=== PATIENT | female | born 1945 | race African-American/Black ===

== ENCOUNTER → 2016-11-01 | Outpatient (CLI) | payer MEDICARE, MEDICAID ==
--- NOTE | 2016-11-09 09:02 | RADIOLOGY REPORT (SQ) ---
EXAM DESCRIPTION: CT SOFT TISSUE NECK WITH COMPLETED DATE/TIME: 11/01/2016 8:10 pm REASON FOR STUDY: LEUKEMIA C91.10 CHRONIC LYMPHOCYTIC LEUK OF B-CELL TYPE NOT ACHIEVE R COMPARISON: Dx PET-CT 10/01/2015, 01/02/2016 CT brain 08/17/2013 CT sinuses 09/22/2006, 08/16/2011, 05/25/2016 TECHNIQUE: Post IV contrasted scanning from skull base through lung apices with review of bone, soft tissue and lung windows. Reconstructed coronal and sagittal MPR images reviewed. All images stored on PACS. All CT scanners at this facility use dose modulation, iterative reconstruction, and/or weight based d osing when appropriate to reduce radiation dose to as low as reasonably achievable (ALARA). [facility]: Dose Right [facility]: CareDose [facility]: Dose Right [facility]: Teradose 4D [facility]: [employer] CONTRAST TYPE AND DOSE: 80mL Isovue 370- low osmolar. RENAL FUNCTION: 1.4 RADIATION DOSE: 15.76 mGy. LIMITATIONS: None. FINDINGS: SKULL BASE: Intact. MAJOR SALIVARY GLANDS: The bilateral parotid glands, left submandibular gland, and bilateral sublingu al glands are unremarkable. In the right submandibular triangle, there is a soft tissue mass, 4.4 x 4 x 2.3 cm in size, either an enlarged lymph node or diffusely infiltrated right submandibular gland with tumor. LYMPHADENOPATHY: Adenopathy is seen in the right neck, with carotid space lymph nodes as follows: 1.5 x 0.9 cm axial image 56 1.3 x 1.2 cm axial image 53 1.4 x 0.9 cm axial image 40. In the right submandibular space, a 4.4 x 4 x 2.3 cm mass is present, soft tissue density. This coul d either represent a large submandibular lymph node or perhaps the submandibular gland diffusely infi ltrated with tumor. This is best shown on coronal image 45, sagittal image 46, and axial images 36 t hrough 51. This is larger than on facial CT from 05/25/2016 where it measured about 3 x 2.6 cm in siz e, but more difficult to perceive due to patient motion artifact and lack of IV contrast. MUCOSAL MASSES OR ASYMMETRY: No mucosal masses or asymmetry. LARYNX/CORDS: No abnormal findings. VASCULAR STRUCTURES: The major vessels are patent. LUNG APICES: Clear. BONES: No fracture. Mild to moderate bilateral foraminal narrowing at C4-5, C5-6 related to facet hy pertrophy. THYROID: Normal size. No masses. PARANASAL SINUSES: Clear. OTHER: No other significant finding. IMPRESSION: Right submandibular region soft tissue mass, either an enlarged lymph node or submandibu lar gland diffusely involved with tumor. Multiple smaller right carotid space lymph nodes. TECHNICAL DOCUMENTATION: JOB ID: [id number] Quality ID # [id number]: Final reports with documentation of one or more dose reduction techniques (e.g., Au tomated exposure control, adjustment of the mA and/or kV according to patient size, use of iterative reconstruction technique) 2010 [employer]- All Rights Reserved
== END ==
LOC: RAD 14:28
PROVIDERS: ATTEND Internal Medicine Medical Oncology
DX: C91.10 Chronic lymphocytic leukemia of B-cell type not having achieved remission (principal); R22.0 Localized swelling, mass and lump, head
CPT/HCPCS: 70491; 71260; 82565

== ENCOUNTER 2017-02-23 13:43 | Observation (INO) | payer MEDICARE, MEDICAID ==
[2017-02-23 16:37] LABS: HEMATOCRIT 31.6 % (36.0-47.0); HEMOGLOBIN 11.2 g/dL (12.0-15.5); MEAN CORPUSCULAR HEMOGLOBIN 34.5 pg (27.0-33.4); MEAN CORPUSCULAR HGB CONC 35.4 g/dL (32.0-36.0); MEAN CORPUSCULAR VOLUME 98 fl (80-97); RED BLOOD COUNT 3.24 10^6/uL (3.72-5.28); RED CELL DISTRIBUTION WIDTH 14.6 % (11.5-14.0); WHITE BLOOD COUNT 4.5 10^3/uL (4.0-10.5)
[2017-02-23 16:58] LABS: BAND NEUTROPHILS % (MANUAL) 6 % (3-5); BASOPHILS % (MANUAL) 0 % (0-2); EOSINOPHILS % (MANUAL) 4 % (0-6); LYMPHOCYTES % (MANUAL) 11 % (13-45); TOTAL CELLS COUNTED 100
[2017-02-23 17:00] LABS: ANISOCYTOSIS SLIGHT; OVALOCYTES SLIGHT; POIKILOCYTOSIS SLIGHT; TARGET CELLS SLIGHT
[2017-02-23 17:06] LABS: ALANINE AMINOTRANSFERASE 23 U/L (9-52); ALBUMIN 3.2 g/dL (3.5-5.0); ALKALINE PHOSPHATASE 100 U/L (38-126); ANION GAP 9 (5-19); ASPARTATE AMINO TRANSFERASE 23 U/L (14-36); BILIRUBIN,DIRECT 0.4 mg/dL (0.0-0.4); BILIRUBIN,TOTAL 1.1 mg/dL (0.2-1.3); BLOOD UREA NITROGEN 14 mg/dL (7-20); CALCIUM 8.2 mg/dL (8.4-10.2); CARBON DIOXIDE 33 mmol/L (22-30); CHLORIDE 97 mmol/L (98-107); CREATININE RESULT 1.14 mg/dL (0.52-1.25); GLUCOSE 90 mg/dL (75-110); SODIUM 138.9 mmol/L (137-145); TOTAL PROTEIN 5.9 g/dL (6.3-8.2)
[2017-02-23 17:13] LABS: POTASSIUM 2.9 mmol/L (3.6-5.0)
[2017-02-23 17:31] LABS: THYROID STIMULATING HORMONE 0.34 uIU/mL (0.47-4.68)
[2017-02-23] MEDS: NORMAL SALINE 1000 ML 1,000 ML IV PRN (18:13)
[2017-02-23] MEDS: AZITHROMYCIN 500 MG in DEXTROSE 5%-WATER 250 ML IV SCH (18:48)
[2017-02-23 20:26] LABS: APPEARANCE,URINE CLEAR; BILIRUBIN,URINE NEGATIVE (NEGATIVE); GLUCOSE, URINE NEGATIVE (NEGATIVE); KETONES,URINE NEGATIVE (NEGATIVE); LEUKOCYTE ESTERASE,URINE NEGATIVE (NEGATIVE); NITRITE,URINE NEGATIVE (NEGATIVE); PROTEIN,URINE NEGATIVE (NEGATIVE); URINE SPECIFIC GRAVITY 1.004; UROBILINOGEN,URINE NEGATIVE mg/dL (<2.0)
[2017-02-23] MEDS: ACETAMINOPHEN 325 MG TABLET PO PRN (21:53)
[2017-02-23] MEDS: POTASSI CL 20 MEQ/50 ML RIDER 20 MEQ/50 ML RTUPB IV SCH ×2 (21:54→23:58)
--- NOTE | 2017-02-23 21:55 | RADIOLOGY REPORT (SQ) ---
EXAM DESCRIPTION: PARANASAL SINUSES COMPLETED DATE/TIME: 02/23/2017 9:13 pm REASON FOR STUDY: cough; DIZZINESS R50.9 FEVER, UNSPECIFIED COMPARISON: None. NUMBER OF VIEWS: 3 TECHNIQUE: Images of the paranasal sinuses acquired. LIMITATIONS: None. FINDINGS: ORBITS: No fracture. No foreign body. SINUSES: No mucosal thickening. No air fluid levels. FACIAL BONES: No fracture. OTHER: No other significant finding. IMPRESSION: NO FOREIGN BODY OR FRACTURE. NO PLAIN RADIOGRAPHIC EVIDENCE FOR SINUS DISEASE. TECHNICAL DOCUMENTATION: JOB ID: [id number] [employer]- All Rights Reserved
--- NOTE | 2017-02-23 21:56 | RADIOLOGY REPORT (SQ) ---
EXAM DESCRIPTION: CHEST PA/LAT COMPLETED DATE/TIME: 02/23/2017 9:13 pm REASON FOR STUDY: cough COMPARISON: 02/25/2014 EXAM PARAMETERS: NUMBER OF VIEWS: two views TECHNIQUE: Digital Frontal and Lateral radiographic views of the chest acquired. RADIATION DOSE: NA LIMITATIONS: none FINDINGS: LUNGS AND PLEURA: No acute opacities, masses or pneumothorax. Similar chronic interstitia l changes -scarring at the lung bases. No pleural effusion. MEDIASTINUM AND HILAR STRUCTURES: Stable. HEART AND VASCULAR STRUCTURES: Stable. BONES: No acute findings. HARDWARE: Right chest port. OTHER: No other significant finding. IMPRESSION: No acute finding.Similar chronic interstitial changes -scarring at the lung bases. TECHNICAL DOCUMENTATION: JOB ID: [id number] [employer]- All Rights Reserved
[2017-02-24] MEDS: POTASSI CL 20 MEQ/50 ML RIDER 20 MEQ/50 ML RTUPB IV SCH ×3 (02:26→21:23)
[2017-02-24] MEDS: ACETAMINOPHEN 325 MG TABLET PO PRN ×2 (08:53→15:40)
--- NOTE | 2017-02-24 12:14 | RADIOLOGY REPORT (SQ) ---
EXAM DESCRIPTION: CT HEAD WITHOUT COMPLETED DATE/TIME: 02/24/2017 12:06 pm REASON FOR STUDY: headache R50.9 FEVER, UNSPECIFIED G44.1 VASCULAR HEADACHE, NOT ELSEWHERE CLASSI FIED COMPARISON: 2013. TECHNIQUE: Axial images acquired through the brain without intravenous contrast. Images reviewed wi th bone, brain and subdural windows. Images stored on PACS. All CT scanners at this facility use dose modulation, iterative reconstruction, and/or weight based d osing when appropriate to reduce radiation dose to as low as reasonably achievable (ALARA). [facility]: Dose Right [facility]: CareDose [facility]: Dose Right [facility]: Teradose 4D [facility]: [employer]roid RADIATION DOSE: mGy. LIMITATIONS: None. FINDINGS: VENTRICLES: Normal size and contour. CEREBRUM: No masses. No hemorrhage. No midline shift. No evidence for acute infarction. Normal gra y/white matter differentiation. No areas of low density in the white matter. CEREBELLUM: No masses. No hemorrhage. No alteration of density. No evidence for acute infarction. EXTRAAXIAL SPACES: No fluid collections. No masses. ORBITS AND GLOBE: No intra- or extraconal masses. Normal contour of globe without masses. CALVARIUM: No fracture. PARANASAL SINUSES: Chronic appearing opacification with mucosal thickening in the bilateral maxillary sinuses and anterior ethmoids. No fluid levels detected. SOFT TISSUES: No mass or hematoma. OTHER: No other significant finding. IMPRESSION: 1. No acute intracranial abnormality. 2. Paranasal sinus disease, likely chronic. COMMENT: Quality ID # [id number]: Final reports with documentation of one or more dose reduction techniques (e.g., Automated exposure control, adjustment of the mA and/or kV according to patient size, use of iterative reconstruction technique) TECHNICAL DOCUMENTATION: JOB ID: [id number] [employer]- All Rights Reserved
--- NOTE | 2017-02-24 13:35 | PDOC H&P ---
History of Present Illness Admission Date/PCP: 02/23/17 13:43 GABRIELLE SMITH MD History of Present Illness: JANET ABBOTT is a 71 year old female, she came to the office for evaluation of symptoms of malaise, headache, she has a history of chronic lymphocytic leukemia on active chemotherapy. She had chemotherapy this past week on Sunday and Sunday. In the office she was evaluated, she was admitted for observation and management of her symptoms, the metabolic panel showed hypokalemia with potassium of 2.4 CT head was done it showed chronic appearing opacification with mucosal thickening in the bilateral maxillary sinuses and anterior ethmoids no fluid level detected. Past Medical History Cardiac Medical History: Reports: Hypertension Pulmonary Medical History: Reports: Bronchitis, Chronic Obstructive Pulmonary Disease (COPD), Pneumonia Malignancy Medical History: Reports: Leukemia - chronic lymphocytic leukemia Musculoskeltal Medical History: Reports: Arthritis - osteoarthritis Social History Smoking Status: Former Smoker Last Time Smoked: 50 years ago Frequency of Alcohol Use: None Hx Recreational Drug Use: No Drugs: None Hx Prescription Drug Abuse: No Family History Family History: Reviewed & Not Pertinent Parental Family History Reviewed: Yes Children Family History Reviewed: Yes Sibling(s) Family History Reviewed.: Yes Medication/Allergy Home Medications: Acyclovir [Acyclovir 400 mg Tablet] 400 mg PO Q12 02/24/17 Hydrocodone/Acetaminophen [[place] 10-325 Tablet] 1 each PO Q8 02/24/17 Levofloxacin [Levaquin 500 mg Tablet] 500 mg PO MOTUWETHFR@1000 02/24/17 Montelukast Sodium [Singulair 10 mg Tablet] 10 mg PO QPM 02/24/17 Nystatin [Mycostatin 295025 Unit/mL Susp 60 mL] 4 ml PO Q6 02/24/17 Ondansetron HCl [Zofran 8 mg Tablet] 8 mg PO HSP PRN 02/24/17 Allergies/Adverse Reactions: No Known Allergies Allergy (Verified 08/01/15 19:55) Review of Systems Constitutional: PRESENT: fatigue, headache(s), weakness Eyes: ABSENT: visual disturbances Ears: ABSENT: hearing changes Cardiovascular: ABSENT: chest pain, dyspnea on exertion, edema, orthropnea, palpitations Respiratory: ABSENT: cough, hemoptysis Gastrointestinal: ABSENT: abdominal pain, constipation, diarrhea, hematemesis, hematochezia, nausea, vomiting Genitourinary: ABSENT: dysuria, hematuria Musculoskeletal: ABSENT: joint swelling Integumentary: ABSENT: rash, wounds Neurological: ABSENT: abnormal gait, abnormal speech, confusion, dizziness, focal weakness, syncope Psychiatric: ABSENT: anxiety, depression, homidical ideation, suicidal ideation Endocrine: ABSENT: cold intolerance, heat intolerance, menstrual abnormalities, polydipsia, polyuria Hematologic/Lymphatic: ABSENT: easy bleeding, easy bruising, lymphadenopathy Physical Exam Vital Signs: Temp Pulse Resp BP Pulse Ox 97.6 F 59 L 16 133/79 H 96 02/24/17 12:27 02/24/17 12:27 02/24/17 12:27 02/24/17 12:27 02/24/17 12:27 Intake & Output 02/23/17 02/24/17 02/25/17 06:59 06:59 06:59 Intake Total 1527 Balance 1527 Weight 64.5 kg General appearance: PRESENT: no acute distress, well-developed, well-nourished Head exam: PRESENT: atraumatic, normocephalic Eye exam: PRESENT: conjunctiva pink, EOMI, PERRLA Ear exam: PRESENT: normal external ear exam Mouth exam: PRESENT: moist, tongue midline Neck exam: PRESENT: full ROM Respiratory exam: PRESENT: clear to auscultation sendy Cardiovascular exam: PRESENT: RRR, +S1, +S2 Pulses: PRESENT: normal dorsalis pedis pul, +2 pedal pulses bilateral Vascular exam: PRESENT: normal capillary refill GI/Abdominal exam: PRESENT: normal bowel sounds, soft Rectal exam: PRESENT: deferred Neurological exam: PRESENT: alert, awake, oriented to person, oriented to place , oriented to time, oriented to situation, CN II-XII grossly intact Psychiatric exam: PRESENT: appropriate affect, normal mood Skin exam: PRESENT: dry, intact, warm Results Laboratory Results: 02/23/17 16:25 02/23/17 16:25 02/23/17 02/23/17 02/23/17 16:25 16:25 16:25 WBC 4.5 RBC 3.24 L Hgb 11.2 L Hct 31.6 L MCV 98 H MCH 34.5 H MCHC 35.4 RDW 14.6 H Plt Count 146 L Seg Neutrophils % Not Reportable Lymphocytes % Not Reportable Monocytes % Not Reportable Eosinophils % Not Reportable Basophils % Not Reportable Absolute Neutrophils Not Reportable Absolute Lymphocytes Not Reportable Absolute Monocytes Not Reportable Absolute Eosinophils Not Reportable Absolute Basophils Not Reportable Sodium 138.9 Potassium 2.9 L* Chloride 97 L Carbon Dioxide 33 H Anion Gap 9 BUN 14 Creatinine 1.14 Est GFR ( Amer) 57 L Est GFR (Non-Af Amer) 47 L Glucose 90 Calcium 8.2 L Total Bilirubin 1.1 AST 23 ALT 23 Alkaline Phosphatase 100 Total Protein 5.9 L Albumin 3.2 L TSH 0.34 L Free T4 1.22 Urine Color Urine Appearance Urine pH Ur Specific [place] Urine Protein Urine Glucose (UA) Urine Ketones Urine Blood Urine Nitrite Ur Leukocyte Esterase Urine WBC (Auto) Urine RBC (Auto) 02/23/17 19:00 WBC RBC Hgb Hct MCV MCH MCHC RDW Plt Count Seg Neutrophils % Lymphocytes % Monocytes % Eosinophils % Basophils % Absolute Neutrophils Absolute Lymphocytes Absolute Monocytes Absolute Eosinophils Absolute Basophils Sodium Potassium Chloride Carbon Dioxide Anion Gap BUN Creatinine Est GFR ( Amer) Est GFR (Non-Af Amer) Glucose Calcium Total Bilirubin AST ALT Alkaline Phosphatase Total Protein Albumin TSH Free T4 Urine Color YELLOW Urine Appearance CLEAR Urine pH 6.0 Ur Specific [place] 1.004 Urine Protein NEGATIVE Urine Glucose (UA) NEGATIVE Urine Ketones NEGATIVE Urine Blood NEGATIVE Urine Nitrite NEGATIVE Ur Leukocyte Esterase NEGATIVE Urine WBC (Auto) 1 Urine RBC (Auto) 0 Impressions: Chest X-Ray 02/23/17 00:00 IMPRESSION: No acute finding.Similar chronic interstitial changes -scarring at the lung bases. Sinuses X-Ray 02/23/17 00:00 IMPRESSION: NO FOREIGN BODY OR FRACTURE. NO PLAIN RADIOGRAPHIC EVIDENCE FOR SINUS DISEASE. Head CT 02/24/17 00:00 IMPRESSION: 1. No acute intracranial abnormality. 2. Paranasal sinus disease, likely chronic. Assessment & Plan - Diagnosis (1) Hypokalemia Is this a current diagnosis for this admission?: Yes Plan: Patient is admitted for observation, potassium infusion is given (2) Chronic maxillary sinusitis Is this a current diagnosis for this admission?: Yes (3) Headache Qualifiers: Headache type: unspecified Headache chronicity pattern: unspecified pattern Intractability: not intractable Qualified Code(s): R51 - Headache Is this a current diagnosis for this admission?: Yes (4) Chronic lymphocytic leukemia B-cell type not having achieved remission Is this a current diagnosis for this admission?: Yes
[2017-02-24 14:21] LABS: ALANINE AMINOTRANSFERASE 19 U/L (9-52); ALKALINE PHOSPHATASE 80 U/L (38-126); ANION GAP 8 (5-19); ASPARTATE AMINO TRANSFERASE 24 U/L (14-36); BILIRUBIN,DIRECT 0.4 mg/dL (0.0-0.4); BILIRUBIN,TOTAL 0.9 mg/dL (0.2-1.3); BLOOD UREA NITROGEN 15 mg/dL (7-20); CARBON DIOXIDE 34 mmol/L (22-30); CHLORIDE 100 mmol/L (98-107); CREATININE RESULT 1.05 mg/dL (0.52-1.25); GLUCOSE 139 mg/dL (75-110); POTASSIUM 3.1 mmol/L (3.6-5.0); SODIUM 141.9 mmol/L (137-145); TOTAL PROTEIN 5.6 g/dL (6.3-8.2)
[2017-02-24] MEDS ORDERED: ONDANSETRON HCL 8 MG TABLET PO PRN (15:36)
--- NOTE | 2017-02-24 15:43 | PDOC DISCHARGE SUMMARY ---
General - Admit/Disc Date/PCP Admission Date/Primary Care Provider: 02/23/17 13:43 GABRIELLE SMITH MD Discharge Date: 02/24/17 - Discharge Diagnosis (1) Hypokalemia Is this a current diagnosis for this admission?: Yes (2) Chronic maxillary sinusitis Is this a current diagnosis for this admission?: Yes (3) Headache Is this a current diagnosis for this admission?: Yes (4) Chronic lymphocytic leukemia B-cell type not having achieved remission Is this a current diagnosis for this admission?: Yes - Additional Information Discharge Diet: Regular Discharge Activity: Activity As Tolerated Home Medications: Acyclovir [Acyclovir 400 mg Tablet] 400 mg PO Q12 02/24/17 Hydrocodone/Acetaminophen [[place] 10-325 Tablet] 1 each PO Q8 02/24/17 Levofloxacin [Levaquin 500 mg Tablet] 500 mg PO MOTUWETHFR@1000 02/24/17 Montelukast Sodium [Singulair 10 mg Tablet] 10 mg PO QPM 02/24/17 Nystatin [Mycostatin 569415 Unit/1 ml Susp 60 ml Btl] 4 ml PO Q6 02/24/17 Ondansetron HCl [Zofran 8 mg Tablet] 8 mg PO HSP PRN 02/24/17 History of Present Illness History of Present Illness: JANET ABBOTT is a 71 year old female, she came to the office for evaluation of symptoms of malaise, headache, she has a history of chronic lymphocytic leukemia on active chemotherapy. She had chemotherapy this past week on Sunday and Sunday. In the office she was evaluated, she was admitted for observation and management of her symptoms, the metabolic panel showed hypokalemia with potassium of 2.4 CT head was done it showed chronic appearing opacification with mucosal thickening in the bilateral maxillary sinuses and anterior ethmoids no fluid level detected. Hospital Course Hospital Course: Patient was admitted for the management of hypokalemia, headache, sinusitis. She has chronic lymphocytic leukemia on active chemotherapy. She was given IV potassium replacement therapy, IV azithromycin antibiotic. Physical Exam Vital Signs: Temp Pulse Resp BP Pulse Ox 97.6 F 84 16 133/79 H 96 02/24/17 12:27 02/24/17 14:00 02/24/17 12:27 02/24/17 12:27 02/24/17 12:27 Intake & Output 02/23/17 02/24/17 02/25/17 06:59 06:59 06:59 Intake Total 1527 375 Balance 1527 375 Weight 64.5 kg General appearance: PRESENT: no acute distress Eye exam: PRESENT: PERRLA Respiratory exam: PRESENT: clear to auscultation sendy Cardiovascular exam: PRESENT: +S1, +S2 GI/Abdominal exam: PRESENT: soft Neurological exam: PRESENT: alert, CN II-XII grossly intact Results Laboratory Results: 02/23/17 16:25 02/24/17 13:50 02/23/17 02/23/17 02/23/17 16:25 16:25 16:25 WBC 4.5 RBC 3.24 L Hgb 11.2 L Hct 31.6 L MCV 98 H MCH 34.5 H MCHC 35.4 RDW 14.6 H Plt Count 146 L Seg Neutrophils % Not Reportable Lymphocytes % Not Reportable Monocytes % Not Reportable Eosinophils % Not Reportable Basophils % Not Reportable Absolute Neutrophils Not Reportable Absolute Lymphocytes Not Reportable Absolute Monocytes Not Reportable Absolute Eosinophils Not Reportable Absolute Basophils Not Reportable Sodium 138.9 Potassium 2.9 L* Chloride 97 L Carbon Dioxide 33 H Anion Gap 9 BUN 14 Creatinine 1.14 Est GFR ( Amer) 57 L Est GFR (Non-Af Amer) 47 L Glucose 90 Calcium 8.2 L Total Bilirubin 1.1 AST 23 ALT 23 Alkaline Phosphatase 100 Total Protein 5.9 L Albumin 3.2 L TSH 0.34 L Free T4 1.22 Urine Color Urine Appearance Urine pH Ur Specific [place] Urine Protein Urine Glucose (UA) Urine Ketones Urine Blood Urine Nitrite Ur Leukocyte Esterase Urine WBC (Auto) Urine RBC (Auto) 02/23/17 02/24/17 19:00 13:50 WBC RBC Hgb Hct MCV MCH MCHC RDW Plt Count Seg Neutrophils % Lymphocytes % Monocytes % Eosinophils % Basophils % Absolute Neutrophils Absolute Lymphocytes Absolute Monocytes Absolute Eosinophils Absolute Basophils Sodium 141.9 Potassium 3.1 L Chloride 100 Carbon Dioxide 34 H Anion Gap 8 BUN 15 Creatinine 1.05 Est GFR ( Amer) > 60 Est GFR (Non-Af Amer) 52 L Glucose 139 H Calcium 8.0 L Total Bilirubin 0.9 AST 24 ALT 19 Alkaline Phosphatase 80 Total Protein 5.6 L Albumin 3.0 L TSH Free T4 Urine Color YELLOW Urine Appearance CLEAR Urine pH 6.0 Ur Specific [place] 1.004 Urine Protein NEGATIVE Urine Glucose (UA) NEGATIVE Urine Ketones NEGATIVE Urine Blood NEGATIVE Urine Nitrite NEGATIVE Ur Leukocyte Esterase NEGATIVE Urine WBC (Auto) 1 Urine RBC (Auto) 0 Impressions: Chest X-Ray 02/23/17 00:00 IMPRESSION: No acute finding.Similar chronic interstitial changes -scarring at the lung bases. Sinuses X-Ray 02/23/17 00:00 IMPRESSION: NO FOREIGN BODY OR FRACTURE. NO PLAIN RADIOGRAPHIC EVIDENCE FOR SINUS DISEASE. Head CT 02/24/17 00:00 IMPRESSION: 1. No acute intracranial abnormality. 2. Paranasal sinus disease, likely chronic.
[2017-02-24] MEDS ORDERED: NYSTATIN PO SCH (15:45)
[2017-02-24] MEDS ORDERED: HYDROCODONE/ACETAMINOPHEN 10-325 MG TABLET PO SCH (15:45)
[2017-02-24] MEDS ORDERED: MONTELUKAST SODIUM 10 MG TABLET PO SCH (18:00)
[2017-02-24] MEDS: NYSTATIN 500000 UNIT/5 ML UDCUP PO SCH (18:05)
[2017-02-24] MEDS: AZITHROMYCIN 500 MG in DEXTROSE 5%-WATER 250 ML IV SCH (19:30)
[2017-02-24] MEDS: NORMAL SALINE 1000 ML 1,000 ML IV PRN (19:31)
[2017-02-24] MEDS ORDERED: PROMETHAZINE HCL 25 MG TABLET PO PRN (20:36)
[2017-02-25] MEDS: POTASSI CL 20 MEQ/50 ML RIDER 20 MEQ/50 ML RTUPB IV SCH (00:24)
[2017-02-25] MEDS: HYDROCODONE/ACETAMINOPHEN 10-325 MG TABLET PO SCH ×2 (00:26→05:46)
[2017-02-25] MEDS: NYSTATIN 500000 UNIT/5 ML UDCUP PO SCH ×3 (00:26→11:31)
[2017-02-25] MEDS: ACYCLOVIR 800 MG TABLET PO SCH ×2 (00:26→09:37)
[2017-02-25 07:29] VITALS: BP 122/69
== END 2017-02-25 12:24 | disposition home or self-care (01) ==
LOC: 3W 13:43
PROVIDERS: ADMIT Internal Medicine; ATTEND Internal Medicine
DX: E87.6 Hypokalemia (principal); J32.0 Chronic maxillary sinusitis; R51 Headache; C91.10 Chronic lymphocytic leukemia of B-cell type not having achieved remission; I10 Essential (primary) hypertension; J44.9 Chronic obstructive pulmonary disease, unspecified; Z87.891 Personal history of nicotine dependence
CPT/HCPCS: 36415 ×2; 87086; 84439; 84443; 85025; 80076; 80048; 80053; 81001; 71020; 70220; 70450; G0378 ×3; G0379; A9270 ×6; J3480 ×3; J7060 ×2; J7030 ×2; J0456 ×2; J3490

== ENCOUNTER 2017-03-13 18:03 | Emergency (ER) | payer MEDICARE, MEDICAID ==
[2017-03-13 19:23] LABS: PROTHROMBIN TIME 13.1 SEC (11.4-15.4)
[2017-03-13 19:31] LABS: HEMATOCRIT 31.1 % (36.0-47.0); HEMOGLOBIN 10.8 g/dL (12.0-15.5); HGB HCT DIFFERENCE 1.3; MEAN CORPUSCULAR HEMOGLOBIN 33.7 pg (27.0-33.4); MEAN CORPUSCULAR HGB CONC 34.7 g/dL (32.0-36.0); MEAN CORPUSCULAR VOLUME 97 fl (80-97); RED CELL DISTRIBUTION WIDTH 15.3 % (11.5-14.0); WHITE BLOOD COUNT 7.9 10^3/uL (4.0-10.5)
[2017-03-13 19:47] LABS: BAND NEUTROPHILS % (MANUAL) 8 % (3-5); BASOPHILS % (MANUAL) 0 % (0-2); EOSINOPHILS % (MANUAL) 6 % (0-6); LYMPHOCYTES % (MANUAL) 30 % (13-45); TOTAL CELLS COUNTED 100
[2017-03-13 19:49] LABS: ANISOCYTOSIS SLIGHT; OVALOCYTES SLIGHT; POIKILOCYTOSIS SLIGHT; TOXIC GRANULATION SLIGHT
--- NOTE | 2017-03-13 19:57 | ER Document Report ---
ED Respiratory Problem - General Chief Complaint: Shortness Of Breath Stated Complaint: SHORTNESS OF BREATH Time Seen by Provider: 03/13/17 19:48 Notes: The patient is a 71-year-old female, past medical history CLL (on chemo [id number] , last dose 2 weeks ago), presents with several days of a dry cough, generalized weakness and fever up to 101.4 today. She was given 975 mg Tylenol prior to arrival by EMS. Patient denies shortness of breath, chest pain, rash, urinary symptoms, back pain, sputum, nausea, vomiting, abdominal pain, flank pain, headache or neck stiffness. TRAVEL OUTSIDE OF THE [place] IN LAST 30 DAYS: No - Related Data Allergies/Adverse Reactions: No Known Allergies Allergy (Verified 08/01/15 19:55) Past Medical History - General Information source: Patient - Social History Smoking Status: Never Smoker Chew tobacco use (# tins/day): No Frequency of alcohol use: None Drug Abuse: None Family History: Reviewed & Not Pertinent - Past Medical History Cardiac Medical History: Reports: Hx Hypertension Pulmonary Medical History: Reports: Hx Bronchitis, Hx COPD, Hx Pneumonia Neurological Medical History: Denies: Hx Cerebrovascular Accident Malignancy Medical History: Reports: Hx Leukemia - chronic lymphocytic leukemia Musculoskeltal Medical History: Reports Hx Arthritis - osteoarthritis Psychiatric Medical History: Denies: Hx Depression Past Surgical History: Denies: Hx Bowel Surgery - Immunizations Hx Diphtheria, Pertussis, Tetanus Vaccination: Yes Hx Pneumococcal Vaccination: 08/18/11 Review of Systems - Review of Systems Notes: REVIEW OF SYSTEMS: CONSTITUTIONAL: +fevers, -chills EENT: -eye pain, -difficulty swallowing, -nasal congestion CARDIOVASCULAR:-chest pain, -syncope. RESPIRATORY: +cough, -SOB GASTROINTESTINAL: -abdominal pain, -nausea, -vomiting, -diarrhea GENITOURINARY: -dysuria, -hematuria MUSCULOSKELETAL: -back pain, -neck pain SKIN: -rash or skin lesions. HEMATOLOGIC: -easy bruising or bleeding. LYMPHATIC: -swollen, enlarged glands. NEUROLOGICAL: -altered mental status or loss of consciousness, -headache, - neurologic symptoms PSYCHIATRIC: -anxiety, -depression. ALL OTHER SYSTEMS REVIEWED AND NEGATIVE. Physical Exam - Vital signs Vitals: Temp Pulse Resp BP Pulse Ox 99.7 F 108 H 16 107/67 99 03/13/17 18:09 03/13/17 18:09 03/13/17 18:09 03/13/17 18:09 03/13/17 18:09 - Notes Notes: PHYSICAL EXAMINATION: GENERAL: No acute distress. HEAD: Atraumatic, normocephalic. EYES: Pupils equal round and reactive to light, extraocular movements intact, sclera anicteric, conjunctiva are normal. ENT: nares patent, oropharynx clear without exudates. Moist mucous membranes. NECK: Normal range of motion, supple without lymphadenopathy LUNGS: Breath sounds clear to auscultation bilaterally and equal. No wheezes rales or rhonchi. HEART: Regular rate and rhythm without murmurs ABDOMEN: Soft, nontender, normoactive bowel sounds. No guarding, no rebound. No masses appreciated. EXTREMITIES: Normal range of motion, no pitting or edema. No cyanosis. NEUROLOGICAL: Cranial nerves grossly intact. Normal speech, normal gait. Normal sensory and motor exams. PSYCH: Normal mood, normal affect. SKIN: Warm, Dry, normal turgor, no rashes or lesions noted. Course - Re-evaluation Re-evalutation: Patient appears well. No respiratory distress and vital signs are normal. Her lab work is remarkable for elevation of BUN and creatinine with hypokalemia. This is most likely related to poor fluid intake. After IV fluids and potassium supplementation, patient feels much better. Repeat lung exam is completely clear and chest x-ray does not show any acute abnormalities. Suspect that she may have URI symptoms causing a viral bronchitis. She will follow-up with her primary care physician, Dr. Tristan, tomorrow for a recheck of her kidney function and potassium. Given very strict return precautions and she understands. - Vital Signs Vital signs: Temp Pulse Resp BP Pulse Ox 99.7 F 108 H 18 105/91 H 100 03/13/17 18:09 03/13/17 18:09 03/13/17 21:28 03/13/17 22:31 03/13/17 22:31 - Laboratory Result Diagrams: 03/13/17 18:15 03/13/17 19:57 Laboratory results interpreted by me: 03/13/17 03/13/17 03/13/17 18:15 19:57 19:57 RBC 3.20 L Hgb 10.8 L Hct 31.1 L MCH 33.7 H RDW 15.3 H Plt Count 133 L Seg Neuts % (Manual) 38 L Band Neutrophils % 8 H Monocytes % (Manual) 18 H VBG HCO3 33.2 H Sodium 136.0 L Potassium 3.1 L Chloride 95 L BUN 36 H Creatinine 1.67 H Est GFR ( Amer) 37 L Est GFR (Non-Af Amer) 30 L Total Bilirubin 1.5 H Direct Bilirubin 0.7 H Total Protein 5.8 L Albumin 3.2 L Urine Urobilinogen Ur Leukocyte Esterase 03/13/17 20:12 RBC Hgb Hct MCH RDW Plt Count Seg Neuts % (Manual) Band Neutrophils % Monocytes % (Manual) VBG HCO3 Sodium Potassium Chloride BUN Creatinine Est GFR ( Amer) Est GFR (Non-Af Amer) Total Bilirubin Direct Bilirubin Total Protein Albumin Urine Urobilinogen 4.0 H Ur Leukocyte Esterase SMALL H - Diagnostic Test Radiology reviewed: Image reviewed, Reports reviewed Radiology results interpreted by me: CXR: NAD - EKG Interpretation by Me EKG shows normal: Sinus rhythm, [place], Intervals, QRS Complexes, ST-T Waves Rate: Normal Discharge - Discharge Clinical Impression: Cough, Hypokalemia, BENNIE (acute kidney injury) Condition: Stable Disposition: HOME, SELF-CARE Additional Instructions: Drink plenty of water and eat a banana when he returned home. Follow with Dr. Tristan this week to have your blood work and symptoms rechecked. BRONCHITIS: You have acute bronchitis. This disease is an infection or inflammation of the air passageways in your lungs. Symptoms usually include cough, low grade fever, shortness of breath, and wheezing. The cough usually persists for a couple of weeks. Most cases of bronchitis get better without antibiotics. We prescribe antibiotics when we believe bacteria are damaging your airways, or if there's high risk the bronchitis will worsen into pneumonia. Increase your fluid intake. A cool mist humidifier may make your lungs more comfortable. An expectorant (cough medicine that loosens phlegm) can help. If you smoke, STOP!!! Recovery from bronchitis can be somewhat slow, but you should see improvement within a day or two. Repeated episodes of bronchitis may result in lung damage -- for example, chronic bronchitis, recurrent pneumonias, or emphysema. Call the doctor if you develop increasing fever, shortness of breath, chest pain, bloody sputum, or otherwise worsen. If you have not improved at all after several days, contact the physician. COUGH-SUPPRESSANT & EXPECTORANT MEDICATION: You are to use a cough medication as needed for relief of symptoms. This medicine is a combination of an expectorant (to make the mucous thinner and more easily "coughed up") and a cough suppressant (to reduce the frequency of coughing). The cough-suppressant medicine is related to narcotics. You may experience mild nausea and sleepiness. Some patients who are very sensitive to narcotics may have stomach pain from this medicine. Taking the medicine with food reduces these side effects. Do not drive or work with machinery until you know how this medicine affects you. The expectorant should have no side effects. Iodine-containing expectorants (such as organidin) should not be taken by persons with active thyroid disease unless approved by your doctor. Call the doctor if you develop shortness of breath, hives, rash, itching, lightheadedness, or severe nausea and vomiting. INHALED BRONCHODILATORS: You have received a treatment of and/or prescription for an inhaled bronchodilator -- a medication which stimulates the airways in the lung to dilate. This improves the flow of air in asthma, bronchitis, and emphysema. These medicines have some similarity to adrenaline, and can cause similar side effects: shakiness, racing heart, and a sense of nervousness. These side effects decrease with time. Contact your doctor if these side effects are severe. Do not over-use the medicine. Too-frequent use of the inhaler may make it ineffective. Call your doctor if the inhaler is not controlling your symptoms at the prescribed doses. STEROID MEDICATION: You have been given an injection of or oral medicine of the cortisone/ steroid class. This medication is used to control inflammation or allergy. Gal t is usually only given for a short period of time, until the acute process subsides. There are usually no side effects from short-term use of cortisone-like medications. Some persons feel an increased sense of well-being and are not sleepy at bedtime. Long-term use of cortisone medications is best avoided, unless required for a severe condition. If your condition does not remit, or relapses after the course of corticosteroid medication, you should consult your physician. USE OF ACETAMINOPHEN (Tylenol): Acetaminophen may be taken for pain relief or fever control. It's much safer than aspirin, offering a wider range of "safe" dosages. It is safe during . Some brand names are Tylenol, Panadol, Datril, Anacin 3, Tempra, and Liquiprin. Acetaminophen can be repeated every four hours. The following are maximum recommended dosages: >89 pounds or adults 650 mg to 900 mg Acetaminophen can be repeated every four hours. Maximum dose not to exceed 4000 mg a day. SMOKING: If you smoke, you should stop smoking. The tar and chemicals in cigarette smoke are harmful. Smoking has been shown to cause: emphysema chronic bronchitis lung cancer mouth and throat cancer stomach and pancreas cancer premature aging defects In addition, smoking increases ear and lung infections in children of smokers. FOLLOW-UP CARE: If you have been referred to a physician for follow-up care, call the physician s office for an appointment as you were instructed or within the next two days. If you experience worsening or a significant change in your symptoms, notify the physician immediately or return to the Emergency Department at any time for re-evaluation. Referrals: GABRIELLE SMITH MD [Primary Care Provider] - Follow up as needed
[2017-03-13 20:37] LABS: APPEARANCE,URINE CLEAR; BILIRUBIN,URINE NEGATIVE (NEGATIVE); GLUCOSE, URINE NEGATIVE (NEGATIVE); KETONES,URINE NEGATIVE (NEGATIVE); LEUKOCYTE ESTERASE,URINE SMALL (NEGATIVE); NITRITE,URINE NEGATIVE (NEGATIVE); PROTEIN,URINE NEGATIVE (NEGATIVE); URINE SPECIFIC GRAVITY 1.009
[2017-03-13 20:40] LABS: ALANINE AMINOTRANSFERASE 21 U/L (9-52); ALBUMIN 3.2 g/dL (3.5-5.0); ALKALINE PHOSPHATASE 76 U/L (38-126); ANION GAP 11 (5-19); ASPARTATE AMINO TRANSFERASE 30 U/L (14-36); BILIRUBIN,DIRECT 0.7 mg/dL (0.0-0.4); BILIRUBIN,TOTAL 1.5 mg/dL (0.2-1.3); BLOOD UREA NITROGEN 36 mg/dL (7-20); CALCIUM 8.5 mg/dL (8.4-10.2); CARBON DIOXIDE 30 mmol/L (22-30); CHLORIDE 95 mmol/L (98-107); CREATININE RESULT 1.67 mg/dL (0.52-1.25); GLUCOSE 100 mg/dL (75-110); POTASSIUM 3.1 mmol/L (3.6-5.0); TOTAL PROTEIN 5.8 g/dL (6.3-8.2)
[2017-03-13 21:01] LABS: VENOUS BLOOD BASE EXCESS 6.3 mmol/L; VENOUS BLOOD HCO3 33.2 mmol/L (20-32); VENOUS BLOOD PCO2 54.6 mmHg (35-63); VENOUS BLOOD PH 7.4 (7.30-7.42)
[2017-03-13] MEDS ORDERED: POTASSIUM CHLORIDE 10 MEQ TABLET.SA PO ONE (21:10)
[2017-03-13] MEDS ORDERED: NORMAL SALINE 1000 ML 1,000 ML IV ONE (21:11)
--- NOTE | 2017-03-13 21:27 | RADIOLOGY REPORT (SQ) ---
EXAM DESCRIPTION: CHEST PA/LAT COMPLETED DATE/TIME: 03/13/2017 9:02 pm REASON FOR STUDY: SOB, cough, fever COMPARISON: 02/23/2017 EXAM PARAMETERS: NUMBER OF VIEWS: two views TECHNIQUE: Digital Frontal and Lateral radiographic views of the chest acquired. RADIATION DOSE: NA LIMITATIONS: none FINDINGS: LUNGS AND PLEURA: No opacities, masses or pneumothorax. No pleural effusion. Chronic appe aring changes are identified. MEDIASTINUM AND HILAR STRUCTURES: No masses or contour abnormalities. HEART AND VASCULAR STRUCTURES: The configuration of the heart and mediastinal structures is unchanged . Tortuous thoracic aorta is again identified. BONES: No acute findings. HARDWARE: Port-A-Cath is unchanged in position. OTHER: Some elevation of the left hemidiaphragm is seen. IMPRESSION: No significant interval change. No acute findings. Other findings as noted above TECHNICAL DOCUMENTATION: JOB ID: [id number] [employer]- All Rights Reserved
[2017-03-13 22:34] VITALS: BP 105/91
== END 2017-03-13 22:45 | disposition home or self-care (01) ==
LOC: ER 18:03
DX: R05 Cough (principal); N17.9 Acute kidney failure, unspecified; E87.6 Hypokalemia; R50.9 Fever, unspecified; I10 Essential (primary) hypertension; C91.10 Chronic lymphocytic leukemia of B-cell type not having achieved remission; R53.1 Weakness; Z79.899 Other long term (current) drug therapy
CPT/HCPCS: 99285; 96360; 36415; 87040; 87086; 85025; 85610; 80053; 81001; 82803; 83605; 71020; J7030; A9270; 87088

== ENCOUNTER 2017-04-19 15:41 | Inpatient (IN) | payer MEDICARE, MEDICAID ==
--- NOTE | 2017-04-19 15:57 | ER Document Report ---
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 Patient was seen in the office today because she was having some tightness in the throat. Has a history of chronic lymphocytic leukemia. Followed by local oncology. Local primary care doctor. Was hospitalized approximately 2 months ago for pneumonia. Has not had any chemotherapy in approximately 1 month. Has had some fevers and chills and worsening cough with increased sputum production. Denies any abdominal pain. Denies dysuria. Denies any major shortness of breath at this time. TRAVEL OUTSIDE OF THE [place] IN LAST 30 DAYS: No - HPI Onset: Last week Onset/Duration: Gradual Associated symptoms: Chills, Productive cough, Hoarseness, Sore throat - Related Data Allergies/Adverse Reactions: No Known Allergies Allergy (Verified 04/19/17 15:46) Home Medications: Current Home Medications No Home Medications 04/19/17 [History] Past Medical History - General Information source: Patient, Relative - Information given by her 2 sisters - Social History Smoking Status: Never Smoker Drug Abuse: None Lives with: Family Family History: Reviewed & Not Pertinent Patient has suicidal ideation: No Patient has homicidal ideation: No - Past Medical History Cardiac Medical History: Reports: Hx Hypertension Pulmonary Medical History: Reports: Hx Bronchitis, Hx COPD, Hx Pneumonia Neurological Medical History: Denies: Hx Cerebrovascular Accident Renal/ Medical History: Denies: Hx Peritoneal Dialysis Malignancy Medical History: Reports: Hx Leukemia - chronic lymphocytic leukemia Musculoskeltal Medical History: Reports Hx Arthritis - osteoarthritis Psychiatric Medical History: Denies: Hx Depression Past Surgical History: Denies: Hx Bowel Surgery - Immunizations Hx Diphtheria, Pertussis, Tetanus Vaccination: Yes Hx Pneumococcal Vaccination: 08/18/11 Review of Systems - Review of Systems Constitutional: No symptoms reported EENT: No symptoms reported, Throat pain Cardiovascular: No symptoms reported Respiratory: Cough, Short of breath, Sputum Gastrointestinal: No symptoms reported Genitourinary: No symptoms reported Female Genitourinary: No symptoms reported Musculoskeletal: No symptoms reported Skin: No symptoms reported Hematologic/Lymphatic: No symptoms reported, See HPI Neurological/Psychological: No symptoms reported Physical Exam - Vital signs Vitals: Temp Pulse Resp BP Pulse Ox 99.4 F 118 H 24 H 145/103 H 95 04/19/17 15:46 04/19/17 15:46 04/19/17 15:46 04/19/17 15:46 04/19/17 15:46 Interpretation: Tachycardic - General General appearance: Appears well, Alert - HEENT Head: Normocephalic, Atraumatic Eyes: Normal Pupils: PERRL Mucous membranes: Dry Neck: Normal - Respiratory Respiratory status: No respiratory distress Chest status: Nontender Breath sounds: Stridor, Wheezing Chest palpation: Normal - Cardiovascular Rhythm: Regular Heart sounds: Normal auscultation Murmur: No - Abdominal Inspection: Normal Distension: No distension Bowel sounds: Normal Tenderness: Nontender Organomegaly: No organomegaly - Back Back: Normal, Nontender - Extremities General upper extremity: Normal inspection, Nontender, Normal color, Normal ROM , Normal temperature General lower extremity: Normal inspection, Nontender, Normal color, Normal ROM , Normal temperature, Normal weight bearing. No: Merrill's sign - Neurological Neuro grossly intact: Yes Cognition: Normal Orientation: AAOx4 Monica Coma Scale Eye Opening: Spontaneous Monica Coma Scale Verbal: Oriented [place] Coma Scale Motor: Obeys Commands Monica Coma Scale Total: 15 Speech: Normal Motor strength normal: LUE, RUE, LLE, RLE Sensory: Normal - Psychological Associated symptoms: Normal affect, Normal mood - Skin Skin Temperature: Warm Skin Moisture: Dry Skin Color: Normal Course - Re-evaluation Re-evalutation: 04/19/17 19:09 Patient patient's presentation and her medical history started on antibiotics and steroids. No obvious stridor now at this time. Heart rate still little elevated. BNP is elevated. Ordered IV antibiotics already. I did consult with patient's primary care doctor, Dr. Tristan who will admit patient for observation at this time. 04/19/17 19:11 Laboratory 04/19/17 04/19/17 04/19/17 16:20 16:20 16:20 WBC 13.4 H RBC 3.17 L Hgb 10.5 L Hct 31.3 L MCV 99 H MCH 33.1 MCHC 33.5 RDW 16.7 H Plt Count 256 Total Counted 100 Seg Neutrophils % Not Reportable Seg Neuts % (Manual) 22 L Band Neutrophils % 11 H Lymphocytes % Not Reportable Lymphocytes % (Manual) 52 H Atypical Lymphs % 1 Monocytes % Not Reportable Monocytes % (Manual) 7 Eosinophils % Not Reportable Eosinophils % (Manual) 4 Basophils % Not Reportable Basophils % (Manual) 0 Metamyelocytes % 3 H Absolute Neutrophils Not Reportable Abs Neuts (Manual) 4.8 Absolute Lymphocytes Not Reportable Abs Lymphs (Manual) 7.1 H Absolute Monocytes Not Reportable Abs Monocytes (Manual) 0.9 Absolute Eosinophils Not Reportable Absolute Eos (Manual) 0.5 Absolute Basophils Not Reportable Abs Basophils (Manual) 0.0 Toxic Granulation SLIGHT Toxic Vacuolation PRESENT Platelet Comment ADEQUATE Poikilocytosis SLIGHT Anisocytosis 1+ Target Cells SLIGHT Ovalocytes SLIGHT Schistocytes SLIGHT PT 12.4 INR 0.86 APTT 25.3 Sodium 146.6 H Potassium 3.8 Chloride 100 Carbon Dioxide 34 H Anion Gap 13 BUN 45 H Creatinine 2.30 H Est GFR ( Amer) 25 L Est GFR (Non-Af Amer) 21 L Glucose 95 Lactic Acid Calcium 8.8 Total Bilirubin 0.7 Direct Bilirubin 0.5 H Indirect Bilirubin Not Reportable Neonat Total Bilirubin Not Reportable AST 33 ALT 16 Alkaline Phosphatase 111 Creatine Kinase < 20 L Troponin I NT-Pro-B Natriuret Pep Total Protein 7.5 Albumin 3.8 Urine Color Urine Appearance Urine pH Ur Specific [place] Urine Protein Urine Glucose (UA) Urine Ketones Urine Blood Urine Nitrite Urine Bilirubin Urine Urobilinogen Ur Leukocyte Esterase Urine WBC (Auto) Urine RBC (Auto) Squamous Epi Cells Auto U Non-Squamous Epis Auto Urine Ascorbic Acid 04/19/17 04/19/17 04/19/17 16:20 16:20 18:09 WBC RBC Hgb Hct MCV MCH MCHC RDW Plt Count Total Counted Seg Neutrophils % Seg Neuts % (Manual) Band Neutrophils % Lymphocytes % Lymphocytes % (Manual) Atypical Lymphs % Monocytes % Monocytes % (Manual) Eosinophils % Eosinophils % (Manual) Basophils % Basophils % (Manual) Metamyelocytes % Absolute Neutrophils Abs Neuts (Manual) Absolute Lymphocytes Abs Lymphs (Manual) Absolute Monocytes Abs Monocytes (Manual) Absolute Eosinophils Absolute Eos (Manual) Absolute Basophils Abs Basophils (Manual) Toxic Granulation Toxic Vacuolation Platelet Comment Poikilocytosis Anisocytosis Target Cells Ovalocytes Schistocytes PT INR APTT Sodium Potassium Chloride Carbon Dioxide Anion Gap BUN Creatinine Est GFR ( Amer) Est GFR (Non-Af Amer) Glucose Lactic Acid 1.7 Calcium Total Bilirubin Direct Bilirubin Indirect Bilirubin Neonat Total Bilirubin AST ALT Alkaline Phosphatase Creatine Kinase Troponin I < 0.012 NT-Pro-B Natriuret Pep 1250 H Total Protein Albumin Urine Color STRAW Urine Appearance CLEAR Urine pH 7.0 Ur Specific [place] 1.003 Urine Protein NEGATIVE Urine Glucose (UA) NEGATIVE Urine Ketones NEGATIVE Urine Blood NEGATIVE Urine Nitrite NEGATIVE Urine Bilirubin NEGATIVE Urine Urobilinogen NEGATIVE Ur Leukocyte Esterase NEGATIVE Urine WBC (Auto) 5 Urine RBC (Auto) 1 Squamous Epi Cells Auto 1 U Non-Squamous Epis Auto 1 Urine Ascorbic Acid NEGATIVE Chest X-Ray 04/19/17 16:11 IMPRESSION: Cannot exclude a limited infiltrate in the lingula. Soft Tissue Neck X-Ray 04/19/17 16:11 IMPRESSION: Possible croup. - Vital Signs Vital signs: Temp Pulse Resp BP Pulse Ox 98.8 F 118 H 22 H 147/87 H 97 04/19/17 18:41 04/19/17 15:46 04/19/17 19:00 04/19/17 18:57 04/19/17 19:00 - Laboratory Result Diagrams: 04/19/17 16:20 04/19/17 16:20 Laboratory results interpreted by me: 04/19/17 04/19/17 04/19/17 16:20 16:20 16:20 WBC 13.4 H RBC 3.17 L Hgb 10.5 L Hct 31.3 L MCV 99 H RDW 16.7 H Seg Neuts % (Manual) 22 L Band Neutrophils % 11 H Lymphocytes % (Manual) 52 H Metamyelocytes % 3 H Abs Lymphs (Manual) 7.1 H Sodium 146.6 H Carbon Dioxide 34 H BUN 45 H Creatinine 2.30 H Est GFR ( Amer) 25 L Est GFR (Non-Af Amer) 21 L Direct Bilirubin 0.5 H Creatine Kinase < 20 L NT-Pro-B Natriuret Pep 1250 H Discharge - Discharge Clinical Impression: Chronic lymphocytic leukemia, Croup Pneumonia Qualifiers: Pneumonia type: due to unspecified organism Laterality: left Lung location: unspecified part of lung Qualified Code(s): J18.9 - Pneumonia, unspecified organism Disposition: ADMITTED OBSERVATION Admitting Provider: [facility] Unit Admitted: Telemetry
[2017-04-19] MEDS ORDERED: NORMAL SALINE 1000 ML 1,000 ML IV ONE (16:11)
--- NOTE | 2017-04-19 16:20 | ER Document Report ---
ED General - General Chief Complaint: Sore Throat Stated Complaint: THROAT SWELLING Time Seen by Provider: 04/19/17 15:57 TRAVEL OUTSIDE OF THE [place] IN LAST 30 DAYS: No - Related Data Allergies/Adverse Reactions: No Known Allergies Allergy (Verified 04/19/17 15:46) Past Medical History - Social History Family History: Reviewed & Not Pertinent Patient has suicidal ideation: No Patient has homicidal ideation: No - Past Medical History Cardiac Medical History: Reports: Hx Hypertension Pulmonary Medical History: Reports: Hx Bronchitis, Hx COPD, Hx Pneumonia Neurological Medical History: Denies: Hx Cerebrovascular Accident Renal/ Medical History: Denies: Hx Peritoneal Dialysis Malignancy Medical History: Reports: Hx Leukemia - chronic lymphocytic leukemia Musculoskeltal Medical History: Reports Hx Arthritis - osteoarthritis Psychiatric Medical History: Denies: Hx Depression Past Surgical History: Denies: Hx Bowel Surgery - Immunizations Hx Diphtheria, Pertussis, Tetanus Vaccination: Yes Hx Pneumococcal Vaccination: 08/18/11 Physical Exam - Vital signs Vitals: Temp Pulse Resp BP Pulse Ox 99.4 F 118 H 24 H 145/103 H 95 04/19/17 15:46 04/19/17 15:46 04/19/17 15:46 04/19/17 15:46 04/19/17 15:46 Course - Vital Signs Vital signs: Temp Pulse Resp BP Pulse Ox 99.4 F 118 H 24 H 145/103 H 95 04/19/17 15:46 04/19/17 15:46 04/19/17 15:46 04/19/17 15:46 04/19/17 15:46
[2017-04-19] MEDS ORDERED: ALBUTEROL SULFATE 0.083% NEB 2.5 MG/3 ML AMPUL NEB ONE (16:41)
[2017-04-19 17:13] LABS: PARTIAL THROMBOPLASTIN TIME 25.3 SEC (23.5-35.8); PROTHROMBIN TIME 12.4 SEC (11.4-15.4)
[2017-04-19 17:20] LABS: HEMATOCRIT 31.3 % (36.0-47.0); HEMOGLOBIN 10.5 g/dL (12.0-15.5); HGB HCT DIFFERENCE 0.2; MEAN CORPUSCULAR HEMOGLOBIN 33.1 pg (27.0-33.4); MEAN CORPUSCULAR HGB CONC 33.5 g/dL (32.0-36.0); MEAN CORPUSCULAR VOLUME 99 fl (80-97); RED BLOOD COUNT 3.17 10^6/uL (3.72-5.28); RED CELL DISTRIBUTION WIDTH 16.7 % (11.5-14.0); WHITE BLOOD COUNT 13.4 10^3/uL (4.0-10.5)
--- NOTE | 2017-04-19 17:23 | RADIOLOGY REPORT (SQ) ---
EXAM DESCRIPTION: CHEST PA/LAT COMPLETED DATE/TIME: 04/19/2017 5:14 pm REASON FOR STUDY: cough COMPARISON: 03/13/2017 EXAM PARAMETERS: NUMBER OF VIEWS: two views TECHNIQUE: Digital Frontal and Lateral radiographic views of the chest acquired. RADIATION DOSE: NA LIMITATIONS: none FINDINGS: LUNGS AND PLEURA: There is mild subsegmental atelectasis in the lung bases. Ill-defined o pacification is seen anteriorly on the lateral view. MEDIASTINUM AND HILAR STRUCTURES: No masses or contour abnormalities. HEART AND VASCULAR STRUCTURES: Heart normal size. No evidence for failure. BONES: No acute findings. HARDWARE: None in the chest. OTHER: No other significant finding. IMPRESSION: Cannot exclude a limited infiltrate in the lingula. TECHNICAL DOCUMENTATION: JOB ID: [id number] [employer]- All Rights Reserved
--- NOTE | 2017-04-19 17:24 | RADIOLOGY REPORT (SQ) ---
EXAM DESCRIPTION: SOFT TISSUE NECK COMPLETED DATE/TIME: 04/19/2017 5:14 pm REASON FOR STUDY: cough, stridor COMPARISON: None. NUMBER OF VIEWS: Two views. TECHNIQUE: AP and lateral radiographic image of the soft tissues of the neck. LIMITATIONS: None. FINDINGS: EPIGLOTTIS: Normal. Contour normal. Aryepiglottic folds normal. PREVERTEBRAL SOFT TISSUES: Normal. No soft tissue swelling. SUBGLOTTIC AREA: There is some narrowing in the subglottic region on the AP view. RETROPHARYNGEAL SPACE: Normal. No soft tissue masses. BONES: No significant findings. LUNG APICES: Normal. OTHER: No radiopaque foreign body. No other significant finding. IMPRESSION: Possible croup. TECHNICAL DOCUMENTATION: JOB ID: [id number] [employer]- All Rights Reserved
[2017-04-19 17:33] LABS: TROPONIN I < 0.012 ng/mL
[2017-04-19 17:44] LABS: ALANINE AMINOTRANSFERASE 16 U/L (9-52); ALBUMIN 3.8 g/dL (3.5-5.0); ALKALINE PHOSPHATASE 111 U/L (38-126); ANION GAP 13 (5-19); ASPARTATE AMINO TRANSFERASE 33 U/L (14-36); BILIRUBIN,DIRECT 0.5 mg/dL (0.0-0.4); BILIRUBIN,TOTAL 0.7 mg/dL (0.2-1.3); BLOOD UREA NITROGEN 45 mg/dL (7-20); CALCIUM 8.8 mg/dL (8.4-10.2); CARBON DIOXIDE 34 mmol/L (22-30); CHLORIDE 100 mmol/L (98-107); CREATINE KINASE < 20 U/L (30-135); GLUCOSE 95 mg/dL (75-110); POTASSIUM 3.8 mmol/L (3.6-5.0); SODIUM 146.6 mmol/L (137-145); TOTAL PROTEIN 7.5 g/dL (6.3-8.2)
[2017-04-19] MEDS ORDERED: DEXAMETHASONE SOD PHOS INJ 10 MG/1 ML VIAL IV ONE (17:44)
[2017-04-19 17:45] LABS: BASOPHILS % (MANUAL) 0 % (0-2); EOSINOPHILS % (MANUAL) 4 % (0-6); LYMPHOCYTES % (MANUAL) 52 % (13-45); TOTAL CELLS COUNTED 100
[2017-04-19 17:48] LABS: TOXIC GRANULATION SLIGHT; TOXIC VACUOLATION PRESENT
[2017-04-19 17:49] LABS: ANISOCYTOSIS 1+; OVALOCYTES SLIGHT; POIKILOCYTOSIS SLIGHT; SCHISTOCYTES SLIGHT; TARGET CELLS SLIGHT
[2017-04-19 17:51] LABS: BAND NEUTROPHILS % (MANUAL) 11 % (3-5)
[2017-04-19] MEDS ORDERED: CEFTRIAXONE INJ 1000 MG VIAL IV ONE (18:16)
[2017-04-19] MEDS ORDERED: AZITHROMYCIN INJ 500 MG VIAL IV ONE (18:28)
[2017-04-19 18:49] LABS: APPEARANCE,URINE CLEAR; BILIRUBIN,URINE NEGATIVE (NEGATIVE); GLUCOSE, URINE NEGATIVE (NEGATIVE); KETONES,URINE NEGATIVE (NEGATIVE); LEUKOCYTE ESTERASE,URINE NEGATIVE (NEGATIVE); NITRITE,URINE NEGATIVE (NEGATIVE); PROTEIN,URINE NEGATIVE (NEGATIVE); URINE SPECIFIC GRAVITY 1.003; UROBILINOGEN,URINE NEGATIVE mg/dL (<2.0)
[2017-04-19] MEDS ORDERED: NORMAL SALINE 1000 ML 1,000 ML IV PRN (20:58)
[2017-04-19] MEDS ORDERED: IPRATROPIUM/ALBUTEROL 0.5-2.5 MG/3 ML AMPUL NEB PRN (21:04)
[2017-04-19] MEDS ORDERED: RINGERS SOLUTION,LACTATED 1,000 ML IV PRN (21:04)
[2017-04-19] MEDS ORDERED: LABETALOL HCL INJ 20 MG/4 ML DISP.SYRIN IV PRN (21:09)
--- NOTE | 2017-04-19 21:31 | EKG REPORT ---
SEVERITY:- ABNORMAL ECG - SINUS RHYTHM CONSIDER LEFT VENTRICULAR HYPERTROPHY : Confirmed by: Ina Bloom 19-Apr-2017 21:31:32
[2017-04-19 21:54] LABS: MAGNESIUM 1.3 mg/dL (1.6-2.3); PHOSPHORUS 2.7 mg/dL (2.5-4.5)
[2017-04-19 22:26] LABS: THYROID STIMULATING HORMONE 0.8 uIU/mL (0.47-4.68)
--- NOTE | 2017-04-20 01:34 | RADIOLOGY REPORT (SQ) ---
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 TECHNIQUE: Dynamic and static grayscale images acquired of the kidneys and bladder and recorded on P ACS. Additional selected color Doppler and spectral images recorded. LIMITATIONS: Study is limited somewhat due to overlying bowel gas. FINDINGS: RIGHT KIDNEY: 7.8 cm in length. Normal echogenicity. No solid or suspicious masses. No hydronephrosis. No calcifications. LEFT KIDNEY: 7.2 cm in length. Normal echogenicity. No solid or suspicious masses. No hydronep hrosis. No calcifications. BLADDER: No masses. OTHER FINDINGS: No other significant finding. IMPRESSION: Limited study as noted above. No significant renal abnormalities were identified. TECHNICAL DOCUMENTATION: JOB ID: [id number] [employer]- All Rights Reserved
[2017-04-20 06:46] LABS: HEMATOCRIT 26.5 % (36.0-47.0); HGB HCT DIFFERENCE 0.5; MEAN CORPUSCULAR HEMOGLOBIN 33.9 pg (27.0-33.4); MEAN CORPUSCULAR HGB CONC 34.1 g/dL (32.0-36.0); MEAN CORPUSCULAR VOLUME 99 fl (80-97); RED BLOOD COUNT 2.67 10^6/uL (3.72-5.28); RED CELL DISTRIBUTION WIDTH 16.5 % (11.5-14.0); WHITE BLOOD COUNT 12.4 10^3/uL (4.0-10.5)
[2017-04-20 07:10] LABS: ANION GAP 11 (5-19); BLOOD UREA NITROGEN 38 mg/dL (7-20); CALCIUM 8.4 mg/dL (8.4-10.2); CARBON DIOXIDE 31 mmol/L (22-30); CHLORIDE 103 mmol/L (98-107); CREATININE RESULT 1.94 mg/dL (0.52-1.25); GLUCOSE 114 mg/dL (75-110); POTASSIUM 3.9 mmol/L (3.6-5.0); SODIUM 145.4 mmol/L (137-145)
[2017-04-20 07:47] LABS: BAND NEUTROPHILS % (MANUAL) 12 % (3-5); BASOPHILS % (MANUAL) 0 % (0-2); EOSINOPHILS % (MANUAL) 0 % (0-6); LYMPHOCYTES % (MANUAL) 14 % (13-45); TOTAL CELLS COUNTED 100
[2017-04-20 07:49] LABS: ANISOCYTOSIS 1+; OVALOCYTES 1+; POIKILOCYTOSIS 1+; ROULEAUX 1+; SCHISTOCYTES SLIGHT; TOXIC GRANULATION 1+
[2017-04-20] MEDS ORDERED: ENOXAPARIN SODIUM INJ 40 MG/0.4 ML DISP.SYRIN SUBCUT SCH (10:00)
[2017-04-20] MEDS: ENOXAPARIN SODIUM INJ 30 MG/0.3 ML DISP.SYRIN SUBCUT SCH (10:31)
--- NOTE | 2017-04-20 19:01 | PDOC H&P ---
History of Present Illness Admission Date/PCP: 04/19/17 21:04 ERUM HENAO MD History of Present Illness: JANET ABBOTT is a 71 year old female, she has a history of chronic lymphocytic leukemia, she was recently admitted and treated for MRSA pneumonia and she was discharged on 04/06/2017. The last time she was admitted she had severe hoarseness of voice, a CAT scan of the soft tissue neck with contrast was done on 03/20/2017, showed diffusely abnormal supraglottic larynx with lumpy thickening of the rightward of the epiglottis on the right aryepiglottic fold. There was diffuse mucosal membrane thickening throughout the true and false vocal cords at a time direct visualization by ENT was recommended by the radiologist. She saw the ENT surgeon outpatient, she underwent laryngoscopy, she was found to have edema of the vocal cords, because of these findings she was referred to the emergency room for evaluation. She was seen in emergency room, evaluated, there was no stridor that would suggest obstruction of the upper airway, she was given a dose of Decadron. She was also found to have elevated serum creatinine, 2.30, the urinalysis was bland, there was no cast or inflammatory cells in the urine that would suggest acute glomerulonephritis. The kidney ultrasound was done, did not show any obstructive uropathy, there is no hydronephrosis. Past Medical History Cardiac Medical History: Reports: Hypertension Pulmonary Medical History: Reports: Bronchitis, Pneumonia Malignancy Medical History: Reports: Leukemia - chronic lymphocytic leukemia Musculoskeltal Medical History: Reports: Arthritis - osteoarthritis Infectious Medical History: Reports: Methicillin-Resistant Staph Aureus Social History Lives with: Family Smoking Status: Former Smoker Frequency of Alcohol Use: None Hx Recreational Drug Use: No Drugs: None Hx Prescription Drug Abuse: No Family History Family History: Reviewed & Not Pertinent Parental Family History Reviewed: Yes Children Family History Reviewed: Yes Sibling(s) Family History Reviewed.: Yes Medication/Allergy Home Medications: No Home Medications 04/19/17 Allergies/Adverse Reactions: No Known Allergies Allergy (Verified 04/19/17 15:46) Review of Systems Constitutional: PRESENT: fatigue Eyes: ABSENT: visual disturbances Ears: ABSENT: hearing changes Cardiovascular: ABSENT: chest pain, dyspnea on exertion, edema, orthropnea, palpitations Respiratory: ABSENT: cough, hemoptysis Gastrointestinal: ABSENT: abdominal pain, constipation, diarrhea, hematemesis, hematochezia, nausea, vomiting Genitourinary: ABSENT: dysuria, hematuria Musculoskeletal: ABSENT: joint swelling Integumentary: ABSENT: rash, wounds Neurological: ABSENT: abnormal gait, abnormal speech, confusion, dizziness, focal weakness, syncope Psychiatric: ABSENT: anxiety, depression, homidical ideation, suicidal ideation Endocrine: ABSENT: cold intolerance, heat intolerance, menstrual abnormalities, polydipsia, polyuria Hematologic/Lymphatic: ABSENT: easy bleeding, easy bruising, lymphadenopathy Physical Exam Vital Signs: Temp Pulse Resp BP Pulse Ox 97.8 F 69 16 147/67 H 100 04/20/17 17:08 04/20/17 17:08 04/20/17 17:08 04/20/17 17:08 04/20/17 17:08 Intake & Output 04/19/17 04/20/17 04/21/17 06:59 06:59 06:59 Intake Total 480 1200 Balance 480 1200 Weight 57.2 kg General appearance: PRESENT: no acute distress Head exam: PRESENT: atraumatic, normocephalic Eye exam: PRESENT: PERRLA Ear exam: PRESENT: normal external ear exam Mouth exam: PRESENT: dry mucosa, tongue midline, other - oral thrush Neck exam: PRESENT: full ROM Respiratory exam: PRESENT: clear to auscultation sendy Cardiovascular exam: PRESENT: RRR, +S1, +S2 Vascular exam: PRESENT: normal capillary refill GI/Abdominal exam: PRESENT: normal bowel sounds, soft Rectal exam: PRESENT: deferred Neurological exam: PRESENT: alert, awake, oriented to person, oriented to place , oriented to time, oriented to situation, CN II-XII grossly intact Psychiatric exam: PRESENT: appropriate affect, normal mood Skin exam: PRESENT: dry Results Laboratory Results: 04/20/17 06:35 04/20/17 06:35 04/19/17 04/19/17 04/20/17 21:24 21:24 06:35 WBC 12.4 H RBC 2.67 L Hgb 9.0 L Hct 26.5 L MCV 99 H MCH 33.9 H MCHC 34.1 RDW 16.5 H Plt Count 224 Seg Neutrophils % Not Reportable Lymphocytes % Not Reportable Monocytes % Not Reportable Eosinophils % Not Reportable Basophils % Not Reportable Absolute Neutrophils Not Reportable Absolute Lymphocytes Not Reportable Absolute Monocytes Not Reportable Absolute Eosinophils Not Reportable Absolute Basophils Not Reportable Sodium Potassium Chloride Carbon Dioxide Anion Gap BUN Creatinine Est GFR ( Amer) Est GFR (Non-Af Amer) Glucose Calcium Phosphorus 2.7 Magnesium 1.3 L TSH 0.80 Free T4 1.15 04/20/17 06:35 WBC RBC Hgb Hct MCV MCH MCHC RDW Plt Count Seg Neutrophils % Lymphocytes % Monocytes % Eosinophils % Basophils % Absolute Neutrophils Absolute Lymphocytes Absolute Monocytes Absolute Eosinophils Absolute Basophils Sodium 145.4 H Potassium 3.9 Chloride 103 Carbon Dioxide 31 H Anion Gap 11 BUN 38 H Creatinine 1.94 H Est GFR ( Amer) 31 L Est GFR (Non-Af Amer) 26 L Glucose 114 H Calcium 8.4 Phosphorus Magnesium TSH Free T4 Impressions: Chest X-Ray 04/19/17 16:11 IMPRESSION: Cannot exclude a limited infiltrate in the lingula. Soft Tissue Neck X-Ray 04/19/17 16:11 IMPRESSION: Possible croup. Renal Ultrasound 04/20/17 00:00 IMPRESSION: Limited study as noted above. No significant renal abnormalities were identified. Assessment & Plan - Diagnosis (1) Acute kidney injury Is this a current diagnosis for this admission?: Yes Plan: This is probably prerenal acute kidney injury, the urinalysis was bland, no urinary inflammatory cells , there is no cough there is no protein there is no hematuria, she will be treated with IV fluid, will continue to follow kidney function (2) Chronic lymphocytic leukemia B-cell type not having achieved remission Is this a current diagnosis for this admission?: Yes (3) Chronic sinusitis with recurrent bronchitis Is this a current diagnosis for this admission?: Yes
[2017-04-20 19:10] LABS: ALANINE AMINOTRANSFERASE 25 U/L (9-52); ALBUMIN 3.1 g/dL (3.5-5.0); ALKALINE PHOSPHATASE 83 U/L (38-126); ANION GAP 13 (5-19); ASPARTATE AMINO TRANSFERASE 29 U/L (14-36); BILIRUBIN,DIRECT 0.3 mg/dL (0.0-0.4); BILIRUBIN,TOTAL 0.5 mg/dL (0.2-1.3); BLOOD UREA NITROGEN 41 mg/dL (7-20); CALCIUM 8.4 mg/dL (8.4-10.2); CARBON DIOXIDE 27 mmol/L (22-30); CHLORIDE 100 mmol/L (98-107); GLUCOSE 106 mg/dL (75-110); POTASSIUM 3.6 mmol/L (3.6-5.0); SODIUM 139.8 mmol/L (137-145); TOTAL PROTEIN 6.1 g/dL (6.3-8.2)
[2017-04-20 19:17] LABS: HEMATOCRIT 27.5 % (36.0-47.0); HEMOGLOBIN 9.4 g/dL (12.0-15.5); HGB HCT DIFFERENCE 0.7; MEAN CORPUSCULAR HEMOGLOBIN 33.7 pg (27.0-33.4); MEAN CORPUSCULAR HGB CONC 34.2 g/dL (32.0-36.0); MEAN CORPUSCULAR VOLUME 99 fl (80-97); RED BLOOD COUNT 2.79 10^6/uL (3.72-5.28); RED CELL DISTRIBUTION WIDTH 16.7 % (11.5-14.0); WHITE BLOOD COUNT 14.1 10^3/uL (4.0-10.5)
[2017-04-20] MEDS ORDERED: NORMAL SALINE 1000 ML 1,000 ML IV PRN (19:24)
[2017-04-20 19:29] LABS: ANISOCYTOSIS 1+; BAND NEUTROPHILS % (MANUAL) 14 % (3-5); BASOPHILS % (MANUAL) 0 % (0-2); EOSINOPHILS % (MANUAL) 0 % (0-6); LYMPHOCYTES % (MANUAL) 27 % (13-45); OVALOCYTES SLIGHT; POIKILOCYTOSIS SLIGHT; TOTAL CELLS COUNTED 100; TOXIC GRANULATION SLIGHT; TOXIC VACUOLATION PRESENT
[2017-04-21 05:57] LABS: HEMATOCRIT 25.6 % (36.0-47.0); HEMOGLOBIN 8.8 g/dL (12.0-15.5); HGB HCT DIFFERENCE 0.8; MEAN CORPUSCULAR HEMOGLOBIN 33.8 pg (27.0-33.4); MEAN CORPUSCULAR HGB CONC 34.3 g/dL (32.0-36.0); MEAN CORPUSCULAR VOLUME 98 fl (80-97); RED CELL DISTRIBUTION WIDTH 16.8 % (11.5-14.0); WHITE BLOOD COUNT 11.3 10^3/uL (4.0-10.5)
[2017-04-21 06:11] LABS: ANION GAP 10 (5-19); BLOOD UREA NITROGEN 39 mg/dL (7-20); CALCIUM 8.1 mg/dL (8.4-10.2); CARBON DIOXIDE 32 mmol/L (22-30); CHLORIDE 101 mmol/L (98-107); CREATININE RESULT 1.72 mg/dL (0.52-1.25); GLUCOSE 92 mg/dL (75-110); POTASSIUM 3.9 mmol/L (3.6-5.0); SODIUM 142.6 mmol/L (137-145)
[2017-04-21 06:20] LABS: BAND NEUTROPHILS % (MANUAL) 17 % (3-5); BASOPHILS % (MANUAL) 0 % (0-2); EOSINOPHILS % (MANUAL) 0 % (0-6); LYMPHOCYTES % (MANUAL) 22 % (13-45); NUCLEATED RED BLOOD CELLS 1 /100 WBC (0); TOTAL CELLS COUNTED 100
[2017-04-21 06:22] LABS: ANISOCYTOSIS 1+; TOXIC GRANULATION SLIGHT
[2017-04-21] MEDS: ENOXAPARIN SODIUM INJ 30 MG/0.3 ML DISP.SYRIN SUBCUT SCH (11:51)
--- NOTE | 2017-04-21 14:02 | PDOC PROGRESS REPORT ---
Subjective Progress Note for:: 04/21/17 Subjective:: No chest pain or difficulty with breathing. No headache or dizziness. Denied nausea or vomiting. No abdominal pain. No fever or chills. Remain on IV fluid hydration. Physical Exam Vital Signs: Temp Pulse Resp BP Pulse Ox 97.5 F 51 L 20 165/68 H 100 04/21/17 11:28 04/21/17 11:28 04/21/17 11:28 04/21/17 11:28 04/21/17 11:28 Intake & Output 04/20/17 04/21/17 04/22/17 06:59 06:59 05:59 Intake Total 480 4031 Balance 480 4031 Weight 57.2 kg 59.3 kg General appearance: PRESENT: no acute distress, well-developed, well-nourished Head exam: PRESENT: atraumatic, normocephalic Eye exam: PRESENT: conjunctiva pink, EOMI, PERRLA. ABSENT: scleral icterus Mouth exam: PRESENT: moist Respiratory exam: PRESENT: clear to auscultation sendy Cardiovascular exam: PRESENT: RRR. ABSENT: diastolic murmur, rubs, systolic murmur GI/Abdominal exam: PRESENT: normal bowel sounds, soft. ABSENT: distended, guarding, mass, organolmegaly, rebound, tenderness Extremities exam: ABSENT: pedal edema Musculoskeletal exam: PRESENT: normal inspection Neurological exam: PRESENT: alert, awake, oriented to person, oriented to place , oriented to time, oriented to situation, CN II-XII grossly intact. ABSENT: motor sensory deficit Psychiatric exam: PRESENT: appropriate affect, normal mood. ABSENT: homicidal ideation, suicidal ideation Skin exam: PRESENT: dry, intact, warm. ABSENT: cyanosis, rash Results Laboratory Results: 04/21/17 05:00 04/21/17 05:00 04/20/17 04/20/17 04/21/17 18:40 18:40 05:00 WBC 14.1 H 11.3 H RBC 2.79 L 2.60 L Hgb 9.4 L 8.8 L Hct 27.5 L 25.6 L MCV 99 H 98 H MCH 33.7 H 33.8 H MCHC 34.2 34.3 RDW 16.7 H 16.8 H Plt Count 235 224 Seg Neutrophils % Not Reportable Not Reportable Lymphocytes % Not Reportable Not Reportable Monocytes % Not Reportable Not Reportable Eosinophils % Not Reportable Not Reportable Basophils % Not Reportable Not Reportable Absolute Neutrophils Not Reportable Not Reportable Absolute Lymphocytes Not Reportable Not Reportable Absolute Monocytes Not Reportable Not Reportable Absolute Eosinophils Not Reportable Not Reportable Absolute Basophils Not Reportable Not Reportable Sodium 139.8 Potassium 3.6 Chloride 100 Carbon Dioxide 27 Anion Gap 13 BUN 41 H Creatinine 1.90 H Est GFR ( Amer) 32 L Est GFR (Non-Af Amer) 26 L Glucose 106 Calcium 8.4 Total Bilirubin 0.5 AST 29 ALT 25 Alkaline Phosphatase 83 Total Protein 6.1 L Albumin 3.1 L 04/21/17 05:00 WBC RBC Hgb Hct MCV MCH MCHC RDW Plt Count Seg Neutrophils % Lymphocytes % Monocytes % Eosinophils % Basophils % Absolute Neutrophils Absolute Lymphocytes Absolute Monocytes Absolute Eosinophils Absolute Basophils Sodium 142.6 Potassium 3.9 Chloride 101 Carbon Dioxide 32 H Anion Gap 10 BUN 39 H Creatinine 1.72 H Est GFR ( Amer) 36 L Est GFR (Non-Af Amer) 29 L Glucose 92 Calcium 8.1 L Total Bilirubin AST ALT Alkaline Phosphatase Total Protein Albumin Impressions: Chest X-Ray 04/19/17 16:11 IMPRESSION: Cannot exclude a limited infiltrate in the lingula. Soft Tissue Neck X-Ray 04/19/17 16:11 IMPRESSION: Possible croup. Renal Ultrasound 04/20/17 00:00 IMPRESSION: Limited study as noted above. No significant renal abnormalities were identified. Assessment & Plan - Diagnosis (1) Uncontrolled stage 2 hypertension Is this a current diagnosis for this admission?: Yes Plan: Start on Amlodipine 5 mg po daily. Maintain on IV Labetalotol therapy although her heart rate may be a limiting factor. Consider use of IV Hydralazine if sbp remain > 160mmHg. (2) Acute kidney injury Is this a current diagnosis for this admission?: Yes Plan: Continue IV fluid hydration with normal saline @ 100 mL /hour. Repeat BMP in am. (3) Personal history of CLL (chronic lymphocytic leukemia) Is this a current diagnosis for this admission?: Yes Plan: Continue current medication management. - Time Time Spent with patient: 25-34 minutes Medications reviewed and adjusted accordingly: Yes Anticipated discharge: Home Within: Other - Inpatient Certification Based on my medical assessment, after consideration of the patient's comorbidities, presenting symptoms, or acuity I expect that the services needed warrant INPATIENT care.: Yes I certify that my determination is in accordance with my understanding of Medicare's requirements for reasonable and necessary INPATIENT services [42 CFR 412.3e].: Yes Medical Necessity: Need Close Monitoring Due to Risk of Patient Decompensation, Need For IV Fluids, Risk of Complication if Not Cared For in Hospital 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
[2017-04-21] MEDS ORDERED: AMLODIPINE BESYLATE 5 MG TABLET PO ONE (15:00)
[2017-04-22 07:38] LABS: HEMATOCRIT 28.1 % (36.0-47.0); HEMOGLOBIN 9.6 g/dL (12.0-15.5); HGB HCT DIFFERENCE 0.7; MEAN CORPUSCULAR HEMOGLOBIN 33.6 pg (27.0-33.4); MEAN CORPUSCULAR HGB CONC 34.1 g/dL (32.0-36.0); MEAN CORPUSCULAR VOLUME 99 fl (80-97); RED BLOOD COUNT 2.85 10^6/uL (3.72-5.28); RED CELL DISTRIBUTION WIDTH 17.2 % (11.5-14.0); WHITE BLOOD COUNT 6.5 10^3/uL (4.0-10.5)
[2017-04-22 07:40] LABS: ANION GAP 10 (5-19); BLOOD UREA NITROGEN 29 mg/dL (7-20); CALCIUM 7.9 mg/dL (8.4-10.2); CARBON DIOXIDE 33 mmol/L (22-30); CHLORIDE 104 mmol/L (98-107); CREATININE RESULT 1.55 mg/dL (0.52-1.25); GLUCOSE 73 mg/dL (75-110); POTASSIUM 3.6 mmol/L (3.6-5.0); SODIUM 146.5 mmol/L (137-145)
[2017-04-22 08:30] LABS: BAND NEUTROPHILS % (MANUAL) 1 % (3-5); BASOPHILS % (MANUAL) 0 % (0-2); EOSINOPHILS % (MANUAL) 6 % (0-6); LYMPHOCYTES % (MANUAL) 24 % (13-45); NUCLEATED RED BLOOD CELLS 2 /100 WBC (0); TOTAL CELLS COUNTED 100
[2017-04-22 08:36] LABS: OVALOCYTES SLIGHT; POIKILOCYTOSIS SLIGHT; POLYCHROMASIA SLIGHT
[2017-04-22 08:37] LABS: ANISOCYTOSIS 1+; PLATELET CLUMPS PRESENT; TARGET CELLS SLIGHT
[2017-04-22] MEDS: ENOXAPARIN SODIUM INJ 30 MG/0.3 ML DISP.SYRIN SUBCUT SCH (09:24)
[2017-04-22] MEDS ORDERED: AMLODIPINE BESYLATE 5 MG TABLET PO SCH (10:00)
[2017-04-22] MEDS ORDERED: AMLODIPINE BESYLATE 5 MG TABLET PO ONE (12:04)
--- NOTE | 2017-04-22 12:04 | PDOC PROGRESS REPORT ---
Subjective Progress Note for:: 04/22/17 Subjective:: No chest pain or difficulty with breathing. She reported slight headache but no dizziness, nausea or vomiting. No abdominal pain. No fever or chills. Remain on IV fluid hydration. Physical Exam Vital Signs: Temp Pulse Resp BP Pulse Ox 97.6 F 64 16 158/89 H 100 04/22/17 08:37 04/22/17 08:37 04/22/17 08:37 04/22/17 08:37 04/22/17 08:37 Intake & Output 04/21/17 04/22/17 04/23/17 07:59 06:59 06:59 Intake Total Balance Weight Physical Exam: General appearance: PRESENT: no acute distress, well-developed, well-nourished Head exam: PRESENT: atraumatic, normocephalic Eye exam: PRESENT: conjunctiva pink, EOMI, PERRLA. ABSENT: scleral icterus Mouth exam: PRESENT: moist Respiratory exam: PRESENT: clear to auscultation sendy Cardiovascular exam: PRESENT: RRR. ABSENT: diastolic murmur, rubs, systolic murmur GI/Abdominal exam: PRESENT: normal bowel sounds, soft. ABSENT: distended, guarding, mass, organomegaly, rebound, tenderness Extremities exam: ABSENT: pedal edema Musculoskeletal exam: PRESENT: normal inspection Neurological exam: PRESENT: alert, awake, oriented to person, oriented to place , oriented to time, oriented to situation, CN II-XII grossly intact. ABSENT: motor sensory deficit Psychiatric exam: PRESENT: appropriate affect, normal mood. ABSENT: homicidal ideation, suicidal ideation Skin exam: PRESENT: dry, intact, warm. ABSENT: cyanosis, rash Results Laboratory Results: 04/22/17 06:30 04/22/17 06:30 04/22/17 04/22/17 06:30 06:30 WBC 6.5 RBC 2.85 L Hgb 9.6 L Hct 28.1 L MCV 99 H MCH 33.6 H MCHC 34.1 RDW 17.2 H Plt Count 245 Seg Neutrophils % Not Reportable Lymphocytes % Not Reportable Monocytes % Not Reportable Eosinophils % Not Reportable Basophils % Not Reportable Absolute Neutrophils Not Reportable Absolute Lymphocytes Not Reportable Absolute Monocytes Not Reportable Absolute Eosinophils Not Reportable Absolute Basophils Not Reportable Sodium 146.5 H Potassium 3.6 Chloride 104 Carbon Dioxide 33 H Anion Gap 10 BUN 29 H Creatinine 1.55 H Est GFR ( Amer) 40 L Est GFR (Non-Af Amer) 33 L Glucose 73 L Calcium 7.9 L Impressions: Chest X-Ray 04/19/17 16:11 IMPRESSION: Cannot exclude a limited infiltrate in the lingula. Soft Tissue Neck X-Ray 04/19/17 16:11 IMPRESSION: Possible croup. Renal Ultrasound 04/20/17 00:00 IMPRESSION: Limited study as noted above. No significant renal abnormalities were identified. Assessment & Plan - Diagnosis (1) Uncontrolled stage 2 hypertension Is this a current diagnosis for this admission?: Yes Plan: Improving but may need further adjustment in Amlodipine dosage if sbp remain > 140 mmHg. (2) Acute kidney injury Is this a current diagnosis for this admission?: Yes Plan: Renal indices are improving. Continue IV fluid hydration with normal saline @ 75 mL /hour. Repeat BMP in am. (3) Personal history of CLL (chronic lymphocytic leukemia) Is this a current diagnosis for this admission?: Yes - Time Time Spent with patient: 35 or more minutes Medications reviewed and adjusted accordingly: Yes Anticipated discharge: Home Within: Other - Inpatient Certification Based on my medical assessment, after consideration of the patient's comorbidities, presenting symptoms, or acuity I expect that the services needed warrant INPATIENT care.: Yes I certify that my determination is in accordance with my understanding of Medicare's requirements for reasonable and necessary INPATIENT services [42 CFR 412.3e].: Yes Medical Necessity: Need Close Monitoring Due to Risk of Patient Decompensation, Need For IV Fluids, Need For Continuous Telemetry Monitoring, Risk of Complication if Not Cared For in Hospital 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 She will receive 5mg extra dose now.
[2017-04-22] MEDS ORDERED: ACETAMINOPHEN 325 MG TABLET PO PRN (12:05)
[2017-04-22] MEDS: NORMAL SALINE 1000 ML 1,000 ML IV PRN (17:04)
[2017-04-23] MEDS ORDERED: AMLODIPINE BESYLATE 10 MG TABLET PO SCH (10:00)
[2017-04-23] MEDS: ENOXAPARIN SODIUM INJ 30 MG/0.3 ML DISP.SYRIN SUBCUT SCH (10:13)
[2017-04-23] MEDS ORDERED: BISACODYL 5 MG TABEC PO ONE (10:30)
[2017-04-23 13:51] LABS: ALANINE AMINOTRANSFERASE 23 U/L (9-52); ALBUMIN 3.3 g/dL (3.5-5.0); ALKALINE PHOSPHATASE 94 U/L (38-126); ANION GAP 12 (5-19); ASPARTATE AMINO TRANSFERASE 28 U/L (14-36); BILIRUBIN,DIRECT 0.3 mg/dL (0.0-0.4); BILIRUBIN,TOTAL 0.5 mg/dL (0.2-1.3); BLOOD UREA NITROGEN 23 mg/dL (7-20); CALCIUM 8.4 mg/dL (8.4-10.2); CARBON DIOXIDE 31 mmol/L (22-30); CHLORIDE 100 mmol/L (98-107); CREATININE RESULT 1.49 mg/dL (0.52-1.25); GLUCOSE 85 mg/dL (75-110); POTASSIUM 3.7 mmol/L (3.6-5.0); TOTAL PROTEIN 6.2 g/dL (6.3-8.2)
[2017-04-23 17:13] LABS: ALANINE AMINOTRANSFERASE 24 U/L (9-52); ALBUMIN 3.3 g/dL (3.5-5.0); ALKALINE PHOSPHATASE 83 U/L (38-126); ANION GAP 10 (5-19); ASPARTATE AMINO TRANSFERASE 30 U/L (14-36); BILIRUBIN,DIRECT 0.3 mg/dL (0.0-0.4); BILIRUBIN,TOTAL 0.4 mg/dL (0.2-1.3); BLOOD UREA NITROGEN 22 mg/dL (7-20); CALCIUM 8.3 mg/dL (8.4-10.2); CARBON DIOXIDE 32 mmol/L (22-30); CHLORIDE 101 mmol/L (98-107); CREATININE RESULT 1.53 mg/dL (0.52-1.25); GLUCOSE 111 mg/dL (75-110); POTASSIUM 3.8 mmol/L (3.6-5.0); SODIUM 142.6 mmol/L (137-145); TOTAL PROTEIN 6.5 g/dL (6.3-8.2)
--- NOTE | 2017-04-23 18:46 | RADIOLOGY REPORT (SQ) ---
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 Images reviewed with lung, soft tissue, and bone windows. Reconstructed coronal and sagittal MPR images revi ewed. All images stored on PACS. All CT scanners at this facility use dose modulation, iterative reconstruction, and/or weight based d osing when appropriate to reduce radiation dose to as low as reasonably achievable (ALARA). [facility]: Dose Right [facility]: CareDose [facility]: Dose Right [facility]: Teradose 4D [facility]: Smart [employer] RADIATION DOSE: Up-to-date CT equipment and radiation dose reduction techniques were employed. CTDIv ol: 10.5 mGy. DLP: 486 mGy-cm.mGy. LIMITATIONS: None. FINDINGS: LOWER CHEST: Stable subsegmental atelectasis/ scarring. NON-CONTRASTED LIVER, SPLEEN, ADRENALS: Evaluation limited by lack of IV contrast. No identified sign ificant masses. Status post splenectomy. PANCREAS: No masses. No peripancreatic inflammatory changes. GALLBLADDER: Surgically absent. RIGHT KIDNEY AND URETER: No suspicious masses. Assessment limited by lack of IV contrast. No signif icant calcifications. No hydronephrosis or hydroureter. LEFT KIDNEY AND URETER: No suspicious masses. Assessment limited by lack of IV contrast. No signifi cant calcifications. No hydronephrosis or hydroureter. AORTA AND RETROPERITONEUM: No aneurysm. No retroperitoneal masses or adenopathy. BOWEL AND PERITONEAL CAVITY: No obvious masses or inflammatory changes. No free fluid. Moderate to s evere fecal retention. APPENDIX: Not visualized. PELVIS, BLADDER, AND ABDOMINAL WALL:No abnormal masses. No free fluid. Bladder normal. BONES: No significant findings. OTHER: No other significant finding. IMPRESSION: MODERATE TO SEVERE FECAL RETENTION. OTHERWISE UNREMARKABLE NONCONTRAST CT OF THE ABDOME N AND PELVIS. NO URINARY TRACT CALCULI OR HYDRONEPHROSIS. COMMENT: Quality ID # [id number]: Final reports with documentation of one or more dose reduction techniques (e.g., Automated exposure control, adjustment of the mA and/or kV according to patient size, use of iterative reconstruction technique) TECHNICAL DOCUMENTATION: JOB ID: [id number] [employer]- All Rights Reserved
[2017-04-23] MEDS ORDERED: DILTIAZEM HCL/D5W 125 MG/125 ML RTUINJ IV PRN (19:13)
--- NOTE | 2017-04-23 19:22 | PDOC PROGRESS REPORT ---
Subjective Progress Note for:: 04/23/17 Subjective:: Patient was seen by the bedside, she complained of severe constipation, she has not had any bowel movement since being in the hospital. She was given Dulcolax 20 mg and despite that she remained constipated, she developed palpitation abdominal pain and chest pain. CT scan of the abdomen and pelvis was done, it showed fecal impaction. She was found to have atrial fibrillation on panel monitor, 12-lead EKG was done that showed atrial fibrillation with rapid ventricular response. Physical Exam Vital Signs: Temp Pulse Resp BP Pulse Ox 98.0 F 101 H 16 125/74 97 04/23/17 16:41 04/23/17 16:41 04/23/17 16:41 04/23/17 16:41 04/23/17 16:41 Intake & Output 04/22/17 04/23/17 04/24/17 06:59 06:59 06:59 Intake Total 3463 1380 Balance 3463 1380 Weight 58.1 kg General appearance: PRESENT: no acute distress Head exam: PRESENT: atraumatic, normocephalic Eye exam: PRESENT: conjunctiva pink, EOMI, PERRLA Ear exam: PRESENT: normal external ear exam Mouth exam: PRESENT: moist, tongue midline Neck exam: PRESENT: full ROM Respiratory exam: PRESENT: clear to auscultation sendy Cardiovascular exam: PRESENT: RRR, +S1, +S2 Pulses: PRESENT: normal dorsalis pedis pul, +2 pedal pulses bilateral Vascular exam: PRESENT: normal capillary refill GI/Abdominal exam: PRESENT: soft Rectal exam: PRESENT: deferred Neurological exam: PRESENT: alert Psychiatric exam: PRESENT: depressed Skin exam: PRESENT: dry, intact, warm Results Laboratory Results: 04/22/17 06:30 04/23/17 16:38 04/23/17 04/23/17 13:02 16:38 Sodium 143.0 142.6 Potassium 3.7 3.8 Chloride 100 101 Carbon Dioxide 31 H 32 H Anion Gap 12 10 BUN 23 H 22 H Creatinine 1.49 H 1.53 H Est GFR ( Amer) 42 L 41 L Est GFR (Non-Af Amer) 35 L 34 L Glucose 85 111 H Calcium 8.4 8.3 L Total Bilirubin 0.5 0.4 AST 28 30 ALT 23 24 Alkaline Phosphatase 94 83 Total Protein 6.2 L 6.5 Albumin 3.3 L 3.3 L Impressions: Chest X-Ray 04/19/17 16:11 IMPRESSION: Cannot exclude a limited infiltrate in the lingula. Soft Tissue Neck X-Ray 04/19/17 16:11 IMPRESSION: Possible croup. Renal Ultrasound 04/20/17 00:00 IMPRESSION: Limited study as noted above. No significant renal abnormalities were identified. Abdomen/Pelvis CT 04/23/17 00:00 IMPRESSION: MODERATE TO SEVERE FECAL RETENTION. OTHERWISE UNREMARKABLE NONCONTRAST CT OF THE ABDOMEN AND PELVIS. NO URINARY TRACT CALCULI OR HYDRONEPHROSIS. Assessment & Plan - Diagnosis (1) Acute kidney injury Is this a current diagnosis for this admission?: Yes (2) Chronic lymphocytic leukemia B-cell type not having achieved remission Is this a current diagnosis for this admission?: Yes (3) Chronic sinusitis with recurrent bronchitis Is this a current diagnosis for this admission?: Yes (4) Fecal impaction Is this a current diagnosis for this admission?: Yes Plan: Give molasses enema (5) Atrial fibrillation with rapid ventricular response Is this a current diagnosis for this admission?: Yes Plan: , Start Cardizem infusion, ordered a 2D echo, order cardiac enzymes every 83
[2017-04-23 21:16] LABS: CREATINE KINASE MB < 0.22 ng/mL (<4.55); TROPONIN I < 0.012 ng/mL
[2017-04-23] MEDS: NORMAL SALINE 1000 ML 1,000 ML IV PRN (22:14)
[2017-04-24] MEDS: NORMAL SALINE 1000 ML 1,000 ML IV PRN ×3 (00:14→13:38)
[2017-04-24 04:15] LABS: HEMATOCRIT 28.4 % (36.0-47.0); HEMOGLOBIN 9.7 g/dL (12.0-15.5); HGB HCT DIFFERENCE 0.7; MEAN CORPUSCULAR HEMOGLOBIN 33.4 pg (27.0-33.4); MEAN CORPUSCULAR VOLUME 98 fl (80-97); RED BLOOD COUNT 2.89 10^6/uL (3.72-5.28); RED CELL DISTRIBUTION WIDTH 16.7 % (11.5-14.0); WHITE BLOOD COUNT 8.5 10^3/uL (4.0-10.5)
[2017-04-24 04:31] LABS: ANION GAP 12 (5-19); BLOOD UREA NITROGEN 21 mg/dL (7-20); CARBON DIOXIDE 29 mmol/L (22-30); CHLORIDE 103 mmol/L (98-107); CREATINE KINASE < 20 U/L (30-135); CREATININE RESULT 1.46 mg/dL (0.52-1.25); GLUCOSE 85 mg/dL (75-110); POTASSIUM 3.4 mmol/L (3.6-5.0); SODIUM 144.2 mmol/L (137-145)
[2017-04-24 04:45] LABS: CREATINE KINASE MB < 0.22 ng/mL (<4.55); TROPONIN I < 0.012 ng/mL
--- NOTE | 2017-04-24 07:51 | EKG REPORT ---
SEVERITY:- ABNORMAL ECG - ATRIAL FIB WITH RVR NONSPECIFIC ST-T CHANGES DUE TO HR : Confirmed by: Ruiz Oconnor MD 24-Apr-2017 07:51:09
[2017-04-24] MEDS: POTASSI CL 20 MEQ/50 ML RIDER 20 MEQ/50 ML RTUPB IV SCH ×2 (10:15→11:50)
[2017-04-24] MEDS: METOPROLOL SUCCINATE 50 MG TAB.SR.24H PO SCH (10:15)
[2017-04-24] MEDS: ENOXAPARIN SODIUM INJ 30 MG/0.3 ML DISP.SYRIN SUBCUT SCH (10:15)
[2017-04-24 12:57] LABS: CREATINE KINASE MB < 0.22 ng/mL (<4.55); TROPONIN I < 0.012 ng/mL
[2017-04-24 15:43] LABS: ALANINE AMINOTRANSFERASE 20 U/L (9-52); ALBUMIN 2.8 g/dL (3.5-5.0); ALKALINE PHOSPHATASE 75 U/L (38-126); ANION GAP 10 (5-19); ASPARTATE AMINO TRANSFERASE 25 U/L (14-36); BILIRUBIN,DIRECT 0.3 mg/dL (0.0-0.4); BILIRUBIN,TOTAL 0.4 mg/dL (0.2-1.3); BLOOD UREA NITROGEN 20 mg/dL (7-20); CALCIUM 7.7 mg/dL (8.4-10.2); CARBON DIOXIDE 28 mmol/L (22-30); CHLORIDE 105 mmol/L (98-107); CREATININE RESULT 1.55 mg/dL (0.52-1.25); GLUCOSE 79 mg/dL (75-110); POTASSIUM 3.7 mmol/L (3.6-5.0); SODIUM 142.5 mmol/L (137-145); TOTAL PROTEIN 5.5 g/dL (6.3-8.2)
--- NOTE | 2017-04-24 17:54 | PDOC PROGRESS REPORT ---
Subjective Progress Note for:: 04/24/17 Subjective:: She was seen by the bedside, yesterday she was transferred from medical floor to intermediate care unit when she developed paroxysmal atrial fibrillation. She was treated with intravenous Cardizem presently sinus rhythm. She also had a CAT scan of the abdomen and pelvis does show fecal impaction, she was treated with molases enema with good results. patient said she feels much better Physical Exam Vital Signs: Temp Pulse Resp BP Pulse Ox 98.2 F 73 22 H 107/73 100 04/24/17 11:09 04/24/17 14:00 04/24/17 11:09 04/24/17 11:09 04/24/17 11:09 Intake & Output 04/23/17 04/24/17 04/25/17 06:59 06:59 06:59 Intake Total 3463 2265 473 Output Total 200 Balance 3463 2065 473 Weight 58.1 kg 57.6 kg General appearance: PRESENT: no acute distress, well-developed, well-nourished Head exam: PRESENT: atraumatic, normocephalic. ABSENT: other Eye exam: PRESENT: conjunctiva pink, EOMI, PERRLA Ear exam: PRESENT: normal external ear exam Mouth exam: PRESENT: moist, tongue midline Neck exam: PRESENT: full ROM. ABSENT: carotid bruit, JVD, lymphadenopathy, thyromegaly Respiratory exam: PRESENT: clear to auscultation sendy Cardiovascular exam: PRESENT: RRR, +S1, +S2 Pulses: PRESENT: normal dorsalis pedis pul, +2 pedal pulses bilateral Vascular exam: PRESENT: normal capillary refill GI/Abdominal exam: PRESENT: normal bowel sounds, soft Rectal exam: PRESENT: deferred Neurological exam: PRESENT: alert, awake, oriented to person, oriented to place , oriented to time, oriented to situation, CN II-XII grossly intact Psychiatric exam: PRESENT: appropriate affect, normal mood Skin exam: PRESENT: dry, intact, warm Results Laboratory Results: 04/24/17 03:35 04/24/17 11:50 04/24/17 04/24/17 04/24/17 03:35 03:35 11:50 WBC 8.5 RBC 2.89 L Hgb 9.7 L Hct 28.4 L MCV 98 H MCH 33.4 MCHC 34.0 RDW 16.7 H Plt Count 238 Sodium 144.2 142.5 Potassium 3.4 L 3.7 Chloride 103 105 Carbon Dioxide 29 28 Anion Gap 12 10 BUN 21 H 20 Creatinine 1.46 H 1.55 H Est GFR ( Amer) 43 L 40 L Est GFR (Non-Af Amer) 36 L 33 L Glucose 85 79 Calcium 8.0 L 7.7 L Total Bilirubin 0.4 AST 25 ALT 20 Alkaline Phosphatase 75 Total Protein 5.5 L Albumin 2.8 L 04/23/17 04/23/17 04/24/17 20:10 20:10 03:35 Creatine Kinase < 20 L CK-MB (CK-2) < 0.22 < 0.22 Troponin I < 0.012 < 0.012 04/24/17 04/24/17 04/24/17 03:35 11:50 11:50 Creatine Kinase < 20 L < 20 L CK-MB (CK-2) < 0.22 Troponin I < 0.012 Impressions: Chest X-Ray 04/19/17 16:11 IMPRESSION: Cannot exclude a limited infiltrate in the lingula. Soft Tissue Neck X-Ray 04/19/17 16:11 IMPRESSION: Possible croup. Renal Ultrasound 04/20/17 00:00 IMPRESSION: Limited study as noted above. No significant renal abnormalities were identified. Abdomen/Pelvis CT 04/23/17 00:00 IMPRESSION: MODERATE TO SEVERE FECAL RETENTION. OTHERWISE UNREMARKABLE NONCONTRAST CT OF THE ABDOMEN AND PELVIS. NO URINARY TRACT CALCULI OR HYDRONEPHROSIS. 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
[2017-04-24] MEDS: ASPIRIN 81 MG TABLET, CHEWABLE PO SCH (18:35)
[2017-04-25] MEDS: NORMAL SALINE 1000 ML 1,000 ML IV PRN ×2 (04:24→20:30)
--- NOTE | 2017-04-25 09:22 | XCELERA REPORT ---
[address] [address] Transthoracic Echocardiogram Report Name: JANET ABBOTT Age: 71 yrs Gender: Female : 1945 Patient Status: Inpatient Patient Location: [address] [place] [address] Study Date: 04/24/2017 10:06 AM Height: 60 in Weight: 128 lb BSA: 1.5 m2 Procedure: A complete two-dimensional transthoracic echocardiogram was performed (2D, M-mode, spectral and color flow Doppler). The study was technically difficult with many images being suboptimal in quality. Reason For Study: new onset a-fib Ordering Physician: ERUM HENAO Performed By: Ariella De La Garza Interpretation Summary The left ventricular ejection fraction is normal. There is borderline concentric left ventricular hypertrophy. Doppler measurements suggest pseudonormalized left ventricular relaxation, which is associated with grade II/IV or mild to moderate diastolic dysfunction The left ventricle is grossly normal size. Not all wall segments were well visualized. Wall motion cannot be accurately commented on, but no definite regional wall motion abnormalities noted. The right ventricular systolic function is normal. The right atrium is borderline dilated. The left atrial size is normal. The right ventricle is borderline dilated. There is a trace amount of mitral regurgitation There is no mitral valve stenosis. There is a trace to mild amount of aortic regurgitation There is no aortic valve stenosis There is a trace or physiologic amount of tricuspid regurgitation Tricuspid regurgitation jet envelope not well defined to measure RV systolic pressure accurately. The aortic root is not well visualized but is probably normal size. The inferior vena cava was not well visualized There is no pericardial effusion. MMode/2D Measurements & Calculations RVDd: 1.5 cm LVIDd: 3.4 cm FS: 32.0 % Ao root diam: 2.7 cm IVSd: 1.0 cm LVIDs: 2.3 cm EDV(Teich): 46.8 ml LVPWd: 1.0 cm ESV(Teich): 18.1 ml Ao root area: 5.5 cm2 EF(Teich): 61.3 % Doppler Measurements & Calculations MV E max jason: MV dec slope: Ao V2 max: AI max jason: 69.9 cm/sec 151.6 cm/sec 343.4 cm/sec MV A max jason: 282.3 cm/sec2 Ao max PG: AI max P.3 cm/sec MV dec time: 9.2 mmHg 47.2 mmHg MV E/A: 0.84 0.25 sec AI dec slope: 99.7 cm/sec2 AI P1/2t: 1009 msec LV V1 max PG: PA V2 max: TR max jason: 4.0 mmHg 88.6 cm/sec 225.3 cm/sec LV V1 max: PA max P.1 mmHg TR max P.1 cm/sec 20.3 mmHg Left Ventricle The left ventricle is grossly normal size. There is borderline concentric left ventricular hypertrophy. The left ventricular ejection fraction is normal. Doppler measurements suggest pseudonormalized left ventricular relaxation, which is associated with grade II/IV or mild to moderate diastolic dysfunction. Not all wall segments were well visualized. Wall motion cannot be accurately commented on, but no definite regional wall motion abnormalities noted. Right Ventricle The right ventricle is borderline dilated. The right ventricular systolic function is normal. Atria The right atrium is borderline dilated. The left atrial size is normal. Interarterial septum not well visualized and not well dopplered. Cannot comment on ASD/PFO presence. Mitral Valve The mitral valve leaflets are sclerotic, but show no functional abnormalities. There is no mitral valve stenosis. There is a trace amount of mitral regurgitation. Aortic Valve The aortic valve is sclerotic, but shows no functional abnormality. There is no aortic valve stenosis. There is a trace to mild amount of aortic regurgitation. Tricuspid Valve The tricuspid valve is not well visualized, but is grossly normal. There is no tricuspid stenosis. There is a trace or physiologic amount of tricuspid regurgitation. Tricuspid regurgitation jet envelope not well defined to measure RV systolic pressure accurately. Pulmonic Valve The pulmonic valve is not well visualized. Great Vessels The aortic root is not well visualized but is probably normal size. The inferior vena cava was not well visualized. Effusions There is no pericardial effusion. : ERUM HENAO > Ina Bloom
[2017-04-25 09:44] LABS: HEMATOCRIT 29.1 % (36.0-47.0); HEMOGLOBIN 9.9 g/dL (12.0-15.5); HGB HCT DIFFERENCE 0.6; MEAN CORPUSCULAR HEMOGLOBIN 33.7 pg (27.0-33.4); MEAN CORPUSCULAR VOLUME 99 fl (80-97); RED BLOOD COUNT 2.93 10^6/uL (3.72-5.28); RED CELL DISTRIBUTION WIDTH 17.1 % (11.5-14.0); WHITE BLOOD COUNT 9.1 10^3/uL (4.0-10.5)
[2017-04-25 09:53] LABS: ALANINE AMINOTRANSFERASE 27 U/L (9-52); ALBUMIN 3.1 g/dL (3.5-5.0); ALKALINE PHOSPHATASE 85 U/L (38-126); ANION GAP 11 (5-19); ASPARTATE AMINO TRANSFERASE 32 U/L (14-36); BILIRUBIN,DIRECT 0.3 mg/dL (0.0-0.4); BILIRUBIN,TOTAL 0.4 mg/dL (0.2-1.3); BLOOD UREA NITROGEN 15 mg/dL (7-20); CALCIUM 8.4 mg/dL (8.4-10.2); CARBON DIOXIDE 28 mmol/L (22-30); CHLORIDE 108 mmol/L (98-107); CREATININE RESULT 1.62 mg/dL (0.52-1.25); GLUCOSE 80 mg/dL (75-110); POTASSIUM 3.9 mmol/L (3.6-5.0); SODIUM 146.9 mmol/L (137-145)
[2017-04-25 10:14] LABS: ANISOCYTOSIS 2+; BAND NEUTROPHILS % (MANUAL) 10 % (3-5); BASOPHILS % (MANUAL) 0 % (0-2); EOSINOPHILS % (MANUAL) 4 % (0-6); HYPOCHROMASIA SLIGHT; LYMPHOCYTES % (MANUAL) 17 % (13-45); OVALOCYTES SLIGHT; PLATELET CLUMPS PRESENT; POIKILOCYTOSIS SLIGHT; POLYCHROMASIA SLIGHT; ROULEAUX SLIGHT; TOTAL CELLS COUNTED 100; TOXIC GRANULATION 2+; TOXIC VACUOLATION PRESENT
[2017-04-25] MEDS: ENOXAPARIN SODIUM INJ 30 MG/0.3 ML DISP.SYRIN SUBCUT SCH (12:47)
[2017-04-25] MEDS: METOPROLOL SUCCINATE 50 MG TAB.SR.24H PO SCH (12:47)
[2017-04-25 14:49] LABS: ANION GAP 9 (5-19); BLOOD UREA NITROGEN 14 mg/dL (7-20); CALCIUM 8.3 mg/dL (8.4-10.2); CARBON DIOXIDE 30 mmol/L (22-30); CHLORIDE 107 mmol/L (98-107); CREATININE RESULT 1.58 mg/dL (0.52-1.25); GLUCOSE 95 mg/dL (75-110)
--- NOTE | 2017-04-25 16:12 | PDOC PROGRESS REPORT ---
Subjective Progress Note for:: 04/25/17 Subjective:: She was seen by the bedside, she continues to improve, she will hopefully be discharged home tomorrow Physical Exam Vital Signs: Temp Pulse Resp BP Pulse Ox 98.6 F 83 20 133/65 H 100 04/25/17 12:50 04/25/17 14:00 04/25/17 12:50 04/25/17 12:50 04/25/17 12:50 Intake & Output 04/24/17 04/25/17 04/26/17 06:59 06:59 06:59 Intake Total 2265 3560 Output Total 200 Balance 2065 3560 Weight 57.6 kg 57.8 kg General appearance: PRESENT: no acute distress, well-developed, well-nourished Head exam: PRESENT: atraumatic, normocephalic Eye exam: PRESENT: conjunctiva pink, EOMI, PERRLA Ear exam: PRESENT: normal external ear exam Mouth exam: PRESENT: moist, tongue midline Neck exam: PRESENT: full ROM Respiratory exam: PRESENT: clear to auscultation sendy Cardiovascular exam: PRESENT: RRR, +S1, +S2 Pulses: PRESENT: normal dorsalis pedis pul, +2 pedal pulses bilateral Vascular exam: PRESENT: normal capillary refill GI/Abdominal exam: PRESENT: normal bowel sounds, soft Rectal exam: PRESENT: deferred Neurological exam: PRESENT: alert, awake, oriented to person, oriented to place , oriented to time, oriented to situation, CN II-XII grossly intact Psychiatric exam: PRESENT: appropriate affect, normal mood. ABSENT: homicidal ideation, suicidal ideation Skin exam: PRESENT: dry, intact, warm Results Laboratory Results: 04/25/17 09:20 04/25/17 14:15 04/25/17 04/25/17 04/25/17 09:20 09:20 14:15 WBC 9.1 RBC 2.93 L Hgb 9.9 L Hct 29.1 L MCV 99 H MCH 33.7 H MCHC 34.0 RDW 17.1 H Plt Count 250 Seg Neutrophils % Not Reportable Lymphocytes % Not Reportable Monocytes % Not Reportable Eosinophils % Not Reportable Basophils % Not Reportable Absolute Neutrophils Not Reportable Absolute Lymphocytes Not Reportable Absolute Monocytes Not Reportable Absolute Eosinophils Not Reportable Absolute Basophils Not Reportable Sodium 146.9 H 146.0 H Potassium 3.9 4.0 Chloride 108 H 107 Carbon Dioxide 28 30 Anion Gap 11 9 BUN 15 14 Creatinine 1.62 H 1.58 H Est GFR ( Amer) 38 L 39 L Est GFR (Non-Af Amer) 32 L 32 L Glucose 80 95 Calcium 8.4 8.3 L Total Bilirubin 0.4 AST 32 ALT 27 Alkaline Phosphatase 85 Total Protein 6.0 L Albumin 3.1 L 04/23/17 04/23/17 04/24/17 20:10 20:10 03:35 Creatine Kinase < 20 L CK-MB (CK-2) < 0.22 < 0.22 Troponin I < 0.012 < 0.012 04/24/17 04/24/17 04/24/17 03:35 11:50 11:50 Creatine Kinase < 20 L < 20 L CK-MB (CK-2) < 0.22 Troponin I < 0.012 Impressions: Chest X-Ray 04/19/17 16:11 IMPRESSION: Cannot exclude a limited infiltrate in the lingula. Soft Tissue Neck X-Ray 04/19/17 16:11 IMPRESSION: Possible croup. Renal Ultrasound 04/20/17 00:00 IMPRESSION: Limited study as noted above. No significant renal abnormalities were identified. Abdomen/Pelvis CT 04/23/17 00:00 IMPRESSION: MODERATE TO SEVERE FECAL RETENTION. OTHERWISE UNREMARKABLE NONCONTRAST CT OF THE ABDOMEN AND PELVIS. NO URINARY TRACT CALCULI OR HYDRONEPHROSIS. Assessment & Plan - Diagnosis (1) Acute kidney injury Is this a current diagnosis for this admission?: Yes (2) Chronic lymphocytic leukemia B-cell type not having achieved remission Is this a current diagnosis for this admission?: Yes (3) Chronic sinusitis with recurrent bronchitis Is this a current diagnosis for this admission?: Yes (4) Fecal impaction Is this a current diagnosis for this admission?: Yes (5) Atrial fibrillation with rapid ventricular response Is this a current diagnosis for this admission?: Yes
[2017-04-25] MEDS: ASPIRIN 81 MG TABLET, CHEWABLE PO SCH (17:25)
[2017-04-26 09:08] LABS: ALANINE AMINOTRANSFERASE 26 U/L (9-52); ALBUMIN 2.9 g/dL (3.5-5.0); ALKALINE PHOSPHATASE 81 U/L (38-126); ANION GAP 11 (5-19); ASPARTATE AMINO TRANSFERASE 31 U/L (14-36); BILIRUBIN,DIRECT 0.4 mg/dL (0.0-0.4); BILIRUBIN,TOTAL 0.5 mg/dL (0.2-1.3); BLOOD UREA NITROGEN 14 mg/dL (7-20); CALCIUM 8.1 mg/dL (8.4-10.2); CARBON DIOXIDE 27 mmol/L (22-30); CHLORIDE 107 mmol/L (98-107); CREATININE RESULT 1.63 mg/dL (0.52-1.25); GLUCOSE 71 mg/dL (75-110); POTASSIUM 3.6 mmol/L (3.6-5.0); SODIUM 144.7 mmol/L (137-145); TOTAL PROTEIN 5.6 g/dL (6.3-8.2)
[2017-04-26] MEDS: METOPROLOL SUCCINATE 50 MG TAB.SR.24H PO SCH (10:20)
[2017-04-26] MEDS: ENOXAPARIN SODIUM INJ 30 MG/0.3 ML DISP.SYRIN SUBCUT SCH (10:21)
[2017-04-26] MEDS: NORMAL SALINE 1000 ML 1,000 ML IV PRN (13:14)
--- NOTE | 2017-04-26 17:21 | PDOC DISCHARGE SUMMARY ---
General - Admit/Disc Date/PCP Admission Date/Primary Care Provider: 04/20/17 15:43 ERUM HENAO MD Discharge Date: 04/27/17 - Discharge Diagnosis (1) Acute kidney injury Is this a current diagnosis for this admission?: Yes (2) Chronic lymphocytic leukemia B-cell type not having achieved remission Is this a current diagnosis for this admission?: Yes (3) Chronic sinusitis with recurrent bronchitis Is this a current diagnosis for this admission?: Yes (4) Fecal impaction Is this a current diagnosis for this admission?: Yes (5) Atrial fibrillation with rapid ventricular response Is this a current diagnosis for this admission?: Yes - Additional Information Resuscitation Status: Full Code Discharge Diet: As Tolerated Discharge Activity: Activity As Tolerated Home Medications: Aspirin [Aspirin 81 mg Chewable Tablet] 81 mg PO QPM #90 tab.chew 04/26/17 Metoprolol Succinate [Toprol Xl 50 mg Tab.sr] 100 mg PO DAILY #90 tab.sr.24h 03/04 Polyethylene Glycol 3350 [Miralax Powder 17 gm/Packet] 1 packet PO DAILY #90 pkg 04/26/17 History of Present Illness History of Present Illness: JANET ABBOTT is a 71 year old female, she has a history of chronic lymphocytic leukemia, she was recently admitted and treated for MRSA pneumonia and she was discharged on 04/06/2017. The last time she was admitted she had severe hoarseness of voice, a CAT scan of the soft tissue neck with contrast was done on 03/20/2017, showed diffusely abnormal supraglottic larynx with lumpy thickening of the rightward of the epiglottis on the right aryepiglottic fold. There was diffuse mucosal membrane thickening throughout the true and false vocal cords at a time direct visualization by ENT was recommended by the radiologist. She saw the ENT surgeon outpatient, she underwent laryngoscopy, she was found to have edema of the vocal cords, because of these findings she was referred to the emergency room for evaluation. She was seen in emergency room, evaluated, there was no stridor that would suggest obstruction of the upper airway, she was given a dose of Decadron. She was also found to have elevated serum creatinine, 2.30, the urinalysis was bland, there was no cast or inflammatory cells in the urine that would suggest acute glomerulonephritis. The kidney ultrasound was done, did not show any obstructive uropathy, there is no hydronephrosis. Hospital Course Hospital Course: Patient was admitted for the management of prerenal acute kidney injury, she was treated with IV fluid with improvement in kidney function, hospital because was complicated with constipation and paroxysmal l atrial fibrillation with rapid irregular response. She was treated with IV Cardizem infusion with spontaneous conversion to sinus rhythm. She has a low leatha S2 score, she does not require anticoagulation but she was treated with aspirin. 2D echo was done , it showed preserved ejection fraction of left ventricle the atrial sizes are normal. The constipation was treated with any enema, she did not respond very well to Dulcolax p.o. Physical Exam Vital Signs: Temp Pulse Resp BP Pulse Ox 98.6 F 78 18 145/81 H 96 04/26/17 16:43 04/26/17 16:43 04/26/17 16:43 04/26/17 16:43 04/26/17 16:43 Intake & Output 04/25/17 04/26/17 04/27/17 06:59 06:59 06:59 Intake Total 3560 3611 500 Balance 3560 3611 500 Weight 57.8 kg 56.2 kg General appearance: PRESENT: no acute distress, well-developed, well-nourished Head exam: PRESENT: atraumatic, normocephalic Eye exam: PRESENT: conjunctiva pink, EOMI, PERRLA Ear exam: PRESENT: normal external ear exam Mouth exam: PRESENT: moist, tongue midline Neck exam: PRESENT: full ROM Respiratory exam: PRESENT: clear to auscultation sendy Cardiovascular exam: PRESENT: RRR, +S1, +S2 Pulses: PRESENT: normal dorsalis pedis pul, +2 pedal pulses bilateral Vascular exam: PRESENT: normal capillary refill GI/Abdominal exam: PRESENT: normal bowel sounds, soft Rectal exam: PRESENT: deferred Neurological exam: PRESENT: alert, awake, oriented to person, oriented to place , oriented to time, oriented to situation, CN II-XII grossly intact Psychiatric exam: PRESENT: appropriate affect, normal mood Skin exam: PRESENT: dry, intact, warm Results Laboratory Results: 04/25/17 09:20 04/26/17 08:20 04/26/17 08:20 Sodium 144.7 Potassium 3.6 Chloride 107 Carbon Dioxide 27 Anion Gap 11 BUN 14 Creatinine 1.63 H Est GFR ( Amer) 38 L Est GFR (Non-Af Amer) 31 L Glucose 71 L Calcium 8.1 L Total Bilirubin 0.5 AST 31 ALT 26 Alkaline Phosphatase 81 Total Protein 5.6 L Albumin 2.9 L 04/23/17 04/23/17 04/24/17 20:10 20:10 03:35 Creatine Kinase < 20 L CK-MB (CK-2) < 0.22 < 0.22 Troponin I < 0.012 < 0.012 04/24/17 04/24/17 04/24/17 03:35 11:50 11:50 Creatine Kinase < 20 L < 20 L CK-MB (CK-2) < 0.22 Troponin I < 0.012 Impressions: Chest X-Ray 04/19/17 16:11 IMPRESSION: Cannot exclude a limited infiltrate in the lingula. Soft Tissue Neck X-Ray 04/19/17 16:11 IMPRESSION: Possible croup. Renal Ultrasound 04/20/17 00:00 IMPRESSION: Limited study as noted above. No significant renal abnormalities were identified. Abdomen/Pelvis CT 04/23/17 00:00 IMPRESSION: MODERATE TO SEVERE FECAL RETENTION. OTHERWISE UNREMARKABLE NONCONTRAST CT OF THE ABDOMEN AND PELVIS. NO URINARY TRACT CALCULI OR HYDRONEPHROSIS.
[2017-04-26] MEDS: ASPIRIN 81 MG TABLET, CHEWABLE PO SCH (18:03)
[2017-04-27 08:22] VITALS: BP 117/76
[2017-04-27] MEDS: METOPROLOL SUCCINATE 50 MG TAB.SR.24H PO SCH (08:37)
[2017-04-27] MEDS: NORMAL SALINE 1000 ML 1,000 ML IV PRN (08:37)
[2017-04-27] MEDS: ENOXAPARIN SODIUM INJ 30 MG/0.3 ML DISP.SYRIN SUBCUT SCH (08:37)
== END 2017-04-27 10:10 | disposition home or self-care (01) | DRG 683 ==
LOC: ER 15:41 → EH 19:18 → UNDOADMOB 19:18 → 4N 20:25 → EH 20:25 → 4N 21:04 → OBSVTOIN 04-20 15:43 → 3W 04-23 21:50
PROVIDERS: ADMIT Internal Medicine; ATTEND Internal Medicine
DX: N17.9 Acute kidney failure, unspecified (principal); C91.10 Chronic lymphocytic leukemia of B-cell type not having achieved remission; I48.0 Paroxysmal atrial fibrillation; K59.00 Constipation, unspecified; I10 Essential (primary) hypertension; J32.9 Chronic sinusitis, unspecified; J40 Bronchitis, not specified as acute or chronic; Z86.14 Personal history of Methicillin resistant Staphylococcus aureus infection
CPT/HCPCS: 36415; 70360; 71020; 74176; 76770; 80048; 80053; 81001; 82550; 82553; 83605; 83735; 83880; 84100; 84439; 84443; 84484; 85025; 85027; 85610; 85730; 87040; 93005; 93010; 93306; 94640; 96361; 96365; 96375; 99285; G0378; J0696; J1100; J1650; J3480; J3490; J7030

== ENCOUNTER → 2017-06-05 | Outpatient (CLI) | payer MEDICARE, MEDICAID ==
--- NOTE | 2017-06-06 08:40 | RADIOLOGY REPORT (SQ) ---
EXAM DESCRIPTION: PET CT SKULL/THIGH COMPLETED DATE/TIME: 06/05/2017 8:00 pm REASON FOR STUDY: LEUKEMIA C91.10 CHRONIC LYMPHOCYTIC LEUK OF B-CELL TYPE NOT ACHIEVE R COMPARISON: PET-CT 01/02/2016, 11/01/2016 CT soft tissue neck 11/01/2016 CT chest 11/01/2016 RADIONUCLIDE AND DOSE: 10.0 mCi F18 FDG The route of agent administration: Intravenous FASTING BLOOD SUGAR: 76 mg/dl CONTRAST TYPE AND DOSE: No CT contrast given. TECHNIQUE: Blood glucose level was verified. Above dose of FDG was injected intravenously. 2-D seg mented attenuation correction images were obtained from the base of the skull to the midthighs. Nonc ontrast CT images were obtained for attenuation correction and fusion with emission images. CT image s were performed without oral or intravenous contrast and are not sensitive for parenchymal lesions. A series of overlapping emission PET images were obtained. Images reviewed and manipulated at [facility]ep [facility] work station by the radiologist. Images stored on PACS. LIMITATIONS: None. FINDINGS: HEAD AND NECK: The massive adenopathy seen on 11/01/2016 in the right para pharyngeal space , jugulodigastric and submandibular regions has near completely resolved. On today's study, there is minimal metabolically active soft tissue medial to the right mandibular angle, difficult to measure, with SUV of 3.7. On the prior CT 11/01/2016, a mass measuring 4.4 x 4 cm was present in this area. There is minimal residual soft palate and right pharyngeal tonsil activity with SUV 3.2. No measurab le mass. This is similar compared to 01/02/2016 PET-CT. There is minimal right vocal cord activity with SUV 2.6, this may be the physiologic rather than due to a vocal cord primary lesion. CHEST: No areas of abnormal metabolic activity in the chest. ABDOMEN AND PELVIS: No areas of abnormal metabolic activity in the abdomen or pelvis. Expected physi ologic activity is present in the genitourinary system and bowel. PROXIMAL LOWER EXTREMITIES: No areas of abnormal metabolic activity in the soft tissues of the lower extremities. BONES: No abnormal metabolic activity in the visualized skeleton. ADDITIONAL CT FINDINGS: There is bilateral maxillary sinus inflammatory change, chronic atelectasis a nd scarring in the medial aspect right middle lobe and medial aspect of the lingula, chronic bronchie ctasis and scarring in the medial right lower lobe. Permanent right central line tip superior vena c rob. Mild cardiomegaly. Surgical clips post splenectomy and appendectomy. Degenerative changes lum bar spine. OTHER: Liver background activity 2.0 SUV. Blood pool background activity 1.6 SUV. IMPRESSION: Treatment response, significant decrease in right neck adenopathy compared to the CT sof t tissue neck 11/01/2016. TECHNICAL DOCUMENTATION: JOB ID: [id number] [employer]- All Rights Reserved
== END ==
LOC: RAD 17:15
PROVIDERS: ATTEND Internal Medicine Medical Oncology
DX: C91.10 Chronic lymphocytic leukemia of B-cell type not having achieved remission (principal)
CPT/HCPCS: 78815; A9552

== ENCOUNTER 2017-06-26 19:28 | Inpatient (IN) | payer MEDICARE, MEDICAID ==
[2017-06-26] MEDS ORDERED: NORMAL SALINE 1000 ML 1,000 ML IV ONE (19:48)
--- NOTE | 2017-06-26 20:20 | RADIOLOGY REPORT (SQ) ---
EXAM DESCRIPTION: CHEST SINGLE VIEW COMPLETED DATE/TIME: 06/26/2017 8:12 pm REASON FOR STUDY: SOB, cough COMPARISON: 04/19/2017. EXAM PARAMETERS: NUMBER OF VIEWS: One view. TECHNIQUE: Single frontal radiographic view of the chest acquired. RADIATION DOSE: NA LIMITATIONS: None. FINDINGS: LUNGS AND PLEURA: Mild basilar scarring. No focal infiltrates, masses or pneumothorax. No pleural effusion. MEDIASTINUM AND HILAR STRUCTURES: No masses. Contour normal. HEART AND VASCULAR STRUCTURES: Heart normal in size. Normal vasculature. BONES: No acute findings. HARDWARE: Vascular access port. Clips in the upper abdomen. OTHER: No other significant finding. IMPRESSION: NO ACUTE RADIOGRAPHIC FINDING IN THE CHEST. TECHNICAL DOCUMENTATION: JOB ID: [id number] [employer]- All Rights Reserved
[2017-06-26 21:01] LABS: VENOUS BLOOD BASE EXCESS 11.4 mmol/L; VENOUS BLOOD HCO3 36.8 mmol/L (20-32); VENOUS BLOOD PCO2 49.9 mmHg (35-63); VENOUS BLOOD PH 7.49 (7.30-7.42)
[2017-06-26 21:16] LABS: HEMATOCRIT 27.5 % (36.0-47.0); HEMOGLOBIN 9.3 g/dL (12.0-15.5); MEAN CORPUSCULAR HEMOGLOBIN 32.5 pg (27.0-33.4); MEAN CORPUSCULAR VOLUME 96 fl (80-97); PLATELET COUNT 216 10^3/uL (150-450); RED BLOOD COUNT 2.87 10^6/uL (3.72-5.28); RED CELL DISTRIBUTION WIDTH 16.7 % (11.5-14.0); WHITE BLOOD COUNT 13.8 10^3/uL (4.0-10.5)
[2017-06-26 21:19] LABS: ALANINE AMINOTRANSFERASE 20 U/L (9-52); ALKALINE PHOSPHATASE 89 U/L (38-126); ANION GAP 10 (5-19); ASPARTATE AMINO TRANSFERASE 28 U/L (14-36); BILIRUBIN,DIRECT 0.4 mg/dL (0.0-0.4); BLOOD UREA NITROGEN 20 mg/dL (7-20); CALCIUM 8.6 mg/dL (8.4-10.2); CARBON DIOXIDE 35 mmol/L (22-30); CHLORIDE 94 mmol/L (98-107); GLUCOSE 90 mg/dL (75-110); SODIUM 139.3 mmol/L (137-145); TOTAL PROTEIN 5.9 g/dL (6.3-8.2)
[2017-06-26 21:24] LABS: POTASSIUM 2.6 mmol/L (3.6-5.0)
[2017-06-26 21:24] LABS: INTERNATIONAL RATION (INR) 0.99; PROTHROMBIN TIME 13.8 SEC (11.4-15.4)
[2017-06-26] MEDS ORDERED: POTASSIUM CHLORIDE 10 MEQ TABLET.SA PO ONE (21:28)
[2017-06-26] MEDS ORDERED: POTASSI CL 20 MEQ/50 ML RIDER 20 MEQ/50 ML RTUPB IV ONE (21:28)
--- NOTE | 2017-06-26 21:33 | ER Document Report ---
ED General - General Chief Complaint: General Weakness Stated Complaint: FEVER Time Seen by Provider: 06/26/17 19:37 Notes: Patient is a 71-year-old female who presents emergency department via EMS with a chief complaint of fever for the past 3 days and a cough for the past week. Admits to T-max of 103. States it was 102.8 at home so she took 1000 mg of her home Tylenol prior to calling EMS. She also states that she has been having a productive cough for the past week. She admits to feeling tired and with less energy. patient admits to past medical history significant for CLL that she follows with Dr. Barahona and history of GERD. Past medical history and review of the chart shows that she was recently admitted here back in March for right lower lobe pneumonia and then admitted in April for prerenal BENNIE. TRAVEL OUTSIDE OF THE [place] IN LAST 30 DAYS: No - Related Data Allergies/Adverse Reactions: No Known Allergies Allergy (Verified 04/19/17 15:46) Home Medications: Current Home Medications Fluconazole 200 mg/Ns RTU [Diflucan RTU 200 mg/Ns 100 ml Premix] 06/26/17 [ History] Omeprazole 20 mg PO 06/26/17 [History] Past Medical History - Social History Smoking Status: Former Smoker Family History: Reviewed & Not Pertinent Patient has suicidal ideation: No Patient has homicidal ideation: No - Past Medical History Cardiac Medical History: Reports: Hx Hypertension Pulmonary Medical History: Reports: Hx Bronchitis, Hx COPD, Hx Pneumonia Neurological Medical History: Denies: Hx Cerebrovascular Accident Renal/ Medical History: Denies: Hx Peritoneal Dialysis Malignancy Medical History: Reports: Hx Leukemia - chronic lymphocytic leukemia Musculoskeltal Medical History: Reports Hx Arthritis - osteoarthritis Psychiatric Medical History: Denies: Hx Depression Infectious Medical History: Reports: Hx MRSA Past Surgical History: Reports: Hx Abdominal Surgery - spleenectomy. Denies: Hx Bowel Surgery - Immunizations Hx Diphtheria, Pertussis, Tetanus Vaccination: Yes Hx Pneumococcal Vaccination: 08/18/11 Review of Systems - Review of Systems Constitutional: See HPI EENT: No symptoms reported Cardiovascular: No symptoms reported Respiratory: See HPI Gastrointestinal: No symptoms reported Genitourinary: No symptoms reported Musculoskeletal: No symptoms reported Neurological/Psychological: No symptoms reported -: Yes All other systems reviewed and negative Physical Exam - Vital signs Vitals: Temp 97.7 F 06/26/17 22:49 - Notes Notes: PHYSICAL EXAM GENERAL: Alert, interacts well. HEAD: Normocephalic, atraumatic. EYES: Pupils equal, round, and reactive to light. Extraocular movements intact. ENT: Oral mucosa dry, tongue midline. NECK: Full range of motion. Supple. Trachea midline. LUNGS: Clear to auscultation bilaterally, no wheezes, rales, or rhonchi. No respiratory distress. HEART: Regular rate and rhythm. No murmurs, gallops, or rubs. ABDOMEN: Soft, nondistended, nontender. No guarding, rebound, or rigidity.. Bowel sounds present in all 4 quadrants. EXTREMITIES: Moves all 4 extremities spontaneously. No edema, radial and dorsalis pedis pulses 2/4 bilaterally. No cyanosis. NEUROLOGICAL: Alert and oriented x4. Normal speech. PSYCH: Normal affect, normal mood. SKIN: Warm, dry, normal turgor. No rashes or lesions noted. Terrible parchment Course - Re-evaluation Re-evalutation: 06/27/17 00:27 admit for hypokalemia and pneumonia Patient is a 71-year-old female who is hemodynamically stable, no acute distress and afebrile. CBC with mild elevation leukocytes at 13.9. Chemistry with evidence of hypokalemia at 2.6 without EKG changes. Urine without evidence of UTI. Chest x-ray read as stable but given patient's presentation, fever and persistence of right lower lobe atelectasis versus infiltrate, will treat as pneumonia. patient initiated on Levaquin. Patient has been accepted by Dr. Tristan for observation given patient's past medical history and hypokalemia.. - Vital Signs Vital signs: Temp Pulse Resp BP Pulse Ox 99.0 F 93 06/27/17 01:58 06/27/17 01:58 - Laboratory Result Diagrams: 06/26/17 20:49 06/26/17 20:49 Laboratory results interpreted by me: 06/26/17 06/26/17 06/26/17 20:49 20:49 20:49 WBC 13.8 H RBC 2.87 L Hgb 9.3 L Hct 27.5 L RDW 16.7 H Band Neutrophils % 8 H Monocytes % (Manual) 19 H Metamyelocytes % 1 H Abs Monocytes (Manual) 2.6 H VBG pH 7.49 H VBG HCO3 36.8 H Potassium 2.6 L* Chloride 94 L Carbon Dioxide 35 H Creatinine 1.87 H Est GFR ( Amer) 32 L Est GFR (Non-Af Amer) 27 L Total Protein 5.9 L Albumin 3.0 L - Diagnostic Test Radiology reviewed: Image reviewed, Reports reviewed - EKG Interpretation by Me EKG shows normal: Sinus rhythm Rate: Normal Rhythm: NSR When compared to previous EKG there are: No significant change Discharge - Discharge Clinical Impression: Hypokalemia Pneumonia Qualifiers: Pneumonia type: due to unspecified organism Laterality: right Lung location: lower lobe of lung Qualified Code(s): J18.1 - Lobar pneumonia, unspecified organism Condition: Stable Disposition: ADMITTED OBSERVATION Admitting Provider: [facility] Unit Admitted: Medical Floor
[2017-06-26 21:38] LABS: ABSOLUTE LYMPHOCYTES# (MANUAL) 3.2 10^3/uL (0.5-4.7); ABSOLUTE MONOCYTES # (MANUAL) 2.6 10^3/uL (0.1-1.4); ABSOLUTE NEUTROPHILS# (MANUAL) 7.9 10^3/uL (1.7-8.2); BAND NEUTROPHILS % (MANUAL) 8 % (3-5); BASOPHILS % (MANUAL) 0 % (0-2); EOSINOPHILS % (MANUAL) 1 % (0-6); LYMPHOCYTES % (MANUAL) 23 % (13-45); METAMYELOCYTES % (MANUAL) 1 % (0); MONOCYTES % (MANUAL) 19 % (3-13); SEGMENTED NEUTROPHILS % (MAN) 48 % (42-78); TOTAL CELLS COUNTED 100
[2017-06-26 21:42] LABS: TOXIC GRANULATION SLIGHT
[2017-06-26 21:43] LABS: ANISOCYTOSIS 1+; OVALOCYTES SLIGHT; PLATELET COMMENT ADEQUATE; POIKILOCYTOSIS SLIGHT; ROULEAUX SLIGHT
[2017-06-26 23:32] LABS: APPEARANCE,URINE CLEAR; BILIRUBIN,URINE NEGATIVE (NEGATIVE); COLOR,URINE YELLOW; GLUCOSE, URINE NEGATIVE (NEGATIVE); KETONES,URINE NEGATIVE (NEGATIVE); LEUKOCYTE ESTERASE,URINE NEGATIVE (NEGATIVE); NITRITE,URINE NEGATIVE (NEGATIVE); PROTEIN,URINE NEGATIVE (NEGATIVE); URINE SPECIFIC GRAVITY 1.005; UROBILINOGEN,URINE NEGATIVE mg/dL (<2.0)
[2017-06-27] MEDS ORDERED: LEVOFLOXACIN 750 MG/D5W RTU 750 MG/150 ML RTUPB IV ONE (00:26)
[2017-06-27 03:02] LABS: A TYPE INFLUENZA AG NEGATIVE (NEGATIVE)
[2017-06-27 03:03] LABS: B INFLUENZA AG NEGATIVE (NEGATIVE)
[2017-06-27] MEDS: ACETAMINOPHEN 325 MG TABLET PO PRN ×3 (03:54→20:33)
--- NOTE | 2017-06-27 07:42 | EKG REPORT ---
SEVERITY:- NORMAL ECG - SINUS RHYTHM : Confirmed by: Ruiz Oconnor MD 27-Jun-2017 07:41:42
[2017-06-27 08:02] LABS: ANION GAP 9 (5-19); BLOOD UREA NITROGEN 23 mg/dL (7-20); CALCIUM 8.3 mg/dL (8.4-10.2); CARBON DIOXIDE 35 mmol/L (22-30); CHLORIDE 98 mmol/L (98-107); GLUCOSE 71 mg/dL (75-110); POTASSIUM 3.1 mmol/L (3.6-5.0); SODIUM 141.9 mmol/L (137-145)
[2017-06-27 08:03] LABS: HEMATOCRIT 27.1 % (36.0-47.0); HEMOGLOBIN 9.1 g/dL (12.0-15.5); MEAN CORPUSCULAR HEMOGLOBIN 32.6 pg (27.0-33.4); MEAN CORPUSCULAR HGB CONC 33.6 g/dL (32.0-36.0); MEAN CORPUSCULAR VOLUME 97 fl (80-97); PLATELET COUNT 198 10^3/uL (150-450); RED CELL DISTRIBUTION WIDTH 16.5 % (11.5-14.0); WHITE BLOOD COUNT 12.7 10^3/uL (4.0-10.5)
[2017-06-27 08:41] LABS: ABSOLUTE LYMPHOCYTES# (MANUAL) 2.5 10^3/uL (0.5-4.7); ABSOLUTE MONOCYTES # (MANUAL) 1.9 10^3/uL (0.1-1.4); ABSOLUTE NEUTROPHILS# (MANUAL) 7.9 10^3/uL (1.7-8.2); BASOPHILS % (MANUAL) 0 % (0-2); EOSINOPHILS % (MANUAL) 3 % (0-6); LYMPHOCYTES % (MANUAL) 20 % (13-45); METAMYELOCYTES % (MANUAL) 2 % (0); MONOCYTES % (MANUAL) 15 % (3-13); SEGMENTED NEUTROPHILS % (MAN) 47 % (42-78); TOTAL CELLS COUNTED 100
[2017-06-27 08:42] LABS: ANISOCYTOSIS 1+; BAND NEUTROPHILS % (MANUAL) 13 % (3-5); OVALOCYTES SLIGHT; PLATELET COMMENT ADEQUATE; POIKILOCYTOSIS SLIGHT; POLYCHROMASIA SLIGHT; TARGET CELLS SLIGHT; TOXIC GRANULATION 1+
[2017-06-27] MEDS: POTASSI CL 20 MEQ/1/2NS 1L 20 MEQ/1,000 ML RTUINJ IV PRN (10:02)
[2017-06-27] MEDS: METOPROLOL SUCCINATE 50 MG TAB.SR.24H PO SCH (10:08)
[2017-06-27 13:17] LABS: PATH REVIEW PATHOLOGIST REVIEWED
--- NOTE | 2017-06-27 17:16 | RADIOLOGY REPORT (SQ) ---
EXAM DESCRIPTION: CT CHEST WITHOUT COMPLETED DATE/TIME: 06/27/2017 5:00 pm REASON FOR STUDY: pneumonia J18.9 PNEUMONIA, UNSPECIFIED ORGANISM COMPARISON: None. TECHNIQUE: CT scan performed of the chest without intravenous contrast. Images reviewed with lung, soft tissue and bone windows. Reconstructed coronal and sagittal MPR images reviewed. All images st ored on PACS. All CT scanners at this facility use dose modulation, iterative reconstruction, and/or weight based d osing when appropriate to reduce radiation dose to as low as reasonably achievable (ALARA). [facility]: Dose Right [facility]: CareDose [facility]: Dose Right [facility]: Teradose 4D [facility]: Smart mohchi RADIATION DOSE: CT Rad equipment meets quality standard of care and radiation dose reduction techniq ues were employed. CTDIvol: 5.0 mGy. DLP: 167 mGy-cm. mGy. LIMITATIONS: No technical limitations. FINDINGS: LUNGS AND PLEURA: Infrahilar right lower lobe airspace disease compatible with pneumonia. Stable atelectasis/scarring within the right middle lobe and lingula. Lungs otherwise clear. HILAR AND MEDIASTINAL STRUCTURES: No identified masses or abnormal nodes. No obvious aneurysm. HEART AND VASCULAR STRUCTURES: Stable multichamber cardiomegaly with with left atrial enlargement. E nlarged pulmonary artery suggestive of pulmonary artery hypertension. No aneurysm. No pericardial e ffusion. UPPER ABDOMEN: No significant findings. Limited exam. THYROID AND OTHER SOFT TISSUES: No masses. No adenopathy. BONES: No significant finding. HARDWARE: Stable position right-sided port. OTHER: No other significant findings. IMPRESSION: INFRAHILAR RIGHT LOWER LOBE AIRSPACE DISEASE COMPATIBLE WITH PNEUMONIA. ENLARGED PULMONARY ARTERY SUGGESTIVE OF PULMONARY HYPERTENSION. ADDITIONAL CHRONIC CHANGES ABOVE. TECHNICAL DOCUMENTATION: JOB ID: [id number] Quality ID # [id number]: Final reports with documentation of one or more dose reduction techniques (e.g., Au tomated exposure control, adjustment of the mA and/or kV according to patient size, use of iterative reconstruction technique) 2010 [employer]- All Rights Reserved
--- NOTE | 2017-06-27 20:27 | PDOC H&P ---
History of Present Illness Admission Date/PCP: 06/27/17 18:33 ERUM HENAO MD History of Present Illness: JANET ABBOTT is a 71 year old female, Patient came to the emergency room last night for evaluation of cough, shortness of breath. She has history of chronic lymphocytic leukemia on active chemotherapy. In the emergency room she was evaluated for symptoms the initial chest x-ray that was done did not show any acute infiltrate to suggest pneumonia. Patient is well-known to me usually when she was diagnosed with pneumonia she almost always require a CT chest to diagnose pneumonia in this patient with that background I requested for CT chest without contrast and it showed as suspected infrahilar right lower lobe airspace disease compatible with pneumonia, there is stable atelectasis/scaring within the right middle lobe and lingula the lung is otherwise clear.The CAT scan also showed stable multichamber cardiomegaly with left atrial enlargement, and large pulmonary artery suggestive of pulmonary arterial hypertension. Patient was admitted last year for pneumonia at that time she had MRSA pneumonia. 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 Past Medical History Cardiac Medical History: Reports: Hypertension Pulmonary Medical History: Reports: Bronchitis, Chronic Obstructive Pulmonary Disease (COPD), Pneumonia Malignancy Medical History: Reports: Leukemia - chronic lymphocytic leukemia Musculoskeltal Medical History: Reports: Arthritis - osteoarthritis Infectious Medical History: Reports: Methicillin-Resistant Staph Aureus Social History Smoking Status: Former Smoker Frequency of Alcohol Use: None Hx Recreational Drug Use: No Drugs: None Hx Prescription Drug Abuse: No Family History Family History: Reviewed & Not Pertinent Parental Family History Reviewed: Yes Children Family History Reviewed: Yes Sibling(s) Family History Reviewed.: Yes Medication/Allergy Home Medications: Metoprolol Succinate [Toprol Xl 50 mg Tab.sr] 100 mg PO DAILY 06/27/17 Montelukast Sodium [Singulair 10 mg Tablet] 10 mg PO QHS 06/27/17 Omeprazole 20 mg PO DAILY 06/27/17 Allergies/Adverse Reactions: No Known Allergies Allergy (Verified 04/19/17 15:46) Review of Systems Constitutional: ABSENT: chills, fever(s), headache(s), weight gain, weight loss Eyes: ABSENT: visual disturbances Ears: ABSENT: hearing changes Cardiovascular: ABSENT: chest pain, dyspnea on exertion, edema, orthropnea, palpitations Respiratory: ABSENT: cough, hemoptysis Gastrointestinal: ABSENT: abdominal pain, constipation, diarrhea, hematemesis, hematochezia, nausea, vomiting Genitourinary: ABSENT: dysuria, hematuria Musculoskeletal: ABSENT: joint swelling Integumentary: ABSENT: rash, wounds Neurological: ABSENT: abnormal gait, abnormal speech, confusion, dizziness, focal weakness, syncope Psychiatric: ABSENT: anxiety, depression, homidical ideation, suicidal ideation Endocrine: ABSENT: cold intolerance, heat intolerance, menstrual abnormalities, polydipsia, polyuria Hematologic/Lymphatic: ABSENT: easy bleeding, easy bruising, lymphadenopathy Physical Exam Vital Signs: Temp Pulse Resp BP Pulse Ox 99.0 F 79 20 149/68 H 96 06/27/17 16:43 06/27/17 16:43 06/27/17 16:00 06/27/17 16:43 06/27/17 16:43 General appearance: PRESENT: mild distress Eye exam: PRESENT: PERRLA Respiratory exam: PRESENT: rhonchi Cardiovascular exam: PRESENT: +S1, +S2 GI/Abdominal exam: PRESENT: soft Neurological exam: PRESENT: alert Results Impressions: Chest X-Ray 06/26/17 19:48 IMPRESSION: NO ACUTE RADIOGRAPHIC FINDING IN THE CHEST. Chest CT 06/27/17 00:00 IMPRESSION: INFRAHILAR RIGHT LOWER LOBE AIRSPACE DISEASE COMPATIBLE WITH PNEUMONIA. ENLARGED PULMONARY ARTERY SUGGESTIVE OF PULMONARY HYPERTENSION. ADDITIONAL CHRONIC CHANGES ABOVE. Assessment & Plan - Diagnosis (1) Right lower lobe pneumonia Qualifiers: Pneumonia type: due to unspecified organism Qualified Code(s): J18.1 - Lobar pneumonia, unspecified organism Is this a current diagnosis for this admission?: Yes Plan: She has a history of MRSA pneumonia, VRE, she will be treated with antibiotic to cover MRSA, VRE, and also community-acquired pneumonia, Zyvox and Levaquin (2) Hypokalemia Is this a current diagnosis for this admission?: Yes (3) Acute kidney injury Is this a current diagnosis for this admission?: Yes Plan: This is most likely prerenal (4) Chronic lymphocytic leukemia Is this a current diagnosis for this admission?: Yes
[2017-06-27] MEDS ORDERED: METOPROLOL SUCCINATE 50 MG TAB.SR.24H PO SCH (20:30)
[2017-06-27] MEDS: MONTELUKAST SODIUM 10 MG TABLET PO SCH (21:54)
[2017-06-27] MEDS: LINEZOLID 300 ML IV SCH (22:00)
[2017-06-28] MEDS: POTASSI CL 20 MEQ/1/2NS 1L 20 MEQ/1,000 ML RTUINJ IV PRN ×2 (02:12→17:47)
[2017-06-28] MEDS: LANSOPRAZOLE 15 MG TAB.RAP.DR PO SCH (06:26)
[2017-06-28] MEDS: LINEZOLID 300 ML IV SCH ×2 (09:59→22:44)
[2017-06-28] MEDS: METOPROLOL SUCCINATE 50 MG TAB.SR.24H PO SCH (09:59)
[2017-06-28 18:12] LABS: HEMATOCRIT 26.5 % (36.0-47.0); HEMOGLOBIN 8.8 g/dL (12.0-15.5); MEAN CORPUSCULAR HEMOGLOBIN 32.4 pg (27.0-33.4); MEAN CORPUSCULAR HGB CONC 33.2 g/dL (32.0-36.0); MEAN CORPUSCULAR VOLUME 97 fl (80-97); PLATELET COUNT 187 10^3/uL (150-450); RED BLOOD COUNT 2.72 10^6/uL (3.72-5.28); RED CELL DISTRIBUTION WIDTH 16.2 % (11.5-14.0); WHITE BLOOD COUNT 13.8 10^3/uL (4.0-10.5)
[2017-06-28 18:30] LABS: ABSOLUTE LYMPHOCYTES# (MANUAL) 4.4 10^3/uL (0.5-4.7); ABSOLUTE MONOCYTES # (MANUAL) 2.8 10^3/uL (0.1-1.4); ABSOLUTE NEUTROPHILS# (MANUAL) 6.1 10^3/uL (1.7-8.2); BAND NEUTROPHILS % (MANUAL) 11 % (3-5); BASOPHILS % (MANUAL) 0 % (0-2); EOSINOPHILS % (MANUAL) 4 % (0-6); LYMPHOCYTES % (MANUAL) 32 % (13-45); METAMYELOCYTES % (MANUAL) 2 % (0); MONOCYTES % (MANUAL) 20 % (3-13); SEGMENTED NEUTROPHILS % (MAN) 31 % (42-78); TOTAL CELLS COUNTED 100
[2017-06-28 18:32] LABS: TOXIC GRANULATION SLIGHT
[2017-06-28 18:33] LABS: ANISOCYTOSIS 1+; POIKILOCYTOSIS SLIGHT; POLYCHROMASIA SLIGHT
[2017-06-28 18:34] LABS: OVALOCYTES SLIGHT; PLATELET COMMENT ADEQUATE; TARGET CELLS SLIGHT
[2017-06-28 18:48] LABS: ALANINE AMINOTRANSFERASE 20 U/L (9-52); ALBUMIN 2.8 g/dL (3.5-5.0); ALKALINE PHOSPHATASE 81 U/L (38-126); ANION GAP 11 (5-19); ASPARTATE AMINO TRANSFERASE 27 U/L (14-36); BILIRUBIN,DIRECT 0.5 mg/dL (0.0-0.4); BLOOD UREA NITROGEN 24 mg/dL (7-20); CALCIUM 8.3 mg/dL (8.4-10.2); CARBON DIOXIDE 29 mmol/L (22-30); CHLORIDE 99 mmol/L (98-107); GLUCOSE 81 mg/dL (75-110); POTASSIUM 3.6 mmol/L (3.6-5.0); SODIUM 138.6 mmol/L (137-145); TOTAL PROTEIN 5.3 g/dL (6.3-8.2)
[2017-06-28] MEDS ORDERED: LEVOFLOXACIN 750 MG TABLET PO SCH (22:00)
[2017-06-28] MEDS ORDERED: LEVOFLOXACIN 750 MG/D5W RTU 750 MG/150 ML RTUPB IV SCH (22:00)
--- NOTE | 2017-06-28 22:36 | PDOC PROGRESS REPORT ---
Subjective Progress Note for:: 06/28/17 Subjective:: Patient seen by the bedside, sputum culture is growing, gram-negative xi, gram positive cocci, She is empirically on Zyvox for MRSA on Levaquin for gram- negative organisms Reason For Visit: PNEUMONIA,HYPOKALEMIA,CLL Physical Exam Vital Signs: Temp Pulse Resp BP Pulse Ox 98.9 F 90 18 155/86 H 95 06/28/17 19:31 06/28/17 19:31 06/28/17 19:31 06/28/17 19:31 06/28/17 19:31 Intake & Output 06/27/17 06/28/17 06/29/17 06:59 06:59 06:59 Intake Total 1140 1477 Balance 1140 1477 General appearance: PRESENT: no acute distress, well-developed, well-nourished Head exam: PRESENT: atraumatic, normocephalic Eye exam: PRESENT: conjunctiva pink, EOMI, PERRLA Ear exam: PRESENT: normal external ear exam Mouth exam: PRESENT: moist, tongue midline Neck exam: PRESENT: full ROM Respiratory exam: PRESENT: rhonchi Cardiovascular exam: PRESENT: RRR, +S1, +S2 Vascular exam: PRESENT: normal capillary refill GI/Abdominal exam: PRESENT: normal bowel sounds, soft. ABSENT: distended, guarding, mass, organolmegaly, rebound, tenderness Rectal exam: PRESENT: deferred Neurological exam: PRESENT: alert, awake, oriented to person, oriented to place , oriented to time, oriented to situation, CN II-XII grossly intact. ABSENT: motor sensory deficit Psychiatric exam: PRESENT: appropriate affect, normal mood. ABSENT: homicidal ideation, suicidal ideation Skin exam: PRESENT: dry, intact, warm. ABSENT: cyanosis, rash Results Laboratory Results: 06/28/17 18:00 06/28/17 18:00 06/28/17 06/28/17 18:00 18:00 WBC 13.8 H RBC 2.72 L Hgb 8.8 L Hct 26.5 L MCV 97 MCH 32.4 MCHC 33.2 RDW 16.2 H Plt Count 187 Seg Neutrophils % Not Reportable Lymphocytes % Not Reportable Monocytes % Not Reportable Eosinophils % Not Reportable Basophils % Not Reportable Absolute Neutrophils Not Reportable Absolute Lymphocytes Not Reportable Absolute Monocytes Not Reportable Absolute Eosinophils Not Reportable Absolute Basophils Not Reportable Sodium 138.6 Potassium 3.6 Chloride 99 Carbon Dioxide 29 Anion Gap 11 BUN 24 H Creatinine 1.59 H Est GFR ( Amer) 39 L Est GFR (Non-Af Amer) 32 L Glucose 81 Calcium 8.3 L Total Bilirubin 1.0 AST 27 ALT 20 Alkaline Phosphatase 81 Total Protein 5.3 L Albumin 2.8 L Impressions: Chest X-Ray 06/26/17 19:48 IMPRESSION: NO ACUTE RADIOGRAPHIC FINDING IN THE CHEST. Chest CT 06/27/17 00:00 IMPRESSION: INFRAHILAR RIGHT LOWER LOBE AIRSPACE DISEASE COMPATIBLE WITH PNEUMONIA. ENLARGED PULMONARY ARTERY SUGGESTIVE OF PULMONARY HYPERTENSION. ADDITIONAL CHRONIC CHANGES ABOVE. Assessment & Plan - Diagnosis (1) Right lower lobe pneumonia Qualifiers: Pneumonia type: due to unspecified organism Qualified Code(s): J18.1 - Lobar pneumonia, unspecified organism Is this a current diagnosis for this admission?: Yes (2) Hypokalemia Is this a current diagnosis for this admission?: Yes (3) Acute kidney injury Is this a current diagnosis for this admission?: Yes (4) Chronic lymphocytic leukemia Is this a current diagnosis for this admission?: Yes - Plan Summary Plan Summary: Continue IV antibiotic
[2017-06-28] MEDS: MONTELUKAST SODIUM 10 MG TABLET PO SCH (22:44)
[2017-06-29] MEDS: LANSOPRAZOLE 15 MG TAB.RAP.DR PO SCH (05:45)
[2017-06-29] MEDS: METOPROLOL SUCCINATE 50 MG TAB.SR.24H PO SCH (09:35)
[2017-06-29] MEDS: LINEZOLID 300 ML IV SCH (09:36)
[2017-06-29] MEDS: POTASSI CL 20 MEQ/1/2NS 1L 20 MEQ/1,000 ML RTUINJ IV PRN (14:46)
[2017-06-29] MEDS: ACETAMINOPHEN 325 MG TABLET PO PRN (20:34)
[2017-06-29] MEDS: LINEZOLID 600 MG TABLET PO SCH (22:46)
[2017-06-29] MEDS: MONTELUKAST SODIUM 10 MG TABLET PO SCH (22:47)
--- NOTE | 2017-06-29 23:52 | PDOC PROGRESS REPORT ---
Subjective Progress Note for:: 06/29/17 Subjective:: Patient was seen by the bedside sputum culture grew 4+ MRSA, 2+ proteus Reason For Visit: PNEUMONIA,HYPOKALEMIA,CLL Physical Exam Vital Signs: Temp Pulse Resp BP Pulse Ox 97.9 F 92 15 149/72 H 96 06/29/17 19:33 06/29/17 19:33 06/29/17 19:33 06/29/17 19:33 06/29/17 19:33 Intake & Output 06/28/17 06/29/17 06/30/17 06:59 06:59 06:59 Intake Total 1140 1999 2841 Output Total 800 Balance 1140 1199 2841 Weight 54.5 kg General appearance: PRESENT: mild distress Head exam: PRESENT: atraumatic, normocephalic Eye exam: ABSENT: scleral icterus Ear exam: PRESENT: normal external ear exam Mouth exam: PRESENT: moist, tongue midline Neck exam: PRESENT: full ROM Respiratory exam: PRESENT: rhonchi Cardiovascular exam: PRESENT: RRR, +S1, +S2 Vascular exam: PRESENT: normal capillary refill GI/Abdominal exam: PRESENT: normal bowel sounds, soft Rectal exam: PRESENT: deferred Neurological exam: PRESENT: alert, CN II-XII grossly intact Psychiatric exam: PRESENT: appropriate affect, normal mood Skin exam: PRESENT: dry, intact, warm Results Laboratory Results: 06/28/17 18:00 06/28/17 18:00 Impressions: Chest X-Ray 06/26/17 19:48 IMPRESSION: NO ACUTE RADIOGRAPHIC FINDING IN THE CHEST. Chest CT 06/27/17 00:00 IMPRESSION: INFRAHILAR RIGHT LOWER LOBE AIRSPACE DISEASE COMPATIBLE WITH PNEUMONIA. ENLARGED PULMONARY ARTERY SUGGESTIVE OF PULMONARY HYPERTENSION. ADDITIONAL CHRONIC CHANGES ABOVE. Assessment & Plan - Diagnosis (1) Right lower lobe pneumonia Qualifiers: Pneumonia type: due to unspecified organism Qualified Code(s): J18.1 - Lobar pneumonia, unspecified organism Is this a current diagnosis for this admission?: Yes (2) Hypokalemia Is this a current diagnosis for this admission?: Yes (3) Acute kidney injury Is this a current diagnosis for this admission?: Yes (4) Chronic lymphocytic leukemia Is this a current diagnosis for this admission?: Yes (5) MRSA pneumonia Qualifiers: Laterality: right Lung location: lower lobe of lung Qualified Code(s): J15.212 - Pneumonia due to Methicillin resistant Staphylococcus aureus Is this a current diagnosis for this admission?: Yes Plan: Continue Zyvox (6) Proteus mirabilis pneumonia Is this a current diagnosis for this admission?: Yes Plan: Continue levaquine
[2017-06-30] MEDS: POTASSI CL 20 MEQ/1/2NS 1L 20 MEQ/1,000 ML RTUINJ IV PRN (05:53)
[2017-06-30] MEDS: LANSOPRAZOLE 15 MG TAB.RAP.DR PO SCH (05:53)
[2017-06-30] MEDS: METOPROLOL SUCCINATE 50 MG TAB.SR.24H PO SCH (11:23)
[2017-06-30] MEDS: LINEZOLID 600 MG TABLET PO SCH ×2 (11:24→22:44)
[2017-06-30] MEDS: ACETAMINOPHEN 325 MG TABLET PO PRN ×2 (11:39→22:46)
--- NOTE | 2017-06-30 15:41 | PDOC PROGRESS REPORT ---
Subjective Progress Note for:: 06/30/17 Subjective:: Patient was admitted for the management of MRSA pneumonia, seen by the bedside Reason For Visit: PNEUMONIA,HYPOKALEMIA,CLL Physical Exam Vital Signs: Temp Pulse Resp BP Pulse Ox 98.5 F 87 18 145/70 H 99 06/30/17 07:54 06/30/17 14:00 06/30/17 07:54 06/30/17 07:54 06/30/17 07:54 Intake & Output 06/29/17 06/30/17 07/01/17 06:59 06:59 06:59 Intake Total 1998 4356 Output Total 800 3000 Balance 1199 1356 Weight 54.5 kg General appearance: PRESENT: no acute distress Eye exam: PRESENT: PERRLA Mouth exam: PRESENT: moist Neck exam: PRESENT: full ROM Respiratory exam: PRESENT: rhonchi Cardiovascular exam: PRESENT: RRR, +S1, +S2 GI/Abdominal exam: PRESENT: soft Rectal exam: PRESENT: deferred Neurological exam: PRESENT: alert, awake, oriented to person, oriented to place , oriented to time, oriented to situation, CN II-XII grossly intact Psychiatric exam: PRESENT: appropriate affect, normal mood Skin exam: PRESENT: dry, intact, warm Results Laboratory Results: 06/28/17 18:00 06/28/17 18:00 Impressions: Chest X-Ray 06/26/17 19:48 IMPRESSION: NO ACUTE RADIOGRAPHIC FINDING IN THE CHEST. Chest CT 06/27/17 00:00 IMPRESSION: INFRAHILAR RIGHT LOWER LOBE AIRSPACE DISEASE COMPATIBLE WITH PNEUMONIA. ENLARGED PULMONARY ARTERY SUGGESTIVE OF PULMONARY HYPERTENSION. ADDITIONAL CHRONIC CHANGES ABOVE. Assessment & Plan - Diagnosis (1) Right lower lobe pneumonia Qualifiers: Pneumonia type: due to unspecified organism Qualified Code(s): J18.1 - Lobar pneumonia, unspecified organism Is this a current diagnosis for this admission?: Yes (2) Hypokalemia Is this a current diagnosis for this admission?: Yes (3) Acute kidney injury Is this a current diagnosis for this admission?: Yes (4) Chronic lymphocytic leukemia Is this a current diagnosis for this admission?: Yes (5) MRSA pneumonia Qualifiers: Laterality: right Lung location: lower lobe of lung Qualified Code(s): J15.212 - Pneumonia due to Methicillin resistant Staphylococcus aureus Is this a current diagnosis for this admission?: Yes Plan: She will continue intravenous Zyvox (6) Proteus mirabilis pneumonia Is this a current diagnosis for this admission?: Yes Plan: She will continue p.o. Levaquin
[2017-06-30] MEDS: LACTOBACILLUS ACIDOPHILUS 250 MG TAB PO SCH (22:44)
[2017-06-30] MEDS: MONTELUKAST SODIUM 10 MG TABLET PO SCH (22:45)
[2017-06-30] MEDS: GUAIFENESIN 600 MG TABLET.SA PO SCH (22:45)
[2017-07-01] MEDS: POTASSI CL 20 MEQ/1/2NS 1L 20 MEQ/1,000 ML RTUINJ IV PRN ×2 (04:26→19:58)
[2017-07-01] MEDS: LANSOPRAZOLE 15 MG TAB.RAP.DR PO SCH (06:16)
[2017-07-01] MEDS: LINEZOLID 600 MG TABLET PO SCH ×2 (09:38→22:42)
[2017-07-01] MEDS: LACTOBACILLUS ACIDOPHILUS 250 MG TAB PO SCH ×2 (09:39→22:42)
[2017-07-01] MEDS: METOPROLOL SUCCINATE 50 MG TAB.SR.24H PO SCH (09:39)
[2017-07-01] MEDS: GUAIFENESIN 600 MG TABLET.SA PO SCH ×2 (09:39→22:42)
[2017-07-01] MEDS ORDERED: LEVOFLOXACIN 750 MG TABLET PO ONE (10:30)
[2017-07-01] MEDS: LEVOFLOXACIN 750 MG TABLET PO SCH (10:54)
[2017-07-01 16:24] LABS: HEMATOCRIT 24.6 % (36.0-47.0); HEMOGLOBIN 8.4 g/dL (12.0-15.5); MEAN CORPUSCULAR HEMOGLOBIN 32.9 pg (27.0-33.4); MEAN CORPUSCULAR HGB CONC 34.3 g/dL (32.0-36.0); MEAN CORPUSCULAR VOLUME 96 fl (80-97); PLATELET COUNT 196 10^3/uL (150-450); RED BLOOD COUNT 2.55 10^6/uL (3.72-5.28); RED CELL DISTRIBUTION WIDTH 16.4 % (11.5-14.0); WHITE BLOOD COUNT 7.4 10^3/uL (4.0-10.5)
[2017-07-01 16:39] LABS: ALANINE AMINOTRANSFERASE 23 U/L (9-52); ALBUMIN 2.7 g/dL (3.5-5.0); ALKALINE PHOSPHATASE 66 U/L (38-126); ANION GAP 8 (5-19); ASPARTATE AMINO TRANSFERASE 21 U/L (14-36); BILIRUBIN,DIRECT 0.3 mg/dL (0.0-0.4); BILIRUBIN,TOTAL 0.5 mg/dL (0.2-1.3); BLOOD UREA NITROGEN 16 mg/dL (7-20); CALCIUM 8.5 mg/dL (8.4-10.2); CARBON DIOXIDE 29 mmol/L (22-30); CHLORIDE 101 mmol/L (98-107); GLUCOSE 84 mg/dL (75-110); POTASSIUM 3.4 mmol/L (3.6-5.0); SODIUM 138.3 mmol/L (137-145); TOTAL PROTEIN 5.2 g/dL (6.3-8.2)
[2017-07-01 16:44] LABS: ABSOLUTE LYMPHOCYTES# (MANUAL) 2.2 10^3/uL (0.5-4.7); ABSOLUTE MONOCYTES # (MANUAL) 0.8 10^3/uL (0.1-1.4); ABSOLUTE NEUTROPHILS# (MANUAL) 4.3 10^3/uL (1.7-8.2); BAND NEUTROPHILS % (MANUAL) 5 % (3-5); BASOPHILS % (MANUAL) 0 % (0-2); EOSINOPHILS % (MANUAL) 1 % (0-6); LYMPHOCYTES % (MANUAL) 22 % (13-45); MONOCYTES % (MANUAL) 11 % (3-13); SEGMENTED NEUTROPHILS % (MAN) 53 % (42-78); TOTAL CELLS COUNTED 100
[2017-07-01 16:45] LABS: HYPOCHROMASIA 1+
[2017-07-01 16:46] LABS: ANISOCYTOSIS 1+; PLATELET COMMENT ADEQUATE; ROULEAUX SLIGHT
--- NOTE | 2017-07-01 17:34 | PDOC PROGRESS REPORT ---
Subjective Progress Note for:: 07/01/17 Subjective:: Patient was seen by the bedside admitted for MRSA pneumonia Reason For Visit: PNEUMONIA,HYPOKALEMIA,CLL Physical Exam Vital Signs: Temp Pulse Resp BP Pulse Ox 98.4 F 75 17 147/66 H 98 07/01/17 15:44 07/01/17 15:44 07/01/17 15:44 07/01/17 15:44 07/01/17 15:44 Intake & Output 06/30/17 07/01/17 07/02/17 06:59 06:59 06:59 Intake Total 4356 3495 462 Output Total 3000 1000 Balance 1356 3495 -538 Head exam: PRESENT: atraumatic, normocephalic Eye exam: PRESENT: conjunctiva pink, EOMI, PERRLA Ear exam: PRESENT: normal external ear exam Mouth exam: PRESENT: moist, tongue midline Neck exam: PRESENT: full ROM Respiratory exam: PRESENT: clear to auscultation sendy Cardiovascular exam: PRESENT: RRR, +S1, +S2 Vascular exam: PRESENT: normal capillary refill GI/Abdominal exam: PRESENT: normal bowel sounds, soft Rectal exam: PRESENT: deferred Neurological exam: PRESENT: alert Psychiatric exam: PRESENT: appropriate affect, normal mood Skin exam: PRESENT: dry, intact, warm Results Laboratory Results: 07/01/17 16:10 07/01/17 16:10 07/01/17 07/01/17 16:10 16:10 WBC 7.4 RBC 2.55 L Hgb 8.4 L Hct 24.6 L MCV 96 MCH 32.9 MCHC 34.3 RDW 16.4 H Plt Count 196 Seg Neutrophils % Not Reportable Lymphocytes % Not Reportable Monocytes % Not Reportable Eosinophils % Not Reportable Basophils % Not Reportable Absolute Neutrophils Not Reportable Absolute Lymphocytes Not Reportable Absolute Monocytes Not Reportable Absolute Eosinophils Not Reportable Absolute Basophils Not Reportable Sodium 138.3 Potassium 3.4 L Chloride 101 Carbon Dioxide 29 Anion Gap 8 BUN 16 Creatinine 1.62 H Est GFR ( Amer) 38 L Est GFR (Non-Af Amer) 32 L Glucose 84 Calcium 8.5 Total Bilirubin 0.5 AST 21 ALT 23 Alkaline Phosphatase 66 Total Protein 5.2 L Albumin 2.7 L Impressions: Chest X-Ray 06/26/17 19:48 IMPRESSION: NO ACUTE RADIOGRAPHIC FINDING IN THE CHEST. Chest CT 06/27/17 00:00 IMPRESSION: INFRAHILAR RIGHT LOWER LOBE AIRSPACE DISEASE COMPATIBLE WITH PNEUMONIA. ENLARGED PULMONARY ARTERY SUGGESTIVE OF PULMONARY HYPERTENSION. ADDITIONAL CHRONIC CHANGES ABOVE. Assessment & Plan - Diagnosis (1) Right lower lobe pneumonia Qualifiers: Pneumonia type: due to unspecified organism Qualified Code(s): J18.1 - Lobar pneumonia, unspecified organism Is this a current diagnosis for this admission?: Yes (2) Hypokalemia Is this a current diagnosis for this admission?: Yes (3) Acute kidney injury Is this a current diagnosis for this admission?: Yes (4) Chronic lymphocytic leukemia Is this a current diagnosis for this admission?: Yes (5) MRSA pneumonia Qualifiers: Laterality: right Lung location: lower lobe of lung Qualified Code(s): J15.212 - Pneumonia due to Methicillin resistant Staphylococcus aureus Is this a current diagnosis for this admission?: Yes (6) Proteus mirabilis pneumonia Is this a current diagnosis for this admission?: Yes - Plan Summary Plan Summary: Continue treatment
[2017-07-01] MEDS: ACETAMINOPHEN 325 MG TABLET PO PRN (19:03)
[2017-07-01] MEDS: MONTELUKAST SODIUM 10 MG TABLET PO SCH (22:42)
[2017-07-02] MEDS: LANSOPRAZOLE 15 MG TAB.RAP.DR PO SCH (05:50)
[2017-07-02 07:07] LABS: HEMATOCRIT 25.1 % (36.0-47.0); HEMOGLOBIN 8.6 g/dL (12.0-15.5); MEAN CORPUSCULAR HGB CONC 34.2 g/dL (32.0-36.0); MEAN CORPUSCULAR VOLUME 97 fl (80-97); PLATELET COUNT 191 10^3/uL (150-450); RED CELL DISTRIBUTION WIDTH 16.3 % (11.5-14.0); WHITE BLOOD COUNT 7.3 10^3/uL (4.0-10.5)
[2017-07-02 07:21] LABS: ALANINE AMINOTRANSFERASE 19 U/L (9-52); ALBUMIN 2.6 g/dL (3.5-5.0); ALKALINE PHOSPHATASE 69 U/L (38-126); ANION GAP 10 (5-19); ASPARTATE AMINO TRANSFERASE 20 U/L (14-36); BILIRUBIN,DIRECT 0.3 mg/dL (0.0-0.4); BILIRUBIN,TOTAL 0.6 mg/dL (0.2-1.3); BLOOD UREA NITROGEN 15 mg/dL (7-20); CALCIUM 8.6 mg/dL (8.4-10.2); CARBON DIOXIDE 29 mmol/L (22-30); CHLORIDE 103 mmol/L (98-107); GLUCOSE 79 mg/dL (75-110); POTASSIUM 3.6 mmol/L (3.6-5.0); SODIUM 142.4 mmol/L (137-145); TOTAL PROTEIN 5.1 g/dL (6.3-8.2)
[2017-07-02 07:53] LABS: ABSOLUTE LYMPHOCYTES# (MANUAL) 2.8 10^3/uL (0.5-4.7); ABSOLUTE MONOCYTES # (MANUAL) 0.6 10^3/uL (0.1-1.4); ABSOLUTE NEUTROPHILS# (MANUAL) 3.5 10^3/uL (1.7-8.2); BAND NEUTROPHILS % (MANUAL) 6 % (3-5); BASOPHILS % (MANUAL) 0 % (0-2); EOSINOPHILS % (MANUAL) 5 % (0-6); LYMPHOCYTES % (MANUAL) 38 % (13-45); METAMYELOCYTES % (MANUAL) 1 % (0); MONOCYTES % (MANUAL) 8 % (3-13); SEGMENTED NEUTROPHILS % (MAN) 41 % (42-78); TOTAL CELLS COUNTED 100
[2017-07-02 07:54] LABS: ANISOCYTOSIS 1+; PLATELET COMMENT ADEQUATE
[2017-07-02] MEDS: METOPROLOL SUCCINATE 50 MG TAB.SR.24H PO SCH (09:00)
[2017-07-02] MEDS: LINEZOLID 600 MG TABLET PO SCH ×2 (09:00→22:06)
[2017-07-02] MEDS: GUAIFENESIN 600 MG TABLET.SA PO SCH ×2 (09:01→22:07)
[2017-07-02] MEDS: LACTOBACILLUS ACIDOPHILUS 250 MG TAB PO SCH ×2 (09:02→22:07)
[2017-07-02] MEDS: POTASSI CL 20 MEQ/1/2NS 1L 20 MEQ/1,000 ML RTUINJ IV PRN (12:59)
--- NOTE | 2017-07-02 21:45 | PDOC PROGRESS REPORT ---
Subjective Progress Note for:: 07/02/17 Subjective:: Patient seen by the bedside she continues to improve Reason For Visit: PNEUMONIA,HYPOKALEMIA,CLL Physical Exam Vital Signs: Temp Pulse Resp BP Pulse Ox 98.5 F 80 20 146/63 H 98 07/02/17 20:12 07/02/17 20:12 07/02/17 20:12 07/02/17 20:12 07/02/17 20:12 Intake & Output 07/01/17 07/02/17 07/03/17 06:59 06:59 06:59 Intake Total 3495 3186 1770 Output Total 2500 1 Balance 3495 686 1769 Weight 54.8 kg General appearance: PRESENT: no acute distress Eye exam: PRESENT: PERRLA Respiratory exam: PRESENT: clear to auscultation sendy Cardiovascular exam: PRESENT: +S1, +S2 GI/Abdominal exam: PRESENT: soft Neurological exam: PRESENT: alert Results Laboratory Results: 07/02/17 06:25 07/02/17 06:25 07/02/17 07/02/17 06:25 06:25 WBC 7.3 RBC 2.60 L Hgb 8.6 L Hct 25.1 L MCV 97 MCH 33.0 MCHC 34.2 RDW 16.3 H Plt Count 191 Seg Neutrophils % Not Reportable Lymphocytes % Not Reportable Monocytes % Not Reportable Eosinophils % Not Reportable Basophils % Not Reportable Absolute Neutrophils Not Reportable Absolute Lymphocytes Not Reportable Absolute Monocytes Not Reportable Absolute Eosinophils Not Reportable Absolute Basophils Not Reportable Sodium 142.4 Potassium 3.6 Chloride 103 Carbon Dioxide 29 Anion Gap 10 BUN 15 Creatinine 1.71 H Est GFR ( Amer) 36 L Est GFR (Non-Af Amer) 30 L Glucose 79 Calcium 8.6 Total Bilirubin 0.6 AST 20 ALT 19 Alkaline Phosphatase 69 Total Protein 5.1 L Albumin 2.6 L Impressions: Chest X-Ray 06/26/17 19:48 IMPRESSION: NO ACUTE RADIOGRAPHIC FINDING IN THE CHEST. Chest CT 06/27/17 00:00 IMPRESSION: INFRAHILAR RIGHT LOWER LOBE AIRSPACE DISEASE COMPATIBLE WITH PNEUMONIA. ENLARGED PULMONARY ARTERY SUGGESTIVE OF PULMONARY HYPERTENSION. ADDITIONAL CHRONIC CHANGES ABOVE. Assessment & Plan - Diagnosis (1) Right lower lobe pneumonia Qualifiers: Pneumonia type: due to unspecified organism Qualified Code(s): J18.1 - Lobar pneumonia, unspecified organism Is this a current diagnosis for this admission?: Yes (2) Hypokalemia Is this a current diagnosis for this admission?: Yes (3) Acute kidney injury Is this a current diagnosis for this admission?: Yes (4) Chronic lymphocytic leukemia Is this a current diagnosis for this admission?: Yes (5) MRSA pneumonia Qualifiers: Laterality: right Lung location: lower lobe of lung Qualified Code(s): J15.212 - Pneumonia due to Methicillin resistant Staphylococcus aureus Is this a current diagnosis for this admission?: Yes (6) Proteus mirabilis pneumonia Is this a current diagnosis for this admission?: Yes
[2017-07-02] MEDS: MONTELUKAST SODIUM 10 MG TABLET PO SCH (22:06)
[2017-07-02] MEDS: ACETAMINOPHEN 325 MG TABLET PO PRN (22:08)
[2017-07-03] MEDS: LANSOPRAZOLE 15 MG TAB.RAP.DR PO SCH (06:29)
[2017-07-03] MEDS: LACTOBACILLUS ACIDOPHILUS 250 MG TAB PO SCH ×2 (09:59→22:15)
[2017-07-03] MEDS: METOPROLOL SUCCINATE 50 MG TAB.SR.24H PO SCH (10:00)
[2017-07-03] MEDS: LEVOFLOXACIN 750 MG TABLET PO SCH (10:00)
[2017-07-03] MEDS: LINEZOLID 600 MG TABLET PO SCH ×2 (10:02→22:15)
[2017-07-03] MEDS: GUAIFENESIN 600 MG TABLET.SA PO SCH ×2 (10:02→22:15)
[2017-07-03 16:19] LABS: ANION GAP 8 (5-19); BLOOD UREA NITROGEN 15 mg/dL (7-20); CALCIUM 8.5 mg/dL (8.4-10.2); CARBON DIOXIDE 30 mmol/L (22-30); CHLORIDE 101 mmol/L (98-107); GLUCOSE 81 mg/dL (75-110); POTASSIUM 3.6 mmol/L (3.6-5.0); SODIUM 138.5 mmol/L (137-145)
[2017-07-03] MEDS: MONTELUKAST SODIUM 10 MG TABLET PO SCH (22:15)
--- NOTE | 2017-07-03 22:33 | PDOC DISCHARGE SUMMARY ---
General - Admit/Disc Date/PCP Admission Date/Primary Care Provider: 06/27/17 18:33 ERUM HENAO MD Discharge Date: 07/03/17 - Discharge Diagnosis (1) Right lower lobe pneumonia Is this a current diagnosis for this admission?: Yes (2) Hypokalemia Is this a current diagnosis for this admission?: Yes (3) Acute kidney injury Is this a current diagnosis for this admission?: Yes (4) Chronic lymphocytic leukemia Is this a current diagnosis for this admission?: Yes (5) MRSA pneumonia Is this a current diagnosis for this admission?: Yes (6) Proteus mirabilis pneumonia Is this a current diagnosis for this admission?: Yes - Additional Information Prescriptions: Levofloxacin [Levaquin 750 mg Tablet] 750 mg PO Q2D@1000 #15 tablet Linezolid [Zyvox 600 mg Tablet] 600 mg PO Q12 #60 tablet Home Medications: Metoprolol Succinate [Toprol Xl 50 mg Tab.sr] 100 mg PO DAILY 06/27/17 Montelukast Sodium [Singulair 10 mg Tablet] 10 mg PO QHS 06/27/17 Omeprazole 20 mg PO DAILY 06/27/17 Levofloxacin [Levaquin 750 mg Tablet] 750 mg PO Q2D@1000 #15 tablet 07/03/17 Linezolid [Zyvox 600 mg Tablet] 600 mg PO Q12 #60 tablet 07/03/17 History of Present Illness History of Present Illness: JANET ABBOTT is a 71 year old female, Patient came to the emergency room last night for evaluation of cough, shortness of breath. She has history of chronic lymphocytic leukemia on active chemotherapy. In the emergency room she was evaluated for symptoms the initial chest x-ray that was done did not show any acute infiltrate to suggest pneumonia. Patient is well-known to me usually when she was diagnosed with pneumonia she almost always require a CT chest to diagnose pneumonia in this patient with that background I requested for CT chest without contrast and it showed as suspected infrahilar right lower lobe airspace disease compatible with pneumonia, there is stable atelectasis/scaring within the right middle lobe and lingula the lung is otherwise clear.The CAT scan also showed stable multichamber cardiomegaly with left atrial enlargement, and large pulmonary artery suggestive of pulmonary arterial hypertension. Patient was admitted last year for pneumonia at that time she had MRSA pneumonia. 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 Hospital Course Hospital Course: Patient was admitted for the management of MRSA and Proteus pneumonia she was treated with IV Zyvox and Levaquin. On admission she had leukocytosis with acute kidney injury. The sputum culture grew MRSA and Proteus. On admission she was empirically started on intravenous Zyvox and Levaquin before culture results was received because she has a history of MRSA pneumonia in the past. She also had hypokalemia that was corrected, she has a history of chronic lymphocytic leukemia on active chemotherapy., Physical Exam Vital Signs: Temp Pulse Resp BP Pulse Ox 98.0 F 86 16 138/81 H 100 07/03/17 14:33 07/03/17 14:33 07/03/17 14:33 07/03/17 14:33 07/03/17 14:33 Intake & Output 07/02/17 07/03/17 07/04/17 06:59 06:59 06:59 Intake Total 3186 3230 750 Output Total 2500 1902 Balance 686 1328 750 Weight 54.8 kg General appearance: PRESENT: no acute distress, well-developed, well-nourished Head exam: PRESENT: atraumatic, normocephalic Eye exam: PRESENT: conjunctiva pink, EOMI, PERRLA Ear exam: PRESENT: normal external ear exam Mouth exam: PRESENT: moist, tongue midline Neck exam: PRESENT: full ROM Respiratory exam: PRESENT: clear to auscultation sendy Cardiovascular exam: PRESENT: RRR, +S1, +S2 Pulses: PRESENT: normal dorsalis pedis pul, +2 pedal pulses bilateral Vascular exam: PRESENT: normal capillary refill GI/Abdominal exam: PRESENT: normal bowel sounds, soft Rectal exam: PRESENT: deferred Neurological exam: PRESENT: alert Psychiatric exam: PRESENT: appropriate affect, normal mood Skin exam: PRESENT: dry, intact, warm. ABSENT: cyanosis, rash Results Laboratory Results: 07/02/17 06:25 07/03/17 15:48 07/03/17 15:48 Sodium 138.5 Potassium 3.6 Chloride 101 Carbon Dioxide 30 Anion Gap 8 BUN 15 Creatinine 1.70 H Est GFR ( Amer) 36 L Est GFR (Non-Af Amer) 30 L Glucose 81 Calcium 8.5 Impressions: Chest X-Ray 06/26/17 19:48 IMPRESSION: NO ACUTE RADIOGRAPHIC FINDING IN THE CHEST. Chest CT 06/27/17 00:00 IMPRESSION: INFRAHILAR RIGHT LOWER LOBE AIRSPACE DISEASE COMPATIBLE WITH PNEUMONIA. ENLARGED PULMONARY ARTERY SUGGESTIVE OF PULMONARY HYPERTENSION. ADDITIONAL CHRONIC CHANGES ABOVE.
[2017-07-04] MEDS: LANSOPRAZOLE 15 MG TAB.RAP.DR PO SCH (05:06)
[2017-07-04 07:25] VITALS: BP 132/69
== END 2017-07-04 08:16 | disposition home or self-care (01) | DRG 178 ==
LOC: ER 19:28 → EH 06-27 00:35 → 4N 06-27 12:40 → OBSVTOIN 06-27 18:33
PROVIDERS: ADMIT Internal Medicine; ATTEND Internal Medicine
DX: J15.212 Pneumonia due to Methicillin resistant Staphylococcus aureus (principal); C91.10 Chronic lymphocytic leukemia of B-cell type not having achieved remission; N17.9 Acute kidney failure, unspecified; J15.6 Pneumonia due to other Gram-negative bacteria; E87.6 Hypokalemia; I10 Essential (primary) hypertension; M19.90 Unspecified osteoarthritis, unspecified site; Z79.899 Other long term (current) drug therapy; Z87.891 Personal history of nicotine dependence; Z86.14 Personal history of Methicillin resistant Staphylococcus aureus infection
CPT/HCPCS: 36415; 71045; 71250; 80048; 80053; 81001; 82803; 82962; 83605; 85025; 85610; 87040; 87070; 87077; 87086; 87186; 87205; 87804; 93005; 93010; 96361; 96365; 96366; 96367; 99285; J1956; J2020; J3480; J3490; J7030

== ENCOUNTER 2017-07-12 08:56 | Inpatient (IN) | payer MEDICARE, MEDICAID ==
[2017-07-12] MEDS ORDERED: ASPIRIN 81 MG TABLET, CHEWABLE PO ONE (09:20)
[2017-07-12] MEDS ORDERED: CEFTRIAXONE 1 GM/D5W RTU 1 GM/50 ML RTUPB IV ONE (09:20)
[2017-07-12] MEDS ORDERED: DILTIAZEM HCL INJ 25 MG/5 ML VIAL IV ONE (09:20)
[2017-07-12] MEDS ORDERED: DILTIAZEM HCL/D5W 125 MG/125 ML RTUINJ IV PRN (09:20)
--- NOTE | 2017-07-12 10:08 | RADIOLOGY REPORT (SQ) ---
EXAM DESCRIPTION: CHEST SINGLE VIEW COMPLETED DATE/TIME: 07/12/2017 10:00 am REASON FOR STUDY: afib, pneumonia COMPARISON: 06/26/2017. EXAM PARAMETERS: NUMBER OF VIEWS: One view. TECHNIQUE: Single frontal radiographic view of the chest acquired. RADIATION DOSE: NA LIMITATIONS: None. FINDINGS: LUNGS AND PLEURA: Scattered linear interstitial densities in the lung bases, unchanged. N o focal infiltrates, masses or pneumothorax. No pleural effusion. MEDIASTINUM AND HILAR STRUCTURES: No masses. Contour normal. HEART AND VASCULAR STRUCTURES: Heart upper limits of normal in size. Normal vasculature. BONES: No acute findings. HARDWARE: Vascular access port. Clips in the upper abdomen. OTHER: No other significant finding. IMPRESSION: BASILAR ATELECTASIS/ SCARRING. NO ACUTE RADIOGRAPHIC FINDING IN THE CHEST. TECHNICAL DOCUMENTATION: JOB ID: [id number] [employer]- All Rights Reserved
[2017-07-12 10:20] LABS: HEMOGLOBIN 8.2 g/dL (12.0-15.5); MEAN CORPUSCULAR HEMOGLOBIN 32.8 pg (27.0-33.4); MEAN CORPUSCULAR VOLUME 97 fl (80-97); RED BLOOD COUNT 2.49 10^6/uL (3.72-5.28); RED CELL DISTRIBUTION WIDTH 16.5 % (11.5-14.0); WHITE BLOOD COUNT 5.3 10^3/uL (4.0-10.5)
[2017-07-12 10:34] LABS: ALANINE AMINOTRANSFERASE 18 U/L (9-52); ALBUMIN 3.5 g/dL (3.5-5.0); ALKALINE PHOSPHATASE 73 U/L (38-126); ANION GAP 11 (5-19); ASPARTATE AMINO TRANSFERASE 23 U/L (14-36); BILIRUBIN,DIRECT 0.4 mg/dL (0.0-0.4); BILIRUBIN,TOTAL 0.8 mg/dL (0.2-1.3); BLOOD UREA NITROGEN 21 mg/dL (7-20); CALCIUM 9.4 mg/dL (8.4-10.2); CARBON DIOXIDE 28 mmol/L (22-30); CHLORIDE 103 mmol/L (98-107); CREATINE KINASE < 20 U/L (30-135); GLUCOSE 125 mg/dL (75-110); POTASSIUM 3.2 mmol/L (3.6-5.0); SODIUM 141.9 mmol/L (137-145); TOTAL PROTEIN 6.4 g/dL (6.3-8.2)
[2017-07-12] MEDS: NORMAL SALINE 1000 ML 1,000 ML IV PRN ×2 (10:44→11:42)
[2017-07-12 10:46] LABS: CREATINE KINASE MB < 0.22 ng/mL (<4.55); TROPONIN I < 0.012 ng/mL
[2017-07-12] MEDS ORDERED: LEVOFLOXACIN 500 MG/D5W RTU 500 MG/100 ML RTUPB IV ONE (11:01)
[2017-07-12] MEDS ORDERED: LINEZOLID 300 ML IV ONE (11:01)
--- NOTE | 2017-07-12 11:02 | ER Document Report ---
ED General - General Chief Complaint: Palpitations Stated Complaint: CHEST PAIN Time Seen by Provider: 07/12/17 09:20 Mode of Arrival: Medic Information source: Patient, [facility] Records Cannot obtain history due to: Unstable vital signs Notes: 71 yr old female hx of CLL, pneumonia presents with complaints of chest pain, palpitations. Pt has no hx of afib, noted by ems to be in afib rvr TRAVEL OUTSIDE OF THE [place] IN LAST 30 DAYS: No - HPI Onset: Just prior to arrival Onset/Duration: Sudden Quality of pain: No pain Severity: Moderate Pain Level: Denies Associated symptoms: Chest pain, Shortness of breath Exacerbated by: Denies Relieved by: Denies Similar symptoms previously: Yes Recently seen / treated by doctor: Yes - Related Data Allergies/Adverse Reactions: No Known Allergies Allergy (Verified 04/19/17 15:46) Past Medical History - Social History Smoking Status: Never Smoker Cigarette use (# per day): No Chew tobacco use (# tins/day): No Smoking Education Provided: No Frequency of alcohol use: None Drug Abuse: None Family History: Reviewed & Not Pertinent Patient has suicidal ideation: No Patient has homicidal ideation: No - Past Medical History Cardiac Medical History: Reports: Hx Hypertension Pulmonary Medical History: Reports: Hx Bronchitis, Hx COPD, Hx Pneumonia Neurological Medical History: Denies: Hx Cerebrovascular Accident Renal/ Medical History: Denies: Hx Peritoneal Dialysis Malignancy Medical History: Reports: Hx Leukemia - chronic lymphocytic leukemia Musculoskeltal Medical History: Reports Hx Arthritis - osteoarthritis Psychiatric Medical History: Denies: Hx Depression Infectious Medical History: Reports: Hx MRSA Past Surgical History: Reports: Hx Abdominal Surgery - spleenectomy. Denies: Hx Bowel Surgery - Immunizations Hx Diphtheria, Pertussis, Tetanus Vaccination: Yes Hx Pneumococcal Vaccination: 08/18/11 Review of Systems - Review of Systems Notes: REVIEW OF SYSTEMS: CONSTITUTIONAL : Denies fever, chills, or sweats. Denies recent illness. EENT: Denies eye, ear, throat, or mouth pain or symptoms. Denies nasal or sinus congestion or discharge. Denies throat, tongue, or mouth swelling or difficulty swallowing. CARDIOVASCULAR: admits to palpations chest pain RESPIRATORY: admits ot cough sob GASTROINTESTINAL: Denies abdominal pain or distention. Denies nausea, vomiting , or diarrhea. Denies blood in vomitus, stools, or per rectum. Denies black, tarry stools. Denies constipation. GENITOURINARY: Denies difficulty urinating, painful urination, burning, frequency, blood in urine, or discharge. FEMALE GENITOURINARY: Denies vaginal bleeding, heavy or abnormal periods, irregular periods. Denies vaginal discharge or odor. MUSCULOSKELETAL: Denies back or neck pain or stiffness. Denies joint pain or swelling. SKIN: Denies rash, lesions or sores. HEMATOLOGIC : Denies easy bruising or bleeding. LYMPHATIC: Denies swollen, enlarged glands. NEUROLOGICAL: Denies confusion or altered mental status. Denies passing out or loss of consciousness. Denies dizziness or lightheadedness. Denies headache. Denies weakness or paralysis or loss of use of either side. Denies problems with gait or speech. Denies sensory loss, numbness, or tingling. Denies seizures. PSYCHIATRIC: Denies anxiety or stress. Denies depression, suicidal ideation, or homicidal ideation. ALL OTHER SYSTEMS REVIEWED AND NEGATIVE. PHYSICAL EXAMINATION: GENERAL: ill-appearing, HEAD: Atraumatic, normocephalic. EYES: Pupils equal round and reactive to light, extraocular movements intact, conjunctiva are normal. ENT: Nares patent, oropharynx clear without exudates. Moist mucous membranes. NECK: Normal range of motion, supple without lymphadenopathy LUNGS: coarse breath sounds HEART: afib rvr ABDOMEN: Soft, nontender, nondistended abdomen. No guarding, no rebound. No masses appreciated. Female : deferred Musculoskeletal: Normal range of motion, no pitting or edema. No cyanosis. NEUROLOGICAL: Cranial nerves grossly intact. Normal speech, normal gait. Normal sensory, motor exams PSYCH: Normal mood, normal affect. SKIN: Warm, Dry, normal turgor, no rashes or lesions noted. Dictation was performed using [email or web address] voice recognition software Physical Exam - Vital signs Vitals: Resp 19 07/12/17 09:35 Course - Re-evaluation Re-evalutation: 07/12/17 11:01 Patient's presentation consistent with A. fib RVR, she is immediately given Cardizem with a heart rate in the 150s per minute, heart rate did improve but the blood pressure did drop, she will be given IV fluids. She is noted to have some renal insufficiency that has worsened as well. Patient will be admitted to her primary care physician who requests IMCU - Vital Signs Vital signs: Temp Pulse Resp BP Pulse Ox 31 H 85/61 L 100 07/12/17 10:48 07/12/17 10:48 07/12/17 10:48 - Laboratory Result Diagrams: 07/12/17 10:00 07/12/17 10:00 Laboratory results interpreted by me: 07/12/17 10:00 Potassium 3.2 L BUN 21 H Creatinine 2.34 H Est GFR ( Amer) 25 L Est GFR (Non-Af Amer) 21 L Glucose 125 H Creatine Kinase < 20 L - Diagnostic Test Radiology reviewed: Image reviewed, Reports reviewed - EKG Interpretation by Me EKG shows normal: [place], ST-T Waves. abnormal: Intervals Rate: Tachycardia Rhythm: A.Fib Critical Care Note - Critical Care Note Total time excluding time spent on procedures (mins): 36 Comments: 36 minutes of critical care time spent in direct contact evaluating and reevaluating the patient, treating symptoms, reviewing labs and studies and speaking with family and consultants excluding any procedures Discharge - Discharge Clinical Impression: Chronic lymphocytic leukemia B-cell type not having achieved remission, Atrial fibrillation with RVR, Acute kidney injury MRSA (methicillin resistant staphylococcus aureus) pneumonia Qualifiers: Laterality: right Lung location: unspecified part of lung Qualified Code(s): J15.212 - Pneumonia due to Methicillin resistant Staphylococcus aureus Condition: Fair Disposition: ADMITTED INPATIENT Admitting Provider: [facility] Admitted: IMCU Referrals: ERUM HENAO MD [Primary Care Provider] - Follow up as needed
[2017-07-12 11:11] LABS: PLATELET COUNT 98 10^3/uL (150-450)
[2017-07-12 11:20] LABS: ABSOLUTE LYMPHOCYTES# (MANUAL) 3.5 10^3/uL (0.5-4.7); ABSOLUTE MONOCYTES # (MANUAL) 0.3 10^3/uL (0.1-1.4); ABSOLUTE NEUTROPHILS# (MANUAL) 1.4 10^3/uL (1.7-8.2); ANISOCYTOSIS 1+; BAND NEUTROPHILS % (MANUAL) 5 % (3-5); BASOPHILS % (MANUAL) 0 % (0-2); EOSINOPHILS % (MANUAL) 3 % (0-6); HYPOCHROMASIA SLIGHT; LYMPHOCYTES % (MANUAL) 65 % (13-45); METAMYELOCYTES % (MANUAL) 1 % (0); MONOCYTES % (MANUAL) 5 % (3-13); OVALOCYTES 2+; PLATELET COMMENT DECREASED; POLYCHROMASIA SLIGHT; SEGMENTED NEUTROPHILS % (MAN) 20 % (42-78); TOTAL CELLS COUNTED 100; TOXIC GRANULATION 1+; TOXIC VACUOLATION PRESENT
[2017-07-12 11:21] LABS: ROULEAUX SLIGHT
--- NOTE | 2017-07-12 11:56 | EKG REPORT ---
SEVERITY:- ABNORMAL ECG - ATRIAL FIBRILLATION TALL R WAVE IN V2, CONSIDER RVH OR PMI REPOLARIZATION ABNORMALITY, PROB RATE RELATED PROLONGED QT INTERVAL : Confirmed by: Ina Bloom 12-Jul-2017 11:54:38
[2017-07-12] MEDS ORDERED: CEFTRIAXONE SODIUM 1,000 MG in DEXTROSE 5%-WATER 100 ML IV ONE (13:15)
[2017-07-12] MEDS ORDERED: LINEZOLID 600 MG RTU 300 ML IV ONE (17:00)
--- NOTE | 2017-07-12 17:48 | PDOC H&P ---
History of Present Illness Admission Date/PCP: 07/12/17 11:20 ERUM HENAO MD History of Present Illness: JANET ABBOTT is a 71 year old female, she was recently discharged from this hospital on 07/03/2017 when she was diagnosed with MRSA and Proteus pneumonia she had episode of palpitation associated with shortness of breath family called rescue squad, she was found to be in atrial fibrillation, transferred to the emergency room, in the emergency room she was found to be in A. fib, started on Cardizem infusion. She had episode of proximal atrial fibrillation back in April 2017 when she was admitted for pneumonia at that time a 2D echo was done, on April 24, 2017 a 2D echo showed normal-sized left atrium, and normal ejection fraction of left ventricle, grade 2 diastolic dysfunction of left ventricle she was rate controlled with metoprolol she was not given chronic anticoagulation because of a low leatha S2 score at the time. She was supposed to continue Zyvox and Levaquin for 30 days. Past Medical History Cardiac Medical History: Reports: Hypertension Pulmonary Medical History: Reports: Bronchitis, Chronic Obstructive Pulmonary Disease (COPD), Pneumonia Malignancy Medical History: Reports: Leukemia - chronic lymphocytic leukemia Musculoskeltal Medical History: Reports: Arthritis - osteoarthritis Psychiatric Medical History: Denies: Depression Infectious Medical History: Reports: Methicillin-Resistant Staph Aureus Social History Smoking Status: Never Smoker Frequency of Alcohol Use: None Hx Recreational Drug Use: No Drugs: None Hx Prescription Drug Abuse: No Family History Family History: Reviewed & Not Pertinent Parental Family History Reviewed: Yes Children Family History Reviewed: Yes Sibling(s) Family History Reviewed.: Yes Medication/Allergy Home Medications: Hydrocodone Bit/Acetaminophen [Hydrocodon-Acetaminophn 10-325] 1 tab PO Q8HP PRN 07/12/17 Levofloxacin [Levaquin 750 mg Tablet] 750 mg PO Q48H 07/12/17 Linezolid [Zyvox 600 mg Tablet] 600 mg PO Q12 07/12/17 Metoprolol Succinate [Toprol Xl 50 mg Tab.sr] 75 mg PO DAILY 07/12/17 Montelukast Sodium [Singulair 10 mg Tablet] 10 mg PO QHS 07/12/17 Allergies/Adverse Reactions: No Known Allergies Allergy (Verified 04/19/17 15:46) Review of Systems Constitutional: PRESENT: weight loss Cardiovascular: PRESENT: palpitations Respiratory: PRESENT: cough Gastrointestinal: ABSENT: as per HPI, abdominal pain, bloating, coffee ground emesis, constipation, diarrhea, dysphagia, heartburn, hematemesis, hematochezia , melena, nausea, vomiting, other Genitourinary: ABSENT: as per HPI, difficulty urinating, dysuria, hematuria, nocturia, other Musculoskeletal: PRESENT: back pain Physical Exam Vital Signs: Temp Pulse Resp BP Pulse Ox 98.2 F 71 18 110/67 96 07/12/17 16:22 07/12/17 16:35 07/12/17 16:22 07/12/17 16:35 07/12/17 16:22 Intake & Output 07/11/17 07/12/17 07/13/17 06:59 06:59 06:59 Weight 54.431 kg General appearance: PRESENT: no acute distress Respiratory exam: PRESENT: clear to auscultation sendy Cardiovascular exam: PRESENT: irregular rhythm, +S1, +S2 GI/Abdominal exam: PRESENT: soft Neurological exam: PRESENT: alert, CN II-XII grossly intact Results Impressions: Chest X-Ray 07/12/17 09:20 IMPRESSION: BASILAR ATELECTASIS/ SCARRING. NO ACUTE RADIOGRAPHIC FINDING IN THE CHEST. Assessment & Plan - Diagnosis (1) Paroxysmal atrial fibrillation Is this a current diagnosis for this admission?: Yes Plan: Patient presently on IV Cardizem, will continue same treatment, start anticoagulant with Eliquis (2) Acute kidney injury Is this a current diagnosis for this admission?: Yes Plan: She has underlining chronic kidney disease with superimposed acute kidney injury / prerenal, start normal saline (3) MRSA (methicillin resistant staphylococcus aureus) pneumonia Qualifiers: Laterality: unspecified laterality Lung location: unspecified part of lung Qualified Code(s): J15.212 - Pneumonia due to Methicillin resistant Staphylococcus aureus Is this a current diagnosis for this admission?: Yes Plan: Continue Zyvox (4) Proteus pneumonia Is this a current diagnosis for this admission?: Yes Plan: Continue Levaquin
[2017-07-12] MEDS: LEVOFLOXACIN 750 MG TABLET PO SCH (18:44)
[2017-07-12] MEDS ORDERED: APIXABAN 2.5 MG TABLET PO ONE (18:45)
[2017-07-12] MEDS: LINEZOLID 600 MG TABLET PO SCH (21:19)
[2017-07-12] MEDS: MONTELUKAST SODIUM 10 MG TABLET PO SCH (21:19)
[2017-07-13 05:30] LABS: ALANINE AMINOTRANSFERASE 24 U/L (9-52); ALBUMIN 2.8 g/dL (3.5-5.0); ALKALINE PHOSPHATASE 62 U/L (38-126); ANION GAP 9 (5-19); ASPARTATE AMINO TRANSFERASE 16 U/L (14-36); BILIRUBIN,DIRECT 0.3 mg/dL (0.0-0.4); BILIRUBIN,TOTAL 0.6 mg/dL (0.2-1.3); BLOOD UREA NITROGEN 19 mg/dL (7-20); CALCIUM 8.5 mg/dL (8.4-10.2); CARBON DIOXIDE 29 mmol/L (22-30); CHLORIDE 105 mmol/L (98-107); GLUCOSE 76 mg/dL (75-110); POTASSIUM 3.1 mmol/L (3.6-5.0); SODIUM 143.3 mmol/L (137-145); TOTAL PROTEIN 5.1 g/dL (6.3-8.2)
[2017-07-13] MEDS: POTASSI CL 40 MEQ/NS 1L 1,000 ML IV PRN ×2 (06:38→16:39)
[2017-07-13] MEDS: METOPROLOL SUCCINATE 50 MG TAB.SR.24H PO SCH (09:43)
[2017-07-13] MEDS ORDERED: APIXABAN 2.5 MG TABLET PO SCH (10:00)
--- NOTE | 2017-07-13 11:29 | PDOC CONSULTATION ---
Consultation Consult Date: 07/12/17 Attending physician:: ERUM HENAO Consult reason:: Atrial fibrillation History of Present Illness Admission Date/PCP: 07/12/17 11:20 ERUM HENAO MD Patient complains of: Shortness of breath History of Present Illness: JANET ABBOTT is a 71 year old female, she was recently discharged from this hospital on 07/03/2017 when she was diagnosed with MRSA and Proteus pneumonia. She had episode of palpitation associated with shortness of breath family called rescue squad, she was found to be in atrial fibrillation, transferred to the emergency room, in the emergency room she was found to be in A. fib, started on Cardizem infusion. She had episode of proximal atrial fibrillation back in April 2017 when she was admitted for pneumonia at that time a 2D echo was done, on April 24, 2017 a 2D echo showed normal-sized left atrium, and normal ejection fraction of left ventricle, grade 2 diastolic dysfunction of left ventricle she was rate controlled with metoprolol she was not given chronic anticoagulation because of a low leatha S2 score at the time. She was supposed to continue Zyvox and Levaquin for 30 days. I was asked to evaluate patient because of recurrent atrial fibrillation with controlled ventricular response. By the time I saw her, she had converted to sinus rhythm. She was taken off the Cardizem drip by the nurses. Patient denied any prior history of strokes or mini strokes. Past Medical History Cardiac Medical History: Reports: Hypertension Pulmonary Medical History: Reports: Bronchitis, Chronic Obstructive Pulmonary Disease (COPD), Pneumonia Malignancy Medical History: Reports: Leukemia - chronic lymphocytic leukemia Musculoskeltal Medical History: Reports: Arthritis - osteoarthritis Psychiatric Medical History: Denies: Depression Infectious Medical History: Reports: Methicillin-Resistant Staph Aureus Social History Information Source: Patient Smoking Status: Never Smoker Frequency of Alcohol Use: None Hx Recreational Drug Use: No Drugs: None Hx Prescription Drug Abuse: No - Advance Directive Resuscitation Status: Full Code Surrogate healthcare decision maker:: Patient's sister is the surrogate decision-maker Family History Family History: Hypertension Parental Family History Reviewed: Yes Children Family History Reviewed: Yes Sibling(s) Family History Reviewed.: Yes Medication/Allergy Home Medications: Hydrocodone Bit/Acetaminophen [Hydrocodon-Acetaminophn 10-325] 1 tab PO Q8HP PRN 07/12/17 Levofloxacin [Levaquin 750 mg Tablet] 750 mg PO Q48H 07/12/17 Linezolid [Zyvox 600 mg Tablet] 600 mg PO Q12 07/12/17 Metoprolol Succinate [Toprol Xl 50 mg Tab.sr] 75 mg PO DAILY 07/12/17 Montelukast Sodium [Singulair 10 mg Tablet] 10 mg PO QHS 07/12/17 Allergies/Adverse Reactions: No Known Allergies Allergy (Verified 04/19/17 15:46) Review of Systems Review of Systems: Please see history of present illness and past medical history as wall. Constitutional: No fever or chills reported. Head : No recent chronic headaches, recent head injury. Eyes: No recent eye pain, diplopia, redness, discharge, acute visual changes. Ears: No recent chronic ear pain, acute hearing loss, ear discharge. Oral cavity: No recent ulcerations, bleeding, oral cavity discomfort. Neck: No recent acute neck pain reported. Hematologic: No recent easy bruising or bleeding or hematologic malignancy reported. Lymphatic: No recent lymphatic malignancy, chronic lymphadenopathy reported yet Cardiovascular system review: See history of present illness. Respiratory system review: History of recent pneumonia and recuperating from that. Denies hemoptysis, blood clots in the lungs reported. Mild Shortness of breath on exertion Gastrointestinal system review: Negative for any recent acute or chronic abdominal pain, hematemesis, melena, recent change in bowel habits. Genitourinary system review: No recent acute or chronic hematuria, flank pain, UTI etc. reported. Skin system review: Negative for any recent abnormal bruising, no rash, no pruritus reported. Neurologic: No prior history of strokes, mini strokes, seizure disorder. Psychologic: No history of major psychosis or major depression reported. Musculoskeletal: Minor aches and pains reported. No acute joint swelling reported. Endocrine: No recent polyuria, polydipsia, recent heat or cold intolerance. Physical Exam Vital Signs: Temp Pulse Resp BP Pulse Ox 97.8 F 84 20 116/72 100 07/12/17 19:34 07/12/17 19:34 07/12/17 19:34 07/12/17 19:34 07/12/17 19:34 Intake & Output 07/11/17 07/12/17 07/13/17 06:59 06:59 06:59 Intake Total 133 Balance 133 Weight 54.431 kg Exam: GENERAL: well-nourished and in no acute distress. Alert and oriented x3 HEAD: Atraumatic, normocephalic. EYES: Pupils equal round and reactive to light, extraocular movements intact, sclera anicteric, conjunctiva are normal. ENT: TMs normal, nares patent, oropharynx clear without exudates. Moist mucous membranes. No oral ulcerations or bleeding gums noted NECK: supple without lymphadenopathy. Trachea is central. No cervical or axillary lymphadenopathy noted. Carotids are 2+, JVD WNL LUNGS: Respiration seems nonlabored, no significant accessory muscle action noted. Breath sounds clear to auscultation bilaterally and equal noted. No wheezes rales or rhonchi noted. No significant dullness noted on percussion. CHEST: Palpation of the chest wall shows no significant chest wall tenderness. No other significant abnormalities noted. 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 ABDOMEN: Soft, no significant tenderness appreciated, normoactive bowel sounds. No guarding, no rebound. No rigidity noted . No masses appreciated. EXTREMITIES: Pedal pulses are 1-2+, no calf tenderness noted. No clubbing or cyanosis.trace to 1+ pedal edema noted NEUROLOGICAL: Focused neurological exam showed no significant neurologic deficit. Normal speech, no focal weakness appreciated. PSYCH: Normal mood, normal affect. Judgment and insight within normal limits. SKIN: No significant ecchymosis, rash, ulcerations or signs of pruritus noted. MUSCULOSKELETAL EXAM: No significant joint swelling noted. Results Laboratory Results: 07/12/17 17:18 Troponin I 0.053 EKG Comments: Atrial fibrillation with rapid ventricular response and minor nonspecific ST- wave changes Impressions: Chest X-Ray 07/12/17 09:20 IMPRESSION: BASILAR ATELECTASIS/ SCARRING. NO ACUTE RADIOGRAPHIC FINDING IN THE CHEST. 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 Patient does respond nicely to Cardizem. While in the hospital will add small dose of Cardizem. Patient will benefit from a event monitor as an outpatient. As regards chronic anticoagulation, patient is felt a candidate based on chads score of 2 but she does have some relative contraindications such as low platelet count, chronic leukemia, low hemoglobin. 2D echo shows normal left atrial size. I did note that patient is currently on Eliquis at 2.5 mg p.o. twice daily which I feel is the right dose. Patient would benefit from very close observation for any bleeding complications. Chronic lymphocytic leukemia: Patient being managed by oncologist. I believe he may have some input regarding chronic anticoagulation. Will take his input. Hypertension: Currently stable. Will add Cardizem to the regimen. - Time Time Spent: 30 to 50 Minutes - CODE STATUS was discussed, patient remains full code. Surrogate decision-maker unchanged. Multiple medical problems were addressed. More than 50% of the time spent coordinating care, discussing management plans with involved caregivers. Management plans discussed with involved personnels. Medical decision making was of moderate to high complexity , patient's has multiple comorbidities. Medications reviewed and adjusted accordingly: Yes
[2017-07-13] MEDS ORDERED: DILTIAZEM HCL 120 MG CAP.SR.24H PO ONE (12:00)
[2017-07-13] MEDS: LINEZOLID 600 MG TABLET PO SCH ×2 (13:08→21:44)
--- NOTE | 2017-07-13 19:53 | XCELERA REPORT ---
[address] [address] Transthoracic Echocardiogram Report Name: JANET ABBOTT Age: 71 yrs Gender: Female : 1945 Patient Status: Inpatient Patient Location: [address] [place] [address] Study Date: 07/13/2017 11:02 AM Height: 60 in Weight: 119 lb BSA: 1.5 m2 Procedure: A complete two-dimensional transthoracic echocardiogram was performed (2D, M-mode, spectral and color flow Doppler). The study was technically difficult with many images being suboptimal in quality. Reason For Study: Atrial fibrillation Ordering Physician: INA BARBA Performed By: Ariella De La Garza Interpretation Summary Left ventricular systolic function is low normal. There is mild concentric left ventricular hypertrophy. The left ventricle is grossly normal size. Doppler measurements suggest pseudonormalized left ventricular relaxation, which is associated with grade II/IV or mild to moderate diastolic dysfunction Wall motion cannot be accurately commented on, but no definite regional wall motion abnormalities noted. The right ventricular systolic function is normal. The right ventricle is grossly normal size. The left atrial size is normal. The right atrium is normal in size There is a trace to mild amount of mitral regurgitation There is no mitral valve stenosis. No aortic regurgitation is present. There is no aortic valve stenosis There is a trace to mild amount of tricuspid regurgitation There is mild pulmonary hypertension by echo Right ventricular systolic pressure is estimated to be elevated at 30- 40mmHg. The aortic root is not well visualized. The inferior vena cava appeared normal and decreased < 50% with respiration (RAP 10-15 mmHg) There is no pericardial effusion. MMode/2D Measurements & Calculations RVDd: 1.9 cm LVIDd: 4.3 cm FS: 21.0 % Ao root diam: 2.6 cm IVSd: 1.1 cm LVIDs: 3.4 cm EDV(Teich): 84.1 ml LVPWd: 1.1 cm ESV(Teich): 48.0 ml Ao root area: 5.2 cm2 EF(Teich): 43.0 % LA dimension: 2.7 cm Doppler Measurements & Calculations MV E max jason: MV P1/2t max jason: Ao V2 max: LV V1 max P.2 cm/sec 58.2 cm/sec 116.4 cm/sec 3.0 mmHg MV A max jason: MV P1/2t: 61.9 msec Ao max PG: LV V1 max: 84.4 cm/sec 5.4 mmHg 85.9 cm/sec MV E/A: 0.70 MVA(P1/2t): 3.6 cm2 MV dec slope: 275.7 cm/sec2 PA V2 max: TR max jason: 71.1 cm/sec 298.6 cm/sec PA max PG: TR max P.7 mmHg 2.0 mmHg Left Ventricle The left ventricle is grossly normal size. There is mild concentric left ventricular hypertrophy. Left ventricular systolic function is low normal. Doppler measurements suggest pseudonormalized left ventricular relaxation, which is associated with grade II/IV or mild to moderate diastolic dysfunction. Wall motion cannot be accurately commented on, but no definite regional wall motion abnormalities noted. Right Ventricle The right ventricle is grossly normal size. The right ventricular systolic function is normal. Atria The right atrium is normal in size. The left atrial size is normal. Interarterial septum not well visualized and not well dopplered. Cannot comment on ASD/PFO presence. Mitral Valve The mitral valve is grossly normal. There is no mitral valve stenosis. There is a trace to mild amount of mitral regurgitation. Aortic Valve The aortic valve is not well visualized secondary to technical limitations. There is no aortic valve stenosis. No aortic regurgitation is present. Tricuspid Valve The tricuspid valve is not well visualized secondary to technical limitations. There is no tricuspid stenosis. There is a trace to mild amount of tricuspid regurgitation. There is mild pulmonary hypertension by echo. Right ventricular systolic pressure is estimated to be elevated at 30-40mmHg. Pulmonic Valve The pulmonic valve is not well visualized. Great Vessels The aortic root is not well visualized. The inferior vena cava appeared normal and decreased < 50% with respiration (RAP 10-15 mmHg). Effusions There is no pericardial effusion. : INA BARBA > Ina Barba
[2017-07-13] MEDS: MONTELUKAST SODIUM 10 MG TABLET PO SCH (21:44)
[2017-07-13] MEDS: DILTIAZEM HCL 120 MG CAP.SR.24H PO SCH (21:44)
[2017-07-13] MEDS: APIXABAN 2.5 MG TABLET PO SCH (21:44)
--- NOTE | 2017-07-13 22:15 | PDOC PROGRESS REPORT ---
Subjective Progress Note for:: 07/13/17 Subjective:: She was seen by the bedside, she was concerned if the mold in mobile home who would be affecting her joseph, she is contemplating on moving to a new apartment. She also complains of mouth dryness, she believes the dryness is from Zyvox, Zyvox is not supposed to cause mouth dryness. Reason For Visit: CHRONIC LYMPHOCYTIC LEUKEMIA B CELL TYPE NOT Physical Exam Vital Signs: Temp Pulse Resp BP Pulse Ox 98.6 F 77 20 128/65 H 95 07/13/17 20:28 07/13/17 20:28 07/13/17 20:28 07/13/17 20:28 07/13/17 20:28 Intake & Output 07/12/17 07/13/17 07/14/17 06:59 06:59 06:59 Intake Total 235 1559 Balance 235 1559 Weight 56.5 kg General appearance: PRESENT: no acute distress Eye exam: PRESENT: PERRLA Mouth exam: PRESENT: dry mucosa Respiratory exam: PRESENT: clear to auscultation sendy Cardiovascular exam: PRESENT: +S1, +S2 GI/Abdominal exam: PRESENT: soft Neurological exam: PRESENT: alert, CN II-XII grossly intact Results Laboratory Results: 07/13/17 04:30 07/13/17 04:30 Sodium 143.3 Potassium 3.1 L Chloride 105 Carbon Dioxide 29 Anion Gap 9 BUN 19 Creatinine 2.22 H Est GFR ( Amer) 26 L Est GFR (Non-Af Amer) 22 L Glucose 76 Calcium 8.5 Total Bilirubin 0.6 AST 16 ALT 24 Alkaline Phosphatase 62 Total Protein 5.1 L Albumin 2.8 L 07/12/17 17:18 Troponin I 0.053 Impressions: Chest X-Ray 07/12/17 09:20 IMPRESSION: BASILAR ATELECTASIS/ SCARRING. NO ACUTE RADIOGRAPHIC FINDING IN THE CHEST. Assessment & Plan - Diagnosis (1) Paroxysmal atrial fibrillation Is this a current diagnosis for this admission?: Yes (2) Acute kidney injury Is this a current diagnosis for this admission?: Yes (3) MRSA (methicillin resistant staphylococcus aureus) pneumonia Qualifiers: Laterality: unspecified laterality Lung location: unspecified part of lung Qualified Code(s): J15.212 - Pneumonia due to Methicillin resistant Staphylococcus aureus Is this a current diagnosis for this admission?: Yes (4) Proteus pneumonia Is this a current diagnosis for this admission?: Yes - Plan Summary Plan Summary: She will continue present medications
[2017-07-14] MEDS: DILTIAZEM HCL 120 MG CAP.SR.24H PO SCH ×2 (09:37→22:10)
[2017-07-14] MEDS: APIXABAN 2.5 MG TABLET PO SCH (09:37)
[2017-07-14] MEDS: METOPROLOL SUCCINATE 50 MG TAB.SR.24H PO SCH (09:38)
[2017-07-14] MEDS: LINEZOLID 600 MG TABLET PO SCH ×2 (09:38→22:09)
[2017-07-14] MEDS: POTASSI CL 40 MEQ/NS 1L 1,000 ML IV PRN (12:42)
--- NOTE | 2017-07-14 13:06 | PDOC PROGRESS REPORT ---
Subjective Progress Note for:: 07/13/17 Subjective:: Patient seems to be doing better with gradual improvement. Pt is denying any chest arm or neck discomfort. Patient denying any PND, orthopnea. Patient denied any sustained palpitations, dizziness, syncope, near syncope. Patient denying any fever chills. Patient denying any other significant discomfort. Patient is maintaining sinus rhythm. Patient has converted spontaneously last night to sinus rhythm. Review of systems: Rest review of systems negative. Medications: Medications have been reviewed. Reason For Visit: CHRONIC LYMPHOCYTIC LEUKEMIA B CELL TYPE NOT Physical Exam Vital Signs: Temp Pulse Resp BP Pulse Ox 97.9 F 72 17 137/70 H 99 07/13/17 15:23 07/13/17 15:23 07/13/17 15:23 07/13/17 15:23 07/13/17 15:23 Intake & Output 07/12/17 07/13/17 07/14/17 06:59 06:59 06:59 Intake Total 235 1559 Balance 235 1559 Weight 56.5 kg Exam: GENERAL: well-nourished and in no acute distress. Alert and oriented x3 HEAD: Atraumatic, normocephalic. EYES: Pupils equal round and reactive to light, extraocular movements intact, sclera anicteric, conjunctiva are normal. ENT: TMs normal, nares patent, oropharynx clear without exudates. Moist mucous membranes. No oral ulcerations or bleeding gums noted NECK: supple without lymphadenopathy. Trachea is central. No cervical or axillary lymphadenopathy noted. Carotids are 2+, JVD WNL LUNGS: Respiration seems nonlabored, no significant accessory muscle action noted. Breath sounds clear to auscultation bilaterally and equal noted. No wheezes rales or rhonchi noted. No significant dullness noted on percussion. CHEST: Palpation of the chest wall shows no significant chest wall tenderness. No other significant abnormalities noted. Port-A-Cath noted. 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 ABDOMEN: Soft, no significant tenderness appreciated, normoactive bowel sounds. No guarding, no rebound. No rigidity noted . No masses appreciated. EXTREMITIES: Pedal pulses are 1-2+, no calf tenderness noted. No clubbing or cyanosis.trace pedal edema noted NEUROLOGICAL: Focused neurological exam showed no significant neurologic deficit. Normal speech, no focal weakness appreciated. PSYCH: Normal mood, normal affect. Judgment and insight within normal limits. SKIN: No significant ecchymosis, rash, ulcerations or signs of pruritus noted. MUSCULOSKELETAL EXAM: No significant joint swelling noted. Results Laboratory Results: 07/13/17 04:30 07/13/17 04:30 Sodium 143.3 Potassium 3.1 L Chloride 105 Carbon Dioxide 29 Anion Gap 9 BUN 19 Creatinine 2.22 H Est GFR ( Amer) 26 L Est GFR (Non-Af Amer) 22 L Glucose 76 Calcium 8.5 Total Bilirubin 0.6 AST 16 ALT 24 Alkaline Phosphatase 62 Total Protein 5.1 L Albumin 2.8 L 07/12/17 17:18 Troponin I 0.053 EKG Comments: Shows sinus rhythm. No sustained tachycardia or bradycardia arrhythmias noted. Impressions: Chest X-Ray 07/12/17 09:20 IMPRESSION: BASILAR ATELECTASIS/ SCARRING. NO ACUTE RADIOGRAPHIC FINDING IN THE CHEST. 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 Patient does respond nicely to Cardizem. While in the hospital will add small dose of Cardizem. Patient will benefit from a event monitor as an outpatient. Patient is currently on Eliquis at 2.5 mg p.o. twice daily which I feel is the right dose. Patient would benefit from very close observation for any bleeding complications. Chronic lymphocytic leukemia: Patient being managed by oncologist. I believe he may have some input regarding chronic anticoagulation. Will take his input. Hypertension: Currently stable. Will add Cardizem to the regimen. This is for both rate control and blood pressure elevation. - Time Time with patient: 15-25 minutes - CODE STATUS was discussed, patient remains full code. Surrogate decision-maker unchanged. Multiple medical problems were addressed. More than 50% of the time spent coordinating care, discussing management plans with involved caregivers. Management plans discussed with involved personnels. Medical decision making was of moderate to high complexity , patient's has multiple comorbidities. Medications reviewed and adjusted accordingly: Yes
--- NOTE | 2017-07-14 13:09 | PDOC PROGRESS REPORT ---
Subjective Progress Note for:: 07/14/17 Subjective:: Patient seems to be doing better with gradual improvement. Pt is denying any chest arm or neck discomfort. Patient denying any PND, orthopnea. Patient denied any sustained palpitations, dizziness, syncope, near syncope. Patient denying any fever chills. Patient denying any other significant discomfort. Patient is maintaining sinus rhythm. Patient tolerating Cardizem which was added yesterday. Review of systems: Rest review of systems negative. Medications: Medications have been reviewed. Reason For Visit: CHRONIC LYMPHOCYTIC LEUKEMIA B CELL TYPE NOT Physical Exam Vital Signs: Temp Pulse Resp BP Pulse Ox 97.8 F 71 18 112/53 L 98 07/14/17 07:58 07/14/17 07:58 07/14/17 07:58 07/14/17 07:58 07/14/17 07:58 Intake & Output 07/13/17 07/14/17 07/15/17 06:59 06:59 06:59 Intake Total 235 2959 Balance 235 2959 Weight 56.5 kg 54.7 kg Exam: GENERAL: well-nourished and in no acute distress. Alert and oriented x3 HEAD: Atraumatic, normocephalic. EYES: Pupils equal round and reactive to light, extraocular movements intact, sclera anicteric, conjunctiva are normal. ENT: TMs normal, nares patent, oropharynx clear without exudates. Moist mucous membranes. No oral ulcerations or bleeding gums noted NECK: supple without lymphadenopathy. Trachea is central. No cervical or axillary lymphadenopathy noted. Carotids are 2+, JVD WNL LUNGS: Respiration seems nonlabored, no significant accessory muscle action noted. Breath sounds clear to auscultation bilaterally and equal noted. No wheezes rales or rhonchi noted. No significant dullness noted on percussion. CHEST: Palpation of the chest wall shows no significant chest wall tenderness. No other significant abnormalities noted. Port-A-Cath noted. 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 ABDOMEN: Soft, no significant tenderness appreciated, normoactive bowel sounds. No guarding, no rebound. No rigidity noted . No masses appreciated. EXTREMITIES: Pedal pulses are 1-2+, no calf tenderness noted. No clubbing or cyanosis. Negative pedal edema noted NEUROLOGICAL: Focused neurological exam showed no significant neurologic deficit. Normal speech, no focal weakness appreciated. PSYCH: Normal mood, normal affect. Judgment and insight within normal limits. SKIN: No significant ecchymosis, rash, ulcerations or signs of pruritus noted. MUSCULOSKELETAL EXAM: No significant joint swelling noted. Results Laboratory Results: 07/13/17 04:30 07/12/17 17:18 Troponin I 0.053 Impressions: Chest X-Ray 07/12/17 09:20 IMPRESSION: BASILAR ATELECTASIS/ SCARRING. NO ACUTE RADIOGRAPHIC FINDING IN THE CHEST. 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 Patient does respond nicely to Cardizem. Continue Cardizem patient is currently on Eliquis at 2.5 mg p.o. twice daily which I feel is the right dose. Patient would benefit from very close observation for any bleeding complications. Continue metoprolol succinate at 75 mg a day. Chronic lymphocytic leukemia: Patient being managed by oncologist. I believe he may have some input regarding chronic anticoagulation. Will take his input. Hypertension: Currently stable. Continue Cardizem and metoprolol succinate at current dose. This is for both rate control and blood pressure elevation. - Time Time with patient: 15-25 minutes - CODE STATUS was discussed, patient remains full code. Surrogate decision-maker unchanged. Multiple medical problems were addressed. More than 50% of the time spent coordinating care, discussing management plans with involved caregivers. Management plans discussed with involved personnels. Medical decision making was of moderate to high complexity , patient's has multiple comorbidities. Medications reviewed and adjusted accordingly: Yes
[2017-07-14 14:56] LABS: HEMATOCRIT 21.9 % (36.0-47.0); MEAN CORPUSCULAR HEMOGLOBIN 32.1 pg (27.0-33.4); MEAN CORPUSCULAR HGB CONC 33.3 g/dL (32.0-36.0); MEAN CORPUSCULAR VOLUME 97 fl (80-97); RED BLOOD COUNT 2.27 10^6/uL (3.72-5.28); RED CELL DISTRIBUTION WIDTH 16.2 % (11.5-14.0); WHITE BLOOD COUNT 4.9 10^3/uL (4.0-10.5)
[2017-07-14 15:11] LABS: ANION GAP 13 (5-19); BLOOD UREA NITROGEN 15 mg/dL (7-20); CALCIUM 8.5 mg/dL (8.4-10.2); CARBON DIOXIDE 22 mmol/L (22-30); CHLORIDE 108 mmol/L (98-107); GLUCOSE 137 mg/dL (75-110); POTASSIUM 4.3 mmol/L (3.6-5.0); SODIUM 143.4 mmol/L (137-145)
[2017-07-14 15:31] LABS: HEMOGLOBIN 7.3 g/dL (12.0-15.5); PLATELET COUNT 55 10^3/uL (150-450)
[2017-07-14 16:14] LABS: APPEARANCE,URINE CLEAR; BILIRUBIN,URINE NEGATIVE (NEGATIVE); COLOR,URINE STRAW; GLUCOSE, URINE NEGATIVE (NEGATIVE); KETONES,URINE NEGATIVE (NEGATIVE); LEUKOCYTE ESTERASE,URINE NEGATIVE (NEGATIVE); NITRITE,URINE NEGATIVE (NEGATIVE); PROTEIN,URINE NEGATIVE (NEGATIVE); URINE SPECIFIC GRAVITY 1.004; UROBILINOGEN,URINE NEGATIVE mg/dL (<2.0)
[2017-07-14 16:16] LABS: HEMATOCRIT 22.5 % (36.0-47.0); MEAN CORPUSCULAR HEMOGLOBIN 31.9 pg (27.0-33.4); MEAN CORPUSCULAR HGB CONC 33.3 g/dL (32.0-36.0); MEAN CORPUSCULAR VOLUME 96 fl (80-97); RED BLOOD COUNT 2.35 10^6/uL (3.72-5.28); RED CELL DISTRIBUTION WIDTH 16.3 % (11.5-14.0); WHITE BLOOD COUNT 4.6 10^3/uL (4.0-10.5)
[2017-07-14 16:22] LABS: UR PRO/CREAT RATIO RESULT 0.5 mg/mg (0.0-0.2); URINE PROTEIN 12.2 mg/dL (<12)
[2017-07-14 16:32] LABS: ANION GAP 10 (5-19); BLOOD UREA NITROGEN 15 mg/dL (7-20); CALCIUM 8.6 mg/dL (8.4-10.2); CARBON DIOXIDE 24 mmol/L (22-30); CHLORIDE 108 mmol/L (98-107); GLUCOSE 91 mg/dL (75-110); POTASSIUM 4.5 mmol/L (3.6-5.0); SODIUM 141.9 mmol/L (137-145)
[2017-07-14 16:42] LABS: HEMOGLOBIN 7.5 g/dL (12.0-15.5)
[2017-07-14 16:43] LABS: PLATELET COUNT 56 10^3/uL (150-450)
[2017-07-14 16:54] LABS: ABSOLUTE LYMPHOCYTES# (MANUAL) 2.1 10^3/uL (0.5-4.7); ABSOLUTE MONOCYTES # (MANUAL) 0.3 10^3/uL (0.1-1.4); ABSOLUTE NEUTROPHILS# (MANUAL) 1.9 10^3/uL (1.7-8.2); BAND NEUTROPHILS % (MANUAL) 6 % (3-5); BASOPHILS % (MANUAL) 0 % (0-2); EOSINOPHILS % (MANUAL) 6 % (0-6); LYMPHOCYTES % (MANUAL) 46 % (13-45); METAMYELOCYTES % (MANUAL) 1 % (0); MONOCYTES % (MANUAL) 6 % (3-13); SEGMENTED NEUTROPHILS % (MAN) 35 % (42-78); TOTAL CELLS COUNTED 100
[2017-07-14 16:55] LABS: POLYCHROMASIA SLIGHT; TOXIC GRANULATION SLIGHT
[2017-07-14 16:56] LABS: ANISOCYTOSIS 1+; OVALOCYTES 1+; PLATELET COMMENT DECREASED; PLATELET LARGE PRESENT; POIKILOCYTOSIS 1+; TEAR DROP CELLS SLIGHT
--- NOTE | 2017-07-14 17:36 | PDOC PROGRESS REPORT ---
Subjective Progress Note for:: 07/14/17 Subjective:: Patient was seen by the bedside, the platelet count is low, hemoglobin is below 8 there is no evidence of active bleeding, we will discontinue Eliquis because of the low platelet count. She may need blood transfusion. Reason For Visit: CHRONIC LYMPHOCYTIC LEUKEMIA B CELL TYPE NOT Physical Exam Vital Signs: Temp Pulse Resp BP Pulse Ox 97.9 F 66 18 131/75 H 97 07/14/17 11:47 07/14/17 11:47 07/14/17 11:47 07/14/17 11:47 07/14/17 11:47 Intake & Output 07/13/17 07/14/17 07/15/17 06:59 06:59 06:59 Intake Total 235 2959 Balance 235 2959 Weight 56.5 kg 54.7 kg General appearance: PRESENT: no acute distress, well-developed, well-nourished Head exam: PRESENT: atraumatic, normocephalic Eye exam: PRESENT: conjunctiva pink, EOMI, PERRLA Ear exam: PRESENT: normal external ear exam Mouth exam: PRESENT: moist, tongue midline Neck exam: PRESENT: full ROM Respiratory exam: PRESENT: clear to auscultation sendy Cardiovascular exam: PRESENT: RRR, +S1, +S2 Vascular exam: PRESENT: normal capillary refill GI/Abdominal exam: PRESENT: normal bowel sounds, soft Rectal exam: PRESENT: deferred Neurological exam: PRESENT: alert, awake, oriented to person, oriented to place , oriented to time, oriented to situation, CN II-XII grossly intact Psychiatric exam: PRESENT: appropriate affect, normal mood. ABSENT: homicidal ideation, suicidal ideation Skin exam: PRESENT: dry, intact, warm Results Laboratory Results: 07/14/17 15:50 07/14/17 15:50 07/14/17 07/14/17 07/14/17 14:20 14:20 15:46 WBC 4.9 RBC 2.27 L Hgb 7.3 L Hct 21.9 L MCV 97 MCH 32.1 MCHC 33.3 RDW 16.2 H Plt Count 55 L Seg Neutrophils % Lymphocytes % Monocytes % Eosinophils % Basophils % Absolute Neutrophils Absolute Lymphocytes Absolute Monocytes Absolute Eosinophils Absolute Basophils Sodium 143.4 Potassium 4.3 Chloride 108 H Carbon Dioxide 22 Anion Gap 13 BUN 15 Creatinine 1.82 H Est GFR ( Amer) 33 L Est GFR (Non-Af Amer) 28 L Glucose 137 H Calcium 8.5 Urine Color STRAW Urine Appearance CLEAR Urine pH 6.0 Ur Specific [place] 1.004 Urine Protein NEGATIVE Urine Glucose (UA) NEGATIVE Urine Ketones NEGATIVE Urine Blood NEGATIVE Urine Nitrite NEGATIVE Ur Leukocyte Esterase NEGATIVE Urine WBC (Auto) 0 07/14/17 07/14/17 15:50 15:50 WBC 4.6 RBC 2.35 L Hgb 7.5 L Hct 22.5 L MCV 96 MCH 31.9 MCHC 33.3 RDW 16.3 H Plt Count 56 L Seg Neutrophils % Not Reportable Lymphocytes % Not Reportable Monocytes % Not Reportable Eosinophils % Not Reportable Basophils % Not Reportable Absolute Neutrophils Not Reportable Absolute Lymphocytes Not Reportable Absolute Monocytes Not Reportable Absolute Eosinophils Not Reportable Absolute Basophils Not Reportable Sodium 141.9 Potassium 4.5 Chloride 108 H Carbon Dioxide 24 Anion Gap 10 BUN 15 Creatinine 1.79 H Est GFR ( Amer) 34 L Est GFR (Non-Af Amer) 28 L Glucose 91 Calcium 8.6 Urine Color Urine Appearance Urine pH Ur Specific [place] Urine Protein Urine Glucose (UA) Urine Ketones Urine Blood Urine Nitrite Ur Leukocyte Esterase Urine WBC (Auto) 07/12/17 17:18 Troponin I 0.053 Impressions: Chest X-Ray 07/12/17 09:20 IMPRESSION: BASILAR ATELECTASIS/ SCARRING. NO ACUTE RADIOGRAPHIC FINDING IN THE CHEST. Assessment & Plan - Diagnosis (1) Paroxysmal atrial fibrillation Is this a current diagnosis for this admission?: Yes (2) Acute kidney injury Is this a current diagnosis for this admission?: Yes (3) MRSA (methicillin resistant staphylococcus aureus) pneumonia Qualifiers: Laterality: unspecified laterality Lung location: unspecified part of lung Qualified Code(s): J15.212 - Pneumonia due to Methicillin resistant Staphylococcus aureus Is this a current diagnosis for this admission?: Yes (4) Proteus pneumonia Is this a current diagnosis for this admission?: Yes (5) Anemia Qualifiers: Anemia type: other cause Other causes of anemia: antineoplastic chemotherapy Qualified Code(s): D64.81 - Anemia due to antineoplastic chemotherapy; T45.1X5A - Adverse effect of antineoplastic and immunosuppressive drugs, initial encounter; T45.1X5A - Adverse effect of antineoplastic and immunosuppressive drugs, initial encounter Is this a current diagnosis for this admission?: Yes (6) Thrombocytopenia Is this a current diagnosis for this admission?: Yes
[2017-07-14 17:55] LABS: IRON(TIBC) 155.3 ug/dL (37-170)
[2017-07-14 17:58] LABS: ABSOLUTE RETICS # 0.005 10^6/uL (0.028-0.122)
[2017-07-14] MEDS: LEVOFLOXACIN 750 MG TABLET PO SCH (18:09)
[2017-07-14 18:29] LABS: RETICULOCYTE COUNT (AUTO) 0.21 % (0.66-2.85)
[2017-07-14 19:02] LABS: FOLATE 6.87 ng/mL (>2.76)
[2017-07-14] MEDS: MONTELUKAST SODIUM 10 MG TABLET PO SCH (22:10)
[2017-07-15] MEDS: POTASSI CL 40 MEQ/NS 1L 1,000 ML IV PRN (00:13)
[2017-07-15] MEDS ORDERED: EPOETIN ALFA INJ 20000 UNIT/1 ML VIAL (RENAL) SUBCUT ONE (00:45)
[2017-07-15] MEDS ORDERED: EPOETIN ALFA INJ 40000 UNIT/1 ML (ONCOLOGY) ONE (00:56)
[2017-07-15 01:22] LABS: ABSOLUTE RETICS # 0.004 10^6/uL (0.028-0.122)
[2017-07-15] MEDS: METOPROLOL SUCCINATE 50 MG TAB.SR.24H PO SCH (12:04)
[2017-07-15] MEDS: LINEZOLID 600 MG TABLET PO SCH ×2 (12:05→22:04)
[2017-07-15] MEDS: DILTIAZEM HCL 120 MG CAP.SR.24H PO SCH ×2 (12:05→22:04)
--- NOTE | 2017-07-15 12:21 | PDOC PROGRESS REPORT ---
Subjective Progress Note for:: 07/15/17 Subjective:: Patient seems to be doing better with gradual improvement. Pt is denying any chest arm or neck discomfort. Patient denying any PND, orthopnea. Patient denied any sustained palpitations, dizziness, syncope, near syncope. Patient denying any fever chills. Patient denying any other significant discomfort. Patient is maintaining sinus rhythm. Patient tolerating Cardizem and beta- thomas both together. Patient has been noted to have drop in hemoglobin for which Eliquis has been stopped. Dr. Tristan aware of this. Review of systems: Rest review of systems negative. Medications: Medications have been reviewed. Reason For Visit: CHRONIC LYMPHOCYTIC LEUKEMIA B CELL TYPE NOT Physical Exam Vital Signs: Temp Pulse Resp BP Pulse Ox 98.2 F 76 16 134/92 H 99 07/15/17 11:42 07/15/17 11:42 07/15/17 11:42 07/15/17 11:42 07/15/17 11:42 Intake & Output 07/14/17 07/15/17 07/16/17 06:59 06:59 06:59 Intake Total 2959 3882 Balance 2959 3882 Weight 54.7 kg 56.3 kg Exam: GENERAL: well-nourished and in no acute distress. Alert and oriented x3 HEAD: Atraumatic, normocephalic. EYES: Pupils equal round and reactive to light, extraocular movements intact, sclera anicteric, conjunctiva are normal. ENT: TMs normal, nares patent, oropharynx clear without exudates. Moist mucous membranes. No oral ulcerations or bleeding gums noted NECK: supple without lymphadenopathy. Trachea is central. No cervical or axillary lymphadenopathy noted. Carotids are 2+, JVD WNL LUNGS: Respiration seems nonlabored, no significant accessory muscle action noted. Breath sounds clear to auscultation bilaterally and equal noted. No wheezes rales or rhonchi noted. No significant dullness noted on percussion. CHEST: Palpation of the chest wall shows no significant chest wall tenderness. No other significant abnormalities noted. 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 ABDOMEN: Soft, no significant tenderness appreciated, normoactive bowel sounds. No guarding, no rebound. No rigidity noted . No masses appreciated. EXTREMITIES: Pedal pulses are 1-2+, no calf tenderness noted. No clubbing or cyanosis.trace pedal edema noted NEUROLOGICAL: Focused neurological exam showed no significant neurologic deficit. Normal speech, no focal weakness appreciated. PSYCH: Normal mood, normal affect. Judgment and insight within normal limits. SKIN: No significant ecchymosis, rash, ulcerations or signs of pruritus noted. MUSCULOSKELETAL EXAM: No significant joint swelling noted. Results Laboratory Results: 07/14/17 15:50 07/14/17 15:50 07/14/17 07/14/17 07/14/17 14:20 14:20 15:46 WBC 4.9 RBC 2.27 L Hgb 7.3 L Hct 21.9 L MCV 97 MCH 32.1 MCHC 33.3 RDW 16.2 H Plt Count 55 L Seg Neutrophils % Lymphocytes % Monocytes % Eosinophils % Basophils % Absolute Neutrophils Absolute Lymphocytes Absolute Monocytes Absolute Eosinophils Absolute Basophils Retic Count (auto) Absolute Retic Sodium 143.4 Potassium 4.3 Chloride 108 H Carbon Dioxide 22 Anion Gap 13 BUN 15 Creatinine 1.82 H Est GFR ( Amer) 33 L Est GFR (Non-Af Amer) 28 L Glucose 137 H Calcium 8.5 Iron TIBC % Saturation Ferritin Vitamin B12 Folate Urine Color STRAW Urine Appearance CLEAR Urine pH 6.0 Ur Specific [place] 1.004 Urine Protein NEGATIVE Urine Glucose (UA) NEGATIVE Urine Ketones NEGATIVE Urine Blood NEGATIVE Urine Nitrite NEGATIVE Ur Leukocyte Esterase NEGATIVE Urine WBC (Auto) 0 07/14/17 07/14/17 07/14/17 15:50 15:50 15:50 WBC 4.6 RBC 2.35 L Hgb 7.5 L Hct 22.5 L MCV 96 MCH 31.9 MCHC 33.3 RDW 16.3 H Plt Count 56 L Seg Neutrophils % Not Reportable Lymphocytes % Not Reportable Monocytes % Not Reportable Eosinophils % Not Reportable Basophils % Not Reportable Absolute Neutrophils Not Reportable Absolute Lymphocytes Not Reportable Absolute Monocytes Not Reportable Absolute Eosinophils Not Reportable Absolute Basophils Not Reportable Retic Count (auto) 0.21 L Absolute Retic 0.005 L Sodium 141.9 Potassium 4.5 Chloride 108 H Carbon Dioxide 24 Anion Gap 10 BUN 15 Creatinine 1.79 H Est GFR ( Amer) 34 L Est GFR (Non-Af Amer) 28 L Glucose 91 Calcium 8.6 Iron TIBC % Saturation Ferritin Vitamin B12 Folate Urine Color Urine Appearance Urine pH Ur Specific [place] Urine Protein Urine Glucose (UA) Urine Ketones Urine Blood Urine Nitrite Ur Leukocyte Esterase Urine WBC (Auto) 07/14/17 07/14/17 07/15/17 15:50 23:45 01:07 WBC RBC Hgb Hct MCV MCH MCHC RDW Plt Count Seg Neutrophils % Lymphocytes % Monocytes % Eosinophils % Basophils % Absolute Neutrophils Absolute Lymphocytes Absolute Monocytes Absolute Eosinophils Absolute Basophils Retic Count (auto) Cancelled 0.20 L Absolute Retic Cancelled 0.004 L Sodium Potassium Chloride Carbon Dioxide Anion Gap BUN Creatinine Est GFR ( Amer) Est GFR (Non-Af Amer) Glucose Calcium Iron 155.3 TIBC 243 L % Saturation 64 Ferritin 1080.00 H Vitamin B12 > 1000.0 H Folate 6.87 Urine Color Urine Appearance Urine pH Ur Specific [place] Urine Protein Urine Glucose (UA) Urine Ketones Urine Blood Urine Nitrite Ur Leukocyte Esterase Urine WBC (Auto) 07/12/17 17:18 Troponin I 0.053 Impressions: Chest X-Ray 07/12/17 09:20 IMPRESSION: BASILAR ATELECTASIS/ SCARRING. NO ACUTE RADIOGRAPHIC FINDING IN THE CHEST. Assessment & Plan - Diagnosis (1) Atrial fibrillation with rapid ventricular response Is this a current diagnosis for this admission?: Yes (2) Chronic lymphocytic leukemia B-cell type not having achieved remission Is this a current diagnosis for this admission?: Yes (3) Essential hypertension Is this a current diagnosis for this admission?: Yes (4) Anemia Qualifiers: Anemia type: other cause Other causes of anemia: other cause, not classified Qualified Code(s): D64.89 - Other specified anemias Is this a current diagnosis for this admission?: Yes - Notes Notes: Paroxysmal atrial fibrillation with rapid ventricular response: Patient is maintaining sinus rhythm. Patient does respond nicely to Cardizem. Continue Cardizem and metoprolol succinate at current dose. Watch for any bradycardia. Continue metoprolol succinate at 75 mg a day. Chronic lymphocytic leukemia: Patient being managed by oncologist. I believe he may have some input regarding chronic anticoagulation. Will take his input. Hypertension: Currently stable. Continue Cardizem and metoprolol succinate at current dose. This is for both rate control and blood pressure elevation. Anemia: Patient has been noted to have some drop in hemoglobin. Dr. Tristan aware and is managing it. Eliquis has been stopped which which I agree. - Time Time with patient: 15-25 minutes - CODE STATUS was discussed, patient remains full code. Surrogate decision-maker unchanged. Multiple medical problems were addressed. More than 50% of the time spent coordinating care, discussing management plans with involved caregivers. Management plans discussed with involved personnels. Medical decision making was of moderate to high complexity , patient's has multiple comorbidities. Medications reviewed and adjusted accordingly: Yes
--- NOTE | 2017-07-15 14:23 | PDOC PROGRESS REPORT ---
Subjective Progress Note for:: 07/15/17 Subjective:: She was admitted originally for management of atrial fibrillation with rapid ventricular response, she has progressive decline in the red blood cell and platelet count, the reticulocyte count is also low suggesting myelosuppression. She told me that the last time she had chemotherapy was March 2017, she has history of CLL , she may need a bone marrow biopsy, this was explained to the patient, she was given a dose of Procrit, she may need blood transfusion today, we will also consult oncology that has been following patient for the CLL Reason For Visit: CHRONIC LYMPHOCYTIC LEUKEMIA B CELL TYPE NOT Physical Exam Vital Signs: Temp Pulse Resp BP Pulse Ox 98.2 F 76 16 134/92 H 99 07/15/17 11:42 07/15/17 11:42 07/15/17 11:42 07/15/17 11:42 07/15/17 11:42 Intake & Output 07/14/17 07/15/17 07/16/17 06:59 06:59 06:59 Intake Total 2959 3882 Balance 2959 3882 Weight 54.7 kg 56.3 kg General appearance: PRESENT: no acute distress Eye exam: PRESENT: PERRLA Respiratory exam: PRESENT: clear to auscultation sendy Cardiovascular exam: PRESENT: +S1, +S2 GI/Abdominal exam: PRESENT: soft Neurological exam: PRESENT: alert Results Laboratory Results: 07/14/17 15:50 07/14/17 15:50 07/14/17 07/14/17 07/14/17 14:20 14:20 15:46 WBC 4.9 RBC 2.27 L Hgb 7.3 L Hct 21.9 L MCV 97 MCH 32.1 MCHC 33.3 RDW 16.2 H Plt Count 55 L Seg Neutrophils % Lymphocytes % Monocytes % Eosinophils % Basophils % Absolute Neutrophils Absolute Lymphocytes Absolute Monocytes Absolute Eosinophils Absolute Basophils Retic Count (auto) Absolute Retic Sodium 143.4 Potassium 4.3 Chloride 108 H Carbon Dioxide 22 Anion Gap 13 BUN 15 Creatinine 1.82 H Est GFR ( Amer) 33 L Est GFR (Non-Af Amer) 28 L Glucose 137 H Calcium 8.5 Iron TIBC % Saturation Ferritin Vitamin B12 Folate Urine Color STRAW Urine Appearance CLEAR Urine pH 6.0 Ur Specific [place] 1.004 Urine Protein NEGATIVE Urine Glucose (UA) NEGATIVE Urine Ketones NEGATIVE Urine Blood NEGATIVE Urine Nitrite NEGATIVE Ur Leukocyte Esterase NEGATIVE Urine WBC (Auto) 0 07/14/17 07/14/17 07/14/17 15:50 15:50 15:50 WBC 4.6 RBC 2.35 L Hgb 7.5 L Hct 22.5 L MCV 96 MCH 31.9 MCHC 33.3 RDW 16.3 H Plt Count 56 L Seg Neutrophils % Not Reportable Lymphocytes % Not Reportable Monocytes % Not Reportable Eosinophils % Not Reportable Basophils % Not Reportable Absolute Neutrophils Not Reportable Absolute Lymphocytes Not Reportable Absolute Monocytes Not Reportable Absolute Eosinophils Not Reportable Absolute Basophils Not Reportable Retic Count (auto) 0.21 L Absolute Retic 0.005 L Sodium 141.9 Potassium 4.5 Chloride 108 H Carbon Dioxide 24 Anion Gap 10 BUN 15 Creatinine 1.79 H Est GFR ( Amer) 34 L Est GFR (Non-Af Amer) 28 L Glucose 91 Calcium 8.6 Iron TIBC % Saturation Ferritin Vitamin B12 Folate Urine Color Urine Appearance Urine pH Ur Specific [place] Urine Protein Urine Glucose (UA) Urine Ketones Urine Blood Urine Nitrite Ur Leukocyte Esterase Urine WBC (Auto) 07/14/17 07/14/17 07/15/17 15:50 23:45 01:07 WBC RBC Hgb Hct MCV MCH MCHC RDW Plt Count Seg Neutrophils % Lymphocytes % Monocytes % Eosinophils % Basophils % Absolute Neutrophils Absolute Lymphocytes Absolute Monocytes Absolute Eosinophils Absolute Basophils Retic Count (auto) Cancelled 0.20 L Absolute Retic Cancelled 0.004 L Sodium Potassium Chloride Carbon Dioxide Anion Gap BUN Creatinine Est GFR ( Amer) Est GFR (Non-Af Amer) Glucose Calcium Iron 155.3 TIBC 243 L % Saturation 64 Ferritin 1080.00 H Vitamin B12 > 1000.0 H Folate 6.87 Urine Color Urine Appearance Urine pH Ur Specific [place] Urine Protein Urine Glucose (UA) Urine Ketones Urine Blood Urine Nitrite Ur Leukocyte Esterase Urine WBC (Auto) 07/12/17 17:18 Troponin I 0.053 Impressions: Chest X-Ray 07/12/17 09:20 IMPRESSION: BASILAR ATELECTASIS/ SCARRING. NO ACUTE RADIOGRAPHIC FINDING IN THE CHEST. Assessment & Plan - Diagnosis (1) Paroxysmal atrial fibrillation Is this a current diagnosis for this admission?: Yes (2) Acute kidney injury Is this a current diagnosis for this admission?: Yes (3) MRSA (methicillin resistant staphylococcus aureus) pneumonia Qualifiers: Laterality: unspecified laterality Lung location: unspecified part of lung Qualified Code(s): J15.212 - Pneumonia due to Methicillin resistant Staphylococcus aureus Is this a current diagnosis for this admission?: Yes (4) Proteus pneumonia Is this a current diagnosis for this admission?: Yes (5) Anemia Qualifiers: Anemia type: other cause Other causes of anemia: other cause, not classified Qualified Code(s): D64.89 - Other specified anemias Is this a current diagnosis for this admission?: Yes (6) Thrombocytopenia Is this a current diagnosis for this admission?: Yes (7) Myelosuppression Is this a current diagnosis for this admission?: Yes Plan: The reticulocyte count is low in the setting of low platelet count and low hemoglobin, this suggests myelosuppression, may need bone marrow biopsy, history of CLL
[2017-07-15 14:50] LABS: ALANINE AMINOTRANSFERASE 22 U/L (9-52); ALKALINE PHOSPHATASE 65 U/L (38-126); ANION GAP 8 (5-19); ASPARTATE AMINO TRANSFERASE 15 U/L (14-36); BILIRUBIN,DIRECT 0.1 mg/dL (0.0-0.4); BILIRUBIN,TOTAL 0.5 mg/dL (0.2-1.3); BLOOD UREA NITROGEN 13 mg/dL (7-20); CALCIUM 8.7 mg/dL (8.4-10.2); CARBON DIOXIDE 25 mmol/L (22-30); CHLORIDE 109 mmol/L (98-107); GLUCOSE 71 mg/dL (75-110); POTASSIUM 4.8 mmol/L (3.6-5.0); SODIUM 141.5 mmol/L (137-145); TOTAL PROTEIN 5.3 g/dL (6.3-8.2)
[2017-07-15 14:55] LABS: HEMATOCRIT 20.9 % (36.0-47.0); MEAN CORPUSCULAR HEMOGLOBIN 32.3 pg (27.0-33.4); MEAN CORPUSCULAR HGB CONC 33.6 g/dL (32.0-36.0); MEAN CORPUSCULAR VOLUME 96 fl (80-97); RED BLOOD COUNT 2.18 10^6/uL (3.72-5.28); WHITE BLOOD COUNT 4.8 10^3/uL (4.0-10.5)
[2017-07-15 15:10] LABS: PLATELET COUNT 48 10^3/uL (150-450)
[2017-07-15 15:14] LABS: ABSOLUTE LYMPHOCYTES# (MANUAL) 2.8 10^3/uL (0.5-4.7); ABSOLUTE NEUTROPHILS# (MANUAL) 1.7 10^3/uL (1.7-8.2); BAND NEUTROPHILS % (MANUAL) 4 % (3-5); BASOPHILS % (MANUAL) 1 % (0-2); EOSINOPHILS % (MANUAL) 5 % (0-6); LYMPHOCYTES % (MANUAL) 57 % (13-45); MONOCYTES % (MANUAL) 1 % (3-13); SEGMENTED NEUTROPHILS % (MAN) 31 % (42-78); TOTAL CELLS COUNTED 100
[2017-07-15 15:23] LABS: TOXIC GRANULATION SLIGHT; TOXIC VACUOLATION PRESENT
[2017-07-15 15:24] LABS: ANISOCYTOSIS SLIGHT; HOWELL-JOLLY BODIES PRESENT; OVALOCYTES 1+; PLATELET COMMENT DECREASED; TARGET CELLS SLIGHT
[2017-07-15] MEDS ORDERED: NORMAL SALINE 250 ML IV PRN ×2 (16:40)
[2017-07-15] MEDS: MONTELUKAST SODIUM 10 MG TABLET PO SCH (22:05)
[2017-07-16] MEDS: ACETAMINOPHEN 325 MG TABLET PO PRN (02:23)
[2017-07-16 09:49] LABS: HEMATOCRIT 33.4 % (36.0-47.0); MEAN CORPUSCULAR HEMOGLOBIN 31.4 pg (27.0-33.4); RED BLOOD COUNT 3.62 10^6/uL (3.72-5.28); RED CELL DISTRIBUTION WIDTH 15.5 % (11.5-14.0); WHITE BLOOD COUNT 3.9 10^3/uL (4.0-10.5)
[2017-07-16 09:51] LABS: MEAN CORPUSCULAR VOLUME 92 fl (80-97)
[2017-07-16 09:52] LABS: HEMOGLOBIN 11.4 g/dL (12.0-15.5)
[2017-07-16 09:53] LABS: INTERNATIONAL RATION (INR) 0.83; PARTIAL THROMBOPLASTIN TIME 29.7 SEC (23.5-35.8); PROTHROMBIN TIME 12.1 SEC (11.4-15.4)
[2017-07-16 09:54] LABS: PLATELET COUNT 147 10^3/uL (150-450)
[2017-07-16 10:08] LABS: ALANINE AMINOTRANSFERASE 19 U/L (9-52); ALBUMIN 3.8 g/dL (3.5-5.0); ALKALINE PHOSPHATASE 79 U/L (38-126); ANION GAP 10 (5-19); ASPARTATE AMINO TRANSFERASE 19 U/L (14-36); BILIRUBIN,DIRECT 0.4 mg/dL (0.0-0.4); BILIRUBIN,TOTAL 0.7 mg/dL (0.2-1.3); BLOOD UREA NITROGEN 13 mg/dL (7-20); CALCIUM 9.4 mg/dL (8.4-10.2); CARBON DIOXIDE 30 mmol/L (22-30); CHLORIDE 105 mmol/L (98-107); GLUCOSE 75 mg/dL (75-110); POTASSIUM 4.9 mmol/L (3.6-5.0); SODIUM 145.1 mmol/L (137-145); TOTAL PROTEIN 6.5 g/dL (6.3-8.2)
[2017-07-16 10:18] LABS: ABSOLUTE LYMPHOCYTES# (MANUAL) 2.2 10^3/uL (0.5-4.7); ABSOLUTE MONOCYTES # (MANUAL) 0.4 10^3/uL (0.1-1.4); ABSOLUTE NEUTROPHILS# (MANUAL) 1.1 10^3/uL (1.7-8.2); BASOPHILS % (MANUAL) 0 % (0-2); EOSINOPHILS % (MANUAL) 5 % (0-6); LYMPHOCYTES % (MANUAL) 53 % (13-45); MONOCYTES % (MANUAL) 11 % (3-13); SEGMENTED NEUTROPHILS % (MAN) 28 % (42-78); TOTAL CELLS COUNTED 100
[2017-07-16 10:19] LABS: ANISOCYTOSIS SLIGHT; PLATELET COMMENT ADEQUATE
[2017-07-16] MEDS: DILTIAZEM HCL 120 MG CAP.SR.24H PO SCH ×2 (10:44→21:26)
[2017-07-16] MEDS: METOPROLOL SUCCINATE 50 MG TAB.SR.24H PO SCH (10:44)
[2017-07-16] MEDS: LINEZOLID 600 MG TABLET PO SCH ×2 (10:45→21:24)
[2017-07-16] MEDS: LEVOFLOXACIN 750 MG TABLET PO SCH (17:40)
--- NOTE | 2017-07-16 18:55 | PDOC PROGRESS REPORT ---
Subjective Progress Note for:: 07/16/17 Subjective:: Patient seems to be doing better with gradual improvement. Pt is denying any chest arm or neck discomfort. Patient denying any PND, orthopnea. Patient denied any sustained palpitations, dizziness, syncope, near syncope. Patient denying any fever chills. Patient denying any other significant discomfort. Patient is maintaining sinus rhythm. Patient tolerating Cardizem and beta- thomas both together. Patient has been noted to have drop in hemoglobin for which Eliquis has been stopped. Dr. Tristan aware of this. Today he has requested oncology consult and patient is being prepared for Review of systems: Rest review of systems negative. Medications: Medications have been reviewed. Reason For Visit: CHRONIC LYMPHOCYTIC LEUKEMIA B CELL TYPE NOT Physical Exam Vital Signs: Temp Pulse Resp BP Pulse Ox 98.0 F 72 16 133/77 H 95 07/16/17 15:39 07/16/17 15:39 07/16/17 15:39 07/16/17 15:39 07/16/17 15:39 Intake & Output 07/15/17 07/16/17 07/17/17 06:59 06:59 06:59 Intake Total 3882 5069 2050 Balance 3882 5069 2050 Weight 56.3 kg Exam: GENERAL: well-nourished and in no acute distress. Alert and oriented x3 HEAD: Atraumatic, normocephalic. EYES: Pupils equal round and reactive to light, extraocular movements intact, sclera anicteric, conjunctiva are normal. ENT: TMs normal, nares patent, oropharynx clear without exudates. Moist mucous membranes. No oral ulcerations or bleeding gums noted NECK: supple without lymphadenopathy. Trachea is central. No cervical or axillary lymphadenopathy noted. Carotids are 2+, JVD WNL LUNGS: Respiration seems nonlabored, no significant accessory muscle action noted. Breath sounds clear to auscultation bilaterally and equal noted. No wheezes rales or rhonchi noted. No significant dullness noted on percussion. CHEST: Palpation of the chest wall shows no significant chest wall tenderness. No other significant abnormalities noted. 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 ABDOMEN: Soft, no significant tenderness appreciated, normoactive bowel sounds. No guarding, no rebound. No rigidity noted . No masses appreciated. EXTREMITIES: Pedal pulses are 1-2+, no calf tenderness noted. No clubbing or cyanosis.trace to 1+ pedal edema noted NEUROLOGICAL: Focused neurological exam showed no significant neurologic deficit. Normal speech, no focal weakness appreciated. PSYCH: Normal mood, normal affect. Judgment and insight within normal limits. SKIN: No significant ecchymosis, rash, ulcerations or signs of pruritus noted. MUSCULOSKELETAL EXAM: No significant joint swelling noted. Results Laboratory Results: 07/16/17 09:23 07/16/17 09:23 07/14/17 07/15/17 07/16/17 18:11 17:10 09:23 WBC 3.9 L RBC 3.62 L Hgb 11.4 L D Hct 33.4 L MCV 92 D MCH 31.4 MCHC 34.0 RDW 15.5 H Plt Count 147 L D Seg Neutrophils % Not Reportable Lymphocytes % Not Reportable Monocytes % Not Reportable Eosinophils % Not Reportable Basophils % Not Reportable Absolute Neutrophils Not Reportable Absolute Lymphocytes Not Reportable Absolute Monocytes Not Reportable Absolute Eosinophils Not Reportable Absolute Basophils Not Reportable Sodium Potassium Chloride Carbon Dioxide Anion Gap BUN Creatinine Est GFR ( Amer) Est GFR (Non-Af Amer) Glucose Calcium Transferrin 132 L Total Bilirubin AST ALT Alkaline Phosphatase Total Protein Albumin Blood Type B POSITIVE Antibody Screen NEGATIVE 07/16/17 09:23 WBC RBC Hgb Hct MCV MCH MCHC RDW Plt Count Seg Neutrophils % Lymphocytes % Monocytes % Eosinophils % Basophils % Absolute Neutrophils Absolute Lymphocytes Absolute Monocytes Absolute Eosinophils Absolute Basophils Sodium 145.1 H Potassium 4.9 Chloride 105 Carbon Dioxide 30 Anion Gap 10 BUN 13 Creatinine 1.95 H Est GFR ( Amer) 31 L Est GFR (Non-Af Amer) 25 L Glucose 75 Calcium 9.4 Transferrin Total Bilirubin 0.7 AST 19 ALT 19 Alkaline Phosphatase 79 Total Protein 6.5 Albumin 3.8 Blood Type Antibody Screen 07/12/17 17:18 Troponin I 0.053 EKG Comments: Sinus rhythm no sustained tachycardia or bradycardia arrhythmias noted Impressions: Chest X-Ray 07/12/17 09:20 IMPRESSION: BASILAR ATELECTASIS/ SCARRING. NO ACUTE RADIOGRAPHIC FINDING IN THE CHEST. Assessment & Plan - Diagnosis (1) Atrial fibrillation with rapid ventricular response Is this a current diagnosis for this admission?: Yes (2) Chronic lymphocytic leukemia B-cell type not having achieved remission Is this a current diagnosis for this admission?: Yes (3) Essential hypertension Is this a current diagnosis for this admission?: Yes (4) Anemia Qualifiers: Anemia type: other cause Other causes of anemia: other cause, not classified Qualified Code(s): D64.89 - Other specified anemias Is this a current diagnosis for this admission?: Yes - Notes Notes: Paroxysmal atrial fibrillation with rapid ventricular response: Patient is maintaining sinus rhythm. Patient does respond nicely to Cardizem. Continue Cardizem patient is currently on Eliquis at 2.5 mg p.o. twice daily which I feel is the right dose. Patient would benefit from very close observation for any bleeding complications. Continue metoprolol succinate at 75 mg a day. Chronic lymphocytic leukemia: Patient being managed by oncologist. I believe he may have some input regarding chronic anticoagulation. Will take his input. Hypertension: Currently stable. Continue Cardizem and metoprolol succinate at current dose. This is for both rate control and blood pressure elevation. Patient has been stable from cardiac standpoint. Will sign off. Please reconsult if needed. Patient can follow with me for cardiology services if needed. - Time Time with patient: 15-25 minutes - CODE STATUS was discussed, patient remains full code. Surrogate decision-maker unchanged. Multiple medical problems were addressed. More than 50% of the time spent coordinating care, discussing management plans with involved caregivers. Management plans discussed with involved personnels. Medical decision making was of moderate to high complexity , patient's has multiple comorbidities. Medications reviewed and adjusted accordingly: Yes
[2017-07-16] MEDS ORDERED: LANSOPRAZOLE 30 MG TAB.RAP.DR PO ONE (20:30)
[2017-07-16] MEDS ORDERED: LACTOBACILLUS ACIDOPHILUS 250 MG TAB PO ONE (20:30)
[2017-07-16] MEDS ORDERED: BENZONATATE 100 MG CAPSULE PO ONE (21:00)
[2017-07-16] MEDS: HYDROCODONE/ACETAMINOPHEN 10-325 MG TABLET PO PRN (21:27)
[2017-07-16] MEDS: MONTELUKAST SODIUM 10 MG TABLET PO SCH (21:27)
[2017-07-16] MEDS: NORMAL SALINE 1000 ML 1,000 ML IV PRN (21:28)
--- NOTE | 2017-07-16 21:32 | PDOC PROGRESS REPORT ---
Subjective Progress Note for:: 07/16/17 Subjective:: She was seen by the bedside, she was transfused with red blood cells and platelets, the platelet in anticipation of bone marrow biopsy.She has diarrhea, persistent cough Reason For Visit: CHRONIC LYMPHOCYTIC LEUKEMIA B CELL TYPE NOT Physical Exam Vital Signs: Temp Pulse Resp BP Pulse Ox 97.8 F 77 16 135/86 H 96 07/16/17 19:34 07/16/17 19:34 07/16/17 19:34 07/16/17 19:34 07/16/17 19:34 Intake & Output 07/15/17 07/16/17 07/17/17 06:59 06:59 06:59 Intake Total 3882 5069 2050 Balance 3882 5069 2050 Weight 56.3 kg Head exam: PRESENT: atraumatic, normocephalic Eye exam: PRESENT: conjunctiva pink, EOMI, PERRLA Ear exam: PRESENT: normal external ear exam Mouth exam: PRESENT: moist, tongue midline Neck exam: PRESENT: full ROM Respiratory exam: PRESENT: clear to auscultation sendy, rales Cardiovascular exam: PRESENT: RRR, +S1, +S2 Pulses: PRESENT: normal dorsalis pedis pul, +2 pedal pulses bilateral Vascular exam: PRESENT: normal capillary refill GI/Abdominal exam: PRESENT: normal bowel sounds, soft Rectal exam: PRESENT: deferred Neurological exam: PRESENT: alert. ABSENT: motor sensory deficit Psychiatric exam: ABSENT: homicidal ideation, suicidal ideation Skin exam: PRESENT: dry, intact, warm. ABSENT: cyanosis, rash Results Laboratory Results: 07/16/17 09:23 07/16/17 09:23 07/14/17 07/15/17 07/16/17 18:11 17:10 09:23 WBC 3.9 L RBC 3.62 L Hgb 11.4 L D Hct 33.4 L MCV 92 D MCH 31.4 MCHC 34.0 RDW 15.5 H Plt Count 147 L D Seg Neutrophils % Not Reportable Lymphocytes % Not Reportable Monocytes % Not Reportable Eosinophils % Not Reportable Basophils % Not Reportable Absolute Neutrophils Not Reportable Absolute Lymphocytes Not Reportable Absolute Monocytes Not Reportable Absolute Eosinophils Not Reportable Absolute Basophils Not Reportable Sodium Potassium Chloride Carbon Dioxide Anion Gap BUN Creatinine Est GFR ( Amer) Est GFR (Non-Af Amer) Glucose Calcium Transferrin 132 L Total Bilirubin AST ALT Alkaline Phosphatase Total Protein Albumin Blood Type B POSITIVE Antibody Screen NEGATIVE 07/16/17 09:23 WBC RBC Hgb Hct MCV MCH MCHC RDW Plt Count Seg Neutrophils % Lymphocytes % Monocytes % Eosinophils % Basophils % Absolute Neutrophils Absolute Lymphocytes Absolute Monocytes Absolute Eosinophils Absolute Basophils Sodium 145.1 H Potassium 4.9 Chloride 105 Carbon Dioxide 30 Anion Gap 10 BUN 13 Creatinine 1.95 H Est GFR ( Amer) 31 L Est GFR (Non-Af Amer) 25 L Glucose 75 Calcium 9.4 Transferrin Total Bilirubin 0.7 AST 19 ALT 19 Alkaline Phosphatase 79 Total Protein 6.5 Albumin 3.8 Blood Type Antibody Screen 07/12/17 17:18 Troponin I 0.053 Impressions: Chest X-Ray 07/12/17 09:20 IMPRESSION: BASILAR ATELECTASIS/ SCARRING. NO ACUTE RADIOGRAPHIC FINDING IN THE CHEST. Assessment & Plan - Diagnosis (1) Paroxysmal atrial fibrillation Is this a current diagnosis for this admission?: Yes (2) Acute kidney injury Is this a current diagnosis for this admission?: Yes (3) MRSA (methicillin resistant staphylococcus aureus) pneumonia Qualifiers: Laterality: unspecified laterality Lung location: unspecified part of lung Qualified Code(s): J15.212 - Pneumonia due to Methicillin resistant Staphylococcus aureus Is this a current diagnosis for this admission?: Yes (4) Proteus pneumonia Is this a current diagnosis for this admission?: Yes (5) Anemia Qualifiers: Anemia type: other cause Other causes of anemia: other cause, not classified Qualified Code(s): D64.89 - Other specified anemias Is this a current diagnosis for this admission?: Yes (6) Thrombocytopenia Is this a current diagnosis for this admission?: Yes (7) Myelosuppression Is this a current diagnosis for this admission?: Yes (8) Diarrhea Qualifiers: Diarrhea type: presumed infectious Qualified Code(s): R19.7 - Diarrhea, unspecified Is this a current diagnosis for this admission?: Yes Plan: Stool for C. difficile toxin
[2017-07-17] MEDS: HYDROCODONE/ACETAMINOPHEN 10-325 MG TABLET PO PRN ×2 (05:29→20:03)
[2017-07-17] MEDS: BENZONATATE 100 MG CAPSULE PO SCH ×3 (05:29→22:48)
[2017-07-17] MEDS: LANSOPRAZOLE 30 MG TAB.RAP.DR PO SCH ×2 (05:29→18:10)
[2017-07-17] MEDS ORDERED: MIDAZOLAM 2 MG/2 ML INJ ONE (09:00)
[2017-07-17] MEDS ORDERED: FENTANYL CITRATE INJ/PF 100 MCG/2 ML AMPUL ONE (09:01)
[2017-07-17] MEDS: LACTOBACILLUS ACIDOPHILUS 250 MG TAB PO SCH ×2 (10:18→18:14)
[2017-07-17] MEDS: LINEZOLID 600 MG TABLET PO SCH ×2 (10:18→22:49)
[2017-07-17] MEDS: METOPROLOL SUCCINATE 50 MG TAB.SR.24H PO SCH (10:19)
[2017-07-17] MEDS: DILTIAZEM HCL 120 MG CAP.SR.24H PO SCH ×2 (10:19→22:49)
[2017-07-17] MEDS: ACETAMINOPHEN 325 MG TABLET PO PRN (10:34)
[2017-07-17] MEDS: NORMAL SALINE 1000 ML 1,000 ML IV PRN ×2 (11:02→20:02)
--- NOTE | 2017-07-17 11:48 | RADIOLOGY REPORT (SQ) ---
EXAM DESCRIPTION: CT BIOPSY BONE MARROW, NEEDLE COMPLETED DATE/TIME: 07/17/2017 9:49 am REASON FOR STUDY: suspect myelosuppression ,low platelet,low hemoglo COMPARISON: PET-CT 06/05/2017 TECHNIQUE: CT guided biopsy of the right posterior iliac crest bone marrow performed with conscious sedation. CT Fluoroscopy Time: 3.[address] scanners at this facility use dose modulation, iterative reconstruction, and/or weight based d osing when appropriate to reduce radiation dose to as low as reasonably achievable (ALARA). [facility]: Dose Right [facility]: CareDose [facility]: Dose Right [facility]: Teradose 4D [facility]: [facility] RADIATION DOSE: CT Rad equipment meets quality standard of care and radiation dose reduction techni ques were employed. CTDIvol: 4.0 - 10.7 mGy. DLP: 267 mGy-cm.mGy. FINDINGS: The procedure was discussed with the patient and the patient agreed to the procedure. Prio r to the procedure, a time out was performed to verify the patient's identity and planned procedure. IV sedation was administered and physician direction by the registered nurse using 1 milligrams of Ve rsed and 75 micrograms of fentanyl. Physiologic monitoring was provided before, during, and after sed ation. The total sedation time was 30 minutes. Documentation face to face time, the performing proceduralist, spent monitoring the patient: 15 minut es . Noncontrast CT scanning was performed to localize the percutaneous site for the biopsy approach. After sterile skin prep and local lidocaine for skin and deep tissue anesthesia, a 14 gauge bone biop sy needle was used to obtain multiple cores of tissue. Claudia from cytology received the specimens . There were no immediate post procedure or post sedation complications. Pathology is pending at the time of dictation. IMPRESSION: CT GUIDED BIOPSY OF THE RIGHT POSTERIOR ILIAC CREST BONE MARROW PERFORMED WITHOUT IMMEDI ATE COMPLICATION. PATHOLOGY PENDING. COMMENT: Quality ID [id number]: Final reports for procedures using fluoroscopy that document radiation exp osure indices, or exposure time and number of fluorographic images (if radiation exposure indices are not available) Patient medication list reviewed: Yes- Quality ID# [id number]:Eligible professional attests to documenting i n the medical record they obtained, updated, or reviewed the patient's current medications.. TECHNICAL DOCUMENTATION: JOB ID: [id number] Quality ID# [id number]: Final reports with documentation of one or more dose reduction techniques (e.g., Aut omated exposure control, adjustment of the mA and/or kV according to patient size, use of iterative r econstruction technique) 2010 [id number]- All Rights Reserved
[2017-07-17 15:13] LABS: HEMATOCRIT 29.6 % (36.0-47.0); HEMOGLOBIN 10.3 g/dL (12.0-15.5); MEAN CORPUSCULAR HEMOGLOBIN 32.2 pg (27.0-33.4); MEAN CORPUSCULAR HGB CONC 34.9 g/dL (32.0-36.0); MEAN CORPUSCULAR VOLUME 92 fl (80-97); RED CELL DISTRIBUTION WIDTH 15.7 % (11.5-14.0); WHITE BLOOD COUNT 4.7 10^3/uL (4.0-10.5)
[2017-07-17 15:29] LABS: ALANINE AMINOTRANSFERASE 22 U/L (9-52); ALBUMIN 3.3 g/dL (3.5-5.0); ALKALINE PHOSPHATASE 67 U/L (38-126); ANION GAP 9 (5-19); ASPARTATE AMINO TRANSFERASE 15 U/L (14-36); BILIRUBIN,DIRECT 0.4 mg/dL (0.0-0.4); BILIRUBIN,TOTAL 0.5 mg/dL (0.2-1.3); BLOOD UREA NITROGEN 13 mg/dL (7-20); CALCIUM 7.9 mg/dL (8.4-10.2); CARBON DIOXIDE 29 mmol/L (22-30); CHLORIDE 104 mmol/L (98-107); GLUCOSE 86 mg/dL (75-110); POTASSIUM 3.4 mmol/L (3.6-5.0); SODIUM 142.3 mmol/L (137-145); TOTAL PROTEIN 5.6 g/dL (6.3-8.2)
[2017-07-17 15:45] LABS: ABSOLUTE LYMPHOCYTES# (MANUAL) 2.5 10^3/uL (0.5-4.7); ABSOLUTE MONOCYTES # (MANUAL) 0.4 10^3/uL (0.1-1.4); ABSOLUTE NEUTROPHILS# (MANUAL) 1.6 10^3/uL (1.7-8.2); BASOPHILS % (MANUAL) 1 % (0-2); EOSINOPHILS % (MANUAL) 3 % (0-6); LYMPHOCYTES % (MANUAL) 54 % (13-45); MONOCYTES % (MANUAL) 8 % (3-13); SEGMENTED NEUTROPHILS % (MAN) 34 % (42-78); TOTAL CELLS COUNTED 100
[2017-07-17 15:47] LABS: ANISOCYTOSIS SLIGHT; OVALOCYTES SLIGHT; PLATELET COMMENT DECREASED; PLATELET LARGE PRESENT
[2017-07-17 15:48] LABS: POIKILOCYTOSIS 1+; TARGET CELLS 1+
[2017-07-17 15:49] LABS: PLATELET COUNT 88 10^3/uL (150-450)
--- NOTE | 2017-07-17 22:26 | PDOC PROGRESS REPORT ---
Subjective Progress Note for:: 07/17/17 Subjective:: She had bone marrow biopsy done, she was transfused with platelets for the proposed of the bone marrow biopsy awaiting results Reason For Visit: CHRONIC LYMPHOCYTIC LEUKEMIA B CELL TYPE NOT Physical Exam Vital Signs: Temp Pulse Resp BP Pulse Ox 97.6 F 74 22 H 139/65 H 94 07/17/17 20:15 07/17/17 20:15 07/17/17 20:15 07/17/17 20:15 07/17/17 20:15 Intake & Output 07/16/17 07/17/17 07/18/17 06:59 06:59 06:59 Intake Total 5069 3250 1397 Output Total 500 600 Balance 5069 2750 797 General appearance: PRESENT: no acute distress Eye exam: PRESENT: PERRLA Respiratory exam: PRESENT: clear to auscultation sendy Cardiovascular exam: PRESENT: +S1, +S2 GI/Abdominal exam: PRESENT: soft Neurological exam: PRESENT: alert Results Laboratory Results: 07/17/17 14:55 07/17/17 14:55 07/17/17 07/17/17 14:55 14:55 WBC 4.7 RBC 3.20 L Hgb 10.3 L Hct 29.6 L MCV 92 MCH 32.2 MCHC 34.9 RDW 15.7 H Plt Count 88 L Seg Neutrophils % Not Reportable Lymphocytes % Not Reportable Monocytes % Not Reportable Eosinophils % Not Reportable Basophils % Not Reportable Absolute Neutrophils Not Reportable Absolute Lymphocytes Not Reportable Absolute Monocytes Not Reportable Absolute Eosinophils Not Reportable Absolute Basophils Not Reportable Sodium 142.3 Potassium 3.4 L Chloride 104 Carbon Dioxide 29 Anion Gap 9 BUN 13 Creatinine 1.83 H Est GFR ( Amer) 33 L Est GFR (Non-Af Amer) 27 L Glucose 86 Calcium 7.9 L Total Bilirubin 0.5 AST 15 ALT 22 Alkaline Phosphatase 67 Total Protein 5.6 L Albumin 3.3 L 07/12/17 12:03 Blood Blood Culture - Final NO GROWTH IN 5 DAYS 07/12/17 17:18 Troponin I 0.053 Impressions: Chest X-Ray 07/12/17 09:20 IMPRESSION: BASILAR ATELECTASIS/ SCARRING. NO ACUTE RADIOGRAPHIC FINDING IN THE CHEST. Bone Marrow Biopsy w/ CT 07/17/17 00:00 IMPRESSION: CT GUIDED BIOPSY OF THE RIGHT POSTERIOR ILIAC CREST BONE MARROW PERFORMED WITHOUT IMMEDIATE COMPLICATION. PATHOLOGY PENDING. Assessment & Plan - Diagnosis (1) Paroxysmal atrial fibrillation Is this a current diagnosis for this admission?: Yes (2) Acute kidney injury Is this a current diagnosis for this admission?: Yes (3) MRSA (methicillin resistant staphylococcus aureus) pneumonia Qualifiers: Laterality: unspecified laterality Lung location: unspecified part of lung Qualified Code(s): J15.212 - Pneumonia due to Methicillin resistant Staphylococcus aureus Is this a current diagnosis for this admission?: Yes (4) Proteus pneumonia Is this a current diagnosis for this admission?: Yes (5) Anemia Qualifiers: Anemia type: other cause Other causes of anemia: other cause, not classified Qualified Code(s): D64.89 - Other specified anemias Is this a current diagnosis for this admission?: Yes (6) Thrombocytopenia Is this a current diagnosis for this admission?: Yes (7) Myelosuppression Is this a current diagnosis for this admission?: Yes (8) Diarrhea Qualifiers: Diarrhea type: presumed infectious Qualified Code(s): R19.7 - Diarrhea, unspecified Is this a current diagnosis for this admission?: Yes
[2017-07-17] MEDS: MONTELUKAST SODIUM 10 MG TABLET PO SCH (22:50)
[2017-07-18] MEDS: HYDROCODONE/ACETAMINOPHEN 10-325 MG TABLET PO PRN ×2 (03:53→19:59)
[2017-07-18] MEDS: BENZONATATE 100 MG CAPSULE PO SCH ×3 (06:37→22:34)
[2017-07-18] MEDS: LANSOPRAZOLE 30 MG TAB.RAP.DR PO SCH ×2 (06:37→17:27)
[2017-07-18] MEDS: ONDANSETRON 4 MG TAB.RAPDIS PO PRN (10:36)
[2017-07-18] MEDS: DILTIAZEM HCL 120 MG CAP.SR.24H PO SCH ×2 (11:19→22:35)
[2017-07-18] MEDS: METOPROLOL SUCCINATE 50 MG TAB.SR.24H PO SCH (11:19)
[2017-07-18] MEDS: LACTOBACILLUS ACIDOPHILUS 250 MG TAB PO SCH ×2 (11:20→17:27)
[2017-07-18] MEDS: LINEZOLID 600 MG TABLET PO SCH ×2 (11:58→22:34)
[2017-07-18] MEDS: LEVOFLOXACIN 750 MG TABLET PO SCH (17:27)
--- NOTE | 2017-07-18 17:50 | PDOC PROGRESS REPORT ---
Subjective Progress Note for:: 07/18/17 Subjective:: Patient is seen by the bedside, discussed with family, patient's son from [place] about patient's condition Reason For Visit: CHRONIC LYMPHOCYTIC LEUKEMIA B CELL TYPE NOT Physical Exam Vital Signs: Temp Pulse Resp BP Pulse Ox 98.8 F 72 17 111/54 L 100 07/18/17 16:56 07/18/17 16:56 07/18/17 16:56 07/18/17 16:56 07/18/17 16:56 Intake & Output 07/17/17 07/18/17 07/19/17 06:59 06:59 06:59 Intake Total 3250 2797 350 Output Total 500 600 Balance 2750 2197 350 Weight 53.9 kg General appearance: PRESENT: no acute distress Head exam: PRESENT: atraumatic, normocephalic Eye exam: ABSENT: scleral icterus Ear exam: PRESENT: normal external ear exam Mouth exam: PRESENT: moist, tongue midline Neck exam: PRESENT: full ROM Respiratory exam: PRESENT: clear to auscultation sendy Cardiovascular exam: PRESENT: RRR, +S1, +S2 Pulses: PRESENT: normal dorsalis pedis pul, +2 pedal pulses bilateral Vascular exam: PRESENT: normal capillary refill GI/Abdominal exam: PRESENT: normal bowel sounds, soft Rectal exam: PRESENT: deferred Neurological exam: PRESENT: alert, awake, oriented to person, oriented to place , oriented to time, oriented to situation, CN II-XII grossly intact Psychiatric exam: PRESENT: appropriate affect, normal mood. ABSENT: homicidal ideation, suicidal ideation Skin exam: PRESENT: dry, intact, warm. ABSENT: cyanosis, rash Results Laboratory Results: 07/17/17 14:55 07/17/17 14:55 07/12/17 17:18 Troponin I 0.053 Impressions: Chest X-Ray 07/12/17 09:20 IMPRESSION: BASILAR ATELECTASIS/ SCARRING. NO ACUTE RADIOGRAPHIC FINDING IN THE CHEST. Bone Marrow Biopsy w/ CT 07/17/17 00:00 IMPRESSION: CT GUIDED BIOPSY OF THE RIGHT POSTERIOR ILIAC CREST BONE MARROW PERFORMED WITHOUT IMMEDIATE COMPLICATION. PATHOLOGY PENDING. Assessment & Plan - Diagnosis (1) Paroxysmal atrial fibrillation Is this a current diagnosis for this admission?: Yes (2) Acute kidney injury Is this a current diagnosis for this admission?: Yes (3) MRSA (methicillin resistant staphylococcus aureus) pneumonia Qualifiers: Laterality: unspecified laterality Lung location: unspecified part of lung Qualified Code(s): J15.212 - Pneumonia due to Methicillin resistant Staphylococcus aureus Is this a current diagnosis for this admission?: Yes (4) Proteus pneumonia Is this a current diagnosis for this admission?: Yes (5) Anemia Qualifiers: Anemia type: other cause Other causes of anemia: other cause, not classified Qualified Code(s): D64.89 - Other specified anemias Is this a current diagnosis for this admission?: Yes (6) Thrombocytopenia Is this a current diagnosis for this admission?: Yes (7) Myelosuppression Is this a current diagnosis for this admission?: Yes (8) Diarrhea Qualifiers: Diarrhea type: presumed infectious Qualified Code(s): R19.7 - Diarrhea, unspecified Is this a current diagnosis for this admission?: Yes
[2017-07-18] MEDS: MONTELUKAST SODIUM 10 MG TABLET PO SCH (22:35)
[2017-07-19] MEDS: HYDROCODONE/ACETAMINOPHEN 10-325 MG TABLET PO PRN (03:53)
[2017-07-19] MEDS: BENZONATATE 100 MG CAPSULE PO SCH ×3 (06:25→21:18)
[2017-07-19] MEDS: LANSOPRAZOLE 30 MG TAB.RAP.DR PO SCH ×2 (06:25→17:54)
[2017-07-19 08:55] LABS: HEMATOCRIT 29.5 % (36.0-47.0); HEMOGLOBIN 10.3 g/dL (12.0-15.5); MEAN CORPUSCULAR HGB CONC 34.8 g/dL (32.0-36.0); MEAN CORPUSCULAR VOLUME 92 fl (80-97); RED BLOOD COUNT 3.21 10^6/uL (3.72-5.28); RED CELL DISTRIBUTION WIDTH 15.3 % (11.5-14.0); WHITE BLOOD COUNT 4.9 10^3/uL (4.0-10.5)
[2017-07-19 08:57] LABS: PLATELET COUNT 45 10^3/uL (150-450)
[2017-07-19 09:10] LABS: ALANINE AMINOTRANSFERASE 23 U/L (9-52); ALBUMIN 3.1 g/dL (3.5-5.0); ALKALINE PHOSPHATASE 68 U/L (38-126); ANION GAP 13 (5-19); ASPARTATE AMINO TRANSFERASE 13 U/L (14-36); BILIRUBIN,DIRECT 0.2 mg/dL (0.0-0.4); BILIRUBIN,TOTAL 0.5 mg/dL (0.2-1.3); BLOOD UREA NITROGEN 12 mg/dL (7-20); CALCIUM 7.5 mg/dL (8.4-10.2); CARBON DIOXIDE 24 mmol/L (22-30); CHLORIDE 104 mmol/L (98-107); GLUCOSE 67 mg/dL (75-110); SODIUM 140.7 mmol/L (137-145); TOTAL PROTEIN 5.4 g/dL (6.3-8.2)
[2017-07-19 09:22] LABS: ABSOLUTE LYMPHOCYTES# (MANUAL) 2.9 10^3/uL (0.5-4.7); ABSOLUTE MONOCYTES # (MANUAL) 0.3 10^3/uL (0.1-1.4); ABSOLUTE NEUTROPHILS# (MANUAL) 1.6 10^3/uL (1.7-8.2); BAND NEUTROPHILS % (MANUAL) 5 % (3-5); BASOPHILS % (MANUAL) 0 % (0-2); EOSINOPHILS % (MANUAL) 2 % (0-6); LYMPHOCYTES % (MANUAL) 59 % (13-45); METAMYELOCYTES % (MANUAL) 3 % (0); MONOCYTES % (MANUAL) 6 % (3-13); SEGMENTED NEUTROPHILS % (MAN) 25 % (42-78); TOTAL CELLS COUNTED 100
[2017-07-19 09:27] LABS: TOXIC GRANULATION 1+; TOXIC VACUOLATION PRESENT
[2017-07-19 09:28] LABS: ANISOCYTOSIS SLIGHT; OVALOCYTES SLIGHT; PLATELET COMMENT DECREASED; PLATELET LARGE PRESENT; POIKILOCYTOSIS 1+; TARGET CELLS SLIGHT
[2017-07-19] MEDS: DILTIAZEM HCL 120 MG CAP.SR.24H PO SCH ×2 (09:28→21:18)
[2017-07-19] MEDS: LACTOBACILLUS ACIDOPHILUS 250 MG TAB PO SCH ×2 (09:28→17:53)
[2017-07-19] MEDS: METOPROLOL SUCCINATE 50 MG TAB.SR.24H PO SCH (09:29)
[2017-07-19] MEDS: LINEZOLID 600 MG TABLET PO SCH ×2 (09:29→21:18)
[2017-07-19] MEDS: NORMAL SALINE 1000 ML 1,000 ML IV PRN (09:30)
[2017-07-19] MEDS: POTASSIUM CHLORIDE 10 MEQ TABLET.SA PO SCH ×3 (11:10→17:54)
[2017-07-19] MEDS: ACETAMINOPHEN 325 MG TABLET PO PRN (13:18)
[2017-07-19] MEDS: ONDANSETRON 4 MG TAB.RAPDIS PO PRN (13:19)
--- NOTE | 2017-07-19 20:53 | PDOC PROGRESS REPORT ---
Subjective Progress Note for:: 07/19/17 Subjective:: She was seen by the bedside status post bone marrow biopsy Reason For Visit: CHRONIC LYMPHOCYTIC LEUKEMIA B CELL TYPE NOT Physical Exam Vital Signs: Temp Pulse Resp BP Pulse Ox 97.9 F 72 17 119/68 97 07/19/17 20:09 07/19/17 20:09 07/19/17 20:09 07/19/17 20:09 07/19/17 20:09 Intake & Output 07/18/17 07/19/17 07/20/17 06:59 06:59 06:59 Intake Total 2797 3608 1170 Output Total 600 100 4 Balance 2197 3508 1166 Weight 53.9 kg 54.7 kg General appearance: PRESENT: no acute distress Eye exam: PRESENT: PERRLA Respiratory exam: PRESENT: clear to auscultation sendy Cardiovascular exam: PRESENT: +S1, +S2 GI/Abdominal exam: PRESENT: soft Results Laboratory Results: 07/19/17 08:25 07/19/17 08:25 07/19/17 07/19/17 08:25 08:25 WBC 4.9 RBC 3.21 L Hgb 10.3 L Hct 29.5 L MCV 92 MCH 32.0 MCHC 34.8 RDW 15.3 H Plt Count 45 L Seg Neutrophils % Not Reportable Lymphocytes % Not Reportable Monocytes % Not Reportable Eosinophils % Not Reportable Basophils % Not Reportable Absolute Neutrophils Not Reportable Absolute Lymphocytes Not Reportable Absolute Monocytes Not Reportable Absolute Eosinophils Not Reportable Absolute Basophils Not Reportable Sodium 140.7 Potassium 3.0 L* Chloride 104 Carbon Dioxide 24 Anion Gap 13 BUN 12 Creatinine 1.84 H Est GFR ( Amer) 33 L Est GFR (Non-Af Amer) 27 L Glucose 67 L Calcium 7.5 L Total Bilirubin 0.5 AST 13 L ALT 23 Alkaline Phosphatase 68 Total Protein 5.4 L Albumin 3.1 L 07/12/17 17:18 Troponin I 0.053 Impressions: Chest X-Ray 07/12/17 09:20 IMPRESSION: BASILAR ATELECTASIS/ SCARRING. NO ACUTE RADIOGRAPHIC FINDING IN THE CHEST. Bone Marrow Biopsy w/ CT 07/17/17 00:00 IMPRESSION: CT GUIDED BIOPSY OF THE RIGHT POSTERIOR ILIAC CREST BONE MARROW PERFORMED WITHOUT IMMEDIATE COMPLICATION. PATHOLOGY PENDING. Assessment & Plan - Diagnosis (1) Paroxysmal atrial fibrillation Is this a current diagnosis for this admission?: Yes (2) Acute kidney injury Is this a current diagnosis for this admission?: Yes (3) MRSA (methicillin resistant staphylococcus aureus) pneumonia Qualifiers: Laterality: unspecified laterality Lung location: unspecified part of lung Qualified Code(s): J15.212 - Pneumonia due to Methicillin resistant Staphylococcus aureus Is this a current diagnosis for this admission?: Yes (4) Proteus pneumonia Is this a current diagnosis for this admission?: Yes (5) Anemia Qualifiers: Anemia type: other cause Other causes of anemia: other cause, not classified Qualified Code(s): D64.89 - Other specified anemias Is this a current diagnosis for this admission?: Yes (6) Thrombocytopenia Is this a current diagnosis for this admission?: Yes (7) Myelosuppression Is this a current diagnosis for this admission?: Yes (8) Diarrhea Qualifiers: Diarrhea type: presumed infectious Qualified Code(s): R19.7 - Diarrhea, unspecified Is this a current diagnosis for this admission?: Yes
[2017-07-19] MEDS: MONTELUKAST SODIUM 10 MG TABLET PO SCH (21:18)
[2017-07-20] MEDS: NORMAL SALINE 1000 ML 1,000 ML IV PRN ×2 (00:37→11:45)
[2017-07-20] MEDS: LANSOPRAZOLE 30 MG TAB.RAP.DR PO SCH ×2 (05:14→16:27)
[2017-07-20] MEDS: BENZONATATE 100 MG CAPSULE PO SCH ×3 (05:14→22:39)
[2017-07-20] MEDS: LINEZOLID 600 MG TABLET PO SCH ×2 (09:36→22:39)
[2017-07-20] MEDS: METOPROLOL SUCCINATE 50 MG TAB.SR.24H PO SCH (09:37)
[2017-07-20] MEDS: DILTIAZEM HCL 120 MG CAP.SR.24H PO SCH ×2 (09:38→22:39)
[2017-07-20] MEDS: LACTOBACILLUS ACIDOPHILUS 250 MG TAB PO SCH ×2 (09:38→18:37)
[2017-07-20 12:35] LABS: PATH REVIEW PATHOLOGIST REVIEWED
[2017-07-20] MEDS: LEVOFLOXACIN 750 MG TABLET PO SCH (18:37)
[2017-07-20 19:28] LABS: HEMATOCRIT 28.8 % (36.0-47.0); HEMOGLOBIN 9.9 g/dL (12.0-15.5); MEAN CORPUSCULAR HEMOGLOBIN 32.1 pg (27.0-33.4); MEAN CORPUSCULAR HGB CONC 34.5 g/dL (32.0-36.0); MEAN CORPUSCULAR VOLUME 93 fl (80-97); RED CELL DISTRIBUTION WIDTH 15.4 % (11.5-14.0); WHITE BLOOD COUNT 5.1 10^3/uL (4.0-10.5)
[2017-07-20 19:47] LABS: ALANINE AMINOTRANSFERASE 20 U/L (9-52); ALBUMIN 3.1 g/dL (3.5-5.0); ALKALINE PHOSPHATASE 72 U/L (38-126); ANION GAP 8 (5-19); ASPARTATE AMINO TRANSFERASE 13 U/L (14-36); BILIRUBIN,DIRECT 0.3 mg/dL (0.0-0.4); BILIRUBIN,TOTAL 0.6 mg/dL (0.2-1.3); BLOOD UREA NITROGEN 12 mg/dL (7-20); CALCIUM 7.8 mg/dL (8.4-10.2); CARBON DIOXIDE 26 mmol/L (22-30); CHLORIDE 105 mmol/L (98-107); GLUCOSE 72 mg/dL (75-110); POTASSIUM 4.2 mmol/L (3.6-5.0); SODIUM 139.3 mmol/L (137-145); TOTAL PROTEIN 5.4 g/dL (6.3-8.2)
[2017-07-20 20:07] LABS: EOSINOPHILS % (MANUAL) 2 % (0-6); TOTAL CELLS COUNTED 100
[2017-07-20 20:10] LABS: POIKILOCYTOSIS SLIGHT; TARGET CELLS SLIGHT; TEAR DROP CELLS SLIGHT
[2017-07-20 20:12] LABS: OVALOCYTES SLIGHT; PLATELET COMMENT DECREASED
[2017-07-20 20:14] LABS: PLATELET COUNT 27 10^3/uL (150-450)
--- NOTE | 2017-07-20 21:40 | PDOC PROGRESS REPORT ---
Subjective Progress Note for:: 07/20/17 Subjective:: She was seen by the bedside status post bone marrow biopsy Reason For Visit: CHRONIC LYMPHOCYTIC LEUKEMIA B CELL TYPE NOT Physical Exam Vital Signs: Temp Pulse Resp BP Pulse Ox 98.0 F 72 18 122/64 97 07/20/17 12:40 07/20/17 14:00 07/20/17 12:40 07/20/17 12:40 07/20/17 12:40 Intake & Output 07/19/17 07/20/17 07/21/17 06:59 06:59 06:59 Intake Total 3608 2571 1725 Output Total 100 154 Balance 3508 2417 1725 Weight 54.7 kg 54.9 kg General appearance: PRESENT: no acute distress Eye exam: PRESENT: PERRLA Respiratory exam: PRESENT: clear to auscultation sendy Cardiovascular exam: PRESENT: +S1, +S2 GI/Abdominal exam: PRESENT: soft Neurological exam: PRESENT: alert, CN II-XII grossly intact Results Laboratory Results: 07/20/17 19:00 07/20/17 19:00 07/20/17 07/20/17 19:00 19:00 WBC 5.1 RBC 3.10 L Hgb 9.9 L Hct 28.8 L MCV 93 MCH 32.1 MCHC 34.5 RDW 15.4 H Plt Count 27 L* Seg Neutrophils % Not Reportable Lymphocytes % Not Reportable Monocytes % Not Reportable Eosinophils % Not Reportable Basophils % Not Reportable Absolute Neutrophils Not Reportable Absolute Lymphocytes Not Reportable Absolute Monocytes Not Reportable Absolute Eosinophils Not Reportable Absolute Basophils Not Reportable Sodium 139.3 Potassium 4.2 Chloride 105 Carbon Dioxide 26 Anion Gap 8 BUN 12 Creatinine 1.75 H Est GFR ( Amer) 35 L Est GFR (Non-Af Amer) 29 L Glucose 72 L Calcium 7.8 L Total Bilirubin 0.6 AST 13 L ALT 20 Alkaline Phosphatase 72 Total Protein 5.4 L Albumin 3.1 L 07/12/17 17:18 Troponin I 0.053 Impressions: Chest X-Ray 07/12/17 09:20 IMPRESSION: BASILAR ATELECTASIS/ SCARRING. NO ACUTE RADIOGRAPHIC FINDING IN THE CHEST. Bone Marrow Biopsy w/ CT 07/17/17 00:00 IMPRESSION: CT GUIDED BIOPSY OF THE RIGHT POSTERIOR ILIAC CREST BONE MARROW PERFORMED WITHOUT IMMEDIATE COMPLICATION. PATHOLOGY PENDING. Assessment & Plan - Diagnosis (1) Paroxysmal atrial fibrillation Is this a current diagnosis for this admission?: Yes (2) Acute kidney injury Is this a current diagnosis for this admission?: Yes (3) MRSA (methicillin resistant staphylococcus aureus) pneumonia Qualifiers: Laterality: unspecified laterality Lung location: unspecified part of lung Qualified Code(s): J15.212 - Pneumonia due to Methicillin resistant Staphylococcus aureus Is this a current diagnosis for this admission?: Yes (4) Proteus pneumonia Is this a current diagnosis for this admission?: Yes (5) Anemia Qualifiers: Anemia type: other cause Other causes of anemia: other cause, not classified Qualified Code(s): D64.89 - Other specified anemias Is this a current diagnosis for this admission?: Yes (6) Thrombocytopenia Is this a current diagnosis for this admission?: Yes (7) Myelosuppression Is this a current diagnosis for this admission?: Yes (8) Diarrhea Qualifiers: Diarrhea type: presumed infectious Qualified Code(s): R19.7 - Diarrhea, unspecified Is this a current diagnosis for this admission?: Yes
[2017-07-20] MEDS: MONTELUKAST SODIUM 10 MG TABLET PO SCH (22:39)
[2017-07-21] MEDS: ACETAMINOPHEN 325 MG TABLET PO PRN (01:18)
[2017-07-21] MEDS: LANSOPRAZOLE 30 MG TAB.RAP.DR PO SCH ×2 (05:50→17:27)
[2017-07-21] MEDS: BENZONATATE 100 MG CAPSULE PO SCH ×3 (05:50→21:41)
[2017-07-21] MEDS: METOPROLOL SUCCINATE 50 MG TAB.SR.24H PO SCH (09:23)
[2017-07-21] MEDS: LACTOBACILLUS ACIDOPHILUS 250 MG TAB PO SCH ×2 (09:23→17:27)
[2017-07-21] MEDS: DILTIAZEM HCL 120 MG CAP.SR.24H PO SCH ×2 (09:24→21:41)
[2017-07-21] MEDS: ONDANSETRON 4 MG TAB.RAPDIS PO PRN (09:24)
[2017-07-21] MEDS: LINEZOLID 600 MG TABLET PO SCH ×2 (09:24→21:41)
--- NOTE | 2017-07-21 11:28 | PDOC PROGRESS REPORT ---
Subjective Progress Note for:: 07/21/17 Subjective:: It is complaining of stomach upset this morning after giving Zofran get all resolved Patient denied any chest pain denied any shortness of the breath Since denied any blood in the stool denied any black stools and no nosebleed Received the 1 unit of bag of platelet yesterday was platelet count was 27 Reason For Visit: CHRONIC LYMPHOCYTIC LEUKEMIA B CELL TYPE NOT Physical Exam Vital Signs: Temp Pulse Resp BP Pulse Ox 98.0 F 75 20 124/71 93 07/21/17 05:48 07/21/17 07:00 07/21/17 05:48 07/21/17 05:48 07/21/17 05:48 Intake & Output 07/20/17 07/21/17 07/22/17 06:59 06:59 06:59 Intake Total 2571 3654 Output Total 154 Balance 2417 3654 Weight 54.9 kg 54 kg General appearance: PRESENT: no acute distress, well-developed, well-nourished Head exam: PRESENT: atraumatic, normocephalic Eye exam: PRESENT: conjunctiva pink, EOMI, PERRLA. ABSENT: scleral icterus Ear exam: PRESENT: normal external ear exam Mouth exam: PRESENT: moist, tongue midline Neck exam: PRESENT: full ROM. ABSENT: carotid bruit, JVD, lymphadenopathy, thyromegaly Respiratory exam: PRESENT: clear to auscultation sendy Cardiovascular exam: PRESENT: RRR. ABSENT: diastolic murmur, rubs, systolic murmur Pulses: PRESENT: normal dorsalis pedis pul, +2 pedal pulses bilateral Vascular exam: PRESENT: normal capillary refill GI/Abdominal exam: PRESENT: normal bowel sounds, soft. ABSENT: distended, guarding, mass, organolmegaly, rebound, tenderness Rectal exam: PRESENT: deferred Extremities exam: ABSENT: pedal edema Neurological exam: PRESENT: alert, awake, oriented to person, oriented to place , oriented to time, oriented to situation, CN II-XII grossly intact. ABSENT: motor sensory deficit Psychiatric exam: PRESENT: appropriate affect, normal mood. ABSENT: homicidal ideation, suicidal ideation Skin exam: PRESENT: dry, intact, warm. ABSENT: cyanosis, rash Results Laboratory Results: 07/20/17 19:00 07/20/17 19:00 07/20/17 07/20/17 07/20/17 19:00 19:00 21:00 WBC 5.1 RBC 3.10 L Hgb 9.9 L Hct 28.8 L MCV 93 MCH 32.1 MCHC 34.5 RDW 15.4 H Plt Count 27 L* Seg Neutrophils % Not Reportable Lymphocytes % Not Reportable Monocytes % Not Reportable Eosinophils % Not Reportable Basophils % Not Reportable Absolute Neutrophils Not Reportable Absolute Lymphocytes Not Reportable Absolute Monocytes Not Reportable Absolute Eosinophils Not Reportable Absolute Basophils Not Reportable Sodium 139.3 Potassium 4.2 Chloride 105 Carbon Dioxide 26 Anion Gap 8 BUN 12 Creatinine 1.75 H Est GFR ( Amer) 35 L Est GFR (Non-Af Amer) 29 L Glucose 72 L Calcium 7.8 L Total Bilirubin 0.6 AST 13 L ALT 20 Alkaline Phosphatase 72 Total Protein 5.4 L Albumin 3.1 L Blood Type B POSITIVE 07/12/17 17:18 Troponin I 0.053 Impressions: Chest X-Ray 07/12/17 09:20 IMPRESSION: BASILAR ATELECTASIS/ SCARRING. NO ACUTE RADIOGRAPHIC FINDING IN THE CHEST. Bone Marrow Biopsy w/ CT 07/17/17 00:00 IMPRESSION: CT GUIDED BIOPSY OF THE RIGHT POSTERIOR ILIAC CREST BONE MARROW PERFORMED WITHOUT IMMEDIATE COMPLICATION. PATHOLOGY PENDING. Assessment & Plan - Diagnosis (1) Acute kidney injury Is this a current diagnosis for this admission?: Yes (2) Anemia Qualifiers: Anemia type: other cause Other causes of anemia: other cause, not classified Qualified Code(s): D64.89 - Other specified anemias Is this a current diagnosis for this admission?: Yes (3) Chronic lymphocytic leukemia B-cell type not having achieved remission Is this a current diagnosis for this admission?: Yes (4) Diarrhea Qualifiers: Diarrhea type: presumed infectious Qualified Code(s): R19.7 - Diarrhea, unspecified Is this a current diagnosis for this admission?: Yes (5) Myelosuppression Is this a current diagnosis for this admission?: Yes (6) Thrombocytopenia Is this a current diagnosis for this admission?: Yes (7) Essential hypertension Is this a current diagnosis for this admission?: Yes - Time Time Spent with patient: 15-24 minutes Medications reviewed and adjusted accordingly: Yes Anticipated discharge: Other Within: Other - Inpatient Certification Medical Necessity: Need Close Monitoring Due to Risk of Patient Decompensation, Need For IV Fluids, Need for IV Antibiotics Post Hospital Care: D/C 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
[2017-07-21] MEDS: NORMAL SALINE 1000 ML 1,000 ML IV PRN (12:04)
[2017-07-21] MEDS: MONTELUKAST SODIUM 10 MG TABLET PO SCH (21:41)
[2017-07-22] MEDS: BENZONATATE 100 MG CAPSULE PO SCH ×3 (06:38→21:44)
[2017-07-22] MEDS: LANSOPRAZOLE 30 MG TAB.RAP.DR PO SCH ×2 (06:38→17:03)
[2017-07-22] MEDS: LACTOBACILLUS ACIDOPHILUS 250 MG TAB PO SCH ×2 (09:31→17:03)
[2017-07-22] MEDS: DILTIAZEM HCL 120 MG CAP.SR.24H PO SCH ×2 (09:32→21:45)
[2017-07-22] MEDS: LINEZOLID 600 MG TABLET PO SCH ×2 (09:32→21:45)
[2017-07-22] MEDS: METOPROLOL SUCCINATE 50 MG TAB.SR.24H PO SCH (09:32)
[2017-07-22 10:10] LABS: HEMATOCRIT 30.3 % (36.0-47.0); HEMOGLOBIN 10.4 g/dL (12.0-15.5); MEAN CORPUSCULAR HEMOGLOBIN 31.9 pg (27.0-33.4); MEAN CORPUSCULAR HGB CONC 34.4 g/dL (32.0-36.0); MEAN CORPUSCULAR VOLUME 93 fl (80-97); RED BLOOD COUNT 3.26 10^6/uL (3.72-5.28); WHITE BLOOD COUNT 4.8 10^3/uL (4.0-10.5)
[2017-07-22 10:25] LABS: ANION GAP 12 (5-19); BLOOD UREA NITROGEN 11 mg/dL (7-20); CALCIUM 7.9 mg/dL (8.4-10.2); CARBON DIOXIDE 26 mmol/L (22-30); CHLORIDE 107 mmol/L (98-107); GLUCOSE 92 mg/dL (75-110); POTASSIUM 3.3 mmol/L (3.6-5.0); SODIUM 145.1 mmol/L (137-145)
[2017-07-22 10:34] LABS: ABSOLUTE LYMPHOCYTES# (MANUAL) 2.8 10^3/uL (0.5-4.7); ABSOLUTE MONOCYTES # (MANUAL) 0.2 10^3/uL (0.1-1.4); ABSOLUTE NEUTROPHILS# (MANUAL) 1.7 10^3/uL (1.7-8.2); BAND NEUTROPHILS % (MANUAL) 5 % (3-5); BASOPHILS % (MANUAL) 0 % (0-2); EOSINOPHILS % (MANUAL) 3 % (0-6); LYMPHOCYTES % (MANUAL) 57 % (13-45); METAMYELOCYTES % (MANUAL) 1 % (0); MONOCYTES % (MANUAL) 4 % (3-13); SEGMENTED NEUTROPHILS % (MAN) 29 % (42-78); TOTAL CELLS COUNTED 100
[2017-07-22 10:38] LABS: ANISOCYTOSIS 1+; HYPOCHROMASIA SLIGHT; OVALOCYTES SLIGHT; PLATELET COMMENT DECREASED; POIKILOCYTOSIS SLIGHT
[2017-07-22 10:39] LABS: PLATELET COUNT 48 10^3/uL (150-450)
--- NOTE | 2017-07-22 11:58 | PDOC PROGRESS REPORT ---
Subjective Progress Note for:: 07/22/17 Subjective:: She is feeling much better Platelet count is 48 Patient otherwise denied any chest pain denied any shortness of the breath Reason For Visit: CHRONIC LYMPHOCYTIC LEUKEMIA B CELL TYPE NOT Physical Exam Vital Signs: Temp Pulse Resp BP Pulse Ox 98.5 F 80 20 120/57 L 90 L 07/22/17 08:19 07/22/17 08:19 07/22/17 08:19 07/22/17 08:19 07/22/17 08:19 Intake & Output 07/21/17 07/22/17 07/23/17 06:59 06:59 06:59 Intake Total 3654 3310 Output Total 300 Balance 3654 3010 Weight 54 kg 53.7 kg General appearance: PRESENT: no acute distress, well-developed, well-nourished Head exam: PRESENT: atraumatic, normocephalic Eye exam: PRESENT: conjunctiva pink, EOMI, PERRLA. ABSENT: scleral icterus Ear exam: PRESENT: normal external ear exam Mouth exam: PRESENT: moist, tongue midline Neck exam: PRESENT: full ROM. ABSENT: carotid bruit, JVD, lymphadenopathy, thyromegaly Respiratory exam: PRESENT: clear to auscultation sendy Cardiovascular exam: PRESENT: RRR. ABSENT: diastolic murmur, rubs, systolic murmur Pulses: PRESENT: normal dorsalis pedis pul, +2 pedal pulses bilateral Vascular exam: PRESENT: normal capillary refill GI/Abdominal exam: PRESENT: normal bowel sounds, soft. ABSENT: distended, guarding, mass, organolmegaly, rebound, tenderness Rectal exam: PRESENT: deferred Extremities exam: ABSENT: pedal edema Neurological exam: PRESENT: alert, awake, oriented to person, oriented to place , oriented to time, oriented to situation, CN II-XII grossly intact. ABSENT: motor sensory deficit Psychiatric exam: PRESENT: appropriate affect, normal mood. ABSENT: homicidal ideation, suicidal ideation Skin exam: PRESENT: dry, intact, warm. ABSENT: cyanosis, rash Results Laboratory Results: 07/22/17 09:45 07/22/17 09:45 07/22/17 07/22/17 09:45 09:45 WBC 4.8 RBC 3.26 L Hgb 10.4 L Hct 30.3 L MCV 93 MCH 31.9 MCHC 34.4 RDW 16.0 H Plt Count 48 L Seg Neutrophils % Not Reportable Lymphocytes % Not Reportable Monocytes % Not Reportable Eosinophils % Not Reportable Basophils % Not Reportable Absolute Neutrophils Not Reportable Absolute Lymphocytes Not Reportable Absolute Monocytes Not Reportable Absolute Eosinophils Not Reportable Absolute Basophils Not Reportable Sodium 145.1 H Potassium 3.3 L Chloride 107 Carbon Dioxide 26 Anion Gap 12 BUN 11 Creatinine 1.73 H Est GFR ( Amer) 35 L Est GFR (Non-Af Amer) 29 L Glucose 92 Calcium 7.9 L 07/12/17 17:18 Troponin I 0.053 Impressions: Chest X-Ray 07/12/17 09:20 IMPRESSION: BASILAR ATELECTASIS/ SCARRING. NO ACUTE RADIOGRAPHIC FINDING IN THE CHEST. Bone Marrow Biopsy w/ CT 07/17/17 00:00 IMPRESSION: CT GUIDED BIOPSY OF THE RIGHT POSTERIOR ILIAC CREST BONE MARROW PERFORMED WITHOUT IMMEDIATE COMPLICATION. PATHOLOGY PENDING. Assessment & Plan - Diagnosis (1) Acute kidney injury Is this a current diagnosis for this admission?: Yes Plan: Continues to monitor the patient (2) Anemia Qualifiers: Anemia type: other cause Other causes of anemia: other cause, not classified Qualified Code(s): D64.89 - Other specified anemias Is this a current diagnosis for this admission?: Yes Plan: Stable (3) Chronic lymphocytic leukemia B-cell type not having achieved remission Is this a current diagnosis for this admission?: Yes Plan: Oncology (4) Diarrhea Qualifiers: Diarrhea type: presumed infectious Qualified Code(s): R19.7 - Diarrhea, unspecified Is this a current diagnosis for this admission?: Yes (5) Myelosuppression Is this a current diagnosis for this admission?: Yes (6) Thrombocytopenia Is this a current diagnosis for this admission?: Yes Plan: Currently stable with the transfusions (7) Essential hypertension Is this a current diagnosis for this admission?: Yes - Time Time Spent with patient: 15-24 minutes Medications reviewed and adjusted accordingly: Yes Anticipated discharge: Other Within: Other - Inpatient Certification Medical Necessity: Need Close Monitoring Due to Risk of Patient Decompensation 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
[2017-07-22] MEDS ORDERED: POTASSIUM CHLORIDE 10 MEQ TABLET.SA PO ONE (12:00)
[2017-07-22] MEDS: ONDANSETRON 4 MG TAB.RAPDIS PO PRN (14:01)
[2017-07-22] MEDS: ACETAMINOPHEN 325 MG TABLET PO PRN (14:02)
[2017-07-22] MEDS: NORMAL SALINE 1000 ML 1,000 ML IV PRN (14:07)
--- NOTE | 2017-07-22 15:45 | RADIOLOGY REPORT (SQ) ---
EXAM DESCRIPTION: MRI HEAD WITHOUT COMPLETED DATE/TIME: 07/22/2017 3:31 pm REASON FOR STUDY: blurred vision COMPARISON: CT brain 02/24/2017 TECHNIQUE: Multiplanar imaging includes non-contrasted T1, T2, FLAIR, and diffusion with ADC map seq uences. Images stored on PACS. LIMITATIONS: Mild motion artifact. Rapid pulse sequences were used FINDINGS: ANATOMY: No developmental anomalies. Normal vascular flow voids. Pituitary fossa normal. CSF SPACES: Normal in size and contour. No hemorrhage. CEREBRUM: Sulci and gyri normal in size and contour. Minimal age-appropriate increased deep bifronta l and biparietal white matter signal on FLAIR imaging, from age-appropriate small vessel ischemic aiden nge. No evidence of hemorrhage, mass, or extraaxial fluid collection. POSTERIOR FOSSA: No signal alteration. No hemorrhage. No edema, masses or mass effect. Internal norberto tory canals, cerebello-pontine angles, mastoids normal. DIFFUSION IMAGING: Negative for acute or sub-acute infarction. ORBITS: No masses. Globes normal. PARANASAL SINUSES: Lumpy mucous membrane thickening and fluid in the bilateral maxillary, ethmoid, a nd right sphenoid sinuses. Fluid in the bilateral mastoid air cells. OTHER: No other significant finding. IMPRESSION: No acute intracranial changes. Age-appropriate small vessel white matter disease. Infl ammatory changes in the paranasal sinuses EVIDENCE OF ACUTE STROKE: NO. TECHNICAL DOCUMENTATION: JOB ID: [id number] [employer]- All Rights Reserved
[2017-07-22] MEDS: LEVOFLOXACIN 750 MG TABLET PO SCH (17:03)
[2017-07-22] MEDS: MONTELUKAST SODIUM 10 MG TABLET PO SCH (21:43)
[2017-07-22] MEDS: HYDROCODONE/ACETAMINOPHEN 10-325 MG TABLET PO PRN (22:05)
[2017-07-23] MEDS: ONDANSETRON 4 MG TAB.RAPDIS PO PRN ×4 (02:04→20:19)
[2017-07-23] MEDS: LANSOPRAZOLE 30 MG TAB.RAP.DR PO SCH ×2 (05:51→16:02)
[2017-07-23] MEDS: BENZONATATE 100 MG CAPSULE PO SCH ×3 (05:51→21:53)
[2017-07-23 07:29] LABS: ANION GAP 12 (5-19); BLOOD UREA NITROGEN 13 mg/dL (7-20); CALCIUM 7.8 mg/dL (8.4-10.2); CARBON DIOXIDE 25 mmol/L (22-30); CHLORIDE 105 mmol/L (98-107); GLUCOSE 77 mg/dL (75-110); POTASSIUM 3.5 mmol/L (3.6-5.0); SODIUM 142.3 mmol/L (137-145)
[2017-07-23] MEDS: LACTOBACILLUS ACIDOPHILUS 250 MG TAB PO SCH ×2 (10:37→17:28)
[2017-07-23] MEDS: LINEZOLID 600 MG TABLET PO SCH ×2 (10:38→21:53)
[2017-07-23] MEDS: DILTIAZEM HCL 120 MG CAP.SR.24H PO SCH ×2 (10:38→21:53)
[2017-07-23] MEDS: METOPROLOL SUCCINATE 50 MG TAB.SR.24H PO SCH (10:38)
[2017-07-23 15:48] LABS: SEGMENTED NEUTROPHILS % (MAN) 28 % (42-78)
[2017-07-23 15:49] LABS: BAND NEUTROPHILS % (MANUAL) 7 % (3-5); LYMPHOCYTES % (MANUAL) 55 % (13-45); MONOCYTES % (MANUAL) 4 % (3-13)
[2017-07-23 15:50] LABS: METAMYELOCYTES % (MANUAL) 4 % (0)
[2017-07-23 15:52] LABS: ABSOLUTE LYMPHOCYTES# (MANUAL) 2.8 10^3/uL (0.5-4.7)
[2017-07-23 15:53] LABS: ABSOLUTE MONOCYTES # (MANUAL) 0.2 10^3/uL (0.1-1.4)
[2017-07-23 15:55] LABS: TOXIC GRANULATION 2+; TOXIC VACUOLATION PRESENT
[2017-07-23] MEDS: NORMAL SALINE 1000 ML 1,000 ML IV PRN (16:02)
[2017-07-23] MEDS: HYDROCODONE/ACETAMINOPHEN 10-325 MG TABLET PO PRN (21:52)
[2017-07-23] MEDS: MONTELUKAST SODIUM 10 MG TABLET PO SCH (21:53)
--- NOTE | 2017-07-23 22:59 | PDOC PROGRESS REPORT ---
Subjective Progress Note for:: 07/23/17 Subjective:: Patient was seen by the bedside, hopefully discharge tomorrow Reason For Visit: CHRONIC LYMPHOCYTIC LEUKEMIA B CELL TYPE NOT Physical Exam Vital Signs: Temp Pulse Resp BP Pulse Ox 97.4 F 68 16 119/63 98 07/23/17 20:06 07/23/17 20:06 07/23/17 20:06 07/23/17 20:06 07/23/17 20:06 Intake & Output 07/22/17 07/23/17 07/24/17 06:59 06:59 06:59 Intake Total 3310 4092 618 Output Total 300 100 Balance 3010 4092 518 Weight 53.7 kg General appearance: PRESENT: no acute distress Head exam: PRESENT: atraumatic, normocephalic Eye exam: PRESENT: conjunctiva pink, EOMI, PERRLA Neck exam: PRESENT: full ROM Respiratory exam: PRESENT: clear to auscultation sendy Cardiovascular exam: PRESENT: RRR, +S1, +S2 GI/Abdominal exam: PRESENT: normal bowel sounds, soft Rectal exam: PRESENT: deferred Neurological exam: PRESENT: alert Psychiatric exam: PRESENT: appropriate affect Results Laboratory Results: 07/22/17 09:45 07/23/17 06:00 07/23/17 06:00 Sodium 142.3 Potassium 3.5 L Chloride 105 Carbon Dioxide 25 Anion Gap 12 BUN 13 Creatinine 1.71 H Est GFR ( Amer) 36 L Est GFR (Non-Af Amer) 30 L Glucose 77 Calcium 7.8 L 07/12/17 17:18 Troponin I 0.053 Impressions: Chest X-Ray 07/12/17 09:20 IMPRESSION: BASILAR ATELECTASIS/ SCARRING. NO ACUTE RADIOGRAPHIC FINDING IN THE CHEST. Bone Marrow Biopsy w/ CT 07/17/17 00:00 IMPRESSION: CT GUIDED BIOPSY OF THE RIGHT POSTERIOR ILIAC CREST BONE MARROW PERFORMED WITHOUT IMMEDIATE COMPLICATION. PATHOLOGY PENDING. Head MRI 07/22/17 14:40 IMPRESSION: No acute intracranial changes. Age-appropriate small vessel white matter disease. Inflammatory changes in the paranasal sinuses EVIDENCE OF ACUTE STROKE: NO. Assessment & Plan - Diagnosis (1) Paroxysmal atrial fibrillation Is this a current diagnosis for this admission?: Yes (2) Acute kidney injury Is this a current diagnosis for this admission?: Yes (3) MRSA (methicillin resistant staphylococcus aureus) pneumonia Qualifiers: Laterality: unspecified laterality Lung location: unspecified part of lung Qualified Code(s): J15.212 - Pneumonia due to Methicillin resistant Staphylococcus aureus Is this a current diagnosis for this admission?: Yes (4) Proteus pneumonia Is this a current diagnosis for this admission?: Yes (5) Anemia Qualifiers: Anemia type: other cause Other causes of anemia: other cause, not classified Qualified Code(s): D64.89 - Other specified anemias Is this a current diagnosis for this admission?: Yes (6) Thrombocytopenia Is this a current diagnosis for this admission?: Yes (7) Myelosuppression Is this a current diagnosis for this admission?: Yes (8) Diarrhea Qualifiers: Diarrhea type: presumed infectious Qualified Code(s): R19.7 - Diarrhea, unspecified Is this a current diagnosis for this admission?: Yes
[2017-07-24] MEDS: ACETAMINOPHEN 325 MG TABLET PO PRN (00:49)
[2017-07-24 01:49] LABS: HEMATOCRIT 27.4 % (36.0-47.0); HEMOGLOBIN 9.5 g/dL (12.0-15.5); MEAN CORPUSCULAR HGB CONC 34.7 g/dL (32.0-36.0); MEAN CORPUSCULAR VOLUME 92 fl (80-97); RED BLOOD COUNT 2.97 10^6/uL (3.72-5.28); RED CELL DISTRIBUTION WIDTH 15.4 % (11.5-14.0); WHITE BLOOD COUNT 4.8 10^3/uL (4.0-10.5)
[2017-07-24 01:54] LABS: PLATELET COUNT 17 10^3/uL (150-450)
[2017-07-24 02:04] LABS: ALANINE AMINOTRANSFERASE 20 U/L (9-52); ALBUMIN 3.2 g/dL (3.5-5.0); ALKALINE PHOSPHATASE 71 U/L (38-126); ANION GAP 9 (5-19); ASPARTATE AMINO TRANSFERASE 13 U/L (14-36); BILIRUBIN,DIRECT 0.2 mg/dL (0.0-0.4); BILIRUBIN,TOTAL 0.4 mg/dL (0.2-1.3); BLOOD UREA NITROGEN 13 mg/dL (7-20); CALCIUM 7.5 mg/dL (8.4-10.2); CARBON DIOXIDE 27 mmol/L (22-30); CHLORIDE 103 mmol/L (98-107); GLUCOSE 77 mg/dL (75-110); POTASSIUM 3.3 mmol/L (3.6-5.0); SODIUM 139.3 mmol/L (137-145); TOTAL PROTEIN 5.3 g/dL (6.3-8.2)
[2017-07-24 02:27] LABS: ABSOLUTE LYMPHOCYTES# (MANUAL) 3.4 10^3/uL (0.5-4.7); ABSOLUTE MONOCYTES # (MANUAL) 0.2 10^3/uL (0.1-1.4); ABSOLUTE NEUTROPHILS# (MANUAL) 1.1 10^3/uL (1.7-8.2); BAND NEUTROPHILS % (MANUAL) 11 % (3-5); BASOPHILS % (MANUAL) 1 % (0-2); EOSINOPHILS % (MANUAL) 3 % (0-6); LYMPHOCYTES % (MANUAL) 70 % (13-45); MONOCYTES % (MANUAL) 4 % (3-13); MYELOCYTES % (MANUAL) 3 % (0); SEGMENTED NEUTROPHILS % (MAN) 8 % (42-78); TOTAL CELLS COUNTED 100
[2017-07-24 02:41] LABS: TOXIC GRANULATION 1+
[2017-07-24 02:42] LABS: ANISOCYTOSIS 2+; BURR CELLS SLIGHT; HELMET CELLS SLIGHT; HYPOCHROMASIA 1+; OVALOCYTES SLIGHT; POIKILOCYTOSIS 1+
[2017-07-24 02:43] LABS: PLATELET COMMENT DECREASED; PLATELET LARGE PRESENT
[2017-07-24] MEDS: LANSOPRAZOLE 30 MG TAB.RAP.DR PO SCH ×2 (06:30→17:33)
[2017-07-24] MEDS: BENZONATATE 100 MG CAPSULE PO SCH ×2 (06:30→16:47)
[2017-07-24] MEDS: DILTIAZEM HCL 120 MG CAP.SR.24H PO SCH (09:22)
[2017-07-24] MEDS: METOPROLOL SUCCINATE 50 MG TAB.SR.24H PO SCH (09:22)
[2017-07-24] MEDS: LACTOBACILLUS ACIDOPHILUS 250 MG TAB PO SCH ×2 (09:22→17:34)
[2017-07-24] MEDS: LINEZOLID 600 MG TABLET PO SCH (09:23)
[2017-07-24 17:23] VITALS: BP 133/56
--- NOTE | 2017-07-24 17:23 | PDOC DISCHARGE SUMMARY ---
General - Admit/Disc Date/PCP Admission Date/Primary Care Provider: 07/12/17 11:20 ERUM HENAO MD Discharge Date: 07/24/17 - Discharge Diagnosis (1) Paroxysmal atrial fibrillation Is this a current diagnosis for this admission?: Yes (2) Acute kidney injury Is this a current diagnosis for this admission?: Yes (3) MRSA (methicillin resistant staphylococcus aureus) pneumonia Is this a current diagnosis for this admission?: Yes (4) Proteus pneumonia Is this a current diagnosis for this admission?: Yes (5) Anemia Is this a current diagnosis for this admission?: Yes (6) Thrombocytopenia Is this a current diagnosis for this admission?: Yes (7) Myelosuppression Is this a current diagnosis for this admission?: Yes (8) Diarrhea Is this a current diagnosis for this admission?: Yes (9) Chronic lymphocytic leukemia Is this a current diagnosis for this admission?: Yes (10) Mantle cell lymphoma Is this a current diagnosis for this admission?: Yes - Additional Information Resuscitation Status: Full Code Prescriptions: RX: Diltiazem HCl [Cardizem Cd 120 mg Capsule] 120 mg PO Q12 #60 cap.sr.24h Home Medications: RX: Hydrocodone Bit/Acetaminophen [Hydrocodon-Acetaminophn 10-325] 1 tab PO Q8HP PRN 07/12/17 RX: Levofloxacin [Levaquin 750 mg Tablet] 750 mg PO Q48H 07/12/17 RX: Linezolid [Zyvox 600 mg Tablet] 600 mg PO Q12 07/12/17 RX: Metoprolol Succinate [Toprol Xl 50 mg Tab.sr] 75 mg PO DAILY 07/12/17 RX: Montelukast Sodium [Singulair 10 mg Tablet] 10 mg PO QHS 07/12/17 RX: Diltiazem HCl [Cardizem Cd 120 mg Capsule] 120 mg PO Q12 #60 cap.sr.24h 12/03 RX: Hydrocodone/Acetaminophen [Tamarack 10-325 mg Tablet] 1 tab PO Q8HP PRN #0 tablet 07/24/17 History of Present Illness History of Present Illness: JANET ABBOTT is a 71 year old female, she was recently discharged from this hospital on 07/03/2017 when she was diagnosed with MRSA and Proteus pneumonia she had episode of palpitation associated with shortness of breath family called rescue squad, she was found to be in atrial fibrillation, transferred to the emergency room, in the emergency room she was found to be in A. fib, started on Cardizem infusion. She had episode of proximal atrial fibrillation back in April 2017 when she was admitted for pneumonia at that time a 2D echo was done, on April 24, 2017 a 2D echo showed normal-sized left atrium, and normal ejection fraction of left ventricle, grade 2 diastolic dysfunction of left ventricle she was rate controlled with metoprolol she was not given chronic anticoagulation because of a low leatha S2 score at the time. She was supposed to continue Zyvox and Levaquin for 30 days. Hospital Course Hospital Course: Patient was admitted originally for the management of atrial fibrillation with rapid ventricular response. She was on treatment for MRSA pneumonia and Proteus pneumonia with Zyvox and Levaquin. She was seen by Dr. Bloom cardiology for the atrial fibrillation. She was initially treated with anticoagulant, Eliquis but because of the severe thrombocytopenia the Eliquis was discontinued. There was evidence of myelosuppression with severe thrombocytopenia and anemia. A bone marrow biopsy was done, results came back showing leukemia cells, lymphoma cell, mantle lymphoma she received multiple transfusion with blood products including packed red blood cells, platelets. The case was discussed with the oncologist Dr. Barahona, she will be discharged home today to follow with oncology on to discuss plan of care for this patient. Overall prognosis is guarded to poor. She is immunocompromised with many episodes of MRSA pneumonia Physical Exam Vital Signs: Temp Pulse Resp BP Pulse Ox 97.5 F 82 20 128/60 H 96 07/24/17 12:13 07/24/17 14:00 07/24/17 12:13 07/24/17 12:13 07/24/17 12:13 Intake & Output 07/23/17 07/24/17 07/25/17 06:59 06:59 06:59 Intake Total 4092 1868 387 Output Total 500 150 Balance 4092 1368 237 Weight 53.3 kg General appearance: PRESENT: mild distress Eye exam: PRESENT: PERRLA Respiratory exam: PRESENT: clear to auscultation sendy Cardiovascular exam: PRESENT: +S1, +S2 GI/Abdominal exam: PRESENT: soft Neurological exam: PRESENT: alert Results Laboratory Results: 07/24/17 01:15 07/24/17 01:15 07/24/17 07/24/17 01:15 01:15 WBC 4.8 RBC 2.97 L Hgb 9.5 L Hct 27.4 L MCV 92 MCH 32.0 MCHC 34.7 RDW 15.4 H Plt Count 17 L* Seg Neutrophils % Not Reportable Lymphocytes % Not Reportable Monocytes % Not Reportable Eosinophils % Not Reportable Basophils % Not Reportable Absolute Neutrophils Not Reportable Absolute Lymphocytes Not Reportable Absolute Monocytes Not Reportable Absolute Eosinophils Not Reportable Absolute Basophils Not Reportable Sodium 139.3 Potassium 3.3 L Chloride 103 Carbon Dioxide 27 Anion Gap 9 BUN 13 Creatinine 1.65 H Est GFR ( Amer) 37 L Est GFR (Non-Af Amer) 31 L Glucose 77 Calcium 7.5 L Total Bilirubin 0.4 AST 13 L ALT 20 Alkaline Phosphatase 71 Total Protein 5.3 L Albumin 3.2 L 07/12/17 17:18 Troponin I 0.053 Impressions: Chest X-Ray 07/12/17 09:20 IMPRESSION: BASILAR ATELECTASIS/ SCARRING. NO ACUTE RADIOGRAPHIC FINDING IN THE CHEST. Bone Marrow Biopsy w/ CT 07/17/17 00:00 IMPRESSION: CT GUIDED BIOPSY OF THE RIGHT POSTERIOR ILIAC CREST BONE MARROW PERFORMED WITHOUT IMMEDIATE COMPLICATION. PATHOLOGY PENDING. Head MRI 07/22/17 14:40 IMPRESSION: No acute intracranial changes. Age-appropriate small vessel white matter disease. Inflammatory changes in the paranasal sinuses EVIDENCE OF ACUTE STROKE: NO.
[2017-07-24] MEDS: LEVOFLOXACIN 750 MG TABLET PO SCH (17:33)
== END 2017-07-24 18:33 | disposition home or self-care (01) | DRG 308 ==
LOC: ER 08:56 → EH 11:20 → 3S 16:10
PROVIDERS: ADMIT Internal Medicine; ATTEND Internal Medicine
PROC: 30233R1 Transfusion of Nonautologous Platelets into Peripheral Vein, Percutaneous Approach (ICD-10-PCS; principal; 2017-07-15)
PROC: 30233N1 Transfusion of Nonautologous Red Blood Cells into Peripheral Vein, Percutaneous Approach (ICD-10-PCS; 2017-07-15)
PROC: 30233N1 Transfusion of Nonautologous Red Blood Cells into Peripheral Vein, Percutaneous Approach (ICD-10-PCS; 2017-07-16)
PROC: 30233R1 Transfusion of Nonautologous Platelets into Peripheral Vein, Percutaneous Approach (ICD-10-PCS; 2017-07-16)
PROC: 07DR3ZX Extraction of Iliac Bone Marrow, Percutaneous Approach, Diagnostic (ICD-10-PCS; 2017-07-17)
PROC: 30233R1 Transfusion of Nonautologous Platelets into Peripheral Vein, Percutaneous Approach (ICD-10-PCS; 2017-07-21)
DX: I48.0 Paroxysmal atrial fibrillation (principal); J15.212 Pneumonia due to Methicillin resistant Staphylococcus aureus; J15.6 Pneumonia due to other Gram-negative bacteria; C91.10 Chronic lymphocytic leukemia of B-cell type not having achieved remission; N17.9 Acute kidney failure, unspecified; C83.10 Mantle cell lymphoma, unspecified site; I10 Essential (primary) hypertension; R19.7 Diarrhea, unspecified; D75.9 Disease of blood and blood-forming organs, unspecified; D69.6 Thrombocytopenia, unspecified; D64.9 Anemia, unspecified; M19.90 Unspecified osteoarthritis, unspecified site; Z86.14 Personal history of Methicillin resistant Staphylococcus aureus infection; Z79.01 Long term (current) use of anticoagulants
CPT/HCPCS: 36415; 36430; 38221; 70551; 71045; 80048; 80053; 81001; 82306; 82550; 82553; 82570; 82607; 82728; 82746; 83010; 83540; 83550; 84156; 84466; 84484; 85025; 85027; 85045; 85610; 85730; 86850; 86900; 86901; 86920; 87040; 93005; 93010; 93306; 96374; 99291; J0696; J0885; J2020; J2250; J3010; J3480; J3490; J7030; J7050; P9016; P9035; Q4081; S0119

== ENCOUNTER 2017-07-30 09:54 | Outpatient (CLI) | payer MEDICARE, MEDICAID ==
[2017-07-30 11:03] LABS: HEMATOCRIT 26.6 % (36.0-47.0); HEMOGLOBIN 9.5 g/dL (12.0-15.5); MEAN CORPUSCULAR HEMOGLOBIN 32.1 pg (27.0-33.4); MEAN CORPUSCULAR HGB CONC 35.6 g/dL (32.0-36.0); MEAN CORPUSCULAR VOLUME 90 fl (80-97); RED BLOOD COUNT 2.94 10^6/uL (3.72-5.28); RED CELL DISTRIBUTION WIDTH 15.1 % (11.5-14.0); WHITE BLOOD COUNT 3.6 10^3/uL (4.0-10.5)
[2017-07-30] MEDS ORDERED: FUROSEMIDE INJ/PF 20 MG/2 ML SDV IV PRN ×2 (11:45→12:27)
[2017-07-30] MEDS ORDERED: ACETAMINOPHEN 325 MG TABLET PO PRN ×2 (11:45→12:25)
[2017-07-30] MEDS ORDERED: DIPHENHYDRAMINE HCL 25 MG CAPSULE PO PRN ×2 (11:46→12:25)
[2017-07-30] MEDS ORDERED: NORMAL SALINE 1000 ML 1,000 ML IV PRN (11:56)
[2017-07-30 12:07] LABS: PLATELET COUNT 10 10^3/uL (150-450)
[2017-07-30 13:46] VITALS: BP 101/62
== END 2017-07-30 15:46 | disposition home or self-care (01) ==
LOC: II 09:54 → 2S 09:57 → II 15:46
PROVIDERS: ATTEND Internal Medicine Medical Oncology
PROC: 30243R1 Transfusion of Nonautologous Platelets into Central Vein, Percutaneous Approach (ICD-10-PCS; principal; 2017-07-30)
DX: D69.3 Immune thrombocytopenic purpura (principal); D69.6 Thrombocytopenia, unspecified; C91.10 Chronic lymphocytic leukemia of B-cell type not having achieved remission
CPT/HCPCS: 86900; 86901; 36415; 36430; 96374; P9035; J1940

== ENCOUNTER 2017-08-04 00:19 | Inpatient (IN) | payer MEDICARE, MEDICAID ==
[2017-08-04] MEDS ORDERED: ONDANSETRON HCL INJ/PF 4 MG/2 ML SDV IV ONE (01:55)
[2017-08-04] MEDS ORDERED: NORMAL SALINE 500 ML IV ONE ×2 (01:55→04:11)
--- NOTE | 2017-08-04 02:00 | ER Document Report ---
ED General - General Chief Complaint: Weakness Stated Complaint: ABDOMINAL PAIN Time Seen by Provider: 08/04/17 01:40 Notes: Patient is a 72-year-old female presents with complaint of coughing. She has a hurts her chest when she coughs. She also has some abdominal pain is worse on the right side. She also has some nausea and some vomiting. She also has had liver headache. She is felt weak. Patient has history of leukemia. She is followed by Dr. Barahona. She has been chemotherapy but this was stopped in April but she developed a pneumonia. She still currently on antibiotics for the pneumonia. She also has a history of recurrent thrombocytopenia. She just received platelet transfusion on Sunday. She denies any recent bleeding that she is aware of. She is followed by Dr. Tristan as her primary care doctor. She denies any fevers. She has no other complaints at this time. TRAVEL OUTSIDE OF THE [place] IN LAST 30 DAYS: No - Related Data Allergies/Adverse Reactions: No Known Allergies Allergy (Verified 04/19/17 15:46) Past Medical History - Social History Smoking Status: Never Smoker Frequency of alcohol use: None Drug Abuse: None Family History: Hypertension - Past Medical History Cardiac Medical History: Reports: Hx Hypertension Denies: Hx Heart Attack Pulmonary Medical History: Reports: Hx Bronchitis, Hx COPD, Hx Pneumonia Denies: Hx Asthma, Hx Tuberculosis Neurological Medical History: Denies: Hx Cerebrovascular Accident, Hx Seizures Renal/ Medical History: Denies: Hx Peritoneal Dialysis Malignancy Medical History: Reports: Hx Leukemia - chronic lymphocytic leukemia Musculoskeltal Medical History: Reports Hx Arthritis - osteoarthritis Psychiatric Medical History: Denies: Hx Depression Infectious Medical History: Reports: Hx MRSA Past Surgical History: Reports: Hx Abdominal Surgery - spleenectomy. Denies: Hx Bowel Surgery - Immunizations Hx Diphtheria, Pertussis, Tetanus Vaccination: Yes Hx Pneumococcal Vaccination: 08/18/11 Review of Systems - Review of Systems Notes: My Normal Review Basic REVIEW OF SYSTEMS: CONSTITUTIONAL : Denies fever, chills, or sweats. Denies recent illness. EENT: Denies eye, ear, throat, or mouth pain or symptoms. Denies nasal or sinus congestion. CARDIOVASCULAR: Denies chest pain. RESPIRATORY: Denies cough, cold, or chest congestion. Denies shortness of breath, difficulty breathing, or wheezing. GASTROINTESTINAL: Denies abdominal pain. Some vomiting. GENITOURINARY: Denies difficulty urinating, painful urination, burning, frequency, or blood in urine. MUSCULOSKELETAL: Denies neck or back pain or joint pain or swelling. SKIN: Denies rash or skin lesions. NEUROLOGICAL: Denies altered mental status or loss of consciousness. Has a headache. Denies weakness or paralysis or loss of use of either side. Denies problems with gait or speech. Denies sensory or motor loss. ALL OTHER SYSTEMS REVIEWED AND NEGATIVE. Physical Exam - Vital signs Vitals: Temp Pulse Resp BP Pulse Ox 97.7 F 73 20 125/66 95 08/04/17 01:00 08/04/17 01:00 08/04/17 01:00 08/04/17 01:00 08/04/17 01:00 - Notes Notes: General Appearance: Well nourished, alert, cooperative, no acute distress, no obvious discomfort. Vitals: reviewed, See vital signs table. Head: no swelling or tenderness to the head Eyes: PERRL, EOMI, Conjuctiva clear Mouth: No decreasd moisture Lungs: No wheezing, No rales, No rhonci, No accessory muscle use, good air exchange bilaterally. Heart: Normal rate, Regular rythm, No murmur, no rub Abdomen: Normal BS, soft, No rigidity, mild right-sided abdominal tenderness palpation, No guarding, no rebound, Extremities: strength 5/5 in all extremities, good pulses in all extremities, no swelling or tenderness in the extremities, no edema. Skin: warm, dry, appropriate color, no rash Neuro: speech clear, oriented x 3, normal affect, responds appropriately to questions. Cranial nerves II through XII are intact. Distal sensation intact. Patient moves all extremities without difficulty. Course - Re-evaluation Re-evalutation: 08/04/17 04:16 Patient's potassium to come back 6.7. I was going to order redraw however the nurse told me that this was the second drawn that the initial potassium was over 7. Being that her potassium is high on 2 different I suspect that it is real. She does not have any medications currently that she calls elevation or potassium that I can see on her list however she has been receiving multiple transfusions and this may be contributing to why her potassium is high. I have given her insulin glucose. I spoke with Dr. Fragoso who requests that I give her a dose of Kayexalate and he will admit the patient to his service. Patient has not had a bowel movement here. I did order C. difficile testing since patient has been on antibiotics for prolonged period time. She has not yet had a bowel movement. Informed her that Kayexalate might cause some diarrhea and she is understanding of this. Patient is receive IV fluids. Patient will be admitted to Dr. Fragoso. Patient's chest x-ray does show a small right lower lobe pneumonia which she is already on antibiotics for. Dictation of this chart was performed using voice recognition software; therefore, there may be some unintended grammatical errors. 08/04/17 05:12 - Vital Signs Vital signs: Temp Pulse Resp BP Pulse Ox 97.7 F 66 18 156/87 H 96 08/04/17 01:00 08/04/17 03:00 08/04/17 03:00 08/04/17 03:00 08/04/17 03:00 - Laboratory Result Diagrams: 08/04/17 02:45 08/04/17 03:30 Laboratory results interpreted by me: 08/04/17 08/04/17 02:45 03:30 RBC 2.84 L Hgb 8.9 L Hct 25.8 L RDW 15.3 H Plt Count 34 L Seg Neuts % (Manual) 33 L Band Neutrophils % 6 H Lymphocytes % (Manual) 51 H Potassium 6.7 H* Chloride 108 H BUN 36 H Creatinine 1.73 H Est GFR ( Amer) 35 L Est GFR (Non-Af Amer) 29 L AST 12 L Total Protein 6.1 L Albumin 2.8 L Lipase 342.3 H - EKG Interpretation by Me Additional EKG results interpreted by me: 08/04/17 02:46 EKG is reviewed and interpreted by me. EKG shows sinus rhythm with a rate of [address] segment elevation or depression. No ischemic T-wave inversions. [place] interval, QRS duration, QTc intervals are within normal range. Old EKG for comparison is from July 12, 2017. Discharge - Discharge Clinical Impression: Hyperkalemia, Weakness Condition: Stable Disposition: ADMITTED OBSERVATION Admitting Provider: [facility] Admitted: Telemetry
--- NOTE | 2017-08-04 02:30 | RADIOLOGY REPORT (SQ) ---
EXAM DESCRIPTION: CT HEAD WITHOUT CLINICAL HISTORY: 72 years Female, headache COMPARISON: 02/24/2017. MR, 07/22/2017, images only. TECHNIQUE: No contrast. This exam was performed according to our departmental dose-optimization program, which includes automated exposure control, adjustment of the mA and/or kV according to patient size and/or use of iterative reconstruction technique. FINDINGS: No hemorrhage or infarct. No mass, mass effect, or midline shift. Atherosclerosis. Moderate bilateral maxillary mucosal thickening and moderate mucosal occlusion of ethmoid air cells; no air-fluid levels. Partial uncinatectomy/hypoplasia. Brain and extra-axial structures appear intact. IMPRESSION: No acute findings. Chronic pansinusitis.
[2017-08-04 03:04] LABS: APPEARANCE,URINE CLEAR; BILIRUBIN,URINE NEGATIVE (NEGATIVE); COLOR,URINE STRAW; GLUCOSE, URINE NEGATIVE (NEGATIVE); KETONES,URINE NEGATIVE (NEGATIVE); LEUKOCYTE ESTERASE,URINE NEGATIVE (NEGATIVE); NITRITE,URINE NEGATIVE (NEGATIVE); PROTEIN,URINE NEGATIVE (NEGATIVE); URINE SPECIFIC GRAVITY 1.006; UROBILINOGEN,URINE NEGATIVE mg/dL (<2.0)
[2017-08-04 03:14] LABS: HEMATOCRIT 25.8 % (36.0-47.0); HEMOGLOBIN 8.9 g/dL (12.0-15.5); MEAN CORPUSCULAR HEMOGLOBIN 31.5 pg (27.0-33.4); MEAN CORPUSCULAR HGB CONC 34.7 g/dL (32.0-36.0); MEAN CORPUSCULAR VOLUME 91 fl (80-97); PLATELET COUNT 34 10^3/uL (150-450); RED BLOOD COUNT 2.84 10^6/uL (3.72-5.28); RED CELL DISTRIBUTION WIDTH 15.3 % (11.5-14.0); WHITE BLOOD COUNT 6.1 10^3/uL (4.0-10.5)
[2017-08-04 03:55] LABS: ABSOLUTE LYMPHOCYTES# (MANUAL) 3.1 10^3/uL (0.5-4.7); ABSOLUTE MONOCYTES # (MANUAL) 0.6 10^3/uL (0.1-1.4); ABSOLUTE NEUTROPHILS# (MANUAL) 2.4 10^3/uL (1.7-8.2); BAND NEUTROPHILS % (MANUAL) 6 % (3-5); BASOPHILS % (MANUAL) 0 % (0-2); EOSINOPHILS % (MANUAL) 0 % (0-6); LYMPHOCYTES % (MANUAL) 51 % (13-45); MONOCYTES % (MANUAL) 10 % (3-13); NUCLEATED RED BLOOD CELLS 10 /100 WBC (0); SEGMENTED NEUTROPHILS % (MAN) 33 % (42-78); TOTAL CELLS COUNTED 100
[2017-08-04 03:57] LABS: ALANINE AMINOTRANSFERASE 14 U/L (9-52); ALBUMIN 2.8 g/dL (3.5-5.0); ALKALINE PHOSPHATASE 55 U/L (38-126); ANION GAP 10 (5-19); ASPARTATE AMINO TRANSFERASE 12 U/L (14-36); BILIRUBIN,DIRECT 0.4 mg/dL (0.0-0.4); BILIRUBIN,TOTAL 0.8 mg/dL (0.2-1.3); BLOOD UREA NITROGEN 36 mg/dL (7-20); CALCIUM 8.5 mg/dL (8.4-10.2); CARBON DIOXIDE 23 mmol/L (22-30); CHLORIDE 108 mmol/L (98-107); GLUCOSE 92 mg/dL (75-110); LIPASE 342.3 U/L (23-300); SODIUM 141.2 mmol/L (137-145); TOTAL PROTEIN 6.1 g/dL (6.3-8.2)
[2017-08-04 03:58] LABS: TOXIC GRANULATION 1+
[2017-08-04 03:59] LABS: ANISOCYTOSIS SLIGHT; OVALOCYTES SLIGHT; POLYCHROMASIA SLIGHT
[2017-08-04 04:00] LABS: TARGET CELLS SLIGHT
[2017-08-04 04:01] LABS: PLATELET COMMENT DECREASED
[2017-08-04 04:07] LABS: POTASSIUM 6.7 mmol/L (3.6-5.0)
[2017-08-04] MEDS ORDERED: DEXTROSE 50%-WATER 25 GM/50 ML DISP.SYRIN IV ONE (04:10)
[2017-08-04] MEDS ORDERED: INSULIN REG, HUMAN 100 UNIT/ML 3 ML VIAL (PYX) IV ONE (04:10)
[2017-08-04] MEDS ORDERED: CALCIUM GLUCONATE 1000 MG/10 ML INJ IV ONE (04:11)
[2017-08-04] MEDS ORDERED: SODIUM POLYSTYRENE SULFONATE 15 GM/60 ML PO ONE ×2 (04:16→12:00)
--- NOTE | 2017-08-04 04:31 | RADIOLOGY REPORT (SQ) ---
EXAM DESCRIPTION: CHEST SINGLE VIEW CLINICAL HISTORY: 72 years Female, cough COMPARISON: 07/12/2017 NUMBER OF VIEWS/TECHNIQUE: 1/AP LIMITATIONS: None. FINDINGS: New small patchy opacity of the right lower lobe, small streakiness of bilateral lung bases, normal cardiac silhouette, mild scoliotic curvature, right jugular miniport central line tip at the cavoatrial junction. IMPRESSION: Small right lower lobar pneumonia.
--- NOTE | 2017-08-04 09:45 | EKG REPORT ---
SEVERITY:- NORMAL ECG - SINUS RHYTHM : Confirmed by: Ina Bloom 04-Aug-2017 09:44:58
[2017-08-04 10:39] LABS: ANION GAP 8 (5-19); BLOOD UREA NITROGEN 35 mg/dL (7-20); CALCIUM 9.7 mg/dL (8.4-10.2); CARBON DIOXIDE 26 mmol/L (22-30); CHLORIDE 109 mmol/L (98-107); SODIUM 143.3 mmol/L (137-145)
[2017-08-04 10:52] LABS: POTASSIUM 5.6 mmol/L (3.6-5.0)
[2017-08-04 10:53] LABS: GLUCOSE 39 mg/dL (75-110)
[2017-08-04] MEDS ORDERED: LANSOPRAZOLE 30 MG TAB.RAP.DR PO ONE (11:00)
[2017-08-04] MEDS: DEXTROSE 5%-WATER 1000 ML 1,000 ML IV PRN (11:25)
--- NOTE | 2017-08-04 11:41 | PDOC H&P ---
History of Present Illness Admission Date/PCP: 08/04/17 04:37 ERUM HENAO MD History of Present Illness: JANET ABBOTT is a 72 year old female of Dr Henao who presented to the ED with complaint of generalized weakness, coughing, and abdominal pain. She reported no fever or chills. There is slight nausea and vomiting. Her abdominal pain is mostly related to coughing. She reported recent pneumonia and persistent coughing with sputum production. Appetite and po intake remain poor. She received platelet transfusion recently. Patient's initial evaluation in the ED was remarkable for hyperkalemia and renal insufficiency. Patient inform me that she takes 4 tablets total per day at home. She was not able to clarify dosage of each tablet. She is currently off chemotherapy due to her bouts of pneumonia since April,. Her morbidities include Hypertension, COPD, chronic lymphicytic leukemia with pancytopenia and need for blood product transfusion, and splenectomy. Past Medical History Cardiac Medical History: Reports: Hypertension Denies: Myocardial Infarction Pulmonary Medical History: Reports: Bronchitis, Chronic Obstructive Pulmonary Disease (COPD), Pneumonia Denies: Asthma, Tuberculosis Neurological Medical History: Denies: Seizures Malignancy Medical History: Reports: Leukemia - chronic lymphocytic leukemia Musculoskeltal Medical History: Reports: Arthritis - osteoarthritis Psychiatric Medical History: Denies: Depression Hematology: Denies: Anemia Infectious Medical History: Reports: Methicillin-Resistant Staph Aureus Social History Smoking Status: Never Smoker Frequency of Alcohol Use: None Hx Recreational Drug Use: No Drugs: None Hx Prescription Drug Abuse: No - Advance Directive Resuscitation Status: Full Code Family History Family History: Hypertension Parental Family History Reviewed: Yes Children Family History Reviewed: Yes Sibling(s) Family History Reviewed.: Yes Medication/Allergy Home Medications: Diltiazem HCl [Cartia Xt] 120 mg PO Q12 08/04/17 Hydrocodone Bit/Acetaminophen [Hydrocodon-Acetaminophn 10-325] 1 each PO Q8HP PRN 08/04/17 Metoprolol Succinate [Toprol Xl 50 mg Tab.sr] 75 mg PO DAILY 08/04/17 Montelukast Sodium [Singulair 10 mg Tablet] 10 mg PO QHS 08/04/17 Omeprazole 40 mg PO DAILY 08/04/17 Allergies/Adverse Reactions: No Known Allergies Allergy (Verified 04/19/17 15:46) Review of Systems Constitutional: PRESENT: fatigue, weakness Respiratory: PRESENT: cough Gastrointestinal: PRESENT: nausea, vomiting Neurological: PRESENT: weakness - generalized. ABSENT: focal weakness Physical Exam Vital Signs: Temp Pulse Resp BP Pulse Ox 97.5 F 69 19 129/75 H 98 08/04/17 05:38 08/04/17 06:00 08/04/17 09:36 08/04/17 09:36 08/04/17 09:36 General appearance: PRESENT: no acute distress Head exam: PRESENT: atraumatic, normocephalic Eye exam: PRESENT: conjunctiva pink, EOMI, PERRLA. ABSENT: scleral icterus Mouth exam: PRESENT: moist - fairly Respiratory exam: PRESENT: clear to auscultation sendy Cardiovascular exam: PRESENT: RRR. ABSENT: diastolic murmur, rubs, systolic murmur Pulses: PRESENT: normal dorsalis pedis pul, +2 pedal pulses bilateral Vascular exam: PRESENT: normal capillary refill. ABSENT: pallor GI/Abdominal exam: PRESENT: normal bowel sounds, soft. ABSENT: distended, guarding, mass, organolmegaly, rebound, tenderness Rectal exam: PRESENT: deferred Extremities exam: ABSENT: pedal edema Musculoskeletal exam: PRESENT: normal inspection Neurological exam: PRESENT: alert, awake, oriented to person, oriented to place , oriented to time, oriented to situation, CN II-XII grossly intact. ABSENT: motor sensory deficit Psychiatric exam: PRESENT: appropriate affect, normal mood. ABSENT: homicidal ideation, suicidal ideation Skin exam: PRESENT: dry, intact, warm. ABSENT: cyanosis, rash Results Laboratory Results: 08/04/17 09:40 08/04/17 08/04/17 09:40 09:40 Sodium Cancelled 143.3 Potassium Cancelled 5.6 H D Chloride Cancelled 109 H Carbon Dioxide Cancelled 26 Anion Gap Cancelled 8 BUN Cancelled 35 H Creatinine Cancelled 1.82 H Est GFR ( Amer) Cancelled 33 L Est GFR (Non-Af Amer) Cancelled 27 L Glucose Cancelled 39 L* Calcium Cancelled 9.7 Total Bilirubin Cancelled AST Cancelled ALT Cancelled Alkaline Phosphatase Cancelled Total Protein Cancelled Albumin Cancelled Impressions: Head CT 08/04/17 01:55 IMPRESSION: No acute findings. Chronic pansinusitis. Chest X-Ray 08/04/17 03:50 IMPRESSION: Small right lower lobar pneumonia. Assessment & Plan - Diagnosis (1) Drug-induced hyperkalemia Is this a current diagnosis for this admission?: Yes Plan: See covering attending physician admitting orders (2) Chronic kidney disease Qualifiers: Chronic kidney disease stage: stage 3 (moderate) Qualified Code(s): N18.3 - Chronic kidney disease, stage 3 (moderate) Is this a current diagnosis for this admission?: Yes Plan: See covering attending physician admitting orders (3) Weakness Is this a current diagnosis for this admission?: Yes Plan: See covering attending physician admitting orders (4) Chronic lymphocytic leukemia Is this a current diagnosis for this admission?: Yes Plan: See covering attending physician admitting orders (5) Thrombocytopenia Is this a current diagnosis for this admission?: Yes Plan: See covering attending physician admitting orders (6) Anemia of chronic disease Is this a current diagnosis for this admission?: Yes Plan: See covering attending physician admitting orders - Time Time Spent: 50 to 70 Minutes Medications reviewed and adjusted accordingly: Yes Anticipated discharge: Home Within: within 48 hours - Plan Summary Plan Summary: See covering attending physician admitting orders
[2017-08-04 20:16] LABS: ANION GAP 12 (5-19); BLOOD UREA NITROGEN 31 mg/dL (7-20); CALCIUM 9.4 mg/dL (8.4-10.2); CARBON DIOXIDE 25 mmol/L (22-30); CHLORIDE 102 mmol/L (98-107); GLUCOSE 79 mg/dL (75-110); POTASSIUM 5.5 mmol/L (3.6-5.0); SODIUM 138.9 mmol/L (137-145)
[2017-08-04] MEDS: HYDROCODONE/ACETAMINOPHEN 5-325 MG TABLET PO PRN (20:24)
[2017-08-04] MEDS: GUAIFENESIN SYRP 200 MG/10 ML UDC PO PRN (20:26)
[2017-08-05] MEDS: LANSOPRAZOLE 30 MG TAB.RAP.DR PO SCH (05:59)
[2017-08-05] MEDS: DEXTROSE 5%-WATER 1000 ML 1,000 ML IV PRN (05:59)
[2017-08-05 07:33] LABS: HEMOGLOBIN 8.7 g/dL (12.0-15.5); MEAN CORPUSCULAR HEMOGLOBIN 32.5 pg (27.0-33.4); MEAN CORPUSCULAR HGB CONC 36.1 g/dL (32.0-36.0); MEAN CORPUSCULAR VOLUME 90 fl (80-97); RED BLOOD COUNT 2.66 10^6/uL (3.72-5.28); RED CELL DISTRIBUTION WIDTH 15.3 % (11.5-14.0)
[2017-08-05 08:22] LABS: ABSOLUTE LYMPHOCYTES# (MANUAL) 4.2 10^3/uL (0.5-4.7); ABSOLUTE MONOCYTES # (MANUAL) 0.9 10^3/uL (0.1-1.4); ABSOLUTE NEUTROPHILS# (MANUAL) 4.9 10^3/uL (1.7-8.2); BAND NEUTROPHILS % (MANUAL) 10 % (3-5); BASOPHILS % (MANUAL) 0 % (0-2); EOSINOPHILS % (MANUAL) 0 % (0-6); LYMPHOCYTES % (MANUAL) 42 % (13-45); MONOCYTES % (MANUAL) 9 % (3-13); SEGMENTED NEUTROPHILS % (MAN) 39 % (42-78); TOTAL CELLS COUNTED 100
[2017-08-05 08:27] LABS: ANISOCYTOSIS SLIGHT; POIKILOCYTOSIS SLIGHT; POLYCHROMASIA SLIGHT; TOXIC GRANULATION SLIGHT
[2017-08-05 08:28] LABS: OVALOCYTES 1+
[2017-08-05 08:29] LABS: HOWELL-JOLLY BODIES PRESENT; PLATELET COMMENT DECREASED
[2017-08-05 08:39] LABS: WHITE BLOOD COUNT 8.9 10^3/uL (4.0-10.5)
[2017-08-05 08:45] LABS: NUCLEATED RED BLOOD CELLS 11 /100 WBC (0)
[2017-08-05 10:01] LABS: ANION GAP 9 (5-19); BLOOD UREA NITROGEN 33 mg/dL (7-20); CALCIUM 8.9 mg/dL (8.4-10.2); CARBON DIOXIDE 30 mmol/L (22-30); CHLORIDE 99 mmol/L (98-107); GLUCOSE 73 mg/dL (75-110); POTASSIUM 5.1 mmol/L (3.6-5.0)
--- NOTE | 2017-08-05 11:53 | PDOC PROGRESS REPORT ---
Subjective Progress Note for:: 08/05/17 Subjective:: Patient continue to cc coughing spells. Denied chest pain or difficulty with breathing. Reported satisfactory bowel movement with Kayaxelate administration. No reported fever or chills. No abdominal pain, nausea, or vomiting. Reason For Visit: HYPERKALEMIA,CHRONIC KIDNEY FAILURE Physical Exam Vital Signs: Temp Pulse Resp BP Pulse Ox 97.8 F 89 17 147/77 H 100 08/05/17 07:18 08/05/17 07:18 08/05/17 07:18 08/05/17 07:18 08/05/17 07:18 Intake & Output 08/04/17 08/05/17 08/06/17 06:59 06:59 06:59 Intake Total 120 Balance 120 Weight 51 kg General appearance: PRESENT: no acute distress, well-developed, well-nourished Head exam: PRESENT: atraumatic, normocephalic Eye exam: PRESENT: conjunctiva pink, EOMI, PERRLA. ABSENT: scleral icterus Mouth exam: PRESENT: moist Respiratory exam: PRESENT: clear to auscultation sendy, decreased breath sounds - at lung bases Cardiovascular exam: PRESENT: RRR. ABSENT: diastolic murmur, rubs, systolic murmur Vascular exam: PRESENT: normal capillary refill. ABSENT: pallor GI/Abdominal exam: PRESENT: normal bowel sounds, soft. ABSENT: distended, guarding, mass, organolmegaly, rebound, tenderness Extremities exam: ABSENT: pedal edema Musculoskeletal exam: PRESENT: deformity - related to multiple joints involvement with arthritis Neurological exam: PRESENT: alert, awake, oriented to person, oriented to place , oriented to time, oriented to situation, CN II-XII grossly intact. ABSENT: motor sensory deficit Psychiatric exam: PRESENT: appropriate affect, normal mood. ABSENT: homicidal ideation, suicidal ideation Skin exam: PRESENT: dry, intact, warm. ABSENT: cyanosis, rash Results Laboratory Results: 08/05/17 07:05 08/05/17 08:59 08/04/17 08/05/17 08/05/17 19:15 07:05 07:05 WBC 8.9 RBC 2.66 L Hgb 8.7 L Hct 24.0 L MCV 90 MCH 32.5 MCHC 36.1 H RDW 15.3 H Plt Count 26 L* Seg Neutrophils % Not Reportable Lymphocytes % Not Reportable Monocytes % Not Reportable Eosinophils % Not Reportable Basophils % Not Reportable Absolute Neutrophils Not Reportable Absolute Lymphocytes Not Reportable Absolute Monocytes Not Reportable Absolute Eosinophils Not Reportable Absolute Basophils Not Reportable Sodium 138.9 Cancelled Potassium 5.5 H Cancelled Chloride 102 Cancelled Carbon Dioxide 25 Cancelled Anion Gap 12 Cancelled BUN 31 H Cancelled Creatinine 1.80 H Cancelled Est GFR ( Amer) 34 L Cancelled Est GFR (Non-Af Amer) 28 L Cancelled Glucose 79 Cancelled Calcium 9.4 Cancelled 08/05/17 08:59 WBC RBC Hgb Hct MCV MCH MCHC RDW Plt Count Seg Neutrophils % Lymphocytes % Monocytes % Eosinophils % Basophils % Absolute Neutrophils Absolute Lymphocytes Absolute Monocytes Absolute Eosinophils Absolute Basophils Sodium 138.0 Potassium 5.1 H Chloride 99 Carbon Dioxide 30 Anion Gap 9 BUN 33 H Creatinine 1.76 H Est GFR ( Amer) 35 L Est GFR (Non-Af Amer) 29 L Glucose 73 L Calcium 8.9 Impressions: Head CT 08/04/17 01:55 IMPRESSION: No acute findings. Chronic pansinusitis. Chest X-Ray 08/04/17 03:50 IMPRESSION: Small right lower lobar pneumonia. Assessment & Plan - Diagnosis (1) Drug-induced hyperkalemia Is this a current diagnosis for this admission?: Yes (2) Chronic kidney disease Qualifiers: Chronic kidney disease stage: stage 3 (moderate) Qualified Code(s): N18.3 - Chronic kidney disease, stage 3 (moderate) Is this a current diagnosis for this admission?: Yes (3) Weakness Is this a current diagnosis for this admission?: Yes (4) Chronic lymphocytic leukemia Is this a current diagnosis for this admission?: Yes (5) Thrombocytopenia Is this a current diagnosis for this admission?: Yes (6) Anemia of chronic disease Is this a current diagnosis for this admission?: Yes - Time Time Spent with patient: 25-34 minutes Medications reviewed and adjusted accordingly: Yes Anticipated discharge: Home with Homehealth Within: within 24 hours - Inpatient Certification Based on my medical assessment, after consideration of the patient's comorbidities, presenting symptoms, or acuity I expect that the services needed warrant INPATIENT care.: Yes I certify that my determination is in accordance with my understanding of Medicare's requirements for reasonable and necessary INPATIENT services [42 CFR 412.3e].: Yes Medical Necessity: Need Close Monitoring Due to Risk of Patient Decompensation, Need For Continuous Telemetry Monitoring, Risk of Complication if Not Cared For in Hospital Post Hospital Care: D/C [employer] Documentation - Plan Summary Plan Summary: Continue current medication management withhold her home potassium supplementation. Obtain CBC with diff and BMP in AM
[2017-08-05] MEDS: DILTIAZEM HCL 120 MG CAP.SR.24H PO SCH (21:45)
[2017-08-06] MEDS: LANSOPRAZOLE 30 MG TAB.RAP.DR PO SCH (05:35)
[2017-08-06 07:03] LABS: HEMATOCRIT 21.4 % (36.0-47.0); MEAN CORPUSCULAR HEMOGLOBIN 32.1 pg (27.0-33.4); MEAN CORPUSCULAR HGB CONC 35.5 g/dL (32.0-36.0); MEAN CORPUSCULAR VOLUME 91 fl (80-97); RED BLOOD COUNT 2.35 10^6/uL (3.72-5.28); WHITE BLOOD COUNT 7.3 10^3/uL (4.0-10.5)
[2017-08-06 07:10] LABS: HEMOGLOBIN 7.6 g/dL (12.0-15.5)
[2017-08-06 07:14] LABS: ANION GAP 7 (5-19); BLOOD UREA NITROGEN 33 mg/dL (7-20); CALCIUM 8.5 mg/dL (8.4-10.2); CARBON DIOXIDE 32 mmol/L (22-30); CHLORIDE 99 mmol/L (98-107); GLUCOSE 81 mg/dL (75-110); POTASSIUM 4.4 mmol/L (3.6-5.0); SODIUM 137.7 mmol/L (137-145)
[2017-08-06 08:35] LABS: PLATELET COUNT 25 10^3/uL (150-450)
[2017-08-06 08:40] LABS: ABSOLUTE LYMPHOCYTES# (MANUAL) 2.2 10^3/uL (0.5-4.7); ABSOLUTE MONOCYTES # (MANUAL) 0.7 10^3/uL (0.1-1.4); ABSOLUTE NEUTROPHILS# (MANUAL) 4.3 10^3/uL (1.7-8.2); BAND NEUTROPHILS % (MANUAL) 5 % (3-5); BASOPHILS % (MANUAL) 0 % (0-2); EOSINOPHILS % (MANUAL) 2 % (0-6); LYMPHOCYTES % (MANUAL) 29 % (13-45); METAMYELOCYTES % (MANUAL) 1 % (0); MONOCYTES % (MANUAL) 9 % (3-13); NUCLEATED RED BLOOD CELLS 11 /100 WBC (0); SEGMENTED NEUTROPHILS % (MAN) 53 % (42-78); TOTAL CELLS COUNTED 100
[2017-08-06 08:44] LABS: ANISOCYTOSIS SLIGHT; OVALOCYTES SLIGHT; PLATELET COMMENT DECREASED; POIKILOCYTOSIS SLIGHT; TOXIC GRANULATION 1+; TOXIC VACUOLATION PRESENT
[2017-08-06 10:37] LABS: PLATELET COUNT 26 10^3/uL (150-450)
[2017-08-06] MEDS: DILTIAZEM HCL 120 MG CAP.SR.24H PO SCH ×2 (10:45→21:09)
[2017-08-06] MEDS: DEXTROSE 5%-WATER 1000 ML 1,000 ML IV PRN (10:45)
[2017-08-06] MEDS: METOPROLOL SUCCINATE 50 MG TAB.SR.24H PO SCH (10:45)
--- NOTE | 2017-08-06 14:09 | Physician Advisory Note ---
Physician Advisor ProgressNote .: Pursuant to the plan for [facility], I have reviewed the medical record for this patient. Physician Advisor Statement: Please consider documentin. Which drug likely caused the thrombocytopenia - or "thrombocytopenia due to combination of repeated transfusions", or .... 2. Likely cause of cough - "Cough due to Acute exacerbation of COPD, evidenced by ____"? Allergic post-nasal drip? ... 3. Likely cause of acute weakness - Hyperkalemia? ... 4. "Anemia of chronic dz due to ____ (CLL? or CKD stage 3?, or ...)" - need to specify which chronic dz for ACD now - 5. Medical necessity: "Patient continues to need to be in hospital for care/ monitoring of because ", "I AM CONCERNED about ", ... Status: Medicare pt, needed 2nd MN in hospital due to persistent hyperkalemia/ worsening anemia/thrombocytopenia - appropriate to change to Inpatient status as of 08/05 PM. Thanks! CK
[2017-08-06 14:26] LABS: PATH REVIEW PATHOLOGIST REVIEWED
[2017-08-06 14:26] LABS: PATH REVIEW PATHOLOGIST REVIEWED
[2017-08-06] MEDS: GUAIFENESIN SYRP 200 MG/10 ML UDC PO PRN (14:49)
[2017-08-07] MEDS: LANSOPRAZOLE 30 MG TAB.RAP.DR PO SCH (06:14)
[2017-08-07 09:30] LABS: HEMATOCRIT 21.8 % (36.0-47.0); MEAN CORPUSCULAR HEMOGLOBIN 32.1 pg (27.0-33.4); MEAN CORPUSCULAR HGB CONC 35.5 g/dL (32.0-36.0); MEAN CORPUSCULAR VOLUME 91 fl (80-97); RED BLOOD COUNT 2.41 10^6/uL (3.72-5.28); RED CELL DISTRIBUTION WIDTH 14.7 % (11.5-14.0); WHITE BLOOD COUNT 6.7 10^3/uL (4.0-10.5)
[2017-08-07 09:38] LABS: ALANINE AMINOTRANSFERASE 15 U/L (9-52); ALBUMIN 3.4 g/dL (3.5-5.0); ALKALINE PHOSPHATASE 75 U/L (38-126); ANION GAP 10 (5-19); ASPARTATE AMINO TRANSFERASE 17 U/L (14-36); BILIRUBIN,DIRECT 0.1 mg/dL (0.0-0.4); BILIRUBIN,TOTAL 0.6 mg/dL (0.2-1.3); BLOOD UREA NITROGEN 27 mg/dL (7-20); CALCIUM 8.3 mg/dL (8.4-10.2); CARBON DIOXIDE 34 mmol/L (22-30); CHLORIDE 96 mmol/L (98-107); GLUCOSE 96 mg/dL (75-110); POTASSIUM 3.7 mmol/L (3.6-5.0); SODIUM 140.1 mmol/L (137-145); TOTAL PROTEIN 6.3 g/dL (6.3-8.2)
[2017-08-07 10:01] LABS: ABSOLUTE LYMPHOCYTES# (MANUAL) 1.7 10^3/uL (0.5-4.7); BAND NEUTROPHILS % (MANUAL) 5 % (3-5); BASOPHILS % (MANUAL) 0 % (0-2); EOSINOPHILS % (MANUAL) 0 % (0-6); LYMPHOCYTES % (MANUAL) 24 % (13-45); MONOCYTES % (MANUAL) 15 % (3-13); NUCLEATED RED BLOOD CELLS 4 /100 WBC (0); PLATELET COMMENT DECREASED; SEGMENTED NEUTROPHILS % (MAN) 55 % (42-78); TOTAL CELLS COUNTED 100; TOXIC GRANULATION 1+; TOXIC VACUOLATION PRESENT
[2017-08-07 10:02] LABS: ANISOCYTOSIS SLIGHT; POLYCHROMASIA SLIGHT
[2017-08-07 10:22] LABS: HEMOGLOBIN 7.7 g/dL (12.0-15.5); PLATELET COUNT 26 10^3/uL (150-450)
[2017-08-07] MEDS: DILTIAZEM HCL 120 MG CAP.SR.24H PO SCH ×2 (10:51→22:29)
[2017-08-07] MEDS: METOPROLOL SUCCINATE 50 MG TAB.SR.24H PO SCH (11:01)
[2017-08-07] MEDS: DEXTROSE 5%-WATER 1000 ML 1,000 ML IV PRN (15:50)
[2017-08-07] MEDS ORDERED: NORMAL SALINE 250 ML IV PRN ×2 (19:38)
--- NOTE | 2017-08-07 22:44 | PDOC PROGRESS REPORT ---
Subjective Progress Note for:: 08/07/17 Subjective:: She was admitted because of hyperkalemia, she has history of CLL myelosuppression associated with thrombocytopenia and anemia Reason For Visit: HYPERKALEMIA,THROMBOCYTOPENIA Physical Exam Vital Signs: Temp Pulse Resp BP Pulse Ox 98.8 F 96 16 90/50 L 97 08/07/17 15:12 08/07/17 19:00 08/07/17 15:12 08/07/17 15:12 08/07/17 15:12 Intake & Output 08/06/17 08/07/17 08/08/17 06:59 06:59 06:59 Intake Total 2740 3095 488 Output Total 700 300 Balance 2740 2395 188 General appearance: PRESENT: no acute distress Eye exam: PRESENT: PERRLA Respiratory exam: PRESENT: clear to auscultation sendy Cardiovascular exam: PRESENT: +S1, +S2 GI/Abdominal exam: PRESENT: soft Neurological exam: PRESENT: alert Results Laboratory Results: 08/07/17 08:45 08/07/17 08:45 08/07/17 08/07/17 08/07/17 08:45 08:45 19:55 WBC 6.7 RBC 2.41 L Hgb 7.7 L Hct 21.8 L MCV 91 MCH 32.1 MCHC 35.5 RDW 14.7 H Plt Count 26 L* Seg Neutrophils % Not Reportable Lymphocytes % Not Reportable Monocytes % Not Reportable Eosinophils % Not Reportable Basophils % Not Reportable Absolute Neutrophils Not Reportable Absolute Lymphocytes Not Reportable Absolute Monocytes Not Reportable Absolute Eosinophils Not Reportable Absolute Basophils Not Reportable Sodium 140.1 Potassium 3.7 Chloride 96 L Carbon Dioxide 34 H Anion Gap 10 BUN 27 H Creatinine 1.75 H Est GFR ( Amer) 35 L Est GFR (Non-Af Amer) 29 L Glucose 96 Calcium 8.3 L Total Bilirubin 0.6 AST 17 ALT 15 Alkaline Phosphatase 75 Total Protein 6.3 Albumin 3.4 L Blood Type B POSITIVE Antibody Screen NEGATIVE Impressions: Head CT 08/04/17 01:55 IMPRESSION: No acute findings. Chronic pansinusitis. Chest X-Ray 08/04/17 03:50 IMPRESSION: Small right lower lobar pneumonia. Assessment & Plan - Diagnosis (1) Anemia Qualifiers: Anemia type: bone marrow failure Bone marrow failure anemia type: other bone marrow failure Qualified Code(s): D61.89 - Other specified aplastic anemias and other bone marrow failure syndromes Is this a current diagnosis for this admission?: Yes (2) Chronic kidney disease (CKD), stage III (moderate) Is this a current diagnosis for this admission?: Yes (3) Chronic lymphocytic leukemia Is this a current diagnosis for this admission?: Yes (5) Myelosuppression Is this a current diagnosis for this admission?: Yes (6) Thrombocytopenia Is this a current diagnosis for this admission?: Yes
[2017-08-08] MEDS: LANSOPRAZOLE 30 MG TAB.RAP.DR PO SCH (05:25)
[2017-08-08 07:19] LABS: HEMATOCRIT 27.2 % (36.0-47.0); MEAN CORPUSCULAR HEMOGLOBIN 31.1 pg (27.0-33.4); MEAN CORPUSCULAR HGB CONC 35.8 g/dL (32.0-36.0); RED BLOOD COUNT 3.14 10^6/uL (3.72-5.28)
[2017-08-08 08:07] LABS: WHITE BLOOD COUNT 7.4 10^3/uL (4.0-10.5)
[2017-08-08 08:08] LABS: HEMOGLOBIN 9.8 g/dL (12.0-15.5); MEAN CORPUSCULAR VOLUME 87 fl (80-97)
[2017-08-08 08:09] LABS: PLATELET COUNT 19 10^3/uL (150-450)
[2017-08-08 08:11] LABS: ABSOLUTE LYMPHOCYTES# (MANUAL) 1.6 10^3/uL (0.5-4.7); ABSOLUTE MONOCYTES # (MANUAL) 1.6 10^3/uL (0.1-1.4); ABSOLUTE NEUTROPHILS# (MANUAL) 4.2 10^3/uL (1.7-8.2); BAND NEUTROPHILS % (MANUAL) 4 % (3-5); BASOPHILS % (MANUAL) 0 % (0-2); EOSINOPHILS % (MANUAL) 0 % (0-6); LYMPHOCYTES % (MANUAL) 20 % (13-45); MONOCYTES % (MANUAL) 22 % (3-13); NUCLEATED RED BLOOD CELLS 5 /100 WBC (0); SEGMENTED NEUTROPHILS % (MAN) 53 % (42-78); TOTAL CELLS COUNTED 100
[2017-08-08 08:12] LABS: ANISOCYTOSIS 1+; HYPOCHROMASIA SLIGHT; PLATELET COMMENT DECREASED; POLYCHROMASIA SLIGHT; TOXIC GRANULATION SLIGHT; TOXIC VACUOLATION PRESENT
[2017-08-08] MEDS: METOPROLOL SUCCINATE 50 MG TAB.SR.24H PO SCH (10:36)
[2017-08-08] MEDS: DILTIAZEM HCL 120 MG CAP.SR.24H PO SCH ×2 (10:38→21:42)
[2017-08-08] MEDS: HYDROCODONE/ACETAMINOPHEN 5-325 MG TABLET PO PRN (15:33)
[2017-08-08] MEDS ORDERED: LANSOPRAZOLE 30 MG TAB.RAP.DR PO ONE (16:00)
--- NOTE | 2017-08-08 17:25 | PDOC PROGRESS REPORT ---
Subjective Progress Note for:: 08/08/17 Subjective:: I had a long discussion with this patient today, she expressed the desire to go to a facility, she has myelosuppression, she was transfused with packed red blood cells yesterday, the platelet count today is 19,000, she is not improving. We discussed options of hospice, DNR status, she wants to be DNR, this to be ordered in the chart. Prognosis is poor in this patient, she knows if she goes to the facility she we no longer be able to receive chemotherapy. Reason For Visit: HYPERKALEMIA,THROMBOCYTOPENIA Physical Exam Vital Signs: Temp Pulse Resp BP Pulse Ox 97.7 F 67 17 130/70 H 100 08/08/17 15:39 08/08/17 15:39 08/08/17 15:39 08/08/17 15:39 08/08/17 15:39 Intake & Output 08/07/17 08/08/17 08/09/17 06:59 06:59 06:59 Intake Total 3095 1732 784 Output Total 700 800 Balance 2395 932 784 General appearance: PRESENT: no acute distress Eye exam: PRESENT: PERRLA Respiratory exam: PRESENT: rhonchi Cardiovascular exam: PRESENT: +S1, +S2 Neurological exam: PRESENT: alert Results Laboratory Results: 08/08/17 04:37 08/07/17 08:45 08/07/17 08/08/17 19:55 04:37 WBC 7.4 RBC 3.14 L Hgb 9.8 L D Hct 27.2 L MCV 87 D MCH 31.1 MCHC 35.8 RDW 15.0 H Plt Count 19 L* Seg Neutrophils % Not Reportable Lymphocytes % Not Reportable Monocytes % Not Reportable Eosinophils % Not Reportable Basophils % Not Reportable Absolute Neutrophils Not Reportable Absolute Lymphocytes Not Reportable Absolute Monocytes Not Reportable Absolute Eosinophils Not Reportable Absolute Basophils Not Reportable Blood Type B POSITIVE Antibody Screen NEGATIVE Impressions: Head CT 08/04/17 01:55 IMPRESSION: No acute findings. Chronic pansinusitis. Chest X-Ray 08/04/17 03:50 IMPRESSION: Small right lower lobar pneumonia. Assessment & Plan - Diagnosis (1) Anemia Qualifiers: Anemia type: bone marrow failure Bone marrow failure anemia type: other bone marrow failure Qualified Code(s): D61.89 - Other specified aplastic anemias and other bone marrow failure syndromes Is this a current diagnosis for this admission?: Yes (2) Thrombocytopenia Is this a current diagnosis for this admission?: Yes (3) Chronic kidney disease (CKD), stage III (moderate) Is this a current diagnosis for this admission?: Yes (4) Chronic lymphocytic leukemia Is this a current diagnosis for this admission?: Yes (5) Myelosuppression Is this a current diagnosis for this admission?: Yes
[2017-08-09] MEDS: LANSOPRAZOLE 30 MG TAB.RAP.DR PO SCH (05:23)
[2017-08-09] MEDS: METOPROLOL SUCCINATE 50 MG TAB.SR.24H PO SCH (09:24)
[2017-08-09] MEDS: DILTIAZEM HCL 120 MG CAP.SR.24H PO SCH ×2 (09:25→21:25)
[2017-08-09] MEDS: ACETAMINOPHEN 325 MG TABLET PO PRN (11:01)
[2017-08-09 19:39] LABS: HEMATOCRIT 30.4 % (36.0-47.0); HEMOGLOBIN 10.5 g/dL (12.0-15.5); MEAN CORPUSCULAR HEMOGLOBIN 30.4 pg (27.0-33.4); MEAN CORPUSCULAR HGB CONC 34.7 g/dL (32.0-36.0); MEAN CORPUSCULAR VOLUME 88 fl (80-97); RED BLOOD COUNT 3.46 10^6/uL (3.72-5.28); RED CELL DISTRIBUTION WIDTH 15.2 % (11.5-14.0); WHITE BLOOD COUNT 9.2 10^3/uL (4.0-10.5)
[2017-08-09 19:48] LABS: ANION GAP 7 (5-19); BLOOD UREA NITROGEN 18 mg/dL (7-20); CALCIUM 8.3 mg/dL (8.4-10.2); CARBON DIOXIDE 32 mmol/L (22-30); CHLORIDE 97 mmol/L (98-107); GLUCOSE 84 mg/dL (75-110); POTASSIUM 3.6 mmol/L (3.6-5.0); SODIUM 136.4 mmol/L (137-145)
[2017-08-09 19:58] LABS: PLATELET COUNT 34 10^3/uL (150-450)
[2017-08-09 20:02] LABS: ABSOLUTE LYMPHOCYTES# (MANUAL) 3.3 10^3/uL (0.5-4.7); ABSOLUTE MONOCYTES # (MANUAL) 0.8 10^3/uL (0.1-1.4); ABSOLUTE NEUTROPHILS# (MANUAL) 5.1 10^3/uL (1.7-8.2); BAND NEUTROPHILS % (MANUAL) 5 % (3-5); BASOPHILS % (MANUAL) 0 % (0-2); EOSINOPHILS % (MANUAL) 0 % (0-6); LYMPHOCYTES % (MANUAL) 36 % (13-45); METAMYELOCYTES % (MANUAL) 1 % (0); MONOCYTES % (MANUAL) 9 % (3-13); NUCLEATED RED BLOOD CELLS 2 /100 WBC (0); PLATELET COMMENT DECREASED; SEGMENTED NEUTROPHILS % (MAN) 49 % (42-78); TOTAL CELLS COUNTED 100
[2017-08-09 20:03] LABS: ANISOCYTOSIS SLIGHT; OVALOCYTES SLIGHT; POIKILOCYTOSIS SLIGHT
[2017-08-09 20:05] LABS: TOXIC GRANULATION SLIGHT
--- NOTE | 2017-08-09 21:36 | PDOC PROGRESS REPORT ---
Subjective Progress Note for:: 08/09/17 Subjective:: She was seen by the bedside, plan of care was discussed with patient including option of hospice etc. Reason For Visit: HYPERKALEMIA,THROMBOCYTOPENIA Physical Exam Vital Signs: Temp Pulse Resp BP Pulse Ox 97.8 F 65 18 119/68 98 08/09/17 15:30 08/09/17 15:30 08/09/17 15:30 08/09/17 15:30 08/09/17 15:30 Intake & Output 08/08/17 08/09/17 08/10/17 06:59 06:59 06:59 Intake Total 1732 914 384 Output Total 800 300 Balance 932 614 384 General appearance: PRESENT: no acute distress Eye exam: PRESENT: PERRLA Respiratory exam: PRESENT: clear to auscultation sendy Cardiovascular exam: PRESENT: +S1, +S2 GI/Abdominal exam: PRESENT: soft Neurological exam: PRESENT: alert Results Laboratory Results: 08/09/17 18:50 08/09/17 18:50 08/09/17 08/09/17 18:50 18:50 WBC 9.2 RBC 3.46 L Hgb 10.5 L Hct 30.4 L MCV 88 MCH 30.4 MCHC 34.7 RDW 15.2 H Plt Count 34 L Seg Neutrophils % Not Reportable Lymphocytes % Not Reportable Monocytes % Not Reportable Eosinophils % Not Reportable Basophils % Not Reportable Absolute Neutrophils Not Reportable Absolute Lymphocytes Not Reportable Absolute Monocytes Not Reportable Absolute Eosinophils Not Reportable Absolute Basophils Not Reportable Sodium 136.4 L Potassium 3.6 Chloride 97 L Carbon Dioxide 32 H Anion Gap 7 BUN 18 Creatinine 1.46 H Est GFR ( Amer) 43 L Est GFR (Non-Af Amer) 35 L Glucose 84 Calcium 8.3 L Impressions: Head CT 08/04/17 01:55 IMPRESSION: No acute findings. Chronic pansinusitis. Chest X-Ray 08/04/17 03:50 IMPRESSION: Small right lower lobar pneumonia. Assessment & Plan - Diagnosis (1) Anemia Qualifiers: Anemia type: bone marrow failure Bone marrow failure anemia type: other bone marrow failure Qualified Code(s): D61.89 - Other specified aplastic anemias and other bone marrow failure syndromes Is this a current diagnosis for this admission?: Yes (2) Chronic kidney disease (CKD), stage III (moderate) Is this a current diagnosis for this admission?: Yes (3) Chronic lymphocytic leukemia Is this a current diagnosis for this admission?: Yes (4) Hyperkalemia Is this a current diagnosis for this admission?: Yes (5) Myelosuppression Is this a current diagnosis for this admission?: Yes (6) Thrombocytopenia Is this a current diagnosis for this admission?: Yes
[2017-08-09] MEDS: HYDROCODONE/ACETAMINOPHEN 5-325 MG TABLET PO PRN (22:15)
[2017-08-09] MEDS: GUAIFENESIN SYRP 200 MG/10 ML UDC PO PRN (22:15)
[2017-08-10] MEDS: LANSOPRAZOLE 30 MG TAB.RAP.DR PO SCH (05:31)
[2017-08-10] MEDS: METOPROLOL SUCCINATE 50 MG TAB.SR.24H PO SCH (09:27)
[2017-08-10] MEDS: DILTIAZEM HCL 120 MG CAP.SR.24H PO SCH ×2 (09:28→21:41)
[2017-08-10] MEDS: HYDROCODONE/ACETAMINOPHEN 5-325 MG TABLET PO PRN (21:41)
--- NOTE | 2017-08-10 22:16 | PDOC PROGRESS REPORT ---
Subjective Progress Note for:: 08/10/17 Subjective:: The discharge plan as discussing different options the patient's regarding disposition Reason For Visit: HYPERKALEMIA,THROMBOCYTOPENIA Physical Exam Vital Signs: Temp Pulse Resp BP Pulse Ox 97.8 F 63 19 100/77 89 L 08/10/17 19:57 08/10/17 19:57 08/10/17 19:57 08/10/17 19:57 08/10/17 19:57 Intake & Output 08/09/17 08/10/17 08/11/17 06:59 06:59 06:59 Intake Total 914 806 496 Output Total 300 350 200 Balance 614 456 296 General appearance: PRESENT: no acute distress Eye exam: PRESENT: PERRLA Respiratory exam: PRESENT: clear to auscultation sendy Cardiovascular exam: PRESENT: +S1, +S2 GI/Abdominal exam: PRESENT: soft Results Laboratory Results: 08/09/17 18:50 08/09/17 18:50 Impressions: Head CT 08/04/17 01:55 IMPRESSION: No acute findings. Chronic pansinusitis. Chest X-Ray 08/04/17 03:50 IMPRESSION: Small right lower lobar pneumonia. Assessment & Plan - Diagnosis (1) Anemia Qualifiers: Anemia type: bone marrow failure Bone marrow failure anemia type: other bone marrow failure Qualified Code(s): D61.89 - Other specified aplastic anemias and other bone marrow failure syndromes Is this a current diagnosis for this admission?: Yes (2) Chronic kidney disease (CKD), stage III (moderate) Is this a current diagnosis for this admission?: Yes (3) Chronic lymphocytic leukemia Is this a current diagnosis for this admission?: Yes (4) Hyperkalemia Is this a current diagnosis for this admission?: Yes (5) Myelosuppression Is this a current diagnosis for this admission?: Yes (6) Thrombocytopenia Is this a current diagnosis for this admission?: Yes
[2017-08-11] MEDS: LANSOPRAZOLE 30 MG TAB.RAP.DR PO SCH (05:59)
[2017-08-11] MEDS: METOPROLOL SUCCINATE 50 MG TAB.SR.24H PO SCH (09:15)
[2017-08-11] MEDS: DILTIAZEM HCL 120 MG CAP.SR.24H PO SCH (09:15)
[2017-08-11] MEDS: ACETAMINOPHEN 325 MG TABLET PO PRN (21:13)
--- NOTE | 2017-08-11 21:22 | PDOC PROGRESS REPORT ---
Subjective Progress Note for:: 08/11/17 Subjective:: Patient seen by the bedside Reason For Visit: HYPERKALEMIA,THROMBOCYTOPENIA Physical Exam Vital Signs: Temp Pulse Resp BP Pulse Ox 97.8 F 62 19 111/64 100 08/11/17 19:00 08/11/17 19:00 08/11/17 19:00 08/11/17 19:00 08/11/17 19:00 Intake & Output 08/10/17 08/11/17 08/12/17 06:59 06:59 06:59 Intake Total 806 846 266 Output Total 350 300 Balance 456 546 266 General appearance: PRESENT: no acute distress, well-developed, well-nourished Head exam: PRESENT: atraumatic, normocephalic Eye exam: PRESENT: conjunctiva pink, EOMI, PERRLA Ear exam: PRESENT: normal external ear exam Mouth exam: PRESENT: moist, tongue midline Neck exam: PRESENT: full ROM Respiratory exam: PRESENT: clear to auscultation sendy Cardiovascular exam: PRESENT: RRR, +S1, +S2 Pulses: PRESENT: normal dorsalis pedis pul, +2 pedal pulses bilateral Vascular exam: PRESENT: normal capillary refill GI/Abdominal exam: PRESENT: normal bowel sounds, soft Rectal exam: PRESENT: deferred Neurological exam: PRESENT: alert, awake, oriented to person, oriented to place , oriented to time, oriented to situation, CN II-XII grossly intact. ABSENT: motor sensory deficit Psychiatric exam: PRESENT: appropriate affect, normal mood. ABSENT: homicidal ideation, suicidal ideation Skin exam: PRESENT: dry, intact, warm. ABSENT: cyanosis, rash Results Laboratory Results: 08/09/17 18:50 08/09/17 18:50 Impressions: Head CT 08/04/17 01:55 IMPRESSION: No acute findings. Chronic pansinusitis. Chest X-Ray 08/04/17 03:50 IMPRESSION: Small right lower lobar pneumonia. Assessment & Plan - Diagnosis (1) Anemia Qualifiers: Anemia type: bone marrow failure Bone marrow failure anemia type: other bone marrow failure Qualified Code(s): D61.89 - Other specified aplastic anemias and other bone marrow failure syndromes Is this a current diagnosis for this admission?: Yes (2) Chronic kidney disease (CKD), stage III (moderate) Is this a current diagnosis for this admission?: Yes (3) Chronic lymphocytic leukemia Is this a current diagnosis for this admission?: Yes (4) Hyperkalemia Is this a current diagnosis for this admission?: Yes (5) Myelosuppression Is this a current diagnosis for this admission?: Yes (6) Thrombocytopenia Is this a current diagnosis for this admission?: Yes
[2017-08-12] MEDS: DILTIAZEM HCL 120 MG CAP.SR.24H PO SCH ×3 (00:21→21:08)
[2017-08-12] MEDS: LANSOPRAZOLE 30 MG TAB.RAP.DR PO SCH (05:12)
[2017-08-12] MEDS: METOPROLOL SUCCINATE 50 MG TAB.SR.24H PO SCH (09:45)
--- NOTE | 2017-08-12 15:01 | PDOC PROGRESS REPORT ---
Subjective Progress Note for:: 08/12/17 Subjective:: Patient seen by the bedside Reason For Visit: HYPERKALEMIA,THROMBOCYTOPENIA Physical Exam Vital Signs: Temp Pulse Resp BP Pulse Ox 97.4 F 79 18 119/62 100 08/12/17 11:53 08/12/17 14:00 08/12/17 11:53 08/12/17 11:53 08/12/17 11:53 Intake & Output 08/11/17 08/12/17 08/13/17 06:59 06:59 06:59 Intake Total 846 643 Output Total 300 150 Balance 546 493 General appearance: PRESENT: no acute distress Eye exam: PRESENT: PERRLA Respiratory exam: PRESENT: clear to auscultation sendy Cardiovascular exam: PRESENT: +S1, +S2 GI/Abdominal exam: PRESENT: soft Results Laboratory Results: 08/09/17 18:50 08/09/17 18:50 Impressions: Head CT 08/04/17 01:55 IMPRESSION: No acute findings. Chronic pansinusitis. Chest X-Ray 08/04/17 03:50 IMPRESSION: Small right lower lobar pneumonia. Assessment & Plan - Diagnosis (1) Anemia Qualifiers: Anemia type: bone marrow failure Bone marrow failure anemia type: other bone marrow failure Qualified Code(s): D61.89 - Other specified aplastic anemias and other bone marrow failure syndromes Is this a current diagnosis for this admission?: Yes (2) Chronic kidney disease (CKD), stage III (moderate) Is this a current diagnosis for this admission?: Yes (3) Chronic lymphocytic leukemia Is this a current diagnosis for this admission?: Yes (4) Hyperkalemia Is this a current diagnosis for this admission?: Yes (5) Myelosuppression Is this a current diagnosis for this admission?: Yes (6) Thrombocytopenia Is this a current diagnosis for this admission?: Yes
[2017-08-12 15:57] LABS: ALANINE AMINOTRANSFERASE 13 U/L (9-52); ALBUMIN 3.6 g/dL (3.5-5.0); ALKALINE PHOSPHATASE 94 U/L (38-126); ANION GAP 13 (5-19); ASPARTATE AMINO TRANSFERASE 23 U/L (14-36); BILIRUBIN,DIRECT 0.1 mg/dL (0.0-0.4); BILIRUBIN,TOTAL 0.4 mg/dL (0.2-1.3); BLOOD UREA NITROGEN 16 mg/dL (7-20); CALCIUM 8.8 mg/dL (8.4-10.2); CARBON DIOXIDE 30 mmol/L (22-30); CHLORIDE 99 mmol/L (98-107); GLUCOSE 99 mg/dL (75-110); POTASSIUM 3.7 mmol/L (3.6-5.0); SODIUM 142.1 mmol/L (137-145); TOTAL PROTEIN 6.3 g/dL (6.3-8.2)
[2017-08-12 16:48] LABS: HEMATOCRIT 31.2 % (36.0-47.0); HEMOGLOBIN 10.6 g/dL (12.0-15.5); MEAN CORPUSCULAR HEMOGLOBIN 30.2 pg (27.0-33.4); MEAN CORPUSCULAR HGB CONC 34.1 g/dL (32.0-36.0); MEAN CORPUSCULAR VOLUME 89 fl (80-97); RED BLOOD COUNT 3.51 10^6/uL (3.72-5.28); RED CELL DISTRIBUTION WIDTH 14.7 % (11.5-14.0); WHITE BLOOD COUNT 8.6 10^3/uL (4.0-10.5)
[2017-08-12 16:49] LABS: PLATELET COUNT 106 10^3/uL (150-450)
[2017-08-12 16:55] LABS: ABSOLUTE LYMPHOCYTES# (MANUAL) 1.4 10^3/uL (0.5-4.7); BAND NEUTROPHILS % (MANUAL) 1 % (3-5); BASOPHILS % (MANUAL) 0 % (0-2); EOSINOPHILS % (MANUAL) 2 % (0-6); LYMPHOCYTES % (MANUAL) 16 % (13-45); MONOCYTES % (MANUAL) 12 % (3-13); SEGMENTED NEUTROPHILS % (MAN) 69 % (42-78); TOTAL CELLS COUNTED 100
[2017-08-12 16:57] LABS: ANISOCYTOSIS 1+; PLATELET COMMENT DECREASED; PLATELET LARGE PRESENT; POIKILOCYTOSIS SLIGHT; TEAR DROP CELLS SLIGHT
[2017-08-13] MEDS: LANSOPRAZOLE 30 MG TAB.RAP.DR PO SCH (05:29)
[2017-08-13] MEDS: METOPROLOL SUCCINATE 50 MG TAB.SR.24H PO SCH (09:39)
[2017-08-13] MEDS: DILTIAZEM HCL 120 MG CAP.SR.24H PO SCH ×2 (09:40→21:52)
--- NOTE | 2017-08-13 20:44 | PDOC DISCHARGE SUMMARY ---
General - Admit/Disc Date/PCP Admission Date/Primary Care Provider: 08/04/17 04:37 ERUM HENAO MD Discharge Date: 08/14/17 - Discharge Diagnosis (1) Hyperkalemia Is this a current diagnosis for this admission?: Yes (2) Anemia Is this a current diagnosis for this admission?: Yes (3) Chronic kidney disease (CKD), stage III (moderate) Is this a current diagnosis for this admission?: Yes (4) Chronic lymphocytic leukemia Is this a current diagnosis for this admission?: Yes (5) Myelosuppression Is this a current diagnosis for this admission?: Yes (6) Thrombocytopenia Is this a current diagnosis for this admission?: Yes - Additional Information Resuscitation Status: Full Code Discharge Activity: Activity As Tolerated Home Medications: Diltiazem HCl [Cartia Xt] 120 mg PO Q12 08/04/17 Hydrocodone Bit/Acetaminophen [Hydrocodon-Acetaminophn 10-325] 1 each PO Q8HP PRN 08/04/17 Metoprolol Succinate [Toprol Xl 50 mg Tab.sr] 75 mg PO DAILY 08/04/17 Montelukast Sodium [Singulair 10 mg Tablet] 10 mg PO QHS 08/04/17 Omeprazole 40 mg PO DAILY 08/04/17 History of Present Illness History of Present Illness: JANET ABBOTT is a 72 year old female, She was admitted initially for the management of symptomatic hyperkalemia, she presented with abdominal symptoms, muscle pains and discomfort Hospital Course Hospital Course: The hyperkalemia was felt to be due to excessive use of supplemental potassium in the setting of chronic kidney disease. She was treated with p.o. Kayexalate , 5% dextrose and insulin. Hospital course was complicated with pancytopenia, she has myelosuppression due to CLL. She required a transfusion with red blood cells. The platelet count was as low as 20,000 but she did not require any transfusion with platelets. She contemplated during the course of hospital stay of going to stay in a long-term care facility but she change her mind and she wants to be discharged home. Physical Exam Vital Signs: Temp Pulse Resp BP Pulse Ox 97.8 F 64 14 113/57 L 98 08/13/17 20:00 08/13/17 20:00 08/13/17 20:00 08/13/17 20:00 08/13/17 20:00 Intake & Output 08/12/17 08/13/17 08/14/17 06:59 06:59 06:59 Intake Total 643 1394 1125 Output Total 150 Balance 493 1394 1125 Weight 51.9 kg General appearance: PRESENT: no acute distress Head exam: PRESENT: atraumatic, normocephalic Eye exam: PRESENT: conjunctiva pink, EOMI, PERRLA Mouth exam: PRESENT: moist, tongue midline Neck exam: PRESENT: full ROM Respiratory exam: PRESENT: clear to auscultation sendy Cardiovascular exam: PRESENT: RRR, +S1, +S2 Vascular exam: PRESENT: normal capillary refill GI/Abdominal exam: PRESENT: normal bowel sounds, soft Rectal exam: PRESENT: deferred Neurological exam: PRESENT: alert, awake, oriented to person, oriented to place , oriented to time, oriented to situation, CN II-XII grossly intact Psychiatric exam: PRESENT: appropriate affect, normal mood Skin exam: PRESENT: dry, intact, warm Results Laboratory Results: 08/12/17 16:20 08/12/17 15:20 Impressions: Head CT 08/04/17 01:55 IMPRESSION: No acute findings. Chronic pansinusitis. Chest X-Ray 08/04/17 03:50 IMPRESSION: Small right lower lobar pneumonia. Qualifiers - * PATEINT BEING DISCHARGED WITH ANY OF THE FOLLOWING DIAGNOSIS?: No VTE patient discharged on overlapping Therapy?: Yes
--- NOTE | 2017-08-13 20:47 | PDOC PROGRESS REPORT ---
Subjective Progress Note for:: 08/13/17 Subjective:: She was seen by the bedside, she has no new complaints she will be discharged home in the morning Reason For Visit: HYPERKALEMIA,THROMBOCYTOPENIA Physical Exam Vital Signs: Temp Pulse Resp BP Pulse Ox 97.8 F 64 14 113/57 L 98 08/13/17 20:00 08/13/17 20:00 08/13/17 20:00 08/13/17 20:00 08/13/17 20:00 Intake & Output 08/12/17 08/13/17 08/14/17 06:59 06:59 06:59 Intake Total 643 1394 1125 Output Total 150 Balance 493 1394 1125 Weight 51.9 kg General appearance: PRESENT: no acute distress Head exam: PRESENT: atraumatic, normocephalic Eye exam: PRESENT: PERRLA Ear exam: PRESENT: normal external ear exam Mouth exam: PRESENT: moist, tongue midline Neck exam: PRESENT: full ROM Respiratory exam: PRESENT: clear to auscultation sendy Cardiovascular exam: PRESENT: RRR, +S1, +S2 Vascular exam: PRESENT: normal capillary refill GI/Abdominal exam: PRESENT: normal bowel sounds, soft Rectal exam: PRESENT: deferred Neurological exam: PRESENT: alert, awake, oriented to person, oriented to place , oriented to time, oriented to situation, CN II-XII grossly intact Psychiatric exam: PRESENT: appropriate affect, normal mood Skin exam: PRESENT: dry, intact, warm. ABSENT: cyanosis, rash Results Laboratory Results: 08/12/17 16:20 08/12/17 15:20 Impressions: Head CT 08/04/17 01:55 IMPRESSION: No acute findings. Chronic pansinusitis. Chest X-Ray 08/04/17 03:50 IMPRESSION: Small right lower lobar pneumonia. 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
[2017-08-14] MEDS ORDERED: LANSOPRAZOLE 30 MG TAB.RAP.DR PO SCH (06:00)
[2017-08-14 08:41] VITALS: BP 137/87
== END 2017-08-14 09:16 | disposition home or self-care (01) | DRG 641 ==
LOC: ER 00:19 → EH 04:37 → OBSVTOIN 04:37 → 5 08-05 05:41
PROVIDERS: ADMIT Internal Medicine; ATTEND Internal Medicine
PROC: 30233N1 Transfusion of Nonautologous Red Blood Cells into Peripheral Vein, Percutaneous Approach (ICD-10-PCS; principal; 2017-08-07)
DX: E87.5 Hyperkalemia (principal); C91.90 Lymphoid leukemia, unspecified not having achieved remission; D61.818 Other pancytopenia; C91.10 Chronic lymphocytic leukemia of B-cell type not having achieved remission; M19.90 Unspecified osteoarthritis, unspecified site; D63.8 Anemia in other chronic diseases classified elsewhere; J44.9 Chronic obstructive pulmonary disease, unspecified; I12.9 Hypertensive chronic kidney disease with stage 1 through stage 4 chronic kidney disease, or unspecified chronic kidney disease; N18.3 Chronic kidney disease, stage 3 (moderate); D69.59 Other secondary thrombocytopenia; D63.1 Anemia in chronic kidney disease; N28.9 Disorder of kidney and ureter, unspecified; Z90.81 Acquired absence of spleen; Z86.14 Personal history of Methicillin resistant Staphylococcus aureus infection; Z66 Do not resuscitate
CPT/HCPCS: 36415; 36430; 70450; 71045; 80048; 80053; 81001; 82962; 83690; 85025; 86850; 86900; 86901; 86920; 87493; 93005; 93010; 96361; 96374; 96375; 99285; G0378; J0610; J1815; J2405; J3490; J7040; J7060; P9016

== ENCOUNTER → 2018-02-12 | Outpatient (CLI) | payer MEDICARE, MEDICAID ==
--- NOTE | 2018-02-13 10:24 | RADIOLOGY REPORT (SQ) ---
EXAM DESCRIPTION: PET CT SKULL/THIGH COMPLETED DATE/TIME: 02/12/2018 9:03 pm REASON FOR STUDY: CHRONIC LYMPHOCYTIC LEUK OF B-CELL TYPE NOT ACHIEVE REMIS C91.10 CHRONIC LYMPHOCY TIC LEUK OF B-CELL TYPE NOT ACHIEVE R COMPARISON: PET-CT 06/05/2017, 01/02/2016, 10/01/2015 CT soft tissue neck 11/01/2016 CT chest 06/27/2017, 11/01/2016 CT abdomen pelvis 04/23/2017 RADIONUCLIDE AND DOSE: 12.3 mCi F18 FDG The route of agent administration: Intravenous FASTING BLOOD SUGAR: 63 mg/dl CONTRAST TYPE AND DOSE: No CT contrast given. TECHNIQUE: Blood glucose level was verified. Above dose of FDG was injected intravenously. 2-D seg mented attenuation correction images were obtained from the base of the skull to the midthighs. Nonc ontrast CT images were obtained for attenuation correction and fusion with emission images. CT image s were performed without oral or intravenous contrast and are not sensitive for parenchymal lesions. A series of overlapping emission PET images were obtained. Images reviewed and manipulated at [facility] work station by the radiologist. Images stored on PACS. LIMITATIONS: None. FINDINGS: HEAD AND NECK: There is a recurrent right submandibular mass, measuring at least 5 x 4 cm in size, similar in size compared to 11/01/2016 soft tissue neck. On today's exam, this has SUV of 4. 8 In the posterior aspect right neck, a right posterior triangle lymph node is present 3 x 1.2 cm in si ze with SUV 4.8 (was 1.4 x 0.9 cm in size on CT exam 11/01/2016). A right paratracheal lymph node is present at the thoracic inlet 1.5 x 1 cm in size on axial image 43 , with SUV of 4.5. This is new compared to prior studies. There is a right paratracheal lymph node at the thoracic inlet 1.5 x 0.7 cm in size on axial image 45 with SUV of 3.9. This is new compared to prior studies. CHEST: No areas of abnormal metabolic activity in the chest. Minimal scarring is present in the post erior right upper lobe on image 74. There is chronic right middle lobe and lingular atelectasis, non metabolic. There is a 1.6 x 1.3 cm left retropectoral lymph node axial image 52, with SUV of 2.1. This new comp ared to prior studies ABDOMEN AND PELVIS: No areas of abnormal metabolic activity in the abdomen or pelvis. Expected physi ologic activity is present in the genitourinary system and bowel. PROXIMAL LOWER EXTREMITIES: No areas of abnormal metabolic activity in the soft tissues of the lower extremities. BONES: No abnormal metabolic activity in the visualized skeleton. ADDITIONAL CT FINDINGS: Right central line tip superior vena cava. Post cholecystectomy and splenect daryl OTHER: Liver background activity 2.6 SUV. Blood pool background activity 1.8 SUV. IMPRESSION: Recurrent right submandibular region mass with increased metabolic activity New hypermetabolic lymph nodes in the right posterior triangle, right paratracheal regions and left r etropectoral region. TECHNICAL DOCUMENTATION: JOB ID: [id number] [employer]- All Rights Reserved Reading location - IP/workstation name: [email or web address]
== END ==
LOC: RAD 15:34
PROVIDERS: ATTEND Internal Medicine Medical Oncology
DX: C91.10 Chronic lymphocytic leukemia of B-cell type not having achieved remission (principal)
CPT/HCPCS: 78815; A9552

== ENCOUNTER 2018-02-19 13:28 | Inpatient (IN) | payer MEDICARE, MEDICAID ==
[2018-02-19] MEDS ORDERED: NORMAL SALINE 1000 ML 1,000 ML IV ONE (15:52)
--- NOTE | 2018-02-19 15:52 | ER Document Report ---
ED Medical Screen (RME) - General Chief Complaint: Abnormal Lab Results Stated Complaint: ABNORMAL LABS Time Seen by Provider: 02/19/18 15:39 TRAVEL OUTSIDE OF THE [place] IN LAST 30 DAYS: No - HPI Notes: 02/19/18 15:49 Patient is a 9-year-old female with a history of lymphoma and thrombocytopenia as well as CKD (not on dialysis) who presents to the ED per Dr. Tristan to recheck her BUN and creatinine as her labs last week significantly elevated from her normal. He sent her to the ED for fluids, recheck her labs, and possible admission if needed. Last chemotherapy was 2 months ago. She is also followed by Dr. Smith. Patient states that she otherwise feels well with no new concerns or complaints. She is urinating. Denies any headache, fever, changes in vision/speech/mentation/hearing, URI, sore throat, chest pain, palpitations, syncope, cough, shortness of breath, wheeze, dyspnea, abdominal pain, nausea/vomiting/diarrhea, urinary retention, dysuria, hematuria, or rash. I have treated and performed a rapid initial assessment of this patient. A comprehensive ED assessment and evaluation of the patient, analysis of test results and completion of medical decision making process will be conducted by additional ED providers. PHYSICAL EXAMINATION: GENERAL: Well-appearing, well-nourished and in no acute distress. A&Ox4. Answers questions appropriately. LUNGS: Breath sounds clear to auscultation bilaterally and equal. No wheezes rales or rhonchi. HEART: Regular rate and rhythm without murmurs, rubs, gallops. Extremities: No cyanosis, clubbing, or edema b/l. NEUROLOGICAL: Normal speech, normal gait. PSYCH: Normal mood, normal affect. - Related Data Allergies/Adverse Reactions: No Known Allergies Allergy (Verified 02/19/18 13:30) Past Medical History - Past Medical History Cardiac Medical History: Reports: Hx Hypertension Denies: Hx Heart Attack Pulmonary Medical History: Reports: Hx Bronchitis, Hx COPD, Hx Pneumonia Denies: Hx Asthma, Hx Tuberculosis Neurological Medical History: Denies: Hx Cerebrovascular Accident, Hx Seizures Renal/ Medical History: Denies: Hx Peritoneal Dialysis Malignancy Medical History: Reports: Hx Leukemia - chronic lymphocytic leukemia Musculoskeltal Medical History: Reports Hx Arthritis - osteoarthritis Psychiatric Medical History: Denies: Hx Depression Infectious Medical History: Reports: Hx MRSA Past Surgical History: Reports: Hx Abdominal Surgery - spleenectomy. Denies: Hx Bowel Surgery - Immunizations Hx Diphtheria, Pertussis, Tetanus Vaccination: Yes History of Influenza Vaccine for 03/2017 - 08/2017 Season: Yes Influenza Administration Date for 03/2017 - 08/2017 Season: 03/18/17 Physical Exam - Vital signs Vitals: Temp Pulse Resp BP Pulse Ox 97.5 F 61 16 135/71 H 95 02/19/18 13:59 02/19/18 13:59 02/19/18 13:59 02/19/18 13:59 02/19/18 13:59 Course - Vital Signs Vital signs: Temp Pulse Resp BP Pulse Ox 97.5 F 61 16 135/71 H 95 02/19/18 13:59 02/19/18 13:59 02/19/18 13:59 02/19/18 13:59 02/19/18 13:59 Doctor's Discharge - Discharge Referrals: GABRIELLE SMITH MD [Primary Care Provider] - Follow up as needed
[2018-02-19 17:30] LABS: APPEARANCE,URINE CLEAR; BILIRUBIN,URINE NEGATIVE (NEGATIVE); COLOR,URINE STRAW; GLUCOSE, URINE NEGATIVE (NEGATIVE); KETONES,URINE NEGATIVE (NEGATIVE); LEUKOCYTE ESTERASE,URINE NEGATIVE (NEGATIVE); NITRITE,URINE NEGATIVE (NEGATIVE); PROTEIN,URINE NEGATIVE (NEGATIVE); URINE SPECIFIC GRAVITY 1.009; UROBILINOGEN,URINE NEGATIVE mg/dL (<2.0)
[2018-02-19 19:48] LABS: ABSOLUTE MONOCYTES (AUTO) 0.1 10^3/uL (0.1-1.4); ABSOLUTE NEUT (AUTO) 3.9 10^3/uL (1.7-8.2); BASOPHILS % (AUTO) 0.8 % (0-2); HEMATOCRIT 35.5 % (36.0-47.0); HEMOGLOBIN 11.8 g/dL (12.0-15.5); LYMPHOCYTES % (AUTO) 32.9 % (13-45); MEAN CORPUSCULAR HEMOGLOBIN 32.5 pg (27.0-33.4); MEAN CORPUSCULAR HGB CONC 33.1 g/dL (32.0-36.0); MEAN CORPUSCULAR VOLUME 98 fl (80-97); MONOCYTES % (AUTO) 1.3 % (3-13); PLATELET COUNT 210 10^3/uL (150-450); RED BLOOD COUNT 3.62 10^6/uL (3.72-5.28); RED CELL DISTRIBUTION WIDTH 15.6 % (11.5-14.0); TOTAL CELLS COUNTED % (AUTO) 100 %; WHITE BLOOD COUNT 5.9 10^3/uL (4.0-10.5)
[2018-02-19 20:11] LABS: ALANINE AMINOTRANSFERASE 11 U/L (9-52); ALBUMIN 3.8 g/dL (3.5-5.0); ALKALINE PHOSPHATASE 90 U/L (38-126); ANION GAP 11 (5-19); ASPARTATE AMINO TRANSFERASE 25 U/L (14-36); BILIRUBIN,DIRECT 0.3 mg/dL (0.0-0.4); BILIRUBIN,TOTAL 0.4 mg/dL (0.2-1.3); BLOOD UREA NITROGEN 66 mg/dL (7-20); CALCIUM 9.3 mg/dL (8.4-10.2); CARBON DIOXIDE 17 mmol/L (22-30); CHLORIDE 113 mmol/L (98-107); GLUCOSE 123 mg/dL (75-110); SODIUM 140.8 mmol/L (137-145); TOTAL PROTEIN 7.9 g/dL (6.3-8.2)
[2018-02-19 20:29] LABS: POTASSIUM 6.4 mmol/L (3.6-5.0)
[2018-02-19] MEDS ORDERED: CALCIUM GLUCONATE 1000 MG/10 ML INJ IV ONE (21:38)
[2018-02-19] MEDS ORDERED: INSULIN REG, HUMAN 100 UNIT/ML 3 ML VIAL (PYX) IV ONE (21:39)
[2018-02-19] MEDS ORDERED: SODIUM POLYSTYRENE SULFONATE 15 GM/60 ML PO ONE (21:39)
[2018-02-19] MEDS ORDERED: DEXTROSE 50%-WATER 25 GM/50 ML DISP.SYRIN IV ONE (21:39)
[2018-02-19] MEDS ORDERED: ALBUTEROL SULFATE 0.083% NEB 2.5 MG/3 ML AMPUL NEB ONE (21:39)
[2018-02-20] LABS: ANION GAP 12 (5-19); BLOOD UREA NITROGEN 65 mg/dL (7-20); CALCIUM 10.9 mg/dL (8.4-10.2); CARBON DIOXIDE 14 mmol/L (22-30); CHLORIDE 112 mmol/L (98-107); SODIUM 137.6 mmol/L (137-145)
[2018-02-20 00:54] LABS: POTASSIUM 4.5 mmol/L (3.6-5.0)
[2018-02-20 00:55] LABS: GLUCOSE 412 mg/dL (75-110)
--- NOTE | 2018-02-20 01:18 | ER Document Report ---
ED General - General Chief Complaint: Abnormal Lab Results Stated Complaint: ABNORMAL LABS Time Seen by Provider: 02/19/18 15:39 Mode of Arrival: Ambulatory Information source: Patient Notes: This is a 72-year-old female with a history of COPD, hypertension, lymphoma ( last chemotherapy 3 months ago), chronic kidney disease. Patient resents to the emergency room with increased fatigue, generalized weakness. Patient denies any abdominal pain. She denies any chest pain or shortness of breath. TRAVEL OUTSIDE OF THE [place] IN LAST 30 DAYS: No - HPI Onset: Last week Onset/Duration: Gradual Quality of pain: No pain Severity: None Pain Level: Denies Associated symptoms: denies: Chest pain, Fever, Shortness of breath Exacerbated by: Denies Relieved by: Denies Similar symptoms previously: No Recently seen / treated by doctor: Yes - Related Data Allergies/Adverse Reactions: No Known Allergies Allergy (Verified 02/19/18 13:30) Past Medical History - General Information source: Patient - Social History Smoking Status: Former Smoker Cigarette use (# per day): No Chew tobacco use (# tins/day): No Smoking Education Provided: No Frequency of alcohol use: None Drug Abuse: None Lives with: Family Family History: None, Hypertension Patient has suicidal ideation: No Patient has homicidal ideation: No - Past Medical History Cardiac Medical History: Reports: Hx Hypertension Denies: Hx Heart Attack Pulmonary Medical History: Reports: Hx Bronchitis, Hx COPD, Hx Pneumonia Denies: Hx Asthma, Hx Tuberculosis Neurological Medical History: Denies: Hx Cerebrovascular Accident, Hx Seizures Renal/ Medical History: Denies: Hx Peritoneal Dialysis Malignancy Medical History: Reports: Hx Leukemia - chronic lymphocytic leukemia Musculoskeletal Medical History: Reports Hx Arthritis - osteoarthritis Psychiatric Medical History: Denies: Hx Depression Infectious Medical History: Reports: Hx MRSA Past Surgical History: Reports: Hx Abdominal Surgery - spleenectomy. Denies: Hx Bowel Surgery - Immunizations Hx Diphtheria, Pertussis, Tetanus Vaccination: Yes Hx Pneumococcal Vaccination: 08/18/11 Review of Systems - Review of Systems Constitutional: denies: Chills, Fever EENT: No symptoms reported Cardiovascular: No symptoms reported Respiratory: No symptoms reported Gastrointestinal: No symptoms reported Genitourinary: No symptoms reported Female Genitourinary: No symptoms reported Musculoskeletal: No symptoms reported Skin: No symptoms reported Hematologic/Lymphatic: No symptoms reported Neurological/Psychological: Weakness Physical Exam - Vital signs Vitals: Temp Pulse Resp BP Pulse Ox 97.5 F 61 16 135/71 H 95 02/19/18 13:59 02/19/18 13:59 02/19/18 13:59 02/19/18 13:59 02/19/18 13:59 Notes: Physical exam: GENERAL:-year-old female, alert and oriented 3, appears mildly dehydrated HEAD: Atraumatic, normocephalic. EYES: Pupils equal round and reactive to light, extraocular movements intact, sclera anicteric, conjunctiva are normal. ENT: TMs normal, nares patent, oropharynx clear without exudates. Dry mucous membranes. NECK: Normal range of motion, supple without obvious mass or JVD. LUNGS: Breath sounds clear to auscultation bilaterally and equal. No wheezes rales or rhonchi. HEART: Regular rate and rhythm without murmurs, rubs or gallops. ABDOMEN: Soft, normoactive bowel sounds. No tenderness to palpation. No guarding, no rebound. No masses appreciated. EXTREMITIES: Normal range of motion, no pitting or edema. No clubbing or cyanosis. NEUROLOGICAL: Cranial nerves II through XII grossly intact. Normal speech, moving all extremities. PSYCH: Normal mood, normal affect. SKIN: Warm, Dry, normal turgor, no rashes or lesions noted. Course - Vital Signs Vital signs: Temp Pulse Resp BP Pulse Ox 97.4 F 61 22 H 104/60 97 02/20/18 00:40 02/19/18 13:59 02/20/18 03:00 02/20/18 03:00 02/20/18 03:00 - Laboratory Result Diagrams: 02/19/18 19:29 02/19/18 23:30 Laboratory results interpreted by me: 02/19/18 02/19/18 02/19/18 19:29 19:29 23:30 RBC 3.62 L Hgb 11.8 L Hct 35.5 L MCV 98 H RDW 15.6 H Monocytes % 1.3 L Potassium 6.4 H* Chloride 113 H 112 H Carbon Dioxide 17 L 14 L BUN 66 H 65 H Creatinine 3.28 H 2.93 H Est GFR ( Amer) 17 L 19 L Est GFR (Non-Af Amer) 14 L 16 L Glucose 123 H 412 H* Calcium 10.9 H - EKG Interpretation by Me Rate: Bradycardia Rhythm: NSR - EKG shows sinus bradycardia with a ventricular rate of 51, T waves appear more prominent in the anterior leads, but not significantly different from an EKG in July. Critical Care Note - Critical Care Note Total time excluding time spent on procedures (mins): 60 Discharge - Discharge Clinical Impression: Acute renal failure, Hyperkalemia Condition: Stable Disposition: ADMITTED INPATIENT Admitting Provider: [facility] Unit Admitted: Telemetry
[2018-02-20] MEDS ORDERED: NORMAL SALINE 1000 ML 1,000 ML IV PRN (01:21)
[2018-02-20 02:14] LABS: ARTERIAL BLOOD BASE EXCESS -15.1 mmol/L; ARTERIAL BLOOD H2CO3 0.98 mmol/L (1.05-1.35); ARTERIAL BLOOD O2 SATURATION 95.2 % (94-98); ARTERIAL BLOOD PCO2 32.4 mmHg (35-45); ARTERIAL BLOOD PO2 91.9 mmHg (80-100)
[2018-02-20 02:15] LABS: ARTERIAL BLOOD FIO2 ROOM AIR
[2018-02-20 02:17] LABS: ARTERIAL BLOOD PH 7.19 (7.35-7.45)
[2018-02-20] MEDS ORDERED: DEXTROSE 5%-WATER 1000 ML 1,000 ML with SODIUM BICARBONATE 100 MEQ IV PRN ×2 (02:28)
[2018-02-20] MEDS ORDERED: INSULIN REG, HUMAN 100 UNIT/ML 3 ML VIAL (PYX) SUBCUT PRN (02:32)
[2018-02-20] MEDS ORDERED: DEXTROSE 40% GEL 15 GM TUBE PO PRN ×2 (02:32)
[2018-02-20] MEDS ORDERED: GLUCAGON,HUMAN RECOMB 1 MG INJ IM PRN (02:32)
[2018-02-20] MEDS ORDERED: DEXTROSE 50%-WATER 25 GM/50 ML DISP.SYRIN IV PRN ×2 (02:32)
[2018-02-20 02:34] LABS: INTERNATIONAL RATION (INR) 1.05; PROTHROMBIN TIME 14.2 SEC (11.4-15.4)
[2018-02-20 02:35] LABS: CREATINE KINASE MB 0.23 ng/mL (<4.55); NT PRO BNP 245 pg/mL (5-900)
[2018-02-20 02:35] LABS: PARTIAL THROMBOPLASTIN TIME 25.9 SEC (23.5-35.8)
[2018-02-20 02:38] LABS: TROPONIN I < 0.012 ng/mL
[2018-02-20] MEDS ORDERED: SODIUM BICARBONATE 8.4% INJ 50 MEQ/50 ML DISP.SYRIN ONE (02:41)
[2018-02-20 02:48] LABS: FREE T4 (FREE THYROXINE) 0.93 ng/dL (0.78-2.19)
[2018-02-20 02:52] LABS: CREATINE KINASE MB 0.36 ng/mL (<4.55)
[2018-02-20 03:02] LABS: THYROID STIMULATING HORMONE 0.8 uIU/mL (0.47-4.68)
[2018-02-20 03:06] LABS: TROPONIN I < 0.012 ng/mL
[2018-02-20 03:30] LABS: URINE AMPHETAMINES SCREEN NEGATIVE; URINE BARBITURATES SCREEN NEGATIVE; URINE BENZODIAZEPINES SCREEN NEGATIVE; URINE COCAINE SCREEN NEGATIVE; URINE MARIJUANA (THC) SCREEN NEGATIVE; URINE METHADONE SCREEN NEGATIVE; URINE PHENCYCLIDINE SCREEN NEGATIVE
--- NOTE | 2018-02-20 03:56 | RADIOLOGY REPORT (SQ) ---
EXAM DESCRIPTION: XR CHEST 2 VIEWS COMPLETED DATE/TME: 02/20/2018 00:00 CLINICAL HISTORY: COMBINED METABOLIC AND RESPIRATORY ACIDOSIS COMPARISON: None. FINDINGS: Frontal and lateral views of the chest. Right subclavian Mediport with tip in the SVC. Atherosclerotic calcification and tortuosity of thoracic aorta. Heart is not enlarged. Chronic appearing interstitial opacities in the lung bases may represent scarring. No pneumothorax or large effusion. Hyperinflation. No acute osseous abnormality. Postoperative change in the upper abdomen. IMPRESSION: 1. No acute pulmonary process identified. Findings suggest obstructive lung disease.
[2018-02-20 04:12] LABS: LIPASE 199.5 U/L (23-300); PHOSPHORUS 4.5 mg/dL (2.5-4.5)
[2018-02-20] MEDS: HEPARIN SOD (PORCINE) 5,000 UNIT/ML 1 ML SYRINGE SUBCUT SCH ×3 (05:34→21:38)
--- NOTE | 2018-02-20 07:30 | EKG REPORT ---
SEVERITY:- NORMAL ECG - SINUS RHYTHM : Confirmed by: Ruiz Oconnor MD 20-Feb-2018 07:30:20
--- NOTE | 2018-02-20 08:25 | RADIOLOGY REPORT (SQ) ---
EXAM DESCRIPTION: [employer] COMPLETED DATE/TIME: 02/20/2018 3:17 am REASON FOR STUDY: ACUTE KIDNEY INJURY COMPARISON: 04/20/2017 TECHNIQUE: Dynamic and static grayscale images acquired of the kidneys and bladder and recorded on P ACS. Additional selected color Doppler and spectral images recorded. LIMITATIONS: Body habitus. Overlying bowel gas. FINDINGS: RIGHT KIDNEY: 7.3 cm. Increased cortical echogenicity. No solid or suspicious masses. No hydronephrosis. No calcifications. LEFT KIDNEY: 8.4 cm Increased cortical echogenicity. No solid or suspicious masses. No hydrone phrosis. No calcifications. BLADDER: Decompressed with Chery catheter. OTHER: No other significant finding. IMPRESSION: CHRONIC MEDICAL RENAL DISEASE. NO HYDRONEPHROSIS. TECHNICAL DOCUMENTATION: JOB ID: [id number] [email or web address]- All Rights Reserved Reading location - IP/workstation name: [email or web address]
[2018-02-20 08:54] LABS: ALANINE AMINOTRANSFERASE 18 U/L (9-52); ALBUMIN 3.3 g/dL (3.5-5.0); ALKALINE PHOSPHATASE 73 U/L (38-126); ANION GAP 11 (5-19); ASPARTATE AMINO TRANSFERASE 28 U/L (14-36); BILIRUBIN,DIRECT 0.4 mg/dL (0.0-0.4); BILIRUBIN,TOTAL 0.4 mg/dL (0.2-1.3); BLOOD UREA NITROGEN 64 mg/dL (7-20); CALCIUM 8.7 mg/dL (8.4-10.2); CARBON DIOXIDE 17 mmol/L (22-30); CHLORIDE 114 mmol/L (98-107); GLUCOSE 110 mg/dL (75-110); POTASSIUM 4.8 mmol/L (3.6-5.0); SODIUM 141.9 mmol/L (137-145); TOTAL PROTEIN 6.8 g/dL (6.3-8.2)
[2018-02-20 09:06] LABS: CREATINE KINASE MB 0.54 ng/mL (<4.55)
[2018-02-20 09:13] LABS: TROPONIN I < 0.012 ng/mL
--- NOTE | 2018-02-20 14:08 | PDOC H&P ---
History of Present Illness Admission Date/PCP: 02/20/18 01:25 ERUM HENAO MD History of Present Illness: JANET ABBOTT is a 72 year old female she has a history of chronic kidney disease stage III with base creatinine 1.46., History of chronic lymphocytic leukemia of B-cell type not achieved remission, she was in the office last week when she came for follow-up evaluation, she complained of fatigue, comprehensive metabolic panel was done, it demonstrated serum creatinine of 3.4. She was called from home to go to emergency room for evaluation because she probably sustained acute kidney injury. In the emergency room she was evaluated, blood work was done the BUN was 66, creatinine 3.28, ABG was done on room air, pH is 7.19, PO2 91.9, bicarbonate 12, PCO2 32.4 the expected PCO2 for the degree of acidosis is 24-28 both the measured PCO2 is 32.4 consistent with combined respiratory and metabolic acidosis. So she has acute kidney injury with hyperkalemia and metabolic acidosis. 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 Past Medical History Cardiac Medical History: Reports: Hypertension Pulmonary Medical History: Reports: Bronchitis, Chronic Obstructive Pulmonary Disease (COPD), Pneumonia Renal/ Medical History: Reports: Other - Chronic kidney disease stage III Malignancy Medical History: Reports: Leukemia - chronic lymphocytic leukemia Musculoskeltal Medical History: Reports: Arthritis - osteoarthritis Infectious Medical History: Reports: Methicillin-Resistant Staph Aureus Social History Lives with: Family Smoking Status: Former Smoker Frequency of Alcohol Use: None Hx Recreational Drug Use: No Drugs: None Hx Prescription Drug Abuse: No - Advance Directive Resuscitation Status: Full Code Family History Family History: None, Hypertension Parental Family History Reviewed: Yes Children Family History Reviewed: Yes Sibling(s) Family History Reviewed.: Yes Medication/Allergy Home Medications: Montelukast Sodium [Singulair 10 mg Tablet] 10 mg PO QHS 08/04/17 Difluprednate [Durezol] 1 drop OS BID 02/20/18 Gatifloxacin [Zymaxid] 1 drop OS 02/20/18 Nepafenac [Ilevro] 1 drop OS DAILY 02/20/18 Allergies/Adverse Reactions: No Known Allergies Allergy (Verified 02/19/18 13:30) Review of Systems Constitutional: PRESENT: anorexia Eyes: ABSENT: visual disturbances Ears: ABSENT: hearing changes Cardiovascular: ABSENT: chest pain, dyspnea on exertion, edema, orthropnea, palpitations Respiratory: ABSENT: cough, hemoptysis Gastrointestinal: ABSENT: abdominal pain, constipation, diarrhea, hematemesis, hematochezia, nausea, vomiting Genitourinary: ABSENT: dysuria, hematuria Musculoskeletal: ABSENT: joint swelling Integumentary: ABSENT: rash, wounds Neurological: ABSENT: abnormal gait, abnormal speech, confusion, dizziness, focal weakness, syncope Psychiatric: ABSENT: anxiety, depression, homidical ideation, suicidal ideation Endocrine: ABSENT: cold intolerance, heat intolerance, menstrual abnormalities, polydipsia, polyuria Hematologic/Lymphatic: ABSENT: easy bleeding, easy bruising, lymphadenopathy Physical Exam Vital Signs: Temp Pulse Resp BP Pulse Ox 97.4 F 68 16 120/71 100 02/20/18 11:52 02/20/18 11:52 02/20/18 11:52 02/20/18 11:52 02/20/18 11:52 Intake & Output 02/19/18 02/20/18 02/21/18 06:59 06:59 06:59 Intake Total 692 Output Total 200 Balance 492 Weight 53.8 kg General appearance: PRESENT: cooperative Head exam: PRESENT: atraumatic, normocephalic Eye exam: PRESENT: PERRLA Ear exam: PRESENT: normal external ear exam Mouth exam: PRESENT: dry mucosa Neck exam: PRESENT: full ROM, other - Right submandibular mass Respiratory exam: PRESENT: clear to auscultation sendy Cardiovascular exam: PRESENT: RRR, +S1, +S2 Pulses: PRESENT: normal dorsalis pedis pul, +2 pedal pulses bilateral Vascular exam: PRESENT: normal capillary refill GI/Abdominal exam: PRESENT: normal bowel sounds, soft Rectal exam: PRESENT: deferred Neurological exam: PRESENT: alert, awake, oriented to person, oriented to place , oriented to time, oriented to situation, CN II-XII grossly intact Psychiatric exam: PRESENT: appropriate affect, normal mood Skin exam: PRESENT: dry, intact, warm Results Laboratory Results: 02/20/18 07:45 02/20/18 02/20/1818 01:50 02:00 07:45 Carbonic Acid 0.98 L HCO3/H2CO3 Ratio 12:1 ABG pH 7.19 L* ABG pCO2 32.4 L ABG pO2 91.9 ABG HCO3 12.0 L ABG O2 Saturation 95.2 ABG Base Excess -15.1 FiO2 ROOM AIR Sodium 141.9 Potassium 4.8 Chloride 114 H Carbon Dioxide 17 L Anion Gap 11 BUN 64 H Creatinine 2.64 H Est GFR ( Amer) 22 L Est GFR (Non-Af Amer) 18 L Glucose 110 Calcium 8.7 Total Bilirubin 0.4 AST 28 ALT 18 Alkaline Phosphatase 73 Ammonia < 8.7 L Total Protein 6.8 Albumin 3.3 L 02/20/18 02/20/18 02/20/18 01:50 01:50 07:45 Creatine Kinase < 20 L < 20 L CK-MB (CK-2) 0.36 Troponin I < 0.012 02/20/18 07:45 Creatine Kinase CK-MB (CK-2) 0.54 Troponin I < 0.012 Impressions: Chest X-Ray 02/20/18 00:00 IMPRESSION: 1. No acute pulmonary process identified. Findings suggest obstructive lung disease. Renal Ultrasound 02/20/18 00:00 IMPRESSION: CHRONIC MEDICAL RENAL DISEASE. NO HYDRONEPHROSIS. Assessment & Plan - Diagnosis (1) Acute kidney injury Is this a current diagnosis for this admission?: Yes Plan: She has acute on chronic kidney disease, she is presenting with worsening serum creatinine the kidney ultrasound was done, there is no hydronephrosis to suggest post renal etiology she has bilateral small kidneys suggesting nephrosclerosis consistent with medical renal disease the differential diagnosis includes ATN unlikely in this situation with no history of hypotension , acute interstitial nephritis, prerenal acute kidney injury, (2) Metabolic acidosis with respiratory acidosis Is this a current diagnosis for this admission?: Yes Plan: The patient is 7.1, she will be treated with bicarbonate infusion (3) Hyperkalemia Is this a current diagnosis for this admission?: Yes Plan: The hyperkalemia was corrected in the emergency room (4) Chronic lymphocytic leukemia Is this a current diagnosis for this admission?: Yes (5) Chronic obstructive pulmonary disease Qualifiers: COPD type: unspecified COPD Qualified Code(s): J44.9 - Chronic obstructive pulmonary disease, unspecified Is this a current diagnosis for this admission?: Yes Plan: Stable (6) Chronic kidney disease, stage 3 Is this a current diagnosis for this admission?: Yes Plan: History of nephrosclerosis
[2018-02-20 14:54] LABS: ARTERIAL BLOOD BASE EXCESS -7.6 mmol/L; ARTERIAL BLOOD FIO2 ROOM AIR; ARTERIAL BLOOD H2CO3 1.06 mmol/L (1.05-1.35); ARTERIAL BLOOD HCO3 17.7 mmol/L (20-24); ARTERIAL BLOOD O2 SATURATION 96.1 % (94-98); ARTERIAL BLOOD PCO2 35.3 mmHg (35-45); ARTERIAL BLOOD PH 7.32 (7.35-7.45); ARTERIAL BLOOD PO2 87.7 mmHg (80-100); ARTERIAL BLOOD TOTAL CO2 18.8 mmol/L (21-25)
[2018-02-20] MEDS: NORMAL SALINE 1000 ML 1,000 ML IV PRN (15:28)
[2018-02-21] MEDS: NORMAL SALINE 1000 ML 1,000 ML IV PRN ×3 (01:41→21:55)
--- NOTE | 2018-02-21 08:20 | EKG REPORT ---
SEVERITY:- BORDERLINE ECG - SINUS RHYTHM ATRIAL PREMATURE COMPLEX BORDERLINE ST ELEVATION, ANTEROLATERAL LEADS : Confirmed by: Ruiz Oconnor MD 21-Feb-2018 07:33:07
[2018-02-21 09:29] LABS: ALANINE AMINOTRANSFERASE 17 U/L (9-52); ALBUMIN 2.8 g/dL (3.5-5.0); ALKALINE PHOSPHATASE 68 U/L (38-126); ANION GAP 6 (5-19); ASPARTATE AMINO TRANSFERASE 20 U/L (14-36); BILIRUBIN,DIRECT 0.3 mg/dL (0.0-0.4); BILIRUBIN,TOTAL 0.5 mg/dL (0.2-1.3); BLOOD UREA NITROGEN 54 mg/dL (7-20); CARBON DIOXIDE 21 mmol/L (22-30); CHLORIDE 119 mmol/L (98-107); CHOLESTEROL 152.96 mg/dL (0-200); DIRECT LDL 97 mg/dL (<100); GLUCOSE 75 mg/dL (75-110); POTASSIUM 4.6 mmol/L (3.6-5.0); SODIUM 145.7 mmol/L (137-145); TOTAL PROTEIN 5.9 g/dL (6.3-8.2); TRIGLYCERIDES 54 mg/dL (<150); VLDL CHOLESTEROL 10.8 mg/dL (10-31)
[2018-02-21 09:42] LABS: ABSOLUTE RETICS # 0.075 10^6/uL (0.028-0.122); HEMATOCRIT 29.9 % (36.0-47.0); HEMOGLOBIN 10.1 g/dL (12.0-15.5); IRON(TIBC) 121.7 ug/dL (37-170); MEAN CORPUSCULAR HEMOGLOBIN 32.8 pg (27.0-33.4); MEAN CORPUSCULAR HGB CONC 33.6 g/dL (32.0-36.0); MEAN CORPUSCULAR VOLUME 98 fl (80-97); PLATELET COUNT 168 10^3/uL (150-450); RED BLOOD COUNT 3.06 10^6/uL (3.72-5.28); RED CELL DISTRIBUTION WIDTH 15.6 % (11.5-14.0); RETICULOCYTE COUNT (AUTO) 2.43 % (0.66-2.85); WHITE BLOOD COUNT 5.8 10^3/uL (4.0-10.5)
[2018-02-21 09:47] LABS: ABSOLUTE NEUTROPHILS# (MANUAL) 3.5 10^3/uL (1.7-8.2); BAND NEUTROPHILS % (MANUAL) 2 % (3-5); SEGMENTED NEUTROPHILS % (MAN) 58 % (42-78); TOTAL CELLS COUNTED 100
[2018-02-21 09:48] LABS: ABSOLUTE LYMPHOCYTES# (MANUAL) 1.7 10^3/uL (0.5-4.7); ABSOLUTE MONOCYTES # (MANUAL) 0.3 10^3/uL (0.1-1.4); ANISOCYTOSIS SLIGHT; BASOPHILS % (MANUAL) 1 % (0-2); EOSINOPHILS % (MANUAL) 4 % (0-6); LYMPHOCYTES % (MANUAL) 29 % (13-45); MONOCYTES % (MANUAL) 5 % (3-13); OVALOCYTES 1+; PLATELET COMMENT ADEQUATE; POIKILOCYTOSIS 1+; POLYCHROMASIA SLIGHT; TOXIC GRANULATION 1+; TOXIC VACUOLATION PRESENT
[2018-02-21] MEDS: HEPARIN SOD (PORCINE) 5,000 UNIT/ML 1 ML SYRINGE SUBCUT SCH ×3 (09:49→21:54)
--- NOTE | 2018-02-21 22:12 | PDOC PROGRESS REPORT ---
Subjective Progress Note for:: 02/21/18 Subjective:: She was seen by the bedside, she has chronic kidney disease with superimposed acute kidney injury, there is improvement of kidney function with hydration. There is also associated secondary hyperparathyroidism, she was seen by the bedside, consultation will be obtained from nephrology, she prefers Dr. Sanchez Reason For Visit: ACUTE KIDNEY INJURY, HYPERKALEMIA, CLL Physical Exam Vital Signs: Temp Pulse Resp BP Pulse Ox 97.8 F 59 L 20 132/64 H 99 02/21/18 19:27 02/21/18 19:27 02/21/18 19:27 02/21/18 19:27 02/21/18 19:27 Intake & Output 02/20/18 02/21/18 02/22/18 06:59 06:59 06:59 Intake Total 692 2650 2572 Output Total 200 1675 1275 Balance 273 711 4949 Weight 53.8 kg 55.3 kg General appearance: PRESENT: no acute distress Eye exam: PRESENT: PERRLA Respiratory exam: PRESENT: clear to auscultation sendy Cardiovascular exam: PRESENT: +S1, +S2 GI/Abdominal exam: PRESENT: soft Neurological exam: PRESENT: alert Results Laboratory Results: 02/21/18 05:26 02/21/18 05:26 02/21/18 02/21/18 05:26 05:26 WBC 5.8 RBC 3.06 L Hgb 10.1 L Hct 29.9 L MCV 98 H MCH 32.8 MCHC 33.6 RDW 15.6 H Plt Count 168 Seg Neutrophils % Not Reportable Lymphocytes % Not Reportable Monocytes % Not Reportable Eosinophils % Not Reportable Basophils % Not Reportable Absolute Neutrophils Not Reportable Absolute Lymphocytes Not Reportable Absolute Monocytes Not Reportable Absolute Eosinophils Not Reportable Absolute Basophils Not Reportable Retic Count (auto) 2.43 Absolute Retic 0.075 Sodium 145.7 H Potassium 4.6 Chloride 119 H Carbon Dioxide 21 L Anion Gap 6 BUN 54 H Creatinine 2.50 H Est GFR ( Amer) 23 L Est GFR (Non-Af Amer) 19 L Glucose 75 Calcium 8.0 L Iron 121.7 TIBC 542 H % Saturation 22 Ferritin 576.00 H Total Bilirubin 0.5 AST 20 ALT 17 Alkaline Phosphatase 68 Total Protein 5.9 L Albumin 2.8 L Triglycerides 54 Cholesterol 152.96 LDL Cholesterol Direct 97 VLDL Cholesterol 10.8 HDL Cholesterol 33 L Vitamin B12 509.0 Folate 4.20 02/20/18 02/20/18 02/20/18 01:50 01:50 07:45 Creatine Kinase < 20 L < 20 L CK-MB (CK-2) 0.36 Troponin I < 0.012 02/20/18 07:45 Creatine Kinase CK-MB (CK-2) 0.54 Troponin I < 0.012 Impressions: Chest X-Ray 02/20/18 00:00 IMPRESSION: 1. No acute pulmonary process identified. Findings suggest obstructive lung disease. Renal Ultrasound 02/20/18 00:00 IMPRESSION: CHRONIC MEDICAL RENAL DISEASE. NO HYDRONEPHROSIS. Assessment & Plan - Diagnosis (1) Acute kidney injury Is this a current diagnosis for this admission?: Yes Plan: Continue hydration continue hydration (2) Metabolic acidosis with respiratory acidosis Is this a current diagnosis for this admission?: Yes (3) Hyperkalemia Is this a current diagnosis for this admission?: Yes (4) Chronic lymphocytic leukemia Is this a current diagnosis for this admission?: Yes (5) Chronic obstructive pulmonary disease Qualifiers: COPD type: unspecified COPD Qualified Code(s): J44.9 - Chronic obstructive pulmonary disease, unspecified Is this a current diagnosis for this admission?: Yes (6) Chronic kidney disease, stage 3 Is this a current diagnosis for this admission?: Yes (7) Secondary hyperparathyroidism Is this a current diagnosis for this admission?: Yes
[2018-02-22 06:33] LABS: HEMATOCRIT 31.8 % (36.0-47.0); HEMOGLOBIN 10.6 g/dL (12.0-15.5); MEAN CORPUSCULAR HEMOGLOBIN 32.8 pg (27.0-33.4); MEAN CORPUSCULAR HGB CONC 33.4 g/dL (32.0-36.0); MEAN CORPUSCULAR VOLUME 98 fl (80-97); PLATELET COUNT 167 10^3/uL (150-450); RED BLOOD COUNT 3.24 10^6/uL (3.72-5.28); RED CELL DISTRIBUTION WIDTH 15.9 % (11.5-14.0); WHITE BLOOD COUNT 6.4 10^3/uL (4.0-10.5)
[2018-02-22 06:52] LABS: ABSOLUTE LYMPHOCYTES# (MANUAL) 3.3 10^3/uL (0.5-4.7); ABSOLUTE MONOCYTES # (MANUAL) 0.3 10^3/uL (0.1-1.4); ABSOLUTE NEUTROPHILS# (MANUAL) 2.6 10^3/uL (1.7-8.2); BAND NEUTROPHILS % (MANUAL) 3 % (3-5); BASOPHILS % (MANUAL) 0 % (0-2); EOSINOPHILS % (MANUAL) 3 % (0-6); LYMPHOCYTES % (MANUAL) 51 % (13-45); MONOCYTES % (MANUAL) 5 % (3-13); SEGMENTED NEUTROPHILS % (MAN) 38 % (42-78); TOTAL CELLS COUNTED 100
[2018-02-22 06:53] LABS: ANISOCYTOSIS SLIGHT; PLATELET COMMENT ADEQUATE; TOXIC GRANULATION SLIGHT
[2018-02-22] MEDS: HEPARIN SOD (PORCINE) 5,000 UNIT/ML 1 ML SYRINGE SUBCUT SCH ×3 (07:46→22:26)
[2018-02-22] MEDS: NORMAL SALINE 1000 ML 1,000 ML IV PRN ×2 (07:49→18:47)
[2018-02-22 18:14] LABS: ALANINE AMINOTRANSFERASE 17 U/L (9-52); ALBUMIN 3.2 g/dL (3.5-5.0); ALKALINE PHOSPHATASE 76 U/L (38-126); ANION GAP 11 (5-19); ASPARTATE AMINO TRANSFERASE 25 U/L (14-36); BILIRUBIN,DIRECT 0.4 mg/dL (0.0-0.4); BILIRUBIN,TOTAL 0.5 mg/dL (0.2-1.3); BLOOD UREA NITROGEN 41 mg/dL (7-20); CALCIUM 8.6 mg/dL (8.4-10.2); CARBON DIOXIDE 17 mmol/L (22-30); CHLORIDE 117 mmol/L (98-107); GLUCOSE 74 mg/dL (75-110); POTASSIUM 4.7 mmol/L (3.6-5.0); SODIUM 144.7 mmol/L (137-145); TOTAL PROTEIN 6.7 g/dL (6.3-8.2)
--- NOTE | 2018-02-22 21:01 | PDOC PROGRESS REPORT ---
Subjective Progress Note for:: 02/22/18 Subjective:: Patient was seen by the bedside, she was seen by nephrology. The kidney function seems stabilized Reason For Visit: ACUTE KIDNEY INJURY, HYPERKALEMIA, CLL Physical Exam Vital Signs: Temp Pulse Resp BP Pulse Ox 97.7 F 55 L 24 H 138/60 H 97 02/22/18 19:22 02/22/18 19:22 02/22/18 19:22 02/22/18 19:22 02/22/18 19:22 Intake & Output 02/21/18 02/22/18 02/23/18 06:59 06:59 06:59 Intake Total 2650 2572 3015 Output Total 1675 2175 1525 Balance 141 580 0815 Weight 55.3 kg 55.4 kg General appearance: PRESENT: no acute distress, well-developed, well-nourished Head exam: PRESENT: atraumatic, normocephalic Eye exam: PRESENT: conjunctiva pink, EOMI, PERRLA Ear exam: PRESENT: normal external ear exam Mouth exam: PRESENT: moist, tongue midline Neck exam: PRESENT: full ROM Respiratory exam: PRESENT: clear to auscultation sendy Cardiovascular exam: PRESENT: RRR, +S1, +S2 Pulses: PRESENT: normal dorsalis pedis pul, +2 pedal pulses bilateral Vascular exam: PRESENT: normal capillary refill GI/Abdominal exam: PRESENT: normal bowel sounds, soft Rectal exam: PRESENT: deferred Neurological exam: PRESENT: alert, awake, oriented to person, oriented to place , oriented to time, oriented to situation, CN II-XII grossly intact Psychiatric exam: PRESENT: appropriate affect, normal mood Skin exam: PRESENT: dry, intact, warm Results Laboratory Results: 02/22/18 06:00 02/22/18 17:34 02/22/18 02/22/18 06:00 17:34 WBC 6.4 RBC 3.24 L Hgb 10.6 L Hct 31.8 L MCV 98 H MCH 32.8 MCHC 33.4 RDW 15.9 H Plt Count 167 Seg Neutrophils % Not Reportable Lymphocytes % Not Reportable Monocytes % Not Reportable Eosinophils % Not Reportable Basophils % Not Reportable Absolute Neutrophils Not Reportable Absolute Lymphocytes Not Reportable Absolute Monocytes Not Reportable Absolute Eosinophils Not Reportable Absolute Basophils Not Reportable Sodium 144.7 Potassium 4.7 Chloride 117 H Carbon Dioxide 17 L Anion Gap 11 BUN 41 H Creatinine 2.17 H Est GFR ( Amer) 27 L Est GFR (Non-Af Amer) 22 L Glucose 74 L Calcium 8.6 Total Bilirubin 0.5 AST 25 ALT 17 Alkaline Phosphatase 76 Total Protein 6.7 Albumin 3.2 L 02/20/18 02/20/18 02/20/18 01:50 01:50 07:45 Creatine Kinase < 20 L < 20 L CK-MB (CK-2) 0.36 Troponin I < 0.012 02/20/18 07:45 Creatine Kinase CK-MB (CK-2) 0.54 Troponin I < 0.012 Impressions: Chest X-Ray 02/20/18 00:00 IMPRESSION: 1. No acute pulmonary process identified. Findings suggest obstructive lung disease. Renal Ultrasound 02/20/18 00:00 IMPRESSION: CHRONIC MEDICAL RENAL DISEASE. NO HYDRONEPHROSIS. Assessment & Plan - Diagnosis (1) Acute kidney injury Is this a current diagnosis for this admission?: Yes (2) Metabolic acidosis with respiratory acidosis Is this a current diagnosis for this admission?: Yes (3) Hyperkalemia Is this a current diagnosis for this admission?: Yes (4) Chronic lymphocytic leukemia Is this a current diagnosis for this admission?: Yes (5) Chronic obstructive pulmonary disease Qualifiers: COPD type: unspecified COPD Qualified Code(s): J44.9 - Chronic obstructive pulmonary disease, unspecified Is this a current diagnosis for this admission?: Yes (6) Chronic kidney disease, stage 3 Is this a current diagnosis for this admission?: Yes (7) Secondary hyperparathyroidism Is this a current diagnosis for this admission?: Yes (8) Essential (primary) hypertension Is this a current diagnosis for this admission?: Yes
--- NOTE | 2018-02-22 21:48 | PDOC CONSULTATION ---
Consultation Consult Date: 02/22/18 Attending physician:: ERUM HENAO Consult reason:: I was asked to see the patient because of acute kidney injury on top of known chronic kidney disease. History of Present Illness Admission Date/PCP: 02/20/18 01:25 ERUM HENAO MD History of Present Illness: JANET ABBOTT is a 72 year old female with history of chronic kidney disease stage III, hypertension, B type CLL status post chemotherapy who was admitted on 02/20/2018 due to abnormal labs, fatigue and generalized weakness. Patient was seen by Dr. Henao in this clinic a week prior to admission and had some blood work done. Blood work indicated worsening of kidney function with creatinine of 3.4 so patient was advised to go to the emergency room for admission. Upon presentation patient had a BUN of 66 and creatinine of 3.28 with estimated GFR of 17, potassium of 6.4, albumin of 3.8, calcium of 9.3 and an ABG with a pH of 7.19 with bicarbonate of 17. Patient was subsequently admitted for acute kidney injury and hyperkalemia. She was treated with careful IV fluid hydration. Previous records indicated that the patient's baseline creatinine ranged anywhere between 1.4-1.7 with estimated GFR ranging from 33-43. Patient is nonoliguric and has been making adequate amount of urine throughout admission. Workup included an elevated PTH of 499.5, good iron panel, transient elevated calcium of 10.9 which is now normal at 8.6, and normal chest x-ray, and a kidney ultrasound. The kidney ultrasound showed bilateral small kidneys with the right kidney measuring 7.3 cm and left kidney about 8.4 cm. This shows increased cortical echogenicity without any solid or suspicious masses, hydronephrosis nor calcifications bilaterally. This is consistent with chronic kidney disease. Patient claims that prior to admission she thought she has been drinking plenty of water and eating good but may not be enough. She admits feeling weak. Her last chemotherapy was 2 months ago and she said she has been on chemotherapy for about 3 years for her CLL. Currently she has a right submandibular mass. She said she became aware of her kidney issue about couple weeks ago. Otherwise she denied any previous kidney problems that she is aware of. She denied any history of kidney stones nor history of hepatitis. She denies any fever, colds nor cough. She denied any diarrhea, nausea vomiting or abdominal pain. She denied any new medications nor any contrast given to her recently. She denied any leg swelling, chest pain or shortness of breath upon admission. Currently the patient is feeling better. She is actually wondering when she can go home. Her kidney function is improved with a BUN of 41, creatinine 2.17 and estimated GFR of 27% which is very near her baseline. Her potassium is now normal at 4.7, a little bit low albumin of 2.2 and normal calcium at 8.6. Her urinalysis did not show any proteinuria nor hematuria. She denies any further complaints. Past Medical History Cardiac Medical History: Reports: Hypertension-primary Pulmonary Medical History: Reports: Bronchitis, Chronic Obstructive Pulmonary Disease (COPD), Pneumonia Renal/ Medical History: Reports: Chronic Kidney Disease Stage III, Other - Chronic kidney disease stage III Malignancy Medical History: Reports: Leukemia - chronic lymphocytic leukemia Musculoskeltal Medical History: Reports: Arthritis - osteoarthritis Infectious Medical History: Reports: Methicillin-resist Staph Aureus Past Surgical History Past Surgical History: Reports: Splenectomy Social History Information Source: Patient Lives with: Alone Smoking Status: Former Smoker Frequency of Alcohol Use: None Hx Recreational Drug Use: No Drugs: None Hx Prescription Drug Abuse: No - Advance Directive Resuscitation Status: Full Code Family History Family History: Chronic Kidney Disease - Her brother was on dialysis who last year in 2017, DM - Brother, Hypertension - Brother, Malignancy - Biological father Parental Family History Reviewed: Yes Children Family History Reviewed: Yes Sibling(s) Family History Reviewed.: Yes Medication/Allergy Home Medications: Montelukast Sodium [Singulair 10 mg Tablet] 10 mg PO QHS 08/04/17 Difluprednate [Durezol] 1 drop OS BID 02/20/18 Gatifloxacin [Zymaxid] 1 drop OS 02/20/18 Nepafenac [Ilevro] 1 drop OS DAILY 02/20/18 Allergies/Adverse Reactions: No Known Allergies Allergy (Verified 02/19/18 13:30) Review of Systems All systems: reviewed and no additional remarkable complaints except as stated Review of Systems: Constitutional: ABSENT: chills, fever(s), headache(s), weight gain, weight loss ; admits fatigue and weakness Eyes: ABSENT: visual disturbances Ears: ABSENT: hearing changes Cardiovascular: ABSENT: chest pain, dyspnea on exertion, edema, orthropnea, palpitations Respiratory: ABSENT: cough, dyspnea, hemoptysis Gastrointestinal: ABSENT: abdominal pain, constipation, diarrhea, hematemesis, hematochezia, nausea, vomiting Genitourinary: ABSENT: dysuria, hematuria Musculoskeletal: ABSENT: joint swelling Integumentary: ABSENT: rash, wounds Neurological: ABSENT: abnormal gait, abnormal speech, confusion, dizziness, focal weakness, numbness, syncope Psychiatric: ABSENT: anxiety, depression Endocrine: ABSENT: cold intolerance, heat intolerance, polydipsia, polyuria Hematologic/Lymphatic: ABSENT: easy bleeding, easy bruising; admits lymphadenopathy Physical Exam Vital Signs: Temp Pulse Resp BP Pulse Ox 97.7 F 55 L 24 H 138/60 H 97 02/22/18 19:22 02/22/18 19:22 02/22/18 19:22 02/22/18 19:22 02/22/18 19:22 Intake & Output 02/21/18 02/22/18 02/23/18 06:59 06:59 06:59 Intake Total 2650 2572 3015 Output Total 1675 2175 1525 Balance 149 033 7508 Weight 55.3 kg 55.4 kg Exam: General appearance: no acute distress, cooperative, well-developed, well- nourished Head exam: PRESENT: atraumatic, normocephalic Eye exam: PRESENT: Conjunctiva pale, EOMI, PERRLA. ABSENT: conjunctival injection, scleral icterus Mouth exam: PRESENT: moist, neck supple, tongue midline Neck exam: PRESENT: full ROM. Positive right submandibular mass ABSENT: carotid bruit, JVD, lymphadenopathy, thyromegaly Respiratory exam: PRESENT: clear to auscultation bilaterally. ABSENT: rales, rhonchi, stridor, wheezes Cardiovascular exam: PRESENT: RRR, +S1, +S2. ABSENT: systolic murmur Pulses: PRESENT: normal radial pulses, normal dorsalis pedis pulses GI/Abdominal exam: PRESENT: normal bowel sounds, soft. ABSENT: guarding, mass, tenderness Rectal exam: deferred Extremities exam: PRESENT: full ROM. ABSENT: calf tenderness, pedal edema Musculoskeletal: PRESENT: full ROM. ABSENT: deformity Neurological exam: PRESENT: alert, Awake, Oriented to person, Oriented to place , Oriented to time, reflexes normal, CN II-XII grossly intact. ABSENT: motor sensory deficit Psychiatric exam: PRESENT: appropriate affect, normal mood. ABSENT: homicidal ideation, suicidal ideation Skin exam: PRESENT: intact, dry, warm. ABSENT: rash Results Laboratory Results: 02/22/18 06:00 02/22/18 17:34 02/22/18 02/22/18 06:00 17:34 WBC 6.4 RBC 3.24 L Hgb 10.6 L Hct 31.8 L MCV 98 H MCH 32.8 MCHC 33.4 RDW 15.9 H Plt Count 167 Seg Neutrophils % Not Reportable Lymphocytes % Not Reportable Monocytes % Not Reportable Eosinophils % Not Reportable Basophils % Not Reportable Absolute Neutrophils Not Reportable Absolute Lymphocytes Not Reportable Absolute Monocytes Not Reportable Absolute Eosinophils Not Reportable Absolute Basophils Not Reportable Sodium 144.7 Potassium 4.7 Chloride 117 H Carbon Dioxide 17 L Anion Gap 11 BUN 41 H Creatinine 2.17 H Est GFR ( Amer) 27 L Est GFR (Non-Af Amer) 22 L Glucose 74 L Calcium 8.6 Total Bilirubin 0.5 AST 25 ALT 17 Alkaline Phosphatase 76 Total Protein 6.7 Albumin 3.2 L 02/20/18 02/20/18 02/20/18 01:50 01:50 07:45 Creatine Kinase < 20 L < 20 L CK-MB (CK-2) 0.36 Troponin I < 0.012 02/20/18 07:45 Creatine Kinase CK-MB (CK-2) 0.54 Troponin I < 0.012 Impressions: Chest X-Ray 02/20/18 00:00 IMPRESSION: 1. No acute pulmonary process identified. Findings suggest obstructive lung disease. Renal Ultrasound 02/20/18 00:00 IMPRESSION: CHRONIC MEDICAL RENAL DISEASE. NO HYDRONEPHROSIS. Assessment & Plan - Diagnosis (1) Acute kidney injury superimposed on chronic kidney disease Is this a current diagnosis for this admission?: Yes Plan: The patient's kidney function improved with ample IV fluid hydration so this is most likely secondary to acute prerenal azotemia. Patient does not have any significant proteinuria nor hematuria. (2) Chronic kidney disease, stage 3 Is this a current diagnosis for this admission?: Yes Plan: Patient is near baseline kidney function and is nonoliguric. Her kidney ultrasound is supportive of this diagnosis with bilateral small kidneys. This could be secondary to vascular disease and hypertensive nephrosclerosis. Patient would need to be monitored closely. (3) Metabolic acidosis Is this a current diagnosis for this admission?: Yes Plan: This is secondary to AK I and CKD. I will start sodium bicarbonate 650 p.o. twice daily and may be discontinued once the bicarbonate normalized. (4) Secondary hyperparathyroidism (of renal origin) Is this a current diagnosis for this admission?: Yes Plan: Start calcitriol 0.25 mcg 3 times a week which she can go home with. Her calcium is now normal. (5) Hypoalbuminemia Is this a current diagnosis for this admission?: Yes Plan: Advice regarding nutrition. (6) Hyperkalemia Is this a current diagnosis for this admission?: Yes Plan: Currently resolved. Advised the patient regarding low potassium diet. (7) Anemia of chronic disease Is this a current diagnosis for this admission?: Yes Plan: She has good iron stores. She does not need Procrit at this time. (8) Essential hypertension Is this a current diagnosis for this admission?: Yes Plan: Well-controlled. (9) Chronic lymphocytic leukemia Is this a current diagnosis for this admission?: Yes - Notes Notes: This time the patient seems to be clinically improved. From nephrology standpoint I think she can be discharged home in the next 24-48 hours. I will be happy to see and follow her in my office in the next 2-3 weeks. I informed the patient of my contact information's. Thank you very much for this consultation. - Time Time Spent: Greater than 70 Minutes
[2018-02-22] MEDS: SODIUM BICARBONATE 650 MG TABLET PO SCH (22:26)
[2018-02-23 05:17] LABS: ABSOLUTE BASOPHILS # (AUTO) 0.1 10^3/uL (0.0-0.2); ABSOLUTE EOSINOPHILS # (AUTO) 0.3 10^3/uL (0.0-0.6); ABSOLUTE MONOCYTES (AUTO) 0.5 10^3/uL (0.1-1.4); ABSOLUTE NEUT (AUTO) 2.2 10^3/uL (1.7-8.2); EOSINOPHILS % (AUTO) 4.4 % (0-6); HEMATOCRIT 29.8 % (36.0-47.0); LYMPHOCYTES % (AUTO) 49.6 % (13-45); MEAN CORPUSCULAR HEMOGLOBIN 32.7 pg (27.0-33.4); MEAN CORPUSCULAR HGB CONC 33.6 g/dL (32.0-36.0); MEAN CORPUSCULAR VOLUME 97 fl (80-97); MONOCYTES % (AUTO) 8.4 % (3-13); PLATELET COUNT 146 10^3/uL (150-450); RED BLOOD COUNT 3.06 10^6/uL (3.72-5.28); RED CELL DISTRIBUTION WIDTH 15.4 % (11.5-14.0); SEGMENTED NEUTROPHILS % (AUTO) 36.6 % (42-78); TOTAL CELLS COUNTED % (AUTO) 100 %
[2018-02-23 05:35] LABS: BLOOD UREA NITROGEN 35 mg/dL (7-20); CALCIUM 8.4 mg/dL (8.4-10.2); CARBON DIOXIDE 20 mmol/L (22-30); GLUCOSE 91 mg/dL (75-110); POTASSIUM 4.2 mmol/L (3.6-5.0); SODIUM 146.4 mmol/L (137-145)
[2018-02-23 05:36] LABS: ANION GAP 6 (5-19); CHLORIDE 120 mmol/L (98-107)
[2018-02-23] MEDS: NORMAL SALINE 1000 ML 1,000 ML IV PRN (05:45)
[2018-02-23] MEDS: HEPARIN SOD (PORCINE) 5,000 UNIT/ML 1 ML SYRINGE SUBCUT SCH (05:45)
[2018-02-23] MEDS: SODIUM BICARBONATE 650 MG TABLET PO SCH (09:12)
[2018-02-23] MEDS ORDERED: CALCITRIOL 0.25 MCG CAPSULE PO SCH (10:00)
[2018-02-23 11:36] VITALS: BP 152/82
--- NOTE | 2018-02-23 12:19 | PDOC DISCHARGE SUMMARY ---
General - Admit/Disc Date/PCP Admission Date/Primary Care Provider: 02/20/18 01:25 ERUM HENAO MD Discharge Date: 02/23/18 - Discharge Diagnosis (1) Acute kidney injury Is this a current diagnosis for this admission?: Yes (2) Metabolic acidosis with respiratory acidosis Is this a current diagnosis for this admission?: Yes (3) Hyperkalemia Is this a current diagnosis for this admission?: Yes (4) Chronic lymphocytic leukemia Is this a current diagnosis for this admission?: Yes (5) Chronic obstructive pulmonary disease Is this a current diagnosis for this admission?: Yes (6) Chronic kidney disease, stage 3 Is this a current diagnosis for this admission?: Yes (7) Secondary hyperparathyroidism Is this a current diagnosis for this admission?: Yes (8) Essential (primary) hypertension Is this a current diagnosis for this admission?: Yes - Additional Information Resuscitation Status: Full Code Prescriptions: Calcitriol [Rocaltrol 0.25 mcg Capsule] 0.25 mcg PO DAILY #90 capsule Sodium Bicarbonate [Sodium Bicarbonate 650 mg Tablet] 650 mg PO Q12 #60 tablet Home Medications: Montelukast Sodium [Singulair 10 mg Tablet] 10 mg PO QHS 08/04/17 Difluprednate [Durezol] 1 drop OS BID 02/20/18 Gatifloxacin [Zymaxid] 1 drop OS 02/20/18 Nepafenac [Ilevro] 1 drop OS DAILY 02/20/18 Calcitriol [Rocaltrol 0.25 mcg Capsule] 0.25 mcg PO DAILY #90 capsule 02/23/18 Metoprolol Succinate [Toprol Xl] 50 mg PO DAILY 02/23/18 Sodium Bicarbonate [Sodium Bicarbonate 650 mg Tablet] 650 mg PO Q12 #60 tablet 02/23/18 History of Present Illness History of Present Illness: JANET ABBOTT is a 72 year old female she has a history of chronic kidney disease stage III with base creatinine 1.46., History of chronic lymphocytic leukemia of B-cell type not achieved remission, she was in the office last week when she came for follow-up evaluation, she complained of fatigue, comprehensive metabolic panel was done, it demonstrated serum creatinine of 3.4. She was called from home to go to emergency room for evaluation because she probably sustained acute kidney injury. In the emergency room she was evaluated, blood work was done the BUN was 66, creatinine 3.28, ABG was done on room air, pH is 7.19, PO2 91.9, bicarbonate 12, PCO2 32.4 the expected PCO2 for the degree of acidosis is 24-28 both the measured PCO2 is 32.4 consistent with combined respiratory and metabolic acidosis. So she has acute kidney injury with hyperkalemia and metabolic acidosis. 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 Hospital Course Hospital Course: Patient was admitted for the management of acute kidney injury, she has underlining chronic kidney disease state stage 3 due to hypertensive nephrosclerosis. There was associated hyperkalemia and metabolic acidosis, she was treated with intravenous bicarbonate infusion, the acute kidney injury is felt to be due to prerenal azotemia. The urinalysis was bland, there was no proteinuria no hematuria no casts in the urine. Acute ultrasound was done that showed bilateral small kidneys, there was associated secondary hyperparathyroidism, she was started on calcitriol on this admission. She was seen by nephrology Dr. Sanchez Physical Exam Vital Signs: Temp Pulse Resp BP Pulse Ox 98.5 F 44 L 16 152/82 H 97 02/23/18 11:00 02/23/18 11:00 02/23/18 11:00 02/23/18 11:10 02/23/18 11:00 Intake & Output 02/22/18 02/23/18 02/24/18 06:59 06:59 06:59 Intake Total 2572 4015 300 Output Total 2175 2725 700 Balance 397 1290 -400 Weight 55.4 kg 56.2 kg General appearance: PRESENT: no acute distress, well-developed, well-nourished Head exam: PRESENT: atraumatic, normocephalic Eye exam: PRESENT: conjunctiva pink, EOMI, PERRLA Ear exam: PRESENT: normal external ear exam Mouth exam: PRESENT: moist, tongue midline Neck exam: PRESENT: full ROM. ABSENT: carotid bruit, JVD, lymphadenopathy, thyromegaly Respiratory exam: PRESENT: clear to auscultation sendy Cardiovascular exam: PRESENT: RRR, +S1, +S2 Pulses: PRESENT: normal dorsalis pedis pul, +2 pedal pulses bilateral Vascular exam: PRESENT: normal capillary refill GI/Abdominal exam: PRESENT: normal bowel sounds, soft Rectal exam: PRESENT: deferred Neurological exam: PRESENT: alert, awake, oriented to person, oriented to place , oriented to time, oriented to situation, CN II-XII grossly intact Psychiatric exam: PRESENT: appropriate affect, normal mood Skin exam: PRESENT: dry, intact, warm Results Laboratory Results: 02/23/18 04:50 02/23/18 04:50 02/22/18 02/23/18 02/23/18 17:34 04:50 04:50 WBC 6.0 RBC 3.06 L Hgb 10.0 L Hct 29.8 L MCV 97 MCH 32.7 MCHC 33.6 RDW 15.4 H Plt Count 146 L Seg Neutrophils % 36.6 L Lymphocytes % 49.6 H Monocytes % 8.4 Eosinophils % 4.4 Basophils % 1.0 Absolute Neutrophils 2.2 Absolute Lymphocytes 3.0 Absolute Monocytes 0.5 Absolute Eosinophils 0.3 Absolute Basophils 0.1 Sodium 144.7 146.4 H Potassium 4.7 4.2 Chloride 117 H 120 H Carbon Dioxide 17 L 20 L Anion Gap 11 6 BUN 41 H 35 H Creatinine 2.17 H 2.16 H Est GFR ( Amer) 27 L 27 L Est GFR (Non-Af Amer) 22 L 23 L Glucose 74 L 91 Calcium 8.6 8.4 Total Bilirubin 0.5 AST 25 ALT 17 Alkaline Phosphatase 76 Total Protein 6.7 Albumin 3.2 L 02/20/18 02/20/18 02/20/18 01:50 01:50 07:45 Creatine Kinase < 20 L < 20 L CK-MB (CK-2) 0.36 Troponin I < 0.012 02/20/18 07:45 Creatine Kinase CK-MB (CK-2) 0.54 Troponin I < 0.012 Impressions: Chest X-Ray 02/20/18 00:00 IMPRESSION: 1. No acute pulmonary process identified. Findings suggest obstructive lung disease. Renal Ultrasound 02/20/18 00:00 IMPRESSION: CHRONIC MEDICAL RENAL DISEASE. NO HYDRONEPHROSIS. Qualifiers - * PATIENT BEING DISCHARGED WITH ANY OF THE FOLLOWING DIAGNOSIS: No
== END 2018-02-23 14:00 | disposition home or self-care (01) | DRG 683 ==
LOC: ER 13:28 → EH 02-20 01:25 → 3N 02-20 03:45
PROVIDERS: ADMIT Internal Medicine; ATTEND Internal Medicine
DX: N17.9 Acute kidney failure, unspecified (principal); C91.10 Chronic lymphocytic leukemia of B-cell type not having achieved remission; E87.4 Mixed disorder of acid-base balance; E87.5 Hyperkalemia; I12.9 Hypertensive chronic kidney disease with stage 1 through stage 4 chronic kidney disease, or unspecified chronic kidney disease; N18.3 Chronic kidney disease, stage 3 (moderate); J44.9 Chronic obstructive pulmonary disease, unspecified; E86.0 Dehydration; N25.81 Secondary hyperparathyroidism of renal origin
CPT/HCPCS: 36415; 36600; 71046; 76775; 80048; 80053; 80061; 80307; 81001; 82140; 82150; 82306; 82397; 82550; 82553; 82607; 82728; 82746; 82803; 82962; 83036; 83540; 83550; 83690; 83735; 83880; 83970; 84100; 84439; 84443; 84484; 85025; 85045; 85610; 85730; 87086; 93005; 93010; 94640; 96361; 96365; 96375; 99285; J0610; J1644; J1815; J3490; J7030; J7060

== ENCOUNTER 2018-03-09 21:31 | Emergency (ER) | payer MEDICARE, MEDICAID ==
--- NOTE | 2018-03-10 00:06 | ER Document Report ---
ED Medical Screen (RME) - General Chief Complaint: Shortness Of Breath Stated Complaint: SHORTNESS OF BREATH Time Seen by Provider: 03/10/18 00:01 Notes: 72-year-old female with a history of with a mass in the right neck area that comes to the emergency department for chief complaint of shortness of breath especially when lying down. States she feels like she is wheezing at home. Denies fever, she does report cough, has a history of COPD, has home oxygen as needed. Not on chemotherapy or radiation at this time. Denies chest pain, CHF , lower extremity swelling. She is hoarse, denies new hoarseness. TRAVEL OUTSIDE OF THE [place] IN LAST 30 DAYS: No - Related Data Allergies/Adverse Reactions: No Known Allergies Allergy (Verified 02/19/18 13:30) Past Medical History - Past Medical History Cardiac Medical History: Reports: Hx Hypertension Denies: Hx Heart Attack Pulmonary Medical History: Reports: Hx Bronchitis, Hx COPD, Hx Pneumonia Denies: Hx Asthma, Hx Tuberculosis Neurological Medical History: Denies: Hx Cerebrovascular Accident, Hx Seizures Renal/ Medical History: Denies: Hx Peritoneal Dialysis Malignancy Medical History: Reports: Hx Leukemia - chronic lymphocytic leukemia Musculoskeltal Medical History: Reports Hx Arthritis - osteoarthritis Psychiatric Medical History: Denies: Hx Depression Infectious Medical History: Reports: Hx MRSA Past Surgical History: Reports: Hx Abdominal Surgery - spleenectomy. Denies: Hx Bowel Surgery - Immunizations Hx Diphtheria, Pertussis, Tetanus Vaccination: Yes History of Influenza Vaccine for 03/2017 - 08/2017 Season: Yes Influenza Administration Date for 03/2017 - 08/2017 Season: 03/18/17 Physical Exam - Vital signs Vitals: Temp Pulse Resp BP Pulse Ox 98.2 F 69 22 H 174/75 H 89 L 03/09/18 21:54 03/09/18 21:54 03/09/18 21:54 03/09/18 21:54 03/09/18 21:54 - Respiratory Respiratory status: Tachypnea - Mild tachypnea. No: Labored Breath sounds: Decreased air movement Course - Re-evaluation Re-evalutation: Patient with oxygen saturation of 89-90 in triage with mild tachypnea. No significant distress. Decreased breath sounds without expiratory wheezes, no noted airway compromise. - Vital Signs Vital signs: Temp Pulse Resp BP Pulse Ox 98.2 F 69 22 H 174/75 H 89 L 03/09/18 21:54 03/09/18 21:54 03/09/18 21:54 03/09/18 21:54 03/09/18 21:54 Doctor's Discharge - Discharge Referrals: ERUM HENAO MD [Primary Care Provider] - Follow up as needed
[2018-03-10] MEDS ORDERED: IPRATROPIUM/ALBUTEROL 0.5-2.5 MG/3 ML AMPUL NEB ONE ×2 (00:20)
[2018-03-10 00:33] LABS: HEMATOCRIT 34.2 % (36.0-47.0); HEMOGLOBIN 11.5 g/dL (12.0-15.5); MEAN CORPUSCULAR HEMOGLOBIN 33.1 pg (27.0-33.4); MEAN CORPUSCULAR HGB CONC 33.5 g/dL (32.0-36.0); MEAN CORPUSCULAR VOLUME 99 fl (80-97); PLATELET COUNT 265 10^3/uL (150-450); RED BLOOD COUNT 3.46 10^6/uL (3.72-5.28); RED CELL DISTRIBUTION WIDTH 15.5 % (11.5-14.0); WHITE BLOOD COUNT 9.7 10^3/uL (4.0-10.5)
--- NOTE | 2018-03-10 00:43 | ER Document Report ---
ED General - General Chief Complaint: Shortness Of Breath Stated Complaint: SHORTNESS OF BREATH Time Seen by Provider: 03/10/18 00:01 Mode of Arrival: Medic Information source: Patient Notes: 72-year-old female with hypertension, COPD, sarcoidosis, recent diagnosis of leukemia presents with complaint of shortness of breath. Patient states shortness of breath started 1 week prior to arrival with worsening the last 2 days. She reports an associated productive cough. She denies any fever, chills , chest pain. She has used her home meds without relief. She denies any tobacco use. TRAVEL OUTSIDE OF THE [place] IN LAST 30 DAYS: No - HPI Onset: Last week Onset/Duration: Gradual, Persistent, Worse Quality of pain: No pain Associated symptoms: Productive cough, Shortness of breath Exacerbated by: Walking, Coughing Relieved by: Denies Similar symptoms previously: Yes Recently seen / treated by doctor: Yes - Related Data Allergies/Adverse Reactions: No Known Allergies Allergy (Verified 02/19/18 13:30) Past Medical History - General Information source: Patient - Social History Smoking Status: Former Smoker Chew tobacco use (# tins/day): No Frequency of alcohol use: None Drug Abuse: None Lives with: Family Family History: None, Hypertension Patient has suicidal ideation: No Patient has homicidal ideation: No - Past Medical History Cardiac Medical History: Reports: Hx Hypertension Denies: Hx Heart Attack Pulmonary Medical History: Reports: Hx Bronchitis, Hx COPD, Hx Pneumonia Denies: Hx Asthma, Hx Tuberculosis Neurological Medical History: Denies: Hx Cerebrovascular Accident, Hx Seizures Renal/ Medical History: Denies: Hx Peritoneal Dialysis Malignancy Medical History: Reports: Hx Leukemia - chronic lymphocytic leukemia Musculoskeletal Medical History: Reports Hx Arthritis - osteoarthritis Psychiatric Medical History: Denies: Hx Depression Infectious Medical History: Reports: Hx MRSA Past Surgical History: Reports: Hx Abdominal Surgery - spleenectomy. Denies: Hx Bowel Surgery - Immunizations Hx Diphtheria, Pertussis, Tetanus Vaccination: Yes Hx Pneumococcal Vaccination: 08/18/11 Review of Systems - Review of Systems Notes: REVIEW OF SYSTEMS: CONSTITUTIONAL : Denies fever, chills, or sweats. Denies recent illness. Denies weight loss, recent hospitalizations. EENT: Denies visual changes, eye pain. Denies sore throat, oral lesions, difficulty swallowing. CARDIOVASCULAR: Denies chest pain. Denies palpitations. Denies lower extremity edema. RESPIRATORY: + Shortness of breath, productive cough GASTROINTESTINAL: Denies abdominal pain or distention. Denies nausea, vomiting , or diarrhea. Denies blood in vomitus, stools, or per rectum. Denies black, tarry stools. Denies constipation. GENITOURINARY: Denies difficulty urinating, painful urination, frequency, blood in urine, or vaginal discharge. MUSCULOSKELETAL: Denies back or neck pain or stiffness. Denies joint pain or swelling. SKIN: Denies rash, lesions or sores. HEMATOLOGIC : Denies easy bruising or bleeding. LYMPHATIC: Denies swollen glands. NEUROLOGICAL: Denies confusion or altered mental status. Denies loss of consciousness. Denies dizziness or lightheadedness. Denies headache. Denies weakness or paralysis. Denies problems difficulty with ambulation, slurred speech. Denies sensory loss, numbness, or tingling. Denies seizures. PSYCHIATRIC: Denies anxiety or stress. Denies depression, suicidal ideation, or homicidal ideation. Denies visual or auditory hallucinations. Physical Exam - Vital signs Vitals: Temp Pulse Resp BP Pulse Ox 98.2 F 69 22 H 174/75 H 89 L 03/09/18 21:54 03/09/18 21:54 03/09/18 21:54 03/09/18 21:54 03/09/18 21:54 Interpretation: Hypertensive, Tachypneic. No: Hypoxic - Notes Notes: PHYSICAL EXAMINATION: GENERAL: Well-appearing, well-nourished and in no acute distress. HEAD: Atraumatic, normocephalic. EYES: Pupils equal round and reactive to light, extraocular movements intact, conjunctiva are normal. ENT: Nares patent, oropharynx clear without exudates. Moist mucous membranes. NECK: Normal range of motion, supple without lymphadenopathy LUNGS: Diminished breath sounds in all lung mcguire. No wheezes rales or rhonchi. Patient able to speak in full sentences. She has no accessory muscle use. HEART: Regular rate and rhythm without murmurs ABDOMEN: Soft, nontender, nondistended abdomen. No guarding, no rebound. No masses appreciated. Female : deferred Musculoskeletal: Normal range of motion, no pitting or edema. No cyanosis. NEUROLOGICAL: Cranial nerves grossly intact. Normal speech, normal gait. Normal sensory, motor exams PSYCH: Normal mood, normal affect. SKIN: Warm, Dry, normal turgor, no rashes or lesions noted. Course - Re-evaluation Re-evalutation: 72-year-old female with hypertension, COPD, sarcoidosis, recent diagnosis of leukemia presents with complaint of shortness of breath. Patient states shortness of breath started 1 week prior to arrival with worsening the last 2 days. She reports an associated productive cough. She denies any fever, chills , chest pain. She has used her home meds without relief. She denies any tobacco use. 03/10/18 03:20 Patient received breathing treatments, Solu-Medrol and on reevaluation reports resolution of symptoms. 03/10/18 03:21 D-dimer ordered on this patient accidentally. With her age and known history of malignancy as well as complete resolution of her symptoms with breathing treatments I feel PE is less likely. 03/10/18 04:08 Patient ambulated on pulse ox and maintain a O2 saturation of 94%. She reports resolution of her shortness of breath. Because of the patient's increase in sputum production I will place her on an antibiotic. 03/12/18 13:16 - Vital Signs Vital signs: Temp Pulse Resp BP Pulse Ox 98.2 F 69 19 142/91 H 93 03/10/18 05:00 03/09/18 21:54 03/10/18 05:07 03/10/18 05:07 03/10/18 05:07 - Laboratory Result Diagrams: 03/10/18 00:09 03/10/18 00:09 Laboratory results interpreted by me: 03/10/18 03/10/18 03/10/18 00:09 00:09 00:09 RBC 3.46 L Hgb 11.5 L Hct 34.2 L MCV 99 H RDW 15.5 H Seg Neuts % (Manual) 29 L Band Neutrophils % 1 L Lymphocytes % (Manual) 57 H Abs Lymphs (Manual) 5.5 H D-Dimer 0.96 H BUN 41 H Creatinine 2.44 H Est GFR ( Amer) 24 L Est GFR (Non-Af Amer) 20 L NT-Pro-B Natriuret Pep 03/10/18 00:09 RBC Hgb Hct MCV RDW Seg Neuts % (Manual) Band Neutrophils % Lymphocytes % (Manual) Abs Lymphs (Manual) D-Dimer BUN Creatinine Est GFR ( Amer) Est GFR (Non-Af Amer) NT-Pro-B Natriuret Pep 938 H - Diagnostic Test Radiology reviewed: Image reviewed, Reports reviewed - EKG Interpretation by Me EKG shows normal: Sinus rhythm Rate: Normal Rhythm: NSR When compared to previous EKG there are: No significant change Discharge - Discharge Clinical Impression: Chronic lymphocytic leukemia, Renal insufficiency, Chronic kidney disease (CKD) , stage III (moderate) Chronic obstructive pulmonary disease Qualifiers: COPD type: unspecified COPD Qualified Code(s): J44.9 - Chronic obstructive pulmonary disease, unspecified Condition: Good Disposition: HOME, SELF-CARE Instructions: Chronic Obstructive Lung Disease ([facility]) Prescriptions: Doxycycline Hyclate 100 mg PO BID #14 capsule Prednisone [Deltasone 20 mg Tablet] 3 tab PO DAILY 5 Days #15 tablet Forms: Elevated Blood Pressure Referrals: ERUM HENAO MD [Primary Care Provider] - Follow up as needed
[2018-03-10 00:52] LABS: ANION GAP 7 (5-19); BLOOD UREA NITROGEN 41 mg/dL (7-20); CALCIUM 9.4 mg/dL (8.4-10.2); CARBON DIOXIDE 30 mmol/L (22-30); CHLORIDE 104 mmol/L (98-107); GLUCOSE 90 mg/dL (75-110); POTASSIUM 4.6 mmol/L (3.6-5.0); SODIUM 141.1 mmol/L (137-145)
[2018-03-10 00:54] LABS: VENOUS BLOOD BASE EXCESS 2.6 mmol/L; VENOUS BLOOD HCO3 29.2 mmol/L (20-32); VENOUS BLOOD PCO2 55.2 mmHg (35-63); VENOUS BLOOD PH 7.34 (7.30-7.42)
[2018-03-10 00:59] LABS: ABSOLUTE LYMPHOCYTES# (MANUAL) 5.5 10^3/uL (0.5-4.7); ABSOLUTE MONOCYTES # (MANUAL) 0.9 10^3/uL (0.1-1.4); ABSOLUTE NEUTROPHILS# (MANUAL) 2.9 10^3/uL (1.7-8.2); ANISOCYTOSIS 1+; BAND NEUTROPHILS % (MANUAL) 1 % (3-5); BASOPHILS % (MANUAL) 0 % (0-2); EOSINOPHILS % (MANUAL) 4 % (0-6); HOWELL-JOLLY BODIES PRESENT; LYMPHOCYTES % (MANUAL) 57 % (13-45); MONOCYTES % (MANUAL) 9 % (3-13); PLATELET COMMENT ADEQUATE; POIKILOCYTOSIS 1+; POLYCHROMASIA SLIGHT; SCHISTOCYTES 1+; SEGMENTED NEUTROPHILS % (MAN) 29 % (42-78); TOTAL CELLS COUNTED 100
[2018-03-10 01:00] LABS: PLATELET LARGE PRESENT
[2018-03-10] MEDS ORDERED: METHYLPREDNISOLONE INJ 125 MG/2 ML SDV IV ONE (01:39)
--- NOTE | 2018-03-10 02:12 | RADIOLOGY REPORT (SQ) ---
EXAM DESCRIPTION: X-ray single view chest CLINICAL HISTORY: 72 years Female, shortness of breath, hypoxia COMPARISON: Prior chest x-ray performed on 02/20/2018 and 08/04/2017. TECHNIQUE: Single portable view of the chest performed on 03/10/2018 at 1:06 AM FINDINGS: The lungs are well-expanded. There is chronic scarring and/or atelectasis in the lung bases. The remainder of the lungs are clear. There is no evidence of a pneumothorax. The cardiac silhouette is normal in size and configuration. The mediastinal contours are normal. No acute osseous abnormality is identified. No focal soft tissue abnormalities are seen. There are multiple surgical clips in the left upper quadrant. A right subclavian central venous catheter is present stable in position. The tip overlies the region of the superior vena cava. IMPRESSION: 1. No significant change when compared to the prior studies. There is chronic scarring and/or atelectasis in the lung bases. 2. Stable right subclavian [id number] catheter.
[2018-03-10] MEDS ORDERED: DOXYCYCLINE HYCLATE 100 MG TABLET PO ONE (04:11)
[2018-03-10 05:48] VITALS: BP 142/91
--- NOTE | 2018-03-10 14:30 | EKG REPORT ---
SEVERITY:- NORMAL ECG - SINUS RHYTHM : Confirmed by: Angie Hannon MD 10-Mar-2018 14:30:14
== END 2018-03-10 05:15 | disposition home or self-care (01) ==
LOC: ER 21:31
DX: J44.9 Chronic obstructive pulmonary disease, unspecified (principal); C91.90 Lymphoid leukemia, unspecified not having achieved remission; I12.9 Hypertensive chronic kidney disease with stage 1 through stage 4 chronic kidney disease, or unspecified chronic kidney disease; N18.3 Chronic kidney disease, stage 3 (moderate); R06.02 Shortness of breath; R05 Cough; Z87.891 Personal history of nicotine dependence; Z87.01 Personal history of pneumonia (recurrent)
CPT/HCPCS: 93005; 94640; 99285; 96374; 36415; 85025; 80048; 84484; 85379; 82803; 83880; 71045; 93010; A9270 ×2; J2930; J7620

== ENCOUNTER 2018-03-30 11:40 | Inpatient (IN) | payer MEDICARE, MEDICAID ==
[2018-03-30] MEDS ORDERED: ASPIRIN 325 MG TABLET PO ONE (12:00)
--- NOTE | 2018-03-30 12:02 | ER Document Report ---
ED Medical Screen (RME) - General Chief Complaint: Chest Pain Stated Complaint: CHEST PAIN Time Seen by Provider: 03/30/18 12:00 Mode of Arrival: Wheelchair Information source: Patient TRAVEL OUTSIDE OF THE [place] IN LAST 30 DAYS: No - HPI Patient complains to provider of: CP Onset: Other - pt with c/o CP and cough for the past 3 days. Has not taken ASA today - Related Data Allergies/Adverse Reactions: No Known Allergies Allergy (Verified 03/30/18 11:41) Past Medical History - Past Medical History Cardiac Medical History: Reports: Hx Hypertension Denies: Hx Heart Attack Pulmonary Medical History: Reports: Hx Bronchitis, Hx COPD, Hx Pneumonia Denies: Hx Asthma, Hx Tuberculosis Neurological Medical History: Denies: Hx Cerebrovascular Accident, Hx Seizures Renal/ Medical History: Denies: Hx Peritoneal Dialysis Malignancy Medical History: Reports: Hx Leukemia - chronic lymphocytic leukemia Musculoskeltal Medical History: Reports Hx Arthritis - osteoarthritis Psychiatric Medical History: Denies: Hx Depression Infectious Medical History: Reports: Hx MRSA Past Surgical History: Reports: Hx Abdominal Surgery - spleenectomy. Denies: Hx Bowel Surgery - Immunizations Hx Diphtheria, Pertussis, Tetanus Vaccination: Yes History of Influenza Vaccine for 03/2017 - 08/2017 Season: Yes Influenza Administration Date for 03/2017 - 08/2017 Season: 03/18/17 Physical Exam - Vital signs Vitals: Temp Pulse Resp BP Pulse Ox 98.7 F 94 20 133/73 H 95 03/30/18 11:54 03/30/18 11:54 03/30/18 11:54 03/30/18 11:54 03/30/18 11:54 Course - Vital Signs Vital signs: Temp Pulse Resp BP Pulse Ox 98.7 F 94 20 133/73 H 95 03/30/18 11:54 03/30/18 11:54 03/30/18 11:54 03/30/18 11:54 03/30/18 11:54 Doctor's Discharge - Discharge Referrals: ERUM HENAO MD [Primary Care Provider] - Follow up as needed
--- NOTE | 2018-03-30 12:22 | ER Document Report ---
ED Cardiac - General Chief Complaint: Chest Pain Stated Complaint: CHEST PAIN Time Seen by Provider: 03/30/18 12:00 Mode of Arrival: Wheelchair Information source: Patient Notes: 72-year-old female with past medical history including high blood pressure and lymphoma currently on a p.o. chemotherapeutic pill by Dr. Barahona who presents today stating the onset Sunday of some runny nose, congestion, coughing, reddish sputum with the cough, without fevers, calf pain, leg swelling, recent trips or travel. She does state some shortness of breath that is worse when she lays flat. She denies any calf pain or leg swelling. Patient on review of systems also states that on Sunday she had a transient episode lasting 10 minutes of feeling "lightheaded and dizzy". She states it resolved spontaneously. She has had that before. She denies any tinnitus or neck pain. She denies any blurry vision. TRAVEL OUTSIDE OF THE [place] IN LAST 30 DAYS: No - HPI Patient complains to provider of: Chest pain - See above Was the onset of pain: Gradual Is the pain a: New problem Chest pain location: Other - Left sided Quality of pain: Other - See above Severity now: None Severity at worst: Mild Pain level currently: Denies Associated symptoms: Other - See above Exacerbated by: Other - See above Relieved by: Nothing Similar symptoms previously: No Recently seen / treated by doctor: No - Related Data Allergies/Adverse Reactions: No Known Allergies Allergy (Verified 03/30/18 12:45) Past Medical History - General Information source: Patient - Social History Smoking Status: Never Smoker Chew tobacco use (# tins/day): No Frequency of alcohol use: None Drug Abuse: None Family History: None, Hypertension Patient has suicidal ideation: No Patient has homicidal ideation: No - Past Medical History Cardiac Medical History: Reports: Hx Hypertension Denies: Hx Heart Attack Pulmonary Medical History: Reports: Hx Bronchitis, Hx COPD, Hx Pneumonia Denies: Hx Asthma, Hx Tuberculosis Neurological Medical History: Denies: Hx Cerebrovascular Accident, Hx Seizures Renal/ Medical History: Denies: Hx Peritoneal Dialysis Malignancy Medical History: Reports: Hx Leukemia - chronic lymphocytic leukemia Musculoskeletal Medical History: Reports Hx Arthritis - osteoarthritis Psychiatric Medical History: Denies: Hx Depression Infectious Medical History: Reports: Hx MRSA Past Surgical History: Reports: Hx Abdominal Surgery - spleenectomy. Denies: Hx Bowel Surgery - Immunizations Hx Diphtheria, Pertussis, Tetanus Vaccination: Yes Hx Pneumococcal Vaccination: 08/18/11 Review of Systems - Review of Systems Constitutional: denies: Fever EENT: denies: Eye discharge, Nose discharge Cardiovascular: Chest pain, Dizziness. denies: Palpitations, Syncope Respiratory: Cough, Short of breath Gastrointestinal: denies: Vomiting Genitourinary: denies: Dysuria Musculoskeletal: denies: Leg swelling Skin: Other - no hives. denies: Rash Neurological/Psychological: Other - no slurred speech -: Yes All other systems reviewed and negative Physical Exam - Vital signs Vitals: Temp Pulse Resp BP Pulse Ox 98.7 F 94 20 133/73 H 95 03/30/18 11:54 03/30/18 11:54 03/30/18 11:54 03/30/18 11:54 03/30/18 11:54 Notes: Reviewed vital signs and nursing note as charted by RN. CONSTITUTIONAL: Alert and oriented and responds appropriately to questions. Well -appearing; well-nourished HEAD: Normocephalic; atraumatic EYES: PERRL; no nystagmus noted; full extraocular range of motion ENT: Normal nose; no rhinorrhea; moist mucous membranes; pharynx without lesions noted NECK: Supple without meningismus; non-tender; no carotid bruits; no cervical lymphadenopathy, no masses CARD: Regular rate and rhythm; no murmurs, no clicks, no rubs, no gallops; symmetric distal pulses RESP: Normal chest excursion without splinting or tachypnea; breath sounds clear and equal bilaterally; no wheezes, no rhonchi, no rales ABD/GI: Normal bowel sounds; non-distended; soft, non-tender BACK: The back appears normal and is non-tender to palpation EXT: Normal ROM in all joints; non-tender to palpation; no edema SKIN: No aute lesions noted NEURO: CN II through XII are intact. Patient has 5 out of 5 bilateral upper and lower extremity strength with sensation intact to light touch PSYCH: The patient's mood and manner are appropriate. Grooming and personal hygiene are appropriate. Course - Re-evaluation Re-evalutation: Given the above history and physical examination we will place the patient on the monitor, obtain a cardiac panel, EKG, electrolytes, as well as a CT scan of the head and chest. I do not believe that the patient has a dissection. Given the shortness of breath, cough, and cancer history, I will proceed directly to CTA. Given the runny nose and congestion this possibly could be an upper respiratory tract infection. Given the orthopnea, I will order a BNP. EKG shows heart of 96, normal sinus rhythm, normal axis, no ST elevation or depression 03/30/18 14:42 Labs as recorded. Patient denies any pain. No focal neurological deficits. Creatinine is slightly elevated above baseline. I have change the CT scan to a VQ scan. 03/30/18 17:35 VQ scan as recorded. I have called and spoken directly to the radiologist who states he cannot tell exactly fusion deficit is caused from, but he states it is present. Given the lymphoma with the higher than normal pretest probability , I do believe the patient may require admission and anticoagulants. I called and spoke to the primary care physician as well as calling and speaking directly to the oncologist Dr. Calderon. I have explained the recent drop in the white blood cell count and the platelets. Both of them are comfortable with starting heparin. Patient will be followed in the hospitalist. The oncologist states that the patient did have ITP but it was not secondary to heparin. Patient will be started on a heparin bolus and drip and be admitted to the hospital service under Dr. Zayas by Dr. Mcallister. - Vital Signs Vital signs: Temp Pulse Resp BP Pulse Ox 98.7 F 94 19 123/76 99 03/30/18 11:54 03/30/18 11:54 03/30/18 17:00 03/30/18 17:01 03/30/18 17:01 - Laboratory Result Diagrams: 03/30/18 12:42 03/30/18 12:42 Laboratory results interpreted by me: 03/30/18 03/30/18 12:42 12:42 WBC 3.1 L RBC 3.28 L Hgb 10.8 L Hct 31.7 L RDW 14.8 H Plt Count 128 L Lymphocytes % (Manual) 50 H Monocytes % (Manual) 0 L Abs Neuts (Manual) 1.6 L Abs Monocytes (Manual) 0.0 L Sodium 136.1 L BUN 62 H Creatinine 2.98 H Est GFR ( Amer) 19 L Est GFR (Non-Af Amer) 16 L Total Bilirubin 1.6 H Direct Bilirubin 0.5 H Creatine Kinase < 20 L Critical Care Note - Critical Care Note Total time excluding time spent on procedures (mins): 35 Discharge - Discharge Clinical Impression: Shortness of breath, Abnormal perfusion scan of lung Chest pain Qualifiers: Chest pain type: unspecified Qualified Code(s): R07.9 - Chest pain, unspecified Condition: Fair Disposition: ADMITTED INPATIENT Admitting Provider: Kun Unit Admitted: [facility] Referrals: ERUM HENAO MD [Primary Care Provider] - Follow up as needed
[2018-03-30 13:40] LABS: HEMATOCRIT 31.7 % (36.0-47.0); HEMOGLOBIN 10.8 g/dL (12.0-15.5); MEAN CORPUSCULAR HEMOGLOBIN 32.8 pg (27.0-33.4); MEAN CORPUSCULAR VOLUME 97 fl (80-97); PLATELET COUNT 128 10^3/uL (150-450); RED BLOOD COUNT 3.28 10^6/uL (3.72-5.28); RED CELL DISTRIBUTION WIDTH 14.8 % (11.5-14.0); WHITE BLOOD COUNT 3.1 10^3/uL (4.0-10.5)
[2018-03-30 13:46] LABS: NT PRO BNP 181 pg/mL (5-900)
[2018-03-30 13:48] LABS: CREATINE KINASE MB < 0.22 ng/mL (<4.55); TROPONIN I < 0.012 ng/mL
[2018-03-30 14:04] LABS: ABSOLUTE LYMPHOCYTES# (MANUAL) 1.6 10^3/uL (0.5-4.7); ABSOLUTE NEUTROPHILS# (MANUAL) 1.6 10^3/uL (1.7-8.2); BASOPHILS % (MANUAL) 0 % (0-2); EOSINOPHILS % (MANUAL) 0 % (0-6); LYMPHOCYTES % (MANUAL) 50 % (13-45); MONOCYTES % (MANUAL) 0 % (3-13); SEGMENTED NEUTROPHILS % (MAN) 50 % (42-78); TOTAL CELLS COUNTED 100
[2018-03-30 14:05] LABS: ANISOCYTOSIS SLIGHT; PLATELET COMMENT DECREASED; POIKILOCYTOSIS SLIGHT; TARGET CELLS SLIGHT
[2018-03-30 14:23] LABS: ALANINE AMINOTRANSFERASE 23 U/L (9-52); ALBUMIN 3.5 g/dL (3.5-5.0); ALKALINE PHOSPHATASE 70 U/L (38-126); ANION GAP 9 (5-19); ASPARTATE AMINO TRANSFERASE 19 U/L (14-36); BILIRUBIN,DIRECT 0.5 mg/dL (0.0-0.4); BILIRUBIN,TOTAL 1.6 mg/dL (0.2-1.3); BLOOD UREA NITROGEN 62 mg/dL (7-20); CALCIUM 8.8 mg/dL (8.4-10.2); CARBON DIOXIDE 25 mmol/L (22-30); CHLORIDE 102 mmol/L (98-107); GLUCOSE 79 mg/dL (75-110); SODIUM 136.1 mmol/L (137-145); TOTAL PROTEIN 7.1 g/dL (6.3-8.2)
[2018-03-30 14:28] LABS: CREATINE KINASE < 20 U/L (30-135)
[2018-03-30] MEDS ORDERED: NORMAL SALINE 1000 ML 1,000 ML IV ONE (14:42)
--- NOTE | 2018-03-30 15:30 | RADIOLOGY REPORT (SQ) ---
EXAM DESCRIPTION: CT HEAD WITHOUT COMPLETED DATE/TIME: 03/30/2018 3:16 pm REASON FOR STUDY: 19; dizziness; h/o lymphoma COMPARISON: 08/04/2017 TECHNIQUE: Axial images acquired through the brain without intravenous contrast. Images reviewed wi th bone, brain and subdural windows. Images stored on PACS. All CT scanners at this facility use dose modulation, iterative reconstruction, and/or weight based d osing when appropriate to reduce radiation dose to as low as reasonably achievable (ALARA). [facility]: Dose Right [facility]: CareDose [facility]: Dose Right [facility]: Teradose 4D [facility]: Smart [employer] RADIATION DOSE: CT Rad equipment meets quality standard of care and radiation dose reduction techniq ues were employed. CTDIvol: 53.2 mGy. DLP: 1017 mGy-cm. mGy. LIMITATIONS: None. FINDINGS: VENTRICLES: Age-appropriate. CEREBRUM: No masses. No hemorrhage. No midline shift. Areas of low density in the white matter mos t likely due to chronic micro-vascular ischemic change. No evidence for acute infarction. CEREBELLUM: No masses. No hemorrhage. No alteration of density. No evidence for acute infarction. EXTRAAXIAL SPACES: Mild age-related involutional change. No fluid collections. No masses. ORBITS AND GLOBE: No intra- or extraconal masses. Normal contour of globe without masses. CALVARIUM: No fracture. PARANASAL SINUSES: No fluid. Ethmoid and maxillary mucosal thickening. SOFT TISSUES: No mass or hematoma. OTHER: No other significant finding. IMPRESSION: No acute intracranial findings. EVIDENCE OF ACUTE STROKE: NO. TECHNICAL DOCUMENTATION: JOB ID: [id number] [place]-72 Quality ID # [id number]: Final reports with documentation of one or more dose reduction techniques (e.g., Au tomated exposure control, adjustment of the mA and/or kV according to patient size, use of iterative reconstruction technique) 2010 [employer]- All Rights Reserved Reading location - IP/workstation name: [email or web address]
--- NOTE | 2018-03-30 17:09 | RADIOLOGY REPORT (SQ) ---
EXAM DESCRIPTION: NM LUNG VENT/PERF SCAN COMPLETED DATE/TIME: 03/30/2018 4:35 pm REASON FOR STUDY: 19; cp with sob. Elevated Cr COMPARISON: None. RADIONUCLIDE AND DOSE: 5.3 millicuries TC-99m MAA Intravenous 32.5 millicuries TC-99m DTPA Inhaled aerosol TECHNIQUE: Eight views of the lungs acquired post ventilation of DTPA aerosol. Eight matching views of the lungs acquired following injection of MAA. LIMITATIONS: None. FINDINGS: VENTILATION: Heterogeneous centralized distribution of DTPA aerosol during ventilatory pha se. PERFUSION: Perfusion images show heterogeneous activity with multiple bilateral peripheral segmental defects. OTHER: No other significant finding. IMPRESSION: Perfusion images show heterogeneous activity with multiple bilateral peripheral segmenta l defects. TECHNICAL DOCUMENTATION: JOB ID: [id number] [place]-72 2010 [employer]- All Rights Reserved Reading location - IP/workstation name: [email or web address]
[2018-03-30] MEDS ORDERED: HEPARIN SODIUM,PORCINE/D5W 250 ML IV PRN (17:32)
[2018-03-30] MEDS ORDERED: HEPARIN SOD (PORCINE) 1,000 UNIT/ML 10 ML VIAL IV ONE (17:32)
[2018-03-30 17:38] LABS: INTERNATIONAL RATION (INR) 0.96; PROTHROMBIN TIME 13.3 SEC (11.4-15.4)
[2018-03-30 17:39] LABS: PARTIAL THROMBOPLASTIN TIME 46.2 SEC (23.5-35.8)
--- NOTE | 2018-03-30 18:11 | RADIOLOGY REPORT (SQ) ---
EXAM DESCRIPTION: CHEST 2 VIEWS COMPLETED DATE/TIME: 03/30/2018 5:58 pm REASON FOR STUDY: 19; cough and chest pain COMPARISON: 02/20/2018 TECHNIQUE: Frontal and lateral radiographic views of the chest acquired. NUMBER OF VIEWS: Two view. LIMITATIONS: None. FINDINGS: LUNGS AND PLEURA: No pneumothorax. Small patchy airspace opacities are present in the rig ht lung base. Similar chronic interstitial changes. No pleural effusion. MEDIASTINUM AND HILAR STRUCTURES: Stable. HEART AND VASCULAR STRUCTURES: Stable. BONES: No acute findings. HARDWARE: Right chest port. OTHER: No other significant finding. IMPRESSION: Small patchy airspace opacities are present in the right lung base. TECHNICAL DOCUMENTATION: JOB ID: [id number] [place]-72 2010 [employer]- All Rights Reserved Reading location - IP/workstation name: [email or web address]
[2018-03-30] MEDS ORDERED: HEPARIN SODIUM,PORCINE/D5W 25,000 UNIT/250 ML RTUINJ IV ONE (18:14)
[2018-03-30] MEDS ORDERED: AZITHROMYCIN INJ 500 MG VIAL IV ONE (18:18)
[2018-03-30] MEDS ORDERED: CEFTRIAXONE 1 GM/D5W RTU 1 GM/50 ML RTUPB IV ONE (18:18)
[2018-03-30] MEDS: HEPARIN SODIUM,PORCINE/D5W 25,000 UNIT/250 ML RTUINJ IV PRN (18:56)
--- NOTE | 2018-03-30 20:48 | EKG REPORT ---
SEVERITY:- NORMAL ECG - SINUS RHYTHM : Confirmed by: Angie Hannon MD 30-Mar-2018 20:47:51
[2018-03-31] MEDS ORDERED: ACETAMINOPHEN 325 MG TABLET ONE (11:14)
--- NOTE | 2018-03-31 11:59 | PDOC H&P ---
History of Present Illness Admission Date/PCP: 03/30/18 17:51 ERUM HENAO MD Patient complains of: Shortness of breath History of Present Illness: JANET ABBOTT is a 72 year old female patient of Dr. Henao who presented to the ED with complaint of worsening new onset shortness of breath, nasal congestion with running nose, coughing with sputum production and reddish color to the sputum. She denied fever but admitted to feeling cold. She reported associated dizziness and lightheadedness that resolved without any medical intervention. Patient reported that her shortness of breathe is worsen in supine position. She denied any associated headache, nausea, vomiting, abdominal pain, dysuria, hematuria, or flank pain. Her medical morbidities include chronic lymphocytic leukemia (CLL), COPD, Hypertension, paroxysmal atrial fibrillation, chronic kidney disease, non-heparin related ITP s/p Splenectomy, and osteoarthritis. She denied any history of thrombosis or embolic event. Patient reported that she was started on Eliquis prophylaxis for CLL and possibility of thrombotic complication but she did not picker packer the medication from her pharmacy. Her initial ED evaluation was remarkable for abnormal VQ scan suggestive of multiple bilateral peripheral segmental defeats and chest X ray that suggested right lower lobe air space disease. Past Medical History Cardiac Medical History: Reports: Atrial Fibrillation - paroxysmal type, Hypertension Denies: Myocardial Infarction Pulmonary Medical History: Reports: Bronchitis, Chronic Obstructive Pulmonary Disease (COPD), Pneumonia Denies: Asthma, Tuberculosis Neurological Medical History: Denies: Seizures Renal/ Medical History: Reports: Chronic Kidney Disease Malignancy Medical History: Reports: Leukemia - chronic lymphocytic leukemia Musculoskeltal Medical History: Reports: Arthritis - osteoarthritis Psychiatric Medical History: Denies: Depression Hematology: Denies: Anemia Infectious Medical History: Reports: Methicillin-Resistant Staph Aureus Past Surgical History Past Surgical History: Reports: Splenectomy Social History Smoking Status: Never Smoker Frequency of Alcohol Use: None Hx Recreational Drug Use: No Drugs: None Hx Prescription Drug Abuse: No - Advance Directive Resuscitation Status: Full Code Family History Family History: None, Hypertension Parental Family History Reviewed: Yes Children Family History Reviewed: Yes Sibling(s) Family History Reviewed.: Yes Medication/Allergy Home Medications: Montelukast Sodium [Singulair 10 mg Tablet] 10 mg PO QPM 08/04/17 Metoprolol Succinate [Toprol Xl] 50 mg PO DAILY 02/23/18 Sodium Bicarbonate [Sodium Bicarbonate 650 mg Tablet] 650 mg PO Q12 #60 tablet 02/23/18 Ergocalciferol (Vitamin D2) [Drisdol 50,000 Unit (1.25MG) Capsule] 1 cap PO MENDOZA@ 1000 PRN 03/30/18 Apixaban [Eliquis 2.5 mg Tablet] 2.5 mg PO BID 03/31/18 Allergies/Adverse Reactions: No Known Allergies Allergy (Verified 03/30/18 12:45) Review of Systems Constitutional: PRESENT: chills Eyes: ABSENT: visual disturbances Ears: ABSENT: hearing changes Nose, Mouth, and Throat: ABSENT: as per HPI, headache(s), mouth pain, sore throat, vertigo, other Cardiovascular: PRESENT: chest pain, dyspnea on exertion. ABSENT: as per HPI, edema, orthropnea, palpitations, other Respiratory: PRESENT: cough, dyspnea, hemoptysis, sputum Gastrointestinal: ABSENT: abdominal pain, constipation, diarrhea, hematemesis, hematochezia, nausea, vomiting Genitourinary: ABSENT: dysuria, hematuria Musculoskeletal: ABSENT: joint swelling Integumentary: ABSENT: rash, wounds Neurological: PRESENT: dizziness - with lightheadedness that resolved before she seek medical attention Psychiatric: ABSENT: anxiety, depression, homidical ideation, suicidal ideation Endocrine: ABSENT: cold intolerance, heat intolerance, polydipsia, polyuria Hematologic/Lymphatic: ABSENT: easy bleeding, easy bruising, lymphadenopathy Allergic/Immunologic: PRESENT: seasonal rhinorrhea Physical Exam Vital Signs: Temp Pulse Resp BP Pulse Ox 99.2 F 91 19 100/60 94 03/31/18 07:22 03/31/18 07:22 03/31/18 07:22 03/31/18 07:22 03/31/18 07:22 Intake & Output 03/30/18 03/31/18 04/01/18 06:59 06:59 06:59 Intake Total 1439 Output Total 650 Balance 789 Weight 50.2 kg General appearance: PRESENT: no acute distress, well-developed, well-nourished Head exam: PRESENT: atraumatic, normocephalic Eye exam: PRESENT: conjunctiva pink, EOMI, PERRLA. ABSENT: scleral icterus Ear exam: PRESENT: normal external ear exam Mouth exam: PRESENT: moist Neck exam: PRESENT: full ROM. ABSENT: carotid bruit, JVD, lymphadenopathy, thyromegaly Respiratory exam: PRESENT: clear to auscultation sendy, decreased breath sounds - at lung bases Cardiovascular exam: PRESENT: RRR. ABSENT: diastolic murmur, rubs, systolic murmur Pulses: PRESENT: +1 pedal pulses bilateral Vascular exam: PRESENT: normal capillary refill. ABSENT: pallor GI/Abdominal exam: PRESENT: normal bowel sounds, soft. ABSENT: distended, guarding, mass, organolmegaly, rebound, tenderness Rectal exam: PRESENT: deferred Extremities exam: ABSENT: pedal edema Musculoskeletal exam: PRESENT: deformity - related to multiple joints involvement with arthritis Neurological exam: PRESENT: alert, awake, oriented to person, oriented to place , oriented to time, oriented to situation, CN II-XII grossly intact. ABSENT: motor sensory deficit Psychiatric exam: PRESENT: appropriate affect, normal mood. ABSENT: homicidal ideation, suicidal ideation Skin exam: PRESENT: dry, intact, warm. ABSENT: cyanosis, rash Results Laboratory Results: I reviewed her laboratory results on [place] and form significant part of my medical decision making. Impressions: Head CT 03/30/18 12:20 IMPRESSION: No acute intracranial findings. EVIDENCE OF ACUTE STROKE: NO. Lung Scan-VQ NM 03/30/18 14:40 IMPRESSION: Perfusion images show heterogeneous activity with multiple bilateral peripheral segmental defects. Chest X-Ray 03/30/18 17:28 IMPRESSION: Small patchy airspace opacities are present in the right lung base. Assessment & Plan - Diagnosis (1) Abnormal perfusion scan of lung Is this a current diagnosis for this admission?: Yes Plan: See covering admitting attending physician orders. (2) Right lower lobe pulmonary infiltrate Is this a current diagnosis for this admission?: Yes Plan: See covering admitting attending physician orders. (3) Chest pain Qualifiers: Chest pain type: unspecified Qualified Code(s): R07.9 - Chest pain, unspecified Is this a current diagnosis for this admission?: Yes Plan: See covering admitting attending physician orders. (4) Essential hypertension Is this a current diagnosis for this admission?: Yes Plan: See covering admitting attending physician orders. (5) CKD (chronic kidney disease) stage 4, GFR 15-29 ml/min Is this a current diagnosis for this admission?: Yes Plan: See covering admitting attending physician orders. (6) Chronic lymphocytic leukemia Is this a current diagnosis for this admission?: Yes Plan: See covering admitting attending physician orders. - Time Time Spent: 50 to 70 Minutes Medications reviewed and adjusted accordingly: Yes Anticipated discharge: Home with Homehealth Within: Other - Inpatient Certification Based on my medical assessment, after consideration of the patient's comorbidities, presenting symptoms, or acuity I expect that the services needed warrant INPATIENT care.: Yes I certify that my determination is in accordance with my understanding of Medicare's requirements for reasonable and necessary INPATIENT services [42 CFR 412.3e].: Yes Medical Necessity: Need Close Monitoring Due to Risk of Patient Decompensation, Need For IV Fluids, Need For Continuous Telemetry Monitoring, Need for IV Antibiotics, Risk of Complication if Not Cared For in Hospital Post Hospital Care: D/C Chief Of Field 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
[2018-03-31] MEDS ORDERED: CEFTRIAXONE 1 GM/D5W RTU 1 GM/50 ML RTUPB IV SCH (12:00)
[2018-03-31] MEDS: LANSOPRAZOLE 30 MG TAB.RAP.DR PO SCH (12:10)
[2018-03-31] MEDS: AZITHROMYCIN 500 MG in DEXTROSE 5%-WATER 250 ML IV SCH (12:36)
[2018-03-31] MEDS: NORMAL SALINE 1000 ML 1,000 ML IV PRN (12:36)
[2018-03-31] MEDS: CEFTRIAXONE SODIUM 1,000 MG in DEXTROSE 5%-WATER 50 ML IV SCH (13:52)
[2018-03-31] MEDS: ERGOCALCIFEROL (VITAMIN D2) 50000 UNIT (1.25 MG) CAPSULE PO SCH (15:03)
[2018-03-31] MEDS: MONTELUKAST SODIUM 10 MG TABLET PO SCH (17:35)
[2018-03-31] MEDS: SODIUM BICARBONATE 650 MG TABLET PO SCH (21:20)
[2018-03-31] MEDS: HEPARIN SODIUM,PORCINE/D5W 25,000 UNIT/250 ML RTUINJ IV PRN (23:39)
[2018-04-01] MEDS: LANSOPRAZOLE 30 MG TAB.RAP.DR PO SCH (05:08)
[2018-04-01 07:24] LABS: HEMATOCRIT 27.2 % (36.0-47.0); HEMOGLOBIN 9.3 g/dL (12.0-15.5); MEAN CORPUSCULAR HEMOGLOBIN 32.8 pg (27.0-33.4); MEAN CORPUSCULAR HGB CONC 34.1 g/dL (32.0-36.0); MEAN CORPUSCULAR VOLUME 96 fl (80-97); RED BLOOD COUNT 2.82 10^6/uL (3.72-5.28); RED CELL DISTRIBUTION WIDTH 14.3 % (11.5-14.0); WHITE BLOOD COUNT 3.8 10^3/uL (4.0-10.5)
[2018-04-01 07:28] LABS: PLATELET COUNT 96 10^3/uL (150-450)
[2018-04-01 07:34] LABS: ALANINE AMINOTRANSFERASE 11 U/L (9-52); ALBUMIN 2.8 g/dL (3.5-5.0); ALKALINE PHOSPHATASE 54 U/L (38-126); ANION GAP 7 (5-19); ASPARTATE AMINO TRANSFERASE 28 U/L (14-36); BILIRUBIN,DIRECT 0.5 mg/dL (0.0-0.4); BLOOD UREA NITROGEN 45 mg/dL (7-20); CALCIUM 8.2 mg/dL (8.4-10.2); CARBON DIOXIDE 24 mmol/L (22-30); CHLORIDE 108 mmol/L (98-107); GLUCOSE 89 mg/dL (75-110); POTASSIUM 4.5 mmol/L (3.6-5.0); TOTAL PROTEIN 6.1 g/dL (6.3-8.2)
[2018-04-01 08:15] LABS: APPEARANCE,URINE CLEAR; BILIRUBIN,URINE NEGATIVE (NEGATIVE); COLOR,URINE STRAW; GLUCOSE, URINE NEGATIVE (NEGATIVE); KETONES,URINE NEGATIVE (NEGATIVE); LEUKOCYTE ESTERASE,URINE NEGATIVE (NEGATIVE); NITRITE,URINE NEGATIVE (NEGATIVE); PROTEIN,URINE NEGATIVE (NEGATIVE); URINE SPECIFIC GRAVITY 1.006; UROBILINOGEN,URINE NEGATIVE mg/dL (<2.0)
[2018-04-01] MEDS: METOPROLOL SUCCINATE 50 MG TAB.SR.24H PO SCH (09:21)
[2018-04-01] MEDS: ACETAMINOPHEN 325 MG TABLET PO PRN ×3 (09:21→23:05)
[2018-04-01] MEDS: AZITHROMYCIN 500 MG in DEXTROSE 5%-WATER 250 ML IV SCH (09:21)
[2018-04-01] MEDS: SODIUM BICARBONATE 650 MG TABLET PO SCH ×2 (09:21→22:31)
[2018-04-01] MEDS ORDERED: HEPARIN SOD (PORCINE) 1,000 UNIT/ML 10 ML VIAL IV PRN (11:42)
[2018-04-01] MEDS: NORMAL SALINE 1000 ML 1,000 ML IV PRN (13:12)
[2018-04-01] MEDS: CEFTRIAXONE SODIUM 1,000 MG in DEXTROSE 5%-WATER 50 ML IV SCH (13:12)
--- NOTE | 2018-04-01 16:37 | PDOC PROGRESS REPORT ---
Subjective Progress Note for:: 04/01/18 Subjective:: Patient reported less bloody content in her sputum today. There is reported blood in her urine but vulval examination reveled wart lesion with some amount of bleeding. There is reported low grade fever at 101F this afternoon. No chest pain. No nausea or vomiting. No abdominal pain. Reason For Visit: PROBABLE PULMONARY EMBOLISM,RIGHT LOWER LOBE Physical Exam Vital Signs: Temp Pulse Resp BP Pulse Ox 101.0 F H 86 14 128/81 H 100 04/01/18 15:48 04/01/18 15:48 04/01/18 15:48 04/01/18 15:48 04/01/18 15:48 Intake & Output 03/31/18 04/01/18 04/02/18 06:59 06:59 06:59 Intake Total 1439 2193 607 Output Total 650 900 Balance 789 1293 607 Weight 50.2 kg 53.8 kg General appearance: PRESENT: no acute distress Head exam: PRESENT: atraumatic, normocephalic Eye exam: PRESENT: conjunctiva pink, EOMI, PERRLA. ABSENT: scleral icterus Ear exam: PRESENT: normal external ear exam Mouth exam: PRESENT: moist Respiratory exam: PRESENT: clear to auscultation sendy Cardiovascular exam: PRESENT: RRR. ABSENT: diastolic murmur, rubs, systolic murmur Vascular exam: ABSENT: pallor GI/Abdominal exam: PRESENT: normal bowel sounds, soft. ABSENT: distended, guarding, mass, organolmegaly, rebound, tenderness Gentrourinary exam: PRESENT: other - reported vulval wart lesion Extremities exam: ABSENT: pedal edema Musculoskeletal exam: PRESENT: normal inspection Neurological exam: PRESENT: alert, awake, oriented to person, oriented to place , oriented to time, oriented to situation, CN II-XII grossly intact. ABSENT: motor sensory deficit Psychiatric exam: PRESENT: appropriate affect, normal mood. ABSENT: homicidal ideation, suicidal ideation Skin exam: PRESENT: dry, warm Results Laboratory Results: 04/01/18 06:49 04/01/18 06:49 04/01/18 04/01/18 04/01/18 06:49 06:49 07:50 WBC 3.8 L RBC 2.82 L Hgb 9.3 L Hct 27.2 L MCV 96 MCH 32.8 MCHC 34.1 RDW 14.3 H Plt Count 96 L Sodium 139.0 Potassium 4.5 Chloride 108 H Carbon Dioxide 24 Anion Gap 7 BUN 45 H Creatinine 2.31 H Est GFR ( Amer) 25 L Est GFR (Non-Af Amer) 21 L Glucose 89 Calcium 8.2 L Total Bilirubin 1.0 AST 28 ALT 11 Alkaline Phosphatase 54 Total Protein 6.1 L Albumin 2.8 L Urine Color STRAW Urine Appearance CLEAR Urine pH 5.0 Ur Specific [place] 1.006 Urine Protein NEGATIVE Urine Glucose (UA) NEGATIVE Urine Ketones NEGATIVE Urine Blood MODERATE H Urine Nitrite NEGATIVE Ur Leukocyte Esterase NEGATIVE Urine WBC (Auto) 1 Urine RBC (Auto) 3 Impressions: Head CT 03/30/18 12:20 IMPRESSION: No acute intracranial findings. EVIDENCE OF ACUTE STROKE: NO. Lung Scan-VQ NM 03/30/18 14:40 IMPRESSION: Perfusion images show heterogeneous activity with multiple bilateral peripheral segmental defects. Chest X-Ray 03/30/18 17:28 IMPRESSION: Small patchy airspace opacities are present in the right lung base. Assessment & Plan - Diagnosis (1) Abnormal perfusion scan of lung Is this a current diagnosis for this admission?: Yes (2) Right lower lobe pulmonary infiltrate Is this a current diagnosis for this admission?: Yes (3) Chest pain Qualifiers: Chest pain type: unspecified Qualified Code(s): R07.9 - Chest pain, unspecified Is this a current diagnosis for this admission?: Yes (4) Essential hypertension Is this a current diagnosis for this admission?: Yes (5) CKD (chronic kidney disease) stage 4, GFR 15-29 ml/min Is this a current diagnosis for this admission?: Yes (6) Chronic lymphocytic leukemia Is this a current diagnosis for this admission?: Yes - Time Time Spent with patient: 25-34 minutes Medications reviewed and adjusted accordingly: Yes Anticipated discharge: Home with Homehealth Within: Other - Inpatient Certification Based on my medical assessment, after consideration of the patient's comorbidities, presenting symptoms, or acuity I expect that the services needed warrant INPATIENT care.: Yes I certify that my determination is in accordance with my understanding of Medicare's requirements for reasonable and necessary INPATIENT services [42 CFR 412.3e].: Yes Medical Necessity: Need Close Monitoring Due to Risk of Patient Decompensation, Need For IV Fluids, Need For Continuous Telemetry Monitoring, Need for IV Antibiotics, Risk of Complication if Not Cared For in Hospital Post Hospital 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 Adjust IV heparin infusion to keep PTT at 53 to 60 seconds range in view of her bleeding lesion. Her hemoglobin remain in satisfactory range. start on Robitussin 400 mg p.o q4hour prn for coughing. I will request CLINICAL TRANSFORMATION SPECIALIST consultation for further evaluation of her genital lesion.
[2018-04-01] MEDS: GUAIFENESIN SYRP 200 MG/10 ML UDC PO PRN ×2 (17:06→22:32)
[2018-04-01] MEDS: MONTELUKAST SODIUM 10 MG TABLET PO SCH (17:06)
[2018-04-02] MEDS: NORMAL SALINE 1000 ML 1,000 ML IV PRN (01:12)
[2018-04-02] MEDS: LANSOPRAZOLE 30 MG TAB.RAP.DR PO SCH (05:21)
[2018-04-02] MEDS: AZITHROMYCIN 500 MG in DEXTROSE 5%-WATER 250 ML IV SCH (11:04)
[2018-04-02] MEDS: METOPROLOL SUCCINATE 50 MG TAB.SR.24H PO SCH (11:04)
[2018-04-02] MEDS: SODIUM BICARBONATE 650 MG TABLET PO SCH ×2 (11:04→22:01)
[2018-04-02] MEDS: HEPARIN SODIUM,PORCINE/D5W 25,000 UNIT/250 ML RTUINJ IV PRN (11:06)
[2018-04-02] MEDS: CEFTRIAXONE SODIUM 1,000 MG in DEXTROSE 5%-WATER 50 ML IV SCH (15:23)
[2018-04-02] MEDS: GUAIFENESIN SYRP 200 MG/10 ML UDC PO PRN ×2 (15:25→22:01)
[2018-04-02] MEDS: MONTELUKAST SODIUM 10 MG TABLET PO SCH (19:26)
--- NOTE | 2018-04-02 21:15 | PDOC PROGRESS REPORT ---
Subjective Progress Note for:: 04/02/18 Subjective:: Patient seen by the bedside, she was admitted over the weekend with a concern for PE, a VQ scan was done, perfusion scan was done, that was abnormal, ED physician felt it was necessary to treat with heparin because it was felt that this could be PE. But patient is already on Eliquis anticoagulant for atrial fibrillation chronically, making PE unlikely. Unfortunately CTA could not be done because of CKD stage III. She has underlining CLL on chemotherapy. Also on the floor today, she is thrombocytopenic, we will discontinue IV heparin, start Eliquis 2 5 mg p.o. twice daily there is also concern for pneumonia, on antibiotic, she does have a lesion on the vulva that suggest herpes Reason For Visit: PROBABLE PULMONARY EMBOLISM,RIGHT LOWER LOBE Physical Exam Vital Signs: Temp Pulse Resp BP Pulse Ox 100.0 F 91 18 104/46 L 98 04/02/18 19:36 04/02/18 19:36 04/02/18 19:36 04/02/18 19:36 04/02/18 19:36 Intake & Output 04/01/18 04/02/18 04/03/18 06:59 06:59 06:59 Intake Total 2193 2180 901 Output Total 900 450 Balance 1293 2180 451 Weight 53.8 kg 55.6 kg General appearance: PRESENT: no acute distress Eye exam: PRESENT: PERRLA Respiratory exam: PRESENT: clear to auscultation sendy Cardiovascular exam: PRESENT: +S1, +S2 GI/Abdominal exam: PRESENT: soft Neurological exam: PRESENT: alert Results Laboratory Results: 04/01/18 06:49 04/01/18 06:49 Impressions: Head CT 03/30/18 12:20 IMPRESSION: No acute intracranial findings. EVIDENCE OF ACUTE STROKE: NO. Lung Scan-VQ NM 03/30/18 14:40 IMPRESSION: Perfusion images show heterogeneous activity with multiple bilateral peripheral segmental defects. Chest X-Ray 03/30/18 17:28 IMPRESSION: Small patchy airspace opacities are present in the right lung base. Assessment & Plan - Diagnosis (1) Pneumonia Qualifiers: Pneumonia type: due to unspecified organism Laterality: unspecified laterality Lung location: unspecified part of lung Qualified Code(s): J18.9 - Pneumonia, unspecified organism Is this a current diagnosis for this admission?: Yes Plan: Continue IV antibiotic, obtain CT chest (2) CLL (chronic lymphocytic leukemia) Is this a current diagnosis for this admission?: Yes (3) Thrombocytopenia Is this a current diagnosis for this admission?: Yes (4) Chronic atrial fibrillation Is this a current diagnosis for this admission?: Yes Plan: Continue Eliquis DC IV heparin (5) Herpes genitalia Qualifiers: Herpes simplex infection site: vulvovaginitis Qualified Code(s): A60.04 - Herpesviral vulvovaginitis Is this a current diagnosis for this admission?: Yes Plan: Obtain HSV PCR, start Valtrex
[2018-04-02 21:51] LABS: ABSOLUTE EOSINOPHILS # (AUTO) 0.1 10^3/uL (0.0-0.6); ABSOLUTE LYMPHOCYTES (AUTO) 1.5 10^3/uL (0.5-4.7); ABSOLUTE MONOCYTES (AUTO) 0.1 10^3/uL (0.1-1.4); ABSOLUTE NEUT (AUTO) 3.3 10^3/uL (1.7-8.2); BASOPHILS % (AUTO) 0.3 % (0-2); EOSINOPHILS % (AUTO) 2.2 % (0-6); HEMATOCRIT 24.4 % (36.0-47.0); HEMOGLOBIN 8.2 g/dL (12.0-15.5); LYMPHOCYTES % (AUTO) 29.7 % (13-45); MEAN CORPUSCULAR HEMOGLOBIN 32.8 pg (27.0-33.4); MEAN CORPUSCULAR HGB CONC 33.6 g/dL (32.0-36.0); MEAN CORPUSCULAR VOLUME 98 fl (80-97); MONOCYTES % (AUTO) 2.2 % (3-13); RED BLOOD COUNT 2.51 10^6/uL (3.72-5.28); RED CELL DISTRIBUTION WIDTH 15.2 % (11.5-14.0); SEGMENTED NEUTROPHILS % (AUTO) 65.6 % (42-78); TOTAL CELLS COUNTED % (AUTO) 100 %
[2018-04-02 21:52] LABS: PLATELET COUNT 80 10^3/uL (150-450)
[2018-04-02 21:56] LABS: ALANINE AMINOTRANSFERASE 19 U/L (9-52); ALBUMIN 2.7 g/dL (3.5-5.0); ALKALINE PHOSPHATASE 64 U/L (38-126); ANION GAP 8 (5-19); ASPARTATE AMINO TRANSFERASE 20 U/L (14-36); BILIRUBIN,DIRECT 0.3 mg/dL (0.0-0.4); BILIRUBIN,TOTAL 0.5 mg/dL (0.2-1.3); BLOOD UREA NITROGEN 37 mg/dL (7-20); CALCIUM 8.2 mg/dL (8.4-10.2); CARBON DIOXIDE 23 mmol/L (22-30); CHLORIDE 106 mmol/L (98-107); GLUCOSE 130 mg/dL (75-110); POTASSIUM 4.3 mmol/L (3.6-5.0); SODIUM 136.9 mmol/L (137-145); TOTAL PROTEIN 5.8 g/dL (6.3-8.2)
[2018-04-02] MEDS: VALACYCLOVIR HCL 500 MG TABLET PO SCH (22:01)
[2018-04-02] MEDS: APIXABAN 2.5 MG TABLET PO SCH (22:01)
[2018-04-03] MEDS: LANSOPRAZOLE 30 MG TAB.RAP.DR PO SCH (05:11)
[2018-04-03 06:28] LABS: HEMOGLOBIN 8.5 g/dL (12.0-15.5); MEAN CORPUSCULAR HEMOGLOBIN 33.1 pg (27.0-33.4); MEAN CORPUSCULAR HGB CONC 34.1 g/dL (32.0-36.0); MEAN CORPUSCULAR VOLUME 97 fl (80-97); RED BLOOD COUNT 2.57 10^6/uL (3.72-5.28); RED CELL DISTRIBUTION WIDTH 14.7 % (11.5-14.0); WHITE BLOOD COUNT 5.1 10^3/uL (4.0-10.5)
[2018-04-03 06:45] LABS: PLATELET COUNT 80 10^3/uL (150-450)
[2018-04-03] MEDS: NORMAL SALINE 1000 ML 1,000 ML IV PRN ×2 (07:07→21:17)
[2018-04-03] MEDS: ACETAMINOPHEN 325 MG TABLET PO PRN (07:07)
--- NOTE | 2018-04-03 07:20 | PDOC CONSULTATION ---
Consultation Consult Date: 04/03/18 Consult reason:: bloody lesions on vulva History of Present Illness Admission Date/PCP: 03/30/18 17:51 ERUM HENAO MD Patient complains of: sob/chest pain, blood on vulva History of Present Illness: JANET ABBOTT is a 72 year old female who ws admitted for management of chest pains, shortness of breath and rhinorrea. Incidental findings of bleeding lesions on the vulva. poatint denies any previous episodes of lesions, denies pain or itching. Past Medical History Cardiac Medical History: Reports: Atrial Fibrillation - paroxysmal type, Hypertension Denies: Myocardial Infarction Pulmonary Medical History: Reports: Bronchitis, Chronic Obstructive Pulmonary Disease (COPD), Pneumonia Denies: Asthma, Tuberculosis Neurological Medical History: Denies: Seizures Renal/ Medical History: Reports: Chronic Kidney Disease Malignancy Medical History: Reports: Leukemia - chronic lymphocytic leukemia Musculoskeltal Medical History: Reports: Arthritis - osteoarthritis Psychiatric Medical History: Denies: Depression Infectious Medical History: Reports: Methicillin-Resistant Staph Aureus Social History Smoking Status: Never Smoker Frequency of Alcohol Use: None Hx Recreational Drug Use: No Drugs: None Hx Prescription Drug Abuse: No - Advance Directive Resuscitation Status: Full Code Family History Family History: None, Hypertension Parental Family History Reviewed: Yes Children Family History Reviewed: Yes Sibling(s) Family History Reviewed.: Yes Medication/Allergy Home Medications: Montelukast Sodium [Singulair 10 mg Tablet] 10 mg PO QPM 08/04/17 Metoprolol Succinate [Toprol Xl] 50 mg PO DAILY 02/23/18 Sodium Bicarbonate [Sodium Bicarbonate 650 mg Tablet] 650 mg PO Q12 #60 tablet 02/23/18 Ergocalciferol (Vitamin D2) [Drisdol 50,000 Unit (1.25MG) Capsule] 1 cap PO MENDOZA@ 1000 PRN 03/30/18 Apixaban [Eliquis 2.5 mg Tablet] 2.5 mg PO BID 03/31/18 Allergies/Adverse Reactions: No Known Allergies Allergy (Verified 03/30/18 12:45) Review of Systems Constitutional: PRESENT: as per HPI Physical Exam - Physical Exam Vital Signs: Temp Pulse Resp BP Pulse Ox 100.0 F 94 18 104/53 L 96 04/03/18 03:28 04/03/18 03:28 04/03/18 03:28 04/03/18 03:28 04/03/18 03:28 Intake & Output 04/02/18 04/03/18 04/04/18 06:59 06:59 06:59 Intake Total 2180 1983 Output Total 450 Balance 2180 1533 Weight 55.6 kg 54.6 kg - Gynecological Exam Labia: lesions - on both labia and near clitoral flaherty that are actively bleeding and draining clear fluid Rectovaginal: lesions Result Laboratory Results: 04/03/18 05:52 04/02/18 21:33 04/02/18 04/02/18 04/03/18 21:33 21:33 05:52 WBC 5.0 5.1 RBC 2.51 L 2.57 L Hgb 8.2 L 8.5 L Hct 24.4 L 25.0 L MCV 98 H 97 MCH 32.8 33.1 MCHC 33.6 34.1 RDW 15.2 H 14.7 H Plt Count 80 L 80 L Seg Neutrophils % 65.6 Lymphocytes % 29.7 Monocytes % 2.2 L Eosinophils % 2.2 Basophils % 0.3 Absolute Neutrophils 3.3 Absolute Lymphocytes 1.5 Absolute Monocytes 0.1 Absolute Eosinophils 0.1 Absolute Basophils 0.0 Sodium 136.9 L Potassium 4.3 Chloride 106 Carbon Dioxide 23 Anion Gap 8 BUN 37 H Creatinine 2.07 H Est GFR ( Amer) 29 L Est GFR (Non-Af Amer) 24 L Glucose 130 H Calcium 8.2 L Total Bilirubin 0.5 AST 20 ALT 19 Alkaline Phosphatase 64 Total Protein 5.8 L Albumin 2.7 L Impressions: Head CT 03/30/18 12:20 IMPRESSION: No acute intracranial findings. EVIDENCE OF ACUTE STROKE: NO. Lung Scan-VQ NM 03/30/18 14:40 IMPRESSION: Perfusion images show heterogeneous activity with multiple bilateral peripheral segmental defects. Chest X-Ray 03/30/18 17:28 IMPRESSION: Small patchy airspace opacities are present in the right lung base. Assessment & Plan - Diagnosis (1) Herpes genitalia Qualifiers: Herpes simplex infection site: vulvovaginitis Qualified Code(s): A60.04 - Herpesviral vulvovaginitis Is this a current diagnosis for this admission?: Yes - Plan Summary Plan Summary: patient already has valtrex therapy initiated. would continue this and await results of HAV culture. lesions are consistent with likely herpetic outbreak although patient denies any previous history. she does indicate a history of shingles, however, these lesions are not necessarily consitent with a shingles outbreak.
--- NOTE | 2018-04-03 08:50 | RADIOLOGY REPORT (SQ) ---
EXAM DESCRIPTION: CT CHEST WITHOUT COMPLETED DATE/TIME: 04/03/2018 7:53 am REASON FOR STUDY: pneumonia COMPARISON: 06/27/2017 TECHNIQUE: CT scan performed of the chest without intravenous contrast. Images reviewed with lung, soft tissue and bone windows. Reconstructed coronal and sagittal MPR images reviewed. All images st ored on PACS. All CT scanners at this facility use dose modulation, iterative reconstruction, and/or weight based d osing when appropriate to reduce radiation dose to as low as reasonably achievable (ALARA). [facility]: Dose Right [facility]: CareDose [facility]: Dose Right [facility]: Teradose 4D [facility]: [employer] P[employer] Products RADIATION DOSE: mGy. LIMITATIONS: No technical limitations. FINDINGS: LUNGS AND PLEURA: Chronic bronchiectasis medial right lower lobe. Subsegmental patchy air space disease in the right lower lobe, middle lobe and lingula. No effusions. Dependent density in the proximal trachea most likely mucous. HILAR AND MEDIASTINAL STRUCTURES: No identified masses or abnormal nodes. No obvious aneurysm. HEART AND VASCULAR STRUCTURES: No aneurysm. No pericardial effusion. UPPER ABDOMEN: No significant findings. Limited exam. THYROID AND OTHER SOFT TISSUES: No masses. No adenopathy. BONES: No acute finding. HARDWARE: None in the chest. OTHER: No other significant findings. IMPRESSION: Bilateral pneumonia. TECHNICAL DOCUMENTATION: JOB ID: [id number] Quality ID # [id number]: Final reports with documentation of one or more dose reduction techniques (e.g., Au tomated exposure control, adjustment of the mA and/or kV according to patient size, use of iterative reconstruction technique) 2010 [employer]- All Rights Reserved Reading location - IP/workstation name: [email or web address]
[2018-04-03] MEDS: SODIUM BICARBONATE 650 MG TABLET PO SCH ×2 (10:15→21:16)
[2018-04-03] MEDS: VALACYCLOVIR HCL 500 MG TABLET PO SCH ×2 (10:15→21:16)
[2018-04-03] MEDS: APIXABAN 2.5 MG TABLET PO SCH ×2 (10:15→21:16)
[2018-04-03] MEDS: METOPROLOL SUCCINATE 50 MG TAB.SR.24H PO SCH (10:16)
[2018-04-03] MEDS: AZITHROMYCIN 250 MG TABLET PO SCH (10:16)
[2018-04-03] MEDS: CEFTRIAXONE SODIUM 1,000 MG in DEXTROSE 5%-WATER 50 ML IV SCH (13:35)
[2018-04-03] MEDS: GUAIFENESIN SYRP 200 MG/10 ML UDC PO PRN (13:35)
--- NOTE | 2018-04-03 16:52 | PDOC PROGRESS REPORT ---
Subjective Progress Note for:: 04/03/18 Subjective:: Patient seen by the bedside, CT chest was done without contrast, it demonstrated chronic bronchiectasis, medial right lower lobe, subsegmental patchy airspace disease in the right lower lobe middle lobe and lingula. Yesterday IV heparin was discontinued because she was thrombocytopenic, unlikely to be heparin-induced,thrombocytopenia, she is coughing a lot, is a dry cough Reason For Visit: PROBABLE PULMONARY EMBOLISM,RIGHT LOWER LOBE Physical Exam Vital Signs: Temp Pulse Resp BP Pulse Ox 100.0 F 81 18 104/53 L 96 04/03/18 03:28 04/03/18 07:00 04/03/18 03:28 04/03/18 03:28 04/03/18 03:28 Intake & Output 04/02/18 04/03/18 04/04/18 06:59 06:59 06:59 Intake Total 2180 1983 50 Output Total 450 Balance 2180 1533 50 Weight 55.6 kg 54.6 kg General appearance: PRESENT: other - She is alert oriented, persistently coughing Eye exam: PRESENT: PERRLA Respiratory exam: PRESENT: rhonchi GI/Abdominal exam: PRESENT: soft Neurological exam: PRESENT: alert Results Laboratory Results: 04/03/18 05:52 04/02/18 21:33 04/02/18 04/02/18 04/03/18 21:33 21:33 05:52 WBC 5.0 5.1 RBC 2.51 L 2.57 L Hgb 8.2 L 8.5 L Hct 24.4 L 25.0 L MCV 98 H 97 MCH 32.8 33.1 MCHC 33.6 34.1 RDW 15.2 H 14.7 H Plt Count 80 L 80 L Seg Neutrophils % 65.6 Lymphocytes % 29.7 Monocytes % 2.2 L Eosinophils % 2.2 Basophils % 0.3 Absolute Neutrophils 3.3 Absolute Lymphocytes 1.5 Absolute Monocytes 0.1 Absolute Eosinophils 0.1 Absolute Basophils 0.0 Sodium 136.9 L Potassium 4.3 Chloride 106 Carbon Dioxide 23 Anion Gap 8 BUN 37 H Creatinine 2.07 H Est GFR ( Amer) 29 L Est GFR (Non-Af Amer) 24 L Glucose 130 H Calcium 8.2 L Total Bilirubin 0.5 AST 20 ALT 19 Alkaline Phosphatase 64 Total Protein 5.8 L Albumin 2.7 L Impressions: Head CT 03/30/18 12:20 IMPRESSION: No acute intracranial findings. EVIDENCE OF ACUTE STROKE: NO. Lung Scan-VQ NM 03/30/18 14:40 IMPRESSION: Perfusion images show heterogeneous activity with multiple bilateral peripheral segmental defects. Chest X-Ray 03/30/18 17:28 IMPRESSION: Small patchy airspace opacities are present in the right lung base. Chest CT 04/02/18 00:00 IMPRESSION: Bilateral pneumonia. Assessment & Plan - Diagnosis (1) Pneumonia Qualifiers: Pneumonia type: due to unspecified organism Laterality: unspecified laterality Lung location: unspecified part of lung Qualified Code(s): J18.9 - Pneumonia, unspecified organism Is this a current diagnosis for this admission?: Yes Plan: Sputum culture grew gram-negative xi, presently on ceftriaxone and azithromycin , continue same until specific organism is known (2) CLL (chronic lymphocytic leukemia) Is this a current diagnosis for this admission?: Yes (3) Thrombocytopenia Is this a current diagnosis for this admission?: Yes Plan: Question, and heparin-induced thrombocytopenia, order H IT antibodies (4) Chronic atrial fibrillation Is this a current diagnosis for this admission?: Yes (5) Herpes genitalia Qualifiers: Herpes simplex infection site: vulvovaginitis Qualified Code(s): A60.04 - Herpesviral vulvovaginitis Is this a current diagnosis for this admission?: Yes Plan: She was seen by [facility] earlier today, continue empiric Valtrex, HSV PCR pending
[2018-04-03] MEDS: MONTELUKAST SODIUM 10 MG TABLET PO SCH (17:39)
[2018-04-03] MEDS ORDERED: DOCUSATE SODIUM 100 MG CAPSULE PO ONE ×2 (21:30→22:00)
[2018-04-04] MEDS: LANSOPRAZOLE 30 MG TAB.RAP.DR PO SCH (05:00)
[2018-04-04] MEDS: DOCUSATE SODIUM 100 MG CAPSULE PO SCH ×2 (09:54→17:24)
[2018-04-04] MEDS: METOPROLOL SUCCINATE 50 MG TAB.SR.24H PO SCH (09:54)
[2018-04-04] MEDS: AZITHROMYCIN 250 MG TABLET PO SCH (09:54)
[2018-04-04] MEDS: APIXABAN 2.5 MG TABLET PO SCH ×2 (09:54→21:31)
[2018-04-04] MEDS: GUAIFENESIN SYRP 200 MG/10 ML UDC PO PRN ×2 (09:54→22:41)
[2018-04-04] MEDS: VALACYCLOVIR HCL 500 MG TABLET PO SCH ×2 (09:54→21:31)
[2018-04-04] MEDS: NORMAL SALINE 1000 ML 1,000 ML IV PRN ×2 (09:54→18:34)
[2018-04-04] MEDS: SODIUM BICARBONATE 650 MG TABLET PO SCH ×2 (09:55→21:31)
[2018-04-04] MEDS: CEFTRIAXONE SODIUM 1,000 MG in DEXTROSE 5%-WATER 50 ML IV SCH (13:30)
[2018-04-04] MEDS: MONTELUKAST SODIUM 10 MG TABLET PO SCH (17:24)
[2018-04-04 19:36] LABS: HSV I DNA Negative (Negative)
[2018-04-04] MEDS: IMIPENEM/CILASTATIN SODIUM 500 MG in NORMAL SALINE 100 ML IV SCH (19:40)
--- NOTE | 2018-04-04 21:08 | PDOC PROGRESS REPORT ---
Subjective Progress Note for:: 04/04/18 Subjective:: Patient was seen by the bedside she complained of constipation, the sputum culture grew Citrobacter and Pseudomonas both sensitive to imipenem Reason For Visit: PROBABLE PULMONARY EMBOLISM,RIGHT LOWER LOBE Physical Exam Vital Signs: Temp Pulse Resp BP Pulse Ox 98.1 F 75 20 142/68 H 95 04/04/18 19:22 04/04/18 19:22 04/04/18 19:22 04/04/18 19:22 04/04/18 19:22 Intake & Output 04/03/18 04/04/18 04/05/18 06:59 06:59 06:59 Intake Total 1982 2181 2657 Output Total 450 750 850 Balance 1533 1431 1807 Weight 54.6 kg 53.7 kg General appearance: PRESENT: no acute distress Eye exam: PRESENT: PERRLA Respiratory exam: PRESENT: rhonchi Cardiovascular exam: PRESENT: +S1, +S2 GI/Abdominal exam: PRESENT: soft Neurological exam: PRESENT: alert, CN II-XII grossly intact Results Laboratory Results: 04/03/18 05:52 04/02/18 21:33 04/01/18 11:00 Sputum Gram Stain - Final 04/01/18 11:00 Sputum Sputum Culture - Final Citrobacter Freundii Pseudomonas Aeruginosa Reduced Normal Josy Impressions: Head CT 03/30/18 12:20 IMPRESSION: No acute intracranial findings. EVIDENCE OF ACUTE STROKE: NO. Lung Scan-VQ NM 03/30/18 14:40 IMPRESSION: Perfusion images show heterogeneous activity with multiple bilateral peripheral segmental defects. Chest X-Ray 03/30/18 17:28 IMPRESSION: Small patchy airspace opacities are present in the right lung base. Chest CT 04/02/18 00:00 IMPRESSION: Bilateral pneumonia. Assessment & Plan - Diagnosis (1) Pneumonia Qualifiers: Pneumonia type: due to unspecified organism Laterality: unspecified laterality Lung location: unspecified part of lung Qualified Code(s): J18.9 - Pneumonia, unspecified organism Is this a current diagnosis for this admission?: Yes (2) CLL (chronic lymphocytic leukemia) Is this a current diagnosis for this admission?: Yes (3) Thrombocytopenia Is this a current diagnosis for this admission?: Yes (4) Chronic atrial fibrillation Is this a current diagnosis for this admission?: Yes (5) Herpes genitalia Qualifiers: Herpes simplex infection site: vulvovaginitis Qualified Code(s): A60.04 - Herpesviral vulvovaginitis Is this a current diagnosis for this admission?: Yes (6) Pseudomonal pneumonia Qualifiers: Laterality: unspecified laterality Lung location: unspecified part of lung Qualified Code(s): J15.1 - Pneumonia due to Pseudomonas Is this a current diagnosis for this admission?: Yes Plan: DC ceftriaxone, azithromycin start imipenem (7) Citrobacter infection Is this a current diagnosis for this admission?: Yes (8) Constipation Qualifiers: Constipation type: unspecified constipation type Qualified Code(s): K59.00 - Constipation, unspecified Is this a current diagnosis for this admission?: Yes Plan: Molasses enema
[2018-04-04] MEDS: ACETAMINOPHEN 325 MG TABLET PO PRN (23:09)
[2018-04-05 03:46] LABS: HSV II DNA Positive (Negative)
[2018-04-05] MEDS: LANSOPRAZOLE 30 MG TAB.RAP.DR PO SCH (05:21)
[2018-04-05] MEDS: IMIPENEM/CILASTATIN SODIUM 500 MG in NORMAL SALINE 100 ML IV SCH ×4 (06:22→17:41)
[2018-04-05 06:29] LABS: HEMATOCRIT 25.3 % (36.0-47.0); HEMOGLOBIN 8.5 g/dL (12.0-15.5); MEAN CORPUSCULAR HEMOGLOBIN 32.7 pg (27.0-33.4); MEAN CORPUSCULAR HGB CONC 33.8 g/dL (32.0-36.0); MEAN CORPUSCULAR VOLUME 97 fl (80-97); RED BLOOD COUNT 2.61 10^6/uL (3.72-5.28); WHITE BLOOD COUNT 4.6 10^3/uL (4.0-10.5)
[2018-04-05 06:47] LABS: PLATELET COUNT 83 10^3/uL (150-450)
[2018-04-05] MEDS: NORMAL SALINE 1000 ML 1,000 ML IV PRN ×2 (07:43→17:41)
[2018-04-05] MEDS: ACETAMINOPHEN 325 MG TABLET PO PRN ×2 (07:43→22:04)
[2018-04-05] MEDS: APIXABAN 2.5 MG TABLET PO SCH ×2 (09:38→22:03)
[2018-04-05] MEDS: SODIUM BICARBONATE 650 MG TABLET PO SCH ×2 (09:38→22:03)
[2018-04-05] MEDS: METOPROLOL SUCCINATE 50 MG TAB.SR.24H PO SCH (09:39)
[2018-04-05] MEDS: DOCUSATE SODIUM 100 MG CAPSULE PO SCH ×2 (09:39→17:41)
--- NOTE | 2018-04-05 11:01 | Physician Advisory Note ---
Physician Advisor ProgressNote .: [facility] have [facility] for this patient. Physician Advisor Statement: please consider documenting, if you agree: 1. "Chronic Bronchiectasis RLL" per CT 2. ? "pancytopenia due to chemotx, on adm" 3. ? "Acute Kidney Injury, improving, suspect due to " - & state what is her likely baseline Cr. Thanks! CK
[2018-04-05] MEDS: MONTELUKAST SODIUM 10 MG TABLET PO SCH (17:41)
--- NOTE | 2018-04-05 20:35 | PDOC PROGRESS REPORT ---
Subjective Progress Note for:: 04/05/18 Subjective:: Patient was seen by the bedside, she had episode of increased anxiety last night but this morning she is better. 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, she is already empirically started on Valtrex Reason For Visit: PROBABLE PULMONARY EMBOLISM,RIGHT LOWER LOBE Physical Exam Vital Signs: Temp Pulse Resp BP Pulse Ox 98.1 F 66 14 129/84 H 100 04/05/18 19:48 04/05/18 19:48 04/05/18 19:48 04/05/18 19:48 04/05/18 19:48 Intake & Output 04/04/18 04/05/18 04/06/18 06:59 06:59 06:59 Intake Total 2181 3857 1986 Output Total 750 850 Balance 1431 3007 1986 Weight 53.7 kg 57.3 kg General appearance: PRESENT: no acute distress Eye exam: PRESENT: PERRLA Respiratory exam: PRESENT: rhonchi Cardiovascular exam: PRESENT: +S1, +S2 GI/Abdominal exam: PRESENT: soft Neurological exam: PRESENT: alert Results Laboratory Results: 04/05/18 05:45 04/02/18 21:33 04/05/18 05:45 WBC 4.6 RBC 2.61 L Hgb 8.5 L Hct 25.3 L MCV 97 MCH 32.7 MCHC 33.8 RDW 15.0 H Plt Count 83 L Impressions: Head CT 03/30/18 12:20 IMPRESSION: No acute intracranial findings. EVIDENCE OF ACUTE STROKE: NO. Lung Scan-VQ NM 03/30/18 14:40 IMPRESSION: Perfusion images show heterogeneous activity with multiple bilateral peripheral segmental defects. Chest X-Ray 03/30/18 17:28 IMPRESSION: Small patchy airspace opacities are present in the right lung base. Chest CT 04/02/18 00:00 IMPRESSION: Bilateral pneumonia. Assessment & Plan - Diagnosis (1) Pneumonia Qualifiers: Pneumonia type: due to unspecified organism Laterality: unspecified laterality Lung location: unspecified part of lung Qualified Code(s): J18.9 - Pneumonia, unspecified organism Is this a current diagnosis for this admission?: Yes (2) CLL (chronic lymphocytic leukemia) Is this a current diagnosis for this admission?: Yes (3) Thrombocytopenia Is this a current diagnosis for this admission?: Yes (4) Chronic atrial fibrillation Is this a current diagnosis for this admission?: Yes (5) Herpes genitalia Qualifiers: Herpes simplex infection site: vulvovaginitis Qualified Code(s): A60.04 - Herpesviral vulvovaginitis Is this a current diagnosis for this admission?: Yes (6) Pseudomonal pneumonia Qualifiers: Laterality: unspecified laterality Lung location: unspecified part of lung Qualified Code(s): J15.1 - Pneumonia due to Pseudomonas Is this a current diagnosis for this admission?: Yes (7) Citrobacter infection Is this a current diagnosis for this admission?: Yes (8) Constipation Qualifiers: Constipation type: unspecified constipation type Qualified Code(s): K59.00 - Constipation, unspecified Is this a current diagnosis for this admission?: Yes (9) Chronic kidney disease, stage 3 Is this a current diagnosis for this admission?: Yes - Plan Summary Plan Summary: Continue IV antibiotic, p.o. Valtrex
[2018-04-05] MEDS: VALACYCLOVIR HCL 500 MG TABLET PO SCH (22:03)
[2018-04-06] MEDS: IMIPENEM/CILASTATIN SODIUM 500 MG in NORMAL SALINE 100 ML IV SCH ×2 (05:23→17:31)
[2018-04-06] MEDS: LANSOPRAZOLE 30 MG TAB.RAP.DR PO SCH (05:26)
[2018-04-06 06:37] LABS: HEMATOCRIT 22.8 % (36.0-47.0); MEAN CORPUSCULAR HGB CONC 33.8 g/dL (32.0-36.0); MEAN CORPUSCULAR VOLUME 98 fl (80-97); RED BLOOD COUNT 2.33 10^6/uL (3.72-5.28); RED CELL DISTRIBUTION WIDTH 15.3 % (11.5-14.0); WHITE BLOOD COUNT 3.5 10^3/uL (4.0-10.5)
[2018-04-06 06:49] LABS: HEMOGLOBIN 7.7 g/dL (12.0-15.5)
[2018-04-06 06:54] LABS: PLATELET COUNT 74 10^3/uL (150-450)
[2018-04-06] MEDS: ACETAMINOPHEN 325 MG TABLET PO PRN ×2 (07:38→23:34)
[2018-04-06] MEDS: BENZOCAINE/MENTHOL SORE THROAT LOZENGE BUCCAL PRN (08:16)
[2018-04-06] MEDS: GUAIFENESIN SYRP 200 MG/10 ML UDC PO PRN (08:16)
[2018-04-06] MEDS ORDERED: IPRATROPIUM/ALBUTEROL 0.5-2.5 MG/3 ML AMPUL NEB PRN (09:37)
[2018-04-06] MEDS ORDERED: NORMAL SALINE 1000 ML 1,000 ML IV PRN (09:37)
[2018-04-06] MEDS ORDERED: NORMAL SALINE 250 ML IV PRN ×2 (09:39)
[2018-04-06] MEDS ORDERED: FUROSEMIDE INJ/PF 20 MG/2 ML SDV IV PRN (09:39)
[2018-04-06] MEDS: APIXABAN 2.5 MG TABLET PO SCH (10:18)
--- NOTE | 2018-04-06 10:18 | PDOC PROGRESS REPORT ---
Subjective Progress Note for:: 04/06/18 Subjective:: Patient is admitted because of pneumonia COPD still complaining of some cough congestion's still feel like unable to breathe very well Patient had a VQ scan done was negative Patient is on Eliquis due to the A. fib Patient hemoglobin is 7.7 Denied any blood in the stools no black stools Denied any chest pain No other symptoms Patient is alert awake oriented x4 Patients wants to eat some good food does not like the hospital food Reason For Visit: PROBABLE PULMONARY EMBOLISM,RIGHT LOWER LOBE Physical Exam Vital Signs: Temp Pulse Resp BP Pulse Ox 97.6 F 61 16 135/65 H 97 04/06/18 07:30 04/06/18 07:30 04/06/18 07:30 04/06/18 07:30 04/06/18 07:30 Intake & Output 04/05/18 04/06/18 04/07/18 06:59 06:59 06:59 Intake Total 3857 3624 100 Output Total 850 Balance 3007 3624 100 Weight 57.3 kg 56.4 kg General appearance: PRESENT: no acute distress, well-developed, well-nourished Head exam: PRESENT: atraumatic, normocephalic Eye exam: PRESENT: conjunctiva pink, EOMI, PERRLA. ABSENT: scleral icterus Ear exam: PRESENT: normal external ear exam Mouth exam: PRESENT: moist, tongue midline Neck exam: PRESENT: full ROM. ABSENT: carotid bruit, JVD, lymphadenopathy, thyromegaly Respiratory exam: PRESENT: clear to auscultation sendy Cardiovascular exam: PRESENT: RRR. ABSENT: diastolic murmur, rubs, systolic murmur Pulses: PRESENT: normal dorsalis pedis pul, +2 pedal pulses bilateral Vascular exam: PRESENT: normal capillary refill GI/Abdominal exam: PRESENT: normal bowel sounds, soft. ABSENT: distended, guarding, mass, organolmegaly, rebound, tenderness Rectal exam: PRESENT: deferred Extremities exam: ABSENT: pedal edema Neurological exam: PRESENT: alert, awake, oriented to person, oriented to place , oriented to time, oriented to situation, CN II-XII grossly intact. ABSENT: motor sensory deficit Psychiatric exam: PRESENT: appropriate affect, normal mood. ABSENT: homicidal ideation, suicidal ideation Skin exam: PRESENT: dry, intact, warm. ABSENT: cyanosis, rash Results Laboratory Results: 04/06/18 05:31 04/02/18 21:33 04/06/18 05:31 WBC 3.5 L RBC 2.33 L Hgb 7.7 L Hct 22.8 L MCV 98 H MCH 33.0 MCHC 33.8 RDW 15.3 H Plt Count 74 L Impressions: Head CT 03/30/18 12:20 IMPRESSION: No acute intracranial findings. EVIDENCE OF ACUTE STROKE: NO. Lung Scan-VQ NM 03/30/18 14:40 IMPRESSION: Perfusion images show heterogeneous activity with multiple bilateral peripheral segmental defects. Chest CT 04/02/18 00:00 IMPRESSION: Bilateral pneumonia. Assessment & Plan - Diagnosis (1) Pseudomonal pneumonia Qualifiers: Laterality: unspecified laterality Lung location: unspecified part of lung Qualified Code(s): J15.1 - Pneumonia due to Pseudomonas Is this a current diagnosis for this admission?: Yes Plan: Continue IV antibiotic We will consult the pulmonary Check a chest x-ray and ABG (2) CKD (chronic kidney disease) stage 4, GFR 15-29 ml/min Is this a current diagnosis for this admission?: Yes (3) CLL (chronic lymphocytic leukemia) Is this a current diagnosis for this admission?: Yes Plan: pt currently seeing Dr. Barahona as outpatient (4) Chronic atrial fibrillation Is this a current diagnosis for this admission?: Yes Plan: Patient is currently on Eliquis Patient's platelet count is currently low I think we should hold the Eliquis at this point with the low platelet count and a low hemoglobin (5) Shortness of breath Is this a current diagnosis for this admission?: Yes Plan: Will get the ABG and a chest x-ray (6) Thrombocytopenia Is this a current diagnosis for this admission?: Yes Plan: Will continues to monitor the patient (7) Anemia Qualifiers: Anemia type: other cause Other causes of anemia: other cause, not classified Qualified Code(s): D64.89 - Other specified anemias Is this a current diagnosis for this admission?: Yes Plan: The symptomatic anemia we will transfuse the 1 unit for blood - Time Time Spent with patient: 25-34 minutes Medications reviewed and adjusted accordingly: Yes Anticipated discharge: Other Within: Other - Inpatient Certification Medical Necessity: Need Close Monitoring Due to Risk of Patient Decompensation, Need for IV Antibiotics Post Hospital Care: D/C [facility] Documentation - Plan Summary Plan Summary: Continues current medication
[2018-04-06 10:34] LABS: ARTERIAL BLOOD BASE EXCESS 2.5 mmol/L; ARTERIAL BLOOD FIO2 1L; ARTERIAL BLOOD H2CO3 1.28 mmol/L (1.05-1.35); ARTERIAL BLOOD HCO3 27.1 mmol/L (20-24); ARTERIAL BLOOD PCO2 42.5 mmHg (35-45); ARTERIAL BLOOD PH 7.42 (7.35-7.45); ARTERIAL BLOOD PO2 155.8 mmHg (80-100); ARTERIAL BLOOD TOTAL CO2 28.4 mmol/L (21-25)
--- NOTE | 2018-04-06 10:37 | RADIOLOGY REPORT (SQ) ---
EXAM DESCRIPTION: CHEST SINGLE VIEW COMPLETED DATE/TIME: 04/06/2018 10:11 am REASON FOR STUDY: sob COMPARISON: CT chest 04/03/2018 Chest films 03/30/2018, 03/10/2018, 02/20/2018 EXAM PARAMETERS: NUMBER OF VIEWS: One view. TECHNIQUE: Single frontal radiographic view of the chest acquired. RADIATION DOSE: NA LIMITATIONS: None. FINDINGS: LUNGS AND PLEURA: Patchy consolidation right middle and lower lobe worrisome for pneumonia . Left lung grossly clear. No pleural effusions or pneumothorax. MEDIASTINUM AND HILAR STRUCTURES: No masses. Contour normal. HEART AND VASCULAR STRUCTURES: Stable mild cardiomegaly BONES: No acute findings. HARDWARE: Right permanent central line tip superior vena cava. Surgical clips left upper quadrant OTHER: No other significant finding. IMPRESSION: Right middle and lower lobe airspace disease worrisome for pneumonia TECHNICAL DOCUMENTATION: JOB ID: [id number] [employer]- All Rights Reserved Reading location - IP/workstation name: [email or web address]
[2018-04-06] MEDS: DOCUSATE SODIUM 100 MG CAPSULE PO SCH ×2 (10:40→17:31)
[2018-04-06] MEDS: SODIUM BICARBONATE 650 MG TABLET PO SCH ×2 (10:40→21:48)
[2018-04-06] MEDS: METOPROLOL SUCCINATE 50 MG TAB.SR.24H PO SCH (10:40)
[2018-04-06] MEDS: GUAIFENESIN 600 MG TABLET.SA PO SCH ×2 (10:40→21:43)
[2018-04-06] MEDS: MONTELUKAST SODIUM 10 MG TABLET PO SCH (17:31)
[2018-04-06 17:57] LABS: HEMATOCRIT 28.5 % (36.0-47.0); HEMOGLOBIN 9.4 g/dL (12.0-15.5); MEAN CORPUSCULAR HEMOGLOBIN 31.3 pg (27.0-33.4); MEAN CORPUSCULAR HGB CONC 33.1 g/dL (32.0-36.0); MEAN CORPUSCULAR VOLUME 95 fl (80-97); RED BLOOD COUNT 3.01 10^6/uL (3.72-5.28); RED CELL DISTRIBUTION WIDTH 16.5 % (11.5-14.0); WHITE BLOOD COUNT 3.9 10^3/uL (4.0-10.5)
[2018-04-06 17:58] LABS: PLATELET COUNT 71 10^3/uL (150-450)
[2018-04-06 18:11] LABS: ABSOLUTE LYMPHOCYTES# (MANUAL) 2.1 10^3/uL (0.5-4.7); ABSOLUTE MONOCYTES # (MANUAL) 0.1 10^3/uL (0.1-1.4); ABSOLUTE NEUTROPHILS# (MANUAL) 1.7 10^3/uL (1.7-8.2); BASOPHILS % (MANUAL) 0 % (0-2); EOSINOPHILS % (MANUAL) 2 % (0-6); LYMPHOCYTES % (MANUAL) 50 % (13-45); MONOCYTES % (MANUAL) 2 % (3-13); NUCLEATED RED BLOOD CELLS 1 /100 WBC (0); SEGMENTED NEUTROPHILS % (MAN) 43 % (42-78); TOTAL CELLS COUNTED 100
[2018-04-06 18:12] LABS: ANISOCYTOSIS 1+; PLATELET COMMENT DECREASED; TARGET CELLS SLIGHT; TOXIC GRANULATION SLIGHT
[2018-04-06] MEDS: VALACYCLOVIR HCL 500 MG TABLET PO SCH (21:44)
[2018-04-07] MEDS: LANSOPRAZOLE 30 MG TAB.RAP.DR PO SCH (05:27)
[2018-04-07] MEDS: IMIPENEM/CILASTATIN SODIUM 500 MG in NORMAL SALINE 100 ML IV SCH ×2 (05:27→19:24)
[2018-04-07] MEDS: GUAIFENESIN SYRP 200 MG/10 ML UDC PO PRN ×2 (08:15→21:23)
[2018-04-07] MEDS: METOPROLOL SUCCINATE 50 MG TAB.SR.24H PO SCH (09:42)
[2018-04-07] MEDS: GUAIFENESIN 600 MG TABLET.SA PO SCH ×2 (09:45→21:23)
[2018-04-07] MEDS: DOCUSATE SODIUM 100 MG CAPSULE PO SCH ×2 (09:45→19:25)
[2018-04-07] MEDS: SODIUM BICARBONATE 650 MG TABLET PO SCH ×2 (09:45→21:23)
[2018-04-07] MEDS: BENZOCAINE/MENTHOL SORE THROAT LOZENGE BUCCAL PRN (09:45)
[2018-04-07] MEDS: ERGOCALCIFEROL (VITAMIN D2) 50000 UNIT (1.25 MG) CAPSULE PO SCH (09:49)
[2018-04-07] MEDS: APIXABAN 2.5 MG TABLET PO SCH (10:26)
--- NOTE | 2018-04-07 10:54 | PDOC PROGRESS REPORT ---
Subjective Progress Note for:: 04/07/18 Reason For Visit: PROBABLE PULMONARY EMBOLISM,RIGHT LOWER LOBE Physical Exam Vital Signs: Temp Pulse Resp BP Pulse Ox 97.5 F 54 L 20 147/81 H 96 04/07/18 07:37 04/07/18 07:37 04/07/18 07:37 04/07/18 07:37 04/07/18 07:37 Intake & Output 04/06/18 04/07/18 04/08/18 06:59 06:59 06:59 Intake Total 3624 922 Balance 3624 922 Weight 56.4 kg 55.6 kg General appearance: PRESENT: no acute distress, well-developed, well-nourished Head exam: PRESENT: atraumatic, normocephalic Eye exam: PRESENT: conjunctiva pink, EOMI, PERRLA. ABSENT: scleral icterus Ear exam: PRESENT: normal external ear exam Mouth exam: PRESENT: moist, tongue midline Neck exam: PRESENT: full ROM. ABSENT: carotid bruit, JVD, lymphadenopathy, thyromegaly Respiratory exam: PRESENT: clear to auscultation sendy Cardiovascular exam: PRESENT: RRR. ABSENT: diastolic murmur, rubs, systolic murmur Pulses: PRESENT: normal dorsalis pedis pul, +2 pedal pulses bilateral Vascular exam: PRESENT: normal capillary refill GI/Abdominal exam: PRESENT: normal bowel sounds, soft. ABSENT: distended, guarding, mass, organolmegaly, rebound, tenderness Rectal exam: PRESENT: deferred Extremities exam: ABSENT: pedal edema Neurological exam: PRESENT: alert, awake, oriented to person, oriented to place , oriented to time, oriented to situation, CN II-XII grossly intact. ABSENT: motor sensory deficit Psychiatric exam: PRESENT: appropriate affect, normal mood. ABSENT: homicidal ideation, suicidal ideation Skin exam: PRESENT: dry, intact, warm. ABSENT: cyanosis, rash Results Laboratory Results: 04/06/18 17:37 04/02/18 21:33 04/06/18 04/06/18 10:23 17:37 WBC 3.9 L RBC 3.01 L Hgb 9.4 L Hct 28.5 L MCV 95 MCH 31.3 MCHC 33.1 RDW 16.5 H Plt Count 71 L Seg Neutrophils % Not Reportable Lymphocytes % Not Reportable Monocytes % Not Reportable Eosinophils % Not Reportable Basophils % Not Reportable Absolute Neutrophils Not Reportable Absolute Lymphocytes Not Reportable Absolute Monocytes Not Reportable Absolute Eosinophils Not Reportable Absolute Basophils Not Reportable Blood Type B POSITIVE Antibody Screen NEGATIVE Impressions: Head CT 03/30/18 12:20 IMPRESSION: No acute intracranial findings. EVIDENCE OF ACUTE STROKE: NO. Lung Scan-VQ NM 03/30/18 14:40 IMPRESSION: Perfusion images show heterogeneous activity with multiple bilateral peripheral segmental defects. Chest CT 04/02/18 00:00 IMPRESSION: Bilateral pneumonia. Chest X-Ray 04/06/18 00:00 IMPRESSION: Right middle and lower lobe airspace disease worrisome for pneumonia Assessment & Plan - Diagnosis (1) Pseudomonal pneumonia Qualifiers: Laterality: unspecified laterality Lung location: unspecified part of lung Qualified Code(s): J15.1 - Pneumonia due to Pseudomonas Is this a current diagnosis for this admission?: Yes Plan: Continue IV antibiotic We will consult the pulmonary Check a chest x-ray and ABG (2) CKD (chronic kidney disease) stage 4, GFR 15-29 ml/min Is this a current diagnosis for this admission?: Yes (3) CLL (chronic lymphocytic leukemia) Is this a current diagnosis for this admission?: Yes Plan: pt currently seeing Dr. Barahona as outpatient (4) Chronic atrial fibrillation Is this a current diagnosis for this admission?: Yes Plan: Patient is currently on Eliquis Patient's platelet count is currently low I think we should hold the Eliquis at this point with the low platelet count and a low hemoglobin (5) Shortness of breath Is this a current diagnosis for this admission?: Yes Plan: Will get the ABG and a chest x-ray (6) Thrombocytopenia Is this a current diagnosis for this admission?: Yes Plan: Will continues to monitor the patient (7) Anemia Qualifiers: Anemia type: other cause Other causes of anemia: other cause, not classified Qualified Code(s): D64.89 - Other specified anemias Is this a current diagnosis for this admission?: Yes Plan: s/p Blood transfusion - Time Time Spent with patient: 15-24 minutes Medications reviewed and adjusted accordingly: Yes Anticipated discharge: Other Within: Other - Inpatient Certification Medical Necessity: Need for IV Antibiotics Post Hospital Care: D/C Cardiovascular Technologist Documentation - Plan Summary Plan Summary: Continues to current medication
[2018-04-07] MEDS: MONTELUKAST SODIUM 10 MG TABLET PO SCH (19:25)
[2018-04-07] MEDS: VALACYCLOVIR HCL 500 MG TABLET PO SCH (21:23)
[2018-04-08] MEDS: LANSOPRAZOLE 30 MG TAB.RAP.DR PO SCH (05:33)
[2018-04-08] MEDS: IMIPENEM/CILASTATIN SODIUM 500 MG in NORMAL SALINE 100 ML IV SCH ×2 (05:33→18:56)
[2018-04-08 05:34] LABS: HEMATOCRIT 29.7 % (36.0-47.0); HEMOGLOBIN 10.2 g/dL (12.0-15.5); MEAN CORPUSCULAR HEMOGLOBIN 32.1 pg (27.0-33.4); MEAN CORPUSCULAR HGB CONC 34.3 g/dL (32.0-36.0); MEAN CORPUSCULAR VOLUME 94 fl (80-97); RED BLOOD COUNT 3.17 10^6/uL (3.72-5.28); RED CELL DISTRIBUTION WIDTH 16.2 % (11.5-14.0); WHITE BLOOD COUNT 4.5 10^3/uL (4.0-10.5)
[2018-04-08 06:19] LABS: PLATELET COUNT 77 10^3/uL (150-450)
[2018-04-08] MEDS: SODIUM BICARBONATE 650 MG TABLET PO SCH ×2 (11:06→21:20)
[2018-04-08] MEDS: DOCUSATE SODIUM 100 MG CAPSULE PO SCH ×2 (11:06→18:56)
[2018-04-08] MEDS: METOPROLOL SUCCINATE 50 MG TAB.SR.24H PO SCH (11:07)
[2018-04-08] MEDS: GUAIFENESIN 600 MG TABLET.SA PO SCH ×2 (11:07→21:16)
[2018-04-08 18:32] LABS: ABSOLUTE EOSINOPHILS # (AUTO) 0.1 10^3/uL (0.0-0.6); ABSOLUTE LYMPHOCYTES (AUTO) 2.5 10^3/uL (0.5-4.7); ABSOLUTE MONOCYTES (AUTO) 0.2 10^3/uL (0.1-1.4); ABSOLUTE NEUT (AUTO) 2.3 10^3/uL (1.7-8.2); BASOPHILS % (AUTO) 0.9 % (0-2); EOSINOPHILS % (AUTO) 2.6 % (0-6); HEMATOCRIT 30.6 % (36.0-47.0); HEMOGLOBIN 10.5 g/dL (12.0-15.5); LYMPHOCYTES % (AUTO) 47.8 % (13-45); MEAN CORPUSCULAR HEMOGLOBIN 32.1 pg (27.0-33.4); MEAN CORPUSCULAR HGB CONC 34.3 g/dL (32.0-36.0); MEAN CORPUSCULAR VOLUME 94 fl (80-97); MONOCYTES % (AUTO) 4.5 % (3-13); RED BLOOD COUNT 3.26 10^6/uL (3.72-5.28); RED CELL DISTRIBUTION WIDTH 15.9 % (11.5-14.0); SEGMENTED NEUTROPHILS % (AUTO) 44.2 % (42-78); TOTAL CELLS COUNTED % (AUTO) 100 %; WHITE BLOOD COUNT 5.2 10^3/uL (4.0-10.5)
[2018-04-08 18:42] LABS: ALANINE AMINOTRANSFERASE 15 U/L (9-52); ALKALINE PHOSPHATASE 78 U/L (38-126); ANION GAP 7 (5-19); ASPARTATE AMINO TRANSFERASE 20 U/L (14-36); BILIRUBIN,DIRECT 0.5 mg/dL (0.0-0.4); BILIRUBIN,TOTAL 0.9 mg/dL (0.2-1.3); BLOOD UREA NITROGEN 33 mg/dL (7-20); CALCIUM 8.7 mg/dL (8.4-10.2); CARBON DIOXIDE 32 mmol/L (22-30); CHLORIDE 100 mmol/L (98-107); GLUCOSE 92 mg/dL (75-110); POTASSIUM 3.8 mmol/L (3.6-5.0); SODIUM 139.1 mmol/L (137-145); TOTAL PROTEIN 5.9 g/dL (6.3-8.2)
[2018-04-08 18:54] LABS: PLATELET COUNT 81 10^3/uL (150-450)
[2018-04-08] MEDS: MONTELUKAST SODIUM 10 MG TABLET PO SCH (18:56)
[2018-04-08] MEDS: ACETAMINOPHEN 325 MG TABLET PO PRN (18:56)
--- NOTE | 2018-04-08 20:28 | PDOC PROGRESS REPORT ---
Subjective Progress Note for:: 04/08/18 Subjective:: Patient was admitted for the management of severe gram-negative pneumonia, thrombocytopenia, due to heparin-induced thrombocytopenia . acute on chronic kidney injury.The utilization review management stated that patient insurance is denying the admission for this patient despite severe acute illness. She is immunocompromised, she has CLL on active chemotherapy, she presented with life- threatening gram-negative pneumonia associated with thrombocytopenia, anemia, today is the first day that patient will feel somewhat better, she was transfused over the weekend with packed red blood cells hopefully she be discharged home on Sunday morning. Reason For Visit: PROBABLE PULMONARY EMBOLISM,RIGHT LOWER LOBE Physical Exam Vital Signs: Temp Pulse Resp BP Pulse Ox 97.7 F 65 17 134/75 H 95 04/08/18 15:47 04/08/18 15:47 04/08/18 15:47 04/08/18 15:47 04/08/18 15:47 Intake & Output 04/07/18 04/08/18 04/09/18 06:59 06:59 06:59 Intake Total 922 714 700 Balance 922 714 700 Weight 55.6 kg 54.7 kg General appearance: PRESENT: no acute distress Eye exam: PRESENT: PERRLA Respiratory exam: PRESENT: clear to auscultation sendy Cardiovascular exam: PRESENT: +S1, +S2 GI/Abdominal exam: PRESENT: soft Neurological exam: PRESENT: alert Results Laboratory Results: 04/08/18 18:10 04/08/18 18:10 04/08/18 04/08/18 04/08/18 05:05 18:10 18:10 WBC 4.5 5.2 RBC 3.17 L 3.26 L Hgb 10.2 L 10.5 L Hct 29.7 L 30.6 L MCV 94 94 MCH 32.1 32.1 MCHC 34.3 34.3 RDW 16.2 H 15.9 H Plt Count 77 L 81 L Seg Neutrophils % 44.2 Lymphocytes % 47.8 H Monocytes % 4.5 Eosinophils % 2.6 Basophils % 0.9 Absolute Neutrophils 2.3 Absolute Lymphocytes 2.5 Absolute Monocytes 0.2 Absolute Eosinophils 0.1 Absolute Basophils 0.0 Sodium 139.1 Potassium 3.8 Chloride 100 Carbon Dioxide 32 H Anion Gap 7 BUN 33 H Creatinine 1.74 H Est GFR ( Amer) 35 L Est GFR (Non-Af Amer) 29 L Glucose 92 Calcium 8.7 Total Bilirubin 0.9 AST 20 ALT 15 Alkaline Phosphatase 78 Total Protein 5.9 L Albumin 3.0 L Impressions: Head CT 03/30/18 12:20 IMPRESSION: No acute intracranial findings. EVIDENCE OF ACUTE STROKE: NO. Lung Scan-VQ NM 03/30/18 14:40 IMPRESSION: Perfusion images show heterogeneous activity with multiple bilateral peripheral segmental defects. Chest CT 04/02/18 00:00 IMPRESSION: Bilateral pneumonia. Chest X-Ray 04/06/18 00:00 IMPRESSION: Right middle and lower lobe airspace disease worrisome for pneumonia Assessment & Plan - Diagnosis (1) Pneumonia Qualifiers: Pneumonia type: due to Pseudomonas Laterality: unspecified laterality Lung location: unspecified part of lung Qualified Code(s): J15.1 - Pneumonia due to Pseudomonas Is this a current diagnosis for this admission?: Yes (2) CLL (chronic lymphocytic leukemia) Is this a current diagnosis for this admission?: Yes (3) Thrombocytopenia Is this a current diagnosis for this admission?: Yes (4) Chronic atrial fibrillation Is this a current diagnosis for this admission?: Yes (5) Herpes genitalia Qualifiers: Herpes simplex infection site: vulvovaginitis Qualified Code(s): A60.04 - Herpesviral vulvovaginitis Is this a current diagnosis for this admission?: Yes (6) Pseudomonal pneumonia Qualifiers: Laterality: unspecified laterality Lung location: unspecified part of lung Qualified Code(s): J15.1 - Pneumonia due to Pseudomonas Is this a current diagnosis for this admission?: Yes (7) Citrobacter infection Is this a current diagnosis for this admission?: Yes (8) Constipation Qualifiers: Constipation type: unspecified constipation type Qualified Code(s): K59.00 - Constipation, unspecified Is this a current diagnosis for this admission?: Yes (9) Chronic kidney disease, stage 3 Is this a current diagnosis for this admission?: Yes (10) Acute kidney injury Is this a current diagnosis for this admission?: Yes (11) Heparin induced thrombocytopenia Is this a current diagnosis for this admission?: Yes
[2018-04-08] MEDS: VALACYCLOVIR HCL 500 MG TABLET PO SCH (21:16)
[2018-04-09] MEDS: LANSOPRAZOLE 30 MG TAB.RAP.DR PO SCH (06:00)
[2018-04-09] MEDS: IMIPENEM/CILASTATIN SODIUM 500 MG in NORMAL SALINE 100 ML IV SCH ×2 (06:00→17:28)
[2018-04-09] MEDS: SODIUM BICARBONATE 650 MG TABLET PO SCH ×2 (09:15→22:00)
[2018-04-09] MEDS: GUAIFENESIN 600 MG TABLET.SA PO SCH ×2 (09:16→22:00)
[2018-04-09] MEDS: METOPROLOL SUCCINATE 50 MG TAB.SR.24H PO SCH (09:16)
[2018-04-09] MEDS: DOCUSATE SODIUM 100 MG CAPSULE PO SCH ×2 (09:16→17:28)
[2018-04-09] MEDS: MONTELUKAST SODIUM 10 MG TABLET PO SCH (17:28)
--- NOTE | 2018-04-09 21:13 | PDOC DISCHARGE SUMMARY ---
General - Admit/Disc Date/PCP Admission Date/Primary Care Provider: 03/30/18 17:51 ERUM HENAO MD Discharge Date: 04/10/18 - Discharge Diagnosis (1) Pneumonia Is this a current diagnosis for this admission?: Yes (2) CLL (chronic lymphocytic leukemia) Is this a current diagnosis for this admission?: Yes (3) Thrombocytopenia Is this a current diagnosis for this admission?: Yes (4) Chronic atrial fibrillation Is this a current diagnosis for this admission?: Yes (5) Herpes genitalia Is this a current diagnosis for this admission?: Yes (6) Pseudomonal pneumonia Is this a current diagnosis for this admission?: Yes (7) Citrobacter infection Is this a current diagnosis for this admission?: Yes (8) Constipation Is this a current diagnosis for this admission?: Yes (9) Chronic kidney disease, stage 3 Is this a current diagnosis for this admission?: Yes (10) Acute kidney injury Is this a current diagnosis for this admission?: Yes (11) Heparin induced thrombocytopenia Is this a current diagnosis for this admission?: Yes - Additional Information Resuscitation Status: Full Code Prescriptions: Apixaban [Eliquis 2.5 mg Tablet] 2.5 mg PO BID #60 tablet Home Medications: Montelukast Sodium [Singulair 10 mg Tablet] 10 mg PO QPM 08/04/17 Metoprolol Succinate [Toprol Xl] 50 mg PO DAILY 02/23/18 Sodium Bicarbonate [Sodium Bicarbonate 650 mg Tablet] 650 mg PO Q12 #60 tablet 02/23/18 Ergocalciferol (Vitamin D2) [Drisdol 50,000 unit (1.25MG) Capsule] 1 cap PO MENDOZA@ 1000 PRN 03/30/18 Apixaban [Eliquis 2.5 mg Tablet] 2.5 mg PO BID #60 tablet 04/09/18 History of Present Illness History of Present Illness: JANET ABBOTT is a 72 year old female.She came to the emergency room for evaluation of shortness of breath, in the emergency room pulmonary embolism was suspected VQ scan was ordered, CTA could not be ordered because of the underlying acute on chronic kidney disease, there was perfusion defects on the VQ scan, it was intermediate probability for PE Hospital Course Hospital Course: The VQ scan that was done was intermediate probability for PE because of her history of CLL she was started on IV heparin. Pulmonary embolism was thought to be unlikely patient was on anticoagulant with Eliquis for atrial fibrillation. Patient developed heparin-induced thrombocytopenia The heparin was discontinued she was transitioned to Eliquis p.o. She has Pseudomonas and Citrobacter pneumonia, She was treated with IV imipenem that cover both organisms. She has persistent thrombocytopenia, she also have anemia requiring blood transfusion the thrombocytopenia and anemia is not felt to be due to microangiopathic hemolytic anemia She also have external genitalia ulcer ,due to herpes ,treated with valtrex. Hospital course was prolonged, she also have acute kidney injury partly from prerenal azotemia, she has underlining chronic kidney disease stage III Physical Exam Vital Signs: Temp Pulse Resp BP Pulse Ox 97.7 F 77 20 125/62 93 04/09/18 19:52 04/09/18 19:52 04/09/18 19:52 04/09/18 19:52 04/09/18 19:52 Intake & Output 04/08/18 04/09/18 04/10/18 06:59 06:59 06:59 Intake Total 714 1240 795 Balance 714 1240 795 Weight 54.7 kg 54 kg General appearance: PRESENT: no acute distress, well-developed, well-nourished Head exam: PRESENT: atraumatic, normocephalic Eye exam: PRESENT: PERRLA Ear exam: PRESENT: normal external ear exam Mouth exam: PRESENT: moist, tongue midline Neck exam: PRESENT: full ROM Respiratory exam: PRESENT: clear to auscultation sendy Cardiovascular exam: PRESENT: RRR, +S1, +S2 Pulses: PRESENT: normal dorsalis pedis pul, +2 pedal pulses bilateral Vascular exam: PRESENT: normal capillary refill GI/Abdominal exam: PRESENT: normal bowel sounds, soft Rectal exam: PRESENT: deferred Neurological exam: PRESENT: alert Psychiatric exam: PRESENT: appropriate affect, normal mood Skin exam: PRESENT: dry, intact, warm Results Laboratory Results: 04/08/18 18:10 04/08/18 18:10 Impressions: Head CT 03/30/18 12:20 IMPRESSION: No acute intracranial findings. EVIDENCE OF ACUTE STROKE: NO. Lung Scan-VQ NM 03/30/18 14:40 IMPRESSION: Perfusion images show heterogeneous activity with multiple bilateral peripheral segmental defects. Chest CT 04/02/18 00:00 IMPRESSION: Bilateral pneumonia. Chest X-Ray 04/06/18 00:00 IMPRESSION: Right middle and lower lobe airspace disease worrisome for pneumonia Qualifiers - * PATIENT BEING DISCHARGED WITH ANY OF THE FOLLOWING DIAGNOSIS: No
[2018-04-09] MEDS: VALACYCLOVIR HCL 500 MG TABLET PO SCH (22:00)
[2018-04-10 05:08] LABS: HEMATOCRIT 28.4 % (36.0-47.0); HEMOGLOBIN 9.6 g/dL (12.0-15.5); MEAN CORPUSCULAR HEMOGLOBIN 31.8 pg (27.0-33.4); MEAN CORPUSCULAR HGB CONC 33.8 g/dL (32.0-36.0); MEAN CORPUSCULAR VOLUME 94 fl (80-97); RED BLOOD COUNT 3.03 10^6/uL (3.72-5.28); RED CELL DISTRIBUTION WIDTH 15.1 % (11.5-14.0); WHITE BLOOD COUNT 5.4 10^3/uL (4.0-10.5)
[2018-04-10] MEDS: LANSOPRAZOLE 30 MG TAB.RAP.DR PO SCH (05:20)
[2018-04-10] MEDS: IMIPENEM/CILASTATIN SODIUM 500 MG in NORMAL SALINE 100 ML IV SCH (05:20)
[2018-04-10 05:31] LABS: PLATELET COUNT 73 10^3/uL (150-450)
[2018-04-10 09:44] VITALS: BP 153/80
[2018-04-10] MEDS: SODIUM BICARBONATE 650 MG TABLET PO SCH (09:48)
[2018-04-10] MEDS: METOPROLOL SUCCINATE 50 MG TAB.SR.24H PO SCH (09:49)
[2018-04-10] MEDS: GUAIFENESIN 600 MG TABLET.SA PO SCH (09:49)
== END 2018-04-10 10:36 | disposition home or self-care (01) | DRG 178 ==
LOC: ER 11:40 → EH 17:51 → 3S 20:00 → 3N 04-08 14:03
PROVIDERS: ADMIT Internal Medicine; ATTEND Internal Medicine
PROC: 30233N1 Transfusion of Nonautologous Red Blood Cells into Peripheral Vein, Percutaneous Approach (ICD-10-PCS; principal; 2018-04-06)
PROC: 3E0F73Z Introduction of Anti-inflammatory into Respiratory Tract, Via Natural or Artificial Opening (ICD-10-PCS; 2018-04-06)
DX: J15.1 Pneumonia due to Pseudomonas (principal); C91.10 Chronic lymphocytic leukemia of B-cell type not having achieved remission; N17.9 Acute kidney failure, unspecified; J44.0 Chronic obstructive pulmonary disease with (acute) lower respiratory infection; N18.4 Chronic kidney disease, stage 4 (severe); I48.2 Chronic atrial fibrillation; A60.04 Herpesviral vulvovaginitis; B96.89 Other specified bacterial agents as the cause of diseases classified elsewhere; K59.00 Constipation, unspecified; D75.82 Heparin induced thrombocytopenia (HIT); I12.9 Hypertensive chronic kidney disease with stage 1 through stage 4 chronic kidney disease, or unspecified chronic kidney disease; M19.90 Unspecified osteoarthritis, unspecified site; D64.89 Other specified anemias; Z86.14 Personal history of Methicillin resistant Staphylococcus aureus infection; Z79.899 Other long term (current) drug therapy; Z90.81 Acquired absence of spleen; Z82.49 Family history of ischemic heart disease and other diseases of the circulatory system
CPT/HCPCS: 36415; 36430; 36600; 70450; 71045; 71046; 71250; 78582; 80053; 81001; 82550; 82553; 82803; 82962; 83880; 84484; 85025; 85027; 85610; 85730; 86022; 86850; 86900; 86901; 86920; 87070; 87077; 87186; 87205; 87529; 93005; 93010; 94640; 96360; 96361; 99291; A9540; A9567; J0456; J0696; J0743; J1644; J1940; J3490; J7030; J7060; J7620; P9016; Q9969

== ENCOUNTER → 2018-04-23 | Outpatient (CLI) | payer MEDICARE, MEDICAID ==
[2018-04-23 09:17] LABS: ALANINE AMINOTRANSFERASE 12 U/L (9-52); ALBUMIN 3.5 g/dL (3.5-5.0); ALKALINE PHOSPHATASE 93 U/L (38-126); ANION GAP 13 (5-19); ASPARTATE AMINO TRANSFERASE 21 U/L (14-36); BILIRUBIN,DIRECT 0.3 mg/dL (0.0-0.4); BILIRUBIN,TOTAL 0.7 mg/dL (0.2-1.3); BLOOD UREA NITROGEN 32 mg/dL (7-20); CARBON DIOXIDE 33 mmol/L (22-30); CHLORIDE 102 mmol/L (98-107); GLUCOSE 107 mg/dL (75-110); IRON(TIBC) 185.5 ug/dL (37-170); POTASSIUM 3.8 mmol/L (3.6-5.0); SODIUM 147.9 mmol/L (137-145); TOTAL PROTEIN 6.8 g/dL (6.3-8.2); URIC ACID 11.6 mg/dL (2.5-7.5)
[2018-04-23 09:22] LABS: APPEARANCE,URINE CLEAR; BILIRUBIN,URINE NEGATIVE (NEGATIVE); COLOR,URINE COLORLESS; GLUCOSE, URINE NEGATIVE (NEGATIVE); KETONES,URINE NEGATIVE (NEGATIVE); LEUKOCYTE ESTERASE,URINE NEGATIVE (NEGATIVE); NITRITE,URINE NEGATIVE (NEGATIVE); PROTEIN,URINE NEGATIVE (NEGATIVE); URINE SPECIFIC GRAVITY 1.005; UROBILINOGEN,URINE NEGATIVE mg/dL (<2.0)
[2018-04-23 09:40] LABS: UR PRO/CREAT RATIO RESULT 0.8 mg/mg (0.0-0.2); URINE CREATININE 29.9 mg/dL (15-278); URINE PROTEIN 25.2 mg/dL (<12)
[2018-04-23 09:52] LABS: FREE T4 (FREE THYROXINE) 1.26 ng/dL (0.78-2.19)
[2018-04-23 09:59] LABS: HEMATOCRIT 31.9 % (36.0-47.0); HEMOGLOBIN 10.9 g/dL (12.0-15.5); MEAN CORPUSCULAR HEMOGLOBIN 33.3 pg (27.0-33.4); MEAN CORPUSCULAR HGB CONC 34.2 g/dL (32.0-36.0); MEAN CORPUSCULAR VOLUME 97 fl (80-97); PLATELET COUNT 164 10^3/uL (150-450); RED BLOOD COUNT 3.28 10^6/uL (3.72-5.28); WHITE BLOOD COUNT 12.7 10^3/uL (4.0-10.5)
[2018-04-23 10:05] LABS: THYROID STIMULATING HORMONE 2.14 uIU/mL (0.47-4.68)
[2018-04-23 10:08] LABS: ABSOLUTE LYMPHOCYTES# (MANUAL) 7.1 10^3/uL (0.5-4.7); ABSOLUTE MONOCYTES # (MANUAL) 0.6 10^3/uL (0.1-1.4); ABSOLUTE NEUTROPHILS# (MANUAL) 4.2 10^3/uL (1.7-8.2); BAND NEUTROPHILS % (MANUAL) 1 % (3-5); BASOPHILS % (MANUAL) 1 % (0-2); EOSINOPHILS % (MANUAL) 5 % (0-6); LYMPHOCYTES % (MANUAL) 56 % (13-45); MONOCYTES % (MANUAL) 5 % (3-13); NUCLEATED RED BLOOD CELLS 2 /100 WBC (0); SEGMENTED NEUTROPHILS % (MAN) 32 % (42-78); TOTAL CELLS COUNTED 100
[2018-04-23 10:09] LABS: ANISOCYTOSIS 2+; OVALOCYTES 1+; PLATELET COMMENT ADEQUATE; POIKILOCYTOSIS 1+; TARGET CELLS 1+
== END ==
LOC: OD 08:02
PROVIDERS: ATTEND Internal Medicine
DX: I12.9 Hypertensive chronic kidney disease with stage 1 through stage 4 chronic kidney disease, or unspecified chronic kidney disease (principal); N18.3 Chronic kidney disease, stage 3 (moderate)
CPT/HCPCS: 36415; 80053; 81001; 82306; 82570; 82728; 83540; 83550; 83970; 84156; 84439; 84443; 84550; 85025

== ENCOUNTER 2018-05-10 11:57 | Inpatient (IN) | payer MEDICARE, MEDICAID ==
[2018-05-10] MEDS ORDERED: IPRATROPIUM/ALBUTEROL 0.5-2.5 MG/3 ML AMPUL NEB ONE (13:00)
[2018-05-10] MEDS ORDERED: FENTANYL CITRATE INJ/PF 100 MCG/2 ML AMPUL IV ONE (13:00)
--- NOTE | 2018-05-10 13:02 | ER Document Report ---
ED General - General Chief Complaint: Knee Pain Stated Complaint: COUGHING UP BLOOD, LEG/KNEE PAIN Time Seen by Provider: 05/10/18 12:27 Mode of Arrival: Ambulatory Information source: Patient Notes: 72-year-old female with lymphoma, hypertension, atrial fibrillation, COPD, sarcoid presents with complaint of right knee pain and coughing up blood. Patient states that she has been coughing for approximately 6 weeks. She states that yesterday she began coughing up blood-streaked sputum. Patient has had associated shortness of breath. She reports an admission in February for pneumonia. Patient's sister is at the bedside and states that 3 days ago patient had a near syncopal episode while at [employer]. She was evaluated by EMS and urged to come to the emergency room but decided not to. Her right knee has been hurting her for approximately 3 days. She describes it as a throbbing aching pain. She denies any injury, fall. Patient is currently undergoing chemotherapy with Dr. Barahona. Her last treatment was April 18. TRAVEL OUTSIDE OF THE [place] IN LAST 30 DAYS: No - HPI Onset: Other Onset/Duration: Persistent Quality of pain: Achy, Throbbing Severity: Moderate Pain Level: 2 Associated symptoms: Body/muscle aches, Chest pain - With coughing only, Productive cough, Hurts to breath, Shortness of breath. denies: Fever, Leg swelling Exacerbated by: Movement, Walking Relieved by: Denies Similar symptoms previously: Yes Recently seen / treated by doctor: Yes - Related Data Allergies/Adverse Reactions: No Known Allergies Allergy (Verified 05/10/18 19:31) Past Medical History - General Information source: Patient, Relative, [facility] Records - Social History Smoking Status: Never Smoker Frequency of alcohol use: None Drug Abuse: None Lives with: Family Family History: None, Hypertension Patient has suicidal ideation: No Patient has homicidal ideation: No - Past Medical History Cardiac Medical History: Reports: Hx Atrial Fibrillation - paroxysmal type, Hx Hypertension Denies: Hx Heart Attack Pulmonary Medical History: Reports: Hx Bronchitis, Hx COPD, Hx Pneumonia Denies: Hx Asthma, Hx Tuberculosis Neurological Medical History: Denies: Hx Cerebrovascular Accident, Hx Seizures Renal/ Medical History: Denies: Hx Peritoneal Dialysis Malignancy Medical History: Reports: Hx Leukemia - chronic lymphocytic leukemia Musculoskeletal Medical History: Reports Hx Arthritis - osteoarthritis Psychiatric Medical History: Denies: Hx Depression Infectious Medical History: Reports: Hx MRSA Past Surgical History: Reports: Hx Abdominal Surgery - spleenectomy. Denies: Hx Bowel Surgery - Immunizations Hx Diphtheria, Pertussis, Tetanus Vaccination: Yes Hx Pneumococcal Vaccination: 08/18/11 Review of Systems - Review of Systems Constitutional: Chills, Malaise, Weakness, Recent illness. denies: Fever EENT: denies: Blurred vision, Nose congestion, Difficulty swallowing Cardiovascular: Dyspnea, Other - Near syncope Respiratory: Cough, Hemoptysis, Short of breath Gastrointestinal: Poor appetite, Poor fluid intake. denies: Abdominal pain Genitourinary: denies: Dysuria, Flank pain Female Genitourinary: No symptoms reported Musculoskeletal: Joint pain. denies: Leg swelling Skin: denies: Rash Hematologic/Lymphatic: denies: Swollen glands Neurological/Psychological: Weakness. denies: Confusion, Seizure -: Yes All other systems reviewed and negative Physical Exam - Vital signs Vitals: Temp Pulse Resp BP Pulse Ox 98.2 F 109 H 24 H 103/59 L 85 L 05/10/18 12:08 05/10/18 12:08 05/10/18 12:08 05/10/18 12:08 05/10/18 12:08 Interpretation: Tachycardic, Hypoxic, Tachypneic - Notes Notes: PHYSICAL EXAMINATION: GENERAL: Cachectic, ill-appearing, persistent cough. HEAD: Atraumatic, normocephalic. EYES: Pupils equal round and reactive to light, extraocular movements intact, conjunctiva are normal. ENT: Nares patent, oropharynx clear without exudates. dry mucous membranes. NECK: Normal range of motion, positive cervical lymphadenopathy LUNGS: Diminished breath sounds in all lung mcguire. Persistent coughing. Blood -streaked sputum. Tachypneic. No accessory muscle use. HEART: Tachycardic, regular rhythm. ABDOMEN: Soft, nontender, nondistended abdomen. No guarding, no rebound. No masses appreciated. Female : deferred Musculoskeletal: Normal range of motion, no pitting or edema. No cyanosis. Right knee-pain with range of motion. No obvious deformity, effusion, erythema. NEUROLOGICAL: Cranial nerves grossly intact. Normal speech, normal gait. Normal sensory, motor exams PSYCH: Normal mood, normal affect. SKIN: Warm, Dry, normal turgor, no rashes or lesions noted. Course - Re-evaluation Re-evalutation: Laboratory 05/10/18 05/10/18 05/10/18 12:32 12:32 12:32 WBC 5.9 RBC 3.00 L Hgb 10.1 L Hct 29.8 L MCV 99 H MCH 33.6 H MCHC 33.8 RDW 18.6 H Plt Count 194 Total Counted 100 Seg Neutrophils % Not Reportable Seg Neuts % (Manual) 26 L Band Neutrophils % 6 H Lymphocytes % Not Reportable Lymphocytes % (Manual) 61 H Atypical Lymphs % 1 Monocytes % Not Reportable Monocytes % (Manual) 4 Eosinophils % Not Reportable Eosinophils % (Manual) 2 Basophils % Not Reportable Basophils % (Manual) 0 Absolute Neutrophils Not Reportable Abs Neuts (Manual) 1.9 Absolute Lymphocytes Not Reportable Abs Lymphs (Manual) 3.7 Absolute Monocytes Not Reportable Abs Monocytes (Manual) 0.2 Absolute Eosinophils Not Reportable Absolute Eos (Manual) 0.1 Absolute Basophils Not Reportable Abs Basophils (Manual) 0.0 Nucleated RBCs 1 Hypersegmented Neuts PRESENT Toxic Granulation 1+ Toxic Vacuolation PRESENT Platelet Comment ADEQUATE Polychromasia SLIGHT Hypochromasia SLIGHT Anisocytosis 2+ Rouleaux SLIGHT PT 14.6 INR 1.08 VBG pH VBG pCO2 VBG HCO3 VBG Base Excess Sodium 138.0 Potassium 4.2 Chloride 98 Carbon Dioxide 24 Anion Gap 16 BUN 66 H Creatinine 3.17 H Est GFR ( Amer) 18 L Est GFR (Non-Af Amer) 14 L Glucose 102 Lactic Acid Calcium 8.8 Total Bilirubin 1.8 H Direct Bilirubin 1.0 H Neonat Total Bilirubin Not Reportable Neonat Direct Bilirubin Not Reportable Neonat Indirect Bili Not Reportable AST 37 H ALT 7 L Alkaline Phosphatase 93 Troponin I Total Protein 7.7 Albumin 4.0 05/10/18 05/10/18 05/10/18 12:32 13:14 13:14 WBC RBC Hgb Hct MCV MCH MCHC RDW Plt Count Total Counted Seg Neutrophils % Seg Neuts % (Manual) Band Neutrophils % Lymphocytes % Lymphocytes % (Manual) Atypical Lymphs % Monocytes % Monocytes % (Manual) Eosinophils % Eosinophils % (Manual) Basophils % Basophils % (Manual) Absolute Neutrophils Abs Neuts (Manual) Absolute Lymphocytes Abs Lymphs (Manual) Absolute Monocytes Abs Monocytes (Manual) Absolute Eosinophils Absolute Eos (Manual) Absolute Basophils Abs Basophils (Manual) Nucleated RBCs Hypersegmented Neuts Toxic Granulation Toxic Vacuolation Platelet Comment Polychromasia Hypochromasia Anisocytosis Rouleaux PT INR VBG pH 7.29 L VBG pCO2 48.0 VBG HCO3 22.8 VBG Base Excess -4.0 Sodium Potassium Chloride Carbon Dioxide Anion Gap BUN Creatinine Est GFR ( Amer) Est GFR (Non-Af Amer) Glucose Lactic Acid 1.1 Calcium Total Bilirubin Direct Bilirubin Neonat Total Bilirubin Neonat Direct Bilirubin Neonat Indirect Bili AST ALT Alkaline Phosphatase Troponin I < 0.012 Total Protein Albumin Chest X-Ray 05/10/18 13:00 IMPRESSION: Interval decrease in infiltrate within the right middle and right lower lobes. Interval decreased right pleural thickening or effusion. Chronic bilateral interstitial changes. Knee X-Ray 05/10/18 13:01 IMPRESSION: 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 Chest CT 05/10/18 15:25 IMPRESSION: Right middle lobe and lower lobe pneumonia associated with bronchiectasis. This appears more extensive than on the earlier CT. Limited bronchiectasis in the lingula. Cannot exclude a limited pneumonia in the lingula. Lung Scan-VQ NM 05/10/18 15:25 IMPRESSION: For activity on ventilation and perfusion at the right lung base correlates with dense consolidation in the right middle and lower lobe on CT chest 05/10/2018. This is a triple match and is low probability for pulmonary embolus on PIOPED criteria. 72-year-old female with lymphoma, hypertension, atrial fibrillation, COPD, sarcoid presents with complaint of right knee pain and coughing up blood. Patient states that she has been coughing for approximately 6 weeks. She states that yesterday she began coughing up blood-streaked sputum. Patient has had associated shortness of breath. She reports an admission in February for pneumonia. Patient's sister is at the bedside and states that 3 days ago patient had a near syncopal episode while at [employer]. She was evaluated by EMS and urged to come to the emergency room but decided not to. Her right knee has been hurting her for approximately 3 days. She describes it as a throbbing aching pain. She denies any injury, fall. Patient is currently undergoing chemotherapy with Dr. Barahona. Her last treatment was April 18. CBC shows a bandemia, stable anemia which is the patient's baseline. Patient was given imipenem after reviewing her sputum cultures from her previous admission. X-ray of the knee was obtained due to pain and showed degenerative arthritis. She did receive fentanyl for this and reports improvement of pain. CT of the chest was obtained and did show a right middle and lower pneumonia with bronchiectasis. This appears more extensive than previous CT. VQ scan was obtained and showed low probability for PE. Patient will be admitted to the ICU. 05/10/18 15:[address] Chacko who is covering for Dr. Tristan. He recommends CT of the chest without and repeat VQ scan. Patient will be admitted to the ICU. 05/10/18 20:05 05/10/18 20:06 05/10/18 20:09 - Vital Signs Vital signs: Temp Pulse Resp BP Pulse Ox 101.9 F H 118 H 20 122/64 91 L 05/10/18 18:45 05/10/18 18:45 05/10/18 18:45 05/10/18 18:45 05/10/18 18:45 - Laboratory Result Diagrams: 05/10/18 12:32 05/10/18 12:32 Laboratory results interpreted by me: 05/10/18 05/10/18 05/10/18 12:32 12:32 13:14 RBC 3.00 L Hgb 10.1 L Hct 29.8 L MCV 99 H MCH 33.6 H RDW 18.6 H Seg Neuts % (Manual) 26 L Band Neutrophils % 6 H Lymphocytes % (Manual) 61 H VBG pH 7.29 L BUN 66 H Creatinine 3.17 H Est GFR ( Amer) 18 L Est GFR (Non-Af Amer) 14 L Total Bilirubin 1.8 H Direct Bilirubin 1.0 H AST 37 H ALT 7 L - Diagnostic Test Radiology reviewed: Image reviewed, Reports reviewed Critical Care Note - Critical Care Note Total time excluding time spent on procedures (mins): 30 - Minutes of critical care time spent in direct contact evaluating and reevaluating the patient, treating symptoms, reviewing labs and studies and speaking with family and consultants excluding any procedures Discharge - Discharge Clinical Impression: Bandemia, Acute kidney injury, Hemoptysis, Tachycardia, Weakness, Chronic atrial fibrillation, Hypoxia Pneumonia Qualifiers: Pneumonia type: due to unspecified organism Laterality: right Lung location: lower lobe of lung Qualified Code(s): J18.1 - Lobar pneumonia, unspecified organism Anemia Qualifiers: Anemia type: unspecified type Qualified Code(s): D64.9 - Anemia, unspecified Fever Qualifiers: Fever type: unspecified Qualified Code(s): R50.9 - Fever, unspecified Lymphoma Qualifiers: Lymphoma type: unspecified type Lymphoma site: unspecified region Qualified Code(s): C85.90 - Non-Hodgkin lymphoma, unspecified, unspecified site Bronchiectasis Qualifiers: Bronchiectasis type: with acute exacerbation Qualified Code(s): J47.1 - Bronchiectasis with (acute) exacerbation Condition: Fair Disposition: ADMITTED INPATIENT Admitting Provider: [facility] Unit Admitted: ICU
[2018-05-10] MEDS ORDERED: RINGERS SOLUTION,LACTATED 1,000 ML IV ONE (13:03)
[2018-05-10 13:20] LABS: HEMATOCRIT 29.8 % (36.0-47.0); HEMOGLOBIN 10.1 g/dL (12.0-15.5); MEAN CORPUSCULAR HEMOGLOBIN 33.6 pg (27.0-33.4); MEAN CORPUSCULAR HGB CONC 33.8 g/dL (32.0-36.0); MEAN CORPUSCULAR VOLUME 99 fl (80-97); PLATELET COUNT 194 10^3/uL (150-450); RED CELL DISTRIBUTION WIDTH 18.6 % (11.5-14.0); WHITE BLOOD COUNT 5.9 10^3/uL (4.0-10.5)
[2018-05-10 13:34] LABS: INTERNATIONAL RATION (INR) 1.08; PROTHROMBIN TIME 14.6 SEC (11.4-15.4)
[2018-05-10 13:37] LABS: VENOUS BLOOD HCO3 22.8 mmol/L (20-32); VENOUS BLOOD PH 7.29 (7.30-7.42)
[2018-05-10 13:41] LABS: ALANINE AMINOTRANSFERASE 7 U/L (9-52); ALKALINE PHOSPHATASE 93 U/L (38-126); ANION GAP 16 (5-19); ASPARTATE AMINO TRANSFERASE 37 U/L (14-36); BILIRUBIN,TOTAL 1.8 mg/dL (0.2-1.3); BLOOD UREA NITROGEN 66 mg/dL (7-20); CALCIUM 8.8 mg/dL (8.4-10.2); CARBON DIOXIDE 24 mmol/L (22-30); CHLORIDE 98 mmol/L (98-107); GLUCOSE 102 mg/dL (75-110); POTASSIUM 4.2 mmol/L (3.6-5.0); TOTAL PROTEIN 7.7 g/dL (6.3-8.2)
[2018-05-10 13:55] LABS: ABSOLUTE LYMPHOCYTES# (MANUAL) 3.7 10^3/uL (0.5-4.7); ABSOLUTE MONOCYTES # (MANUAL) 0.2 10^3/uL (0.1-1.4); ABSOLUTE NEUTROPHILS# (MANUAL) 1.9 10^3/uL (1.7-8.2); BAND NEUTROPHILS % (MANUAL) 6 % (3-5); BASOPHILS % (MANUAL) 0 % (0-2); EOSINOPHILS % (MANUAL) 2 % (0-6); LYMPHOCYTES % (MANUAL) 61 % (13-45); MONOCYTES % (MANUAL) 4 % (3-13); NUCLEATED RED BLOOD CELLS 1 /100 WBC (0); SEGMENTED NEUTROPHILS % (MAN) 26 % (42-78); TOTAL CELLS COUNTED 100
[2018-05-10 13:56] LABS: HYPERSEGMENTED NEUTROPHILS PRESENT
[2018-05-10 13:57] LABS: ANISOCYTOSIS 2+; HYPOCHROMASIA SLIGHT; PLATELET COMMENT ADEQUATE; POLYCHROMASIA SLIGHT; ROULEAUX SLIGHT; TOXIC GRANULATION 1+; TOXIC VACUOLATION PRESENT
--- NOTE | 2018-05-10 14:45 | RADIOLOGY REPORT (SQ) ---
EXAM DESCRIPTION: CHEST 2 VIEWS COMPLETED DATE/TIME: 05/10/2018 2:29 pm REASON FOR STUDY: Coughing up blood COMPARISON: 04/06/2018. EXAM PARAMETERS: NUMBER OF VIEWS: two views TECHNIQUE: Digital Frontal and Lateral radiographic views of the chest acquired. RADIATION DOSE: NA LIMITATIONS: none FINDINGS: LUNGS AND PLEURA: There is interval decrease in infiltrate previously noted at the right l colleen base within the right middle and right lower lobes since the previous study. Interval decrease i n right pleural thickening or effusion. Chronic bilateral interstitial changes. MEDIASTINUM AND HILAR STRUCTURES: No masses or contour abnormalities. HEART AND VASCULAR STRUCTURES: The heart is normal with aortic atherosclerosis. Pulmonary vasculatur e is normal. . BONES: No acute findings. HARDWARE: Port-A-Cath tip overlying SVC. OTHER: Surgical clips left upper quadrant. IMPRESSION: Interval decrease in infiltrate within the right middle and right lower lobes. Interval decreased right pleural thickening or effusion. Chronic bilateral interstitial changes. TECHNICAL DOCUMENTATION: JOB ID: [id number] [id number] 2010 [employer]- All Rights Reserved Reading location - IP/workstation name: [email or web address]
--- NOTE | 2018-05-10 14:49 | RADIOLOGY REPORT (SQ) ---
EXAM DESCRIPTION: KNEE RIGHT 4 VIEWS COMPLETED DATE/TIME: 05/10/2018 2:30 pm REASON FOR STUDY: pain COMPARISON: None 03/07/2010. NUMBER OF VIEWS: Four views. TECHNIQUE: AP, lateral, and both oblique radiographic images acquired of the right knee. LIMITATIONS: None. FINDINGS: MINERALIZATION: Normal. BONES: There is tricompartment degenerative arthritis with interval progressive narrowing of the medi al right knee joint. JOINT: No effusion. SOFT TISSUES: No soft tissue swelling. No radio-opaque foreign body. OTHER: No other significant finding. IMPRESSION: 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 TECHNICAL DOCUMENTATION: JOB ID: [id number] 2010 [employer]- All Rights Reserved Reading location - IP/workstation name: [email or web address]
[2018-05-10] MEDS ORDERED: IMIPENEM/CILASTATIN SODIUM INJ 500 MG VIAL IV ONE (15:18)
--- NOTE | 2018-05-10 16:44 | RADIOLOGY REPORT (SQ) ---
EXAM DESCRIPTION: CT CHEST WITHOUT COMPLETED DATE/TIME: 05/10/2018 4:17 pm REASON FOR STUDY: Hemoptysis COMPARISON: 04/03/2018 TECHNIQUE: CT scan performed of the chest without intravenous contrast. Images reviewed with lung, soft tissue and bone windows. Reconstructed coronal and sagittal MPR images reviewed. All images st ored on PACS. All CT scanners at this facility use dose modulation, iterative reconstruction, and/or weight based d osing when appropriate to reduce radiation dose to as low as reasonably achievable (ALARA). [facility]: Dose Right [facility]: CareDose [facility]: Dose Right [facility]: Teradose 4D [facility]: [employer] RADIATION DOSE: CT Rad equipment meets quality standard of care and radiation dose reduction techniq ues were employed. CTDIvol: 4.3 mGy. DLP: 157 mGy-cm. mGy. LIMITATIONS: No technical limitations. FINDINGS: LUNGS AND PLEURA: Bronchiectasis in the right middle lobe and lower lobe and to a mild deg ree the lingula. There is considerable associated opacification, especially on the right side. HILAR AND MEDIASTINAL STRUCTURES: No identified masses or abnormal nodes. No obvious aneurysm. HEART AND VASCULAR STRUCTURES: No aneurysm. No pericardial effusion. UPPER ABDOMEN: No significant findings. Limited exam. THYROID AND OTHER SOFT TISSUES: No masses. No adenopathy. BONES: No significant finding. HARDWARE: None in the chest. OTHER: No other significant findings. IMPRESSION: Right middle lobe and lower lobe pneumonia associated with bronchiectasis. This appears more extensive than on the earlier CT. Limited bronchiectasis in the lingula. Cannot exclude a rg ited pneumonia in the lingula. TECHNICAL DOCUMENTATION: JOB ID: [id number] Quality ID # [id number]: Final reports with documentation of one or more dose reduction techniques (e.g., Au tomated exposure control, adjustment of the mA and/or kV according to patient size, use of iterative reconstruction technique) 2010 [employer]- All Rights Reserved Reading location - IP/workstation name: [email or web address]
[2018-05-10] MEDS ORDERED: NORMAL SALINE 1000 ML 1,000 ML IV PRN (16:46)
[2018-05-10] MEDS ORDERED: APIXABAN 2.5 MG TABLET PO SCH (18:00)
--- NOTE | 2018-05-10 18:02 | RADIOLOGY REPORT (SQ) ---
EXAM DESCRIPTION: NM LUNG VENT/PERF SCAN COMPLETED DATE/TIME: 05/10/2018 5:28 pm REASON FOR STUDY: Hemoptysis COMPARISON: Chest films 04/06/2018, 05/10/2018 CT chest 04/03/2018, 05/10/2018 RADIONUCLIDE AND DOSE: 5.4 millicuries TC-99m MAA Intravenous 32 millicuries TC-99m DTPA Inhaled aerosol TECHNIQUE: Eight views of the lungs acquired post ventilation of DTPA aerosol. Eight matching views of the lungs acquired following injection of MAA. LIMITATIONS: None. FINDINGS: VENTILATION: Very limited study. There is poor ventilation at the right lung base PERFUSION: There is poor perfusion at the right lung base. Nonsegmental defects in the left lung. OTHER: No other significant finding. IMPRESSION: For activity on ventilation and perfusion at the right lung base correlates with dense c onsolidation in the right middle and lower lobe on CT chest 05/10/2018. This is a triple match and i s low probability for pulmonary embolus on PIOPED criteria. TECHNICAL DOCUMENTATION: JOB ID: [id number] [employer]- All Rights Reserved Reading location - IP/workstation name: [email or web address]
[2018-05-10] MEDS: ACETAMINOPHEN 325 MG TABLET PO PRN (18:51)
[2018-05-10] MEDS: MONTELUKAST SODIUM 10 MG TABLET PO SCH (18:52)
[2018-05-10] MEDS: NORMAL SALINE 1000 ML 1,000 ML IV PRN (18:55)
--- NOTE | 2018-05-10 19:14 | EKG REPORT ---
SEVERITY:- ABNORMAL ECG - SINUS RHYTHM CONSIDER LEFT VENTRICULAR HYPERTROPHY : Confirmed by: Angie Hannon MD 10-May-2018 19:14:07
[2018-05-10] MEDS: IPRATROPIUM/ALBUTEROL 0.5-2.5 MG/3 ML AMPUL NEB SCH (19:58)
[2018-05-10] MEDS ORDERED: CEFEPIME 2 GM/D5W RTU 2 GM/50 ML RTUPB IV ONE (22:21)
--- NOTE | 2018-05-10 22:37 | HISTORY AND PHYSICAL E ---
History and Physical NAME: JANET ABBOTT : 1945 AGE: 72Y ADMITTED: 05/10/2018 ROOM: 331 CHIEF COMPLAINT: Coughing up blood and knee pain. HISTORY OF PRESENT ILLNESS: This is a 72-year-old female with a history of CLL, hypertension, atrial fibrillation and COPD, who presents with a complaint of right knee pain and coughing up blood. Patient stated that she has been coughing for approximately 6 weeks. She stated that yesterday, she began to cough with some blood-streaked sputum. Patient denies any shortness of breath. She reports an admission in February for pneumonia. Patient also with some questionable pulmonary embolism, but the VQ scan was intermediate. Patient also sees Dr. Barahona for CLL. Patient currently on chemotherapy. Patient stated that 3 days ago, she had a near-syncopal episode while in [employer], shopping. She was evaluated by EMS and urged to come to the emergency department, but decided not to. Her right knee has been hurting for approximately 3 days. She describes it as a throbbing, aching pain. She denies any injury. Patient is currently undergoing chemotherapy. Her last treatment was April 18. Patient's initial workup with CT of the chest showed pneumonia, and then decided for admission. Patient's white count is normal, but patient's bands are 6. Patient, other than that, denied any other symptoms. PAST MEDICAL HISTORY: 1. History of atrial fibrillation. 2. History of hypertension. 3. History of heart attack. 4. History of bronchitis. 5. History of COPD. 6. History of pneumonia. 7. History of cerebrovascular accident. 8. History of chronic lymphocytic leukemia, currently seeing Dr. Barahona. PAST SURGICAL HISTORY: 1. History of abdominal surgery. 2. Splenectomy. REVIEW OF SYSTEMS: As above. All other pertinent systems negative. ALLERGIES: No known drug allergies. CURRENT MEDICATIONS: 1. Tylenol p.r.n. 2. Singulair 10 mg daily. 3. Metoprolol 50 mg daily. 4. Eliquis 2.5 mg twice daily. 5. Vitamin D daily. 6. Sodium bicarb 650 mg p.o. twice daily. PHYSICAL EXAMINATION: VITAL SIGNS: Temperature is 98.2, pulse is 97, blood pressure is 102/61, respirations are 25, O2 is 99% on 2 liters nasal cannula. GENERAL: Patient is alert, awake, oriented x3. There is no acute distress. HEAD AND NECK: Normocephalic. DESTINY. LUNGS: No wheezing, no rales. Decreased breath sounds bilaterally. HEART: S1, S2 are present. ABDOMEN: Soft. Bowel sounds present. EXTREMITIES: No edema. NEUROLOGIC: Patient is moving all 4 extremities. No focal weakness. DIAGNOSTIC VALUES: WBC is 5.9, hemoglobin is 10.1, bands are 6, platelets are 194,000. Sodium is 138, potassium is 4.2, BUN is 66, creatinine is 3.17. Patient's chest CT scan shows the patient's right middle lobe and lower lobe pneumonia, consistent with bronchiectasis, more extensive than on earlier CT scans. ASSESSMENT AND PLAN: 1. Right lobe pneumonia. 2. Hemoptysis, most likely due to the above conditions. 3. History of pulmonary embolism, currently on Eliquis. 4. Acute renal failure on chronic kidney disease. 5. Hypertension. 6. Chronic lymphocytic leukemia. PLAN: Admit the patient to IMCU. Start the patient on IV cefepime and Levaquin, IV fluids, and continue to monitor the patient. Consult Pulmonary for further evaluation. Patient is currently hemodynamically stable. See the MD orders. DICTATING PHYSICIAN: YONY JEFF M.D. [id number] [facility]#: [id number] ID: [id number] JOB#: [id number] ACCT: [id number] cc:YONY JEFF M.D. >
[2018-05-10] MEDS: CEFEPIME 2 GM/D5W RTU 2 GM/50 ML RTUPB IV SCH (23:17)
[2018-05-10] MEDS: SODIUM BICARBONATE 650 MG TABLET PO SCH (23:17)
[2018-05-11] MEDS: IPRATROPIUM/ALBUTEROL 0.5-2.5 MG/3 ML AMPUL NEB SCH ×6 (04:09→20:18)
[2018-05-11 05:00] LABS: HEMOGLOBIN 8.8 g/dL (12.0-15.5); MEAN CORPUSCULAR HEMOGLOBIN 33.4 pg (27.0-33.4); MEAN CORPUSCULAR HGB CONC 33.8 g/dL (32.0-36.0); MEAN CORPUSCULAR VOLUME 99 fl (80-97); PLATELET COUNT 157 10^3/uL (150-450); RED BLOOD COUNT 2.63 10^6/uL (3.72-5.28); RED CELL DISTRIBUTION WIDTH 18.6 % (11.5-14.0); WHITE BLOOD COUNT 5.8 10^3/uL (4.0-10.5)
[2018-05-11 05:29] LABS: ABSOLUTE NEUTROPHILS# (MANUAL) 1.8 10^3/uL (1.7-8.2); BAND NEUTROPHILS % (MANUAL) 6 % (3-5); BASOPHILS % (MANUAL) 0 % (0-2); EOSINOPHILS % (MANUAL) 0 % (0-6); MONOCYTES % (MANUAL) 0 % (3-13); SEGMENTED NEUTROPHILS % (MAN) 25 % (42-78); TOTAL CELLS COUNTED 100
[2018-05-11 05:30] LABS: ANISOCYTOSIS 2+; PLATELET COMMENT ADEQUATE
[2018-05-11 05:32] LABS: LYMPHOCYTES % (MANUAL) 68 % (13-45)
[2018-05-11 05:34] LABS: ANION GAP 14 (5-19); BLOOD UREA NITROGEN 57 mg/dL (7-20); CALCIUM 8.2 mg/dL (8.4-10.2); CARBON DIOXIDE 22 mmol/L (22-30); CHLORIDE 104 mmol/L (98-107); GLUCOSE 97 mg/dL (75-110); POTASSIUM 4.5 mmol/L (3.6-5.0); SODIUM 139.5 mmol/L (137-145)
[2018-05-11] MEDS: NORMAL SALINE 1000 ML 1,000 ML IV PRN ×2 (06:26→17:01)
--- NOTE | 2018-05-11 09:17 | PDOC PROGRESS REPORT ---
Subjective Progress Note for:: 05/11/18 Subjective:: Patient is currently doing fair Patient still has some hemoptysis Patient is currently on Eliquis Patient VQ scan so some low probability of the pulmonary embolism Patient is denied any chest pain Patient is feeling better compared to yesterday o2 sat still 85% on 4 L nasal cannula Reason For Visit: PNEUMONIA Physical Exam Vital Signs: Temp Pulse Resp BP Pulse Ox 101.9 F H 125 H 23 H 104/71 95 05/11/18 07:35 05/11/18 08:13 05/11/18 08:13 05/11/18 07:35 05/11/18 09:12 Pulse Oximeter Continuous Start: 05/11/18 08: 43 Freq: RTQ4 Status: Active Document 05/11/18 09:12 [facility] (Rec: 05/11/18 09:12 [facility] [id number]) Pulse Oximetry Assessment Oxygen Saturation (92-100) 95 Oxygen Flow Rate (L/min) 4 Oxygen Delivery Method Nasal Cannula Equipment Usage Initial Set Up Continuous Pulse Oximeter 24 Hour Charge Charge Now Continuous SpO2 Machine # 3 Intake & Output 05/10/18 05/11/18 05/12/18 06:59 06:59 06:59 Intake Total 1000 Balance 1000 Weight 52.2 kg General appearance: PRESENT: no acute distress, well-developed, well-nourished Head exam: PRESENT: atraumatic, normocephalic Eye exam: PRESENT: conjunctiva pink, EOMI, PERRLA. ABSENT: scleral icterus Ear exam: PRESENT: normal external ear exam Mouth exam: PRESENT: moist, tongue midline Neck exam: PRESENT: full ROM. ABSENT: carotid bruit, JVD, lymphadenopathy, thyromegaly Respiratory exam: PRESENT: decreased breath sounds Cardiovascular exam: PRESENT: RRR. ABSENT: diastolic murmur, rubs, systolic murmur Pulses: PRESENT: normal dorsalis pedis pul, +2 pedal pulses bilateral Vascular exam: PRESENT: normal capillary refill GI/Abdominal exam: PRESENT: normal bowel sounds, soft. ABSENT: distended, guarding, mass, organolmegaly, rebound, tenderness Rectal exam: PRESENT: deferred Neurological exam: PRESENT: alert, awake, oriented to person, oriented to place , oriented to time, oriented to situation, CN II-XII grossly intact. ABSENT: motor sensory deficit Psychiatric exam: PRESENT: appropriate affect, normal mood. ABSENT: homicidal ideation, suicidal ideation Skin exam: PRESENT: dry, intact, warm. ABSENT: cyanosis, rash Results Laboratory Results: 05/11/18 04:36 05/11/18 04:36 05/11/18 05/11/18 04:36 04:36 WBC 5.8 RBC 2.63 L Hgb 8.8 L Hct 26.0 L MCV 99 H MCH 33.4 MCHC 33.8 RDW 18.6 H Plt Count 157 Seg Neutrophils % Not Reportable Lymphocytes % Not Reportable Monocytes % Not Reportable Eosinophils % Not Reportable Basophils % Not Reportable Absolute Neutrophils Not Reportable Absolute Lymphocytes Not Reportable Absolute Monocytes Not Reportable Absolute Eosinophils Not Reportable Absolute Basophils Not Reportable Sodium 139.5 Potassium 4.5 Chloride 104 Carbon Dioxide 22 Anion Gap 14 BUN 57 H Creatinine 2.44 H Est GFR ( Amer) 24 L Est GFR (Non-Af Amer) 20 L Glucose 97 Calcium 8.2 L Magnesium 1.7 Impressions: Chest X-Ray 05/10/18 13:00 IMPRESSION: Interval decrease in infiltrate within the right middle and right lower lobes. Interval decreased right pleural thickening or effusion. Chronic bilateral interstitial changes. Knee X-Ray 05/10/18 13:01 IMPRESSION: 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 Chest CT 05/10/18 15:25 IMPRESSION: Right middle lobe and lower lobe pneumonia associated with bronchiectasis. This appears more extensive than on the earlier CT. Limited bronchiectasis in the lingula. Cannot exclude a limited pneumonia in the lingula. Lung Scan-VQ NM 05/10/18 15:25 IMPRESSION: For activity on ventilation and perfusion at the right lung base correlates with dense consolidation in the right middle and lower lobe on CT chest 05/10/2018. This is a triple match and is low probability for pulmonary embolus on PIOPED criteria. Assessment & Plan - Diagnosis (1) Bronchiectasis Qualifiers: Bronchiectasis type: with acute exacerbation Qualified Code(s): J47.1 - Bronchiectasis with (acute) exacerbation Is this a current diagnosis for this admission?: Yes Plan: Continues to nebulizer treatment continues to IV antibiotic Continue cefepime and add the Levaquin Consult the pulmonary for further evaluations (2) Chronic atrial fibrillation Is this a current diagnosis for this admission?: Yes Plan: Currently hold Eliquis due to hemoptysis (3) Hemoptysis Is this a current diagnosis for this admission?: Yes Plan: We will currently hold Eliquis due to the hemoptysis consult the pulmonary (4) Hypoxia Is this a current diagnosis for this admission?: Yes Plan: Continues to nebulizer treatment continuous pulse ox get the ABG (5) Pneumonia Qualifiers: Pneumonia type: due to unspecified organism Laterality: right Lung location: lower lobe of lung Qualified Code(s): J18.1 - Lobar pneumonia, unspecified organism Is this a current diagnosis for this admission?: Yes Plan: IV cefepime and Levaquin (6) Acute exacerbation of bronchiectasis Is this a current diagnosis for this admission?: Yes Plan: nebulizer treatments (7) Anemia of chronic disease Is this a current diagnosis for this admission?: Yes (8) CLL (chronic lymphocytic leukemia) Is this a current diagnosis for this admission?: Yes - Time Time Spent with patient: 15-24 minutes Medications reviewed and adjusted accordingly: Yes Anticipated discharge: Home Within: Other - Inpatient Certification Based on my medical assessment, after consideration of the patient's comorbidities, presenting symptoms, or acuity I expect that the services needed warrant INPATIENT care.: Yes I certify that my determination is in accordance with my understanding of Medicare's requirements for reasonable and necessary INPATIENT services [42 CFR 412.3e].: Yes Medical Necessity: Significant Comorbidiites Make Outpatient Treatment Too Risky , Need For IV Fluids, Need for IV Antibiotics 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
[2018-05-11] MEDS: DOCUSATE SODIUM 100 MG CAPSULE PO SCH (09:43)
[2018-05-11] MEDS: ACETAMINOPHEN 325 MG TABLET PO PRN (09:43)
[2018-05-11] MEDS: SODIUM BICARBONATE 650 MG TABLET PO SCH ×2 (09:44→22:35)
[2018-05-11] MEDS: CEFEPIME 2 GM/D5W RTU 2 GM/50 ML RTUPB IV SCH ×2 (09:44→22:36)
[2018-05-11 10:18] LABS: ARTERIAL BLOOD BASE EXCESS -1.9 mmol/L; ARTERIAL BLOOD H2CO3 1.29 mmol/L (1.05-1.35); ARTERIAL BLOOD HCO3 23.5 mmol/L (20-24); ARTERIAL BLOOD O2 SATURATION 91.1 % (94-98); ARTERIAL BLOOD PCO2 42.7 mmHg (35-45); ARTERIAL BLOOD PH 7.36 (7.35-7.45); ARTERIAL BLOOD PO2 62.6 mmHg (80-100); ARTERIAL BLOOD TOTAL CO2 24.8 mmol/L (21-25)
[2018-05-11 10:19] LABS: ARTERIAL BLOOD FIO2 4L
[2018-05-11] MEDS: MONTELUKAST SODIUM 10 MG TABLET PO SCH (17:01)
[2018-05-11 22:29] LABS: APPEARANCE,URINE CLEAR; BILIRUBIN,URINE NEGATIVE (NEGATIVE); COLOR,URINE YELLOW; GLUCOSE, URINE NEGATIVE (NEGATIVE); KETONES,URINE NEGATIVE (NEGATIVE); LEUKOCYTE ESTERASE,URINE NEGATIVE (NEGATIVE); NITRITE,URINE NEGATIVE (NEGATIVE); PROTEIN,URINE NEGATIVE (NEGATIVE); URINE SPECIFIC GRAVITY 1.008
[2018-05-12] MEDS: IPRATROPIUM/ALBUTEROL 0.5-2.5 MG/3 ML AMPUL NEB SCH ×6 (00:06→20:26)
[2018-05-12] MEDS: ACETAMINOPHEN 325 MG TABLET PO PRN (01:00)
[2018-05-12] MEDS: NORMAL SALINE 1000 ML 1,000 ML IV PRN ×3 (03:58→17:16)
[2018-05-12 06:36] LABS: ANION GAP 11 (5-19); BLOOD UREA NITROGEN 44 mg/dL (7-20); CALCIUM 8.1 mg/dL (8.4-10.2); CARBON DIOXIDE 23 mmol/L (22-30); CHLORIDE 108 mmol/L (98-107); GLUCOSE 89 mg/dL (75-110); POTASSIUM 3.8 mmol/L (3.6-5.0); SODIUM 141.9 mmol/L (137-145)
[2018-05-12 06:45] LABS: HEMATOCRIT 23.2 % (36.0-47.0); MEAN CORPUSCULAR HEMOGLOBIN 33.8 pg (27.0-33.4); MEAN CORPUSCULAR HGB CONC 34.2 g/dL (32.0-36.0); MEAN CORPUSCULAR VOLUME 99 fl (80-97); PLATELET COUNT 126 10^3/uL (150-450); RED BLOOD COUNT 2.34 10^6/uL (3.72-5.28); RED CELL DISTRIBUTION WIDTH 18.9 % (11.5-14.0); WHITE BLOOD COUNT 8.3 10^3/uL (4.0-10.5)
[2018-05-12 07:13] LABS: HEMOGLOBIN 7.9 g/dL (12.0-15.5)
[2018-05-12 07:40] LABS: ABSOLUTE LYMPHOCYTES# (MANUAL) 3.6 10^3/uL (0.5-4.7); ABSOLUTE MONOCYTES # (MANUAL) 0.2 10^3/uL (0.1-1.4); ABSOLUTE NEUTROPHILS# (MANUAL) 4.6 10^3/uL (1.7-8.2); BAND NEUTROPHILS % (MANUAL) 5 % (3-5); BASOPHILS % (MANUAL) 0 % (0-2); EOSINOPHILS % (MANUAL) 0 % (0-6); LYMPHOCYTES % (MANUAL) 43 % (13-45); MONOCYTES % (MANUAL) 2 % (3-13); SEGMENTED NEUTROPHILS % (MAN) 50 % (42-78); TOTAL CELLS COUNTED 100
[2018-05-12 07:41] LABS: POLYCHROMASIA SLIGHT
[2018-05-12 07:42] LABS: ANISOCYTOSIS 2+; PLATELET COMMENT DECREASED
--- NOTE | 2018-05-12 09:02 | PDOC PROGRESS REPORT ---
Subjective Progress Note for:: 05/12/18 Subjective:: Patient is currently doing well Patient still feeling weak Patient is denied any chest pain denied any shortness of the breath Patient's hemoglobin is 7.9 Reason For Visit: PNEUMONIA Physical Exam Vital Signs: Temp Pulse Resp BP Pulse Ox 98.0 F 90 16 125/66 99 05/12/18 07:37 05/12/18 08:15 05/12/18 08:15 05/12/18 07:37 05/12/18 08:15 Pulse Oximeter Continuous Start: 05/11/18 08: 43 Freq: RTQ4 Status: Active Document 05/12/18 08:15 [facility] (Rec: 05/12/18 08:53 [facility] [id number]) Pulse Oximetry Assessment Oxygen Saturation (92-100) 97 Oxygen Flow Rate (L/min) 4 Oxygen Delivery Method Nasal Cannula Equipment Usage Equipment in Use Continuous SpO2 Machine # 3 Intake & Output 05/11/18 05/12/18 05/13/18 06:59 06:59 06:59 Intake Total 1050 3172 Balance 1050 3172 Weight 52.2 kg 52.6 kg General appearance: PRESENT: no acute distress, well-developed, well-nourished Head exam: PRESENT: atraumatic, normocephalic Eye exam: PRESENT: conjunctiva pink, EOMI, PERRLA. ABSENT: scleral icterus Ear exam: PRESENT: normal external ear exam Mouth exam: PRESENT: moist, tongue midline Neck exam: PRESENT: full ROM. ABSENT: carotid bruit, JVD, lymphadenopathy, thyromegaly Respiratory exam: PRESENT: clear to auscultation sendy Cardiovascular exam: PRESENT: RRR. ABSENT: diastolic murmur, rubs, systolic murmur Pulses: PRESENT: normal dorsalis pedis pul, +2 pedal pulses bilateral Vascular exam: PRESENT: normal capillary refill GI/Abdominal exam: PRESENT: normal bowel sounds, soft. ABSENT: distended, guarding, mass, organolmegaly, rebound, tenderness Rectal exam: PRESENT: deferred Extremities exam: ABSENT: pedal edema Neurological exam: PRESENT: alert, awake, oriented to person, oriented to place , oriented to time, oriented to situation, CN II-XII grossly intact. ABSENT: motor sensory deficit Psychiatric exam: PRESENT: appropriate affect, normal mood. ABSENT: homicidal ideation, suicidal ideation Skin exam: PRESENT: dry, intact, warm. ABSENT: cyanosis, rash Results Laboratory Results: 05/12/18 05:39 05/12/18 05:39 05/11/18 05/11/18 05/11/18 09:18 15:40 21:35 WBC RBC Hgb Hct MCV MCH MCHC RDW Plt Count Seg Neutrophils % Lymphocytes % Monocytes % Eosinophils % Basophils % Absolute Neutrophils Absolute Lymphocytes Absolute Monocytes Absolute Eosinophils Absolute Basophils Carbonic Acid 1.29 HCO3/H2CO3 Ratio 18:1 ABG pH 7.36 ABG pCO2 42.7 ABG pO2 62.6 L ABG HCO3 23.5 ABG O2 Saturation 91.1 L ABG Base Excess -1.9 FiO2 4L Sodium Potassium Chloride Carbon Dioxide Anion Gap BUN Creatinine Est GFR ( Amer) Est GFR (Non-Af Amer) Glucose Calcium Magnesium Urine Color YELLOW Urine Appearance CLEAR Urine pH 5.0 Ur Specific [place] 1.008 Urine Protein NEGATIVE Urine Glucose (UA) NEGATIVE Urine Ketones NEGATIVE Urine Blood SMALL H Urine Nitrite NEGATIVE Ur Leukocyte Esterase NEGATIVE Urine WBC (Auto) 1 Urine RBC (Auto) 2 Stool Occult Blood NEGATIVE 05/12/18 05/12/18 05:39 05:39 WBC 8.3 RBC 2.34 L Hgb 7.9 L Hct 23.2 L MCV 99 H MCH 33.8 H MCHC 34.2 RDW 18.9 H Plt Count 126 L Seg Neutrophils % Not Reportable Lymphocytes % Not Reportable Monocytes % Not Reportable Eosinophils % Not Reportable Basophils % Not Reportable Absolute Neutrophils Not Reportable Absolute Lymphocytes Not Reportable Absolute Monocytes Not Reportable Absolute Eosinophils Not Reportable Absolute Basophils Not Reportable Carbonic Acid HCO3/H2CO3 Ratio ABG pH ABG pCO2 ABG pO2 ABG HCO3 ABG O2 Saturation ABG Base Excess FiO2 Sodium 141.9 Potassium 3.8 Chloride 108 H Carbon Dioxide 23 Anion Gap 11 BUN 44 H Creatinine 2.12 H Est GFR ( Amer) 28 L Est GFR (Non-Af Amer) 23 L Glucose 89 Calcium 8.1 L Magnesium 1.6 Urine Color Urine Appearance Urine pH Ur Specific [place] Urine Protein Urine Glucose (UA) Urine Ketones Urine Blood Urine Nitrite Ur Leukocyte Esterase Urine WBC (Auto) Urine RBC (Auto) Stool Occult Blood Impressions: Chest X-Ray 05/10/18 13:00 IMPRESSION: Interval decrease in infiltrate within the right middle and right lower lobes. Interval decreased right pleural thickening or effusion. Chronic bilateral interstitial changes. Knee X-Ray 05/10/18 13:01 IMPRESSION: 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 Chest CT 05/10/18 15:25 IMPRESSION: Right middle lobe and lower lobe pneumonia associated with bronchiectasis. This appears more extensive than on the earlier CT. Limited bronchiectasis in the lingula. Cannot exclude a limited pneumonia in the lingula. Lung Scan-VQ NM 05/10/18 15:25 IMPRESSION: For activity on ventilation and perfusion at the right lung base correlates with dense consolidation in the right middle and lower lobe on CT chest 05/10/2018. This is a triple match and is low probability for pulmonary embolus on PIOPED criteria. Assessment & Plan - Diagnosis (1) Bronchiectasis Qualifiers: Bronchiectasis type: with acute exacerbation Qualified Code(s): J47.1 - Bronchiectasis with (acute) exacerbation Is this a current diagnosis for this admission?: Yes Plan: Continues to nebulizer treatment continues to IV antibiotic Continue cefepime and add the Levaquin Consult the pulmonary for further evaluations (2) Chronic atrial fibrillation Is this a current diagnosis for this admission?: Yes Plan: Currently hold Eliquis due to hemoptysis (3) Hemoptysis Is this a current diagnosis for this admission?: Yes Plan: After holding the Eliquis currently all improving (4) Hypoxia Is this a current diagnosis for this admission?: Yes Plan: Continues to nebulizer treatment continuous pulse ox get the ABG (5) Pneumonia Qualifiers: Pneumonia type: due to unspecified organism Laterality: right Lung location: lower lobe of lung Qualified Code(s): J18.1 - Lobar pneumonia, unspecified organism Is this a current diagnosis for this admission?: Yes Plan: IV cefepime and Levaquin (6) Acute exacerbation of bronchiectasis Is this a current diagnosis for this admission?: Yes Plan: nebulizer treatments (7) Anemia of chronic disease Is this a current diagnosis for this admission?: Yes Plan: Continues to monitor the patient's CBC (8) CLL (chronic lymphocytic leukemia) Is this a current diagnosis for this admission?: Yes Plan: Follow outpatients Dr. Barahona - Time Time Spent with patient: 15-24 minutes Medications reviewed and adjusted accordingly: Yes Anticipated discharge: Home Within: Other - Inpatient Certification Based on my medical assessment, after consideration of the patient's comorbidities, presenting symptoms, or acuity I expect that the services needed warrant INPATIENT care.: Yes I certify that my determination is in accordance with my understanding of Medicare's requirements for reasonable and necessary INPATIENT services [42 CFR 412.3e].: Yes Medical Necessity: Need Close Monitoring Due to Risk of Patient Decompensation, Need for IV Antibiotics Post Hospital 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
[2018-05-12] MEDS: DOCUSATE SODIUM 100 MG CAPSULE PO SCH (09:28)
[2018-05-12] MEDS: CEFEPIME 2 GM/D5W RTU 2 GM/50 ML RTUPB IV SCH ×2 (09:30→23:21)
[2018-05-12] MEDS: SODIUM BICARBONATE 650 MG TABLET PO SCH ×2 (09:30→23:21)
[2018-05-12] MEDS: MONTELUKAST SODIUM 10 MG TABLET PO SCH (17:14)
[2018-05-12] MEDS ORDERED: GUAIFENESIN 600 MG TABLET.SA PO ONE (20:00)
[2018-05-12] MEDS ORDERED: BUSPIRONE HCL 10 MG TABLET PO ONE (20:15)
[2018-05-13] MEDS: IPRATROPIUM/ALBUTEROL 0.5-2.5 MG/3 ML AMPUL NEB SCH ×5 (00:12→20:03)
[2018-05-13 06:26] LABS: HEMATOCRIT 23.5 % (36.0-47.0); MEAN CORPUSCULAR HEMOGLOBIN 33.3 pg (27.0-33.4); MEAN CORPUSCULAR HGB CONC 33.8 g/dL (32.0-36.0); MEAN CORPUSCULAR VOLUME 99 fl (80-97); PLATELET COUNT 182 10^3/uL (150-450); RED BLOOD COUNT 2.38 10^6/uL (3.72-5.28); RED CELL DISTRIBUTION WIDTH 19.1 % (11.5-14.0); WHITE BLOOD COUNT 10.9 10^3/uL (4.0-10.5)
[2018-05-13 06:28] LABS: HEMOGLOBIN 7.9 g/dL (12.0-15.5)
[2018-05-13 06:41] LABS: ABSOLUTE MONOCYTES # (MANUAL) 0.1 10^3/uL (0.1-1.4); ABSOLUTE NEUTROPHILS# (MANUAL) 6.6 10^3/uL (1.7-8.2); BAND NEUTROPHILS % (MANUAL) 2 % (3-5); BASOPHILS % (MANUAL) 0 % (0-2); EOSINOPHILS % (MANUAL) 1 % (0-6); LYMPHOCYTES % (MANUAL) 37 % (13-45); MONOCYTES % (MANUAL) 1 % (3-13); NUCLEATED RED BLOOD CELLS 2 /100 WBC (0); POLYCHROMASIA SLIGHT; SEGMENTED NEUTROPHILS % (MAN) 59 % (42-78); TOTAL CELLS COUNTED 100; TOXIC GRANULATION 1+; TOXIC VACUOLATION PRESENT
[2018-05-13 06:42] LABS: ANISOCYTOSIS 2+; BURR CELLS 1+; PLATELET COMMENT ADEQUATE; PLATELET LARGE PRESENT; POIKILOCYTOSIS SLIGHT
[2018-05-13 07:03] LABS: ANION GAP 10 (5-19); BLOOD UREA NITROGEN 37 mg/dL (7-20); CALCIUM 8.2 mg/dL (8.4-10.2); CARBON DIOXIDE 24 mmol/L (22-30); CHLORIDE 108 mmol/L (98-107); GLUCOSE 82 mg/dL (75-110); POTASSIUM 3.7 mmol/L (3.6-5.0); SODIUM 142.1 mmol/L (137-145)
[2018-05-13] MEDS: GUAIFENESIN 600 MG TABLET.SA PO SCH ×2 (10:56→18:54)
[2018-05-13] MEDS: BUSPIRONE HCL 10 MG TABLET PO SCH ×2 (10:56→18:54)
[2018-05-13] MEDS: SODIUM BICARBONATE 650 MG TABLET PO SCH ×2 (10:56→21:25)
[2018-05-13] MEDS: CEFEPIME 2 GM/D5W RTU 2 GM/50 ML RTUPB IV SCH ×2 (10:57→21:25)
[2018-05-13] MEDS: DOCUSATE SODIUM 100 MG CAPSULE PO SCH (10:57)
--- NOTE | 2018-05-13 11:44 | PDOC CONSULTATION ---
Consultation Consult Date: 05/13/18 Attending physician:: YONY JEFF Consult reason:: Dyspnea/hemoptysis/recurrent pneumonia History of Present Illness Admission Date/PCP: 05/10/18 15:59 ERUM HENAO MD History of Present Illness: JANET NEVAREZ is a 72 year old female, presented to the ED for hemoptysis and a sore right knee approximately 2 days after having a near syncopal episode in [facility] where she was advised to go to the emergency room but did not smoke 1 pack a day for 5 years but allegedly stopped at 32 years old. Her PPD status is unknown she has no history of chronic lung disease as a child or adolescent. She admits to exposure to passive smoke as a child as well as an adult. She worked approximately 35 years in [employer] where she exposed large amounts of dust from a cotton. She has no pets. She recently traveled to [place] where she was 4-month. She denies angina-like chest pain sleeps on 2 pillows occasional PND occasional nocturnal cough no edema. She is unaware of any snoring she does have some restless sleep from time to time nocturia 4-5 times per night, intermittent unrestful sleep excessive daytime somnolence. He carries a diagnosis of CLL getting chemotherapy in the last treatment was 2017. Past Medical History Cardiac Medical History: Reports: Atrial Fibrillation - paroxysmal type, Hypertension Denies: Myocardial Infarction Pulmonary Medical History: Reports: Bronchitis, Chronic Obstructive Pulmonary Disease (COPD), Pneumonia Denies: Asthma, Tuberculosis Neurological Medical History: Denies: Seizures Malignancy Medical History: Reports: Leukemia - chronic lymphocytic leukemia Musculoskeltal Medical History: Reports: Arthritis - osteoarthritis Psychiatric Medical History: Denies: Depression Hematology: Denies: Anemia Infectious Medical History: Reports: Methicillin-Resistant Staph Aureus Social History Information Source: Patient, [facility] Records 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 Lives with: Family Smoking Status: Former Smoker Last Time Smoked: 40 years ago Frequency of Alcohol Use: None Hx Recreational Drug Use: No Drugs: None Hx Prescription Drug Abuse: No Do you have pets?: No Have you had any respiratory illnesses as a child?: No Have you been exposed to any sick contacts recently?: No Have you travelled outside of [place] in the past 12 months?: No - Advance Directive Resuscitation Status: Full Code Family History Family History: Hypertension Parental Family History Reviewed: Yes Children Family History Reviewed: Yes Sibling(s) Family History Reviewed.: Yes Medication/Allergy Home Medications: Montelukast Sodium [Singulair 10 mg Tablet] 10 mg PO QPM 08/04/17 Metoprolol Succinate [Toprol Xl] 50 mg PO DAILY 02/23/18 Sodium Bicarbonate [Sodium Bicarbonate 650 mg Tablet] 650 mg PO Q12 #60 tablet 02/23/18 Ergocalciferol (Vitamin D2) [Drisdol 50,000 unit (1.25MG) Capsule] 1 cap PO MENDOZA@ 1000 PRN 03/30/18 Apixaban [Eliquis 2.5 mg Tablet] 2.5 mg PO BID #60 tablet 04/09/18 Albuterol Sulfate [Proair Hfa Inhalation Aerosol 8.5 gm Mdi] 2 puff IH Q6HP PRN 05/10/18 Dapsone 100 mg PO DAILY 05/10/18 Allergies/Adverse Reactions: No Known Allergies Allergy (Verified 05/10/18 19:31) Review of Systems Constitutional: PRESENT: chills, fever(s), weakness. ABSENT: night sweats Eyes: ABSENT: visual disturbances Ears: ABSENT: hearing changes Nose, Mouth, and Throat: ABSENT: sore throat Cardiovascular: PRESENT: dyspnea on exertion. ABSENT: chest pain, edema, orthropnea, palpitations Respiratory: PRESENT: cough, dyspnea. ABSENT: hemoptysis Gastrointestinal: ABSENT: abdominal pain, coffee ground emesis, constipation, dysphagia, hematemesis, hematochezia, melena Genitourinary: PRESENT: nocturia. ABSENT: hematuria Integumentary: ABSENT: pruritus, rash Neurological: ABSENT: abnormal speech, confusion, lack of coordination, memory loss Psychiatric: ABSENT: hallucinations, homidical ideation, suicidal ideation Endocrine: ABSENT: cold intolerance, heat intolerance, polydipsia, polyuria Hematologic/Lymphatic: ABSENT: easy bleeding, easy bruising Allergic/Immunologic: ABSENT: seasonal rhinorrhea Physical Exam Vital Signs: Temp Pulse Resp BP Pulse Ox 97.9 F 104 H 18 134/88 H 95 05/13/18 07:28 05/13/18 07:44 05/13/18 07:44 05/13/18 07:28 05/13/18 07:44 Pulse Oximeter Continuous Start: 05/11/18 08: 43 Freq: RTQ4 Status: Active Document 05/13/18 07:44 [facility] (Rec: 05/13/18 07:52 [facility] [id number]) Pulse Oximetry Assessment Oxygen Saturation (92-100) 95 Oxygen Flow Rate (L/min) 1 Oxygen Delivery Method Nasal Cannula Fraction of Inspired Oxygen (FIO2) 24 Equipment Usage Equipment in Use Continuous SpO2 Machine # N 3 Intake & Output 05/12/18 05/13/18 05/14/18 06:59 06:59 06:59 Intake Total 3222 1581 Balance 3222 1581 Weight 52.6 kg 53.4 kg General appearance: PRESENT: no acute distress, cooperative, disheveled, thin, well-developed, well-nourished Head exam: PRESENT: atraumatic, normocephalic Eye exam: PRESENT: conjunctiva pale, EOMI. ABSENT: nystagmus, periorbital swelling, scleral icterus Mouth exam: PRESENT: dry mucosa, neck supple, tongue midline Neck exam: ABSENT: carotid bruit, JVD, lymphadenopathy, thyromegaly, tracheal deviation, tracheostomy Respiratory exam: PRESENT: crackles, decreased breath sounds, prolonged expiratory phas, rhonchi, unlabored. ABSENT: retraction, stridor, tachypnea Cardiovascular exam: PRESENT: RRR, +S1, +S2, tachycardia Pulses: PRESENT: normal radial pulses GI/Abdominal exam: PRESENT: soft. ABSENT: tenderness Extremities exam: ABSENT: calf tenderness, clubbing, joint swelling, pedal edema Musculoskeletal exam: ABSENT: deformity, dislocation Neurological exam: PRESENT: alert, awake Psychiatric exam: PRESENT: normal mood Skin exam: PRESENT: dry, warm Results Laboratory Results: 05/13/18 05:55 05/13/18 06:37 05/13/18 05/13/18 05/13/18 05:55 05:55 06:37 WBC 10.9 H RBC 2.38 L Hgb 7.9 L Hct 23.5 L MCV 99 H MCH 33.3 MCHC 33.8 RDW 19.1 H Plt Count 182 Seg Neutrophils % Not Reportable Lymphocytes % Not Reportable Monocytes % Not Reportable Eosinophils % Not Reportable Basophils % Not Reportable Absolute Neutrophils Not Reportable Absolute Lymphocytes Not Reportable Absolute Monocytes Not Reportable Absolute Eosinophils Not Reportable Absolute Basophils Not Reportable Sodium Cancelled 142.1 Potassium Cancelled 3.7 Chloride Cancelled 108 H Carbon Dioxide Cancelled 24 Anion Gap Cancelled 10 BUN Cancelled 37 H Creatinine Cancelled 1.95 H Est GFR ( Amer) Cancelled 31 L Est GFR (Non-Af Amer) Cancelled 25 L Glucose Cancelled 82 Calcium Cancelled 8.2 L Magnesium Cancelled 1.4 L Impressions: Chest X-Ray 05/10/18 13:00 IMPRESSION: Interval decrease in infiltrate within the right middle and right lower lobes. Interval decreased right pleural thickening or effusion. Chronic bilateral interstitial changes. Knee X-Ray 05/10/18 13:01 IMPRESSION: 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 Chest CT 05/10/18 15:25 IMPRESSION: Right middle lobe and lower lobe pneumonia associated with bronchiectasis. This appears more extensive than on the earlier CT. Limited bronchiectasis in the lingula. Cannot exclude a limited pneumonia in the lingula. Lung Scan-VQ NM 05/10/18 15:25 IMPRESSION: For activity on ventilation and perfusion at the right lung base correlates with dense consolidation in the right middle and lower lobe on CT chest 05/10/2018. This is a triple match and is low probability for pulmonary embolus on PIOPED criteria. Assessment & Plan - Diagnosis (1) Acute kidney injury Is this a current diagnosis for this admission?: Yes Plan: Improving acute/chronic (2) Bronchiectasis Qualifiers: Bronchiectasis type: with acute exacerbation Qualified Code(s): J47.1 - Bronchiectasis with (acute) exacerbation Is this a current diagnosis for this admission?: Yes Plan: 05/10/18 13:14 Gram Stain - Preliminary Sputum Sputum Culture - Preliminary Gram Negative Rods Gram Negative Rods#2 Nebulized tobramycin (3) Chronic atrial fibrillation Is this a current diagnosis for this admission?: Yes Plan: No anticoagulation at this time (4) Hemoptysis Is this a current diagnosis for this admission?: Yes Plan: Due to chronic infection due to bronchiectasis consider checking PPD status patient's bronchiectasis could predispose her to atypical tuberculosis (5) Lymphoma Qualifiers: Lymphoma type: unspecified type Lymphoma site: unspecified region Qualified Code(s): C85.90 - Non-Hodgkin lymphoma, unspecified, unspecified site Is this a current diagnosis for this admission?: Yes Plan: Treatments may in part account for her predisposition to pneumia particularly in the face of her bronchiectasis - Plan Summary Plan Summary: Thank you very much for allowing me to see Ms. Nevarez and help participate in her care.
[2018-05-13] MEDS ORDERED: LEVALBUTEROL HCL NEB 1.25 MG/3 ML AMPUL NEB PRN (11:46)
[2018-05-13] MEDS: NORMAL SALINE 1000 ML 1,000 ML IV PRN (14:33)
[2018-05-13] MEDS: MONTELUKAST SODIUM 10 MG TABLET PO SCH (18:54)
[2018-05-13] MEDS ORDERED: TOBRAMYCIN SULFATE INJ 80 MG/2 ML VIAL NEB SCH (20:00)
[2018-05-13] MEDS: TOBRAMYCIN SULFATE NEB 40 MG/ML 30 ML NEB SCH (20:02)
--- NOTE | 2018-05-13 20:44 | PDOC PROGRESS REPORT ---
Subjective Progress Note for:: 05/13/18 Subjective:: Patient was admitted over the weekend for the management of gram-negative pneumonia, history of CLL, recurrent pneumonia, she is on chronic anticoagulation with Eliquis. She presented with hemoptysis, she has a background of bronchiectasis with CLL, she was seen by the bedside today Reason For Visit: PNEUMONIA Physical Exam Vital Signs: Temp Pulse Resp BP Pulse Ox 99.0 F 89 18 154/81 H 96 05/13/18 19:25 05/13/18 20:02 05/13/18 20:02 05/13/18 19:25 05/13/18 20:02 Pulse Oximeter Continuous Start: 05/11/18 08: 43 Freq: RTQ4 Status: Active Document 05/13/18 20:02 LRU (Rec: 05/13/18 20:27 LRU [email or web address]) Pulse Oximetry Assessment Oxygen Saturation (92-100) 96 Oxygen Flow Rate (L/min) 1 Oxygen Delivery Method Nasal Cannula Fraction of Inspired Oxygen (FIO2) 24 Equipment Usage Equipment in Use Continuous SpO2 Machine # n-3 Intake & Output 05/12/18 05/13/18 05/14/18 06:59 06:59 06:59 Intake Total 3222 1581 1340 Balance 3222 1581 1340 Weight 52.6 kg 53.4 kg General appearance: PRESENT: no acute distress Eye exam: PRESENT: PERRLA Respiratory exam: PRESENT: rhonchi Cardiovascular exam: PRESENT: +S1, +S2 GI/Abdominal exam: PRESENT: soft Neurological exam: PRESENT: alert Results Laboratory Results: 05/13/18 05:55 05/13/18 06:37 05/13/18 05/13/18 05/13/18 05:55 05:55 06:37 WBC 10.9 H RBC 2.38 L Hgb 7.9 L Hct 23.5 L MCV 99 H MCH 33.3 MCHC 33.8 RDW 19.1 H Plt Count 182 Seg Neutrophils % Not Reportable Lymphocytes % Not Reportable Monocytes % Not Reportable Eosinophils % Not Reportable Basophils % Not Reportable Absolute Neutrophils Not Reportable Absolute Lymphocytes Not Reportable Absolute Monocytes Not Reportable Absolute Eosinophils Not Reportable Absolute Basophils Not Reportable Sodium Cancelled 142.1 Potassium Cancelled 3.7 Chloride Cancelled 108 H Carbon Dioxide Cancelled 24 Anion Gap Cancelled 10 BUN Cancelled 37 H Creatinine Cancelled 1.95 H Est GFR ( Amer) Cancelled 31 L Est GFR (Non-Af Amer) Cancelled 25 L Glucose Cancelled 82 Calcium Cancelled 8.2 L Magnesium Cancelled 1.4 L Impressions: Chest X-Ray 05/10/18 13:00 IMPRESSION: Interval decrease in infiltrate within the right middle and right lower lobes. Interval decreased right pleural thickening or effusion. Chronic bilateral interstitial changes. Knee X-Ray 05/10/18 13:01 IMPRESSION: 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 Chest CT 05/10/18 15:25 IMPRESSION: Right middle lobe and lower lobe pneumonia associated with bronchiectasis. This appears more extensive than on the earlier CT. Limited bronchiectasis in the lingula. Cannot exclude a limited pneumonia in the lingula. Lung Scan-VQ NM 05/10/18 15:25 IMPRESSION: For activity on ventilation and perfusion at the right lung base correlates with dense consolidation in the right middle and lower lobe on CT chest 05/10/2018. This is a triple match and is low probability for pulmonary embolus on PIOPED criteria. Assessment & Plan - Diagnosis (1) Gram-negative pneumonia Is this a current diagnosis for this admission?: Yes Plan: Continue IV antibiotic (2) CLL (chronic lymphocytic leukemia) Is this a current diagnosis for this admission?: Yes
[2018-05-14] MEDS: ACETAMINOPHEN 325 MG TABLET PO PRN (00:25)
[2018-05-14] MEDS: IPRATROPIUM/ALBUTEROL 0.5-2.5 MG/3 ML AMPUL NEB SCH ×4 (02:15→13:46)
[2018-05-14] MEDS: TOBRAMYCIN SULFATE NEB 40 MG/ML 30 ML NEB SCH (08:47)
[2018-05-14] MEDS: BUSPIRONE HCL 10 MG TABLET PO SCH ×2 (09:39→17:39)
[2018-05-14] MEDS: SODIUM BICARBONATE 650 MG TABLET PO SCH ×2 (09:40→23:07)
[2018-05-14] MEDS: DOCUSATE SODIUM 100 MG CAPSULE PO SCH (09:40)
[2018-05-14] MEDS: CEFEPIME 2 GM/D5W RTU 2 GM/50 ML RTUPB IV SCH ×2 (09:40→23:07)
[2018-05-14] MEDS: GUAIFENESIN 600 MG TABLET.SA PO SCH ×2 (09:40→17:39)
[2018-05-14] MEDS: METOPROLOL SUCCINATE 50 MG TAB.SR.24H PO SCH (13:29)
[2018-05-14] MEDS: MONTELUKAST SODIUM 10 MG TABLET PO SCH (17:39)
--- NOTE | 2018-05-14 20:13 | PDOC PROGRESS REPORT ---
Subjective Progress Note for:: 05/14/18 Subjective:: She has Pseudomonas and Citrobacter pneumonia sputum culture grew Pseudomonas and Citrobacter. She is prone to pneumonia the last time she was admitted she also had gram-negative pneumonia. She is immunocompromised, history of CLL on chemotherapy she also has a history of acquired hypogammaglobulinemia. She has had multiple IVIG outpatient Reason For Visit: PNEUMONIA Physical Exam Vital Signs: Temp Pulse Resp BP Pulse Ox 97.6 F 88 20 148/78 H 98 05/14/18 15:32 05/14/18 15:32 05/14/18 15:32 05/14/18 15:32 05/14/18 16:18 Pulse Oximeter Continuous Start: 05/11/18 08: 43 Freq: RTQ4 Status: Active Document 05/14/18 16:18 HCR (Rec: 05/14/18 16:19 HCR [email or web address]) Pulse Oximetry Assessment Oxygen Saturation (92-100) 98 Oxygen Flow Rate (L/min) 3 Oxygen Delivery Method Nasal Cannula Equipment Usage Equipment in Use Continuous SpO2 Machine # 3 Intake & Output 05/13/18 05/14/18 05/15/18 06:59 06:59 06:59 Intake Total 1581 1390 1173 Output Total 600 550 Balance 1581 790 623 Weight 53.4 kg 53.3 kg General appearance: PRESENT: no acute distress Eye exam: PRESENT: PERRLA Respiratory exam: PRESENT: rhonchi Cardiovascular exam: PRESENT: +S1, +S2 GI/Abdominal exam: PRESENT: soft Neurological exam: PRESENT: alert Results Laboratory Results: 05/13/18 05:55 05/13/18 06:37 Impressions: Chest X-Ray 05/10/18 13:00 IMPRESSION: Interval decrease in infiltrate within the right middle and right lower lobes. Interval decreased right pleural thickening or effusion. Chronic bilateral interstitial changes. Knee X-Ray 05/10/18 13:01 IMPRESSION: 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 Chest CT 05/10/18 15:25 IMPRESSION: Right middle lobe and lower lobe pneumonia associated with bronchiectasis. This appears more extensive than on the earlier CT. Limited bronchiectasis in the lingula. Cannot exclude a limited pneumonia in the lingula. Lung Scan-VQ NM 05/10/18 15:25 IMPRESSION: For activity on ventilation and perfusion at the right lung base correlates with dense consolidation in the right middle and lower lobe on CT chest 05/10/2018. This is a triple match and is low probability for pulmonary embolus on PIOPED criteria. Assessment & Plan - Diagnosis (1) Pseudomonas pneumonia Qualifiers: Laterality: unspecified laterality Lung location: unspecified part of lung Qualified Code(s): J15.1 - Pneumonia due to Pseudomonas Is this a current diagnosis for this admission?: Yes Plan: Patient currently on cefepime, the bacteria is sensitive to cefepime (2) CLL (chronic lymphocytic leukemia) Is this a current diagnosis for this admission?: Yes (3) Citrobacter infection Is this a current diagnosis for this admission?: Yes
[2018-05-14] MEDS: LEVALBUTEROL HCL NEB 1.25 MG/3 ML AMPUL NEB SCH (20:38)
[2018-05-15] MEDS: LEVALBUTEROL HCL NEB 1.25 MG/3 ML AMPUL NEB SCH ×4 (02:19→20:24)
[2018-05-15] MEDS: NYSTATIN/DEXAMETH/DIPHEN SUSP 120 ML PO SCH ×5 (07:12→19:29)
[2018-05-15] MEDS: DOCUSATE SODIUM 100 MG CAPSULE PO SCH (09:27)
[2018-05-15] MEDS: GUAIFENESIN 600 MG TABLET.SA PO SCH ×2 (09:27→17:12)
[2018-05-15] MEDS: METOPROLOL SUCCINATE 50 MG TAB.SR.24H PO SCH (09:27)
[2018-05-15] MEDS: BUSPIRONE HCL 10 MG TABLET PO SCH ×2 (09:27→17:12)
[2018-05-15] MEDS: SODIUM BICARBONATE 650 MG TABLET PO SCH ×2 (09:29→22:37)
[2018-05-15] MEDS: NORMAL SALINE 1000 ML 1,000 ML IV PRN (10:29)
[2018-05-15] MEDS: CEFEPIME 2 GM/D5W RTU 2 GM/50 ML RTUPB IV SCH ×2 (10:29→22:37)
--- NOTE | 2018-05-15 10:41 | RADIOLOGY REPORT (SQ) ---
EXAM DESCRIPTION: CT HEAD WITHOUT COMPLETED DATE/TIME: 05/15/2018 10:05 am REASON FOR STUDY: Slurred Speech/ R/O stroke COMPARISON: 03/30/2018. TECHNIQUE: Axial images acquired through the brain without intravenous contrast. Images reviewed wi th bone, brain and subdural windows. Additional sagittal and coronal reconstructions were generated. Images stored on PACS. All CT scanners at this facility use dose modulation, iterative reconstruction, and/or weight based d osing when appropriate to reduce radiation dose to as low as reasonably achievable (ALARA). [facility]: Dose Right [facility]: CareDose [facility]: Dose Right [facility]: Teradose 4D [facility]: Smart PLAXD RADIATION DOSE: CT Rad equipment meets quality standard of care and radiation dose reduction techniq ues were employed. CTDIvol: 48.7 mGy. DLP: 1028 mGy-cm. mGy. LIMITATIONS: Skewed head positioning. FINDINGS: VENTRICLES: Normal size and contour. CEREBRUM: No masses. No hemorrhage. No midline shift. No evidence for acute infarction. Normal gra y/white matter differentiation. No areas of low density in the white matter. CEREBELLUM: No masses. No hemorrhage. No alteration of density. No evidence for acute infarction. EXTRAAXIAL SPACES: No fluid collections. No masses. ORBITS AND GLOBE: No intra- or extraconal masses. Normal contour of globe without masses. CALVARIUM: No fracture. PARANASAL SINUSES: No fluid levels. Bilateral mucosal polypoid thickening in the maxillary sinuses. SOFT TISSUES: No mass or hematoma. OTHER: No other significant finding. IMPRESSION: No acute intracranial abnormality. EVIDENCE OF ACUTE STROKE: NO. COMMENT: Quality ID # [id number]: Final reports with documentation of one or more dose reduction techniques (e.g., Automated exposure control, adjustment of the mA and/or kV according to patient size, use of iterative reconstruction technique) TECHNICAL DOCUMENTATION: JOB ID: [id number] [employer]- All Rights Reserved Reading location - IP/workstation name: [email or web address]
[2018-05-15] MEDS: MONTELUKAST SODIUM 10 MG TABLET PO SCH (17:12)
--- NOTE | 2018-05-15 17:47 | PDOC PROGRESS REPORT ---
Subjective Progress Note for:: 05/15/18 Subjective:: Patient is very anxious, she has tremors, most likely from bronchodilators, CT head was done it was negative for any acute pathology Reason For Visit: PNEUMONIA Physical Exam Vital Signs: Temp Pulse Resp BP Pulse Ox 97.7 F 92 17 149/77 H 96 05/15/18 15:58 05/15/18 15:58 05/15/18 15:58 05/15/18 15:58 05/15/18 15:58 Pulse Oximeter Continuous Start: 05/11/18 08: 43 Freq: RTQ4 Status: Active Document 05/15/18 12:00 HCR (Rec: 05/15/18 14:11 HCR [email or web address]) Pulse Oximetry Assessment Oxygen Saturation (92-100) 98 Oxygen Flow Rate (L/min) 3 Oxygen Delivery Method Nasal Cannula Equipment Usage Equipment in Use Continuous SpO2 Machine # 3 Intake & Output 05/14/18 05/15/18 05/16/18 06:59 06:59 06:59 Intake Total 1390 2223 50 Output Total 600 550 Balance 790 1673 50 Weight 53.3 kg 50.8 kg Eye exam: PRESENT: PERRLA Ear exam: PRESENT: normal external ear exam Mouth exam: PRESENT: moist, tongue midline Neck exam: PRESENT: full ROM Respiratory exam: PRESENT: clear to auscultation sendy Cardiovascular exam: PRESENT: +S1, +S2 Pulses: PRESENT: normal dorsalis pedis pul, +2 pedal pulses bilateral Vascular exam: PRESENT: normal capillary refill GI/Abdominal exam: PRESENT: soft Rectal exam: PRESENT: deferred Neurological exam: PRESENT: alert Psychiatric exam: PRESENT: appropriate affect, normal mood Skin exam: PRESENT: dry, intact, warm Results Laboratory Results: 05/13/18 05:55 05/13/18 06:37 Impressions: Chest X-Ray 05/10/18 13:00 IMPRESSION: Interval decrease in infiltrate within the right middle and right lower lobes. Interval decreased right pleural thickening or effusion. Chronic bilateral interstitial changes. Knee X-Ray 05/10/18 13:01 IMPRESSION: 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 Chest CT 05/10/18 15:25 IMPRESSION: Right middle lobe and lower lobe pneumonia associated with bronchiectasis. This appears more extensive than on the earlier CT. Limited bronchiectasis in the lingula. Cannot exclude a limited pneumonia in the lingula. Lung Scan-VQ NM 05/10/18 15:25 IMPRESSION: For activity on ventilation and perfusion at the right lung base correlates with dense consolidation in the right middle and lower lobe on CT chest 05/10/2018. This is a triple match and is low probability for pulmonary embolus on PIOPED criteria. Head CT 05/15/18 00:00 IMPRESSION: No acute intracranial abnormality. EVIDENCE OF ACUTE STROKE: NO. Assessment & Plan - Diagnosis (1) Acute hypoxemic respiratory failure Is this a current diagnosis for this admission?: Yes (2) Pseudomonas pneumonia Qualifiers: Laterality: unspecified laterality Lung location: unspecified part of lung Qualified Code(s): J15.1 - Pneumonia due to Pseudomonas Is this a current diagnosis for this admission?: Yes Plan: Continue IV antibiotic (3) CLL (chronic lymphocytic leukemia) Is this a current diagnosis for this admission?: Yes (4) Citrobacter infection Is this a current diagnosis for this admission?: Yes (5) Tremor Is this a current diagnosis for this admission?: Yes Plan: The tremor is most likely from bronchodilators
--- NOTE | 2018-05-15 18:18 | RADIOLOGY REPORT (SQ) ---
EXAM DESCRIPTION: MRI HEAD WITHOUT COMPLETED DATE/TIME: 05/15/2018 6:04 pm REASON FOR STUDY: Tremors/ R/O stroke, difficulty swallowing COMPARISON: None. TECHNIQUE: Multiplanar imaging includes non-contrasted T1, T2, FLAIR, and diffusion with ADC map seq uences. Images stored on PACS. LIMITATIONS: None. FINDINGS: ANATOMY: No anomalies. Normal vascular flow voids. Pituitary fossa normal. CSF SPACES: Normal in size and contour. No hemorrhage. CEREBRUM: Sulci and gyri normal in size and contour. Normal white matter signal on FLAIR imaging. No evidence of hemorrhage, mass, or extraaxial fluid collection. POSTERIOR FOSSA: No signal alteration. No hemorrhage. No edema, masses or mass effect. Internal norberto tory canals, cerebello-pontine angles, mastoids normal. DIFFUSION IMAGING: Negative for acute or sub-acute infarction. ORBITS: No masses. Globes normal. PARANASAL SINUSES: Mucous retention cysts are present in both maxillary sinuses. OTHER: No other significant finding. IMPRESSION: NORMAL MRI OF THE BRAIN WITHOUT INTRAVENOUS GADOLINIUM CONTRAST. EVIDENCE OF ACUTE STROKE: NO. TECHNICAL DOCUMENTATION: JOB ID: [id number] [employer]- All Rights Reserved Reading location - IP/workstation name: [email or web address]
[2018-05-15 18:22] LABS: HEMATOCRIT 24.3 % (36.0-47.0); HEMOGLOBIN 8.2 g/dL (12.0-15.5); MEAN CORPUSCULAR HEMOGLOBIN 33.5 pg (27.0-33.4); MEAN CORPUSCULAR VOLUME 99 fl (80-97); PLATELET COUNT 119 10^3/uL (150-450); RED BLOOD COUNT 2.46 10^6/uL (3.72-5.28); RED CELL DISTRIBUTION WIDTH 18.6 % (11.5-14.0); WHITE BLOOD COUNT 10.3 10^3/uL (4.0-10.5)
[2018-05-15 18:39] LABS: ALANINE AMINOTRANSFERASE 17 U/L (9-52); ALBUMIN 2.9 g/dL (3.5-5.0); ALKALINE PHOSPHATASE 84 U/L (38-126); ANION GAP 10 (5-19); ASPARTATE AMINO TRANSFERASE 23 U/L (14-36); BILIRUBIN,TOTAL 1.5 mg/dL (0.2-1.3); BLOOD UREA NITROGEN 39 mg/dL (7-20); CALCIUM 8.8 mg/dL (8.4-10.2); CARBON DIOXIDE 26 mmol/L (22-30); CHLORIDE 111 mmol/L (98-107); GLUCOSE 105 mg/dL (75-110); POTASSIUM 3.4 mmol/L (3.6-5.0); SODIUM 146.5 mmol/L (137-145)
[2018-05-15 18:43] LABS: ABSOLUTE MONOCYTES # (MANUAL) 0.2 10^3/uL (0.1-1.4); BAND NEUTROPHILS % (MANUAL) 2 % (3-5); BASOPHILS % (MANUAL) 0 % (0-2); EOSINOPHILS % (MANUAL) 1 % (0-6); LYMPHOCYTES % (MANUAL) 29 % (13-45); MONOCYTES % (MANUAL) 2 % (3-13); NUCLEATED RED BLOOD CELLS 3 /100 WBC (0); SEGMENTED NEUTROPHILS % (MAN) 66 % (42-78); TOTAL CELLS COUNTED 100
[2018-05-15 18:46] LABS: ANISOCYTOSIS 1+; OVALOCYTES SLIGHT; PLATELET COMMENT ADEQUATE; PLATELET LARGE PRESENT; POIKILOCYTOSIS SLIGHT; POLYCHROMASIA SLIGHT; TARGET CELLS 1+; TOXIC VACUOLATION PRESENT
[2018-05-15 18:48] LABS: TOXIC GRANULATION 1+
[2018-05-16] MEDS: NYSTATIN/DEXAMETH/DIPHEN SUSP 120 ML PO SCH ×5 (06:12→20:55)
[2018-05-16] MEDS: NORMAL SALINE 1000 ML 1,000 ML IV PRN (08:14)
[2018-05-16] MEDS: DOCUSATE SODIUM 100 MG CAPSULE PO SCH (09:06)
[2018-05-16] MEDS: SODIUM BICARBONATE 650 MG TABLET PO SCH ×2 (09:06→22:11)
[2018-05-16] MEDS: LOSARTAN POTASSIUM 50 MG TABLET PO SCH (09:06)
[2018-05-16] MEDS: GUAIFENESIN 600 MG TABLET.SA PO SCH ×2 (09:06→17:53)
[2018-05-16] MEDS: BUSPIRONE HCL 10 MG TABLET PO SCH ×2 (09:07→17:53)
[2018-05-16] MEDS: METOPROLOL SUCCINATE 50 MG TAB.SR.24H PO SCH (09:07)
[2018-05-16 09:08] LABS: HEMATOCRIT 24.1 % (36.0-47.0); HEMOGLOBIN 8.1 g/dL (12.0-15.5); MEAN CORPUSCULAR HEMOGLOBIN 33.3 pg (27.0-33.4); MEAN CORPUSCULAR HGB CONC 33.7 g/dL (32.0-36.0); MEAN CORPUSCULAR VOLUME 99 fl (80-97); PLATELET COUNT 115 10^3/uL (150-450); RED BLOOD COUNT 2.44 10^6/uL (3.72-5.28); RED CELL DISTRIBUTION WIDTH 18.8 % (11.5-14.0)
[2018-05-16] MEDS: CEFEPIME 2 GM/D5W RTU 2 GM/50 ML RTUPB IV SCH ×2 (09:09→22:07)
[2018-05-16 09:30] LABS: ALANINE AMINOTRANSFERASE 20 U/L (9-52); ALBUMIN 2.8 g/dL (3.5-5.0); ALKALINE PHOSPHATASE 85 U/L (38-126); ANION GAP 14 (5-19); ASPARTATE AMINO TRANSFERASE 20 U/L (14-36); BILIRUBIN,DIRECT 0.7 mg/dL (0.0-0.4); BILIRUBIN,TOTAL 1.1 mg/dL (0.2-1.3); BLOOD UREA NITROGEN 37 mg/dL (7-20); CALCIUM 8.9 mg/dL (8.4-10.2); CARBON DIOXIDE 24 mmol/L (22-30); CHLORIDE 113 mmol/L (98-107); GLUCOSE 87 mg/dL (75-110); POTASSIUM 3.6 mmol/L (3.6-5.0); TOTAL PROTEIN 5.8 g/dL (6.3-8.2)
[2018-05-16 09:46] LABS: ABSOLUTE LYMPHOCYTES# (MANUAL) 3.1 10^3/uL (0.5-4.7); ABSOLUTE MONOCYTES # (MANUAL) 0.2 10^3/uL (0.1-1.4); ABSOLUTE NEUTROPHILS# (MANUAL) 6.4 10^3/uL (1.7-8.2); BAND NEUTROPHILS % (MANUAL) 3 % (3-5); BASOPHILS % (MANUAL) 0 % (0-2); EOSINOPHILS % (MANUAL) 3 % (0-6); LYMPHOCYTES % (MANUAL) 30 % (13-45); MONOCYTES % (MANUAL) 2 % (3-13); NUCLEATED RED BLOOD CELLS 5 /100 WBC (0); SEGMENTED NEUTROPHILS % (MAN) 60 % (42-78); TOTAL CELLS COUNTED 100
[2018-05-16 09:47] LABS: PROMYELOCYTES % (MANUAL) 1 % (0)
[2018-05-16 10:25] LABS: ANISOCYTOSIS 2+; PLATELET CLUMPS PRESENT; ROULEAUX 1+; TARGET CELLS 2+; TOXIC GRANULATION 2+; TOXIC VACUOLATION PRESENT
[2018-05-16 10:26] LABS: ACANTHOCYTES SLIGHT; HOWELL-JOLLY BODIES PRESENT; OVALOCYTES 1+; POIKILOCYTOSIS 1+; SCHISTOCYTES SLIGHT
[2018-05-16 15:28] LABS: ARTERIAL BLOOD BASE EXCESS 1.4 mmol/L; ARTERIAL BLOOD FIO2 3L; ARTERIAL BLOOD H2CO3 1.31 mmol/L (1.05-1.35); ARTERIAL BLOOD HCO3 26.3 mmol/L (20-24); ARTERIAL BLOOD O2 SATURATION 98.2 % (94-98); ARTERIAL BLOOD PCO2 43.4 mmHg (35-45); ARTERIAL BLOOD PO2 116.1 mmHg (80-100); ARTERIAL BLOOD TOTAL CO2 27.6 mmol/L (21-25)
[2018-05-16] MEDS: MONTELUKAST SODIUM 10 MG TABLET PO SCH (17:53)
--- NOTE | 2018-05-16 20:16 | PDOC PROGRESS REPORT ---
Subjective Progress Note for:: 05/16/18 Subjective:: Patient's condition is very poor, she is not talking, not responding to questions, though she is alert, she also has tremors, I suspect she may have herpes encephalitis, she has a history of herpes genitalis, in the setting of depressed immune system ,with [employer] symptoms, we will request lumbar puncture, also start empiric IV acyclovir Reason For Visit: PNEUMONIA Physical Exam Vital Signs: Temp Pulse Resp BP Pulse Ox 98.1 F 66 16 176/90 H 99 05/16/18 15:27 05/16/18 15:27 05/16/18 15:27 05/16/18 16:37 05/16/18 16:50 Pulse Oximeter Continuous Start: 05/11/18 08: 43 Freq: RTQ4 Status: Active Document 05/16/18 16:50 MED (Rec: 05/16/18 16:51 MED [email or web address]) Pulse Oximetry Assessment Oxygen Saturation (92-100) 99 Oxygen Flow Rate (L/min) 3 Oxygen Delivery Method Nasal Cannula Fraction of Inspired Oxygen (FIO2) 32 Equipment Usage Equipment in Use Continuous SpO2 Machine # 3 Intake & Output 05/15/18 05/16/18 05/17/18 06:59 06:59 06:59 Intake Total 2223 1414 188 Output Total 550 100 Balance 1673 1314 188 Weight 50.8 kg 51.3 kg General appearance: PRESENT: no acute distress Eye exam: PRESENT: PERRLA Respiratory exam: PRESENT: rhonchi Cardiovascular exam: PRESENT: +S1, +S2 GI/Abdominal exam: PRESENT: soft Neurological exam: PRESENT: alert Results Laboratory Results: 05/16/18 08:45 05/16/18 08:45 05/16/18 05/16/18 05/16/18 08:45 08:45 15:11 WBC 10.0 RBC 2.44 L Hgb 8.1 L Hct 24.1 L MCV 99 H MCH 33.3 MCHC 33.7 RDW 18.8 H Plt Count 115 L Seg Neutrophils % Not Reportable Lymphocytes % Not Reportable Monocytes % Not Reportable Eosinophils % Not Reportable Basophils % Not Reportable Absolute Neutrophils Not Reportable Absolute Lymphocytes Not Reportable Absolute Monocytes Not Reportable Absolute Eosinophils Not Reportable Absolute Basophils Not Reportable Carbonic Acid 1.31 HCO3/H2CO3 Ratio 20:1 ABG pH 7.40 ABG pCO2 43.4 ABG pO2 116.1 H ABG HCO3 26.3 H ABG O2 Saturation 98.2 H ABG Base Excess 1.4 FiO2 3L Sodium 151.0 H Potassium 3.6 Chloride 113 H Carbon Dioxide 24 Anion Gap 14 BUN 37 H Creatinine 2.13 H Est GFR ( Amer) 28 L Est GFR (Non-Af Amer) 23 L Glucose 87 Calcium 8.9 Total Bilirubin 1.1 AST 20 ALT 20 Alkaline Phosphatase 85 Total Protein 5.8 L Albumin 2.8 L Impressions: Chest X-Ray 05/10/18 13:00 IMPRESSION: Interval decrease in infiltrate within the right middle and right lower lobes. Interval decreased right pleural thickening or effusion. Chronic bilateral interstitial changes. Knee X-Ray 05/10/18 13:01 IMPRESSION: 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 Chest CT 05/10/18 15:25 IMPRESSION: Right middle lobe and lower lobe pneumonia associated with bronchiectasis. This appears more extensive than on the earlier CT. Limited bronchiectasis in the lingula. Cannot exclude a limited pneumonia in the lingula. Lung Scan-VQ NM 05/10/18 15:25 IMPRESSION: For activity on ventilation and perfusion at the right lung base correlates with dense consolidation in the right middle and lower lobe on CT chest 05/10/2018. This is a triple match and is low probability for pulmonary embolus on PIOPED criteria. Head CT 05/15/18 00:00 IMPRESSION: No acute intracranial abnormality. EVIDENCE OF ACUTE STROKE: NO. Head MRI 05/15/18 00:00 IMPRESSION: NORMAL MRI OF THE BRAIN WITHOUT INTRAVENOUS GADOLINIUM CONTRAST. EVIDENCE OF ACUTE STROKE: NO. Assessment & Plan - Diagnosis (1) Acute hypoxemic respiratory failure Is this a current diagnosis for this admission?: Yes (2) Pseudomonas pneumonia Qualifiers: Laterality: unspecified laterality Lung location: unspecified part of lung Qualified Code(s): J15.1 - Pneumonia due to Pseudomonas Is this a current diagnosis for this admission?: Yes (3) CLL (chronic lymphocytic leukemia) Is this a current diagnosis for this admission?: Yes (4) Citrobacter infection Is this a current diagnosis for this admission?: Yes (5) Tremor Is this a current diagnosis for this admission?: Yes (6) Encephalopathy Is this a current diagnosis for this admission?: Yes Plan: MRI brain is not showing any significant pathology. Lumbar puncture ordered, EEG ordered, start empiric acyclovir (7) Essential (primary) hypertension Is this a current diagnosis for this admission?: Yes Plan: Blood pressure elevated, DC IV normal saline, start losartan, increase metoprolol
[2018-05-16 20:54] LABS: INTERNATIONAL RATION (INR) 1.07; PROTHROMBIN TIME 14.5 SEC (11.4-15.4)
[2018-05-16 20:55] LABS: PARTIAL THROMBOPLASTIN TIME 43.6 SEC (23.5-35.8)
[2018-05-16] MEDS: ACYCLOVIR SODIUM 500 MG in NORMAL SALINE 100 ML IV SCH (20:55)
[2018-05-16] MEDS: SERTRALINE HCL 50 MG TABLET PO SCH (20:56)
[2018-05-16] MEDS: DEXTROSE 5%-WATER 1000 ML 1,000 ML IV PRN (22:57)
[2018-05-17] MEDS: ACYCLOVIR SODIUM 500 MG in NORMAL SALINE 100 ML IV SCH (05:58)
[2018-05-17] MEDS: NYSTATIN/DEXAMETH/DIPHEN SUSP 120 ML PO SCH ×4 (06:04→19:20)
[2018-05-17 06:44] LABS: HEMATOCRIT 24.7 % (36.0-47.0); HEMOGLOBIN 8.4 g/dL (12.0-15.5); MEAN CORPUSCULAR HEMOGLOBIN 33.5 pg (27.0-33.4); MEAN CORPUSCULAR HGB CONC 33.9 g/dL (32.0-36.0); MEAN CORPUSCULAR VOLUME 99 fl (80-97); PLATELET COUNT 122 10^3/uL (150-450); RED BLOOD COUNT 2.51 10^6/uL (3.72-5.28); RED CELL DISTRIBUTION WIDTH 19.3 % (11.5-14.0); WHITE BLOOD COUNT 9.5 10^3/uL (4.0-10.5)
[2018-05-17 06:58] LABS: ALANINE AMINOTRANSFERASE 12 U/L (9-52); ALKALINE PHOSPHATASE 85 U/L (38-126); ANION GAP 11 (5-19); ASPARTATE AMINO TRANSFERASE 20 U/L (14-36); BILIRUBIN,DIRECT 0.7 mg/dL (0.0-0.4); BLOOD UREA NITROGEN 42 mg/dL (7-20); CALCIUM 9.3 mg/dL (8.4-10.2); CARBON DIOXIDE 27 mmol/L (22-30); CHLORIDE 113 mmol/L (98-107); GLUCOSE 96 mg/dL (75-110); SODIUM 150.7 mmol/L (137-145)
[2018-05-17 07:12] LABS: ABSOLUTE LYMPHOCYTES# (MANUAL) 3.8 10^3/uL (0.5-4.7); ABSOLUTE MONOCYTES # (MANUAL) 0.2 10^3/uL (0.1-1.4); ABSOLUTE NEUTROPHILS# (MANUAL) 5.3 10^3/uL (1.7-8.2); ANISOCYTOSIS 2+; BASOPHILS % (MANUAL) 0 % (0-2); EOSINOPHILS % (MANUAL) 2 % (0-6); LYMPHOCYTES % (MANUAL) 40 % (13-45); MONOCYTES % (MANUAL) 2 % (3-13); NUCLEATED RED BLOOD CELLS 3 /100 WBC (0); SCHISTOCYTES 1+; SEGMENTED NEUTROPHILS % (MAN) 56 % (42-78); TOTAL CELLS COUNTED 100
[2018-05-17 07:13] LABS: HOWELL-JOLLY BODIES PRESENT; PLATELET CLUMPS PRESENT; PLATELET COMMENT ADEQUATE; PLATELET LARGE PRESENT; TOXIC VACUOLATION PRESENT
[2018-05-17] MEDS ORDERED: SUCCINYLCHOLINE CHLORIDE INJ 200 MG/10 ML VIAL ONE (09:16)
[2018-05-17] MEDS: CEFEPIME 2 GM/D5W RTU 2 GM/50 ML RTUPB IV SCH (11:59)
[2018-05-17 12:18] LABS: PATH REVIEW PATHOLOGIST REVIEWED
[2018-05-17] MEDS: BUSPIRONE HCL 10 MG TABLET PO SCH (12:19)
[2018-05-17] MEDS: DOCUSATE SODIUM 100 MG CAPSULE PO SCH (12:19)
[2018-05-17] MEDS: LOSARTAN POTASSIUM 50 MG TABLET PO SCH (12:20)
[2018-05-17] MEDS: METOPROLOL SUCCINATE 50 MG TAB.SR.24H PO SCH (12:21)
[2018-05-17] MEDS: SODIUM BICARBONATE 650 MG TABLET PO SCH (12:21)
[2018-05-17] MEDS: GUAIFENESIN 600 MG TABLET.SA PO SCH (12:21)
[2018-05-17] MEDS: SERTRALINE HCL 50 MG TABLET PO SCH (12:21)
--- NOTE | 2018-05-17 13:35 | EEG PRO FEE REPORT ---
EEG INTERPRETATION PATIENT NAME: JANET ABBOTT ROOM#: [id number] ORDER#: [id number] DATE OF STUDY: 05/17/2018 : 1945 REFERRING MD: ERUM HENAO M.D. MEDICATIONS: Tylenol, BuSpar,Cefepime, Colace,Guaifenesin, Cozaar, Toprol, Singulair, Zoloft History This is a 72 year old right handed woman admitted with pneumonia with a history of paroxysmal atrial fibrillation, hypertension, COPD, splenectomy, osteoarthritis, lymphoma, chronic lymphocytic leukemia, gallbladder surgery. She is currently not talking and has new onset of tremors. This EEG was requested for aphasia and tremors. EEG Interpretation This EEG was recorded in the awake state only. The awake EEG is characterized by disorganization without a posterior dominant rhythm or reactivity to active eye opening or closing. There was significant muscle artifact throughout the recording impairing interpretation. Photic stimulation resulted in no significant changes. There were generalized periodic discharges {GPDs} with a triphasic wave appearance throughout the recording. This was monotonous. The EKG showed a mainly regular rhythm. EEG Classification 1. Generalized periodic discharges, triphasic EEG Impression This EEG is severely abnormal. Generalized periodic discharges may be associated with nonconvulsive seizures and toxic-metabolic dysfunction. Treatment for nonconvulsive seizures and investigation for toxic-metabolic dysfunction including sepsis should be considered. The artifact impaired interpretation. These findings were discussed via phone with the ordering physician. INTERPRETING PHYSICIAN: JANET ARAIZA M.D. /: MTEFFT TT: 1305 ID: [id number] /: [id number] TD: [id number] JOB: [id number] cc:Mia LA M.D. > MTDD
[2018-05-17] MEDS ORDERED: PHENYTOIN SODIUM INJ/PF 250 MG/5 ML SDV IV ONE (14:00)
[2018-05-17] MEDS ORDERED: PHENYTOIN SODIUM 1,000 MG in NORMAL SALINE 250 ML IV ONE (14:15)
[2018-05-17] MEDS ORDERED: LEVETIRACETAM 500 MG TABLET PO SCH (14:15)
[2018-05-17] MEDS ORDERED: LORAZEPAM INJ 2 MG/1 ML VIAL ONE ×2 (15:14→16:15)
--- NOTE | 2018-05-17 15:39 | RADIOLOGY REPORT (SQ) ---
EXAM DESCRIPTION: LUMBAR PUNCTURE; FLUORO/NEEDLE PLACEMENT/SPINE COMPLETED DATE/TIME: 05/17/2018 3:21 pm REASON FOR STUDY: aphasia ,tremors; AMS COMPARISON: MRI brain 05/15/2018 CT brain 05/15/2018 FLUOROSCOPY TIME: 40 seconds 2 digital fluoroscopic images saved to PACS. TECHNIQUE: Fluoroscopic guided lumbar puncture. LIMITATIONS: None. PROCEDURE: After written consent and assessment were obtained, the patient was brought into the fluo roscopy room and placed prone on the table. The patient's lower back was prepped in a sterile fashio n and an entry site was selected under live fluoroscopic guidance. The entry site was anesthetized wi th 3 mL of 1% lidocaine. A 22 gauge needle was advanced through the skin and into the thecal sac at t he right paracentral L2-3 level. After approximately 8 ml was drained, the needle was removed and a sterile bandage was placed of the site. Specimens were sent to the lab for testing. A fluoroscopic spot image was saved to PACS confirming level access. FINDINGS: Clear CSF Studies are pending. IMPRESSION: Lumbar puncture under fluoroscopy. No immediate complication. COMMENT: Patient medication list reviewed: Yes- Quality ID# [id number]:Eligible professional attests to doc umenting in the medical record they obtained, updated, or reviewed the patient's current medications. . Quality ID 145: Final reports for procedures using fluoroscopy that document radiation exposure eber johnie, or exposure time and number of fluorographic images (if radiation exposure indices are not avail able) TECHNICAL DOCUMENTATION: JOB ID: [id number] [employer]- All Rights Reserved Reading location - IP/workstation name: [facility]
--- NOTE | 2018-05-17 15:39 | RADIOLOGY REPORT (SQ) ---
EXAM DESCRIPTION: LUMBAR PUNCTURE; FLUORO/NEEDLE PLACEMENT/SPINE COMPLETED DATE/TIME: 05/17/2018 3:21 pm REASON FOR STUDY: aphasia ,tremors; AMS COMPARISON: MRI brain 05/15/2018 CT brain 05/15/2018 FLUOROSCOPY TIME: 40 seconds 2 digital fluoroscopic images saved to PACS. TECHNIQUE: Fluoroscopic guided lumbar puncture. LIMITATIONS: None. PROCEDURE: After written consent and assessment were obtained, the patient was brought into the fluo roscopy room and placed prone on the table. The patient's lower back was prepped in a sterile fashio n and an entry site was selected under live fluoroscopic guidance. The entry site was anesthetized wi th 3 mL of 1% lidocaine. A 22 gauge needle was advanced through the skin and into the thecal sac at t he right paracentral L2-3 level. After approximately 8 ml was drained, the needle was removed and a sterile bandage was placed of the site. Specimens were sent to the lab for testing. A fluoroscopic spot image was saved to PACS confirming level access. FINDINGS: Clear CSF Studies are pending. IMPRESSION: Lumbar puncture under fluoroscopy. No immediate complication. COMMENT: Patient medication list reviewed: Yes- Quality ID# [id number]:Eligible professional attests to doc umenting in the medical record they obtained, updated, or reviewed the patient's current medications. . Quality ID 145: Final reports for procedures using fluoroscopy that document radiation exposure eber johnie, or exposure time and number of fluorographic images (if radiation exposure indices are not avail able) TECHNICAL DOCUMENTATION: JOB ID: [id number] [employer]- All Rights Reserved Reading location - IP/workstation name: [facility]
[2018-05-17] MEDS ORDERED: LABETALOL HCL INJ 20 MG/4 ML DISP.SYRIN IV PRN (15:40)
[2018-05-17] MEDS ORDERED: LEVETIRACETAM 500 MG/NACL-ISO 500 MG/100 ML RTUPB IV SCH (15:45)
[2018-05-17] MEDS: LEVETIRACETAM 500 MG/NACL-ISO 500 MG/100 ML RTUPB IV SCH (15:54)
--- NOTE | 2018-05-17 15:54 | PDOC PROGRESS REPORT ---
Subjective Progress Note for:: 05/17/18 Subjective:: Patient was seen by the bedside she had lumbar puncture and EEG done today, EEG showed generalized periodic discharges suggesting seizure activity. She subsequently had a witnessed clonic tonic seizure activity on the floor, she was given a loading dose of Dilantin 1 g, Ativan 2 mg IV, Keppra 500 mg IV. She will be transferred to ICU for close monitoring because if she loses her airway she may need to be intubated. Reason For Visit: PNEUMONIA Physical Exam Vital Signs: Temp Pulse Resp BP Pulse Ox 97.6 F 106 H 16 146/109 H 96 05/17/18 11:45 05/17/18 11:45 05/17/18 11:45 05/17/18 11:45 05/17/18 12:00 Pulse Oximeter Continuous Start: 05/11/18 08: 43 Freq: RTQ4 Status: Active Document 05/17/18 12:00 [facility] (Rec: 05/17/18 12:00 [facility] [id number]) Pulse Oximetry Assessment Oxygen Saturation (92-100) 96 Oxygen Flow Rate (L/min) 2 Oxygen Delivery Method Nasal Cannula Equipment Usage Equipment in Use Continuous SpO2 Machine # 3 Intake & Output 05/16/18 05/17/18 05/18/18 06:59 06:59 06:59 Intake Total 1414 920 110 Output Total 100 Balance 1314 920 110 Weight 51.3 kg 48.7 kg Eye exam: PRESENT: PERRLA Respiratory exam: PRESENT: rhonchi Cardiovascular exam: PRESENT: +S1, +S2 GI/Abdominal exam: PRESENT: soft Neurological exam: PRESENT: altered Results Laboratory Results: 05/17/18 05:50 05/17/18 05:50 05/17/18 05/17/18 05:50 05:50 WBC 9.5 RBC 2.51 L Hgb 8.4 L Hct 24.7 L MCV 99 H MCH 33.5 H MCHC 33.9 RDW 19.3 H Plt Count 122 L Seg Neutrophils % Not Reportable Lymphocytes % Not Reportable Monocytes % Not Reportable Eosinophils % Not Reportable Basophils % Not Reportable Absolute Neutrophils Not Reportable Absolute Lymphocytes Not Reportable Absolute Monocytes Not Reportable Absolute Eosinophils Not Reportable Absolute Basophils Not Reportable Sodium 150.7 H Potassium 4.0 Chloride 113 H Carbon Dioxide 27 Anion Gap 11 BUN 42 H Creatinine 2.41 H Est GFR ( Amer) 24 L Est GFR (Non-Af Amer) 20 L Glucose 96 Calcium 9.3 Total Bilirubin 1.0 AST 20 ALT 12 Alkaline Phosphatase 85 Total Protein 6.0 L Albumin 3.0 L Impressions: Chest X-Ray 05/10/18 13:00 IMPRESSION: Interval decrease in infiltrate within the right middle and right lower lobes. Interval decreased right pleural thickening or effusion. Chronic bilateral interstitial changes. Knee X-Ray 05/10/18 13:01 IMPRESSION: 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 Chest CT 05/10/18 15:25 IMPRESSION: Right middle lobe and lower lobe pneumonia associated with bronchiectasis. This appears more extensive than on the earlier CT. Limited bronchiectasis in the lingula. Cannot exclude a limited pneumonia in the lingula. Lung Scan-VQ NM 05/10/18 15:25 IMPRESSION: For activity on ventilation and perfusion at the right lung base correlates with dense consolidation in the right middle and lower lobe on CT chest 05/10/2018. This is a triple match and is low probability for pulmonary embolus on PIOPED criteria. Head CT 05/15/18 00:00 IMPRESSION: No acute intracranial abnormality. EVIDENCE OF ACUTE STROKE: NO. Head MRI 05/15/18 00:00 IMPRESSION: NORMAL MRI OF THE BRAIN WITHOUT INTRAVENOUS GADOLINIUM CONTRAST. EVIDENCE OF ACUTE STROKE: NO. Guidance Fluoroscopy 05/17/18 00:00 IMPRESSION: Lumbar puncture under fluoroscopy. No immediate complication. Lumbar Puncture 05/17/18 00:00 IMPRESSION: Lumbar puncture under fluoroscopy. No immediate complication. Assessment & Plan - Diagnosis (1) Acute hypoxemic respiratory failure Is this a current diagnosis for this admission?: Yes Plan: Patient developed acute respiratory failure requiring trach intubation and mechanical ventilation, change antibiotic to imipenem because of likelihood of aspiration (2) Pseudomonas pneumonia Qualifiers: Laterality: unspecified laterality Lung location: unspecified part of lung Qualified Code(s): J15.1 - Pneumonia due to Pseudomonas Is this a current diagnosis for this admission?: Yes (3) CLL (chronic lymphocytic leukemia) Is this a current diagnosis for this admission?: Yes (4) Citrobacter infection Is this a current diagnosis for this admission?: Yes (5) Tremor Is this a current diagnosis for this admission?: Yes (6) Encephalopathy Is this a current diagnosis for this admission?: Yes (7) Essential (primary) hypertension Is this a current diagnosis for this admission?: Yes (8) Seizure Is this a current diagnosis for this admission?: Yes Plan: This is a new onset seizure, she was empirically started 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 (9) Hypotension Qualifiers: Hypotension type: unspecified hypotension type Qualified Code(s): I95.9 - Hypotension, unspecified Is this a current diagnosis for this admission?: Yes Plan: Start norepinephrine
[2018-05-17 16:20] LABS: APPEARANCE ALL TUBES CLEAR; APPEARANCE TUBE 1 CLEAR; APPEARANCE TUBE 2 CLEAR; APPEARANCE TUBE 3 CLEAR; APPEARANCE TUBE 4 CLEAR; COLOR ALL TUBES COLORLESS; COLOR TUBE 1 COLORLESS; COLOR TUBE 2 COLORLESS; COLOR TUBE 3 COLORLESS; COLOR TUBE 4 COLORLESS; CSF TUBE NUMBER 2
[2018-05-17 16:22] LABS: RED BLOOD CELL,CSF 360 /uL (0-10); WHITE BLOOD CELL,CSF 3 /uL (0-5)
[2018-05-17 16:25] LABS: H. INFLUENZAE TYPE B AG NEGATIVE (NEGATIVE); S. PNEUMONIAE AG NEGATIVE (NEGATIVE); STREP. GROUP B AG NEGATIVE (NEGATIVE)
[2018-05-17 16:35] LABS: GLUCOSE,CSF 56 mg/dL (40-70); PROTEIN,CSF 38 mg/dL (12-60)
[2018-05-17 16:38] LABS: ARTERIAL BLOOD BASE EXCESS -3.6 mmol/L; ARTERIAL BLOOD H2CO3 1.54 mmol/L (1.05-1.35); ARTERIAL BLOOD HCO3 23.2 mmol/L (20-24); ARTERIAL BLOOD O2 SATURATION 95.4 % (94-98); ARTERIAL BLOOD PCO2 51.1 mmHg (35-45); ARTERIAL BLOOD PH 7.27 (7.35-7.45); ARTERIAL BLOOD PO2 87.6 mmHg (80-100); ARTERIAL BLOOD TOTAL CO2 24.7 mmol/L (21-25)
[2018-05-17 16:40] LABS: ARTERIAL BLOOD FIO2 4L
[2018-05-17] MEDS ORDERED: PHARMACY COMMUNICATION ORDER MC NR (16:45)
[2018-05-17 17:07] LABS: HEMATOCRIT 22.5 % (36.0-47.0); MEAN CORPUSCULAR HEMOGLOBIN 33.5 pg (27.0-33.4); MEAN CORPUSCULAR HGB CONC 33.4 g/dL (32.0-36.0); MEAN CORPUSCULAR VOLUME 100 fl (80-97); PLATELET COUNT 110 10^3/uL (150-450); RED BLOOD COUNT 2.25 10^6/uL (3.72-5.28); RED CELL DISTRIBUTION WIDTH 18.9 % (11.5-14.0); WHITE BLOOD COUNT 10.7 10^3/uL (4.0-10.5)
[2018-05-17 17:14] LABS: ANION GAP 13 (5-19); BLOOD UREA NITROGEN 44 mg/dL (7-20); CALCIUM 8.5 mg/dL (8.4-10.2); CARBON DIOXIDE 23 mmol/L (22-30); CHLORIDE 116 mmol/L (98-107); GLUCOSE 104 mg/dL (75-110); POTASSIUM 3.3 mmol/L (3.6-5.0); SODIUM 151.8 mmol/L (137-145)
[2018-05-17] MEDS ORDERED: ACETAMINOPHEN 325 MG TABLET NG PRN (17:30)
[2018-05-17] MEDS ORDERED: NOREPINEPHRINE BITARTRATE INJ/PF 4 MG/4 ML SDV IV ONE (17:39)
[2018-05-17] MEDS: DEXTROSE 5%-WATER 250 ML with NOREPINEPHRINE BITARTRATE 4 MG IV PRN ×2 (17:45)
[2018-05-17 17:46] LABS: ABSOLUTE LYMPHOCYTES# (MANUAL) 2.8 10^3/uL (0.5-4.7); ABSOLUTE MONOCYTES # (MANUAL) 0.2 10^3/uL (0.1-1.4); ABSOLUTE NEUTROPHILS# (MANUAL) 7.7 10^3/uL (1.7-8.2); BASOPHILS % (MANUAL) 0 % (0-2); EOSINOPHILS % (MANUAL) 0 % (0-6); LYMPHOCYTES % (MANUAL) 26 % (13-45); MONOCYTES % (MANUAL) 2 % (3-13); NUCLEATED RED BLOOD CELLS 5 /100 WBC (0); SEGMENTED NEUTROPHILS % (MAN) 72 % (42-78); TOTAL CELLS COUNTED 100
[2018-05-17 17:48] LABS: ANISOCYTOSIS 1+; OVALOCYTES SLIGHT; PLATELET COMMENT ADEQUATE; POIKILOCYTOSIS SLIGHT; TARGET CELLS SLIGHT
[2018-05-17 17:50] LABS: TOXIC VACUOLATION PRESENT
[2018-05-17 17:51] LABS: PLATELET LARGE PRESENT; SCHISTOCYTES SLIGHT
[2018-05-17 17:53] LABS: HEMOGLOBIN 7.5 g/dL (12.0-15.5)
[2018-05-17] MEDS ORDERED: PROPOFOL 1,000 MG/100 ML INFUS..BTL IV ONE (17:53)
[2018-05-17] MEDS: PROPOFOL 1,000 MG/100 ML INFUS..BTL IV PRN ×2 (18:00→22:01)
--- NOTE | 2018-05-17 18:36 | RADIOLOGY REPORT (SQ) ---
EXAM DESCRIPTION: XR CHEST 1 VIEW COMPLETED DATE/TME: 05/17/2018 18:02 CLINICAL HISTORY: 72 years, Female, ET tube Placement Compared to prior chest CT dated 05/10/2018. Findings: Endotracheal tube is in appropriate placement about 2 cm above the rajendra. Heart is moderately enlarged. Right chest port is in place. Enteric tube is in place with tip below the diaphragm in the stomach. Mild right basilar airspace disease is noted. IMPRESSION: Multiple lines and tubes of life-support in place. Right basilar pneumonia, similar to prior studies.
--- NOTE | 2018-05-17 18:48 | RADIOLOGY REPORT (SQ) ---
EXAM DESCRIPTION: XR ABDOMEN 1 VIEW (KUB) COMPLETED DATE/TME: 05/17/2018 16:46 CLINICAL HISTORY: 72 years, Female, Check Placement of NG Tube Findings: Enteric tube is in place with tip below the diaphragm in the stomach. There are mildly dilated loops of small bowel. No free intraperitoneal air noted. IMPRESSION: Enteric tube is in place.
[2018-05-17] MEDS: DEXTROSE 5%-WATER 1000 ML 1,000 ML IV PRN (19:19)
[2018-05-17 19:43] LABS: APPEARANCE,URINE CLEAR; BILIRUBIN,URINE NEGATIVE (NEGATIVE); COLOR,URINE STRAW; GLUCOSE, URINE NEGATIVE (NEGATIVE); KETONES,URINE NEGATIVE (NEGATIVE); LEUKOCYTE ESTERASE,URINE NEGATIVE (NEGATIVE); NITRITE,URINE NEGATIVE (NEGATIVE); PROTEIN,URINE 30 mg/dL (NEGATIVE); URINE SPECIFIC GRAVITY 1.008; UROBILINOGEN,URINE NEGATIVE mg/dL (<2.0)
[2018-05-17 19:43] LABS: ARTERIAL BLOOD BASE EXCESS -4.6 mmol/L; ARTERIAL BLOOD H2CO3 1.28 mmol/L (1.05-1.35); ARTERIAL BLOOD HCO3 21.4 mmol/L (20-24); ARTERIAL BLOOD O2 SATURATION 97.7 % (94-98); ARTERIAL BLOOD PCO2 42.5 mmHg (35-45); ARTERIAL BLOOD PH 7.32 (7.35-7.45); ARTERIAL BLOOD PO2 111.8 mmHg (80-100); ARTERIAL BLOOD TOTAL CO2 22.7 mmol/L (21-25)
[2018-05-17 19:44] LABS: ARTERIAL BLOOD FIO2 60%
[2018-05-17] MEDS ORDERED: IMIPENEM/CILASTATIN SODIUM 1,000 MG in NORMAL SALINE 250 ML IV SCH (20:15)
[2018-05-17 20:23] LABS: MEAN CORPUSCULAR HEMOGLOBIN 33.8 pg (27.0-33.4); MEAN CORPUSCULAR HGB CONC 33.6 g/dL (32.0-36.0); MEAN CORPUSCULAR VOLUME 101 fl (80-97); RED BLOOD COUNT 2.29 10^6/uL (3.72-5.28); RED CELL DISTRIBUTION WIDTH 19.2 % (11.5-14.0); WHITE BLOOD COUNT 9.6 10^3/uL (4.0-10.5)
[2018-05-17 20:44] LABS: ALANINE AMINOTRANSFERASE 58 U/L (9-52); ALBUMIN 2.7 g/dL (3.5-5.0); ALKALINE PHOSPHATASE 101 U/L (38-126); ANION GAP 15 (5-19); ASPARTATE AMINO TRANSFERASE 176 U/L (14-36); BILIRUBIN,TOTAL 1.3 mg/dL (0.2-1.3); BLOOD UREA NITROGEN 43 mg/dL (7-20); CALCIUM 8.4 mg/dL (8.4-10.2); CARBON DIOXIDE 20 mmol/L (22-30); CHLORIDE 115 mmol/L (98-107); GLUCOSE 196 mg/dL (75-110); POTASSIUM 3.4 mmol/L (3.6-5.0); SODIUM 149.8 mmol/L (137-145); TOTAL PROTEIN 5.4 g/dL (6.3-8.2)
[2018-05-17] MEDS ORDERED: NORMAL SALINE 1000 ML 1,000 ML IV ONE (20:45)
[2018-05-17 20:46] LABS: PLATELET COUNT 99 10^3/uL (150-450)
[2018-05-17 20:52] LABS: ABSOLUTE LYMPHOCYTES# (MANUAL) 1.9 10^3/uL (0.5-4.7); ABSOLUTE MONOCYTES # (MANUAL) 0.1 10^3/uL (0.1-1.4); ABSOLUTE NEUTROPHILS# (MANUAL) 7.5 10^3/uL (1.7-8.2); BAND NEUTROPHILS % (MANUAL) 1 % (3-5); BASOPHILS % (MANUAL) 0 % (0-2); EOSINOPHILS % (MANUAL) 1 % (0-6); LYMPHOCYTES % (MANUAL) 20 % (13-45); METAMYELOCYTES % (MANUAL) 1 % (0); MONOCYTES % (MANUAL) 1 % (3-13); NUCLEATED RED BLOOD CELLS 3 /100 WBC (0); SEGMENTED NEUTROPHILS % (MAN) 76 % (42-78); TOTAL CELLS COUNTED 100
[2018-05-17 20:53] LABS: ANISOCYTOSIS 2+; BURR CELLS SLIGHT; OVALOCYTES SLIGHT; PLATELET COMMENT DECREASED; POIKILOCYTOSIS SLIGHT; TARGET CELLS SLIGHT
[2018-05-17 20:55] LABS: SCHISTOCYTES SLIGHT; TOXIC VACUOLATION PRESENT
[2018-05-17 20:59] LABS: HEMOGLOBIN 7.7 g/dL (12.0-15.5)
[2018-05-17 21:00] LABS: PLATELET LARGE PRESENT
[2018-05-17 21:11] LABS: D-DIMER 1.07 ug/mL (0.00-0.50)
[2018-05-17] MEDS ORDERED: MAGNESIUM SULFATE PF/INJ 40 MEQ/10 ML SDV ONE (21:38)
[2018-05-17] MEDS ORDERED: EPINEPHRINE INJ 1 MG/10 ML DISP.SYRIN ONE (21:38)
[2018-05-17] MEDS: IMIPENEM/CILASTATIN SODIUM 500 MG in NORMAL SALINE 100 ML IV SCH (21:55)
[2018-05-17] MEDS ORDERED: CEFEPIME 2 GM/D5W RTU 2 GM/50 ML RTUPB IV SCH (22:00)
[2018-05-17] MEDS: POTASSIUM CHLORIDE 20 MEQ/50 ML RTU IV SCH (22:01)
[2018-05-17] MEDS ORDERED: MIDAZOLAM HCL 50 MG/100 ML RTUINJ ONE (23:02)
[2018-05-17] MEDS: MIDAZOLAM HCL 50 MG/100 ML RTUINJ IV PRN (23:05)
[2018-05-18] MEDS: POTASSIUM CHLORIDE 20 MEQ/50 ML RTU IV SCH ×3 (00:07→12:37)
[2018-05-18] MEDS ORDERED: HYDRALAZINE HCL INJ/PF 20 MG/1 ML SDV IV PRN (02:21)
[2018-05-18] MEDS: LEVETIRACETAM 500 MG/NACL-ISO 500 MG/100 ML RTUPB IV SCH ×2 (05:38→17:07)
[2018-05-18] MEDS: ACYCLOVIR SODIUM 500 MG in NORMAL SALINE 100 ML IV SCH (05:39)
[2018-05-18 06:19] LABS: HEMATOCRIT 22.6 % (36.0-47.0); MEAN CORPUSCULAR HEMOGLOBIN 33.8 pg (27.0-33.4); MEAN CORPUSCULAR HGB CONC 34.4 g/dL (32.0-36.0); MEAN CORPUSCULAR VOLUME 98 fl (80-97); RED CELL DISTRIBUTION WIDTH 19.3 % (11.5-14.0); WHITE BLOOD COUNT 9.6 10^3/uL (4.0-10.5)
[2018-05-18 06:23] LABS: ARTERIAL BLOOD BASE EXCESS -3.1 mmol/L; ARTERIAL BLOOD H2CO3 0.78 mmol/L (1.05-1.35); ARTERIAL BLOOD HCO3 19.5 mmol/L (20-24); ARTERIAL BLOOD O2 SATURATION 98.5 % (94-98); ARTERIAL BLOOD PCO2 25.9 mmHg (35-45); ARTERIAL BLOOD PO2 112.2 mmHg (80-100); ARTERIAL BLOOD TOTAL CO2 20.3 mmol/L (21-25)
[2018-05-18 06:24] LABS: ARTERIAL BLOOD FIO2 30%
[2018-05-18 06:29] LABS: ANION GAP 14 (5-19); BLOOD UREA NITROGEN 41 mg/dL (7-20); CALCIUM 8.5 mg/dL (8.4-10.2); CARBON DIOXIDE 19 mmol/L (22-30); CHLORIDE 114 mmol/L (98-107); GLUCOSE 140 mg/dL (75-110); POTASSIUM 3.3 mmol/L (3.6-5.0); SODIUM 147.2 mmol/L (137-145)
[2018-05-18 06:34] LABS: D-DIMER 7.17 ug/mL (0.00-0.50)
[2018-05-18 07:18] LABS: HEMOGLOBIN 7.8 g/dL (12.0-15.5); PLATELET COUNT 87 10^3/uL (150-450)
[2018-05-18 07:21] LABS: ABSOLUTE LYMPHOCYTES# (MANUAL) 2.3 10^3/uL (0.5-4.7); ABSOLUTE MONOCYTES # (MANUAL) 0.1 10^3/uL (0.1-1.4); ABSOLUTE NEUTROPHILS# (MANUAL) 7.2 10^3/uL (1.7-8.2); BASOPHILS % (MANUAL) 0 % (0-2); EOSINOPHILS % (MANUAL) 0 % (0-6); LYMPHOCYTES % (MANUAL) 24 % (13-45); MONOCYTES % (MANUAL) 1 % (3-13); NUCLEATED RED BLOOD CELLS 3 /100 WBC (0); SEGMENTED NEUTROPHILS % (MAN) 75 % (42-78); TOTAL CELLS COUNTED 100
[2018-05-18 07:22] LABS: ANISOCYTOSIS 1+; PLATELET COMMENT DECREASED; POLYCHROMASIA 1+
--- NOTE | 2018-05-18 08:14 | RADIOLOGY REPORT (SQ) ---
EXAM DESCRIPTION: CHEST SINGLE VIEW COMPLETED DATE/TIME: 05/18/2018 6:46 am REASON FOR STUDY: PNA COMPARISON: 05/17/2018 and earlier EXAM PARAMETERS: NUMBER OF VIEWS: One view. TECHNIQUE: Single frontal radiographic view of the chest acquired. RADIATION DOSE: NA LIMITATIONS: None. FINDINGS: LUNGS AND PLEURA: Unchanged right lower lobe opacity. Left lung is grossly clear. No ple ural effusion or pneumothorax. MEDIASTINUM AND HILAR STRUCTURES: No masses. Contour normal. HEART AND VASCULAR STRUCTURES: Heart normal in size. Normal vasculature. BONES: No acute findings. HARDWARE: Unchanged positioning of support lines and tubes. Multiple metallic clips within the visua lized upper abdomen. OTHER: No other significant finding. IMPRESSION: No interval change. TECHNICAL DOCUMENTATION: JOB ID: [id number] [employer]- All Rights Reserved Reading location - IP/workstation name: [email or web address]
[2018-05-18] MEDS: DEXTROSE 5%-WATER 1000 ML 1,000 ML IV PRN (09:22)
[2018-05-18] MEDS: IMIPENEM/CILASTATIN SODIUM 500 MG in NORMAL SALINE 100 ML IV SCH ×2 (09:22→21:43)
[2018-05-18] MEDS: PROPOFOL 1,000 MG/100 ML INFUS..BTL IV PRN (10:09)
--- NOTE | 2018-05-18 11:06 | PDOC CONSULTATION ---
Consultation Consult Date: 05/18/18 Attending physician:: MEIR CHASE Consult reason:: Coagulopathy History of Present Illness Admission Date/PCP: 05/10/18 15:59 ERUM HENAO MD Patient complains of: Seizure History of Present Illness: JANET ABBOTT is a 72 year old female who was originally admitted now about 8 days ago with what initially was felt to be a right lower lobe pneumonia, she had a syncopal episode while she was shopping, was found on CT of the chest to have opacification consistent with pneumonia, she was treated with broad- spectrum antibiotics, she was on the floor yesterday and she had a full tonic- clonic seizure and was transferred down to the ICU for closer monitoring, she had both head CT and MRI done just about 2 days ago, both were negative for any acute changes. Currently she is poorly responsive. She had a full code completed and she is currently being cooled per postcode protocol. We have been consulted because her coagulation studies have changed, her PTT is elevated , and her d-dimer is gone up. Of note she had history of both atrial fibrillation as well as on last admission about 2 months ago she had a concern of immediate probability PE and was placed on Eliquis. Because of her kidney failure she is not been able to have a CTA of the chest. There was some mention of heparin-induced thrombocytopenia but her heparin-induced antibody was only 0.501 barely above normal, and usually the hit antibody needs to be above 1 to be truly positive. Past Medical History Cardiac Medical History: Reports: Atrial Fibrillation - paroxysmal type, Hypertension Denies: Myocardial Infarction Pulmonary Medical History: Reports: Bronchitis, Chronic Obstructive Pulmonary Disease (COPD), Pneumonia Denies: Asthma, Tuberculosis Neurological Medical History: Denies: Seizures Malignancy Medical History: Reports: Leukemia - chronic lymphocytic leukemia Musculoskeltal Medical History: Reports: Arthritis - osteoarthritis Psychiatric Medical History: Denies: Depression Hematology: Denies: Anemia Infectious Medical History: Reports: Methicillin-Resistant Staph Aureus Past Surgical History Past Surgical History: Reports: None Social History Information Source: [facility] Records Lives with: Family Smoking Status: Former Smoker Last Time Smoked: 40 years ago Frequency of Alcohol Use: None Hx Recreational Drug Use: No Drugs: None Hx Prescription Drug Abuse: No - Advance Directive Resuscitation Status: Full Code Family History Family History: Hypertension Parental Family History Reviewed: Yes Children Family History Reviewed: Yes Sibling(s) Family History Reviewed.: Yes Medication/Allergy Home Medications: Montelukast Sodium [Singulair 10 mg Tablet] 10 mg PO QPM 08/04/17 Metoprolol Succinate [Toprol Xl] 50 mg PO DAILY 02/23/18 Sodium Bicarbonate [Sodium Bicarbonate 650 mg Tablet] 650 mg PO Q12 #60 tablet 02/23/18 Ergocalciferol (Vitamin D2) [Drisdol 50,000 unit (1.25MG) Capsule] 1 cap PO MENDOZA@ 1000 PRN 03/30/18 Apixaban [Eliquis 2.5 mg Tablet] 2.5 mg PO BID #60 tablet 04/09/18 Albuterol Sulfate [Proair Hfa Inhalation Aerosol 8.5 gm Mdi] 2 puff IH Q6HP PRN 05/10/18 Dapsone 100 mg PO DAILY 05/10/18 Allergies/Adverse Reactions: No Known Allergies Allergy (Verified 05/10/18 19:31) Review of Systems ROS unobtainable: Due to mental status Physical Exam Vital Signs: Temp Pulse Resp BP Pulse Ox 91.6 F L 52 L 18 149/86 H 100 05/18/18 08:00 05/18/18 08:00 05/18/18 08:00 05/18/18 08:00 05/18/18 08:00 Pulse Oximeter Continuous Start: 05/11/18 08: 43 Freq: RTQ4 Status: Complete Document 05/17/18 12:00 [facility] (Rec: 05/17/18 12:00 [facility] [id number]) Pulse Oximetry Assessment Oxygen Saturation (92-100) 96 Oxygen Flow Rate (L/min) 2 Oxygen Delivery Method Nasal Cannula Equipment Usage Equipment in Use Continuous SpO2 Machine # 3 Intake & Output 05/17/18 05/18/18 05/19/18 06:59 06:59 06:59 Intake Total 649 961 3210 Output Total 925 200 Balance 920 -92 844 Weight 48.7 kg 53.7 kg General appearance: PRESENT: no acute distress Head exam: PRESENT: atraumatic Mouth exam: PRESENT: dry mucosa Respiratory exam: PRESENT: clear to auscultation sendy. ABSENT: rales, rhonchi, wheezes Cardiovascular exam: PRESENT: RRR. ABSENT: diastolic murmur, rubs, systolic murmur GI/Abdominal exam: PRESENT: normal bowel sounds, soft. ABSENT: distended, guarding, mass, organolmegaly, rebound, tenderness Rectal exam: PRESENT: deferred Neurological exam: PRESENT: altered Results Laboratory Results: 05/18/18 06:00 05/18/18 06:00 05/17/18 05/17/18 05/17/18 14:10 14:10 14:10 WBC RBC Hgb Hct MCV MCH MCHC RDW Plt Count Seg Neutrophils % Lymphocytes % Monocytes % Eosinophils % Basophils % Absolute Neutrophils Absolute Lymphocytes Absolute Monocytes Absolute Eosinophils Absolute Basophils Carbonic Acid HCO3/H2CO3 Ratio ABG pH ABG pCO2 ABG pO2 ABG HCO3 ABG O2 Saturation ABG Base Excess FiO2 Sodium Potassium Chloride Carbon Dioxide Anion Gap BUN Creatinine Est GFR ( Amer) Est GFR (Non-Af Amer) Glucose Calcium Magnesium Total Bilirubin AST ALT Alkaline Phosphatase Total Protein Albumin Triglycerides Urine Color Urine Appearance Urine pH Ur Specific [place] Urine Protein Urine Glucose (UA) Urine Ketones Urine Blood Urine Nitrite Ur Leukocyte Esterase Urine WBC (Auto) Urine RBC (Auto) Fluid Tube Number CSF Volume CSF Appearance CSF Color CSF WBC CSF RBC CSF Color (1) CSF Appearance (1) CSF Color (2) CSF Appearance (2) CSF Color (3) CSF Appearance (3) CSF Color (4) CSF Appearance (4) CSF Comment CSF CULT NOT ORDERED CSF Glucose 56 CSF Total Protein PEP Cancelled CSF Total Protein 38 CSF Prealbumin Cancelled CSF Albumin Cancelled CSF Jwrrv-1-Vlfyqacp Cancelled CSF Vtccw-8-Vbnhcpid Cancelled CSF Beta Globulin Cancelled CSF Gamma Globulin Cancelled CSF PEP M-Alexis Cancelled 05/17/18 05/17/18 05/17/18 14:10 15:07 16:23 WBC RBC Hgb Hct MCV MCH MCHC RDW Plt Count Seg Neutrophils % Lymphocytes % Monocytes % Eosinophils % Basophils % Absolute Neutrophils Absolute Lymphocytes Absolute Monocytes Absolute Eosinophils Absolute Basophils Carbonic Acid 1.54 H HCO3/H2CO3 Ratio 15:1 ABG pH 7.27 L ABG pCO2 51.1 H ABG pO2 87.6 ABG HCO3 23.2 ABG O2 Saturation 95.4 ABG Base Excess -3.6 FiO2 4L Sodium Potassium Chloride Carbon Dioxide Anion Gap BUN Creatinine Est GFR ( Amer) Est GFR (Non-Af Amer) Glucose Calcium Magnesium 1.8 Total Bilirubin AST ALT Alkaline Phosphatase Total Protein Albumin Triglycerides Urine Color Urine Appearance Urine pH Ur Specific [place] Urine Protein Urine Glucose (UA) Urine Ketones Urine Blood Urine Nitrite Ur Leukocyte Esterase Urine WBC (Auto) Urine RBC (Auto) Fluid Tube Number 2 CSF Volume 8.0 CSF Appearance CLEAR CSF Color COLORLESS CSF WBC 3 CSF RBC 360 CSF Color (1) COLORLESS CSF Appearance (1) CLEAR CSF Color (2) COLORLESS CSF Appearance (2) CLEAR CSF Color (3) COLORLESS CSF Appearance (3) CLEAR CSF Color (4) COLORLESS CSF Appearance (4) CLEAR CSF Comment CSF Glucose CSF Total Protein PEP CSF Total Protein CSF Prealbumin CSF Albumin CSF Uhtio-7-Tgdhfckm CSF Brrit-9-Vvckvejm CSF Beta Globulin CSF Gamma Globulin CSF PEP M-Alexis 05/17/18 05/17/18 05/17/18 16:47 16:47 16:47 WBC 10.7 H RBC 2.25 L Hgb 7.5 L Hct 22.5 L MCV 100 H MCH 33.5 H MCHC 33.4 RDW 18.9 H Plt Count 110 L Seg Neutrophils % Not Reportable Lymphocytes % Not Reportable Monocytes % Not Reportable Eosinophils % Not Reportable Basophils % Not Reportable Absolute Neutrophils Not Reportable Absolute Lymphocytes Not Reportable Absolute Monocytes Not Reportable Absolute Eosinophils Not Reportable Absolute Basophils Not Reportable Carbonic Acid HCO3/H2CO3 Ratio ABG pH ABG pCO2 ABG pO2 ABG HCO3 ABG O2 Saturation ABG Base Excess FiO2 Sodium 151.8 H Potassium 3.3 L Chloride 116 H Carbon Dioxide 23 Anion Gap 13 BUN 44 H Creatinine 2.25 H Est GFR ( Amer) 26 L Est GFR (Non-Af Amer) 22 L Glucose 104 Calcium 8.5 Magnesium Total Bilirubin AST ALT Alkaline Phosphatase Total Protein Albumin Triglycerides 162 H Urine Color Urine Appearance Urine pH Ur Specific [place] Urine Protein Urine Glucose (UA) Urine Ketones Urine Blood Urine Nitrite Ur Leukocyte Esterase Urine WBC (Auto) Urine RBC (Auto) Fluid Tube Number CSF Volume CSF Appearance CSF Color CSF WBC CSF RBC CSF Color (1) CSF Appearance (1) CSF Color (2) CSF Appearance (2) CSF Color (3) CSF Appearance (3) CSF Color (4) CSF Appearance (4) CSF Comment CSF Glucose CSF Total Protein PEP CSF Total Protein CSF Prealbumin CSF Albumin CSF Smnlj-5-Cjoxvlet CSF Cocep-1-Bulprvuj CSF Beta Globulin CSF Gamma Globulin CSF PEP M-Alexis 05/17/18 05/17/18 05/17/18 18:47 19:05 20:00 WBC 9.6 RBC 2.29 L Hgb 7.7 L Hct 23.0 L MCV 101 H MCH 33.8 H MCHC 33.6 RDW 19.2 H Plt Count 99 L Seg Neutrophils % Not Reportable Lymphocytes % Not Reportable Monocytes % Not Reportable Eosinophils % Not Reportable Basophils % Not Reportable Absolute Neutrophils Not Reportable Absolute Lymphocytes Not Reportable Absolute Monocytes Not Reportable Absolute Eosinophils Not Reportable Absolute Basophils Not Reportable Carbonic Acid 1.28 HCO3/H2CO3 Ratio 16:1 ABG pH 7.32 L ABG pCO2 42.5 ABG pO2 111.8 H ABG HCO3 21.4 ABG O2 Saturation 97.7 ABG Base Excess -4.6 FiO2 60% Sodium Potassium Chloride Carbon Dioxide Anion Gap BUN Creatinine Est GFR ( Amer) Est GFR (Non-Af Amer) Glucose Calcium Magnesium Total Bilirubin AST ALT Alkaline Phosphatase Total Protein Albumin Triglycerides Urine Color STRAW Urine Appearance CLEAR Urine pH 6.0 Ur Specific [place] 1.008 Urine Protein 30 H Urine Glucose (UA) NEGATIVE Urine Ketones NEGATIVE Urine Blood SMALL H Urine Nitrite NEGATIVE Ur Leukocyte Esterase NEGATIVE Urine WBC (Auto) 1 Urine RBC (Auto) 1 Fluid Tube Number CSF Volume CSF Appearance CSF Color CSF WBC CSF RBC CSF Color (1) CSF Appearance (1) CSF Color (2) CSF Appearance (2) CSF Color (3) CSF Appearance (3) CSF Color (4) CSF Appearance (4) CSF Comment CSF Glucose CSF Total Protein PEP CSF Total Protein CSF Prealbumin CSF Albumin CSF Ypaye-3-Akyoszqv CSF Bgjop-6-Vlvfadry CSF Beta Globulin CSF Gamma Globulin CSF PEP M-Alexis 05/17/18 05/17/18 05/18/18 20:00 20:00 06:00 WBC RBC Hgb Hct MCV MCH MCHC RDW Plt Count Seg Neutrophils % Lymphocytes % Monocytes % Eosinophils % Basophils % Absolute Neutrophils Absolute Lymphocytes Absolute Monocytes Absolute Eosinophils Absolute Basophils Carbonic Acid 0.78 L HCO3/H2CO3 Ratio 25:1 ABG pH 7.50 H ABG pCO2 25.9 L ABG pO2 112.2 H ABG HCO3 19.5 L ABG O2 Saturation 98.5 H ABG Base Excess -3.1 FiO2 30% Sodium 149.8 H Potassium 3.4 L Chloride 115 H Carbon Dioxide 20 L Anion Gap 15 BUN 43 H Creatinine 2.24 H Est GFR ( Amer) 26 L Est GFR (Non-Af Amer) 22 L Glucose 196 H Calcium 8.4 Magnesium 4.1 H D Total Bilirubin 1.3 AST 176 H ALT 58 H Alkaline Phosphatase 101 Total Protein 5.4 L Albumin 2.7 L Triglycerides Urine Color Urine Appearance Urine pH Ur Specific [place] Urine Protein Urine Glucose (UA) Urine Ketones Urine Blood Urine Nitrite Ur Leukocyte Esterase Urine WBC (Auto) Urine RBC (Auto) Fluid Tube Number CSF Volume CSF Appearance CSF Color CSF WBC CSF RBC CSF Color (1) CSF Appearance (1) CSF Color (2) CSF Appearance (2) CSF Color (3) CSF Appearance (3) CSF Color (4) CSF Appearance (4) CSF Comment CSF Glucose CSF Total Protein PEP CSF Total Protein CSF Prealbumin CSF Albumin CSF Xeenm-7-Ndmhogrt CSF Oebdh-4-Cehunrse CSF Beta Globulin CSF Gamma Globulin CSF PEP M-Alexis 05/18/18 05/18/18 06:00 06:00 WBC 9.6 RBC 2.30 L Hgb 7.8 L Hct 22.6 L MCV 98 H MCH 33.8 H MCHC 34.4 RDW 19.3 H Plt Count 87 L Seg Neutrophils % Not Reportable Lymphocytes % Not Reportable Monocytes % Not Reportable Eosinophils % Not Reportable Basophils % Not Reportable Absolute Neutrophils Not Reportable Absolute Lymphocytes Not Reportable Absolute Monocytes Not Reportable Absolute Eosinophils Not Reportable Absolute Basophils Not Reportable Carbonic Acid HCO3/H2CO3 Ratio ABG pH ABG pCO2 ABG pO2 ABG HCO3 ABG O2 Saturation ABG Base Excess FiO2 Sodium 147.2 H Potassium 3.3 L Chloride 114 H Carbon Dioxide 19 L Anion Gap 14 BUN 41 H Creatinine 1.89 H Est GFR ( Amer) 32 L Est GFR (Non-Af Amer) 26 L Glucose 140 H Calcium 8.5 Magnesium 3.5 H Total Bilirubin AST ALT Alkaline Phosphatase Total Protein Albumin Triglycerides Urine Color Urine Appearance Urine pH Ur Specific [place] Urine Protein Urine Glucose (UA) Urine Ketones Urine Blood Urine Nitrite Ur Leukocyte Esterase Urine WBC (Auto) Urine RBC (Auto) Fluid Tube Number CSF Volume CSF Appearance CSF Color CSF WBC CSF RBC CSF Color (1) CSF Appearance (1) CSF Color (2) CSF Appearance (2) CSF Color (3) CSF Appearance (3) CSF Color (4) CSF Appearance (4) CSF Comment CSF Glucose CSF Total Protein PEP CSF Total Protein CSF Prealbumin CSF Albumin CSF Qmfrx-2-Paxbdclg CSF Apsnz-5-Aqfrcmtn CSF Beta Globulin CSF Gamma Globulin CSF PEP M-Alexis Impressions: Knee X-Ray 05/10/18 13:01 IMPRESSION: 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 Chest CT 05/10/18 15:25 IMPRESSION: Right middle lobe and lower lobe pneumonia associated with bronchiectasis. This appears more extensive than on the earlier CT. Limited bronchiectasis in the lingula. Cannot exclude a limited pneumonia in the lingula. Lung Scan-VQ NM 05/10/18 15:25 IMPRESSION: For activity on ventilation and perfusion at the right lung base correlates with dense consolidation in the right middle and lower lobe on CT chest 05/10/2018. This is a triple match and is low probability for pulmonary embolus on PIOPED criteria. Head CT 05/15/18 00:00 IMPRESSION: No acute intracranial abnormality. EVIDENCE OF ACUTE STROKE: NO. Head MRI 05/15/18 00:00 IMPRESSION: NORMAL MRI OF THE BRAIN WITHOUT INTRAVENOUS GADOLINIUM CONTRAST. EVIDENCE OF ACUTE STROKE: NO. Guidance Fluoroscopy 05/17/18 00:00 IMPRESSION: Lumbar puncture under fluoroscopy. No immediate complication. Lumbar Puncture 05/17/18 00:00 IMPRESSION: Lumbar puncture under fluoroscopy. No immediate complication. KUB X-Ray 05/17/18 16:46 IMPRESSION: Enteric tube is in place. Chest X-Ray 05/18/18 06:15 IMPRESSION: No interval change. Status: Image reviewed by me Assessment & Plan - Diagnosis (1) Coagulopathy Is this a current diagnosis for this admission?: Yes Plan: Probable cause of worsened coagulopathy is the recent code, d-dimer elevation is most likely secondary to the recent code. PTT seems to been persistently elevated even from previous admission she is on heparin now so that can elevate her PTT as well. But her platelet count is dropping that is probably more a DIC -like picture from the recent events. She does not appear to be actively bleeding, and there is no evidence that she has active clots right now. She could be continued on current protocol as being done. - Time Time Spent: Greater than 70 Minutes - Inpatient Certification Based on my medical assessment, after consideration of the patient's comorbidities, presenting symptoms, or acuity I expect that the services needed warrant INPATIENT care.: Yes I certify that my determination is in accordance with my understanding of Medicare's requirements for reasonable and necessary INPATIENT services [42 CFR 412.3e].: Yes Medical Necessity: Need For Continuous Telemetry Monitoring, Need for Neurological Checks, Risk of Complication if Not Cared For in Hospital
[2018-05-18] MEDS: DEXTROSE 5%-WATER 250 ML with NOREPINEPHRINE BITARTRATE 4 MG IV PRN ×2 (13:36)
--- NOTE | 2018-05-18 13:50 | PDOC PROGRESS REPORT ---
Subjective Progress Note for:: 05/18/18 Subjective:: Patient seen by the bedside, on mechanical ventilation, Reason For Visit: PNEUMONIA Physical Exam Vital Signs: Temp Pulse Resp BP Pulse Ox 91.8 F L 69 14 143/92 H 100 05/18/18 12:00 05/18/18 12:00 05/18/18 12:00 05/18/18 12:00 05/18/18 12:00 Pulse Oximeter Continuous Start: 05/11/18 08: 43 Freq: RTQ4 Status: Complete Document 05/17/18 12:00 [facility] (Rec: 05/17/18 12:00 [facility] [id number]) Pulse Oximetry Assessment Oxygen Saturation (92-100) 96 Oxygen Flow Rate (L/min) 2 Oxygen Delivery Method Nasal Cannula Equipment Usage Equipment in Use Continuous SpO2 Machine # 3 Intake & Output 05/17/18 05/18/18 05/19/18 06:59 06:59 06:59 Intake Total 175 554 0788 Output Total 925 290 Balance 920 -92 804 Weight 48.7 kg 53.7 kg General appearance: PRESENT: no acute distress Eye exam: PRESENT: PERRLA Respiratory exam: PRESENT: symmetrical Cardiovascular exam: PRESENT: +S1, +S2 GI/Abdominal exam: PRESENT: soft Neurological exam: PRESENT: alert, other - intubated Results Laboratory Results: 05/18/18 06:00 05/18/18 06:00 05/17/18 05/17/18 05/17/18 14:10 14:10 14:10 WBC RBC Hgb Hct MCV MCH MCHC RDW Plt Count Seg Neutrophils % Lymphocytes % Monocytes % Eosinophils % Basophils % Absolute Neutrophils Absolute Lymphocytes Absolute Monocytes Absolute Eosinophils Absolute Basophils Carbonic Acid HCO3/H2CO3 Ratio ABG pH ABG pCO2 ABG pO2 ABG HCO3 ABG O2 Saturation ABG Base Excess FiO2 Sodium Potassium Chloride Carbon Dioxide Anion Gap BUN Creatinine Est GFR ( Amer) Est GFR (Non-Af Amer) Glucose Calcium Magnesium Total Bilirubin AST ALT Alkaline Phosphatase Total Protein Albumin Triglycerides Urine Color Urine Appearance Urine pH Ur Specific Ryan Urine Protein Urine Glucose (UA) Urine Ketones Urine Blood Urine Nitrite Ur Leukocyte Esterase Urine WBC (Auto) Urine RBC (Auto) Fluid Tube Number CSF Volume CSF Appearance CSF Color CSF WBC CSF RBC CSF Color (1) CSF Appearance (1) CSF Color (2) CSF Appearance (2) CSF Color (3) CSF Appearance (3) CSF Color (4) CSF Appearance (4) CSF Comment CSF CULT NOT ORDERED CSF Glucose 56 CSF Total Protein PEP Cancelled CSF Total Protein 38 CSF Prealbumin Cancelled CSF Albumin Cancelled CSF Txckz-1-Jnestxaq Cancelled CSF Pkhxl-4-Mdmwnmnd Cancelled CSF Beta Globulin Cancelled CSF Gamma Globulin Cancelled CSF PEP M-Alexis Cancelled 05/17/18 05/17/18 05/17/18 14:10 15:07 16:23 WBC RBC Hgb Hct MCV MCH MCHC RDW Plt Count Seg Neutrophils % Lymphocytes % Monocytes % Eosinophils % Basophils % Absolute Neutrophils Absolute Lymphocytes Absolute Monocytes Absolute Eosinophils Absolute Basophils Carbonic Acid 1.54 H HCO3/H2CO3 Ratio 15:1 ABG pH 7.27 L ABG pCO2 51.1 H ABG pO2 87.6 ABG HCO3 23.2 ABG O2 Saturation 95.4 ABG Base Excess -3.6 FiO2 4L Sodium Potassium Chloride Carbon Dioxide Anion Gap BUN Creatinine Est GFR ( Amer) Est GFR (Non-Af Amer) Glucose Calcium Magnesium 1.8 Total Bilirubin AST ALT Alkaline Phosphatase Total Protein Albumin Triglycerides Urine Color Urine Appearance Urine pH Ur Specific Ryan Urine Protein Urine Glucose (UA) Urine Ketones Urine Blood Urine Nitrite Ur Leukocyte Esterase Urine WBC (Auto) Urine RBC (Auto) Fluid Tube Number 2 CSF Volume 8.0 CSF Appearance CLEAR CSF Color COLORLESS CSF WBC 3 CSF RBC 360 CSF Color (1) COLORLESS CSF Appearance (1) CLEAR CSF Color (2) COLORLESS CSF Appearance (2) CLEAR CSF Color (3) COLORLESS CSF Appearance (3) CLEAR CSF Color (4) COLORLESS CSF Appearance (4) CLEAR CSF Comment CSF Glucose CSF Total Protein PEP CSF Total Protein CSF Prealbumin CSF Albumin CSF Fntil-5-Obobpbkp CSF Btyhd-4-Nwvcjfrg CSF Beta Globulin CSF Gamma Globulin CSF PEP M-Alexis 05/17/18 05/17/18 05/17/18 16:47 16:47 16:47 WBC 10.7 H RBC 2.25 L Hgb 7.5 L Hct 22.5 L MCV 100 H MCH 33.5 H MCHC 33.4 RDW 18.9 H Plt Count 110 L Seg Neutrophils % Not Reportable Lymphocytes % Not Reportable Monocytes % Not Reportable Eosinophils % Not Reportable Basophils % Not Reportable Absolute Neutrophils Not Reportable Absolute Lymphocytes Not Reportable Absolute Monocytes Not Reportable Absolute Eosinophils Not Reportable Absolute Basophils Not Reportable Carbonic Acid HCO3/H2CO3 Ratio ABG pH ABG pCO2 ABG pO2 ABG HCO3 ABG O2 Saturation ABG Base Excess FiO2 Sodium 151.8 H Potassium 3.3 L Chloride 116 H Carbon Dioxide 23 Anion Gap 13 BUN 44 H Creatinine 2.25 H Est GFR ( Amer) 26 L Est GFR (Non-Af Amer) 22 L Glucose 104 Calcium 8.5 Magnesium Total Bilirubin AST ALT Alkaline Phosphatase Total Protein Albumin Triglycerides 162 H Urine Color Urine Appearance Urine pH Ur Specific Ryan Urine Protein Urine Glucose (UA) Urine Ketones Urine Blood Urine Nitrite Ur Leukocyte Esterase Urine WBC (Auto) Urine RBC (Auto) Fluid Tube Number CSF Volume CSF Appearance CSF Color CSF WBC CSF RBC CSF Color (1) CSF Appearance (1) CSF Color (2) CSF Appearance (2) CSF Color (3) CSF Appearance (3) CSF Color (4) CSF Appearance (4) CSF Comment CSF Glucose CSF Total Protein PEP CSF Total Protein CSF Prealbumin CSF Albumin CSF Ghlkr-2-Vrcijhea CSF Yksnw-8-Ihfghrct CSF Beta Globulin CSF Gamma Globulin CSF PEP M-Alexis 05/17/18 05/17/18 05/17/18 18:47 19:05 20:00 WBC 9.6 RBC 2.29 L Hgb 7.7 L Hct 23.0 L MCV 101 H MCH 33.8 H MCHC 33.6 RDW 19.2 H Plt Count 99 L Seg Neutrophils % Not Reportable Lymphocytes % Not Reportable Monocytes % Not Reportable Eosinophils % Not Reportable Basophils % Not Reportable Absolute Neutrophils Not Reportable Absolute Lymphocytes Not Reportable Absolute Monocytes Not Reportable Absolute Eosinophils Not Reportable Absolute Basophils Not Reportable Carbonic Acid 1.28 HCO3/H2CO3 Ratio 16:1 ABG pH 7.32 L ABG pCO2 42.5 ABG pO2 111.8 H ABG HCO3 21.4 ABG O2 Saturation 97.7 ABG Base Excess -4.6 FiO2 60% Sodium Potassium Chloride Carbon Dioxide Anion Gap BUN Creatinine Est GFR ( Amer) Est GFR (Non-Af Amer) Glucose Calcium Magnesium Total Bilirubin AST ALT Alkaline Phosphatase Total Protein Albumin Triglycerides Urine Color STRAW Urine Appearance CLEAR Urine pH 6.0 Ur Specific Ryan 1.008 Urine Protein 30 H Urine Glucose (UA) NEGATIVE Urine Ketones NEGATIVE Urine Blood SMALL H Urine Nitrite NEGATIVE Ur Leukocyte Esterase NEGATIVE Urine WBC (Auto) 1 Urine RBC (Auto) 1 Fluid Tube Number CSF Volume CSF Appearance CSF Color CSF WBC CSF RBC CSF Color (1) CSF Appearance (1) CSF Color (2) CSF Appearance (2) CSF Color (3) CSF Appearance (3) CSF Color (4) CSF Appearance (4) CSF Comment CSF Glucose CSF Total Protein PEP CSF Total Protein CSF Prealbumin CSF Albumin CSF Ligrh-6-Xcmelycr CSF Lbbiy-1-Wmqkvqpg CSF Beta Globulin CSF Gamma Globulin CSF PEP M-Alexis 05/17/18 05/17/18 05/18/18 20:00 20:00 06:00 WBC RBC Hgb Hct MCV MCH MCHC RDW Plt Count Seg Neutrophils % Lymphocytes % Monocytes % Eosinophils % Basophils % Absolute Neutrophils Absolute Lymphocytes Absolute Monocytes Absolute Eosinophils Absolute Basophils Carbonic Acid 0.78 L HCO3/H2CO3 Ratio 25:1 ABG pH 7.50 H ABG pCO2 25.9 L ABG pO2 112.2 H ABG HCO3 19.5 L ABG O2 Saturation 98.5 H ABG Base Excess -3.1 FiO2 30% Sodium 149.8 H Potassium 3.4 L Chloride 115 H Carbon Dioxide 20 L Anion Gap 15 BUN 43 H Creatinine 2.24 H Est GFR ( Amer) 26 L Est GFR (Non-Af Amer) 22 L Glucose 196 H Calcium 8.4 Magnesium 4.1 H D Total Bilirubin 1.3 AST 176 H ALT 58 H Alkaline Phosphatase 101 Total Protein 5.4 L Albumin 2.7 L Triglycerides Urine Color Urine Appearance Urine pH Ur Specific Ryan Urine Protein Urine Glucose (UA) Urine Ketones Urine Blood Urine Nitrite Ur Leukocyte Esterase Urine WBC (Auto) Urine RBC (Auto) Fluid Tube Number CSF Volume CSF Appearance CSF Color CSF WBC CSF RBC CSF Color (1) CSF Appearance (1) CSF Color (2) CSF Appearance (2) CSF Color (3) CSF Appearance (3) CSF Color (4) CSF Appearance (4) CSF Comment CSF Glucose CSF Total Protein PEP CSF Total Protein CSF Prealbumin CSF Albumin CSF Gfntm-9-Upkkpqjy CSF Yxuvy-0-Knqnbhod CSF Beta Globulin CSF Gamma Globulin CSF PEP M-Alexis 05/18/18 05/18/18 06:00 06:00 WBC 9.6 RBC 2.30 L Hgb 7.8 L Hct 22.6 L MCV 98 H MCH 33.8 H MCHC 34.4 RDW 19.3 H Plt Count 87 L Seg Neutrophils % Not Reportable Lymphocytes % Not Reportable Monocytes % Not Reportable Eosinophils % Not Reportable Basophils % Not Reportable Absolute Neutrophils Not Reportable Absolute Lymphocytes Not Reportable Absolute Monocytes Not Reportable Absolute Eosinophils Not Reportable Absolute Basophils Not Reportable Carbonic Acid HCO3/H2CO3 Ratio ABG pH ABG pCO2 ABG pO2 ABG HCO3 ABG O2 Saturation ABG Base Excess FiO2 Sodium 147.2 H Potassium 3.3 L Chloride 114 H Carbon Dioxide 19 L Anion Gap 14 BUN 41 H Creatinine 1.89 H Est GFR ( Amer) 32 L Est GFR (Non-Af Amer) 26 L Glucose 140 H Calcium 8.5 Magnesium 3.5 H Total Bilirubin AST ALT Alkaline Phosphatase Total Protein Albumin Triglycerides Urine Color Urine Appearance Urine pH Ur Specific Ryan Urine Protein Urine Glucose (UA) Urine Ketones Urine Blood Urine Nitrite Ur Leukocyte Esterase Urine WBC (Auto) Urine RBC (Auto) Fluid Tube Number CSF Volume CSF Appearance CSF Color CSF WBC CSF RBC CSF Color (1) CSF Appearance (1) CSF Color (2) CSF Appearance (2) CSF Color (3) CSF Appearance (3) CSF Color (4) CSF Appearance (4) CSF Comment CSF Glucose CSF Total Protein PEP CSF Total Protein CSF Prealbumin CSF Albumin CSF Rejzo-6-Hqfpeqxg CSF Fpado-4-Rctdptxx CSF Beta Globulin CSF Gamma Globulin CSF PEP M-Alexis Impressions: Knee X-Ray 05/10/18 13:01 IMPRESSION: 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 Chest CT 05/10/18 15:25 IMPRESSION: Right middle lobe and lower lobe pneumonia associated with bronchiectasis. This appears more extensive than on the earlier CT. Limited bronchiectasis in the lingula. Cannot exclude a limited pneumonia in the lingula. Lung Scan-VQ NM 05/10/18 15:25 IMPRESSION: For activity on ventilation and perfusion at the right lung base correlates with dense consolidation in the right middle and lower lobe on CT chest 05/10/2018. This is a triple match and is low probability for pulmonary embolus on PIOPED criteria. Head CT 05/15/18 00:00 IMPRESSION: No acute intracranial abnormality. EVIDENCE OF ACUTE STROKE: NO. Head MRI 05/15/18 00:00 IMPRESSION: NORMAL MRI OF THE BRAIN WITHOUT INTRAVENOUS GADOLINIUM CONTRAST. EVIDENCE OF ACUTE STROKE: NO. Guidance Fluoroscopy 05/17/18 00:00 IMPRESSION: Lumbar puncture under fluoroscopy. No immediate complication. Lumbar Puncture 05/17/18 00:00 IMPRESSION: Lumbar puncture under fluoroscopy. No immediate complication. KUB X-Ray 05/17/18 16:46 IMPRESSION: Enteric tube is in place. Chest X-Ray 05/18/18 06:15 IMPRESSION: No interval change. Assessment & Plan - Diagnosis (1) Acute hypoxemic respiratory failure Is this a current diagnosis for this admission?: Yes (2) Pseudomonas pneumonia Qualifiers: Laterality: unspecified laterality Lung location: unspecified part of lung Qualified Code(s): J15.1 - Pneumonia due to Pseudomonas Is this a current diagnosis for this admission?: Yes (3) CLL (chronic lymphocytic leukemia) Is this a current diagnosis for this admission?: Yes (4) Citrobacter infection Is this a current diagnosis for this admission?: Yes (5) Tremor Is this a current diagnosis for this admission?: Yes (6) Encephalopathy Is this a current diagnosis for this admission?: Yes Plan: 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
[2018-05-18] MEDS ORDERED: SUCRALFATE SUSP 1 GM/10 ML UDCUP NG ONE (21:30)
[2018-05-19] MEDS: PROPOFOL 1,000 MG/100 ML INFUS..BTL IV PRN (02:16)
[2018-05-19] MEDS: DEXTROSE 5%-WATER 1000 ML 1,000 ML IV PRN (02:17)
[2018-05-19 06:41] LABS: ARTERIAL BLOOD BASE EXCESS -5.5 mmol/L; ARTERIAL BLOOD H2CO3 0.98 mmol/L (1.05-1.35); ARTERIAL BLOOD HCO3 18.9 mmol/L (20-24); ARTERIAL BLOOD O2 SATURATION 97.7 % (94-98); ARTERIAL BLOOD PCO2 32.5 mmHg (35-45); ARTERIAL BLOOD PH 7.38 (7.35-7.45); ARTERIAL BLOOD PO2 102.4 mmHg (80-100); ARTERIAL BLOOD TOTAL CO2 19.9 mmol/L (21-25)
[2018-05-19 06:42] LABS: ARTERIAL BLOOD FIO2 30%
[2018-05-19 06:50] LABS: HEMATOCRIT 23.1 % (36.0-47.0); MEAN CORPUSCULAR HEMOGLOBIN 33.2 pg (27.0-33.4); MEAN CORPUSCULAR HGB CONC 33.5 g/dL (32.0-36.0); MEAN CORPUSCULAR VOLUME 99 fl (80-97); RED BLOOD COUNT 2.33 10^6/uL (3.72-5.28); RED CELL DISTRIBUTION WIDTH 19.1 % (11.5-14.0); WHITE BLOOD COUNT 11.7 10^3/uL (4.0-10.5)
[2018-05-19 06:59] LABS: ANION GAP 13 (5-19); BLOOD UREA NITROGEN 39 mg/dL (7-20); CALCIUM 8.3 mg/dL (8.4-10.2); CARBON DIOXIDE 18 mmol/L (22-30); CHLORIDE 111 mmol/L (98-107); GLUCOSE 105 mg/dL (75-110); POTASSIUM 4.3 mmol/L (3.6-5.0); SODIUM 142.2 mmol/L (137-145)
--- NOTE | 2018-05-19 07:00 | RADIOLOGY REPORT (SQ) ---
EXAM DESCRIPTION: XR CHEST 1 VIEW COMPLETED DATE/TME: 05/19/2018 06:15 CLINICAL HISTORY: 72 years, Female, PNA COMPARISON: 05/18/2018 chest x-ray NUMBER OF VIEWS: 1 TECHNIQUE: Portable chest LIMITATIONS: None. FINDINGS: Heart size is stable. Grossly stable indwelling lines and catheters. Osteopenia. No discrete pneumothorax. Surgical clips left upper quadrant. Right basilar airspace opacity. Streaky opacity in the left lung base as well. IMPRESSION: Little interval change copyright 2010 [email or web address]- All Rights Reserved
[2018-05-19 07:06] LABS: CREATINE KINASE < 20 U/L (30-135)
[2018-05-19 07:11] LABS: CREATINE KINASE MB 0.98 ng/mL (<4.55); NT PRO BNP 2910 pg/mL (5-900)
[2018-05-19 07:14] LABS: TROPONIN I < 0.012 ng/mL
[2018-05-19 07:17] LABS: HEMOGLOBIN 7.7 g/dL (12.0-15.5); PLATELET COUNT 81 10^3/uL (150-450)
[2018-05-19] MEDS: ACYCLOVIR SODIUM 500 MG in NORMAL SALINE 100 ML IV SCH (07:19)
[2018-05-19] MEDS: SUCRALFATE SUSP 1 GM/10 ML UDCUP NG SCH ×4 (07:19→23:11)
[2018-05-19 07:21] LABS: ABSOLUTE LYMPHOCYTES# (MANUAL) 4.1 10^3/uL (0.5-4.7); ABSOLUTE MONOCYTES # (MANUAL) 0.1 10^3/uL (0.1-1.4); ABSOLUTE NEUTROPHILS# (MANUAL) 7.1 10^3/uL (1.7-8.2); BASOPHILS % (MANUAL) 2 % (0-2); EOSINOPHILS % (MANUAL) 1 % (0-6); LYMPHOCYTES % (MANUAL) 35 % (13-45); MONOCYTES % (MANUAL) 1 % (3-13); NUCLEATED RED BLOOD CELLS 15 /100 WBC (0); SEGMENTED NEUTROPHILS % (MAN) 61 % (42-78); TOTAL CELLS COUNTED 100
[2018-05-19 07:27] LABS: TOXIC GRANULATION 1+
[2018-05-19 07:28] LABS: ACANTHOCYTES 1+; ANISOCYTOSIS 2+; OVALOCYTES 1+; PLATELET COMMENT DECREASED; POIKILOCYTOSIS 2+; SCHISTOCYTES 1+
[2018-05-19] MEDS: LEVETIRACETAM 500 MG/NACL-ISO 500 MG/100 ML RTUPB IV SCH ×2 (07:28→17:03)
[2018-05-19] MEDS: IMIPENEM/CILASTATIN SODIUM 500 MG in NORMAL SALINE 100 ML IV SCH ×2 (09:48→23:10)
[2018-05-19] MEDS: LORAZEPAM INJ 2 MG/1 ML VIAL IV PRN ×2 (13:21→23:11)
[2018-05-19] MEDS: MIDAZOLAM HCL 50 MG/100 ML RTUINJ IV PRN (13:22)
[2018-05-19] MEDS ORDERED: NORMAL SALINE 1000 ML 1,000 ML IV PRN (14:03)
--- NOTE | 2018-05-19 15:05 | RADIOLOGY REPORT (SQ) ---
EXAM DESCRIPTION: CT HEAD WITHOUT COMPLETED DATE/TIME: 05/19/2018 2:52 pm REASON FOR STUDY: AMS, seizures COMPARISON: 05/15/2018 and earlier TECHNIQUE: Axial images acquired through the brain without intravenous contrast. Images reviewed wi th bone, brain and subdural windows. Additional sagittal and coronal reconstructions were generated. Images stored on PACS. All CT scanners at this facility use dose modulation, iterative reconstruction, and/or weight based d osing when appropriate to reduce radiation dose to as low as reasonably achievable (ALARA). [facility]: Dose Right [facility]: CareDose [facility]: Dose Right [facility]: Teradose 4D [facility]: [employer] RADIATION DOSE: CT Rad equipment meets quality standard of care and radiation dose reduction techniq ues were employed. CTDIvol: 53.2 mGy. DLP: 1097 mGy-cm. mGy. LIMITATIONS: None. FINDINGS: VENTRICLES: Normal size and contour. CEREBRUM: No masses. No hemorrhage. No midline shift. No evidence for acute infarction. Normal gra y/white matter differentiation. No areas of low density in the white matter. CEREBELLUM: No masses. No hemorrhage. No alteration of density. No evidence for acute infarction. EXTRAAXIAL SPACES: No fluid collections. No masses. ORBITS AND GLOBE: No intra- or extraconal masses. Normal contour of globe without masses. CALVARIUM: No fracture. PARANASAL SINUSES: Mucoperiosteal thickening of the ethmoid air cells. Polyps versus mucous retentio n cysts of the visualized maxillary sinuses. SOFT TISSUES: No mass or hematoma. OTHER: Incompletely visualized enteric tube. IMPRESSION: NO ACUTE INTRACRANIAL IMAGING FINDINGS. EVIDENCE OF ACUTE STROKE: NO. COMMENT: Quality ID # [id number]: Final reports with documentation of one or more dose reduction techniques (e.g., Automated exposure control, adjustment of the mA and/or kV according to patient size, use of iterative reconstruction technique) TECHNICAL DOCUMENTATION: JOB ID: [id number] [employer]- All Rights Reserved Reading location - IP/workstation name: [email or web address]
--- NOTE | 2018-05-19 21:20 | PDOC TRANSFER SUMMARY ---
General Admission Date/PCP: 05/10/18 15:59 ERUM HENAO MD Resuscitation Status: Full Code - Transfer Diagnosis (1) Acute hypoxemic respiratory failure Is this a current diagnosis for this admission?: Yes (2) Pseudomonas pneumonia Is this a current diagnosis for this admission?: Yes (3) CLL (chronic lymphocytic leukemia) Is this a current diagnosis for this admission?: Yes (4) Citrobacter infection Is this a current diagnosis for this admission?: Yes (5) Tremor Is this a current diagnosis for this admission?: Yes (6) Encephalopathy Is this a current diagnosis for this admission?: Yes (7) Essential (primary) hypertension Is this a current diagnosis for this admission?: Yes (8) Seizure Is this a current diagnosis for this admission?: Yes (9) Hypotension Is this a current diagnosis for this admission?: Yes (10) Thrombotic thrombocytopenic purpura (TTP) Is this a current diagnosis for this admission?: Yes - Transfer Medications Home Medications: Montelukast Sodium [Singulair 10 mg Tablet] 10 mg PO QPM 08/04/17 Metoprolol Succinate [Toprol Xl] 50 mg PO DAILY 02/23/18 Ergocalciferol (Vitamin D2) [Drisdol 50,000 unit (1.25MG) Capsule] 1 cap PO MENDOZA@ 1000 PRN 03/30/18 Albuterol Sulfate [Proair Hfa Inhalation Aerosol 8.5 gm Mdi] 2 puff IH Q6HP PRN 05/10/18 Dapsone 100 mg PO DAILY 05/10/18 Transfer Medications: Current Medications Acetaminophen (Tylenol 325 Mg Tablet) 650 mg NG Q4HP PRN PRN Reason: FOR PAIN OR TEMP Stop: 06/09/18 16:45 Heparin Sodium (Porcine) (Heparin Flush 10 Unit/Ml 5 Ml Disp.Syrg) 50 unit IV Q8 MILENA Stop: 06/14/18 21:59 Last Admin: 05/19/18 13:13 Dose: Not Given Heparin Sodium (Porcine) (Heparin Flush 10 Unit/Ml 5 Ml Disp.Syrg) 50 unit IV .AFTER EACH USE PRN PRN Reason: AFTER EACH INTERMITTENT USE Stop: 06/14/18 18:54 Hydralazine HCl (Apresoline Inj/Pf 20 Mg/1 Ml Sdv) 10 mg IV Q6HP PRN PRN Reason: SBP ABOVE 170 Stop: 06/17/18 02:20 Last Admin: 05/18/18 03:10 Dose: 10 mg Levetiracetam (Keppra Rtu 500 Mg/Nacl-Iso 100 Ml Premix) 500 mg in 100 mls @ 400 mls/hr IV Q12A [facility] Stop: 06/16/18 15:59 Last Admin: 05/19/18 17:03 Dose: 400 mls/hr Propofol (Diprivan Rtu 1000 Mg/100 Ml Inf.Bottle) 1,000 mg in 100 mls @ 0 mls/ hr IV CONTINUOUS PRN; Protocol; Titrate PRN Reason: THIS MED IS NOT "PRN" Stop: 06/16/18 18:37 Last Titration: 05/19/18 09:00 Dose: 0 mls/hr, 0 mls/hr Norepinephrine Bitartrate 4 mg (/ Dextrose) 250 mls @ 0 mls/hr IV CONTINUOUS PRN; Protocol; Titrate PRN Reason: THIS MED IS NOT "PRN" Stop: 06/16/18 18:38 Last Titration: 05/18/18 14:56 Dose: 0 mls/hr, 0 mls/hr Imipenem/Cilastatin Sodium 500 (mg/ Sodium Chloride) 100 mls @ 100 mls/hr IV Q12 [facility] Stop: 05/24/18 21:59 Last Infusion: 05/19/18 11:28 Dose: Infused Acyclovir Sodium 500 mg/ (Sodium Chloride) 110 mls @ 110 mls/hr IV DAILY@0600 [facility] Stop: 05/25/18 05:59 Last Infusion: 05/19/18 10:18 Dose: Infused Midazolam HCl (Versed Rtu 50 Mg/100 Ml Premix Bag) 50 mg in 100 mls @ 0 mls/hr IV CONTINUOUS PRN; Protocol; Titrate PRN Reason: THIS MED IS NOT "PRN" Stop: 05/24/18 23:03 Last Admin: 05/19/18 13:22 Dose: 2 mls/hr, 2 mls/hr Sodium Chloride (Nacl 0.9% 1000 Ml Iv Soln) 1,000 mls @ 100 mls/hr IV CONTINUOUS PRN PRN Reason: THIS MED IS NOT "PRN" Stop: 06/18/18 14:02 Last Admin: 05/19/18 14:30 Dose: 100 mls/hr Labetalol HCl (Normodyne Inj 20 Mg/4 Ml Syringe) 20 mg IV Q4HP PRN PRN Reason: Give For Sbp > [160 ] Stop: 06/16/18 15:39 Lorazepam (Ativan Inj 2 Mg/1 Ml Vial) 2 mg IV Q4HP PRN PRN Reason: FOR SEIZURES Stop: 05/24/18 16:24 Last Admin: 05/19/18 13:21 Dose: 2 mg Pharmacy Profile Note (Medication Communication Order) 1 each [facility] .NOTICE NR Stop: 06/16/18 16:44 Sucralfate (Carafate Susp 1 Gm/10 Ml Udcup) 1 gm NG Q6 MILENA Stop: 06/18/18 05:59 Last Admin: 05/19/18 17:05 Dose: 1 gm - Allergies Allergies/Adverse Reactions: No Known Allergies Allergy (Verified 05/10/18 19:31) Hospital Course Hospital Course: She has a history of chronic lymphocytic leukemia, hypertension, paroxysmal atrial fibrillation on active chemotherapy for the CLL, she is also immunocompromised she does receive intermittent intravenous immunoglobulin IVIG therapy. She presented to the emergency room on 05/10/2018 for evaluation of hemoptysis. In the emergency room CT chest without contrast was done, if demonstrated bronchiectasis in the right middle lobe and lower lobe and to a mild degree in the lingula there was considerable associated opacification in the right side suggestive of pneumonia. She has a history of gram-negative pneumonia, she was admitted previously for Pseudomonas pneumonia. She has baseline chronic kidney disease stage III the serum creatinine is about 1.8. Patient was empirically started on cefepime for the pneumonia. 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 She has had CLL for a long until recently she will be requiring chemotherapy with multiple hospital admission for infection related condition especially pneumonia. She was on anticoagulant Eliquis because of A. fib so the combination of anticoagulant and pneumonia could be the cause of the hemoptysis she was responding to antibiotic on the floor the admitting physician Dr. Chacko does not know this patient very well in the H&P indicated history of CVA ,DC she does not have CVA or DC she has had symptoms to suggest TIA in the past in the setting of atrial fibrillation that was the reason why she was on anticoagulant with Eliquis. 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 She also had EEG done, digit was abnormal he should generalized periodic discharges associated with nonconvulsive seizures and toxic metabolic dysfunction after the EEG was done patient then developed tonic-clonic convulsion, she was treated with a loading dose of Dilantin, Keppra and Ativan. She also had lumbar puncture done. The CSF was clear in appearance the cell count was normal, the protein was normal glucose was normal unlikely to be infection. She was intubated for airway protection after she had a seizure she received multiple doses of benzodiazepine , Ativan she subsequently was intubated on clinical ventilation. She was then transferred to ICU, when nasogastric tube was inserted she developed vasovagal bradycardia, there was a panic that she she was in code blue situation, CODE BLUE was activated but she never lost her pulse she received chest compression and a dose of epinephrine. The platelet count has been progressively decreasing since admission it was felt that it was not likely to be heparin- induced thrombocyopenia. Anticoagulant was held because she presented with hemoptysis on admission. 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 The LDH was elevated, the blood smear showed schizonts fragmented red blood cells, suggesting microangiopathic hemolytic anemia. The treatment for TTP is plasmapheresis which is not available at this facility. I spoke to [facility] and they were kind enough to accept her in transfer. Patient is presently off sedation but still not responding. Physical Exam Vital Signs: Temp Pulse Resp BP Pulse Ox 98.1 F 100 16 141/86 H 100 05/19/18 19:33 05/19/18 19:33 05/19/18 19:33 05/19/18 19:33 05/19/18 19:33 Pulse Oximeter Continuous Start: 05/11/18 08: 43 Freq: RTQ4 Status: Complete Document 05/17/18 12:00 [facility] (Rec: 05/17/18 12:00 [facility] [id number]) Pulse Oximetry Assessment Oxygen Saturation (92-100) 96 Oxygen Flow Rate (L/min) 2 Oxygen Delivery Method Nasal Cannula Equipment Usage Equipment in Use Continuous SpO2 Machine # 3 Intake & Output 05/18/18 05/19/18 05/20/18 06:59 06:59 06:59 Intake Total 983 2797 353 Output Total 923 508 570 Balance 58 2289 -217 Weight 53.7 kg 56.7 kg General appearance: PRESENT: no acute distress Eye exam: PRESENT: PERRLA Respiratory exam: PRESENT: clear to auscultation sendy Cardiovascular exam: PRESENT: +S1, +S2 Neurological exam: PRESENT: altered Results Laboratory Results: 05/19/18 06:20 05/19/18 06:20 05/19/18 05/19/18 05/19/18 06:20 06:20 06:20 WBC 11.7 H RBC 2.33 L Hgb 7.7 L Hct 23.1 L MCV 99 H MCH 33.2 MCHC 33.5 RDW 19.1 H Plt Count 81 L Seg Neutrophils % Not Reportable Lymphocytes % Not Reportable Monocytes % Not Reportable Eosinophils % Not Reportable Basophils % Not Reportable Absolute Neutrophils Not Reportable Absolute Lymphocytes Not Reportable Absolute Monocytes Not Reportable Absolute Eosinophils Not Reportable Absolute Basophils Not Reportable Carbonic Acid 0.98 L HCO3/H2CO3 Ratio 19:1 ABG pH 7.38 ABG pCO2 32.5 L ABG pO2 102.4 H ABG HCO3 18.9 L ABG O2 Saturation 97.7 ABG Base Excess -5.5 FiO2 30% Sodium 142.2 Potassium 4.3 Chloride 111 H Carbon Dioxide 18 L Anion Gap 13 BUN 39 H Creatinine 2.41 H Est GFR ( Amer) 24 L Est GFR (Non-Af Amer) 20 L Glucose 105 Calcium 8.3 L Magnesium 2.6 H 05/19/18 05/19/18 06:20 06:20 Creatine Kinase < 20 L CK-MB (CK-2) 0.98 Troponin I < 0.012 NT-Pro-B Natriuret Pep 2910 H Impressions: Knee X-Ray 05/10/18 13:01 IMPRESSION: 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 Chest CT 05/10/18 15:25 IMPRESSION: Right middle lobe and lower lobe pneumonia associated with bronchiectasis. This appears more extensive than on the earlier CT. Limited bronchiectasis in the lingula. Cannot exclude a limited pneumonia in the lingula. Lung Scan-VQ NM 05/10/18 15:25 IMPRESSION: For activity on ventilation and perfusion at the right lung base correlates with dense consolidation in the right middle and lower lobe on CT chest 05/10/2018. This is a triple match and is low probability for pulmonary embolus on PIOPED criteria. Head MRI 05/15/18 00:00 IMPRESSION: NORMAL MRI OF THE BRAIN WITHOUT INTRAVENOUS GADOLINIUM CONTRAST. EVIDENCE OF ACUTE STROKE: NO. Guidance Fluoroscopy 05/17/18 00:00 IMPRESSION: Lumbar puncture under fluoroscopy. No immediate complication. Lumbar Puncture 05/17/18 00:00 IMPRESSION: Lumbar puncture under fluoroscopy. No immediate complication. KUB X-Ray 05/17/18 16:46 IMPRESSION: Enteric tube is in place. Head CT 05/19/18 00:00 IMPRESSION: NO ACUTE INTRACRANIAL IMAGING FINDINGS. EVIDENCE OF ACUTE STROKE: NO. Chest X-Ray 05/19/18 06:15 IMPRESSION: Little interval change copyright 2011 [employer]- All Rights Reserved
[2018-05-20 02:18] VITALS: BP 139/86
--- NOTE | 2018-05-20 10:43 | PDOC PROGRESS REPORT ---
Subjective Progress Note for:: 05/14/18 Subjective:: She is a little more lethargic today Reason For Visit: PNEUMONIA Physical Exam Vital Signs: Temp Pulse Resp BP Pulse Ox 97.2 F 64 20 159/83 H 98 05/17/18 03:05 05/17/18 03:05 05/17/18 03:05 05/17/18 03:05 05/17/18 04:00 Pulse Oximeter Continuous Start: 05/11/18 08: 43 Freq: RTQ4 Status: Active Document 05/17/18 04:00 [facility] (Rec: 05/17/18 06:10 [facility] [id number]) Pulse Oximetry Assessment Oxygen Saturation (92-100) 98 Oxygen Flow Rate (L/min) 3 Oxygen Delivery Method Nasal Cannula Fraction of Inspired Oxygen (FIO2) 32 Equipment Usage Equipment in Use Continuous SpO2 Machine # 3 Intake & Output 05/16/18 05/17/18 05/18/18 06:59 06:59 06:59 Intake Total 1414 920 Output Total 100 Balance 1314 920 Weight 51.3 kg 48.7 kg General appearance: PRESENT: no acute distress, cooperative, disheveled, well- developed, well-nourished Head exam: PRESENT: atraumatic, normocephalic Eye exam: PRESENT: conjunctiva pale, EOMI. ABSENT: nystagmus, periorbital swelling Mouth exam: PRESENT: dry mucosa, neck supple, tongue midline Teeth exam: PRESENT: poor dentation Neck exam: ABSENT: carotid bruit, JVD, lymphadenopathy, thyromegaly, tracheal deviation, tracheostomy Respiratory exam: PRESENT: decreased breath sounds, prolonged expiratory phas, rhonchi, unlabored, wheezes. ABSENT: retraction, stridor Cardiovascular exam: PRESENT: RRR, +S1, +S2 Pulses: PRESENT: normal radial pulses GI/Abdominal exam: PRESENT: soft. ABSENT: tenderness Extremities exam: ABSENT: calf tenderness, clubbing, joint swelling, pedal edema Musculoskeletal exam: ABSENT: deformity, dislocation Neurological exam: PRESENT: awake Psychiatric exam: PRESENT: flat affect Skin exam: PRESENT: dry, warm Results Laboratory Results: 05/17/18 05:50 05/17/18 05:50 05/16/18 05/16/18 05/16/18 08:45 08:45 15:11 WBC 10.0 RBC 2.44 L Hgb 8.1 L Hct 24.1 L MCV 99 H MCH 33.3 MCHC 33.7 RDW 18.8 H Plt Count 115 L Seg Neutrophils % Not Reportable Lymphocytes % Not Reportable Monocytes % Not Reportable Eosinophils % Not Reportable Basophils % Not Reportable Absolute Neutrophils Not Reportable Absolute Lymphocytes Not Reportable Absolute Monocytes Not Reportable Absolute Eosinophils Not Reportable Absolute Basophils Not Reportable Carbonic Acid 1.31 HCO3/H2CO3 Ratio 20:1 ABG pH 7.40 ABG pCO2 43.4 ABG pO2 116.1 H ABG HCO3 26.3 H ABG O2 Saturation 98.2 H ABG Base Excess 1.4 FiO2 3L Sodium 151.0 H Potassium 3.6 Chloride 113 H Carbon Dioxide 24 Anion Gap 14 BUN 37 H Creatinine 2.13 H Est GFR ( Amer) 28 L Est GFR (Non-Af Amer) 23 L Glucose 87 Calcium 8.9 Total Bilirubin 1.1 AST 20 ALT 20 Alkaline Phosphatase 85 Total Protein 5.8 L Albumin 2.8 L 05/17/18 05/17/18 05:50 05:50 WBC 9.5 RBC 2.51 L Hgb 8.4 L Hct 24.7 L MCV 99 H MCH 33.5 H MCHC 33.9 RDW 19.3 H Plt Count 122 L Seg Neutrophils % Not Reportable Lymphocytes % Not Reportable Monocytes % Not Reportable Eosinophils % Not Reportable Basophils % Not Reportable Absolute Neutrophils Not Reportable Absolute Lymphocytes Not Reportable Absolute Monocytes Not Reportable Absolute Eosinophils Not Reportable Absolute Basophils Not Reportable Carbonic Acid HCO3/H2CO3 Ratio ABG pH ABG pCO2 ABG pO2 ABG HCO3 ABG O2 Saturation ABG Base Excess FiO2 Sodium 150.7 H Potassium 4.0 Chloride 113 H Carbon Dioxide 27 Anion Gap 11 BUN 42 H Creatinine 2.41 H Est GFR ( Amer) 24 L Est GFR (Non-Af Amer) 20 L Glucose 96 Calcium 9.3 Total Bilirubin 1.0 AST 20 ALT 12 Alkaline Phosphatase 85 Total Protein 6.0 L Albumin 3.0 L Impressions: Chest X-Ray 05/10/18 13:00 IMPRESSION: Interval decrease in infiltrate within the right middle and right lower lobes. Interval decreased right pleural thickening or effusion. Chronic bilateral interstitial changes. Knee X-Ray 05/10/18 13:01 IMPRESSION: 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 Chest CT 05/10/18 15:25 IMPRESSION: Right middle lobe and lower lobe pneumonia associated with bronchiectasis. This appears more extensive than on the earlier CT. Limited bronchiectasis in the lingula. Cannot exclude a limited pneumonia in the lingula. Lung Scan-VQ NM 05/10/18 15:25 IMPRESSION: For activity on ventilation and perfusion at the right lung base correlates with dense consolidation in the right middle and lower lobe on CT chest 05/10/2018. This is a triple match and is low probability for pulmonary embolus on PIOPED criteria. Head CT 05/15/18 00:00 IMPRESSION: No acute intracranial abnormality. EVIDENCE OF ACUTE STROKE: NO. Head MRI 05/15/18 00:00 IMPRESSION: NORMAL MRI OF THE BRAIN WITHOUT INTRAVENOUS GADOLINIUM CONTRAST. EVIDENCE OF ACUTE STROKE: NO. Assessment & Plan - Diagnosis (1) Acute kidney injury Is this a current diagnosis for this admission?: Yes Plan: Improving acute/chronic (2) Bronchiectasis Qualifiers: Bronchiectasis type: with acute exacerbation Qualified Code(s): J47.1 - Bronchiectasis with (acute) exacerbation Is this a current diagnosis for this admission?: Yes Plan: 05/10/18 13:14 Gram Stain - Preliminary Sputum Sputum Culture - Preliminary Gram Negative Rods Gram Negative Rods#2 Nebulized tobramycin (3) Chronic atrial fibrillation Is this a current diagnosis for this admission?: Yes Plan: No anticoagulation at this time (4) Hemoptysis Is this a current diagnosis for this admission?: Yes Plan: Due to chronic infection due to bronchiectasis consider checking PPD status patient's bronchiectasis could predispose her to atypical tuberculosis (5) Lymphoma Qualifiers: Lymphoma type: unspecified type Lymphoma site: unspecified region Qualified Code(s): C85.90 - Non-Hodgkin lymphoma, unspecified, unspecified site Is this a current diagnosis for this admission?: Yes Plan: Treatments may in part account for her predisposition to pneumia particularly in the face of her bronchiectasis
--- NOTE | 2018-05-20 10:45 | PDOC PROGRESS REPORT ---
Subjective Progress Note for:: 05/15/18 Subjective:: Very lethargic Reason For Visit: PNEUMONIA Physical Exam Vital Signs: Temp Pulse Resp BP Pulse Ox 97.2 F 64 20 159/83 H 98 05/17/18 03:05 05/17/18 03:05 05/17/18 03:05 05/17/18 03:05 05/17/18 04:00 Pulse Oximeter Continuous Start: 05/11/18 08: 43 Freq: RTQ4 Status: Active Document 05/17/18 04:00 [facility] (Rec: 05/17/18 06:10 [facility] [id number]) Pulse Oximetry Assessment Oxygen Saturation (92-100) 98 Oxygen Flow Rate (L/min) 3 Oxygen Delivery Method Nasal Cannula Fraction of Inspired Oxygen (FIO2) 32 Equipment Usage Equipment in Use Continuous SpO2 Machine # 3 Intake & Output 05/16/18 05/17/18 05/18/18 06:59 06:59 06:59 Intake Total 1414 920 Output Total 100 Balance 1314 920 Weight 51.3 kg 48.7 kg General appearance: PRESENT: no acute distress, disheveled, well-developed, well -nourished Head exam: PRESENT: atraumatic, normocephalic Eye exam: PRESENT: conjunctiva pale. ABSENT: nystagmus, periorbital swelling Mouth exam: PRESENT: dry mucosa, neck supple, tongue midline Teeth exam: PRESENT: poor dentation - [id number] Neck exam: ABSENT: carotid bruit, JVD, lymphadenopathy, thyromegaly, tracheal deviation, tracheostomy Respiratory exam: PRESENT: decreased breath sounds, prolonged expiratory phas, rales, rhonchi, unlabored, wheezes. ABSENT: retraction, stridor Cardiovascular exam: PRESENT: RRR, +S1, +S2 Pulses: PRESENT: normal radial pulses GI/Abdominal exam: PRESENT: soft. ABSENT: tenderness Focused psych exam: PRESENT: catatonic Skin exam: PRESENT: dry, warm Results Laboratory Results: 05/17/18 05:50 05/17/18 05:50 05/16/18 05/16/18 05/16/18 08:45 08:45 15:11 WBC 10.0 RBC 2.44 L Hgb 8.1 L Hct 24.1 L MCV 99 H MCH 33.3 MCHC 33.7 RDW 18.8 H Plt Count 115 L Seg Neutrophils % Not Reportable Lymphocytes % Not Reportable Monocytes % Not Reportable Eosinophils % Not Reportable Basophils % Not Reportable Absolute Neutrophils Not Reportable Absolute Lymphocytes Not Reportable Absolute Monocytes Not Reportable Absolute Eosinophils Not Reportable Absolute Basophils Not Reportable Carbonic Acid 1.31 HCO3/H2CO3 Ratio 20:1 ABG pH 7.40 ABG pCO2 43.4 ABG pO2 116.1 H ABG HCO3 26.3 H ABG O2 Saturation 98.2 H ABG Base Excess 1.4 FiO2 3L Sodium 151.0 H Potassium 3.6 Chloride 113 H Carbon Dioxide 24 Anion Gap 14 BUN 37 H Creatinine 2.13 H Est GFR ( Amer) 28 L Est GFR (Non-Af Amer) 23 L Glucose 87 Calcium 8.9 Total Bilirubin 1.1 AST 20 ALT 20 Alkaline Phosphatase 85 Total Protein 5.8 L Albumin 2.8 L 05/17/18 05/17/18 05:50 05:50 WBC 9.5 RBC 2.51 L Hgb 8.4 L Hct 24.7 L MCV 99 H MCH 33.5 H MCHC 33.9 RDW 19.3 H Plt Count 122 L Seg Neutrophils % Not Reportable Lymphocytes % Not Reportable Monocytes % Not Reportable Eosinophils % Not Reportable Basophils % Not Reportable Absolute Neutrophils Not Reportable Absolute Lymphocytes Not Reportable Absolute Monocytes Not Reportable Absolute Eosinophils Not Reportable Absolute Basophils Not Reportable Carbonic Acid HCO3/H2CO3 Ratio ABG pH ABG pCO2 ABG pO2 ABG HCO3 ABG O2 Saturation ABG Base Excess FiO2 Sodium 150.7 H Potassium 4.0 Chloride 113 H Carbon Dioxide 27 Anion Gap 11 BUN 42 H Creatinine 2.41 H Est GFR ( Amer) 24 L Est GFR (Non-Af Amer) 20 L Glucose 96 Calcium 9.3 Total Bilirubin 1.0 AST 20 ALT 12 Alkaline Phosphatase 85 Total Protein 6.0 L Albumin 3.0 L Impressions: Chest X-Ray 05/10/18 13:00 IMPRESSION: Interval decrease in infiltrate within the right middle and right lower lobes. Interval decreased right pleural thickening or effusion. Chronic bilateral interstitial changes. Knee X-Ray 05/10/18 13:01 IMPRESSION: 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 Chest CT 05/10/18 15:25 IMPRESSION: Right middle lobe and lower lobe pneumonia associated with bronchiectasis. This appears more extensive than on the earlier CT. Limited bronchiectasis in the lingula. Cannot exclude a limited pneumonia in the lingula. Lung Scan-VQ NM 05/10/18 15:25 IMPRESSION: For activity on ventilation and perfusion at the right lung base correlates with dense consolidation in the right middle and lower lobe on CT chest 05/10/2018. This is a triple match and is low probability for pulmonary embolus on PIOPED criteria. Head CT 05/15/18 00:00 IMPRESSION: No acute intracranial abnormality. EVIDENCE OF ACUTE STROKE: NO. Head MRI 05/15/18 00:00 IMPRESSION: NORMAL MRI OF THE BRAIN WITHOUT INTRAVENOUS GADOLINIUM CONTRAST. EVIDENCE OF ACUTE STROKE: NO. Assessment & Plan - Diagnosis (1) Acute kidney injury Is this a current diagnosis for this admission?: Yes Plan: Improving acute/chronic (2) Bronchiectasis Qualifiers: Bronchiectasis type: with acute exacerbation Qualified Code(s): J47.1 - Bronchiectasis with (acute) exacerbation Is this a current diagnosis for this admission?: Yes Plan: 05/10/18 13:14 Gram Stain - Preliminary Sputum Sputum Culture - Preliminary Gram Negative Rods Gram Negative Rods#2 Nebulized tobramycin (3) Chronic atrial fibrillation Is this a current diagnosis for this admission?: Yes Plan: No anticoagulation at this time (4) Hemoptysis Is this a current diagnosis for this admission?: Yes Plan: Due to chronic infection due to bronchiectasis consider checking PPD status patient's bronchiectasis could predispose her to atypical tuberculosis (5) Lymphoma Qualifiers: Lymphoma type: unspecified type Lymphoma site: unspecified region Qualified Code(s): C85.90 - Non-Hodgkin lymphoma, unspecified, unspecified site Is this a current diagnosis for this admission?: Yes
--- NOTE | 2018-05-20 10:48 | PDOC PROGRESS REPORT ---
Subjective Progress Note for:: 05/16/18 Subjective:: Very lethargic Reason For Visit: PNEUMONIA Physical Exam Vital Signs: Temp Pulse Resp BP Pulse Ox 97.2 F 64 20 159/83 H 98 05/17/18 03:05 05/17/18 03:05 05/17/18 03:05 05/17/18 03:05 05/17/18 04:00 Pulse Oximeter Continuous Start: 05/11/18 08: 43 Freq: RTQ4 Status: Active Document 05/17/18 04:00 [facility] (Rec: 05/17/18 06:10 [facility] [id number]) Pulse Oximetry Assessment Oxygen Saturation (92-100) 98 Oxygen Flow Rate (L/min) 3 Oxygen Delivery Method Nasal Cannula Fraction of Inspired Oxygen (FIO2) 32 Equipment Usage Equipment in Use Continuous SpO2 Machine # 3 Intake & Output 05/16/18 05/17/18 05/18/18 06:59 06:59 06:59 Intake Total 1414 920 Output Total 100 Balance 1314 920 Weight 51.3 kg 48.7 kg General appearance: PRESENT: no acute distress, well-developed, well-nourished Head exam: PRESENT: atraumatic, normocephalic Eye exam: PRESENT: conjunctiva pale. ABSENT: nystagmus, periorbital swelling, scleral icterus Mouth exam: PRESENT: dry mucosa, neck supple, tongue midline Teeth exam: PRESENT: poor dentation Neck exam: ABSENT: carotid bruit, JVD, lymphadenopathy, thyromegaly, tracheal deviation, tracheostomy Respiratory exam: PRESENT: decreased breath sounds, prolonged expiratory phas, rhonchi, unlabored, wheezes Cardiovascular exam: PRESENT: RRR, +S1, +S2 Pulses: PRESENT: normal radial pulses GI/Abdominal exam: PRESENT: soft. ABSENT: tenderness Extremities exam: PRESENT: pedal edema. ABSENT: calf tenderness, clubbing, joint swelling Musculoskeletal exam: ABSENT: deformity, dislocation Focused psych exam: PRESENT: catatonic Skin exam: PRESENT: dry, warm Results Laboratory Results: 05/17/18 05:50 05/17/18 05:50 05/16/18 05/16/18 05/16/18 08:45 08:45 15:11 WBC 10.0 RBC 2.44 L Hgb 8.1 L Hct 24.1 L MCV 99 H MCH 33.3 MCHC 33.7 RDW 18.8 H Plt Count 115 L Seg Neutrophils % Not Reportable Lymphocytes % Not Reportable Monocytes % Not Reportable Eosinophils % Not Reportable Basophils % Not Reportable Absolute Neutrophils Not Reportable Absolute Lymphocytes Not Reportable Absolute Monocytes Not Reportable Absolute Eosinophils Not Reportable Absolute Basophils Not Reportable Carbonic Acid 1.31 HCO3/H2CO3 Ratio 20:1 ABG pH 7.40 ABG pCO2 43.4 ABG pO2 116.1 H ABG HCO3 26.3 H ABG O2 Saturation 98.2 H ABG Base Excess 1.4 FiO2 3L Sodium 151.0 H Potassium 3.6 Chloride 113 H Carbon Dioxide 24 Anion Gap 14 BUN 37 H Creatinine 2.13 H Est GFR ( Amer) 28 L Est GFR (Non-Af Amer) 23 L Glucose 87 Calcium 8.9 Total Bilirubin 1.1 AST 20 ALT 20 Alkaline Phosphatase 85 Total Protein 5.8 L Albumin 2.8 L 05/17/18 05/17/18 05:50 05:50 WBC 9.5 RBC 2.51 L Hgb 8.4 L Hct 24.7 L MCV 99 H MCH 33.5 H MCHC 33.9 RDW 19.3 H Plt Count 122 L Seg Neutrophils % Not Reportable Lymphocytes % Not Reportable Monocytes % Not Reportable Eosinophils % Not Reportable Basophils % Not Reportable Absolute Neutrophils Not Reportable Absolute Lymphocytes Not Reportable Absolute Monocytes Not Reportable Absolute Eosinophils Not Reportable Absolute Basophils Not Reportable Carbonic Acid HCO3/H2CO3 Ratio ABG pH ABG pCO2 ABG pO2 ABG HCO3 ABG O2 Saturation ABG Base Excess FiO2 Sodium 150.7 H Potassium 4.0 Chloride 113 H Carbon Dioxide 27 Anion Gap 11 BUN 42 H Creatinine 2.41 H Est GFR ( Amer) 24 L Est GFR (Non-Af Amer) 20 L Glucose 96 Calcium 9.3 Total Bilirubin 1.0 AST 20 ALT 12 Alkaline Phosphatase 85 Total Protein 6.0 L Albumin 3.0 L Impressions: Chest X-Ray 05/10/18 13:00 IMPRESSION: Interval decrease in infiltrate within the right middle and right lower lobes. Interval decreased right pleural thickening or effusion. Chronic bilateral interstitial changes. Knee X-Ray 05/10/18 13:01 IMPRESSION: 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 Chest CT 05/10/18 15:25 IMPRESSION: Right middle lobe and lower lobe pneumonia associated with bronchiectasis. This appears more extensive than on the earlier CT. Limited bronchiectasis in the lingula. Cannot exclude a limited pneumonia in the lingula. Lung Scan-VQ NM 05/10/18 15:25 IMPRESSION: For activity on ventilation and perfusion at the right lung base correlates with dense consolidation in the right middle and lower lobe on CT chest 05/10/2018. This is a triple match and is low probability for pulmonary embolus on PIOPED criteria. Head CT 05/15/18 00:00 IMPRESSION: No acute intracranial abnormality. EVIDENCE OF ACUTE STROKE: NO. Head MRI 05/15/18 00:00 IMPRESSION: NORMAL MRI OF THE BRAIN WITHOUT INTRAVENOUS GADOLINIUM CONTRAST. EVIDENCE OF ACUTE STROKE: NO. Assessment & Plan - Diagnosis (1) Acute kidney injury Is this a current diagnosis for this admission?: Yes Plan: Improving acute/chronic (2) Bronchiectasis Qualifiers: Bronchiectasis type: with acute exacerbation Qualified Code(s): J47.1 - Bronchiectasis with (acute) exacerbation Is this a current diagnosis for this admission?: Yes Plan: 05/10/18 13:14 Gram Stain - Preliminary Sputum Sputum Culture - Preliminary Gram Negative Rods Gram Negative Rods#2 Nebulized tobramycin (3) Chronic atrial fibrillation Is this a current diagnosis for this admission?: Yes Plan: No anticoagulation at this time (4) Hemoptysis Is this a current diagnosis for this admission?: Yes Plan: Due to chronic infection due to bronchiectasis consider checking PPD status patient's bronchiectasis could predispose her to atypical tuberculosis (5) Lymphoma Qualifiers: Lymphoma type: unspecified type Lymphoma site: unspecified region Qualified Code(s): C85.90 - Non-Hodgkin lymphoma, unspecified, unspecified site Is this a current diagnosis for this admission?: Yes Plan: Treatments may in part account for her predisposition to pneumia particularly in the face of her bronchiectasis
--- NOTE | 2018-05-20 10:50 | PDOC PROGRESS REPORT ---
Subjective Progress Note for:: 05/17/18 Subjective:: Very lethargic Reason For Visit: PNEUMONIA Physical Exam Vital Signs: Temp Pulse Resp BP Pulse Ox 91.6 F L 56 L 18 149/86 H 100 05/18/18 08:00 05/18/18 08:00 05/18/18 08:00 05/18/18 08:00 05/18/18 08:00 Pulse Oximeter Continuous Start: 05/11/18 08: 43 Freq: RTQ4 Status: Complete Document 05/17/18 12:00 [facility] (Rec: 05/17/18 12:00 [facility] [id number]) Pulse Oximetry Assessment Oxygen Saturation (92-100) 96 Oxygen Flow Rate (L/min) 2 Oxygen Delivery Method Nasal Cannula Equipment Usage Equipment in Use Continuous SpO2 Machine # 3 Intake & Output 05/17/18 05/18/18 05/19/18 06:59 06:59 06:59 Intake Total 920 733 Output Total 925 75 Balance 920 -192 -75 Weight 48.7 kg 53.7 kg General appearance: PRESENT: no acute distress, disheveled, well-developed, well -nourished. ABSENT: cooperative Head exam: PRESENT: atraumatic, normocephalic Eye exam: PRESENT: conjunctiva pale. ABSENT: nystagmus, periorbital swelling Mouth exam: PRESENT: dry mucosa, neck supple, tongue midline, other - ET tube in place Neck exam: ABSENT: carotid bruit, JVD, lymphadenopathy, thyromegaly, tracheal deviation, tracheostomy Respiratory exam: PRESENT: decreased breath sounds, prolonged expiratory phas, rhonchi, unlabored, wheezes Cardiovascular exam: PRESENT: RRR, +S1 Pulses: PRESENT: normal radial pulses GI/Abdominal exam: PRESENT: soft. ABSENT: tenderness Gentrourinary exam: PRESENT: indwelling catheter Extremities exam: PRESENT: pedal edema. ABSENT: calf tenderness, clubbing, joint swelling Musculoskeletal exam: ABSENT: ambulatory, deformity, dislocation Neurological exam: ABSENT: awake Skin exam: PRESENT: dry, warm Results Laboratory Results: 05/18/18 06:00 05/18/18 06:00 05/17/18 05/17/18 05/17/18 14:10 14:10 14:10 WBC RBC Hgb Hct MCV MCH MCHC RDW Plt Count Seg Neutrophils % Lymphocytes % Monocytes % Eosinophils % Basophils % Absolute Neutrophils Absolute Lymphocytes Absolute Monocytes Absolute Eosinophils Absolute Basophils Carbonic Acid HCO3/H2CO3 Ratio ABG pH ABG pCO2 ABG pO2 ABG HCO3 ABG O2 Saturation ABG Base Excess FiO2 Sodium Potassium Chloride Carbon Dioxide Anion Gap BUN Creatinine Est GFR ( Amer) Est GFR (Non-Af Amer) Glucose Calcium Magnesium Total Bilirubin AST ALT Alkaline Phosphatase Total Protein Albumin Triglycerides Urine Color Urine Appearance Urine pH Ur Specific Dieterich Urine Protein Urine Glucose (UA) Urine Ketones Urine Blood Urine Nitrite Ur Leukocyte Esterase Urine WBC (Auto) Urine RBC (Auto) Fluid Tube Number CSF Volume CSF Appearance CSF Color CSF WBC CSF RBC CSF Color (1) CSF Appearance (1) CSF Color (2) CSF Appearance (2) CSF Color (3) CSF Appearance (3) CSF Color (4) CSF Appearance (4) CSF Comment CSF CULT NOT ORDERED CSF Glucose 56 CSF Total Protein PEP Cancelled CSF Total Protein 38 CSF Prealbumin Cancelled CSF Albumin Cancelled CSF Bbzje-4-Idyxovzc Cancelled CSF Qzgne-2-Xtxiwncq Cancelled CSF Beta Globulin Cancelled CSF Gamma Globulin Cancelled CSF PEP M-Alexis Cancelled 05/17/18 05/17/18 05/17/18 14:10 15:07 16:23 WBC RBC Hgb Hct MCV MCH MCHC RDW Plt Count Seg Neutrophils % Lymphocytes % Monocytes % Eosinophils % Basophils % Absolute Neutrophils Absolute Lymphocytes Absolute Monocytes Absolute Eosinophils Absolute Basophils Carbonic Acid 1.54 H HCO3/H2CO3 Ratio 15:1 ABG pH 7.27 L ABG pCO2 51.1 H ABG pO2 87.6 ABG HCO3 23.2 ABG O2 Saturation 95.4 ABG Base Excess -3.6 FiO2 4L Sodium Potassium Chloride Carbon Dioxide Anion Gap BUN Creatinine Est GFR ( Amer) Est GFR (Non-Af Amer) Glucose Calcium Magnesium 1.8 Total Bilirubin AST ALT Alkaline Phosphatase Total Protein Albumin Triglycerides Urine Color Urine Appearance Urine pH Ur Specific Dieterich Urine Protein Urine Glucose (UA) Urine Ketones Urine Blood Urine Nitrite Ur Leukocyte Esterase Urine WBC (Auto) Urine RBC (Auto) Fluid Tube Number 2 CSF Volume 8.0 CSF Appearance CLEAR CSF Color COLORLESS CSF WBC 3 CSF RBC 360 CSF Color (1) COLORLESS CSF Appearance (1) CLEAR CSF Color (2) COLORLESS CSF Appearance (2) CLEAR CSF Color (3) COLORLESS CSF Appearance (3) CLEAR CSF Color (4) COLORLESS CSF Appearance (4) CLEAR CSF Comment CSF Glucose CSF Total Protein PEP CSF Total Protein CSF Prealbumin CSF Albumin CSF Debsu-9-Hyjxglme CSF Phtan-8-Ngeaxsgw CSF Beta Globulin CSF Gamma Globulin CSF PEP M-Alexis 05/17/18 05/17/18 05/17/18 16:47 16:47 16:47 WBC 10.7 H RBC 2.25 L Hgb 7.5 L Hct 22.5 L MCV 100 H MCH 33.5 H MCHC 33.4 RDW 18.9 H Plt Count 110 L Seg Neutrophils % Not Reportable Lymphocytes % Not Reportable Monocytes % Not Reportable Eosinophils % Not Reportable Basophils % Not Reportable Absolute Neutrophils Not Reportable Absolute Lymphocytes Not Reportable Absolute Monocytes Not Reportable Absolute Eosinophils Not Reportable Absolute Basophils Not Reportable Carbonic Acid HCO3/H2CO3 Ratio ABG pH ABG pCO2 ABG pO2 ABG HCO3 ABG O2 Saturation ABG Base Excess FiO2 Sodium 151.8 H Potassium 3.3 L Chloride 116 H Carbon Dioxide 23 Anion Gap 13 BUN 44 H Creatinine 2.25 H Est GFR ( Amer) 26 L Est GFR (Non-Af Amer) 22 L Glucose 104 Calcium 8.5 Magnesium Total Bilirubin AST ALT Alkaline Phosphatase Total Protein Albumin Triglycerides 162 H Urine Color Urine Appearance Urine pH Ur Specific Dieterich Urine Protein Urine Glucose (UA) Urine Ketones Urine Blood Urine Nitrite Ur Leukocyte Esterase Urine WBC (Auto) Urine RBC (Auto) Fluid Tube Number CSF Volume CSF Appearance CSF Color CSF WBC CSF RBC CSF Color (1) CSF Appearance (1) CSF Color (2) CSF Appearance (2) CSF Color (3) CSF Appearance (3) CSF Color (4) CSF Appearance (4) CSF Comment CSF Glucose CSF Total Protein PEP CSF Total Protein CSF Prealbumin CSF Albumin CSF Uqgjb-5-Fdacittv CSF Buhsd-4-Kdxkkgpy CSF Beta Globulin CSF Gamma Globulin CSF PEP M-Alexis 05/17/18 05/17/18 05/17/18 18:47 19:05 20:00 WBC 9.6 RBC 2.29 L Hgb 7.7 L Hct 23.0 L MCV 101 H MCH 33.8 H MCHC 33.6 RDW 19.2 H Plt Count 99 L Seg Neutrophils % Not Reportable Lymphocytes % Not Reportable Monocytes % Not Reportable Eosinophils % Not Reportable Basophils % Not Reportable Absolute Neutrophils Not Reportable Absolute Lymphocytes Not Reportable Absolute Monocytes Not Reportable Absolute Eosinophils Not Reportable Absolute Basophils Not Reportable Carbonic Acid 1.28 HCO3/H2CO3 Ratio 16:1 ABG pH 7.32 L ABG pCO2 42.5 ABG pO2 111.8 H ABG HCO3 21.4 ABG O2 Saturation 97.7 ABG Base Excess -4.6 FiO2 60% Sodium Potassium Chloride Carbon Dioxide Anion Gap BUN Creatinine Est GFR ( Amer) Est GFR (Non-Af Amer) Glucose Calcium Magnesium Total Bilirubin AST ALT Alkaline Phosphatase Total Protein Albumin Triglycerides Urine Color STRAW Urine Appearance CLEAR Urine pH 6.0 Ur Specific Dieterich 1.008 Urine Protein 30 H Urine Glucose (UA) NEGATIVE Urine Ketones NEGATIVE Urine Blood SMALL H Urine Nitrite NEGATIVE Ur Leukocyte Esterase NEGATIVE Urine WBC (Auto) 1 Urine RBC (Auto) 1 Fluid Tube Number CSF Volume CSF Appearance CSF Color CSF WBC CSF RBC CSF Color (1) CSF Appearance (1) CSF Color (2) CSF Appearance (2) CSF Color (3) CSF Appearance (3) CSF Color (4) CSF Appearance (4) CSF Comment CSF Glucose CSF Total Protein PEP CSF Total Protein CSF Prealbumin CSF Albumin CSF Pchdi-6-Xeofrbzh CSF Mdagt-0-Escqmjxr CSF Beta Globulin CSF Gamma Globulin CSF PEP M-Alexis 05/17/18 05/17/18 05/18/18 20:00 20:00 06:00 WBC RBC Hgb Hct MCV MCH MCHC RDW Plt Count Seg Neutrophils % Lymphocytes % Monocytes % Eosinophils % Basophils % Absolute Neutrophils Absolute Lymphocytes Absolute Monocytes Absolute Eosinophils Absolute Basophils Carbonic Acid 0.78 L HCO3/H2CO3 Ratio 25:1 ABG pH 7.50 H ABG pCO2 25.9 L ABG pO2 112.2 H ABG HCO3 19.5 L ABG O2 Saturation 98.5 H ABG Base Excess -3.1 FiO2 30% Sodium 149.8 H Potassium 3.4 L Chloride 115 H Carbon Dioxide 20 L Anion Gap 15 BUN 43 H Creatinine 2.24 H Est GFR ( Amer) 26 L Est GFR (Non-Af Amer) 22 L Glucose 196 H Calcium 8.4 Magnesium 4.1 H D Total Bilirubin 1.3 AST 176 H ALT 58 H Alkaline Phosphatase 101 Total Protein 5.4 L Albumin 2.7 L Triglycerides Urine Color Urine Appearance Urine pH Ur Specific Dieterich Urine Protein Urine Glucose (UA) Urine Ketones Urine Blood Urine Nitrite Ur Leukocyte Esterase Urine WBC (Auto) Urine RBC (Auto) Fluid Tube Number CSF Volume CSF Appearance CSF Color CSF WBC CSF RBC CSF Color (1) CSF Appearance (1) CSF Color (2) CSF Appearance (2) CSF Color (3) CSF Appearance (3) CSF Color (4) CSF Appearance (4) CSF Comment CSF Glucose CSF Total Protein PEP CSF Total Protein CSF Prealbumin CSF Albumin CSF Rigst-4-Isznjcyu CSF Phecd-4-Syzcolbs CSF Beta Globulin CSF Gamma Globulin CSF PEP M-Alexis 05/18/18 05/18/18 06:00 06:00 WBC 9.6 RBC 2.30 L Hgb 7.8 L Hct 22.6 L MCV 98 H MCH 33.8 H MCHC 34.4 RDW 19.3 H Plt Count 87 L Seg Neutrophils % Not Reportable Lymphocytes % Not Reportable Monocytes % Not Reportable Eosinophils % Not Reportable Basophils % Not Reportable Absolute Neutrophils Not Reportable Absolute Lymphocytes Not Reportable Absolute Monocytes Not Reportable Absolute Eosinophils Not Reportable Absolute Basophils Not Reportable Carbonic Acid HCO3/H2CO3 Ratio ABG pH ABG pCO2 ABG pO2 ABG HCO3 ABG O2 Saturation ABG Base Excess FiO2 Sodium 147.2 H Potassium 3.3 L Chloride 114 H Carbon Dioxide 19 L Anion Gap 14 BUN 41 H Creatinine 1.89 H Est GFR ( Amer) 32 L Est GFR (Non-Af Amer) 26 L Glucose 140 H Calcium 8.5 Magnesium 3.5 H Total Bilirubin AST ALT Alkaline Phosphatase Total Protein Albumin Triglycerides Urine Color Urine Appearance Urine pH Ur Specific Dieterich Urine Protein Urine Glucose (UA) Urine Ketones Urine Blood Urine Nitrite Ur Leukocyte Esterase Urine WBC (Auto) Urine RBC (Auto) Fluid Tube Number CSF Volume CSF Appearance CSF Color CSF WBC CSF RBC CSF Color (1) CSF Appearance (1) CSF Color (2) CSF Appearance (2) CSF Color (3) CSF Appearance (3) CSF Color (4) CSF Appearance (4) CSF Comment CSF Glucose CSF Total Protein PEP CSF Total Protein CSF Prealbumin CSF Albumin CSF Wgrcv-2-Iuozhmrl CSF Edlfe-5-Klszqgmc CSF Beta Globulin CSF Gamma Globulin CSF PEP M-Alexis Impressions: Knee X-Ray 05/10/18 13:01 IMPRESSION: 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 Chest CT 05/10/18 15:25 IMPRESSION: Right middle lobe and lower lobe pneumonia associated with bronchiectasis. This appears more extensive than on the earlier CT. Limited bronchiectasis in the lingula. Cannot exclude a limited pneumonia in the lingula. Lung Scan-VQ NM 05/10/18 15:25 IMPRESSION: For activity on ventilation and perfusion at the right lung base correlates with dense consolidation in the right middle and lower lobe on CT chest 05/10/2018. This is a triple match and is low probability for pulmonary embolus on PIOPED criteria. Head CT 05/15/18 00:00 IMPRESSION: No acute intracranial abnormality. EVIDENCE OF ACUTE STROKE: NO. Head MRI 05/15/18 00:00 IMPRESSION: NORMAL MRI OF THE BRAIN WITHOUT INTRAVENOUS GADOLINIUM CONTRAST. EVIDENCE OF ACUTE STROKE: NO. Guidance Fluoroscopy 05/17/18 00:00 IMPRESSION: Lumbar puncture under fluoroscopy. No immediate complication. Lumbar Puncture 05/17/18 00:00 IMPRESSION: Lumbar puncture under fluoroscopy. No immediate complication. KUB X-Ray 05/17/18 16:46 IMPRESSION: Enteric tube is in place. Chest X-Ray 05/18/18 06:15 IMPRESSION: No interval change. Assessment & Plan - Diagnosis (1) Acute kidney injury Is this a current diagnosis for this admission?: Yes Plan: Improving acute/chronic (2) Bronchiectasis Qualifiers: Bronchiectasis type: with acute exacerbation Qualified Code(s): J47.1 - Bronchiectasis with (acute) exacerbation Is this a current diagnosis for this admission?: Yes Plan: 05/10/18 13:14 Gram Stain - Preliminary Sputum Sputum Culture - Preliminary Gram Negative Rods Gram Negative Rods#2 Nebulized tobramycin (3) Chronic atrial fibrillation Is this a current diagnosis for this admission?: Yes Plan: No anticoagulation at this time (4) Hemoptysis Is this a current diagnosis for this admission?: Yes Plan: Due to chronic infection due to bronchiectasis consider checking PPD status patient's bronchiectasis could predispose her to atypical tuberculosis (5) Lymphoma Qualifiers: Lymphoma type: unspecified type Lymphoma site: unspecified region Qualified Code(s): C85.90 - Non-Hodgkin lymphoma, unspecified, unspecified site Is this a current diagnosis for this admission?: Yes Plan: Treatments may in part account for her predisposition to pneumia particularly in the face of her bronchiectasis - Time Total Critical Time (Minutes): 55
--- NOTE | 2018-05-20 10:53 | PDOC PROGRESS REPORT ---
Subjective Progress Note for:: 05/18/18 Subjective:: intubated and sedated Reason For Visit: PNEUMONIA Physical Exam Vital Signs: Temp Pulse Resp BP Pulse Ox 91.6 F L 56 L 18 149/86 H 100 05/18/18 08:00 05/18/18 08:00 05/18/18 08:00 05/18/18 08:00 05/18/18 08:00 Pulse Oximeter Continuous Start: 05/11/18 08: 43 Freq: RTQ4 Status: Complete Document 05/17/18 12:00 [facility] (Rec: 05/17/18 12:00 [facility] [id number]) Pulse Oximetry Assessment Oxygen Saturation (92-100) 96 Oxygen Flow Rate (L/min) 2 Oxygen Delivery Method Nasal Cannula Equipment Usage Equipment in Use Continuous SpO2 Machine # 3 Intake & Output 05/17/18 05/18/18 05/19/18 06:59 06:59 06:59 Intake Total 920 733 Output Total 925 75 Balance 920 -192 -75 Weight 48.7 kg 53.7 kg General appearance: PRESENT: no acute distress, well-developed, well-nourished. ABSENT: cooperative, disheveled Head exam: PRESENT: atraumatic, normocephalic Eye exam: PRESENT: conjunctiva pale. ABSENT: nystagmus, periorbital swelling, scleral icterus Mouth exam: PRESENT: dry mucosa, neck supple, tongue midline, other - ET tube Teeth exam: PRESENT: poor dentation Neck exam: ABSENT: carotid bruit, JVD, lymphadenopathy, thyromegaly, tracheal deviation, tracheostomy Respiratory exam: PRESENT: decreased breath sounds, prolonged expiratory phas, rales, rhonchi, symmetrical, unlabored. ABSENT: retraction, stridor, tachypnea Cardiovascular exam: PRESENT: RRR, +S1, +S2 Pulses: PRESENT: normal radial pulses GI/Abdominal exam: PRESENT: soft. ABSENT: tenderness Extremities exam: PRESENT: pedal edema. ABSENT: calf tenderness, clubbing, joint swelling Musculoskeletal exam: ABSENT: ambulatory, deformity, dislocation Neurological exam: ABSENT: awake - [id number] Skin exam: PRESENT: dry, warm Results Laboratory Results: 05/18/18 06:00 05/18/18 06:00 05/17/18 05/17/18 05/17/18 14:10 14:10 14:10 WBC RBC Hgb Hct MCV MCH MCHC RDW Plt Count Seg Neutrophils % Lymphocytes % Monocytes % Eosinophils % Basophils % Absolute Neutrophils Absolute Lymphocytes Absolute Monocytes Absolute Eosinophils Absolute Basophils Carbonic Acid HCO3/H2CO3 Ratio ABG pH ABG pCO2 ABG pO2 ABG HCO3 ABG O2 Saturation ABG Base Excess FiO2 Sodium Potassium Chloride Carbon Dioxide Anion Gap BUN Creatinine Est GFR ( Amer) Est GFR (Non-Af Amer) Glucose Calcium Magnesium Total Bilirubin AST ALT Alkaline Phosphatase Total Protein Albumin Triglycerides Urine Color Urine Appearance Urine pH Ur Specific Farina Urine Protein Urine Glucose (UA) Urine Ketones Urine Blood Urine Nitrite Ur Leukocyte Esterase Urine WBC (Auto) Urine RBC (Auto) Fluid Tube Number CSF Volume CSF Appearance CSF Color CSF WBC CSF RBC CSF Color (1) CSF Appearance (1) CSF Color (2) CSF Appearance (2) CSF Color (3) CSF Appearance (3) CSF Color (4) CSF Appearance (4) CSF Comment CSF CULT NOT ORDERED CSF Glucose 56 CSF Total Protein PEP Cancelled CSF Total Protein 38 CSF Prealbumin Cancelled CSF Albumin Cancelled CSF Wwfan-8-Tcgbwcsi Cancelled CSF Thoxe-6-Aokxyfpj Cancelled CSF Beta Globulin Cancelled CSF Gamma Globulin Cancelled CSF PEP M-Alexis Cancelled 05/17/18 05/17/18 05/17/18 14:10 15:07 16:23 WBC RBC Hgb Hct MCV MCH MCHC RDW Plt Count Seg Neutrophils % Lymphocytes % Monocytes % Eosinophils % Basophils % Absolute Neutrophils Absolute Lymphocytes Absolute Monocytes Absolute Eosinophils Absolute Basophils Carbonic Acid 1.54 H HCO3/H2CO3 Ratio 15:1 ABG pH 7.27 L ABG pCO2 51.1 H ABG pO2 87.6 ABG HCO3 23.2 ABG O2 Saturation 95.4 ABG Base Excess -3.6 FiO2 4L Sodium Potassium Chloride Carbon Dioxide Anion Gap BUN Creatinine Est GFR ( Amer) Est GFR (Non-Af Amer) Glucose Calcium Magnesium 1.8 Total Bilirubin AST ALT Alkaline Phosphatase Total Protein Albumin Triglycerides Urine Color Urine Appearance Urine pH Ur Specific Farina Urine Protein Urine Glucose (UA) Urine Ketones Urine Blood Urine Nitrite Ur Leukocyte Esterase Urine WBC (Auto) Urine RBC (Auto) Fluid Tube Number 2 CSF Volume 8.0 CSF Appearance CLEAR CSF Color COLORLESS CSF WBC 3 CSF RBC 360 CSF Color (1) COLORLESS CSF Appearance (1) CLEAR CSF Color (2) COLORLESS CSF Appearance (2) CLEAR CSF Color (3) COLORLESS CSF Appearance (3) CLEAR CSF Color (4) COLORLESS CSF Appearance (4) CLEAR CSF Comment CSF Glucose CSF Total Protein PEP CSF Total Protein CSF Prealbumin CSF Albumin CSF Oejpz-5-Wncolgov CSF Zocxn-5-Kiwdwxws CSF Beta Globulin CSF Gamma Globulin CSF PEP M-Alexis 05/17/18 05/17/18 05/17/18 16:47 16:47 16:47 WBC 10.7 H RBC 2.25 L Hgb 7.5 L Hct 22.5 L MCV 100 H MCH 33.5 H MCHC 33.4 RDW 18.9 H Plt Count 110 L Seg Neutrophils % Not Reportable Lymphocytes % Not Reportable Monocytes % Not Reportable Eosinophils % Not Reportable Basophils % Not Reportable Absolute Neutrophils Not Reportable Absolute Lymphocytes Not Reportable Absolute Monocytes Not Reportable Absolute Eosinophils Not Reportable Absolute Basophils Not Reportable Carbonic Acid HCO3/H2CO3 Ratio ABG pH ABG pCO2 ABG pO2 ABG HCO3 ABG O2 Saturation ABG Base Excess FiO2 Sodium 151.8 H Potassium 3.3 L Chloride 116 H Carbon Dioxide 23 Anion Gap 13 BUN 44 H Creatinine 2.25 H Est GFR ( Amer) 26 L Est GFR (Non-Af Amer) 22 L Glucose 104 Calcium 8.5 Magnesium Total Bilirubin AST ALT Alkaline Phosphatase Total Protein Albumin Triglycerides 162 H Urine Color Urine Appearance Urine pH Ur Specific Farina Urine Protein Urine Glucose (UA) Urine Ketones Urine Blood Urine Nitrite Ur Leukocyte Esterase Urine WBC (Auto) Urine RBC (Auto) Fluid Tube Number CSF Volume CSF Appearance CSF Color CSF WBC CSF RBC CSF Color (1) CSF Appearance (1) CSF Color (2) CSF Appearance (2) CSF Color (3) CSF Appearance (3) CSF Color (4) CSF Appearance (4) CSF Comment CSF Glucose CSF Total Protein PEP CSF Total Protein CSF Prealbumin CSF Albumin CSF Homng-7-Mhonsopl CSF Cnxsr-0-Formksfz CSF Beta Globulin CSF Gamma Globulin CSF PEP M-Alexis 05/17/18 05/17/18 05/17/18 18:47 19:05 20:00 WBC 9.6 RBC 2.29 L Hgb 7.7 L Hct 23.0 L MCV 101 H MCH 33.8 H MCHC 33.6 RDW 19.2 H Plt Count 99 L Seg Neutrophils % Not Reportable Lymphocytes % Not Reportable Monocytes % Not Reportable Eosinophils % Not Reportable Basophils % Not Reportable Absolute Neutrophils Not Reportable Absolute Lymphocytes Not Reportable Absolute Monocytes Not Reportable Absolute Eosinophils Not Reportable Absolute Basophils Not Reportable Carbonic Acid 1.28 HCO3/H2CO3 Ratio 16:1 ABG pH 7.32 L ABG pCO2 42.5 ABG pO2 111.8 H ABG HCO3 21.4 ABG O2 Saturation 97.7 ABG Base Excess -4.6 FiO2 60% Sodium Potassium Chloride Carbon Dioxide Anion Gap BUN Creatinine Est GFR ( Amer) Est GFR (Non-Af Amer) Glucose Calcium Magnesium Total Bilirubin AST ALT Alkaline Phosphatase Total Protein Albumin Triglycerides Urine Color STRAW Urine Appearance CLEAR Urine pH 6.0 Ur Specific Farina 1.008 Urine Protein 30 H Urine Glucose (UA) NEGATIVE Urine Ketones NEGATIVE Urine Blood SMALL H Urine Nitrite NEGATIVE Ur Leukocyte Esterase NEGATIVE Urine WBC (Auto) 1 Urine RBC (Auto) 1 Fluid Tube Number CSF Volume CSF Appearance CSF Color CSF WBC CSF RBC CSF Color (1) CSF Appearance (1) CSF Color (2) CSF Appearance (2) CSF Color (3) CSF Appearance (3) CSF Color (4) CSF Appearance (4) CSF Comment CSF Glucose CSF Total Protein PEP CSF Total Protein CSF Prealbumin CSF Albumin CSF Mgvfe-9-Auzyxjlg CSF Qwttj-8-Rlhiiucg CSF Beta Globulin CSF Gamma Globulin CSF PEP M-Alexis 05/17/18 05/17/18 05/18/18 20:00 20:00 06:00 WBC RBC Hgb Hct MCV MCH MCHC RDW Plt Count Seg Neutrophils % Lymphocytes % Monocytes % Eosinophils % Basophils % Absolute Neutrophils Absolute Lymphocytes Absolute Monocytes Absolute Eosinophils Absolute Basophils Carbonic Acid 0.78 L HCO3/H2CO3 Ratio 25:1 ABG pH 7.50 H ABG pCO2 25.9 L ABG pO2 112.2 H ABG HCO3 19.5 L ABG O2 Saturation 98.5 H ABG Base Excess -3.1 FiO2 30% Sodium 149.8 H Potassium 3.4 L Chloride 115 H Carbon Dioxide 20 L Anion Gap 15 BUN 43 H Creatinine 2.24 H Est GFR ( Amer) 26 L Est GFR (Non-Af Amer) 22 L Glucose 196 H Calcium 8.4 Magnesium 4.1 H D Total Bilirubin 1.3 AST 176 H ALT 58 H Alkaline Phosphatase 101 Total Protein 5.4 L Albumin 2.7 L Triglycerides Urine Color Urine Appearance Urine pH Ur Specific Farina Urine Protein Urine Glucose (UA) Urine Ketones Urine Blood Urine Nitrite Ur Leukocyte Esterase Urine WBC (Auto) Urine RBC (Auto) Fluid Tube Number CSF Volume CSF Appearance CSF Color CSF WBC CSF RBC CSF Color (1) CSF Appearance (1) CSF Color (2) CSF Appearance (2) CSF Color (3) CSF Appearance (3) CSF Color (4) CSF Appearance (4) CSF Comment CSF Glucose CSF Total Protein PEP CSF Total Protein CSF Prealbumin CSF Albumin CSF Oiazn-9-Liilmzjh CSF Appyi-6-Vacesntz CSF Beta Globulin CSF Gamma Globulin CSF PEP M-Alexis 05/18/18 05/18/18 06:00 06:00 WBC 9.6 RBC 2.30 L Hgb 7.8 L Hct 22.6 L MCV 98 H MCH 33.8 H MCHC 34.4 RDW 19.3 H Plt Count 87 L Seg Neutrophils % Not Reportable Lymphocytes % Not Reportable Monocytes % Not Reportable Eosinophils % Not Reportable Basophils % Not Reportable Absolute Neutrophils Not Reportable Absolute Lymphocytes Not Reportable Absolute Monocytes Not Reportable Absolute Eosinophils Not Reportable Absolute Basophils Not Reportable Carbonic Acid HCO3/H2CO3 Ratio ABG pH ABG pCO2 ABG pO2 ABG HCO3 ABG O2 Saturation ABG Base Excess FiO2 Sodium 147.2 H Potassium 3.3 L Chloride 114 H Carbon Dioxide 19 L Anion Gap 14 BUN 41 H Creatinine 1.89 H Est GFR ( Amer) 32 L Est GFR (Non-Af Amer) 26 L Glucose 140 H Calcium 8.5 Magnesium 3.5 H Total Bilirubin AST ALT Alkaline Phosphatase Total Protein Albumin Triglycerides Urine Color Urine Appearance Urine pH Ur Specific Farina Urine Protein Urine Glucose (UA) Urine Ketones Urine Blood Urine Nitrite Ur Leukocyte Esterase Urine WBC (Auto) Urine RBC (Auto) Fluid Tube Number CSF Volume CSF Appearance CSF Color CSF WBC CSF RBC CSF Color (1) CSF Appearance (1) CSF Color (2) CSF Appearance (2) CSF Color (3) CSF Appearance (3) CSF Color (4) CSF Appearance (4) CSF Comment CSF Glucose CSF Total Protein PEP CSF Total Protein CSF Prealbumin CSF Albumin CSF Jmllf-6-Nfohiphq CSF Jeidm-5-Apiprhbn CSF Beta Globulin CSF Gamma Globulin CSF PEP M-Alexis Impressions: Knee X-Ray 05/10/18 13:01 IMPRESSION: 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 Chest CT 05/10/18 15:25 IMPRESSION: Right middle lobe and lower lobe pneumonia associated with bronchiectasis. This appears more extensive than on the earlier CT. Limited bronchiectasis in the lingula. Cannot exclude a limited pneumonia in the lingula. Lung Scan-VQ NM 05/10/18 15:25 IMPRESSION: For activity on ventilation and perfusion at the right lung base correlates with dense consolidation in the right middle and lower lobe on CT chest 05/10/2018. This is a triple match and is low probability for pulmonary embolus on PIOPED criteria. Head CT 05/15/18 00:00 IMPRESSION: No acute intracranial abnormality. EVIDENCE OF ACUTE STROKE: NO. Head MRI 05/15/18 00:00 IMPRESSION: NORMAL MRI OF THE BRAIN WITHOUT INTRAVENOUS GADOLINIUM CONTRAST. EVIDENCE OF ACUTE STROKE: NO. Guidance Fluoroscopy 05/17/18 00:00 IMPRESSION: Lumbar puncture under fluoroscopy. No immediate complication. Lumbar Puncture 05/17/18 00:00 IMPRESSION: Lumbar puncture under fluoroscopy. No immediate complication. KUB X-Ray 05/17/18 16:46 IMPRESSION: Enteric tube is in place. Chest X-Ray 05/18/18 06:15 IMPRESSION: No interval change. Assessment & Plan - Diagnosis (1) Acute kidney injury Is this a current diagnosis for this admission?: Yes Plan: Resolved (2) Bronchiectasis Qualifiers: Bronchiectasis type: with acute exacerbation Qualified Code(s): J47.1 - Bronchiectasis with (acute) exacerbation Is this a current diagnosis for this admission?: Yes Plan: 05/10/18 13:14 Gram Stain - Preliminary Sputum Sputum Culture - Preliminary Gram Negative Rods Gram Negative Rods#2 Nebulized tobramycin (3) Chronic atrial fibrillation Is this a current diagnosis for this admission?: Yes Plan: No anticoagulation at this time (4) Hemoptysis Is this a current diagnosis for this admission?: Yes Plan: Asked for but I was hematology consult is d-dimer and fibrin split products were elevated (5) Lymphoma Qualifiers: Lymphoma type: unspecified type Lymphoma site: unspecified region Qualified Code(s): C85.90 - Non-Hodgkin lymphoma, unspecified, unspecified site Is this a current diagnosis for this admission?: Yes Plan: Treatments may in part account for her predisposition to pneumia particularly in the face of her bronchiectasis - Time Total Critical Time (Minutes): 50
--- NOTE | 2018-05-20 10:56 | PDOC PROGRESS REPORT ---
Subjective Progress Note for:: 05/19/18 Subjective:: intubated and sedated Reason For Visit: PNEUMONIA Physical Exam Vital Signs: Temp Pulse Resp BP Pulse Ox 98.2 F 99 21 H 106/78 99 05/19/18 10:00 05/19/18 10:00 05/19/18 10:00 05/19/18 10:00 05/19/18 10:00 Pulse Oximeter Continuous Start: 05/11/18 08: 43 Freq: RTQ4 Status: Complete Document 05/17/18 12:00 [facility] (Rec: 05/17/18 12:00 [facility] [id number]) Pulse Oximetry Assessment Oxygen Saturation (92-100) 96 Oxygen Flow Rate (L/min) 2 Oxygen Delivery Method Nasal Cannula Equipment Usage Equipment in Use Continuous SpO2 Machine # 3 Intake & Output 05/18/18 05/19/18 05/20/18 06:59 06:59 06:59 Intake Total 983 2797 210 Output Total 925 508 120 Balance 58 2289 90 Weight 53.7 kg 56.7 kg General appearance: PRESENT: no acute distress, disheveled, well-developed Head exam: PRESENT: atraumatic, normocephalic Eye exam: PRESENT: conjunctiva pale. ABSENT: nystagmus, periorbital swelling, scleral icterus Mouth exam: PRESENT: dry mucosa, neck supple, tongue midline, other - ET tube Neck exam: ABSENT: carotid bruit, JVD, lymphadenopathy, thyromegaly, tracheal deviation, tracheostomy Respiratory exam: PRESENT: decreased breath sounds, prolonged expiratory phas, rales, rhonchi, unlabored. ABSENT: retraction, stridor Cardiovascular exam: PRESENT: RRR, +S1, +S2 Pulses: PRESENT: normal radial pulses - [id number] GI/Abdominal exam: PRESENT: soft. ABSENT: tenderness Gentrourinary exam: PRESENT: indwelling catheter - 14170 Extremities exam: PRESENT: pedal edema. ABSENT: calf tenderness, full ROM, joint swelling Musculoskeletal exam: ABSENT: ambulatory, deformity, dislocation Neurological exam: ABSENT: awake Skin exam: PRESENT: dry, warm Results Laboratory Results: 05/19/18 06:20 05/19/18 06:20 05/18/18 05/19/18 05/19/18 17:03 06:20 06:20 WBC RBC Hgb Hct MCV MCH MCHC RDW Plt Count Seg Neutrophils % Lymphocytes % Monocytes % Eosinophils % Basophils % Absolute Neutrophils Absolute Lymphocytes Absolute Monocytes Absolute Eosinophils Absolute Basophils Carbonic Acid 0.98 L HCO3/H2CO3 Ratio 19:1 ABG pH 7.38 ABG pCO2 32.5 L ABG pO2 102.4 H ABG HCO3 18.9 L ABG O2 Saturation 97.7 ABG Base Excess -5.5 FiO2 30% Sodium 142.2 Potassium 4.1 4.3 Chloride 111 H Carbon Dioxide 18 L Anion Gap 13 BUN 39 H Creatinine 2.41 H Est GFR ( Amer) 24 L Est GFR (Non-Af Amer) 20 L Glucose 105 Calcium 8.3 L Magnesium 2.6 H 05/19/18 06:20 WBC 11.7 H RBC 2.33 L Hgb 7.7 L Hct 23.1 L MCV 99 H MCH 33.2 MCHC 33.5 RDW 19.1 H Plt Count 81 L Seg Neutrophils % Not Reportable Lymphocytes % Not Reportable Monocytes % Not Reportable Eosinophils % Not Reportable Basophils % Not Reportable Absolute Neutrophils Not Reportable Absolute Lymphocytes Not Reportable Absolute Monocytes Not Reportable Absolute Eosinophils Not Reportable Absolute Basophils Not Reportable Carbonic Acid HCO3/H2CO3 Ratio ABG pH ABG pCO2 ABG pO2 ABG HCO3 ABG O2 Saturation ABG Base Excess FiO2 Sodium Potassium Chloride Carbon Dioxide Anion Gap BUN Creatinine Est GFR ( Amer) Est GFR (Non-Af Amer) Glucose Calcium Magnesium 05/19/18 05/19/18 06:20 06:20 Creatine Kinase < 20 L CK-MB (CK-2) 0.98 Troponin I < 0.012 NT-Pro-B Natriuret Pep 2910 H Impressions: Knee X-Ray 05/10/18 13:01 IMPRESSION: 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 Chest CT 05/10/18 15:25 IMPRESSION: Right middle lobe and lower lobe pneumonia associated with bronchiectasis. This appears more extensive than on the earlier CT. Limited bronchiectasis in the lingula. Cannot exclude a limited pneumonia in the lingula. Lung Scan-VQ NM 05/10/18 15:25 IMPRESSION: For activity on ventilation and perfusion at the right lung base correlates with dense consolidation in the right middle and lower lobe on CT chest 05/10/2018. This is a triple match and is low probability for pulmonary embolus on PIOPED criteria. Head CT 05/15/18 00:00 IMPRESSION: No acute intracranial abnormality. EVIDENCE OF ACUTE STROKE: NO. Head MRI 05/15/18 00:00 IMPRESSION: NORMAL MRI OF THE BRAIN WITHOUT INTRAVENOUS GADOLINIUM CONTRAST. EVIDENCE OF ACUTE STROKE: NO. Guidance Fluoroscopy 05/17/18 00:00 IMPRESSION: Lumbar puncture under fluoroscopy. No immediate complication. Lumbar Puncture 05/17/18 00:00 IMPRESSION: Lumbar puncture under fluoroscopy. No immediate complication. KUB X-Ray 05/17/18 16:46 IMPRESSION: Enteric tube is in place. Chest X-Ray 05/19/18 06:15 IMPRESSION: Little interval change copyright 2011 [email or web address]- All Rights Reserved Assessment & Plan - Diagnosis (1) Acute kidney injury Is this a current diagnosis for this admission?: Yes Plan: Resolved (2) Bronchiectasis Qualifiers: Bronchiectasis type: with acute exacerbation Qualified Code(s): J47.1 - Bronchiectasis with (acute) exacerbation Is this a current diagnosis for this admission?: Yes Plan: 05/10/18 13:14 Gram Stain - Preliminary Sputum Sputum Culture - Preliminary Gram Negative Rods Gram Negative Rods#2 Nebulized tobramycin (3) Chronic atrial fibrillation Is this a current diagnosis for this admission?: Yes Plan: No anticoagulation at this time (4) Hemoptysis Is this a current diagnosis for this admission?: Yes Plan: see hematology consult (5) Lymphoma Qualifiers: Lymphoma type: unspecified type Lymphoma site: unspecified region Qualified Code(s): C85.90 - Non-Hodgkin lymphoma, unspecified, unspecified site Is this a current diagnosis for this admission?: Yes Plan: Treatments may in part account for her predisposition to pneumia particularly in the face of her bronchiectasis - Time Total Critical Time (Minutes): 40
[2018-05-21 01:37] LABS: HSV I DNA Negative (Negative)
[2018-05-21 07:15] LABS: HSV II DNA Negative (Negative)
== END 2018-05-20 03:00 | disposition short-term general hospital (02) | DRG 208 ==
LOC: ER 11:57 → EH 15:59 → 3S 18:32 → ICU 05-17 16:11
PROVIDERS: ADMIT Family Medicine; ATTEND Internal Medicine
PROC: 5A1945Z Respiratory Ventilation, 24-96 Consecutive Hours (ICD-10-PCS; principal; 2018-05-17)
PROC: 0BH17EZ Insertion of Endotracheal Airway into Trachea, Via Natural or Artificial Opening (ICD-10-PCS; 2018-05-17)
PROC: 009U3ZX Drainage of Spinal Canal, Percutaneous Approach, Diagnostic (ICD-10-PCS; 2018-05-17)
PROC: B01BZZZ Fluoroscopy of Spinal Cord (ICD-10-PCS; 2018-05-17)
DX: J15.1 Pneumonia due to Pseudomonas (principal); J96.01 Acute respiratory failure with hypoxia; M31.1 Thrombotic microangiopathy; C91.10 Chronic lymphocytic leukemia of B-cell type not having achieved remission; N17.9 Acute kidney failure, unspecified; J47.1 Bronchiectasis with (acute) exacerbation; R04.2 Hemoptysis; G93.40 Encephalopathy, unspecified; R56.9 Unspecified convulsions; N18.3 Chronic kidney disease, stage 3 (moderate); I12.9 Hypertensive chronic kidney disease with stage 1 through stage 4 chronic kidney disease, or unspecified chronic kidney disease; T48.6X5A Adverse effect of antiasthmatics, initial encounter; J15.8 Pneumonia due to other specified bacteria; I48.2 Chronic atrial fibrillation; D63.1 Anemia in chronic kidney disease; R79.1 Abnormal coagulation profile; M17.11 Unilateral primary osteoarthritis, right knee; D69.59 Other secondary thrombocytopenia; A60.00 Herpesviral infection of urogenital system, unspecified; I95.9 Hypotension, unspecified; Z90.81 Acquired absence of spleen; Z86.711 Personal history of pulmonary embolism; Z79.02 Long term (current) use of antithrombotics/antiplatelets; Z79.899 Other long term (current) drug therapy; Z86.14 Personal history of Methicillin resistant Staphylococcus aureus infection; Z87.891 Personal history of nicotine dependence; Z82.49 Family history of ischemic heart disease and other diseases of the circulatory system; Z92.25 Personal history of immunosuppression therapy
CPT/HCPCS: 31500; 36415; 36600; 62270; 70450; 70551; 71045; 71046; 71250; 74018; 77003; 78582; 80048; 80053; 81001; 82272; 82550; 82553; 82803; 82945; 82962; 83605; 83615; 83735; 83880; 84132; 84157; 84478; 84484; 85025; 85379; 85384; 85610; 85730; 86403; 87015; 87040; 87070; 87077; 87116; 87186; 87205; 87206; 87210; 87252; 87529; 89050; 93005; 93010; 94002; 94003; 94640; 94660; 94762; 95819; 96361; 96374; 96375; 99291; A9540; A9567; J0133; J0171; J0330; J0360; J0692; J0743; J1165; J1642; J1953; J2060; J2250; J2704; J3010; J3475; J3480; J3490; J7030; J7050; J7060; J7120; J7620; J7685; Q9969

== ENCOUNTER 2018-06-19 08:50 | Inpatient (IN) | payer MEDICARE, MEDICAID ==
--- NOTE | 2018-06-19 09:00 | ER Document Report ---
ED General - General Stated Complaint: SHORTNESS OF BREATH Time Seen by Provider: 06/19/18 08:59 Notes: Patient is a 72-year-old female that presents to the emergency department for chief complaint of cough and shortness of breath. Patient states that she was recently discharged from [facility], after having complications with the surgery that resulted in seizure, she was being treated with pneumonia while at the hospital as well, was recently discharged within the last few days, she has been having cough and shortness of breath and producing a thick sputum at home, her pulse ox was 85% on room air, she states she occasionally wears oxygen as needed at home. She does have a history of COPD. She was also febrile with a temperature of 101.5 degrees Fahrenheit. She denies having any associated chest pain, nausea, vomiting or abdominal pain. No Other complaints at this time. Past Medical History: History of leukemia in remission, COPD, hypertension, recent diagnosis of seizure disorder Past Surgical History: Sinus surgery Social History: Denies current tobacco, alcohol or drug use. Family History: Reviewed and noncontributory for presenting illness Allergies: Reviewed, see documented allergy list. REVIEW OF SYSTEMS: Other than noted above, the 12 point review of systems was reviewed with the patient and were negative, all pertinent findings are included in the HPI. PHYSICAL EXAMINATION: Vital signs reviewed, nursing noted reviewed. GENERAL: Elderly female, appears uncomfortable, wet cough noted on exam HEAD: Atraumatic, normocephalic. EYES: Eyes appear normal, extraocular movements intact, sclera anicteric, conjunctiva are normal. ENT: nares patent, oropharynx clear without exudates. Moist mucous membranes. NECK: Normal range of motion, supple without lymphadenopathy LUNGS: Coarse lung sounds noted throughout, rhonchi, and some expiratory wheezing noted, she also had a wet cough. Mild respiratory distress HEART: Heart rate tachycardic, regular rhythm. ABDOMEN: Soft, nontender, normoactive bowel sounds. No rebound, guarding, or rigidity. No masses appreciated. EXTREMITIES: Nontender, good range of motion, no pitting or edema. NEUROLOGICAL: No focal neurological deficits. Moves all extremities spontaneous ly Motor and sensory grossly intact on exam. PSYCH: Normal mood, normal affect. SKIN: Warm, Dry, normal turgor, no rashes or lesions noted on exposed skin TRAVEL OUTSIDE OF THE [place] IN LAST 30 DAYS: No - Related Data Allergies/Adverse Reactions: levofloxacin Allergy (Verified 06/19/18 09:32) oxycodone Allergy (Verified 06/19/18 09:32) sulfamethoxazole Allergy (Verified 06/19/18 09:32) Past Medical History - Social History Smoking Status: Former Smoker Family History: Hypertension - Past Medical History Cardiac Medical History: Reports: Hx Atrial Fibrillation - paroxysmal type, Hx Hypertension Denies: Hx Heart Attack Pulmonary Medical History: Reports: Hx Bronchitis, Hx COPD, Hx Pneumonia Denies: Hx Asthma, Hx Tuberculosis Neurological Medical History: Denies: Hx Cerebrovascular Accident, Hx Seizures Renal/ Medical History: Denies: Hx Peritoneal Dialysis Malignancy Medical History: Reports: Hx Leukemia - chronic lymphocytic leukemia Musculoskeletal Medical History: Reports Hx Arthritis - osteoarthritis Psychiatric Medical History: Denies: Hx Depression Infectious Medical History: Reports: Hx MRSA Past Surgical History: Reports: Hx Abdominal Surgery - spleenectomy. Denies: Hx Bowel Surgery - Immunizations Hx Diphtheria, Pertussis, Tetanus Vaccination: Yes Hx Pneumococcal Vaccination: 08/18/11 Physical Exam - Vital signs Vitals: Pulse Ox 92 06/19/18 08:55 Course - Re-evaluation Re-evalutation: Patient seen and examined vital signs reviewed. Laboratory data and imaging were ordered as appropriate for the patient's presenting symptoms and complaint, with consideration of any critical or life threatening conditions that may be associated with their obtained history and exam as noted above. Patient was treated with DuoNeb breathing treatment, and after chest x-ray resulted, demonstrating bilateral pneumonia, patient was started on broad-spect rum antibiotics including cefepime for antipseudomonal coverage, and vancomycin, for coverage of healthcare associated pneumonia, patient did have prior sputum cultures that did grow Pseudomonas as well as Citrobacter, that were both sensitive to cefepime. Results were reviewed when available and demonstrated bilateral lower lobe pneumonia, no leukocytosis, renal function at baseline, the rest of her blood work was essentially unremarkable, with the exception of thrombocytopenia, which appeared to be stable based on prior labs, negative influenza testing, and negative urine The patient was re-evaluated and was improved on supplemental oxygen, and breathing treatment Evaluation was most consistent with healthcare associated pneumonia, hypoxia, and thrombocytopenia which was noted on her blood work, and consistent with her prior labs and unchanged. Results were discussed with the patient at this point after careful consideration I feel that that patient should be admitted to the hospital. This was discussed with the patient that it is in the best interest for their care to be admitted for further evaluation and management. Patient agreed with this plan of care. A call was placed to the admitted physician, Dr. Tristan who graciously accepted the patient onto their service. *Note is created using voice recognition software and may contain spelling, syntax or grammatical errors. Laboratory 06/19/18 06/19/18 06/19/18 09:07 09:07 09:07 WBC 8.5 RBC 4.07 Hgb 12.5 Hct 37.9 MCV 93 MCH 30.8 MCHC 33.1 RDW 24.0 H Plt Count 86 L Total Counted 100 Seg Neutrophils % Not Reportable Seg Neuts % (Manual) 19 L Lymphocytes % Not Reportable Lymphocytes % (Manual) 69 H Monocytes % Not Reportable Monocytes % (Manual) 4 Eosinophils % Not Reportable Eosinophils % (Manual) 7 H Basophils % Not Reportable Basophils % (Manual) 0 Metamyelocytes % 1 H Absolute Neutrophils Not Reportable Abs Neuts (Manual) 1.7 Absolute Lymphocytes Not Reportable Abs Lymphs (Manual) 5.9 H Absolute Monocytes Not Reportable Abs Monocytes (Manual) 0.3 Absolute Eosinophils Not Reportable Absolute Eos (Manual) 0.6 Absolute Basophils Not Reportable Abs Basophils (Manual) 0.0 Smudge Cells PRESENT Large Platelets PRESENT Platelet Comment DECREASED Polychromasia SLIGHT Hypochromasia 1+ Poikilocytosis 2+ Anisocytosis 3+ Target Cells SLIGHT Ovalocytes 1+ [place] Bodies PRESENT Schistocytes SLIGHT PT INR VBG pH VBG pCO2 VBG HCO3 VBG Base Excess Sodium 142.9 Potassium 4.0 Chloride 108 H Carbon Dioxide 26 Anion Gap 9 BUN 33 H Creatinine 1.80 H Est GFR ( Amer) 34 L Est GFR (Non-Af Amer) 28 L Glucose 98 POC Glucose Lactic Acid 1.1 Calcium 8.9 Total Bilirubin 0.9 Direct Bilirubin 0.4 Neonat Total Bilirubin Not Reportable Neonat Direct Bilirubin Not Reportable Neonat Indirect Bili Not Reportable AST 27 ALT 13 Alkaline Phosphatase 128 H Total Protein 6.2 L Albumin 3.3 L Urine Color Urine Appearance Urine pH Ur Specific [place] Urine Protein Urine Glucose (UA) Urine Ketones Urine Blood Urine Nitrite Urine Bilirubin Urine Urobilinogen Ur Leukocyte Esterase Urine WBC (Auto) Urine RBC (Auto) Amorphous Sediment Auto Urine Ascorbic Acid 06/19/18 06/19/18 06/19/18 09:07 09:07 09:13 WBC RBC Hgb Hct MCV MCH MCHC RDW Plt Count Total Counted Seg Neutrophils % Seg Neuts % (Manual) Lymphocytes % Lymphocytes % (Manual) Monocytes % Monocytes % (Manual) Eosinophils % Eosinophils % (Manual) Basophils % Basophils % (Manual) Metamyelocytes % Absolute Neutrophils Abs Neuts (Manual) Absolute Lymphocytes Abs Lymphs (Manual) Absolute Monocytes Abs Monocytes (Manual) Absolute Eosinophils Absolute Eos (Manual) Absolute Basophils Abs Basophils (Manual) Smudge Cells Large Platelets Platelet Comment Polychromasia Hypochromasia Poikilocytosis Anisocytosis Target Cells Ovalocytes [place] Bodies Schistocytes PT 12.8 INR 0.92 VBG pH 7.33 VBG pCO2 56.2 VBG HCO3 28.6 VBG Base Excess 1.4 Sodium Potassium Chloride Carbon Dioxide Anion Gap BUN Creatinine Est GFR ( Amer) Est GFR (Non-Af Amer) Glucose POC Glucose 101 Lactic Acid Calcium Total Bilirubin Direct Bilirubin Neonat Total Bilirubin Neonat Direct Bilirubin Neonat Indirect Bili AST ALT Alkaline Phosphatase Total Protein Albumin Urine Color Urine Appearance Urine pH Ur Specific [place] Urine Protein Urine Glucose (UA) Urine Ketones Urine Blood Urine Nitrite Urine Bilirubin Urine Urobilinogen Ur Leukocyte Esterase Urine WBC (Auto) Urine RBC (Auto) Amorphous Sediment Auto Urine Ascorbic Acid 06/19/18 10:10 WBC RBC Hgb Hct MCV MCH MCHC RDW Plt Count Total Counted Seg Neutrophils % Seg Neuts % (Manual) Lymphocytes % Lymphocytes % (Manual) Monocytes % Monocytes % (Manual) Eosinophils % Eosinophils % (Manual) Basophils % Basophils % (Manual) Metamyelocytes % Absolute Neutrophils Abs Neuts (Manual) Absolute Lymphocytes Abs Lymphs (Manual) Absolute Monocytes Abs Monocytes (Manual) Absolute Eosinophils Absolute Eos (Manual) Absolute Basophils Abs Basophils (Manual) Smudge Cells Large Platelets Platelet Comment Polychromasia Hypochromasia Poikilocytosis Anisocytosis Target Cells Ovalocytes [place] Bodies Schistocytes PT INR VBG pH VBG pCO2 VBG HCO3 VBG Base Excess Sodium Potassium Chloride Carbon Dioxide Anion Gap BUN Creatinine Est GFR ( Amer) Est GFR (Non-Af Amer) Glucose POC Glucose Lactic Acid Calcium Total Bilirubin Direct Bilirubin Neonat Total Bilirubin Neonat Direct Bilirubin Neonat Indirect Bili AST ALT Alkaline Phosphatase Total Protein Albumin Urine Color YELLOW Urine Appearance SLIGHTLY-CLOUDY Urine pH 5.0 Ur Specific [place] 1.009 Urine Protein NEGATIVE Urine Glucose (UA) NEGATIVE Urine Ketones NEGATIVE Urine Blood NEGATIVE Urine Nitrite NEGATIVE Urine Bilirubin NEGATIVE Urine Urobilinogen NEGATIVE Ur Leukocyte Esterase NEGATIVE Urine WBC (Auto) 0 Urine RBC (Auto) 0 Amorphous Sediment Auto TRACE Urine Ascorbic Acid NEGATIVE Chest X-Ray 06/19/18 10:37 IMPRESSION: Bilateral pneumonia or asymmetric edema. Clinical correlation is needed. - Vital Signs Vital signs: Temp Pulse Resp BP Pulse Ox 98.7 F 15 174/86 H 99 06/19/18 12:01 06/19/18 14:01 06/19/18 14:01 06/19/18 14:01 - Laboratory Result Diagrams: 06/19/18 09:07 06/19/18 09:07 Laboratory results interpreted by me: 06/19/18 06/19/18 09:07 09:07 RDW 24.0 H Plt Count 86 L Seg Neuts % (Manual) 19 L Lymphocytes % (Manual) 69 H Eosinophils % (Manual) 7 H Metamyelocytes % 1 H Abs Lymphs (Manual) 5.9 H Chloride 108 H BUN 33 H Creatinine 1.80 H Est GFR ( Amer) 34 L Est GFR (Non-Af Amer) 28 L Alkaline Phosphatase 128 H Total Protein 6.2 L Albumin 3.3 L - EKG Interpretation by Me Additional EKG results interpreted by me: EKG demonstrates sinus tachycardia with a ventricular rate of 105 bpm, left axis deviation, QTC 450 ms, there is minimal ST depressions in leads II and aVF, this is compared to prior EKG from 05/10/2018, where that ST depression in leads II and aVF appears to be new. Discharge - Discharge Clinical Impression: Healthcare-associated pneumonia, Hypoxia, Thrombocytopenia Chronic kidney disease Qualifiers: Chronic kidney disease stage: unspecified stage Qualified Code(s): N18.9 - Chronic kidney disease, unspecified Condition: Stable Disposition: HOME, SELF-CARE Admitting Provider: Kun Unit Admitted: [facility]
[2018-06-19] MEDS ORDERED: IPRATROPIUM/ALBUTEROL 0.5-2.5 MG/3 ML AMPUL NEB ONE (09:09)
[2018-06-19 09:24] LABS: VENOUS BLOOD BASE EXCESS 1.4 mmol/L; VENOUS BLOOD HCO3 28.6 mmol/L (20-32); VENOUS BLOOD PCO2 56.2 mmHg (35-63); VENOUS BLOOD PH 7.33 (7.30-7.42)
[2018-06-19 09:29] LABS: INTERNATIONAL RATION (INR) 0.92; PROTHROMBIN TIME 12.8 SEC (11.4-15.4)
[2018-06-19 09:39] LABS: HEMATOCRIT 37.9 % (36.0-47.0); HEMOGLOBIN 12.5 g/dL (12.0-15.5); MEAN CORPUSCULAR HEMOGLOBIN 30.8 pg (27.0-33.4); MEAN CORPUSCULAR HGB CONC 33.1 g/dL (32.0-36.0); MEAN CORPUSCULAR VOLUME 93 fl (80-97); RED BLOOD COUNT 4.07 10^6/uL (3.72-5.28); WHITE BLOOD COUNT 8.5 10^3/uL (4.0-10.5)
[2018-06-19 09:48] LABS: ALANINE AMINOTRANSFERASE 13 U/L (9-52); ALBUMIN 3.3 g/dL (3.5-5.0); ALKALINE PHOSPHATASE 128 U/L (38-126); ANION GAP 9 (5-19); ASPARTATE AMINO TRANSFERASE 27 U/L (14-36); BILIRUBIN,DIRECT 0.4 mg/dL (0.0-0.4); BILIRUBIN,TOTAL 0.9 mg/dL (0.2-1.3); BLOOD UREA NITROGEN 33 mg/dL (7-20); CALCIUM 8.9 mg/dL (8.4-10.2); CARBON DIOXIDE 26 mmol/L (22-30); CHLORIDE 108 mmol/L (98-107); GLUCOSE 98 mg/dL (75-110); SODIUM 142.9 mmol/L (137-145); TOTAL PROTEIN 6.2 g/dL (6.3-8.2)
[2018-06-19 10:04] LABS: PLATELET COUNT 86 10^3/uL (150-450)
[2018-06-19 10:07] LABS: ABSOLUTE LYMPHOCYTES# (MANUAL) 5.9 10^3/uL (0.5-4.7); ABSOLUTE MONOCYTES # (MANUAL) 0.3 10^3/uL (0.1-1.4); ABSOLUTE NEUTROPHILS# (MANUAL) 1.7 10^3/uL (1.7-8.2); BASOPHILS % (MANUAL) 0 % (0-2); EOSINOPHILS % (MANUAL) 7 % (0-6); LYMPHOCYTES % (MANUAL) 69 % (13-45); METAMYELOCYTES % (MANUAL) 1 % (0); MONOCYTES % (MANUAL) 4 % (3-13); SEGMENTED NEUTROPHILS % (MAN) 19 % (42-78); TOTAL CELLS COUNTED 100
[2018-06-19 10:09] LABS: SMUDGE CELLS PRESENT
[2018-06-19 10:10] LABS: ANISOCYTOSIS 3+; HOWELL-JOLLY BODIES PRESENT; HYPOCHROMASIA 1+; OVALOCYTES 1+; PLATELET COMMENT DECREASED; PLATELET LARGE PRESENT; POIKILOCYTOSIS 2+; POLYCHROMASIA SLIGHT; SCHISTOCYTES SLIGHT; TARGET CELLS SLIGHT
[2018-06-19 10:44] LABS: AMORPHOUS SEDIMENT,URINE TRACE /HPF; APPEARANCE,URINE SLIGHTLY-CLOUDY; BILIRUBIN,URINE NEGATIVE (NEGATIVE); COLOR,URINE YELLOW; GLUCOSE, URINE NEGATIVE (NEGATIVE); KETONES,URINE NEGATIVE (NEGATIVE); LEUKOCYTE ESTERASE,URINE NEGATIVE (NEGATIVE); NITRITE,URINE NEGATIVE (NEGATIVE); PROTEIN,URINE NEGATIVE (NEGATIVE); URINE SPECIFIC GRAVITY 1.009; UROBILINOGEN,URINE NEGATIVE mg/dL (<2.0)
--- NOTE | 2018-06-19 11:07 | RADIOLOGY REPORT (SQ) ---
EXAM DESCRIPTION: CHEST SINGLE VIEW COMPLETED DATE/TIME: 06/19/2018 10:58 am REASON FOR STUDY: shortness of breath COMPARISON: 05/19/2018 NUMBER OF VIEWS: One view. TECHNIQUE: Single frontal radiographic image of the chest acquired. LIMITATIONS: Positioning. FINDINGS: LUNGS AND PLEURA: Subsegmental airspace disease in both lower lobes, right greater the lef t. MEDIASTINUM AND HEART: Stable heart size and mediastinal structures. SUPPORT DEVICES: Appropriate location without change. BONY STRUCTURES: No acute findings. HARDWARE: None. OTHER: No other significant finding. IMPRESSION: Bilateral pneumonia or asymmetric edema. Clinical correlation is needed. Reading location - IP/workstation name: [email or web address]
[2018-06-19] MEDS ORDERED: VANCOMYCIN HCL INJ 1000 MG VIAL IV ONE (11:27)
[2018-06-19] MEDS ORDERED: CEFEPIME 1 GM/D5W RTU 1 GM/50 ML RTUPB IV SCH (11:30)
[2018-06-19 13:57] LABS: A TYPE INFLUENZA AG NEGATIVE (NEGATIVE); B INFLUENZA AG NEGATIVE (NEGATIVE)
[2018-06-19 16:43] LABS: PATH REVIEW PATHOLOGIST REVIEWED
--- NOTE | 2018-06-19 17:16 | EKG REPORT ---
SEVERITY:- BORDERLINE ECG - SINUS TACHYCARDIA BORDERLINE LEFT AXIS DEVIATION MINIMAL ST DEPRESSION : Confirmed by: Angie Hannon MD 19-Jun-2018 17:16:30
[2018-06-19] MEDS: IPRATROPIUM/ALBUTEROL 0.5-2.5 MG/3 ML AMPUL NEB SCH (21:13)
--- NOTE | 2018-06-19 21:25 | RADIOLOGY REPORT (SQ) ---
CT CHEST WITHOUT IV CONTRAST HISTORY: Pneumonia . COMPARISON: None. TECHNIQUE: CT scan of the chest without IV contrast. This exam was performed according to our departmental dose-optimization program, which includes automated exposure control, adjustment of the mA and/or kV according to patient size and/or use of iterative reconstruction technique. FINDINGS: The thyroid gland is unremarkable. There is no mediastinal or axillary adenopathy. Limited evaluation for hilar adenopathy without IV contrast. Heart size is mildly enlarged. No pericardial effusion is seen. There is an area of consolidation in the right middle and lower lobes. Additionally there are scattered areas of parenchymal scarring in both lungs. No pleural effusions or pneumothorax. Limited views of the upper abdomen demonstrate no acute findings. The osseous structures are intact. IMPRESSION: 1. Consolidation predominantly in the right middle and lower lobes suggesting pneumonia. 2. No pleural effusions or pneumothorax.
[2018-06-19] MEDS ORDERED: IPRATROPIUM/ALBUTEROL 0.5-2.5 MG/3 ML AMPUL NEB SCH (21:30)
[2018-06-19] MEDS ORDERED: FAMOTIDINE 20 MG TABLET PO SCH (21:30)
--- NOTE | 2018-06-19 21:46 | PDOC H&P ---
History of Present Illness Admission Date/PCP: 06/19/18 12:32 ERUM HENAO MD History of Present Illness: JANET ABBOTT is 72 year old female , She is well-known to me, she was rec ently admitted in this hospital on 05/10/2018 and she was transferred at on 05/19/2018 to [facility] because she was diagnosed as having TTP it was felt that she needed plasmapheresis which is not available in this hospital.She has a history of CLL the last time she had Pseudomonas pneumonia,and also Citrobacter both organisms sensitive to cefepime.She came to emergency room for evaluation of shortness of breath cough, the cough is productive of sputum yellow color emergency room chest x-ray was done that suggest pneumonia subsequent CT chest of the lung was done demonstrated consolidation in the right middle lobe and lower lobe Past Medical History Cardiac Medical History: Reports: Atrial Fibrillation - paroxysmal type, Hypertension Denies: Myocardial Infarction Pulmonary Medical History: Reports: Bronchitis, Chronic Obstructive Pulmonary Disease (COPD), Pneumonia Denies: Asthma, Tuberculosis Neurological Medical History: Denies: Seizures Malignancy Medical History: Reports: Leukemia - chronic lymphocytic leukemia Musculoskeltal Medical History: Reports: Arthritis - osteoarthritis Psychiatric Medical History: Denies: Depression Hematology: Denies: Anemia Infectious Medical History: Reports: Methicillin-Resistant Staph Aureus Social History Smoking Status: Former Smoker Frequency of Alcohol Use: None Hx Recreational Drug Use: No Drugs: None Hx Prescription Drug Abuse: No Family History Family History: Hypertension Parental Family History Reviewed: Yes Children Family History Reviewed: Yes Sibling(s) Family History Reviewed.: Yes Medication/Allergy Home Medications: Budesonide/Formoterol Fumarate [Symbicort HFA 160-4.5 mcg Inhaler 6 gm] 2 puff I H Q12 06/19/18 Famotidine [Pepcid 20 mg Tablet] 20 mg PO DAILY 06/19/18 Ipratropium/Albuterol Sulfate [Duoneb 3 ml Ampul] 1 vial NEB Q6 06/19/18 Levetiracetam [Keppra 500 mg Tablet] 500 mg PO Q12 06/19/18 Metoprolol Tartrate [Lopressor 25 mg Tablet] 12.5 mg PO Q12 06/19/18 Allergies/Adverse Reactions: levofloxacin Allergy (Verified 06/19/18 09:32) oxycodone Allergy (Verified 06/19/18 09:32) sulfamethoxazole Allergy (Verified 06/19/18 09:32) Physical Exam Vital Signs: Temp Pulse Resp BP Pulse Ox 97.7 F 56 L 16 178/98 H 96 06/19/18 18:54 06/19/18 19:00 06/19/18 18:54 06/19/18 18:54 06/19/18 18:54 Intake & Output 06/18/18 06/19/18 06/20/18 06:59 06:59 06:59 Intake Total 50 Balance 50 Weight 49.9 kg General appearance: PRESENT: no acute distress Eye exam: PRESENT: PERRLA Respiratory exam: PRESENT: rhonchi Cardiovascular exam: PRESENT: +S1, +S2 GI/Abdominal exam: PRESENT: soft Neurological exam: PRESENT: alert, CN II-XII grossly intact Results Laboratory Results: 06/19/18 09:07 06/19/18 09:07 06/19/18 06/19/18 06/19/18 09:07 09:07 09:07 WBC 8.5 RBC 4.07 Hgb 12.5 Hct 37.9 MCV 93 MCH 30.8 MCHC 33.1 RDW 24.0 H Plt Count 86 L Seg Neutrophils % Not Reportable Lymphocytes % Not Reportable Monocytes % Not Reportable Eosinophils % Not Reportable Basophils % Not Reportable Absolute Neutrophils Not Reportable Absolute Lymphocytes Not Reportable Absolute Monocytes Not Reportable Absolute Eosinophils Not Reportable Absolute Basophils Not Reportable VBG pH VBG pCO2 VBG HCO3 VBG Base Excess Sodium 142.9 Potassium 4.0 Chloride 108 H Carbon Dioxide 26 Anion Gap 9 BUN 33 H Creatinine 1.80 H Est GFR ( Amer) 34 L Est GFR (Non-Af Amer) 28 L Glucose 98 Lactic Acid 1.1 Calcium 8.9 Total Bilirubin 0.9 AST 27 ALT 13 Alkaline Phosphatase 128 H Total Protein 6.2 L Albumin 3.3 L Urine Color Urine Appearance Urine pH Ur Specific [place] Urine Protein Urine Glucose (UA) Urine Ketones Urine Blood Urine Nitrite Ur Leukocyte Esterase Urine WBC (Auto) Urine RBC (Auto) 06/19/18 06/19/18 09:07 10:10 WBC RBC Hgb Hct MCV MCH MCHC RDW Plt Count Seg Neutrophils % Lymphocytes % Monocytes % Eosinophils % Basophils % Absolute Neutrophils Absolute Lymphocytes Absolute Monocytes Absolute Eosinophils Absolute Basophils VBG pH 7.33 VBG pCO2 56.2 VBG HCO3 28.6 VBG Base Excess 1.4 Sodium Potassium Chloride Carbon Dioxide Anion Gap BUN Creatinine Est GFR ( Amer) Est GFR (Non-Af Amer) Glucose Lactic Acid Calcium Total Bilirubin AST ALT Alkaline Phosphatase Total Protein Albumin Urine Color YELLOW Urine Appearance SLIGHTLY-CLOUDY Urine pH 5.0 Ur Specific [place] 1.009 Urine Protein NEGATIVE Urine Glucose (UA) NEGATIVE Urine Ketones NEGATIVE Urine Blood NEGATIVE Urine Nitrite NEGATIVE Ur Leukocyte Esterase NEGATIVE Urine WBC (Auto) 0 Urine RBC (Auto) 0 Impressions: Chest CT 06/19/18 00:00 IMPRESSION: 1. Consolidation predominantly in the right middle and lower lobes suggesting pneumonia. 2. No pleural effusions or pneumothorax. Chest X-Ray 06/19/18 10:37 IMPRESSION: Bilateral pneumonia or asymmetric edema. Clinical correlation is needed. Assessment & Plan - Diagnosis (1) Healthcare associated bacterial pneumonia Is this a current diagnosis for this admission?: Yes Plan: The last time she was hospitalized the sputum culture grew Pseudomonas and C itrobacter both organisms sensitive to cefepime, she was empirically be treated with cefepime, I will hold vancomycin at this point especially with CKD stage III, vancomycin is a potential nephrotoxin (2) CLL (chronic lymphocytic leukemia) Is this a current diagnosis for this admission?: Yes (3) Chronic kidney disease, stage 3 Is this a current diagnosis for this admission?: Yes (4) Seizure disorder Is this a current diagnosis for this admission?: Yes Plan: The last time she has seizure presently on maintenance Keppra (5) Thrombocytopenia Is this a current diagnosis for this admission?: Yes Plan: She has chronic, 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
[2018-06-19] MEDS: METOPROLOL TARTRATE 25 MG TABLET PO SCH (21:55)
[2018-06-19] MEDS: LEVETIRACETAM 500 MG TABLET PO SCH (21:55)
[2018-06-19] MEDS: BUDESONIDE/FORMOTEROL 160-4.5 MCG 60 PUFF/6 GM MDI IH SCH (21:56)
[2018-06-19] MEDS ORDERED: LEVETIRACETAM 500 MG TABLET PO SCH (22:00)
[2018-06-19] MEDS ORDERED: METOPROLOL TARTRATE 25 MG TABLET PO SCH (22:00)
[2018-06-19] MEDS: CEFEPIME 1 GM/D5W RTU 1 GM/50 ML RTUPB IV SCH (22:20)
[2018-06-20] MEDS: IPRATROPIUM/ALBUTEROL 0.5-2.5 MG/3 ML AMPUL NEB SCH ×4 (02:31→19:17)
[2018-06-20 05:05] LABS: HEMATOCRIT 32.5 % (36.0-47.0); HEMOGLOBIN 10.9 g/dL (12.0-15.5); MEAN CORPUSCULAR HEMOGLOBIN 31.2 pg (27.0-33.4); MEAN CORPUSCULAR HGB CONC 33.7 g/dL (32.0-36.0); MEAN CORPUSCULAR VOLUME 93 fl (80-97); RED CELL DISTRIBUTION WIDTH 23.9 % (11.5-14.0); WHITE BLOOD COUNT 6.7 10^3/uL (4.0-10.5)
[2018-06-20 05:18] LABS: PLATELET COUNT 74 10^3/uL (150-450)
[2018-06-20 05:22] LABS: ALANINE AMINOTRANSFERASE 15 U/L (9-52); ALBUMIN 2.8 g/dL (3.5-5.0); ALKALINE PHOSPHATASE 111 U/L (38-126); ANION GAP 7 (5-19); ASPARTATE AMINO TRANSFERASE 17 U/L (14-36); BILIRUBIN,DIRECT 0.4 mg/dL (0.0-0.4); BILIRUBIN,TOTAL 0.5 mg/dL (0.2-1.3); BLOOD UREA NITROGEN 37 mg/dL (7-20); CALCIUM 8.7 mg/dL (8.4-10.2); CARBON DIOXIDE 28 mmol/L (22-30); CHLORIDE 110 mmol/L (98-107); GLUCOSE 95 mg/dL (75-110); POTASSIUM 3.1 mmol/L (3.6-5.0); SODIUM 144.7 mmol/L (137-145); TOTAL PROTEIN 5.4 g/dL (6.3-8.2)
[2018-06-20] MEDS ORDERED: POTASSIUM CHLORIDE 20 MEQ/15 ML UDCUP PO ONE (08:09)
[2018-06-20] MEDS: CEFEPIME 1 GM/D5W RTU 1 GM/50 ML RTUPB IV SCH ×2 (09:34→21:24)
[2018-06-20] MEDS: LEVETIRACETAM 500 MG TABLET PO SCH ×2 (09:35→21:24)
[2018-06-20] MEDS: METOPROLOL TARTRATE 25 MG TABLET PO SCH ×2 (09:35→21:24)
[2018-06-20] MEDS: BUDESONIDE/FORMOTEROL 160-4.5 MCG 60 PUFF/6 GM MDI IH SCH ×2 (09:37→21:24)
[2018-06-20] MEDS: FAMOTIDINE 20 MG TABLET PO SCH (09:37)
--- NOTE | 2018-06-20 18:06 | CONSULTATION REPORT E ---
Consultation Report NAME: JANET ABBOTT : 1945 AGE: 72Y DATE: 06/20/2018 ROOM: 316 A TO: GABRIELLE SMITH M.D. FROM: ERUM HENAO M.D. Requesting Physician REASON FOR REFERRAL: IVIg treatment. REASON FOR CONSULTATION: The patient is a 72-year-old with CLL. She had recurred with right submandibular soft tissue swelling. She has been on previous chemotherapy regimen, including Rituxan and bendamustine. She was recently started on Zydelig and Rituxan. She takes the Zydelig at home, has pills and was getting Rituxan intermittently. Unfortunately in May she had developed pneumonia and was intubated, transferred to [facility], later extubated and discharged home. She was readmitted to [place] with possible pneumonia. She is on antibiotics. She is due for IVIg and she was wondering if the needs to have it while she is in the hospital. PHYSICAL EXAMINATION: GENERAL: She is an elderly woman. She was in bed, alert, and answering all questions appropriately. CHEST: She has good air entry bilaterally. ABDOMEN: Soft. LOWER EXTREMITIES: No edema. VITAL SIGNS: Her T-max was 102.9. She has been afebrile since last night. LABORATORY DATA: 06/19/18; white count is 8.5, hemoglobin is 12.5, platelet count 86. IMPRESSION AND PLAN: The patient is a 72-year-old woman who is presently in the hospital being treated for pneumonia. I explained to her that at this time I will hold off the IVIg until the infection has subsided and she no longer has fever. She appears to be improving clinically. She is also off the Zydelig. I have asked her to stay off the medication until she sees me back in the office following her discharge from the hospital. At this time I will hold off any chemotherapy treatments or IVIg until she has recovered fully. I thank you for this consultation and allowing me to be part of her care. DICTATING PHYSICIAN: GABRIELLE SMITH M.D. [id number] [id number] ID: [id number] JOB#: [id number] ACCT: [id number] cc:GABRIELLE SMITH M.D. >
--- NOTE | 2018-06-20 21:32 | PDOC PROGRESS REPORT ---
Subjective Progress Note for:: 06/20/18 Subjective:: Patient was seen by the bedside she is improving clinically Reason For Visit: HEALTHCARE ASSOCIATED PNEUMONIA,CLL MULTIPLE Physical Exam Vital Signs: Temp Pulse Resp BP Pulse Ox 97.6 F 89 21 H 151/82 H 93 06/20/18 20:03 06/20/18 20:03 06/20/18 20:03 06/20/18 20:03 06/20/18 20:03 Intake & Output 06/19/18 06/20/18 06/21/18 06:59 06:59 06:59 Intake Total 600 50 Balance 600 50 Weight 51.1 kg General appearance: PRESENT: no acute distress Eye exam: PRESENT: PERRLA Respiratory exam: PRESENT: rhonchi Cardiovascular exam: PRESENT: +S1, +S2 GI/Abdominal exam: PRESENT: soft Neurological exam: PRESENT: alert Results Laboratory Results: 06/20/18 04:19 06/20/18 04:19 06/19/18 06/20/18 06/20/18 21:42 04:19 04:19 WBC 6.7 RBC 3.50 L Hgb 10.9 L Hct 32.5 L MCV 93 MCH 31.2 MCHC 33.7 RDW 23.9 H Plt Count 74 L Sodium 144.7 Potassium 3.1 L Chloride 110 H Carbon Dioxide 28 Anion Gap 7 BUN 37 H Creatinine 1.80 H Est GFR ( Amer) 34 L Est GFR (Non-Af Amer) 28 L Glucose 95 Calcium 8.7 Total Bilirubin 0.5 AST 17 ALT 15 Alkaline Phosphatase 111 Total Protein 5.4 L Albumin 2.8 L PTH Intact 109.9 H 06/19/18 06/19/18 09:07 09:07 Creatine Kinase < 20 L Troponin I < 0.012 Impressions: Chest CT 06/19/18 00:00 IMPRESSION: 1. Consolidation predominantly in the right middle and lower lobes suggesting pneumonia. 2. No pleural effusions or pneumothorax. Chest X-Ray 06/19/18 10:37 IMPRESSION: Bilateral pneumonia or asymmetric edema. Clinical correlation is needed. Assessment & Plan - Diagnosis (1) Healthcare associated bacterial pneumonia Is this a current diagnosis for this admission?: Yes Plan: The last time she was hospitalized the sputum culture grew Pseudomonas and Citrobacter both organisms sensitive to cefepime, she was empirically be treated with cefepime, I will hold vancomycin at this point especially with CKD stage III, vancomycin is a potential nephrotoxin (2) CLL (chronic lymphocytic leukemia) Is this a current diagnosis for this admission?: Yes (3) Chronic kidney disease, stage 3 Is this a current diagnosis for this admission?: Yes (4) Seizure disorder Is this a current diagnosis for this admission?: Yes Plan: The last time she has seizure presently on maintenance Keppra (5) Thrombocytopenia Is this a current diagnosis for this admission?: Yes Plan: She has chronic, 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
[2018-06-21] MEDS: IPRATROPIUM/ALBUTEROL 0.5-2.5 MG/3 ML AMPUL NEB SCH ×4 (02:16→20:25)
[2018-06-21 04:57] LABS: HEMATOCRIT 33.4 % (36.0-47.0); HEMOGLOBIN 11.2 g/dL (12.0-15.5); MEAN CORPUSCULAR HEMOGLOBIN 31.2 pg (27.0-33.4); MEAN CORPUSCULAR HGB CONC 33.6 g/dL (32.0-36.0); MEAN CORPUSCULAR VOLUME 93 fl (80-97); RED BLOOD COUNT 3.59 10^6/uL (3.72-5.28); RED CELL DISTRIBUTION WIDTH 25.2 % (11.5-14.0); WHITE BLOOD COUNT 7.3 10^3/uL (4.0-10.5)
[2018-06-21 05:04] LABS: PLATELET COUNT 74 10^3/uL (150-450)
[2018-06-21 05:47] LABS: ALANINE AMINOTRANSFERASE 15 U/L (9-52); ALBUMIN 2.8 g/dL (3.5-5.0); ALKALINE PHOSPHATASE 111 U/L (38-126); ANION GAP 6 (5-19); ASPARTATE AMINO TRANSFERASE 17 U/L (14-36); BILIRUBIN,DIRECT 0.3 mg/dL (0.0-0.4); BILIRUBIN,TOTAL 0.6 mg/dL (0.2-1.3); BLOOD UREA NITROGEN 37 mg/dL (7-20); CALCIUM 8.5 mg/dL (8.4-10.2); CARBON DIOXIDE 27 mmol/L (22-30); CHLORIDE 112 mmol/L (98-107); GLUCOSE 89 mg/dL (75-110); POTASSIUM 3.7 mmol/L (3.6-5.0); SODIUM 144.9 mmol/L (137-145); TOTAL PROTEIN 5.3 g/dL (6.3-8.2)
[2018-06-21] MEDS ORDERED: VANCOMYCIN HCL 0 MG in DEXTROSE 5%-WATER 250 ML IV NR (07:30)
[2018-06-21] MEDS: METOPROLOL TARTRATE 25 MG TABLET PO SCH ×2 (10:17→21:48)
[2018-06-21] MEDS: LEVETIRACETAM 500 MG TABLET PO SCH ×2 (10:17→21:48)
[2018-06-21] MEDS: FAMOTIDINE 20 MG TABLET PO SCH (10:17)
[2018-06-21] MEDS: CEFEPIME 1 GM/D5W RTU 1 GM/50 ML RTUPB IV SCH ×2 (10:17→21:49)
[2018-06-21] MEDS: BUDESONIDE/FORMOTEROL 160-4.5 MCG 60 PUFF/6 GM MDI IH SCH ×2 (10:18→21:48)
[2018-06-21] MEDS: VANCOMYCIN HCL 1,000 MG in DEXTROSE 5%-WATER 250 ML IV SCH (14:49)
--- NOTE | 2018-06-21 21:10 | PDOC PROGRESS REPORT ---
Subjective Progress Note for:: 06/21/18 Subjective:: Patient was seen by the bedside sputum culture grew Citrobacter species and MRSA. She was started on cefepime on admission Reason For Visit: HEALTHCARE ASSOCIATED PNEUMONIA,CLL MULTIPLE Physical Exam Vital Signs: Temp Pulse Resp BP Pulse Ox 98.3 F 62 15 159/73 H 92 06/21/18 19:58 06/21/18 20:25 06/21/18 20:25 06/21/18 19:58 06/21/18 20:25 Intake & Output 06/20/18 06/21/18 06/22/18 06:59 06:59 06:59 Intake Total 600 200 450 Output Total 200 Balance 600 0 450 Weight 51.1 kg 51.3 kg General appearance: PRESENT: no acute distress Eye exam: PRESENT: PERRLA Respiratory exam: PRESENT: rhonchi Cardiovascular exam: PRESENT: +S1, +S2 GI/Abdominal exam: PRESENT: soft Neurological exam: PRESENT: alert Results Laboratory Results: 06/21/18 04:14 06/21/18 04:14 06/21/18 06/21/18 04:14 04:14 WBC 7.3 RBC 3.59 L Hgb 11.2 L Hct 33.4 L MCV 93 MCH 31.2 MCHC 33.6 RDW 25.2 H Plt Count 74 L Sodium 144.9 Potassium 3.7 Chloride 112 H Carbon Dioxide 27 Anion Gap 6 BUN 37 H Creatinine 1.75 H Est GFR ( Amer) 35 L Est GFR (Non-Af Amer) 29 L Glucose 89 Calcium 8.5 Total Bilirubin 0.6 AST 17 ALT 15 Alkaline Phosphatase 111 Total Protein 5.3 L Albumin 2.8 L 06/19/18 10:10 Catheterized Urine Urine Culture - Final NO GROWTH 2 DAYS 06/19/18 08:58 Sputum Gram Stain - Final 06/19/18 08:58 Sputum Sputum Culture - Final Mrsa (Meth Resis Staph Aureus) Citrobacter Freundii Normal Josy Absent 06/19/18 06/19/18 09:07 09:07 Creatine Kinase < 20 L Troponin I < 0.012 Impressions: Chest CT 06/19/18 00:00 IMPRESSION: 1. Consolidation predominantly in the right middle and lower lobes suggesting pneumonia. 2. No pleural effusions or pneumothorax. Chest X-Ray 06/19/18 10:37 IMPRESSION: Bilateral pneumonia or asymmetric edema. Clinical correlation is needed. Assessment & Plan - Diagnosis (1) Healthcare associated bacterial pneumonia Is this a current diagnosis for this admission?: Yes Plan: Sputum culture grew Citrobacter and MRSA (2) CLL (chronic lymphocytic leukemia) Is this a current diagnosis for this admission?: Yes (3) Chronic kidney disease, stage 3 Is this a current diagnosis for this admission?: Yes (4) Seizure disorder Is this a current diagnosis for this admission?: Yes Plan: Continue Keppra (5) Thrombocytopenia Is this a current diagnosis for this admission?: Yes (6) Chronic atrial fibrillation Is this a current diagnosis for this admission?: Yes (7) Secondary hyperparathyroidism (of renal origin) Is this a current diagnosis for this admission?: Yes Plan: Start calcitriol and vitamin D (8) MRSA (methicillin resistant staphylococcus aureus) pneumonia Qualifiers: Laterality: right Lung location: unspecified part of lung Qualified Code(s): J15.212 - Pneumonia due to Methicillin resistant Staphylococcus aureus Is this a current diagnosis for this admission?: Yes Plan: Start vancomycin pharmacy to follow levels (9) Citrobacter infection Is this a current diagnosis for this admission?: Yes Plan: Continue cefepime
[2018-06-21] MEDS: CALCITRIOL 0.25 MCG CAPSULE PO SCH (21:48)
[2018-06-21] MEDS: CHOLECALCIFEROL (D3) 400 UNIT TABLET PO SCH (21:48)
[2018-06-21] MEDS: GUAIFENESIN SYRP 200 MG/10 ML UDC PO PRN (21:49)
[2018-06-22] MEDS: IPRATROPIUM/ALBUTEROL 0.5-2.5 MG/3 ML AMPUL NEB SCH ×4 (01:34→19:46)
[2018-06-22 05:19] LABS: HEMATOCRIT 34.9 % (36.0-47.0); HEMOGLOBIN 11.8 g/dL (12.0-15.5); MEAN CORPUSCULAR HEMOGLOBIN 31.2 pg (27.0-33.4); MEAN CORPUSCULAR HGB CONC 33.7 g/dL (32.0-36.0); MEAN CORPUSCULAR VOLUME 92 fl (80-97); RED BLOOD COUNT 3.78 10^6/uL (3.72-5.28); RED CELL DISTRIBUTION WIDTH 24.2 % (11.5-14.0)
[2018-06-22 05:48] LABS: ALANINE AMINOTRANSFERASE 11 U/L (9-52); ALBUMIN 2.9 g/dL (3.5-5.0); ALKALINE PHOSPHATASE 113 U/L (38-126); ANION GAP 9 (5-19); ASPARTATE AMINO TRANSFERASE 15 U/L (14-36); BILIRUBIN,DIRECT 0.4 mg/dL (0.0-0.4); BILIRUBIN,TOTAL 0.6 mg/dL (0.2-1.3); BLOOD UREA NITROGEN 35 mg/dL (7-20); CARBON DIOXIDE 26 mmol/L (22-30); CHLORIDE 111 mmol/L (98-107); GLUCOSE 90 mg/dL (75-110); POTASSIUM 3.3 mmol/L (3.6-5.0); SODIUM 146.1 mmol/L (137-145); TOTAL PROTEIN 5.6 g/dL (6.3-8.2)
[2018-06-22 06:07] LABS: PLATELET COUNT 73 10^3/uL (150-450)
[2018-06-22] MEDS: BUDESONIDE/FORMOTEROL 160-4.5 MCG 60 PUFF/6 GM MDI IH SCH ×2 (09:35→21:52)
[2018-06-22] MEDS: METOPROLOL TARTRATE 25 MG TABLET PO SCH ×2 (09:36→21:00)
[2018-06-22] MEDS: FAMOTIDINE 20 MG TABLET PO SCH (09:37)
[2018-06-22] MEDS: CHOLECALCIFEROL (D3) 400 UNIT TABLET PO SCH (09:37)
[2018-06-22] MEDS: LEVETIRACETAM 500 MG TABLET PO SCH ×2 (09:37→20:59)
[2018-06-22] MEDS: CALCITRIOL 0.25 MCG CAPSULE PO SCH (09:37)
[2018-06-22] MEDS: CEFEPIME 1 GM/D5W RTU 1 GM/50 ML RTUPB IV SCH ×2 (12:12→20:59)
[2018-06-22] MEDS: GUAIFENESIN SYRP 200 MG/10 ML UDC PO PRN ×2 (13:53→18:24)
[2018-06-22] MEDS: AMLODIPINE BESYLATE 2.5 MG TABLET PO SCH (13:54)
--- NOTE | 2018-06-22 15:58 | PDOC PROGRESS REPORT ---
Subjective Progress Note for:: 06/22/18 Subjective:: Patient reported improvement in her breathing efforts. No chest pain. No nausea, vomiting, or abdominal pain. tolerating feeding. Reason For Visit: HEALTHCARE ASSOCIATED PNEUMONIA,CLL MULTIPLE Physical Exam Vital Signs: Temp Pulse Resp BP Pulse Ox 97.7 F 84 16 153/83 H 95 06/22/18 15:03 06/22/18 15:03 06/22/18 15:03 06/22/18 15:03 06/22/18 15:03 Intake & Output 06/21/18 06/22/18 06/23/18 06:59 06:59 06:59 Intake Total 200 500 404 Output Total 200 Balance 0 500 404 Weight 51.3 kg 50.3 kg General appearance: PRESENT: no acute distress, well-developed, well-nourished Head exam: PRESENT: atraumatic, normocephalic Eye exam: PRESENT: conjunctiva pink, EOMI, PERRLA. ABSENT: scleral icterus Ear exam: PRESENT: normal external ear exam Mouth exam: PRESENT: moist Cardiovascular exam: PRESENT: RRR, +S1, +S2, systolic murmur. ABSENT: diastolic murmur Vascular exam: PRESENT: normal capillary refill. ABSENT: pallor GI/Abdominal exam: PRESENT: normal bowel sounds, soft. ABSENT: distended, guarding, mass, organolmegaly, rebound, tenderness Extremities exam: ABSENT: pedal edema Neurological exam: PRESENT: alert, awake, oriented to person, oriented to place, oriented to time, oriented to situation, CN II-XII grossly intact. ABSENT: motor sensory deficit Psychiatric exam: PRESENT: appropriate affect, normal mood. ABSENT: homicidal ideation, suicidal ideation Skin exam: PRESENT: dry, warm Results Laboratory Results: 06/22/18 04:20 06/22/18 04:20 06/22/18 06/22/18 04:20 04:20 WBC 9.0 RBC 3.78 Hgb 11.8 L Hct 34.9 L MCV 92 MCH 31.2 MCHC 33.7 RDW 24.2 H Plt Count 73 L Sodium 146.1 H Potassium 3.3 L Chloride 111 H Carbon Dioxide 26 Anion Gap 9 BUN 35 H Creatinine 1.72 H Est GFR ( Amer) 35 L Est GFR (Non-Af Amer) 29 L Glucose 90 Calcium 9.0 Total Bilirubin 0.6 AST 15 ALT 11 Alkaline Phosphatase 113 Total Protein 5.6 L Albumin 2.9 L 06/19/18 06/19/18 09:07 09:07 Creatine Kinase < 20 L Troponin I < 0.012 Impressions: Chest CT 06/19/18 00:00 IMPRESSION: 1. Consolidation predominantly in the right middle and lower lobes suggesting pneumonia. 2. No pleural effusions or pneumothorax. Chest X-Ray 06/19/18 10:37 IMPRESSION: Bilateral pneumonia or asymmetric edema. Clinical correlation is needed. Assessment & Plan - Diagnosis (1) Healthcare associated bacterial pneumonia Is this a current diagnosis for this admission?: Yes Plan: Continue on IV Vancomycin and Cefepime coverage. Sputum culture was reported as growing MRSA and Citrobacter Freundii. Urine and blood culture were reported as no growth. (2) Citrobacter infection Is this a current diagnosis for this admission?: Yes Plan: Continue IV Cefepime based on sputum culture organism sensitivity report. - Time Time Spent with patient: 25-34 minutes Medications reviewed and adjusted accordingly: Yes Anticipated discharge: Home with Homehealth Within: Other - Inpatient Certification Based on my medical assessment, after consideration of the patient's comorbidities, presenting symptoms, or acuity I expect that the services needed warrant INPATIENT care.: Yes I certify that my determination is in accordance with my understanding of Medicare's requirements for reasonable and necessary INPATIENT services [42 CFR 412.3e].: Yes Medical Necessity: Need Close Monitoring Due to Risk of Patient Decompensation, Need For IV Fluids, Need For Continuous Telemetry Monitoring, Need for Nebulizer Therapy and Monitoring of Response, Need for IV Antibiotics, Risk of Complication if Not Cared For in Hospital 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
[2018-06-22] MEDS: POTASSIUM CHLORIDE 10 MEQ CAPSULE.ER PO SCH ×2 (18:24→21:00)
[2018-06-23] MEDS: IPRATROPIUM/ALBUTEROL 0.5-2.5 MG/3 ML AMPUL NEB SCH ×4 (02:27→19:33)
[2018-06-23] MEDS: GUAIFENESIN SYRP 200 MG/10 ML UDC PO PRN (08:40)
[2018-06-23] MEDS: LEVETIRACETAM 500 MG TABLET PO SCH ×2 (09:11→21:44)
[2018-06-23] MEDS: CEFEPIME 1 GM/D5W RTU 1 GM/50 ML RTUPB IV SCH ×2 (09:11→21:44)
[2018-06-23] MEDS: AMLODIPINE BESYLATE 2.5 MG TABLET PO SCH (09:11)
[2018-06-23] MEDS: FAMOTIDINE 20 MG TABLET PO SCH (09:11)
[2018-06-23] MEDS: BUDESONIDE/FORMOTEROL 160-4.5 MCG 60 PUFF/6 GM MDI IH SCH ×2 (09:12→21:45)
[2018-06-23] MEDS: CHOLECALCIFEROL (D3) 400 UNIT TABLET PO SCH (09:12)
[2018-06-23] MEDS: CALCITRIOL 0.25 MCG CAPSULE PO SCH (09:12)
[2018-06-23] MEDS: METOPROLOL TARTRATE 25 MG TABLET PO SCH ×2 (09:13→21:44)
[2018-06-23] MEDS: VANCOMYCIN HCL 1,000 MG in DEXTROSE 5%-WATER 250 ML IV SCH (11:04)
--- NOTE | 2018-06-23 13:17 | PDOC PROGRESS REPORT ---
Subjective Progress Note for:: 06/23/18 Subjective:: Patient denied any chest pain or difficulty with breathing. No nausea, vomiting, or abdominal pain. There is new onset right forearm IV access site infiltration. Reason For Visit: HEALTHCARE ASSOCIATED PNEUMONIA,CLL MULTIPLE Physical Exam Vital Signs: Temp Pulse Resp BP Pulse Ox 97.7 F 85 14 167/78 H 97 06/23/18 11:41 06/23/18 11:41 06/23/18 11:41 06/23/18 11:41 06/23/18 11:41 Intake & Output 06/22/18 06/23/18 06/24/18 06:59 06:59 06:59 Intake Total 500 804 404 Output Total 250 Balance 500 554 404 Weight 50.3 kg 48.7 kg Physical Exam: General appearance: PRESENT: no acute distress, well-developed, well-nourished Head exam: PRESENT: atraumatic, normocephalic Eye exam: PRESENT: conjunctiva pink, EOMI, PERRLA. ABSENT: pallor, scleral icterus Ear exam: PRESENT: normal external ear exam Mouth exam: PRESENT: moist Cardiovascular exam: PRESENT: RRR, +S1, +S2, systolic murmur. ABSENT: diastolic murmur GI/Abdominal exam: PRESENT: normal bowel sounds, soft. ABSENT: distended, guarding, mass, organomegaly, rebound, tenderness Extremities exam: ABSENT: pedal edema Neurological exam: PRESENT: alert, awake, oriented to person, oriented to place, oriented to time, oriented to situation, CN II-XII grossly intact. ABSENT: motor sensory deficit Psychiatric exam: PRESENT: appropriate affect, normal mood. ABSENT: homicidal ideation, suicidal ideation Skin exam: PRESENT: dry, warm Results Laboratory Results: 06/22/18 04:20 06/22/18 04:20 06/22/18 04:20 Magnesium 1.6 06/19/18 06/19/18 09:07 09:07 Creatine Kinase < 20 L Troponin I < 0.012 Impressions: Chest CT 06/19/18 00:00 IMPRESSION: 1. Consolidation predominantly in the right middle and lower lobes suggesting pneumonia. 2. No pleural effusions or pneumothorax. Chest X-Ray 06/19/18 10:37 IMPRESSION: Bilateral pneumonia or asymmetric edema. Clinical correlation is needed. Assessment & Plan - Diagnosis (1) Healthcare associated bacterial pneumonia Is this a current diagnosis for this admission?: Yes (2) Citrobacter infection Is this a current diagnosis for this admission?: Yes - Time Time Spent with patient: 25-34 minutes Medications reviewed and adjusted accordingly: Yes Anticipated discharge: Home with Homehealth Within: Other - Inpatient Certification Based on my medical assessment, after consideration of the patient's comorbidities, presenting symptoms, or acuity I expect that the services needed warrant INPATIENT care.: Yes I certify that my determination is in accordance with my understanding of Medicare's requirements for reasonable and necessary INPATIENT services [42 CFR 412.3e].: Yes Medical Necessity: Need Close Monitoring Due to Risk of Patient Decompensation, Need For IV Fluids, Need For Continuous Telemetry Monitoring, Need for IV Antibiotics, Risk of Complication if Not Cared For in Hospital 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 Obtain CBC with diff, BMP and Mag level. Maintain on all other current medication management. We will access her port-a-cath for use during this hospitalization.
[2018-06-23 14:35] LABS: ANION GAP 7 (5-19); BLOOD UREA NITROGEN 34 mg/dL (7-20); CALCIUM 9.8 mg/dL (8.4-10.2); CARBON DIOXIDE 26 mmol/L (22-30); CHLORIDE 108 mmol/L (98-107); GLUCOSE 82 mg/dL (75-110); POTASSIUM 4.5 mmol/L (3.6-5.0); SODIUM 140.7 mmol/L (137-145)
[2018-06-23 14:42] LABS: HEMATOCRIT 37.5 % (36.0-47.0); HEMOGLOBIN 12.6 g/dL (12.0-15.5); MEAN CORPUSCULAR HEMOGLOBIN 31.1 pg (27.0-33.4); MEAN CORPUSCULAR HGB CONC 33.5 g/dL (32.0-36.0); MEAN CORPUSCULAR VOLUME 93 fl (80-97); RED BLOOD COUNT 4.03 10^6/uL (3.72-5.28); RED CELL DISTRIBUTION WIDTH 25.5 % (11.5-14.0); WHITE BLOOD COUNT 9.4 10^3/uL (4.0-10.5)
[2018-06-23 15:08] LABS: PLATELET COUNT 74 10^3/uL (150-450)
[2018-06-23 15:11] LABS: ABSOLUTE LYMPHOCYTES# (MANUAL) 6.4 10^3/uL (0.5-4.7); ABSOLUTE MONOCYTES # (MANUAL) 0.3 10^3/uL (0.1-1.4); ABSOLUTE NEUTROPHILS# (MANUAL) 2.4 10^3/uL (1.7-8.2); BASOPHILS % (MANUAL) 1 % (0-2); EOSINOPHILS % (MANUAL) 2 % (0-6); LYMPHOCYTES % (MANUAL) 68 % (13-45); MONOCYTES % (MANUAL) 3 % (3-13); NUCLEATED RED BLOOD CELLS 1 /100 WBC (0); SEGMENTED NEUTROPHILS % (MAN) 26 % (42-78); TOTAL CELLS COUNTED 100
[2018-06-23 15:16] LABS: ANISOCYTOSIS 3+; OVALOCYTES SLIGHT; PLATELET COMMENT DECREASED; POIKILOCYTOSIS 1+; TARGET CELLS 1+
[2018-06-24] MEDS: IPRATROPIUM/ALBUTEROL 0.5-2.5 MG/3 ML AMPUL NEB SCH ×4 (02:24→20:08)
[2018-06-24] MEDS: METOPROLOL TARTRATE 25 MG TABLET PO SCH ×2 (09:44→22:35)
[2018-06-24] MEDS: LEVETIRACETAM 500 MG TABLET PO SCH ×2 (09:45→22:39)
[2018-06-24] MEDS: FAMOTIDINE 20 MG TABLET PO SCH (09:50)
[2018-06-24] MEDS: AMLODIPINE BESYLATE 2.5 MG TABLET PO SCH (09:50)
[2018-06-24] MEDS: CEFEPIME 1 GM/D5W RTU 1 GM/50 ML RTUPB IV SCH ×2 (09:51→22:39)
[2018-06-24] MEDS: CHOLECALCIFEROL (D3) 400 UNIT TABLET PO SCH (09:51)
[2018-06-24] MEDS: CALCITRIOL 0.25 MCG CAPSULE PO SCH (10:06)
[2018-06-24] MEDS: BUDESONIDE/FORMOTEROL 160-4.5 MCG 60 PUFF/6 GM MDI IH SCH ×2 (10:07→22:35)
--- NOTE | 2018-06-24 20:16 | PDOC PROGRESS REPORT ---
Subjective Progress Note for:: 06/24/18 Subjective:: Patient seen by the bedside she has MRSA and Citrobacter pneumonia, on IV vancomycin and cefepime, she was seen by the bedside she has no new complaints Reason For Visit: HEALTHCARE ASSOCIATED PNEUMONIA,CLL MULTIPLE Physical Exam Vital Signs: Temp Pulse Resp BP Pulse Ox 97.6 F 93 16 151/97 H 94 06/24/18 16:00 06/24/18 19:00 06/24/18 16:00 06/24/18 16:00 06/24/18 16:00 Intake & Output 06/23/18 06/24/18 06/25/18 06:59 06:59 06:59 Intake Total 804 1054 1350 Output Total 250 200 300 Balance 166 083 3964 Weight 48.7 kg 49.6 kg General appearance: PRESENT: no acute distress Eye exam: PRESENT: PERRLA Respiratory exam: PRESENT: clear to auscultation sendy Cardiovascular exam: PRESENT: +S1, +S2 GI/Abdominal exam: PRESENT: soft Neurological exam: PRESENT: alert Results Laboratory Results: 06/23/18 14:00 06/23/18 14:00 06/19/18 11:06 Blood Blood Culture - Final NO GROWTH IN 5 DAYS 06/19/18 09:07 Blood Blood Culture - Final NO GROWTH IN 5 DAYS 06/19/18 06/19/18 09:07 09:07 Creatine Kinase < 20 L Troponin I < 0.012 Impressions: Chest CT 06/19/18 00:00 IMPRESSION: 1. Consolidation predominantly in the right middle and lower lobes suggesting pneumonia. 2. No pleural effusions or pneumothorax. Chest X-Ray 06/19/18 10:37 IMPRESSION: Bilateral pneumonia or asymmetric edema. Clinical correlation is needed. Assessment & Plan - Diagnosis (1) Healthcare associated bacterial pneumonia Is this a current diagnosis for this admission?: Yes (2) CLL (chronic lymphocytic leukemia) Is this a current diagnosis for this admission?: Yes (3) Chronic kidney disease, stage 3 Is this a current diagnosis for this admission?: Yes (4) Seizure disorder Is this a current diagnosis for this admission?: Yes (5) Thrombocytopenia Is this a current diagnosis for this admission?: Yes (6) Chronic atrial fibrillation Is this a current diagnosis for this admission?: Yes (7) Secondary hyperparathyroidism (of renal origin) Is this a current diagnosis for this admission?: Yes (8) MRSA (methicillin resistant staphylococcus aureus) pneumonia Qualifiers: Laterality: right Lung location: unspecified part of lung Qualified Code(s): J15.212 - Pneumonia due to Methicillin resistant Staphylococcus aureus Is this a current diagnosis for this admission?: Yes Plan: Continue IV vancomycin (9) Citrobacter infection Is this a current diagnosis for this admission?: Yes Plan: Continue IV cefepime
[2018-06-24] MEDS: GUAIFENESIN SYRP 200 MG/10 ML UDC PO PRN (22:40)
[2018-06-25] MEDS: IPRATROPIUM/ALBUTEROL 0.5-2.5 MG/3 ML AMPUL NEB SCH ×4 (01:40→20:38)
[2018-06-25 09:30] LABS: HEMATOCRIT 35.4 % (36.0-47.0); HEMOGLOBIN 11.8 g/dL (12.0-15.5); MEAN CORPUSCULAR HGB CONC 33.2 g/dL (32.0-36.0); MEAN CORPUSCULAR VOLUME 93 fl (80-97); RED CELL DISTRIBUTION WIDTH 24.3 % (11.5-14.0); WHITE BLOOD COUNT 10.3 10^3/uL (4.0-10.5)
[2018-06-25 09:41] LABS: ANION GAP 7 (5-19); BLOOD UREA NITROGEN 38 mg/dL (7-20); CALCIUM 9.6 mg/dL (8.4-10.2); CARBON DIOXIDE 27 mmol/L (22-30); CHLORIDE 109 mmol/L (98-107); GLUCOSE 87 mg/dL (75-110); POTASSIUM 4.4 mmol/L (3.6-5.0); SODIUM 142.9 mmol/L (137-145)
[2018-06-25 10:24] LABS: ABSOLUTE LYMPHOCYTES# (MANUAL) 6.5 10^3/uL (0.5-4.7); ABSOLUTE MONOCYTES # (MANUAL) 0.4 10^3/uL (0.1-1.4); BAND NEUTROPHILS % (MANUAL) 4 % (3-5); BASOPHILS % (MANUAL) 1 % (0-2); EOSINOPHILS % (MANUAL) 3 % (0-6); LYMPHOCYTES % (MANUAL) 60 % (13-45); MONOCYTES % (MANUAL) 4 % (3-13); NUCLEATED RED BLOOD CELLS 2 /100 WBC (0); SEGMENTED NEUTROPHILS % (MAN) 25 % (42-78); TOTAL CELLS COUNTED 100
[2018-06-25 10:25] LABS: ANISOCYTOSIS 3+; TARGET CELLS SLIGHT
[2018-06-25 10:26] LABS: TOXIC GRANULATION 1+
[2018-06-25 10:36] LABS: PLATELET COUNT 81 10^3/uL (150-450)
[2018-06-25 10:39] LABS: PLATELET COMMENT DECREASED
[2018-06-25] MEDS: LEVETIRACETAM 500 MG TABLET PO SCH ×2 (12:15→21:24)
[2018-06-25] MEDS: METOPROLOL TARTRATE 25 MG TABLET PO SCH ×2 (12:15→21:24)
[2018-06-25] MEDS: FAMOTIDINE 20 MG TABLET PO SCH (12:15)
[2018-06-25] MEDS: CHOLECALCIFEROL (D3) 400 UNIT TABLET PO SCH (12:15)
[2018-06-25] MEDS: CALCITRIOL 0.25 MCG CAPSULE PO SCH (12:15)
[2018-06-25] MEDS: AMLODIPINE BESYLATE 2.5 MG TABLET PO SCH (12:18)
[2018-06-25] MEDS: VANCOMYCIN HCL 1,000 MG in DEXTROSE 5%-WATER 250 ML IV SCH (12:18)
[2018-06-25] MEDS: CEFEPIME 1 GM/D5W RTU 1 GM/50 ML RTUPB IV SCH ×2 (12:18→21:23)
[2018-06-25] MEDS: BUDESONIDE/FORMOTEROL 160-4.5 MCG 60 PUFF/6 GM MDI IH SCH ×2 (12:18→21:24)
[2018-06-25 13:11] LABS: VANCOMYCIN,TROUGH 15.6 ug/mL (5.0-20.0)
[2018-06-25] MEDS: DRONABINOL 2.5 MG CAPSULE PO SCH (20:06)
--- NOTE | 2018-06-25 21:24 | PDOC PROGRESS REPORT ---
Subjective Progress Note for:: 06/25/18 Subjective:: Patient is alert, she complains of pain in the right thigh Reason For Visit: HEALTHCARE ASSOCIATED PNEUMONIA,CLL MULTIPLE Physical Exam Vital Signs: Temp Pulse Resp BP Pulse Ox 98.5 F 96 16 136/82 H 97 06/25/18 16:21 06/25/18 16:21 06/25/18 16:21 06/25/18 16:21 06/25/18 16:21 Intake & Output 06/24/18 06/25/18 06/26/18 06:59 06:59 06:59 Intake Total 1054 1640 987 Output Total 200 450 Balance 854 1190 987 Weight 49.6 kg 49.5 kg General appearance: PRESENT: no acute distress Eye exam: PRESENT: PERRLA Respiratory exam: PRESENT: clear to auscultation sendy Cardiovascular exam: PRESENT: +S1, +S2 GI/Abdominal exam: PRESENT: soft Neurological exam: PRESENT: alert Results Laboratory Results: 06/25/18 09:00 06/25/18 09:00 06/25/18 06/25/18 09:00 09:00 WBC 10.3 RBC 3.80 Hgb 11.8 L Hct 35.4 L MCV 93 MCH 31.0 MCHC 33.2 RDW 24.3 H Plt Count 81 L Seg Neutrophils % Not Reportable Lymphocytes % Not Reportable Monocytes % Not Reportable Eosinophils % Not Reportable Basophils % Not Reportable Absolute Neutrophils Not Reportable Absolute Lymphocytes Not Reportable Absolute Monocytes Not Reportable Absolute Eosinophils Not Reportable Absolute Basophils Not Reportable Sodium 142.9 Potassium 4.4 Chloride 109 H Carbon Dioxide 27 Anion Gap 7 BUN 38 H Creatinine 1.93 H Est GFR ( Amer) 31 L Est GFR (Non-Af Amer) 26 L Glucose 87 Calcium 9.6 06/19/18 06/19/18 09:07 09:07 Creatine Kinase < 20 L Troponin I < 0.012 Impressions: Chest CT 06/19/18 00:00 IMPRESSION: 1. Consolidation predominantly in the right middle and lower lobes suggesting pneumonia. 2. No pleural effusions or pneumothorax. Chest X-Ray 06/19/18 10:37 IMPRESSION: Bilateral pneumonia or asymmetric edema. Clinical correlation is needed. Assessment & Plan - Diagnosis (1) Healthcare associated bacterial pneumonia Is this a current diagnosis for this admission?: Yes (2) CLL (chronic lymphocytic leukemia) Is this a current diagnosis for this admission?: Yes (3) Chronic kidney disease, stage 3 Is this a current diagnosis for this admission?: Yes (4) Seizure disorder Is this a current diagnosis for this admission?: Yes (5) Thrombocytopenia Is this a current diagnosis for this admission?: Yes (6) Chronic atrial fibrillation Is this a current diagnosis for this admission?: Yes (7) Secondary hyperparathyroidism (of renal origin) Is this a current diagnosis for this admission?: Yes (8) MRSA (methicillin resistant staphylococcus aureus) pneumonia Qualifiers: Laterality: right Lung location: unspecified part of lung Qualified Code(s): J15.212 - Pneumonia due to Methicillin resistant Staphylococcus aureus Is this a current diagnosis for this admission?: Yes Plan: Continue IV vancomycin (9) Citrobacter infection Is this a current diagnosis for this admission?: Yes Plan: Continue IV cefepime - Plan Summary Plan Summary: Continue IV,vancomycin and cefepime
[2018-06-26] MEDS: IPRATROPIUM/ALBUTEROL 0.5-2.5 MG/3 ML AMPUL NEB SCH ×4 (01:56→19:49)
[2018-06-26] MEDS: CEFEPIME 1 GM/D5W RTU 1 GM/50 ML RTUPB IV SCH (10:45)
[2018-06-26] MEDS: BUDESONIDE/FORMOTEROL 160-4.5 MCG 60 PUFF/6 GM MDI IH SCH ×2 (10:46→21:01)
[2018-06-26] MEDS: LEVETIRACETAM 500 MG TABLET PO SCH ×2 (10:46→21:00)
[2018-06-26] MEDS: DRONABINOL 2.5 MG CAPSULE PO SCH ×2 (10:46→19:17)
[2018-06-26] MEDS: FAMOTIDINE 20 MG TABLET PO SCH (10:46)
[2018-06-26] MEDS: CALCITRIOL 0.25 MCG CAPSULE PO SCH (10:47)
[2018-06-26] MEDS: AMLODIPINE BESYLATE 2.5 MG TABLET PO SCH (10:47)
[2018-06-26] MEDS: CHOLECALCIFEROL (D3) 400 UNIT TABLET PO SCH (10:47)
[2018-06-26] MEDS: METOPROLOL TARTRATE 25 MG TABLET PO SCH ×2 (10:47→21:00)
--- NOTE | 2018-06-26 12:08 | RADIOLOGY REPORT (SQ) ---
EXAM DESCRIPTION: VENOUS BILATERAL LOWER COMPLETED DATE/TIME: 06/26/2018 11:32 am REASON FOR STUDY: right leg swelling R/O DVT COMPARISON: None. TECHNIQUE: Dynamic and static marley scale and color images acquired of both lower extremity venous sy stems. Selected spectral images acquired with additional compression and augmentation maneuvers. Imag es stored on PACS. LIMITATIONS: None. FINDINGS: RIGHT LEG COMMON FEMORAL AND FEMORAL: Normal phasicity, compression and augmentation. No visualized echogenic m aterial on marley scale. No defects on color images. POPLITEAL: Normal compression and augmentation. No visualized echogenic material on marley scale. No de fects on color images. CALF VESSELS: Normal compression and augmentation. No visualized echogenic material on marley scale. No defects on color image. GSV AND SSV: Normal compression. No visualized echogenic material on marley scale. No defects on color images. ANY DEEP VENOUS INSUFFICIENCY: Not evaluated. ANY EVIDENCE OF POPLITEAL CYST: No. OTHER: No other significant finding. LEFT LEG COMMON FEMORAL AND FEMORAL: Normal phasicity, compression and augmentation. No visualized echogenic m aterial on marley scale. No defects on color images. POPLITEAL: Normal compression and augmentation. No visualized echogenic material on marley scale. No de fects on color images. CALF VESSELS: Normal compression and augmentation. No visualized echogenic material on marley scale. No defects on color images. GSV AND SSV: Normal compression. No visualized echogenic material on marley scale. No defects on color images. ANY DEEP VENOUS INSUFFICIENCY: Not evaluated. ANY EVIDENCE POPLITEAL CYST: No. OTHER: No other significant finding. IMPRESSION: NO EVIDENCE DVT OR SVT IN EITHER LEG. TECHNICAL DOCUMENTATION: JOB ID: [id number] [employer]- All Rights Reserved Reading location - IP/workstation name: [email or web address]
--- NOTE | 2018-06-26 17:38 | PDOC PROGRESS REPORT ---
Subjective Progress Note for:: 06/26/18 Subjective:: Patient was seen by the bedside she continues to improve on treatment Reason For Visit: HEALTHCARE ASSOCIATED PNEUMONIA,CLL MULTIPLE Physical Exam Vital Signs: Temp Pulse Resp BP Pulse Ox 97.9 F 91 17 141/97 H 95 06/26/18 12:03 06/26/18 13:48 06/26/18 13:48 06/26/18 12:03 06/26/18 13:48 Intake & Output 06/25/18 06/26/18 06/27/18 06:59 06:59 06:59 Intake Total 1640 1037 Output Total 450 Balance 1190 1037 Weight 49.5 kg 49.7 kg General appearance: PRESENT: no acute distress Eye exam: PRESENT: PERRLA Respiratory exam: PRESENT: clear to auscultation sendy Cardiovascular exam: PRESENT: +S1, +S2 Neurological exam: PRESENT: alert Results Laboratory Results: 06/25/18 09:00 06/25/18 09:00 06/19/18 06/19/18 09:07 09:07 Creatine Kinase < 20 L Troponin I < 0.012 Impressions: Chest CT 06/19/18 00:00 IMPRESSION: 1. Consolidation predominantly in the right middle and lower lobes suggesting pneumonia. 2. No pleural effusions or pneumothorax. Chest X-Ray 06/19/18 10:37 IMPRESSION: Bilateral pneumonia or asymmetric edema. Clinical correlation is needed. Venous Doppler Study 06/26/18 00:00 IMPRESSION: NO EVIDENCE DVT OR SVT IN EITHER LEG. Assessment & Plan - Diagnosis (1) MRSA (methicillin resistant staphylococcus aureus) pneumonia Qualifiers: Laterality: right Lung location: unspecified part of lung Qualified Code(s): J15.212 - Pneumonia due to Methicillin resistant Staphylococcus aureus Is this a current diagnosis for this admission?: Yes Plan: Continue IV vancomycin (2) Healthcare associated bacterial pneumonia Is this a current diagnosis for this admission?: Yes (3) CLL (chronic lymphocytic leukemia) Is this a current diagnosis for this admission?: Yes (4) Chronic kidney disease, stage 3 Is this a current diagnosis for this admission?: Yes (5) Seizure disorder Is this a current diagnosis for this admission?: Yes (6) Thrombocytopenia Is this a current diagnosis for this admission?: Yes (7) Chronic atrial fibrillation Is this a current diagnosis for this admission?: Yes (8) Secondary hyperparathyroidism (of renal origin) Is this a current diagnosis for this admission?: Yes (9) Citrobacter infection Is this a current diagnosis for this admission?: Yes
[2018-06-26 18:13] LABS: ABSOLUTE BASOPHILS # (AUTO) 0.1 10^3/uL (0.0-0.2); ABSOLUTE EOSINOPHILS # (AUTO) 0.4 10^3/uL (0.0-0.6); ABSOLUTE MONOCYTES (AUTO) 0.2 10^3/uL (0.1-1.4); ABSOLUTE NEUT (AUTO) 3.2 10^3/uL (1.7-8.2); BASOPHILS % (AUTO) 1.1 % (0-2); EOSINOPHILS % (AUTO) 4.2 % (0-6); HEMATOCRIT 38.7 % (36.0-47.0); LYMPHOCYTES % (AUTO) 55.8 % (13-45); MEAN CORPUSCULAR HEMOGLOBIN 31.4 pg (27.0-33.4); MEAN CORPUSCULAR HGB CONC 33.6 g/dL (32.0-36.0); MEAN CORPUSCULAR VOLUME 94 fl (80-97); MONOCYTES % (AUTO) 2.7 % (3-13); RED BLOOD COUNT 4.13 10^6/uL (3.72-5.28); RED CELL DISTRIBUTION WIDTH 25.4 % (11.5-14.0); SEGMENTED NEUTROPHILS % (AUTO) 36.2 % (42-78); TOTAL CELLS COUNTED % (AUTO) 100 %; WHITE BLOOD COUNT 8.9 10^3/uL (4.0-10.5)
[2018-06-26 18:14] LABS: PLATELET COUNT 78 10^3/uL (150-450)
[2018-06-26 18:28] LABS: ANISOCYTOSIS 3+; PLATELET COMMENT DECREASED; POIKILOCYTOSIS 2+; TARGET CELLS SLIGHT; TOXIC GRANULATION SLIGHT
[2018-06-26 18:34] LABS: ALANINE AMINOTRANSFERASE 7 U/L (9-52); ALBUMIN 3.9 g/dL (3.5-5.0); ALKALINE PHOSPHATASE 117 U/L (38-126); ANION GAP 9 (5-19); ASPARTATE AMINO TRANSFERASE 21 U/L (14-36); BILIRUBIN,DIRECT 0.4 mg/dL (0.0-0.4); BILIRUBIN,TOTAL 0.6 mg/dL (0.2-1.3); BLOOD UREA NITROGEN 45 mg/dL (7-20); CALCIUM 10.2 mg/dL (8.4-10.2); CARBON DIOXIDE 26 mmol/L (22-30); CHLORIDE 105 mmol/L (98-107); GLUCOSE 98 mg/dL (75-110); POTASSIUM 4.7 mmol/L (3.6-5.0); SODIUM 140.2 mmol/L (137-145); TOTAL PROTEIN 6.6 g/dL (6.3-8.2)
[2018-06-27] MEDS: IPRATROPIUM/ALBUTEROL 0.5-2.5 MG/3 ML AMPUL NEB SCH ×4 (02:03→19:56)
[2018-06-27] MEDS: DRONABINOL 2.5 MG CAPSULE PO SCH ×2 (10:45→19:19)
[2018-06-27] MEDS: CHOLECALCIFEROL (D3) 400 UNIT TABLET PO SCH (10:45)
[2018-06-27] MEDS: FAMOTIDINE 20 MG TABLET PO SCH (10:46)
[2018-06-27] MEDS: LEVETIRACETAM 500 MG TABLET PO SCH ×2 (10:46→22:20)
[2018-06-27] MEDS: AMLODIPINE BESYLATE 2.5 MG TABLET PO SCH (10:46)
[2018-06-27] MEDS: METOPROLOL TARTRATE 25 MG TABLET PO SCH ×2 (10:46→22:20)
[2018-06-27] MEDS: CALCITRIOL 0.25 MCG CAPSULE PO SCH (10:46)
[2018-06-27] MEDS: BUDESONIDE/FORMOTEROL 160-4.5 MCG 60 PUFF/6 GM MDI IH SCH ×2 (10:48→22:19)
[2018-06-27] MEDS: VANCOMYCIN HCL 1,000 MG in DEXTROSE 5%-WATER 250 ML IV SCH (15:10)
--- NOTE | 2018-06-27 17:05 | Progress Note ---
Provider Note Provider Note: ID Consult Note Asked by Pharmacy to review patient's chart. Pt not seen or examined. Reviewed VS, imaging reports, provider reports, labs. Pt is a 72-year-old woman with PMH including COPD who presented on 06/19/18 with c/o SOB and productive cough. She was found to have fever 101.9 F. Her exam was notable for rhonchi on auscultation of her lungs. CT chest was performed which was read as showing an area of consolidation in the right middle and lower lungs. Blood cultures showed no growth. Sputum grew MRSA and Citrobacter freundii. She was treated with cefepime and vancomycin. Most recently, she has been noted to have improvement and clear lungs on exam, and she has been on either room air or minimal supplem ental oxygen 1-2 L NC. Impression/Recommendations Pneumonia, healthcare associated. Based on organisms isolated from her sputum, she appears to be adequately treated. Would not recommend pursuing additional antibiotic therapy after she completes her course on 06/28/18. Christian Churchill [facility] Infectious Diseases pager [phone]
--- NOTE | 2018-06-27 21:00 | PDOC PROGRESS REPORT ---
Subjective Progress Note for:: 06/27/18 Subjective:: Patient seen by the bedside, she continues to improve, hopefully discharge home tomorrow Reason For Visit: HEALTHCARE ASSOCIATED PNEUMONIA,CLL MULTIPLE Physical Exam Vital Signs: Temp Pulse Resp BP Pulse Ox 98.4 F 103 H 16 123/76 100 06/27/18 16:22 06/27/18 19:00 06/27/18 16:22 06/27/18 16:22 06/27/18 16:22 Intake & Output 06/26/18 06/27/18 06/28/18 06:59 06:59 06:59 Intake Total 6398 295 5031 Output Total 0 Balance 4354 360 1738 Weight 49.7 kg 50.3 kg General appearance: PRESENT: no acute distress Eye exam: PRESENT: PERRLA Respiratory exam: PRESENT: clear to auscultation sendy Cardiovascular exam: PRESENT: +S1, +S2 GI/Abdominal exam: PRESENT: soft Neurological exam: PRESENT: alert Results Laboratory Results: 06/26/18 17:51 06/26/18 17:51 06/19/18 06/19/18 09:07 09:07 Creatine Kinase < 20 L Troponin I < 0.012 Impressions: Chest CT 06/19/18 00:00 IMPRESSION: 1. Consolidation predominantly in the right middle and lower lobes suggesting pneumonia. 2. No pleural effusions or pneumothorax. Chest X-Ray 06/19/18 10:37 IMPRESSION: Bilateral pneumonia or asymmetric edema. Clinical correlation is needed. Venous Doppler Study 06/26/18 00:00 IMPRESSION: NO EVIDENCE DVT OR SVT IN EITHER LEG. Assessment & Plan - Diagnosis (1) MRSA (methicillin resistant staphylococcus aureus) pneumonia Qualifiers: Laterality: right Lung location: unspecified part of lung Qualified Code(s): J15.212 - Pneumonia due to Methicillin resistant Staphylococcus aureus Is this a current diagnosis for this admission?: Yes (2) Healthcare associated bacterial pneumonia Is this a current diagnosis for this admission?: Yes (3) CLL (chronic lymphocytic leukemia) Is this a current diagnosis for this admission?: Yes (4) Chronic kidney disease, stage 3 Is this a current diagnosis for this admission?: Yes (5) Seizure disorder Is this a current diagnosis for this admission?: Yes (6) Thrombocytopenia Is this a current diagnosis for this admission?: Yes (7) Chronic atrial fibrillation Is this a current diagnosis for this admission?: Yes (8) Secondary hyperparathyroidism (of renal origin) Is this a current diagnosis for this admission?: Yes (9) Citrobacter infection Is this a current diagnosis for this admission?: Yes
[2018-06-28] MEDS: IPRATROPIUM/ALBUTEROL 0.5-2.5 MG/3 ML AMPUL NEB SCH ×4 (02:26→20:20)
[2018-06-28] MEDS: DRONABINOL 2.5 MG CAPSULE PO SCH ×2 (13:20→19:15)
[2018-06-28] MEDS: FAMOTIDINE 20 MG TABLET PO SCH (13:20)
[2018-06-28] MEDS: METOPROLOL TARTRATE 25 MG TABLET PO SCH ×2 (13:20→21:02)
[2018-06-28] MEDS: CALCITRIOL 0.25 MCG CAPSULE PO SCH (13:20)
[2018-06-28] MEDS: LEVETIRACETAM 500 MG TABLET PO SCH ×2 (13:20→21:02)
[2018-06-28] MEDS: AMLODIPINE BESYLATE 2.5 MG TABLET PO SCH (13:20)
[2018-06-28] MEDS: CHOLECALCIFEROL (D3) 400 UNIT TABLET PO SCH (13:20)
[2018-06-28] MEDS: BUDESONIDE/FORMOTEROL 160-4.5 MCG 60 PUFF/6 GM MDI IH SCH ×2 (13:22→21:03)
--- NOTE | 2018-06-28 21:16 | PDOC DISCHARGE SUMMARY ---
General - Admit/Disc Date/PCP Admission Date/Primary Care Provider: 06/19/18 12:32 ERUM HENAO MD Discharge Date: 06/28/18 - Discharge Diagnosis (1) MRSA (methicillin resistant staphylococcus aureus) pneumonia Is this a current diagnosis for this admission?: Yes (2) Healthcare associated bacterial pneumonia Is this a current diagnosis for this admission?: Yes (3) CLL (chronic lymphocytic leukemia) Is this a current diagnosis for this admission?: Yes (4) Chronic kidney disease, stage 3 Is this a current diagnosis for this admission?: Yes (5) Seizure disorder Is this a current diagnosis for this admission?: Yes (6) Thrombocytopenia Is this a current diagnosis for this admission?: Yes (7) Chronic atrial fibrillation Is this a current diagnosis for this admission?: Yes (8) Secondary hyperparathyroidism (of renal origin) Is this a current diagnosis for this admission?: Yes (9) Citrobacter infection Is this a current diagnosis for this admission?: Yes - Additional Information Prescriptions: Amlodipine Besylate [Norvasc 2.5 mg Tablet] 2.5 mg PO DAILY #90 tablet Calcitriol [Rocaltrol 0.25 mcg Capsule] 0.25 mcg PO DAILY #90 capsule Cholecalciferol (Vitamin D3) [Vitamin D3 400 Unit Tablet] 400 unit PO DAILY #90 tablet Dronabinol [Marinol 2.5 mg Capsule] 5 mg PO BID #60 capsule Home Medications: Budesonide/Formoterol Fumarate [Symbicort HFA 160-4.5 mcg Inhaler 6 gm] 2 puff IH Q12 06/19/18 Famotidine [Pepcid 20 mg Tablet] 20 mg PO DAILY 06/19/18 Ipratropium/Albuterol Sulfate [Duoneb 3 ml Ampul] 1 vial NEB Q6 06/19/18 Levetiracetam [Keppra 500 mg Tablet] 500 mg PO Q12 06/19/18 Metoprolol Tartrate [Lopressor 25 mg Tablet] 12.5 mg PO Q12 06/19/18 Amlodipine Besylate [Norvasc 2.5 mg Tablet] 2.5 mg PO DAILY #90 tablet 06/28/18 Budesonide/Formoterol Fumarate [Symbicort HFA 160-4.5 mcg Inhaler 6 gm] 2 puff IH Q12 inhaler 06/28/18 Calcitriol [Rocaltrol 0.25 mcg Capsule] 0.25 mcg PO DAILY #90 capsule 06/28/18 Cholecalciferol (Vitamin D3) [Vitamin D3 400 Unit Tablet] 400 unit PO DAILY #90 tablet 06/28/18 Dronabinol [Marinol 2.5 mg Capsule] 5 mg PO BID #60 capsule 06/28/18 Famotidine [Pepcid 20 mg Tablet] 20 mg PO DAILY tablet 06/28/18 Ipratropium/Albuterol Sulfate [Duoneb 3 ml Ampul] 3 ml [facility] RTQ6 vial.neb 06/28/18 Levetiracetam [Keppra 500 mg Tablet] 500 mg PO Q12 tablet 06/28/18 Metoprolol Tartrate [Lopressor 25 mg Tablet] 12.5 mg PO Q12 tablet 06/28/18 History of Present Illness History of Present Illness: JANET ABBOTT is 72 year old female , She is well-known to co, she was recently admitted in this hospital on 05/10/2018 and she was transferred at on 05/19/2018 to [facility] because she was diagnosed as having TTP it was felt that she needed plasmapheresis which is not available in this hospital.She has a history of CLL the last time she had Pseudomonas pneumonia,and also Citrobacter both organisms sensitive to cefepime.She came to emergency room for evaluation of shortness of breath cough, the cough is productive of sputum yellow color emergency room chest x-ray was done that suggest pneumonia subsequent CT chest of the lung was done demonstrated consolidation in the right middle lobe and lower lobe Hospital Course Hospital Course: She was admitted for the management of multilobar pneumonia, she was empirically treated with cefepime, the sputum culture grew MRSA and Citrobacter species ,vancomycin was added to the drug regimen patient responded to treatment.She has a history of CLL, chronic kidney disease stage III she has diminished appetite, this was treated with Marinol with good results Physical Exam Vital Signs: Temp Pulse Resp BP Pulse Ox 97.6 F 101 H 20 120/83 96 06/28/18 19:27 06/28/18 19:27 06/28/18 19:27 06/28/18 19:27 06/28/18 19:27 Intake & Output 06/27/18 06/28/18 06/29/18 06:59 06:59 06:59 Intake Total 964 1327 472 Balance 964 1327 472 Weight 50.3 kg 49.1 kg General appearance: PRESENT: no acute distress Eye exam: PRESENT: PERRLA Respiratory exam: PRESENT: clear to auscultation sendy Cardiovascular exam: PRESENT: +S1, +S2 GI/Abdominal exam: PRESENT: soft Neurological exam: PRESENT: alert, CN II-XII grossly intact Results Laboratory Results: 06/26/18 17:51 06/26/18 17:51 06/19/18 06/19/18 09:07 09:07 Creatine Kinase < 20 L Troponin I < 0.012 Impressions: Chest CT 06/19/18 00:00 IMPRESSION: 1. Consolidation predominantly in the right middle and lower lobes suggesting pneumonia. 2. No pleural effusions or pneumothorax. Chest X-Ray 06/19/18 10:37 IMPRESSION: Bilateral pneumonia or asymmetric edema. Clinical correlation is needed. Venous Doppler Study 06/26/18 00:00 IMPRESSION: NO EVIDENCE DVT OR SVT IN EITHER LEG. Qualifiers - * PATIENT BEING DISCHARGED WITH ANY OF THE FOLLOWING DIAGNOSIS: No
[2018-06-29] MEDS: IPRATROPIUM/ALBUTEROL 0.5-2.5 MG/3 ML AMPUL NEB SCH ×2 (02:29→08:15)
[2018-06-29 08:23] VITALS: BP 167/93
[2018-06-29] MEDS ORDERED: HEPARIN SOD (PORCINE) 1,000 UNIT/ML 10 ML VIAL ONE (09:53)
[2018-06-29] MEDS: FAMOTIDINE 20 MG TABLET PO SCH (09:59)
[2018-06-29] MEDS: CALCITRIOL 0.25 MCG CAPSULE PO SCH (09:59)
[2018-06-29] MEDS: CHOLECALCIFEROL (D3) 400 UNIT TABLET PO SCH (09:59)
[2018-06-29] MEDS: DRONABINOL 2.5 MG CAPSULE PO SCH (09:59)
[2018-06-29] MEDS: METOPROLOL TARTRATE 25 MG TABLET PO SCH (09:59)
[2018-06-29] MEDS: LEVETIRACETAM 500 MG TABLET PO SCH (10:00)
[2018-06-29] MEDS: AMLODIPINE BESYLATE 2.5 MG TABLET PO SCH (10:00)
[2018-06-29] MEDS: BUDESONIDE/FORMOTEROL 160-4.5 MCG 60 PUFF/6 GM MDI IH SCH (10:00)
== END 2018-06-29 11:02 | disposition home or self-care (01) | DRG 177 ==
LOC: ER 08:50 → EH 12:32 → 3W 18:23
PROVIDERS: ADMIT Internal Medicine; ATTEND Internal Medicine
PROC: 3E0F73Z Introduction of Anti-inflammatory into Respiratory Tract, Via Natural or Artificial Opening (ICD-10-PCS; principal; 2018-06-20)
DX: J15.212 Pneumonia due to Methicillin resistant Staphylococcus aureus (principal); M31.1 Thrombotic microangiopathy; C91.10 Chronic lymphocytic leukemia of B-cell type not having achieved remission; N25.81 Secondary hyperparathyroidism of renal origin; J44.0 Chronic obstructive pulmonary disease with (acute) lower respiratory infection; C91.11 Chronic lymphocytic leukemia of B-cell type in remission; N18.3 Chronic kidney disease, stage 3 (moderate); G40.909 Epilepsy, unspecified, not intractable, without status epilepticus; I48.2 Chronic atrial fibrillation; B96.89 Other specified bacterial agents as the cause of diseases classified elsewhere; I12.9 Hypertensive chronic kidney disease with stage 1 through stage 4 chronic kidney disease, or unspecified chronic kidney disease; I48.0 Paroxysmal atrial fibrillation; J44.9 Chronic obstructive pulmonary disease, unspecified; R09.02 Hypoxemia; M19.90 Unspecified osteoarthritis, unspecified site; Z92.21 Personal history of antineoplastic chemotherapy; Z79.899 Other long term (current) drug therapy; Z87.891 Personal history of nicotine dependence; Z88.6 Allergy status to analgesic agent; Z88.3 Allergy status to other anti-infective agents; Z88.2 Allergy status to sulfonamides; Z90.81 Acquired absence of spleen; Z82.49 Family history of ischemic heart disease and other diseases of the circulatory system
CPT/HCPCS: 36415; 71045; 71250; 80048; 80053; 80202; 81001; 82550; 82803; 82962; 83036; 83605; 83735; 83970; 84484; 85025; 85027; 85610; 87040; 87070; 87077; 87086; 87186; 87205; 87804; 93005; 93010; 93970; 94640; 96365; 99285; A9270-GY; J0692; J3370; J3490; J7060; J7620

== ENCOUNTER 2018-07-07 10:13 | Emergency (ER) | payer MEDICARE, MEDICAID ==
--- NOTE | 2018-07-07 10:26 | ER Document Report ---
ED Medical Screen (RME) - General Chief Complaint: Nose Bleed Stated Complaint: NOSE BLEED Time Seen by Provider: 07/07/18 10:23 Mode of Arrival: Ambulatory Information source: Patient TRAVEL OUTSIDE OF THE [place] IN LAST 30 DAYS: No - HPI Patient complains to provider of: epistaxis; hemoptysis Onset: Other - Pt. states she has had interrmittent R-sided nosebleed for the pst few days. Also, has had hemoptysis - Related Data Allergies/Adverse Reactions: levofloxacin Allergy (Verified 06/19/18 09:32) oxycodone Allergy (Verified 06/19/18 09:32) sulfamethoxazole Allergy (Verified 06/19/18 09:32) Past Medical History - Social History Chew tobacco use (# tins/day): No Frequency of alcohol use: None Drug Abuse: None - Past Medical History Cardiac Medical History: Reports: Hx Atrial Fibrillation - paroxysmal type, Hx Hypertension Denies: Hx Heart Attack Pulmonary Medical History: Reports: Hx Bronchitis, Hx COPD, Hx Pneumonia Denies: Hx Asthma, Hx Tuberculosis Neurological Medical History: Denies: Hx Cerebrovascular Accident, Hx Seizures Renal/ Medical History: Denies: Hx Peritoneal Dialysis Malignancy Medical History: Reports: Hx Leukemia - chronic lymphocytic leukemia Musculoskeltal Medical History: Reports Hx Arthritis - osteoarthritis Psychiatric Medical History: Denies: Hx Depression Infectious Medical History: Reports: Hx MRSA Past Surgical History: Reports: Hx Abdominal Surgery - spleenectomy, Hx Nose Surgery. Denies: Hx Bowel Surgery - Immunizations Hx Diphtheria, Pertussis, Tetanus Vaccination: Yes History of Influenza Vaccine for 03/2017 - 08/2017 Season: Yes Influenza Administration Date for 03/2017 - 08/2017 Season: 03/18/17 Doctor's Discharge - Discharge Referrals: ERUM HENAO MD [Primary Care Provider] - Follow up as needed
--- NOTE | 2018-07-07 10:53 | RADIOLOGY REPORT (SQ) ---
EXAM DESCRIPTION: CHEST 2 VIEWS COMPLETED DATE/TIME: 07/07/2018 10:41 am REASON FOR STUDY: hemoptysis COMPARISON: 06/19/2018. EXAM PARAMETERS: NUMBER OF VIEWS: two views TECHNIQUE: Digital Frontal and Lateral radiographic views of the chest acquired. RADIATION DOSE: NA LIMITATIONS: none FINDINGS: LUNGS AND PLEURA: Scattered linear densities in the lung bases and right middle lobe. No pleural effusion. MEDIASTINUM AND HILAR STRUCTURES: No masses or contour abnormalities. HEART AND VASCULAR STRUCTURES: Heart normal size. No evidence for failure. BONES: No acute findings. HARDWARE: Vascular port. Clips in the upper abdomen. OTHER: No other significant finding. IMPRESSION: SCATTERED LINEAR DENSITIES, POSSIBLY ATELECTASIS/SCARRING. CANNOT EXCLUDE UNDERLYING PN EUMONIA. TECHNICAL DOCUMENTATION: JOB ID: [id number] [employer]- All Rights Reserved Reading location - IP/workstation name: [email or web address]
[2018-07-07 10:56] LABS: ABSOLUTE BASOPHILS # (AUTO) 0.1 10^3/uL (0.0-0.2); ABSOLUTE EOSINOPHILS # (AUTO) 0.6 10^3/uL (0.0-0.6); ABSOLUTE LYMPHOCYTES (AUTO) 4.5 10^3/uL (0.5-4.7); ABSOLUTE MONOCYTES (AUTO) 0.5 10^3/uL (0.1-1.4); ABSOLUTE NEUT (AUTO) 2.7 10^3/uL (1.7-8.2); EOSINOPHILS % (AUTO) 6.8 % (0-6); HEMATOCRIT 37.4 % (36.0-47.0); HEMOGLOBIN 12.7 g/dL (12.0-15.5); LYMPHOCYTES % (AUTO) 54.4 % (13-45); MEAN CORPUSCULAR HGB CONC 34.1 g/dL (32.0-36.0); MEAN CORPUSCULAR VOLUME 94 fl (80-97); MONOCYTES % (AUTO) 5.7 % (3-13); RED BLOOD COUNT 3.98 10^6/uL (3.72-5.28); RED CELL DISTRIBUTION WIDTH 25.1 % (11.5-14.0); SEGMENTED NEUTROPHILS % (AUTO) 32.1 % (42-78); TOTAL CELLS COUNTED % (AUTO) 100 %; WHITE BLOOD COUNT 8.3 10^3/uL (4.0-10.5)
--- NOTE | 2018-07-07 11:02 | ER Document Report ---
ED General - General Chief Complaint: Nose Bleed Stated Complaint: NOSE BLEED Time Seen by Provider: 07/07/18 10:23 Mode of Arrival: Ambulatory Notes: Patient is a 72-year-old female with multiple chronic medical conditions who presents to the emergency department with a chief complaint of a nosebleed. She states that her nose started bleeding 2 days ago. She denies any large amounts of blood. She states that she is having some hemoptysis, but she can feel the blood running down her throat. Her epistaxis is never constant and comes and goes. She has not tried anything to help relieve her symptoms. She admits to picking her nose. She denies any shortness of breath, difficulty breathing, vomiting, nausea, or fever. TRAVEL OUTSIDE OF THE [place] IN LAST 30 DAYS: No - Related Data Allergies/Adverse Reactions: levofloxacin Allergy (Verified 07/07/18 10:34) oxycodone Allergy (Verified 07/07/18 10:34) sulfamethoxazole Allergy (Verified 07/07/18 10:34) Past Medical History - General Information source: Patient - Social History Smoking Status: Former Smoker Chew tobacco use (# tins/day): No Frequency of alcohol use: None Drug Abuse: None Family History: Hypertension Patient has suicidal ideation: No Patient has homicidal ideation: No - Past Medical History Cardiac Medical History: Reports: Hx Atrial Fibrillation - paroxysmal type, Hx Hypertension Denies: Hx Heart Attack Pulmonary Medical History: Reports: Hx Bronchitis, Hx COPD, Hx Pneumonia Denies: Hx Asthma, Hx Tuberculosis Neurological Medical History: Denies: Hx Cerebrovascular Accident, Hx Seizures Renal/ Medical History: Denies: Hx Peritoneal Dialysis Malignancy Medical History: Reports: Hx Leukemia - chronic lymphocytic leukemia Musculoskeletal Medical History: Reports Hx Arthritis - osteoarthritis Psychiatric Medical History: Denies: Hx Depression Infectious Medical History: Reports: Hx MRSA Past Surgical History: Reports: Hx Abdominal Surgery - spleenectomy, Hx Nose Surgery. Denies: Hx Bowel Surgery - Immunizations Hx Diphtheria, Pertussis, Tetanus Vaccination: Yes Hx Pneumococcal Vaccination: 08/18/11 Review of Systems - Review of Systems Notes: REVIEW OF SYSTEMS: CONSTITUTIONAL : Denies recent illness. Denies recent unintentional weight loss. Denies fever, chills, or sweats. EENT: See HPI CARDIOVASCULAR: Denies chest pain. RESPIRATORY: See HPI GASTROINTESTINAL: Denies nausea, vomiting, and diarrhea. Denies abdominal pain. Denies constipation. GENITOURINARY: Denies difficulty urinating, burning, blood in urine, urgency or frequency. MUSCULOSKELETAL: Denies neck and back pain. Denies joint pain or swelling. SKIN: Denies rash, itchiness, or lesions HEMATOLOGIC : Denies easy bruising or bleeding. LYMPHATIC: Denies swollen, painful, enlarged glands. NEUROLOGICAL: Denies no numbness or tingling denies weakness. Denies headache. Denies altered mental status. Denies alteration in speech. PSYCHIATRIC: Denies stress, anxiety, alteration in sleep patterns, or depression. All other systems reviewed and negative. Physical Exam - Vital signs Vitals: Temp Pulse Resp BP Pulse Ox 98.3 F 99 16 140/89 H 92 07/07/18 10:18 07/07/18 10:18 07/07/18 10:18 07/07/18 10:18 07/07/18 10:18 - Notes Notes: PHYSICAL EXAMINATION: GENERAL: Appears chronically ill, no acute distress. HEAD: Normocephalic, atraumatic. EYES: PERRL, conjunctiva normal, all extraocular movements intact, sclera nonicteric ENT: Moist mucous membranes. Mild amount of old blood noted in bilateral nares. Erythema and edema noted to bilateral nares. NECK: Supple, no noticeable swelling, redness, rash. Normal range of motion. LUNGS: Equal breath sounds bilaterally and clear to auscultation. No wheezes rales or rhonchi. CARDIOVASCULAR: S1-S2, regular rate, regular rhythm. Radial pulses 2+, normal. ABDOMEN: Normoactive bowel sounds. Soft, nontender, no guarding, no rebound tenderness, and no masses palpated. EXTREMITIES: Normal strength and range of motion, no pitting or edema. No cyanosis. NEUROLOGICAL: Moves all extremities upon command. Strength 5/5 in all extremities. PSYCH: Normal mood, normal affect. SKIN: Warm, dry. No rash, lesions, ulcerations noted. Normal skin turgor. Course - Re-evaluation Re-evalutation: Although the patient's chest x-ray states that there could be a possible pneumonia, the patient's lung sounds are clear and her chest x-ray looks better than her previous visit on June 19. I do not suspect she has pneumonia. Her labs are unremarkable she is not anemic. I do not suspect that she has a septal abscess, peritonsillar abscess, pulmonary emboli, or any life-threatening etiology at this time. She will be sent home with Afrin and Flonase to help w ith her symptoms. Her sisters to take care of her at bedside. Verbal discharge instructions were given to the patient and her sisters. They verbalized understanding. They are stable for discharge. - Vital Signs Vital signs: Temp Pulse Resp BP Pulse Ox 98.3 F 88 24 H 139/85 H 96 07/07/18 10:18 07/07/18 12:15 07/07/18 12:15 07/07/18 12:15 07/07/18 12:15 - Laboratory Result Diagrams: 07/07/18 10:28 07/07/18 10:28 Laboratory results interpreted by me: 07/07/18 07/07/18 10:28 10:28 RDW 25.1 H Plt Count 94 L Seg Neutrophils % 32.1 L Lymphocytes % 54.4 H Eosinophils % 6.8 H BUN 72 H Creatinine 2.29 H Est GFR ( Amer) 25 L Est GFR (Non-Af Amer) 21 L Discharge - Discharge Clinical Impression: Epistaxis Condition: Stable Disposition: HOME, SELF-CARE Additional Instructions: You were seen today in the emergency department for a nosebleed. Nosebleed may be due to picking at her nose. Your chest x-ray is better than your last visit. Please start Flonase 1 spray to each nostril twice a day. You can also use Afrin spray. Please use this sparingly for nosebleeds. Please follow-up with your primary care provider in regards to this visit. If you develop shortness of breath, difficulty breathing, or any symptoms that are worrisome to you, please return to the emergency department. Prescriptions: Fluticasone Propionate [Flonase Nasal Joseph 50 Mcg/Joseph 16 gm] 1 spray NASL Q12 #1 inhaler Oxymetazoline HCl [Afrin 0.05% Nasal Joseph 15 ml Bottle] 2 - 3 spray NASL ASDIR PRN #1 bottle PRN Reason: Referrals: ERUM HENAO MD [Primary Care Provider] - Follow up in 1 week
[2018-07-07 11:06] LABS: ALANINE AMINOTRANSFERASE 18 U/L (9-52); ALBUMIN 3.7 g/dL (3.5-5.0); ALKALINE PHOSPHATASE 124 U/L (38-126); ANION GAP 10 (5-19); ASPARTATE AMINO TRANSFERASE 23 U/L (14-36); BILIRUBIN,DIRECT 0.2 mg/dL (0.0-0.4); BILIRUBIN,TOTAL 0.6 mg/dL (0.2-1.3); BLOOD UREA NITROGEN 72 mg/dL (7-20); CALCIUM 9.1 mg/dL (8.4-10.2); CARBON DIOXIDE 28 mmol/L (22-30); CHLORIDE 106 mmol/L (98-107); GLUCOSE 99 mg/dL (75-110); POTASSIUM 3.6 mmol/L (3.6-5.0); SODIUM 143.6 mmol/L (137-145); TOTAL PROTEIN 6.4 g/dL (6.3-8.2)
[2018-07-07 11:12] LABS: PLATELET COUNT 94 10^3/uL (150-450)
[2018-07-07 11:20] LABS: ANISOCYTOSIS 3+; PLATELET COMMENT DECREASED; POIKILOCYTOSIS 1+; TARGET CELLS SLIGHT; TEAR DROP CELLS SLIGHT; TOXIC GRANULATION SLIGHT
[2018-07-07 12:48] VITALS: BP 139/85
== END 2018-07-07 12:15 | disposition home or self-care (01) ==
LOC: ER 10:13
DX: R04.0 Epistaxis (principal); J44.9 Chronic obstructive pulmonary disease, unspecified; I10 Essential (primary) hypertension; Z88.1 Allergy status to other antibiotic agents; Z88.5 Allergy status to narcotic agent; Z87.891 Personal history of nicotine dependence; Z87.01 Personal history of pneumonia (recurrent); Z85.6 Personal history of leukemia; Z90.81 Acquired absence of spleen
CPT/HCPCS: 36415; 71046; 80053; 85025; 99283

== ENCOUNTER 2018-07-22 11:08 | Emergency (ER) | payer MEDICARE, MEDICAID ==
[2018-07-22] MEDS ORDERED: IPRATROPIUM/ALBUTEROL 0.5-2.5 MG/3 ML AMPUL NEB ONE (12:28)
--- NOTE | 2018-07-22 12:29 | ER Document Report ---
ED Respiratory Problem - General Chief Complaint: Productive Cough Stated Complaint: COUGH,CONGESTION Time Seen by Provider: 07/22/18 12:20 Primary Care Provider: ERUM HENAO MD [Primary Care Provider] - Follow up as needed Notes: 72-year-old female patient emergency department chief complaint of cough. Patient states that she has had a cough on and off for several weeks. Has not been able to see her primary care doctor. Think she needs an antibiotic. Patient is asplenic. Will use a get sick and require antibiotic. Denies any chest pain, abdominal pain. Intermittent fevers have been reported. TRAVEL OUTSIDE OF THE [place] IN LAST 30 DAYS: No - HPI Patient complains to provider of: Cough, Short of breath Duration: Continuous Quality of pain: Achy Severity: Mild - Related Data Allergies/Adverse Reactions: levofloxacin Allergy (Verified 07/22/18 11:12) oxycodone Allergy (Verified 07/22/18 11:12) sulfamethoxazole Allergy (Verified 07/22/18 11:12) Past Medical History - General Information source: Patient - Social History Smoking Status: Former Smoker Frequency of alcohol use: None Drug Abuse: None Family History: Hypertension Patient has suicidal ideation: No Patient has homicidal ideation: No - Past Medical History Cardiac Medical History: Reports: Hx Atrial Fibrillation - paroxysmal type, Hx Hypertension Denies: Hx Heart Attack Pulmonary Medical History: Reports: Hx Bronchitis, Hx COPD, Hx Pneumonia Denies: Hx Asthma, Hx Tuberculosis Neurological Medical History: Denies: Hx Cerebrovascular Accident, Hx Seizures Renal/ Medical History: Denies: Hx Peritoneal Dialysis Malignancy Medical History: Reports: Hx Leukemia - chronic lymphocytic leukemia Musculoskeletal Medical History: Reports Hx Arthritis - osteoarthritis Psychiatric Medical History: Denies: Hx Depression Infectious Medical History: Reports: Hx MRSA Past Surgical History: Reports: Hx Abdominal Surgery - spleenectomy, Hx Nose Surgery. Denies: Hx Bowel Surgery - Immunizations Hx Diphtheria, Pertussis, Tetanus Vaccination: Yes Hx Pneumococcal Vaccination: 08/18/11 Review of Systems - Review of Systems Constitutional: denies: Fever, Malaise, Weakness EENT: denies: Double vision, Difficulty swallowing, Throat swelling, Mouth pain Cardiovascular: denies: Chest pain, Palpitations, Heart racing Respiratory: Cough, Short of breath, Wheezing Gastrointestinal: denies: Abdominal pain, Diarrhea, Nausea, Vomiting Musculoskeletal: denies: Back pain, Gout, Joint pain Skin: denies: Dryness, Lesions, Lumps, Rash Neurological/Psychological: denies: Confusion, Weakness, Numbness Physical Exam - Vital signs Vitals: Temp Pulse Resp BP Pulse Ox 98.3 F 93 24 H 142/90 H 95 07/22/18 11:34 07/22/18 11:34 07/22/18 11:34 07/22/18 11:34 07/22/18 11:34 Interpretation: Normal - General General appearance: Appears well, Alert - HEENT Head: Normocephalic, Atraumatic Eyes: Normal Pupils: PERRL - Respiratory Respiratory status: No respiratory distress Chest status: Nontender Breath sounds: Normal Chest palpation: Normal - Cardiovascular Rhythm: Regular Heart sounds: Normal auscultation Murmur: No - Abdominal Inspection: Normal Distension: No distension Bowel sounds: Normal Tenderness: Nontender Organomegaly: No organomegaly - Back Back: Normal, Nontender - Extremities General upper extremity: Normal inspection, Nontender, Normal color, Normal ROM, Normal temperature General lower extremity: Normal inspection, Nontender, Normal color, Normal ROM, Normal temperature, Normal weight bearing. No: Merrill's sign - Neurological Neuro grossly intact: Yes Cognition: Normal Orientation: AAOx4 [place] Coma Scale Eye Opening: Spontaneous [place] Coma Scale Verbal: Oriented [place] Coma Scale Motor: Obeys Commands [place] Coma Scale Total: 15 Speech: Normal Motor strength normal: LUE, RUE, LLE, RLE Sensory: Normal - Psychological Associated symptoms: Normal affect, Normal mood - Skin Skin Temperature: Warm Skin Moisture: Dry Skin Color: Normal Course - Re-evaluation Re-evalutation: 07/22/18 13:49 Chest X-Ray 07/22/18 12:28 IMPRESSION: Redemonstrated bibasilar fibrotic pulmonary opacity and elevation of the left hemidiaphragm. There is no acutely superimposed airspace opacity. - Vital Signs Vital signs: Temp Pulse Resp BP Pulse Ox 98.3 F 93 24 H 142/90 H 95 07/22/18 11:34 07/22/18 11:34 07/22/18 11:34 07/22/18 11:34 07/22/18 11:34 Discharge - Discharge Clinical Impression: COPD exacerbation Condition: Good Disposition: HOME, SELF-CARE Instructions: Pneumonia ([facility]) Prescriptions: Albuterol Sulfate [Proair HFA Inhalation Aerosol 8.5 gm MDI] 1 puff IH Q4 PRN #1 mdi PRN Reason: Amoxicillin Trihydrate [Amoxil 500 mg Capsule] 500 mg PO TID 10 Days #30 capsule Prednisone [Deltasone 20 mg Tablet] 3 tab PO DAILY 5 Days tablet Referrals: ERUM HENAO MD [Primary Care Provider] - Follow up in 3-5 days
--- NOTE | 2018-07-22 13:43 | RADIOLOGY REPORT (SQ) ---
EXAM DESCRIPTION: CHEST 2 VIEWS COMPLETED DATE/TIME: 07/22/2018 1:06 pm REASON FOR STUDY: cough COMPARISON: Chest radiographs 07/07/2018, CT chest, 06/19/2018 EXAM PARAMETERS: NUMBER OF VIEWS: two views TECHNIQUE: Digital Frontal and Lateral radiographic views of the chest acquired. RADIATION DOSE: NA LIMITATIONS: none FINDINGS: LUNGS AND PLEURA: Redemonstrated bibasilar fibrotic pulmonary opacity and elevation of the left hemidiaphragm. There is no acutely superimposed airspace opacity. MEDIASTINUM AND HILAR STRUCTURES: No masses or contour abnormalities. HEART AND VASCULAR STRUCTURES: Heart normal size. No evidence for failure. BONES: No acute findings. HARDWARE: None in the chest. OTHER: Right chest port catheter. IMPRESSION: Redemonstrated bibasilar fibrotic pulmonary opacity and elevation of the left hemidiaphr agm. There is no acutely superimposed airspace opacity. TECHNICAL DOCUMENTATION: JOB ID: [id number] [employer]- All Rights Reserved Reading location - IP/workstation name: [email or web address]
[2018-07-22 14:02] VITALS: BP 145/98
== END 2018-07-22 14:03 | disposition home or self-care (01) ==
LOC: ER 11:08
DX: J44.1 Chronic obstructive pulmonary disease with (acute) exacerbation (principal); R05 Cough; R50.9 Fever, unspecified; Z87.891 Personal history of nicotine dependence
CPT/HCPCS: 94640; 99285; 71046; A9270; J7620

== ENCOUNTER 2018-07-31 14:52 | Inpatient (IN) | payer MEDICARE, MEDICAID ==
--- NOTE | 2018-07-31 15:03 | ER Document Report ---
ED Medical Screen (RME) - General Chief Complaint: Cough Stated Complaint: DIFFICULTY BREATHING Time Seen by Provider: 07/31/18 14:59 Primary Care Provider: ERUM HENAO MD [Primary Care Provider] - Follow up as needed Notes: 72 years old female who was diagnosed with lung cancer, recently discharged from [facility] after being treated as well as intubated. Presents today with increasing shortness of breath and crackling throughout the lung field. She do not want to be resuscitated or intubated. TRAVEL OUTSIDE OF THE [place] IN LAST 30 DAYS: No - Related Data Allergies/Adverse Reactions: levofloxacin Allergy (Verified 07/31/18 14:57) oxycodone Allergy (Verified 07/31/18 14:57) sulfamethoxazole Allergy (Verified 07/31/18 14:57) Past Medical History - Past Medical History Cardiac Medical History: Reports: Hx Atrial Fibrillation - paroxysmal type, Hx Hypertension Denies: Hx Heart Attack Pulmonary Medical History: Reports: Hx Bronchitis, Hx COPD, Hx Pneumonia Denies: Hx Asthma, Hx Tuberculosis Neurological Medical History: Denies: Hx Cerebrovascular Accident, Hx Seizures Renal/ Medical History: Denies: Hx Peritoneal Dialysis Malignancy Medical History: Reports: Hx Leukemia - chronic lymphocytic leukemia Musculoskeltal Medical History: Reports Hx Arthritis - osteoarthritis Psychiatric Medical History: Denies: Hx Depression Infectious Medical History: Reports: Hx MRSA Past Surgical History: Reports: Hx Abdominal Surgery - spleenectomy, Hx Nose Surgery. Denies: Hx Bowel Surgery - Immunizations Hx Diphtheria, Pertussis, Tetanus Vaccination: Yes History of Influenza Vaccine for 03/2017 - 08/2017 Season: Yes Influenza Administration Date for 03/2017 - 08/2017 Season: 03/18/17 Physical Exam - Vital signs Vitals: Temp Pulse Resp BP Pulse Ox 97.5 F 110 H 24 H 140/79 H 86 L 07/31/18 14:58 07/31/18 14:58 07/31/18 14:58 07/31/18 14:58 07/31/18 14:58 Course - Vital Signs Vital signs: Temp Pulse Resp BP Pulse Ox 97.5 F 110 H 24 H 140/79 H 86 L 07/31/18 14:58 07/31/18 14:58 07/31/18 14:58 07/31/18 14:58 07/31/18 14:58 Doctor's Discharge - Discharge Referrals: ERUM HENAO MD [Primary Care Provider] - Follow up as needed
[2018-07-31] MEDS ORDERED: IPRATROPIUM/ALBUTEROL 0.5-2.5 MG/3 ML AMPUL NEB ONE ×2 (15:19→17:13)
--- NOTE | 2018-07-31 15:44 | RADIOLOGY REPORT (SQ) ---
EXAM DESCRIPTION: CHEST SINGLE VIEW COMPLETED DATE/TIME: 07/31/2018 3:34 pm REASON FOR STUDY: Shortness of breath COMPARISON: 07/22/2018 EXAM PARAMETERS: NUMBER OF VIEWS: One view. TECHNIQUE: Single frontal radiographic view of the chest acquired. RADIATION DOSE: NA LIMITATIONS: None. FINDINGS: LUNGS AND PLEURA: Unchanged bibasilar scarring or atelectasis. MEDIASTINUM AND HILAR STRUCTURES: No masses. Contour normal. HEART AND VASCULAR STRUCTURES: Heart normal in size. Normal vasculature. BONES: No acute findings. HARDWARE: None in the chest. OTHER: Right chest port catheter. IMPRESSION: Unchanged bibasilar scarring or atelectasis. No new airspace opacity. TECHNICAL DOCUMENTATION: JOB ID: [id number] [email or web address] All Rights Reserved Reading location - IP/workstation name: [email or web address]
[2018-07-31 16:22] LABS: HEMATOCRIT 33.3 % (36.0-47.0); MEAN CORPUSCULAR HGB CONC 33.1 g/dL (32.0-36.0); MEAN CORPUSCULAR VOLUME 97 fl (80-97); RED BLOOD COUNT 3.45 10^6/uL (3.72-5.28); RED CELL DISTRIBUTION WIDTH 24.4 % (11.5-14.0); WHITE BLOOD COUNT 22.4 10^3/uL (4.0-10.5)
[2018-07-31 16:43] LABS: ABSOLUTE MONOCYTES # (MANUAL) 1.1 10^3/uL (0.1-1.4); ABSOLUTE NEUTROPHILS# (MANUAL) 1.6 10^3/uL (1.7-8.2); BAND NEUTROPHILS % (MANUAL) 3 % (3-5); BASOPHILS % (MANUAL) 0 % (0-2); EOSINOPHILS % (MANUAL) 3 % (0-6); LYMPHOCYTES % (MANUAL) 70 % (13-45); MONOCYTES % (MANUAL) 5 % (3-13); NUCLEATED RED BLOOD CELLS 1 /100 WBC (0); SEGMENTED NEUTROPHILS % (MAN) 4 % (42-78); TOTAL CELLS COUNTED 100
[2018-07-31 16:45] LABS: NT PRO BNP 5000 pg/mL (5-900)
[2018-07-31 16:47] LABS: ANISOCYTOSIS 3+; BURR CELLS SLIGHT; HOWELL-JOLLY BODIES PRESENT; OVALOCYTES 1+; PLATELET COMMENT DECREASED; PLATELET COUNT 52 10^3/uL (150-450); POIKILOCYTOSIS 1+; SCHISTOCYTES SLIGHT; SMUDGE CELLS PRESENT; TARGET CELLS 1+
[2018-07-31] MEDS ORDERED: CEFTRIAXONE 1 GM/D5W RTU 1 GM/50 ML RTUPB IV ONE (16:49)
[2018-07-31 16:58] LABS: ALANINE AMINOTRANSFERASE 18 U/L (9-52); ALBUMIN 3.2 g/dL (3.5-5.0); ALKALINE PHOSPHATASE 100 U/L (38-126); ANION GAP 7 (5-19); ASPARTATE AMINO TRANSFERASE 42 U/L (14-36); BILIRUBIN,DIRECT 0.7 mg/dL (0.0-0.4); BILIRUBIN,TOTAL 1.2 mg/dL (0.2-1.3); BLOOD UREA NITROGEN 44 mg/dL (7-20); CALCIUM 8.9 mg/dL (8.4-10.2); CARBON DIOXIDE 31 mmol/L (22-30); CHLORIDE 105 mmol/L (98-107); GLUCOSE 91 mg/dL (75-110); POTASSIUM 3.7 mmol/L (3.6-5.0); SODIUM 143.2 mmol/L (137-145); TOTAL PROTEIN 6.1 g/dL (6.3-8.2)
[2018-07-31 17:04] LABS: CREATINE KINASE < 20 U/L (30-135)
[2018-07-31 17:05] LABS: CREATINE KINASE MB < 0.22 ng/mL (<4.55); TROPONIN I < 0.012 ng/mL
--- NOTE | 2018-07-31 17:46 | ER Document Report ---
ED Respiratory Problem - General Chief Complaint: Cough Stated Complaint: DIFFICULTY BREATHING Time Seen by Provider: 07/31/18 14:59 Notes: Patient with lung cancer who is seeing Dr. Barahona locally and also recently [facility]. She comes in today saying that she is having worsening difficulty breathing over the last few days. In addition, she is having difficulty standing and keeping her balance and walking. She used to be on home oxygen, but no longer has it. She does have home nebulizers of albuterol that she at 8 AM today. She has cough with congestion and is producing phlegm. Says she feels very weak. Not aware of any fever. TRAVEL OUTSIDE OF THE [place] IN LAST 30 DAYS: No - Related Data Allergies/Adverse Reactions: levofloxacin Allergy (Verified 07/31/18 14:57) oxycodone Allergy (Verified 07/31/18 14:57) sulfamethoxazole Allergy (Verified 07/31/18 14:57) Past Medical History - Social History Smoking Status: Unknown if Ever Smoked Family History: Reviewed & Not Pertinent, Hypertension Patient has suicidal ideation: No Patient has homicidal ideation: No - Past Medical History Cardiac Medical History: Reports: Hx Atrial Fibrillation - paroxysmal type, Hx Hypertension Pulmonary Medical History: Reports: Hx Bronchitis, Hx COPD, Hx Pneumonia Malignancy Medical History: Reports: Hx Leukemia - chronic lymphocytic leukemia, Hx Lung Cancer Musculoskeletal Medical History: Reports Hx Arthritis - osteoarthritis Infectious Medical History: Reports: Hx MRSA Past Surgical History: Reports: Hx Abdominal Surgery - spleenectomy, Hx Nose Surgery - Immunizations Hx Diphtheria, Pertussis, Tetanus Vaccination: Yes Hx Pneumococcal Vaccination: 08/18/11 Review of Systems - Review of Systems Notes: Patient is too weak and short of breath to provide review of systems. Some information obtained from sister. REVIEW OF SYSTEMS: CONSTITUTIONAL : Denies fever. EENT: Denies eye, ear, nose or mouth or throat pain or other symptoms. CARDIOVASCULAR: Denies chest pain. RESPIRATORY: See HPI. GASTROINTESTINAL: Denies abdominal pain or nausea, vomiting, or diarrhea. GENITOURINARY: Denies difficulty or painful urinating, urinary frequency, blood in urine. MUSCULOSKELETAL: Denies back or neck pain. Denies joint pain or swelling. SKIN: Denies rash or skin lesions. NEUROLOGICAL: Denies LOC or altered mental status. Denies headache. Denies sensory loss or motor deficits. ALL OTHER SYSTEMS REVIEWED AND NEGATIVE. Physical Exam - Vital signs Vitals: Temp Pulse Resp BP Pulse Ox 97.5 F 110 H 24 H 140/79 H 86 L 07/31/18 14:58 07/31/18 14:58 07/31/18 14:58 07/31/18 14:58 07/31/18 14:58 Interpretation: Hypoxic - 85-86% on room air Notes: PHYSICAL EXAMINATION: GENERAL: Well-appearing, in no acute distress. Hypoxia. Appears to be weak. Is oriented and answers questions asked of her, but is hard to understand because of her persistent cough. HEAD: Atraumatic, normocephalic. EYES: Pupils equal round and reactive to light, extraocular movements intact. ENT: oropharynx clear without exudates. Moist mucous membranes. NECK: Normal range of motion, supple. LUNGS: Breath sounds somewhat decreased throughout, but present bilaterally. S cattered rhonchi and rales in wheezes heard. HEART: Regular rate and rhythm without murmurs. ABDOMEN: Soft, nontender. No guarding or rebound. No masses. BACK: No tenderness throughout entire back. EXTREMITIES: Normal range of motion without pain. No pitting edema. NEUROLOGICAL: Normal speech, gait not tested. Moves all 4 extremities. Awake, alert, and oriented x3. Patient speaks very softly and is difficult to understand what she is saying. PSYCH: Normal mood, normal affect. SKIN: Warm, dry, no rashes. Course - Re-evaluation Re-evalutation: 07/31/18 18:08 Discussed patient's medical care with the patient and her sisters who are present. They are all in agreement that the patient does not wish to be intubat ed or put on a ventilator or assisted to breathe in any way other than oxygen. I also all agree that the patient does not want to have cardiac compressions, CPR, or any other form of resuscitative maneuvers other than antibiotics, IV fluids, other medications, and pain medications. Spoke with Dr. Tristan who is going to admit the patient to the floor. Patient seemed to benefit from the DuoNeb's given in the emergency department. Her white count was 25,000 so I gave her a gram of Rocephin IV, not knowing at the time that she had CLL. Patient CBC shows very few neutrophils. Almost exclusively lymphocytes or atypical lymphocytes, consistent with CLL - Vital Signs Vital signs: Temp Pulse Resp BP Pulse Ox 97.5 F 110 H 24 H 140/79 H 86 L 07/31/18 14:58 07/31/18 14:58 07/31/18 14:58 07/31/18 14:58 07/31/18 14:58 - Laboratory Result Diagrams: 07/31/18 16:01 07/31/18 16:01 Laboratory results interpreted by me: 07/31/18 07/31/18 07/31/18 16:01 16:01 16:01 WBC 22.4 H RBC 3.45 L Hgb 11.0 L Hct 33.3 L RDW 24.4 H Plt Count 52 L Seg Neuts % (Manual) 4 L Lymphocytes % (Manual) 70 H Abs Neuts (Manual) 1.6 L Abs Lymphs (Manual) 19.0 H Absolute Eos (Manual) 0.7 H Carbon Dioxide 31 H BUN 44 H Creatinine 2.08 H Est GFR ( Amer) 28 L Est GFR (Non-Af Amer) 24 L Direct Bilirubin 0.7 H AST 42 H Creatine Kinase < 20 L NT-Pro-B Natriuret Pep 5000 H Total Protein 6.1 L Albumin 3.2 L - Diagnostic Test Radiology results interpreted by me: 07/31/18 18:02 Chest x-ray shows unchanged bibasilar scarring or atelectasis. No new airspace opacity. - EKG Interpretation by Me EKG shows normal: Sinus rhythm Rate: Normal Rhythm: NSR Critical Care Note - Critical Care Note Total time excluding time spent on procedures (mins): 30 Discharge - Discharge Clinical Impression: History of MRSA infection, Upper respiratory infection, Lung cancer, Chronic lymphocytic leukemia, DNR (do not resuscitate) Condition: Stable Disposition: ADMITTED INPATIENT Admitting Provider: [facility] Unit Admitted: Medical Floor
--- NOTE | 2018-07-31 19:25 | RADIOLOGY REPORT (SQ) ---
EXAM DESCRIPTION: CT HEAD WITHOUT COMPLETED DATE/TIME: 07/31/2018 6:57 pm REASON FOR STUDY: Weak, trouble with balance, Hx lung cancer COMPARISON: 05/19/2018 TECHNIQUE: Axial images acquired through the brain without intravenous contrast. Images reviewed wi th bone, brain and subdural windows. Additional sagittal and coronal reconstructions were generated. Images stored on PACS. All CT scanners at this facility use dose modulation, iterative reconstruction, and/or weight based d osing when appropriate to reduce radiation dose to as low as reasonably achievable (ALARA). [facility]: Dose Right [facility]: CareDose [facility]: Dose Right [facility]: Teradose 4D [facility]: Smart [employer] RADIATION DOSE: CT Rad equipment meets quality standard of care and radiation dose reduction techniq ues were employed. CTDIvol: 53.2 mGy. DLP: 964 mGy-cm. mGy. LIMITATIONS: None. FINDINGS: VENTRICLES: Normal size and contour. CEREBRUM: No masses. No hemorrhage. No midline shift. No evidence for acute infarction. Few scatte red areas of low density in the white matter most likely chronic small vessel ischemic changes. CEREBELLUM: No masses. No hemorrhage. No alteration of density. No evidence for acute infarction. EXTRAAXIAL SPACES: No fluid collections. No masses. ORBITS AND GLOBE: No intra- or extraconal masses. Normal contour of globe without masses. CALVARIUM: Multiple small lytic lesions are present in the calvarium. This is a new finding. PARANASAL SINUSES: There is marked mucoperiosteal thickening in the maxillary sinuses and in the ethm oid air cells. SOFT TISSUES: No mass or hematoma. OTHER: No other significant finding. IMPRESSION: 1. Mild chronic microvascular ischemia with no acute intracranial imaging findings. 2. There are multiple lytic lesions in the calvarium that are new. Metastases versus an infiltrativ e process. 3. Extensive sinus disease. EVIDENCE OF ACUTE STROKE: NO. COMMENT: Quality ID # [id number]: Final reports with documentation of one or more dose reduction techniques (e.g., Automated exposure control, adjustment of the mA and/or kV according to patient size, use of iterative reconstruction technique) TECHNICAL DOCUMENTATION: JOB ID: [id number] [employer]- All Rights Reserved Reading location - IP/workstation name: [email or web address]
[2018-07-31] MEDS ORDERED: IPRATROPIUM/ALBUTEROL 0.5-2.5 MG/3 ML AMPUL NEB PRN (20:05)
--- NOTE | 2018-07-31 20:13 | PDOC H&P ---
History of Present Illness Admission Date/PCP: 07/31/18 18:19 ERUM HENAO MD History of Present Illness: JANET ABBOTT is a 72 year old female,She came to the emergency room for tonia luation of cough shortness of breath. She has a history of chronic lymphocytic leukemia, MRSA pneumonia, immunosuppression on outpatient IVIG infusion therapy, chronic kidney disease stage III, multiple hospitalization. The emergency room a chest x-ray was done, the findings was not definitively pneumonia it was felt it was chronic changes, subsequent CT chest without contrast was obtained, it d emonstrated areas of consolidation/atelectasis in the lung bases bilaterally. There is bronchiectasis within the region of the consolidation. She also complains of gait and balance disorder, because of her symptoms in the emergency room CT head was done, it demonstrated multiple small lytic lesions in the calvarium. Because of these findings a bone survey and a bone scan, a bone survey was ordered to rule out possible osteoclastic lesion like multiple myeloma, a bone scan to rule out other osteoblastic lesion like metastatic solid tumors, breast cancer etc., the bone survey demonstrated multiple biparietal lytic lesions worrisome for metastatic disease. Also found was 50% compression deformity at L1, diffuse subcu distal right femoral diaphysis/metaphysis lytic lesions worrisome for metastatic disease. Past Medical History Cardiac Medical History: Reports: Atrial Fibrillation - paroxysmal type, Hypertension Pulmonary Medical History: Reports: Bronchitis, Chronic Obstructive Pulmonary Disease (COPD), Pneumonia Malignancy Medical History: Reports: Leukemia - chronic lymphocytic leukemia Musculoskeltal Medical History: Reports: Arthritis - osteoarthritis Infectious Medical History: Reports: Methicillin-Resistant Staph Aureus Social History Smoking Status: Unknown if Ever Smoked Frequency of Alcohol Use: None Hx Recreational Drug Use: No Drugs: None Hx Prescription Drug Abuse: No Family History Family History: Reviewed & Not Pertinent, Hypertension Parental Family History Reviewed: Yes Children Family History Reviewed: Yes Sibling(s) Family History Reviewed.: Yes Medication/Allergy Home Medications: RX: Budesonide/Formoterol Fumarate [Symbicort HFA 160-4.5 mcg Inhaler 6 gm] 2 puff IH Q12 06/19/18 RX: Levetiracetam [Keppra 500 mg Tablet] 500 mg PO Q12 06/19/18 RX: Amlodipine Besylate [Norvasc 2.5 mg Tablet] 2.5 mg PO DAILY #90 tablet 06/28/18 RX: Calcitriol [Rocaltrol 0.25 mcg Capsule] 0.25 mcg PO DAILY #90 capsule 06/28/18 RX: Cholecalciferol (Vitamin D3) [Vitamin D3 400 Unit Tablet] 400 unit PO DAILY #90 tablet 06/28/18 RX: Dronabinol [Marinol 2.5 mg Capsule] 5 mg PO BID #60 capsule 06/28/18 RX: Ipratropium/Albuterol Sulfate [Duoneb 3 ml Ampul] 3 ml NEB RTQ6 vial.neb 06/28/18 Fluticasone Propionate [Flonase Nasal [place]rie 50 Mcg/Erie 16 gm] 1 spray NASL Q12 #1 inhaler 07/07/18 Amoxicillin Trihydrate [Amoxil 500 mg Capsule] 500 mg PO TID 10 Days #30 capsule 07/22/18 Benzonatate [Tessalon Perle 100 mg Capsule] 100 mg PO Q8HP PRN 07/31/18 RX: Albuterol Sulfate [Proair HFA Inhalation Aerosol 8.5 gm MDI] 1 puff IH Q4 PRN 07/31/18 RX: Famotidine [Pepcid 20 mg Tablet] 20 mg PO QHS 07/31/18 RX: Metoprolol Tartrate [Lopressor 25 mg Tablet] 25 mg PO Q12 07/31/18 RX: Montelukast Sodium [Singulair 10 mg Tablet] 10 mg PO DAILY 07/31/18 Allergies/Adverse Reactions: levofloxacin Allergy (Verified 07/31/18 14:57) oxycodone Allergy (Verified 07/31/18 14:57) sulfamethoxazole Allergy (Verified 07/31/18 14:57) Review of Systems Constitutional: PRESENT: fatigue, weight loss Cardiovascular: PRESENT: palpitations Respiratory: PRESENT: cough, sputum Gastrointestinal: PRESENT: nausea Musculoskeletal: PRESENT: back pain Neurological: PRESENT: frequent falls Psychiatric: PRESENT: anxiety Endocrine: PRESENT: heat intolerance Hematologic/Lymphatic: ABSENT: easy bleeding, easy bruising, lymphadenopathy Physical Exam Vital Signs: Temp Pulse Resp BP Pulse Ox 97.5 F 110 H 24 H 140/79 H 86 L 07/31/18 14:58 07/31/18 14:58 07/31/18 14:58 07/31/18 14:58 02/13/19 14:58 Intake & Output 07/30/18 07/31/18 08/01/18 06:59 06:59 06:59 Intake Total 50 Balance 50 Weight 50.1 kg General appearance: PRESENT: no acute distress Head exam: PRESENT: atraumatic, normocephalic Eye exam: PRESENT: PERRLA Ear exam: PRESENT: normal external ear exam Mouth exam: PRESENT: moist, tongue midline Neck exam: PRESENT: full ROM Respiratory exam: PRESENT: rhonchi Cardiovascular exam: PRESENT: RRR, +S1, +S2 GI/Abdominal exam: PRESENT: normal bowel sounds, soft Rectal exam: PRESENT: deferred Neurological exam: PRESENT: alert, CN II-XII grossly intact. ABSENT: motor sensory deficit Skin exam: PRESENT: dry, intact, warm Results Laboratory Results: 07/31/18 16:01 07/31/18 16:01 07/31/18 07/31/18 16:01 16:01 WBC 22.4 H RBC 3.45 L Hgb 11.0 L Hct 33.3 L MCV 97 MCH 32.0 MCHC 33.1 RDW 24.4 H Plt Count 52 L Seg Neutrophils % Not Reportable Lymphocytes % Not Reportable Monocytes % Not Reportable Eosinophils % Not Reportable Basophils % Not Reportable Absolute Neutrophils Not Reportable Absolute Lymphocytes Not Reportable Absolute Monocytes Not Reportable Absolute Eosinophils Not Reportable Absolute Basophils Not Reportable Sodium 143.2 Potassium 3.7 Chloride 105 Carbon Dioxide 31 H Anion Gap 7 BUN 44 H Creatinine 2.08 H Est GFR ( Amer) 28 L Est GFR (Non-Af Amer) 24 L Glucose 91 Calcium 8.9 Total Bilirubin 1.2 AST 42 H ALT 18 Alkaline Phosphatase 100 Total Protein 6.1 L Albumin 3.2 L 07/31/18 07/31/18 16:01 16:01 Creatine Kinase < 20 L CK-MB (CK-2) < 0.22 Troponin I < 0.012 NT-Pro-B Natriuret Pep 5000 H Impressions: Chest X-Ray 07/31/18 15:02 IMPRESSION: Unchanged bibasilar scarring or atelectasis. No new airspace opacity. Head CT 07/31/18 17:23 IMPRESSION: 1. Mild chronic microvascular ischemia with no acute intracranial imaging findings. 2. There are multiple lytic lesions in the calvarium that are new. Metastases versus an infiltrative process. 3. Extensive sinus disease. EVIDENCE OF ACUTE STROKE: NO. Assessment & Plan - Diagnosis (1) Pneumonia Qualifiers: Pneumonia type: due to unspecified organism Laterality: unspecified laterality Lung location: unspecified part of lung Qualified Code(s): J18.9 - Pneumonia, unspecified organism Is this a current diagnosis for this admission?: Yes Plan: She has a history of recurrent pneumonia, MRSA pneumonia, gram-negative pneumonia, multiple hospital admission for same (2) Lytic bone lesion of right femur Is this a current diagnosis for this admission?: Yes Plan: The differential diagnosis include multiple myeloma, chronic lymphocytic leukemia, will request serum protein electrophoresis, urine protein electrophoresis, serum light chain concentration/Bence-Kaminski protein in the urine.Patient has wants to be DNR statusShe does not want mechanical ventilation, chest compression (3) Chronic lymphocytic leukemia Is this a current diagnosis for this admission?: Yes
[2018-07-31 20:54] LABS: LIPASE 36.6 U/L (23-300); PHOSPHORUS 4.6 mg/dL (2.5-4.5)
[2018-07-31 21:16] LABS: FREE T4 (FREE THYROXINE) 1.34 ng/dL (0.78-2.19)
[2018-07-31 21:30] LABS: THYROID STIMULATING HORMONE 0.74 uIU/mL (0.47-4.68)
[2018-07-31 21:40] LABS: INTERNATIONAL RATION (INR) 1.06; PROTHROMBIN TIME 14.3 SEC (11.4-15.4)
[2018-07-31 21:41] LABS: PARTIAL THROMBOPLASTIN TIME 29.5 SEC (23.5-35.8)
--- NOTE | 2018-07-31 21:42 | RADIOLOGY REPORT (SQ) ---
EXAM DESCRIPTION: CT CHEST WITHOUT IV CONTRAST COMPLETED DATE/TME: 07/31/2018 00:00 CLINICAL HISTORY: 72 years, Female, pneumonia COMPARISON: CT chest 06/19/2018 TECHNIQUE: Axial images of the chest were performed without the use of intravenous contrast, with sagittal and coronal reformatted images. Images stored on PACS. All CT scanners at this facility use dose modulation, iterative reconstruction, and/or weight based dosing when appropriate to reduce radiation dose to as low as reasonably achievable (ALARA). [facility]: Dose Right [facility]: CareDose [facility]: Dose Right [facility]: Teradose 4D [facility]: PROnoise LIMITATIONS: None. FINDINGS: There are areas of consolidation/atelectasis at the lung bases bilaterally. There is bronchiectasis within the regions of consolidation/atelectasis. Similar findings were present on the prior CT scan. No evidence of mediastinal or hilar adenopathy. The distal trachea and mainstem bronchi are somewhat flattened, raising the possibility of tracheobronchomalacia. No evidence of pneumothorax or pleural effusion. IMPRESSION: Bibasilar consolidation/atelectasis and bronchiectasis. These may represent chronic changes, however, acute pneumonia cannot be excluded. Possible tracheobronchomalacia. TECHNICAL DOCUMENTATION: Quality ID # [id number]: Final reports with documentation of one or more dose reduction techniques (e.g., Automated exposure control, adjustment of the mA and/or kV according to patient size, use of iterative reconstruction technique) copyright 2010 [employer]- All Rights Reserved
[2018-07-31 22:10] LABS: CREATINE KINASE MB < 0.22 ng/mL (<4.55); TROPONIN I < 0.012 ng/mL
--- NOTE | 2018-08-01 00:24 | EKG REPORT ---
SEVERITY:- OTHERWISE NORMAL ECG - SINUS TACHYCARDIA : Confirmed by: Angie Hannon MD 01-Aug-2018 00:23:35
[2018-08-01 00:43] LABS: APPEARANCE,URINE CLEAR; BILIRUBIN,URINE NEGATIVE (NEGATIVE); COLOR,URINE YELLOW; GLUCOSE, URINE NEGATIVE (NEGATIVE); KETONES,URINE NEGATIVE (NEGATIVE); LEUKOCYTE ESTERASE,URINE NEGATIVE (NEGATIVE); NITRITE,URINE NEGATIVE (NEGATIVE); PROTEIN,URINE NEGATIVE (NEGATIVE); UROBILINOGEN,URINE NEGATIVE mg/dL (<2.0)
[2018-08-01 01:06] LABS: URINE AMPHETAMINES SCREEN NEGATIVE; URINE BARBITURATES SCREEN NEGATIVE; URINE BENZODIAZEPINES SCREEN NEGATIVE; URINE COCAINE SCREEN NEGATIVE; URINE METHADONE SCREEN NEGATIVE; URINE PHENCYCLIDINE SCREEN NEGATIVE
[2018-08-01 01:09] LABS: URINE MARIJUANA (THC) SCREEN UNCONFIRMED POSITIVE
[2018-08-01 02:38] LABS: CREATINE KINASE MB < 0.22 ng/mL (<4.55); TROPONIN I < 0.012 ng/mL
[2018-08-01 06:33] LABS: HEMATOCRIT 31.1 % (36.0-47.0); HEMOGLOBIN 10.4 g/dL (12.0-15.5); MEAN CORPUSCULAR HEMOGLOBIN 32.3 pg (27.0-33.4); MEAN CORPUSCULAR HGB CONC 33.3 g/dL (32.0-36.0); MEAN CORPUSCULAR VOLUME 97 fl (80-97); RED BLOOD COUNT 3.21 10^6/uL (3.72-5.28); RED CELL DISTRIBUTION WIDTH 24.8 % (11.5-14.0); WHITE BLOOD COUNT 19.9 10^3/uL (4.0-10.5)
[2018-08-01 06:37] LABS: ALBUMIN 2.8 g/dL (3.5-5.0); ALKALINE PHOSPHATASE 87 U/L (38-126); ANION GAP 7 (5-19); ASPARTATE AMINO TRANSFERASE 31 U/L (14-36); BILIRUBIN,DIRECT 0.4 mg/dL (0.0-0.4); BILIRUBIN,TOTAL 0.8 mg/dL (0.2-1.3); BLOOD UREA NITROGEN 46 mg/dL (7-20); CALCIUM 8.7 mg/dL (8.4-10.2); CARBON DIOXIDE 34 mmol/L (22-30); CHLORIDE 106 mmol/L (98-107); CHOLESTEROL 145.42 mg/dL (0-200); SODIUM 146.5 mmol/L (137-145); TOTAL PROTEIN 5.5 g/dL (6.3-8.2); TRIGLYCERIDES 82 mg/dL (<150)
[2018-08-01 06:41] LABS: CREATINE KINASE MB < 0.22 ng/mL (<4.55); TROPONIN I < 0.012 ng/mL
[2018-08-01 06:55] LABS: ALANINE AMINOTRANSFERASE 28 U/L (9-52); GLUCOSE 83 mg/dL (75-110); POTASSIUM 3.4 mmol/L (3.6-5.0)
[2018-08-01 07:06] LABS: DIRECT LDL 81 mg/dL (<100)
[2018-08-01 07:07] LABS: CREATINE KINASE < 20 U/L (30-135)
[2018-08-01 07:12] LABS: ABSOLUTE LYMPHOCYTES# (MANUAL) 14.1 10^3/uL (0.5-4.7); ABSOLUTE NEUTROPHILS# (MANUAL) 4.8 10^3/uL (1.7-8.2); BAND NEUTROPHILS % (MANUAL) 6 % (3-5); BASOPHILS % (MANUAL) 1 % (0-2); EOSINOPHILS % (MANUAL) 4 % (0-6); LYMPHOCYTES % (MANUAL) 62 % (13-45); MONOCYTES % (MANUAL) 0 % (3-13); NUCLEATED RED BLOOD CELLS 1 /100 WBC (0); SEGMENTED NEUTROPHILS % (MAN) 18 % (42-78); TOTAL CELLS COUNTED 100
[2018-08-01 07:16] LABS: ANISOCYTOSIS 3+; POIKILOCYTOSIS 1+; POLYCHROMASIA 1+; SCHISTOCYTES SLIGHT; SMUDGE CELLS PRESENT; TARGET CELLS 1+; TEAR DROP CELLS SLIGHT; TOXIC GRANULATION 2+
[2018-08-01 07:17] LABS: HOWELL-JOLLY BODIES PRESENT; PAPPENHEIMER BODIES PRESENT
[2018-08-01 07:19] LABS: PLATELET COUNT 46 10^3/uL (150-450)
[2018-08-01 07:20] LABS: PLATELET COMMENT DECREASED
--- NOTE | 2018-08-01 11:56 | RADIOLOGY REPORT (SQ) ---
EXAM DESCRIPTION: BONE SURVEY COMPLETE COMPLETED DATE/TIME: 08/01/2018 10:44 am REASON FOR STUDY: METASTATIC DISEASE COMPARISON: CT chest 07/31/2018, 04/03/2018 Abdominal films 05/17/2018 PET-CT 02/12/2018 TECHNIQUE: Images of the axial and proximal appendicular skeleton are obtained, along with lateral s kull and frontal chest films. LIMITATIONS: None. FINDINGS: AP CHEST: Bones are osteopenic. No fracture. Bibasilar consolidation atelectasis versus pneumonia. No cardiomegaly or pleural effusions. No pneumothorax. Right permanent central line tip superior vena cava. LATERAL SKULL: Multiple biparietal lytic lesions are present worrisome for metastatic disease AP BOTH HUMERI: No worrisome bone lesions. TWO-VIEW LUMBAR SPINE: 50% compression deformity at L1 similar compared to CT chest 07/21/2018, 018. L3 central upper endplate depression without overall loss of height similar compared to abdomin al film 05/17/2018 TWO-VIEW THORACIC SPINE: No worrisome bone lesions. AP PELVIS: No worrisome bone lesions. AP BOTH FEMURS: Diffuse subtle less than 5 mm distal right femoral diaphysis/ metaphysis lytic lesion s worrisome for metastatic disease. Left femur intact. OTHER: No other significant finding. IMPRESSION: Small lytic lesions in the distal right femur metaphysis and biparietal skull worrisome for myeloma or metastatic disease TECHNICAL DOCUMENTATION: JOB ID: [id number] [employer]- All Rights Reserved Reading location - IP/workstation name: [email or web address]
[2018-08-01 13:25] LABS: PATH REVIEW PATHOLOGIST REVIEWED
[2018-08-01 17:07] LABS: UR PRO/CREAT RATIO RESULT 0.4 mg/mg (0.0-0.2); URINE CREATININE 70.2 mg/dL (15-278)
[2018-08-01] MEDS: CEFTRIAXONE 1 GM/D5W RTU 1 GM/50 ML RTUPB IV SCH (17:26)
--- NOTE | 2018-08-01 18:37 | PDOC PROGRESS REPORT ---
Subjective Progress Note for:: 08/01/18 Subjective:: Patient was seen by the bedside I discussed the bone survey findings with her she has lytic lesions which could represent multiple myeloma, a new malignancy or it could be metastasis from CLL, most likely is metastasis from CLL Reason For Visit: PNEUMONIA, CLL, H/O MRSA PNEUMONIA, MULTIPLE Physical Exam Vital Signs: Temp Pulse Resp BP Pulse Ox 97.5 F 91 16 145/75 H 99 08/01/18 15:22 08/01/18 16:43 08/01/18 16:43 08/01/18 15:22 08/01/18 16:43 Intake & Output 07/31/18 08/01/18 08/02/18 06:59 06:59 06:59 Intake Total 50 942 Balance 50 942 Weight 52.7 kg General appearance: PRESENT: no acute distress Eye exam: PRESENT: PERRLA Respiratory exam: PRESENT: clear to auscultation sendy Cardiovascular exam: PRESENT: +S1, +S2 GI/Abdominal exam: PRESENT: soft Neurological exam: PRESENT: alert Results Laboratory Results: 08/01/18 06:00 08/01/18 06:00 07/31/18 07/31/18 07/31/18 16:00 16:00 21:25 WBC RBC Hgb Hct MCV MCH MCHC RDW Plt Count Seg Neutrophils % Lymphocytes % Monocytes % Eosinophils % Basophils % Absolute Neutrophils Absolute Lymphocytes Absolute Monocytes Absolute Eosinophils Absolute Basophils Sodium Potassium Chloride Carbon Dioxide Anion Gap BUN Creatinine Est GFR ( Amer) Est GFR (Non-Af Amer) Glucose Calcium Phosphorus 4.6 H Magnesium 1.6 Total Bilirubin AST ALT Alkaline Phosphatase Ammonia 22.1 Total Protein Albumin Triglycerides Cholesterol LDL Cholesterol Direct VLDL Cholesterol HDL Cholesterol Amylase 47 Lipase 36.6 TSH 0.74 Free T4 1.34 Urine Color Urine Appearance Urine pH Ur Specific Lander Urine Protein Urine Glucose (UA) Urine Ketones Urine Blood Urine Nitrite Ur Leukocyte Esterase Urine WBC (Auto) Urine RBC (Auto) 08/01/18 08/01/18 08/01/18 00:15 06:00 06:00 WBC 19.9 H RBC 3.21 L Hgb 10.4 L Hct 31.1 L MCV 97 MCH 32.3 MCHC 33.3 RDW 24.8 H Plt Count 46 L Seg Neutrophils % Not Reportable Lymphocytes % Not Reportable Monocytes % Not Reportable Eosinophils % Not Reportable Basophils % Not Reportable Absolute Neutrophils Not Reportable Absolute Lymphocytes Not Reportable Absolute Monocytes Not Reportable Absolute Eosinophils Not Reportable Absolute Basophils Not Reportable Sodium 146.5 H Potassium 3.4 L Chloride 106 Carbon Dioxide 34 H Anion Gap 7 BUN 46 H Creatinine 2.18 H Est GFR ( Amer) 27 L Est GFR (Non-Af Amer) 22 L Glucose 83 Calcium 8.7 Phosphorus Magnesium Total Bilirubin 0.8 AST 31 ALT 28 Alkaline Phosphatase 87 Ammonia Total Protein 5.5 L Albumin 2.8 L Triglycerides 82 Cholesterol 145.42 LDL Cholesterol Direct 81 VLDL Cholesterol 16.0 HDL Cholesterol 30 L Amylase Lipase TSH Free T4 Urine Color YELLOW Urine Appearance CLEAR Urine pH 5.0 Ur Specific Lander 1.010 Urine Protein NEGATIVE Urine Glucose (UA) NEGATIVE Urine Ketones NEGATIVE Urine Blood NEGATIVE Urine Nitrite NEGATIVE Ur Leukocyte Esterase NEGATIVE Urine WBC (Auto) 1 Urine RBC (Auto) 0 07/31/18 07/31/18 07/31/18 16:01 16:01 21:25 Creatine Kinase < 20 L < 20 L CK-MB (CK-2) < 0.22 Troponin I < 0.012 NT-Pro-B Natriuret Pep 5000 H 07/31/18 08/01/18 08/01/18 21:25 01:50 01:50 Creatine Kinase < 20 L CK-MB (CK-2) < 0.22 < 0.22 Troponin I < 0.012 < 0.012 NT-Pro-B Natriuret Pep 08/01/18 08/01/18 06:00 06:00 Creatine Kinase < 20 L CK-MB (CK-2) < 0.22 Troponin I < 0.012 NT-Pro-B Natriuret Pep Impressions: Chest CT 07/31/18 00:00 IMPRESSION: Bibasilar consolidation/atelectasis and bronchiectasis. These may represent chronic changes, however, acute pneumonia cannot be excluded. Possible tracheobronchomalacia. TECHNICAL DOCUMENTATION: Quality ID # 436: Final reports with documentation of one or more dose reduction techniques (e.g., Automated exposure control, adjustment of the mA and/or kV according to patient size, use of iterative reconstruction technique) copyright 2011 [employer]- All Rights Reserved Chest X-Ray 07/31/18 15:02 IMPRESSION: Unchanged bibasilar scarring or atelectasis. No new airspace opacity. Head CT 07/31/18 17:23 IMPRESSION: 1. Mild chronic microvascular ischemia with no acute intracranial imaging findings. 2. There are multiple lytic lesions in the calvarium that are new. Metastases versus an infiltrative process. 3. Extensive sinus disease. EVIDENCE OF ACUTE STROKE: NO. Skeletal Survey 08/01/18 00:00 IMPRESSION: Small lytic lesions in the distal right femur metaphysis and biparietal skull worrisome for myeloma or metastatic disease Assessment & Plan - Diagnosis (1) Pneumonia Qualifiers: Pneumonia type: due to unspecified organism Laterality: unspecified laterality Lung location: unspecified part of lung Qualified Code(s): J18.9 - Pneumonia, unspecified organism Is this a current diagnosis for this admission?: Yes Plan: Continue IV antibiotic (2) Lytic bone lesion of right femur Is this a current diagnosis for this admission?: Yes Plan: The differential diagnosis include multiple myeloma, chronic lymphocytic leukemia, will request serum protein electrophoresis, urine protein elect rophoresis, serum light chain concentration/Bence-Kaminski protein in the urine.Patient has wants to be DNR statusShe does not want mechanical ventilation, chest compression (3) Chronic lymphocytic leukemia Is this a current diagnosis for this admission?: Yes (4) DNR (do not resuscitate) Is this a current diagnosis for this admission?: Yes (5) CKD (chronic kidney disease) stage 4, GFR 15-29 ml/min Is this a current diagnosis for this admission?: Yes
[2018-08-01] MEDS ORDERED: ALBUTEROL SULFATE HFA (90 MCG/PUFF) 200 PUFF/8.5 GM MDI IH PRN (20:00)
[2018-08-01] MEDS: AMLODIPINE BESYLATE 2.5 MG TABLET PO SCH (20:25)
[2018-08-01] MEDS: MONTELUKAST SODIUM 10 MG TABLET PO SCH (20:25)
[2018-08-01] MEDS: IPRATROPIUM/ALBUTEROL 0.5-2.5 MG/3 ML AMPUL NEB SCH (21:09)
[2018-08-01] MEDS: METOPROLOL TARTRATE 25 MG TABLET PO SCH (21:26)
[2018-08-01] MEDS: LEVETIRACETAM 500 MG TABLET PO SCH (21:26)
[2018-08-01] MEDS: DRONABINOL 2.5 MG CAPSULE PO SCH (21:27)
[2018-08-01] MEDS: FAMOTIDINE 20 MG TABLET PO SCH (21:27)
[2018-08-01] MEDS: BUDESONIDE/FORMOTEROL 160-4.5 MCG 60 PUFF/6 GM MDI IH SCH (21:29)
[2018-08-01] MEDS: FLUTICASONE NASAL SPRAY 50 MCG/SPRY 120 SPRAY/16 GM NASL SCH (21:30)
[2018-08-01] MEDS ORDERED: VANCOMYCIN HCL 0 MG in DEXTROSE 5%-WATER 250 ML IV NR (22:45)
[2018-08-01] MEDS ORDERED: VANCOMYCIN HCL INJ 1000 MG VIAL IV PRN (22:45)
[2018-08-01] MEDS ORDERED: VANCOMYCIN HCL 1,000 MG in DEXTROSE 5%-WATER 250 ML IV ONE (23:00)
[2018-08-01] MEDS ORDERED: VANCOMYCIN HCL INJ 1000 MG VIAL ONE (23:59)
[2018-08-02] MEDS: IPRATROPIUM/ALBUTEROL 0.5-2.5 MG/3 ML AMPUL NEB SCH ×4 (02:35→19:40)
[2018-08-02 06:05] LABS: HEMATOCRIT 30.1 % (36.0-47.0); HEMOGLOBIN 10.1 g/dL (12.0-15.5); MEAN CORPUSCULAR HEMOGLOBIN 32.3 pg (27.0-33.4); MEAN CORPUSCULAR HGB CONC 33.4 g/dL (32.0-36.0); MEAN CORPUSCULAR VOLUME 97 fl (80-97); RED BLOOD COUNT 3.12 10^6/uL (3.72-5.28); RED CELL DISTRIBUTION WIDTH 24.2 % (11.5-14.0); WHITE BLOOD COUNT 16.9 10^3/uL (4.0-10.5)
[2018-08-02 06:08] LABS: PLATELET COUNT 45 10^3/uL (150-450)
[2018-08-02 06:29] LABS: ABSOLUTE LYMPHOCYTES# (MANUAL) 11.8 10^3/uL (0.5-4.7); ABSOLUTE NEUTROPHILS# (MANUAL) 3.7 10^3/uL (1.7-8.2); BAND NEUTROPHILS % (MANUAL) 3 % (3-5); BASOPHILS % (MANUAL) 0 % (0-2); EOSINOPHILS % (MANUAL) 2 % (0-6); LYMPHOCYTES % (MANUAL) 66 % (13-45); MONOCYTES % (MANUAL) 6 % (3-13); SEGMENTED NEUTROPHILS % (MAN) 19 % (42-78); TOTAL CELLS COUNTED 100
[2018-08-02 06:32] LABS: ANISOCYTOSIS 3+; PLATELET COMMENT DECREASED; SMUDGE CELLS PRESENT; TOXIC GRANULATION SLIGHT
[2018-08-02] MEDS: LEVETIRACETAM 500 MG TABLET PO SCH ×2 (09:39→21:56)
[2018-08-02] MEDS: CALCITRIOL 0.25 MCG CAPSULE PO SCH (09:39)
[2018-08-02] MEDS: DRONABINOL 2.5 MG CAPSULE PO SCH ×2 (09:40→21:56)
[2018-08-02] MEDS: MONTELUKAST SODIUM 10 MG TABLET PO SCH (09:40)
[2018-08-02] MEDS: METOPROLOL TARTRATE 25 MG TABLET PO SCH ×2 (09:40→21:56)
[2018-08-02] MEDS: FLUTICASONE NASAL SPRAY 50 MCG/SPRY 120 SPRAY/16 GM NASL SCH ×2 (09:40→21:57)
[2018-08-02] MEDS: CHOLECALCIFEROL (D3) 400 UNIT TABLET PO SCH (09:40)
[2018-08-02] MEDS: BUDESONIDE/FORMOTEROL 160-4.5 MCG 60 PUFF/6 GM MDI IH SCH ×2 (09:40→21:57)
[2018-08-02] MEDS: AMLODIPINE BESYLATE 2.5 MG TABLET PO SCH (09:54)
--- NOTE | 2018-08-02 12:32 | RADIOLOGY REPORT (SQ) ---
EXAM DESCRIPTION: NM WHOLE BODY BONE SCAN COMPLETED DATE/TIME: 08/02/2018 11:58 am REASON FOR STUDY: metastatic disease COMPARISON: Bone scan 09/03/2013 CT chest 07/31/2018, other imaging studies. RADIONUCLIDE AND DOSE: 20 millicuries Tc99m HDP. The route of agent administration: Intravenous. ADDITIONAL DRUGS AND DOSES: None. TECHNIQUE: Routine delayed images at 3 hours post radionuclide injection acquired of the bony skelet on including anterior and posterior whole-body projections and additional focused images as needed. LIMITATIONS: None. FINDINGS: BONES: There are small areas of uptake in the anterior left 8th rib 4th and 5th ribs, poss ibly the 3rd rib. There is focal uptake in the anterior right 5th rib. Also incidentally noted is f airly intense uptake in the costochondral junctions bilaterally. KIDNEYS: Symmetric excretion without obstruction. OTHER: No other significant finding. IMPRESSION: There appear to be metastatic lesions in some anterior ribs. There is also intense upta ke in the costochondral junctions. Is there history of trauma to the chest? COMMENT: Quality measure 147: Current bone scan is compared with any available plain radiographs, p rior bone scans, and CT/MRI. TECHNICAL DOCUMENTATION: JOB ID: [id number] [employer]- All Rights Reserved Reading location - IP/workstation name: [email or web address]
[2018-08-02] MEDS: BENZONATATE 100 MG CAPSULE PO PRN (16:01)
[2018-08-02] MEDS ORDERED: ACETAMINOPHEN 325 MG TABLET ONE (16:12)
[2018-08-02] MEDS: CEFTRIAXONE 1 GM/D5W RTU 1 GM/50 ML RTUPB IV SCH (17:46)
--- NOTE | 2018-08-02 20:55 | PDOC PROGRESS REPORT ---
Subjective Progress Note for:: 08/02/18 Subjective:: I had a long discussion with the patient today about her diagnosis she has lytic bone disease most likely metastatic disease, she is being evaluated for multiple myeloma, it is not common for CLL to metastasize to the bone but it is not unusual ,serum protein electrophoresis, urine protein electropheresis result is pending Reason For Visit: PNEUMONIA, CLL, H/O MRSA PNEUMONIA, MULTIPLE Physical Exam Vital Signs: Temp Pulse Resp BP Pulse Ox 98.3 F 94 15 168/90 H 99 08/02/18 19:24 08/02/18 19:40 08/02/18 19:40 08/02/18 19:24 08/02/18 19:40 Intake & Output 08/01/18 08/02/18 08/03/18 06:59 06:59 06:59 Intake Total 50 1422 627 Output Total 300 Balance 50 1422 327 Weight 52.7 kg 51.4 kg General appearance: PRESENT: no acute distress Eye exam: PRESENT: PERRLA Respiratory exam: PRESENT: clear to auscultation sendy Cardiovascular exam: PRESENT: +S1, +S2 GI/Abdominal exam: PRESENT: soft Neurological exam: PRESENT: alert Results Laboratory Results: 08/02/18 05:50 08/01/18 06:00 08/02/18 05:50 WBC 16.9 H RBC 3.12 L Hgb 10.1 L Hct 30.1 L MCV 97 MCH 32.3 MCHC 33.4 RDW 24.2 H Plt Count 45 L Seg Neutrophils % Not Reportable Lymphocytes % Not Reportable Monocytes % Not Reportable Eosinophils % Not Reportable Basophils % Not Reportable Absolute Neutrophils Not Reportable Absolute Lymphocytes Not Reportable Absolute Monocytes Not Reportable Absolute Eosinophils Not Reportable Absolute Basophils Not Reportable 07/31/18 07/31/18 07/31/18 16:01 16:01 21:25 Creatine Kinase < 20 L < 20 L CK-MB (CK-2) < 0.22 Troponin I < 0.012 NT-Pro-B Natriuret Pep 5000 H 07/31/18 08/01/18 08/01/18 21:25 01:50 01:50 Creatine Kinase < 20 L CK-MB (CK-2) < 0.22 < 0.22 Troponin I < 0.012 < 0.012 NT-Pro-B Natriuret Pep 08/01/18 08/01/18 06:00 06:00 Creatine Kinase < 20 L CK-MB (CK-2) < 0.22 Troponin I < 0.012 NT-Pro-B Natriuret Pep Impressions: Chest CT 07/31/18 00:00 IMPRESSION: Bibasilar consolidation/atelectasis and bronchiectasis. These may represent chronic changes, however, acute pneumonia cannot be excluded. Possible tracheobronchomalacia. TECHNICAL DOCUMENTATION: Quality ID # 436: Final reports with documentation of one or more dose reduction techniques (e.g., Automated exposure control, adjustment of the mA and/or kV according to patient size, use of iterative reconstruction technique) copyright 2011 [employer]- All Rights Reserved Chest X-Ray 07/31/18 15:02 IMPRESSION: Unchanged bibasilar scarring or atelectasis. No new airspace opacity. Head CT 07/31/18 17:23 IMPRESSION: 1. Mild chronic microvascular ischemia with no acute intracranial imaging findings. 2. There are multiple lytic lesions in the calvarium that are new. Metastases versus an infiltrative process. 3. Extensive sinus disease. EVIDENCE OF ACUTE STROKE: NO. Skeletal Survey 08/01/18 00:00 IMPRESSION: Small lytic lesions in the distal right femur metaphysis and biparietal skull worrisome for myeloma or metastatic disease Body Scan Nuclear Medicine 08/02/18 00:00 IMPRESSION: There appear to be metastatic lesions in some anterior ribs. There is also intense uptake in the costochondral junctions. Is there history of trauma to the chest? Assessment & Plan - Diagnosis (1) Pneumonia Qualifiers: Pneumonia type: due to unspecified organism Laterality: unspecified laterality Lung location: unspecified part of lung Qualified Code(s): J18.9 - Pneumonia, unspecified organism Is this a current diagnosis for this admission?: Yes Plan: Continue IV antibiotic (2) Lytic bone lesion of right femur Is this a current diagnosis for this admission?: Yes Plan: The differential diagnosis include multiple myeloma, chronic lymphocytic leukemia, will request serum protein electrophoresis, urine protein electrophoresis, serum light chain concentration/Bence-Kaminski protein in the urine.Patient has wants to be DNR statusShe does not want mechanical ventilation, chest compression (3) Chronic lymphocytic leukemia Is this a current diagnosis for this admission?: Yes (4) DNR (do not resuscitate) Is this a current diagnosis for this admission?: Yes (5) CKD (chronic kidney disease) stage 4, GFR 15-29 ml/min Is this a current diagnosis for this admission?: Yes
[2018-08-02] MEDS: FAMOTIDINE 20 MG TABLET PO SCH (21:56)
[2018-08-03] MEDS: IPRATROPIUM/ALBUTEROL 0.5-2.5 MG/3 ML AMPUL NEB SCH ×4 (01:56→19:55)
[2018-08-03 05:07] LABS: HEMATOCRIT 29.4 % (36.0-47.0); HEMOGLOBIN 9.8 g/dL (12.0-15.5); MEAN CORPUSCULAR HEMOGLOBIN 32.3 pg (27.0-33.4); MEAN CORPUSCULAR HGB CONC 33.4 g/dL (32.0-36.0); MEAN CORPUSCULAR VOLUME 97 fl (80-97); RED BLOOD COUNT 3.04 10^6/uL (3.72-5.28)
[2018-08-03 05:23] LABS: PLATELET COUNT 51 10^3/uL (150-450)
[2018-08-03 05:42] LABS: ABSOLUTE LYMPHOCYTES# (MANUAL) 9.5 10^3/uL (0.5-4.7); ABSOLUTE MONOCYTES # (MANUAL) 2.6 10^3/uL (0.1-1.4); ANISOCYTOSIS 3+; BASOPHILS % (MANUAL) 0 % (0-2); EOSINOPHILS % (MANUAL) 0 % (0-6); LYMPHOCYTES % (MANUAL) 63 % (13-45); MONOCYTES % (MANUAL) 17 % (3-13); PLATELET COMMENT ADEQUATE; POLYCHROMASIA 2+; SEGMENTED NEUTROPHILS % (MAN) 20 % (42-78); TOTAL CELLS COUNTED 100
[2018-08-03] MEDS: DRONABINOL 2.5 MG CAPSULE PO SCH ×2 (09:16→21:30)
[2018-08-03] MEDS: METOPROLOL TARTRATE 25 MG TABLET PO SCH ×2 (09:16→21:30)
[2018-08-03] MEDS: AMLODIPINE BESYLATE 2.5 MG TABLET PO SCH (09:17)
[2018-08-03] MEDS: LEVETIRACETAM 500 MG TABLET PO SCH ×2 (09:17→21:30)
[2018-08-03] MEDS: FLUTICASONE NASAL SPRAY 50 MCG/SPRY 120 SPRAY/16 GM NASL SCH ×2 (09:17→21:31)
[2018-08-03] MEDS: MONTELUKAST SODIUM 10 MG TABLET PO SCH (09:18)
[2018-08-03] MEDS: CALCITRIOL 0.25 MCG CAPSULE PO SCH (09:18)
[2018-08-03] MEDS: CHOLECALCIFEROL (D3) 400 UNIT TABLET PO SCH (09:18)
[2018-08-03] MEDS: BUDESONIDE/FORMOTEROL 160-4.5 MCG 60 PUFF/6 GM MDI IH SCH ×2 (09:18→21:31)
--- NOTE | 2018-08-03 14:41 | PDOC PROGRESS REPORT ---
Subjective Progress Note for:: 08/03/18 Subjective:: OOB in chair with family at bedside. Complain of bouts of coughing and sinus congestion. No fever or chills. No sinus pain or discomfort. No chest pain, nausea, vomiting or abdominal pain. Reason For Visit: PNEUMONIA, CLL, H/O MRSA PNEUMONIA, MULTIPLE Physical Exam Vital Signs: Temp Pulse Resp BP Pulse Ox 97.8 F 93 16 182/89 H 94 08/03/18 11:29 08/03/18 13:56 08/03/18 13:56 08/03/18 11:29 08/03/18 13:56 Intake & Output 08/02/18 08/03/18 08/04/18 06:59 06:59 06:59 Intake Total 1422 939 Output Total 400 Balance 1422 539 Weight 51.4 kg 50.8 kg General appearance: PRESENT: no acute distress Head exam: PRESENT: atraumatic, normocephalic Eye exam: PRESENT: conjunctiva pink, EOMI, PERRLA. ABSENT: scleral icterus Ear exam: PRESENT: normal external ear exam Mouth exam: PRESENT: moist Respiratory exam: PRESENT: clear to auscultation sendy Cardiovascular exam: PRESENT: RRR. ABSENT: diastolic murmur, rubs, systolic murmur Vascular exam: PRESENT: normal capillary refill. ABSENT: pallor GI/Abdominal exam: PRESENT: normal bowel sounds, soft. ABSENT: distended, guarding, mass, organolmegaly, rebound, tenderness Extremities exam: ABSENT: pedal edema Neurological exam: PRESENT: alert, awake, oriented to person, oriented to place, oriented to time, oriented to situation, CN II-XII grossly intact. ABSENT: motor sensory deficit Psychiatric exam: PRESENT: appropriate affect, normal mood. ABSENT: homicidal ideation, suicidal ideation Skin exam: PRESENT: dry, warm Results Laboratory Results: 08/03/18 04:45 08/01/18 06:00 08/03/18 04:45 WBC 15.0 H RBC 3.04 L Hgb 9.8 L Hct 29.4 L MCV 97 MCH 32.3 MCHC 33.4 RDW 24.0 H Plt Count 51 L Seg Neutrophils % Not Reportable Lymphocytes % Not Reportable Monocytes % Not Reportable Eosinophils % Not Reportable Basophils % Not Reportable Absolute Neutrophils Not Reportable Absolute Lymphocytes Not Reportable Absolute Monocytes Not Reportable Absolute Eosinophils Not Reportable Absolute Basophils Not Reportable 08/01/18 00:15 Clean Catch Midstream Urine Culture - Final Pseudomonas Aeruginosa 07/31/18 07/31/18 07/31/18 16:01 16:01 21:25 Creatine Kinase < 20 L < 20 L CK-MB (CK-2) < 0.22 Troponin I < 0.012 NT-Pro-B Natriuret Pep 5000 H 07/31/18 08/01/18 08/01/18 21:25 01:50 01:50 Creatine Kinase < 20 L CK-MB (CK-2) < 0.22 < 0.22 Troponin I < 0.012 < 0.012 NT-Pro-B Natriuret Pep 08/01/18 08/01/18 06:00 06:00 Creatine Kinase < 20 L CK-MB (CK-2) < 0.22 Troponin I < 0.012 NT-Pro-B Natriuret Pep Impressions: Chest CT 07/31/18 00:00 IMPRESSION: Bibasilar consolidation/atelectasis and bronchiectasis. These may represent chronic changes, however, acute pneumonia cannot be excluded. Possible tracheobronchomalacia. TECHNICAL DOCUMENTATION: Quality ID # 436: Final reports with documentation of one or more dose reduction techniques (e.g., Automated exposure control, adjustment of the mA and/or kV according to patient size, use of iterative reconstruction technique) copyright 2011 [email or web address]- All Rights Reserved Chest X-Ray 07/31/18 15:02 IMPRESSION: Unchanged bibasilar scarring or atelectasis. No new airspace opacity. Head CT 07/31/18 17:23 IMPRESSION: 1. Mild chronic microvascular ischemia with no acute intracranial imaging findings. 2. There are multiple lytic lesions in the calvarium that are new. Metastases versus an infiltrative process. 3. Extensive sinus disease. EVIDENCE OF ACUTE STROKE: NO. Skeletal Survey 08/01/18 00:00 IMPRESSION: Small lytic lesions in the distal right femur metaphysis and biparietal skull worrisome for myeloma or metastatic disease Body Scan Nuclear Medicine 08/02/18 00:00 IMPRESSION: There appear to be metastatic lesions in some anterior ribs. There is also intense uptake in the costochondral junctions. Is there history of trauma to the chest? Assessment & Plan - Diagnosis (1) Pneumonia Qualifiers: Pneumonia type: due to unspecified organism Laterality: bilateral Lung location: unspecified part of lung Qualified Code(s): J18.9 - Pneumonia, unspecified organism Is this a current diagnosis for this admission?: Yes Plan: Continue IV Vancomycin and Ceftriaxone coverage. Monitor CBC indices. (2) Pseudomonas urinary tract infection Is this a current diagnosis for this admission?: Yes Plan: Continue IV Ceftriaxone coverage. (3) CLL (chronic lymphocytic leukemia) Is this a current diagnosis for this admission?: Yes Plan: Continue supportive care at this time. Patient remain on DNR status. (4) Lytic bone lesion of right femur Is this a current diagnosis for this admission?: Yes Plan: Follow up on SPEP and UPEP rsults. - Time Time Spent with patient: 25-34 minutes Medications reviewed and adjusted accordingly: Yes Anticipated discharge: Home with Homehealth Within: Other - Inpatient Certification Based on my medical assessment, after consideration of the patient's comorbidities, presenting symptoms, or acuity I expect that the services needed warrant INPATIENT care.: Yes I certify that my determination is in accordance with my understanding of Medicare's requirements for reasonable and necessary INPATIENT services [42 CFR 412.3e].: Yes Medical Necessity: Significant Comorbidiites Make Outpatient Treatment Too [place]is [place], Need Close Monitoring Due to Risk of Patient Decompensation, Need For IV Fluids, Need For Continuous Telemetry Monitoring, Need for IV Antibiotics, Risk of Complication if Not Cared For in Hospital, Risk of Diagnosis Which Will Require Inpatient Eval/Care/Monitoring Post Hospital Care: D/C Allergy Nurse Documentation - Plan Summary Plan Summary: Continue current medication management. Follow up on pending lab results.
[2018-08-03] MEDS: BENZONATATE 100 MG CAPSULE PO PRN (16:10)
[2018-08-03] MEDS: ALBUTEROL SULFATE HFA (90 MCG/PUFF) 200 PUFF/8.5 GM MDI IH PRN (16:11)
[2018-08-03] MEDS: CEFTRIAXONE 1 GM/D5W RTU 1 GM/50 ML RTUPB IV SCH (17:19)
[2018-08-03] MEDS: FAMOTIDINE 20 MG TABLET PO SCH (21:30)
[2018-08-03] MEDS ORDERED: VANCOMYCIN HCL 750 MG in DEXTROSE 5%-WATER 250 ML IV SCH (22:00)
[2018-08-04] MEDS: IPRATROPIUM/ALBUTEROL 0.5-2.5 MG/3 ML AMPUL NEB SCH ×4 (02:37→19:40)
[2018-08-04] MEDS: FLUTICASONE NASAL SPRAY 50 MCG/SPRY 120 SPRAY/16 GM NASL SCH ×2 (09:16→21:40)
[2018-08-04] MEDS: METOPROLOL TARTRATE 25 MG TABLET PO SCH ×2 (09:17→21:39)
[2018-08-04] MEDS: AMLODIPINE BESYLATE 2.5 MG TABLET PO SCH (09:17)
[2018-08-04] MEDS: DRONABINOL 2.5 MG CAPSULE PO SCH ×2 (09:17→21:39)
[2018-08-04] MEDS: LEVETIRACETAM 500 MG TABLET PO SCH ×2 (09:17→21:39)
[2018-08-04] MEDS: CALCITRIOL 0.25 MCG CAPSULE PO SCH (09:17)
[2018-08-04] MEDS: MONTELUKAST SODIUM 10 MG TABLET PO SCH (09:17)
[2018-08-04] MEDS: BUDESONIDE/FORMOTEROL 160-4.5 MCG 60 PUFF/6 GM MDI IH SCH ×2 (09:17→21:39)
[2018-08-04] MEDS: CHOLECALCIFEROL (D3) 400 UNIT TABLET PO SCH (09:18)
[2018-08-04] MEDS ORDERED: AMLODIPINE BESYLATE 2.5 MG TABLET PO ONE (12:00)
--- NOTE | 2018-08-04 12:11 | PDOC PROGRESS REPORT ---
Subjective Progress Note for:: 08/04/18 Subjective:: There was concern about elevated blood pressure earlier this morning. No reported chest pain or more than baseline difficulty with breathing. Remain on supplemental oxygen via nasal cannula. No fever or chills.No nausea, vomiting or abdominal pain. Reason For Visit: PNEUMONIA, CLL, H/O MRSA PNEUMONIA, MULTIPLE Physical Exam Vital Signs: Temp Pulse Resp BP Pulse Ox 99.1 F 78 20 150/90 H 97 08/04/18 08:00 08/04/18 08:00 08/04/18 08:00 08/04/18 08:26 08/04/18 08:00 Intake & Output 08/03/18 08/04/18 08/05/18 06:59 06:59 06:59 Intake Total 939 1371 Output Total 400 450 Balance 539 921 Weight 50.8 kg 52.3 kg Physical Exam: General appearance: PRESENT: no acute distress Head exam: PRESENT: atraumatic, normocephalic Eye exam: PRESENT: conjunctiva pink, EOMI, PERRLA. ABSENT: pallor, scleral icterus Respiratory exam: PRESENT: clear to auscultation sendy Cardiovascular exam: PRESENT: RRR. ABSENT: diastolic murmur, rubs, systolic murmur GI/Abdominal exam: PRESENT: normal bowel sounds, soft. ABSENT: distended, guarding, mass, organomegaly, rebound, tenderness Extremities exam: ABSENT: pedal edema Neurological exam: PRESENT: alert, awake, oriented to person, oriented to place, oriented to time, oriented to situation, CN II-XII grossly intact. ABSENT: motor sensory deficit Psychiatric exam: PRESENT: appropriate affect, normal mood. ABSENT: homicidal ideation, suicidal ideation Skin exam: PRESENT: dry, warm Results Laboratory Results: 08/03/18 04:45 08/01/18 06:00 08/01/18 00:15 Clean Catch Midstream Urine Culture - Final Pseudomonas Aeruginosa 07/31/18 07/31/18 07/31/18 16:01 16:01 21:25 Creatine Kinase < 20 L < 20 L CK-MB (CK-2) < 0.22 Troponin I < 0.012 NT-Pro-B Natriuret Pep 5000 H 07/31/18 08/01/18 08/01/18 21:25 01:50 01:50 Creatine Kinase < 20 L CK-MB (CK-2) < 0.22 < 0.22 Troponin I < 0.012 < 0.012 NT-Pro-B Natriuret Pep 08/01/18 08/01/18 06:00 06:00 Creatine Kinase < 20 L CK-MB (CK-2) < 0.22 Troponin I < 0.012 NT-Pro-B Natriuret Pep Impressions: Chest CT 07/31/18 00:00 IMPRESSION: Bibasilar consolidation/atelectasis and bronchiectasis. These may represent chronic changes, however, acute pneumonia cannot be excluded. Possible tracheobronchomalacia. TECHNICAL DOCUMENTATION: Quality ID # 436: Final reports with documentation of one or more dose reduction techniques (e.g., Automated exposure control, adjustment of the mA and/or kV according to patient size, use of iterative reconstruction technique) copyright 2011 [email or web address]- All Rights Reserved Chest X-Ray 07/31/18 15:02 IMPRESSION: Unchanged bibasilar scarring or atelectasis. No new airspace opacity. Head CT 07/31/18 17:23 IMPRESSION: 1. Mild chronic microvascular ischemia with no acute intracranial imaging findings. 2. There are multiple lytic lesions in the calvarium that are new. Metastases versus an infiltrative process. 3. Extensive sinus disease. EVIDENCE OF ACUTE STROKE: NO. Skeletal Survey 08/01/18 00:00 IMPRESSION: Small lytic lesions in the distal right femur metaphysis and biparietal skull worrisome for myeloma or metastatic disease Body Scan Nuclear Medicine 08/02/18 00:00 IMPRESSION: There appear to be metastatic lesions in some anterior ribs. There is also intense uptake in the costochondral junctions. Is there history of trauma to the chest? Assessment & Plan - Diagnosis (1) Pneumonia Qualifiers: Pneumonia type: due to unspecified organism Laterality: bilateral Lung location: unspecified part of lung Qualified Code(s): J18.9 - Pneumonia, unspecified organism Is this a current diagnosis for this admission?: Yes (2) Pseudomonas urinary tract infection Is this a current diagnosis for this admission?: Yes (3) CLL (chronic lymphocytic leukemia) Is this a current diagnosis for this admission?: Yes (4) Lytic bone lesion of right femur Is this a current diagnosis for this admission?: Yes - Time Time Spent with patient: 25-34 minutes Medications reviewed and adjusted accordingly: Yes Anticipated discharge: Home with Homehealth Within: Other - Inpatient Certification Based on my medical assessment, after consideration of the patient's comorbidities, presenting symptoms, or acuity I expect that the services needed warrant INPATIENT care.: Yes I certify that my determination is in accordance with my understanding of Medicare's requirements for reasonable and necessary INPATIENT services [42 CFR 412.3e].: Yes Medical Necessity: Significant Comorbidiites Make Outpatient Treatment Too Risky, Need Close Monitoring Due to Risk of Patient Decompensation, Need For IV Fluids, Need For Continuous Telemetry Monitoring, Need for Nebulizer Therapy and Monitoring of Response, Need for IV Antibiotics, Risk of Complication if Not Cared For in Hospital, Risk of Diagnosis Which Will Require Inpatient Eval/Care/Monitoring Post Hospital Care: D/C Security Representative Documentation - Plan Summary Plan Summary: Increase Amlodipine to 5 mg p.o daily from tomorrow. She was given extra dose of Amlodipine 2.5 mg earlier today. continue current antibiotic coverage. maintain on all other current medication management.
[2018-08-04] MEDS: BENZONATATE 100 MG CAPSULE PO PRN (16:37)
[2018-08-04] MEDS: CEFTRIAXONE 1 GM/D5W RTU 1 GM/50 ML RTUPB IV SCH (17:02)
[2018-08-04] MEDS: ALBUTEROL SULFATE HFA (90 MCG/PUFF) 200 PUFF/8.5 GM MDI IH PRN (17:41)
[2018-08-04] MEDS: FAMOTIDINE 20 MG TABLET PO SCH (21:39)
[2018-08-05] MEDS: IPRATROPIUM/ALBUTEROL 0.5-2.5 MG/3 ML AMPUL NEB SCH ×4 (02:07→21:06)
[2018-08-05] MEDS: LEVETIRACETAM 500 MG TABLET PO SCH ×2 (08:02→21:16)
[2018-08-05] MEDS: METOPROLOL TARTRATE 25 MG TABLET PO SCH ×2 (08:02→21:16)
[2018-08-05] MEDS: DRONABINOL 2.5 MG CAPSULE PO SCH ×2 (08:02→21:16)
[2018-08-05] MEDS: CHOLECALCIFEROL (D3) 400 UNIT TABLET PO SCH (08:03)
[2018-08-05] MEDS: MONTELUKAST SODIUM 10 MG TABLET PO SCH (08:03)
[2018-08-05] MEDS: CALCITRIOL 0.25 MCG CAPSULE PO SCH (08:04)
[2018-08-05] MEDS: FLUTICASONE NASAL SPRAY 50 MCG/SPRY 120 SPRAY/16 GM NASL SCH ×2 (08:04→21:17)
[2018-08-05] MEDS: AMLODIPINE BESYLATE 5 MG TABLET PO SCH (08:10)
[2018-08-05] MEDS: BUDESONIDE/FORMOTEROL 160-4.5 MCG 60 PUFF/6 GM MDI IH SCH ×2 (08:11→21:17)
[2018-08-05] MEDS ORDERED: AMLODIPINE BESYLATE 5 MG TABLET PO SCH (10:00)
[2018-08-05 15:37] LABS: ALBUMIN 2 2.8 g/dL (2.9-4.4); ALPHA-2-GLOBULIN 2 0.7 g/dL (0.4-1.0); BETA GLOBULINS 0.7 g/dL (0.7-1.3); GAMMA GLOBULIN 1.2 g/dL (0.4-1.8); GLOBULIN TOTAL 2.9 g/dL (2.2-3.9); MONOCLONAL SPIKE 0.3 g/dL (Not Observ); PROTEIN TOTAL SERUM 5.7 g/dL (6.0-8.5)
[2018-08-05] MEDS: CEFTRIAXONE 1 GM/D5W RTU 1 GM/50 ML RTUPB IV SCH (18:13)
[2018-08-05] MEDS ORDERED: HYDROCODONE BIT/HOMATROPINE SYRUP 5 ML UDCUP PO PRN (20:40)
--- NOTE | 2018-08-05 20:48 | PDOC PROGRESS REPORT ---
Subjective Progress Note for:: 08/05/18 Subjective:: Patient was seen by the bedside, the nursing staff requested for palliative care,, she previously had hospice consultation last year when she came in very sick, she will discus with her siblings regarding her next step whether she want to continue therapy or she goes wants to go to hospice for comfort care. She continues to cough Reason For Visit: PNEUMONIA, CLL, H/O MRSA PNEUMONIA, MULTIPLE Physical Exam Vital Signs: Temp Pulse Resp BP Pulse Ox 97.8 F 92 20 161/91 H 96 08/05/18 19:45 08/05/18 19:45 08/05/18 19:45 08/05/18 19:45 08/05/18 19:45 Intake & Output 08/04/18 08/05/18 08/06/18 06:59 06:59 06:59 Intake Total 1371 606 724 Output Total 450 Balance 921 606 724 Weight 52.3 kg 51.6 kg General appearance: PRESENT: no acute distress Eye exam: PRESENT: PERRLA Respiratory exam: PRESENT: rhonchi Cardiovascular exam: PRESENT: +S1, +S2 GI/Abdominal exam: PRESENT: soft Neurological exam: PRESENT: alert Results Laboratory Results: 08/03/18 04:45 08/01/18 06:00 07/31/18 16:50 Blood Blood Culture - Final NO GROWTH IN 5 DAYS 07/31/18 07/31/18 07/31/18 16:01 16:01 21:25 Creatine Kinase < 20 L < 20 L CK-MB (CK-2) < 0.22 Troponin I < 0.012 NT-Pro-B Natriuret Pep 5000 H 07/31/18 08/01/18 08/01/18 21:25 01:50 01:50 Creatine Kinase < 20 L CK-MB (CK-2) < 0.22 < 0.22 Troponin I < 0.012 < 0.012 NT-Pro-B Natriuret Pep 08/01/18 08/01/18 06:00 06:00 Creatine Kinase < 20 L CK-MB (CK-2) < 0.22 Troponin I < 0.012 NT-Pro-B Natriuret Pep Impressions: Chest CT 07/31/18 00:00 IMPRESSION: Bibasilar consolidation/atelectasis and bronchiectasis. These may represent chronic changes, however, acute pneumonia cannot be excluded. Possible tracheobronchomalacia. TECHNICAL DOCUMENTATION: Quality ID # 436: Final reports with documentation of one or more dose reduction techniques (e.g., Automated exposure control, adjustment of the mA and/or kV according to patient size, use of iterative reconstruction technique) copyright 2011 [employer]- All Rights Reserved Chest X-Ray 07/31/18 15:02 IMPRESSION: Unchanged bibasilar scarring or atelectasis. No new airspace opacity. Head CT 07/31/18 17:23 IMPRESSION: 1. Mild chronic microvascular ischemia with no acute intracranial imaging findings. 2. There are multiple lytic lesions in the calvarium that are new. Metastases versus an infiltrative process. 3. Extensive sinus disease. EVIDENCE OF ACUTE STROKE: NO. Skeletal Survey 08/01/18 00:00 IMPRESSION: Small lytic lesions in the distal right femur metaphysis and biparietal skull worrisome for myeloma or metastatic disease Body Scan Nuclear Medicine 08/02/18 00:00 IMPRESSION: There appear to be metastatic lesions in some anterior ribs. There is also intense uptake in the costochondral junctions. Is there history of trauma to the chest? Assessment & Plan - Diagnosis (1) Pneumonia Qualifiers: Pneumonia type: due to unspecified organism Laterality: unspecified laterality Lung location: unspecified part of lung Qualified Code(s): J18.9 - Pneumonia, unspecified organism Is this a current diagnosis for this admission?: Yes (2) Lytic bone lesion of right femur Is this a current diagnosis for this admission?: Yes (3) Chronic lymphocytic leukemia Is this a current diagnosis for this admission?: Yes (4) DNR (do not resuscitate) Is this a current diagnosis for this admission?: Yes (5) CKD (chronic kidney disease) stage 4, GFR 15-29 ml/min Is this a current diagnosis for this admission?: Yes - Plan Summary Plan Summary: The blood culture grew staph epi, this is most likely contamination, vancomycin was discontinued the urine culture grew Pseudomonas aeruginosa with insignificant colony count, She is presently on ceftriaxone
[2018-08-05] MEDS ORDERED: HYDROCODONE BIT/HOMATROPINE 5-1.5 MG TABLET PO PRN (21:03)
[2018-08-05] MEDS: FAMOTIDINE 20 MG TABLET PO SCH (21:16)
[2018-08-06] MEDS: IPRATROPIUM/ALBUTEROL 0.5-2.5 MG/3 ML AMPUL NEB SCH ×4 (02:11→21:25)
[2018-08-06] MEDS: MONTELUKAST SODIUM 10 MG TABLET PO SCH (08:55)
[2018-08-06] MEDS: CALCITRIOL 0.25 MCG CAPSULE PO SCH (08:55)
[2018-08-06] MEDS: LEVETIRACETAM 500 MG TABLET PO SCH ×2 (08:55→22:23)
[2018-08-06] MEDS: METOPROLOL TARTRATE 25 MG TABLET PO SCH ×2 (08:55→22:24)
[2018-08-06] MEDS: AMLODIPINE BESYLATE 5 MG TABLET PO SCH (08:55)
[2018-08-06] MEDS: CHOLECALCIFEROL (D3) 400 UNIT TABLET PO SCH (08:55)
[2018-08-06] MEDS: FLUTICASONE NASAL SPRAY 50 MCG/SPRY 120 SPRAY/16 GM NASL SCH ×2 (08:56→22:20)
[2018-08-06] MEDS: DRONABINOL 2.5 MG CAPSULE PO SCH ×2 (08:56→22:23)
[2018-08-06] MEDS: BUDESONIDE/FORMOTEROL 160-4.5 MCG 60 PUFF/6 GM MDI IH SCH ×2 (08:56→22:21)
[2018-08-06] MEDS: ACETAMINOPHEN 325 MG TABLET PO PRN ×2 (10:37→16:30)
[2018-08-06 15:37] LABS: ALBUMIN 3 2.8 g/dL (2.9-4.4); ALPHA-1-GLOBULIN 0.4 g/dL (0.0-0.4); BETA GLOBULIN 0.6 g/dL (0.7-1.3); GAMMA GLOBULINS 1.2 g/dL (0.4-1.8); IMMUNOGLOBULIN A 51 mg/dL (87-352); IMMUNOGLOBULIN G 1089 mg/dL (700-1600); IMMUNOGLOBULIN M 254 mg/dL (26-217); MONOCLONAL-SPIKE 0.3 g/dL (Not Observ); PROTEIN TOTAL SERUM 5.7 g/dL (6.0-8.5)
[2018-08-06 17:32] LABS: HEMATOCRIT 31.2 % (36.0-47.0); HEMOGLOBIN 10.4 g/dL (12.0-15.5); MEAN CORPUSCULAR HEMOGLOBIN 32.3 pg (27.0-33.4); MEAN CORPUSCULAR HGB CONC 33.3 g/dL (32.0-36.0); MEAN CORPUSCULAR VOLUME 97 fl (80-97); RED BLOOD COUNT 3.22 10^6/uL (3.72-5.28); RED CELL DISTRIBUTION WIDTH 23.5 % (11.5-14.0); WHITE BLOOD COUNT 16.2 10^3/uL (4.0-10.5)
[2018-08-06] MEDS ORDERED: ONDANSETRON HCL 8 MG TABLET PO PRN (17:33)
[2018-08-06] MEDS ORDERED: DEXTROSE 50%-WATER 25 GM/50 ML DISP.SYRIN IV PRN ×2 (17:48)
[2018-08-06] MEDS ORDERED: DEXTROSE 40% GEL 15 GM TUBE PO PRN ×2 (17:48)
[2018-08-06] MEDS ORDERED: GLUCAGON,HUMAN RECOMB 1 MG INJ SUBCUT PRN (17:48)
[2018-08-06 17:56] LABS: PLATELET COUNT 46 10^3/uL (150-450)
[2018-08-06 18:01] LABS: ALANINE AMINOTRANSFERASE 14 U/L (9-52); ALBUMIN 3.1 g/dL (3.5-5.0); ALKALINE PHOSPHATASE 110 U/L (38-126); ANION GAP 6 (5-19); ASPARTATE AMINO TRANSFERASE 40 U/L (14-36); BILIRUBIN,DIRECT 0.5 mg/dL (0.0-0.4); BILIRUBIN,TOTAL 0.6 mg/dL (0.2-1.3); BLOOD UREA NITROGEN 33 mg/dL (7-20); CALCIUM 10.3 mg/dL (8.4-10.2); CARBON DIOXIDE 36 mmol/L (22-30); CHLORIDE 102 mmol/L (98-107); GLUCOSE 102 mg/dL (75-110); POTASSIUM 3.8 mmol/L (3.6-5.0); TOTAL PROTEIN 5.8 g/dL (6.3-8.2)
[2018-08-06 18:16] LABS: ABSOLUTE LYMPHOCYTES# (MANUAL) 10.4 10^3/uL (0.5-4.7); ABSOLUTE NEUTROPHILS# (MANUAL) 4.4 10^3/uL (1.7-8.2); BASOPHILS % (MANUAL) 0 % (0-2); EOSINOPHILS % (MANUAL) 3 % (0-6); LYMPHOCYTES % (MANUAL) 57 % (13-45); MONOCYTES % (MANUAL) 6 % (3-13); NUCLEATED RED BLOOD CELLS 3 /100 WBC (0); PLATELET COMMENT DECREASED; SEGMENTED NEUTROPHILS % (MAN) 27 % (42-78); TOTAL CELLS COUNTED 100
[2018-08-06 18:19] LABS: ANISOCYTOSIS 3+; OVALOCYTES SLIGHT; POIKILOCYTOSIS 1+; SCHISTOCYTES SLIGHT; TARGET CELLS 1+
[2018-08-06 19:19] LABS: INTERNATIONAL RATION (INR) 0.96; PROTHROMBIN TIME 13.3 SEC (11.4-15.4)
[2018-08-06 19:20] LABS: PARTIAL THROMBOPLASTIN TIME 25.6 SEC (23.5-35.8)
[2018-08-06] MEDS: CEFTRIAXONE 1 GM/D5W RTU 1 GM/50 ML RTUPB IV SCH (19:27)
--- NOTE | 2018-08-06 20:16 | PDOC PROGRESS REPORT ---
Subjective Progress Note for:: 08/06/18 Subjective:: Patient was seen by the bedside ,serum protein Electrophoresis was positive for M spike, in the context of lytic bone lesion this makes multiple myeloma very likely, though the concentration of the M spike is low is less than 3g/dl, I asked the patient if she wants a bone marrow biopsy, a bone marrow biopsy is indicated to confirm multiple myeloma .if plasma cell is more than 30% of bone marrow cellularity that would confirm multiple myeloma. She also contemplating transition to hospice ,she is not sure which direction she wants to pursue, I will place the order for bone marrow biopsy in a.m. Reason For Visit: PNEUMONIA, CLL, H/O MRSA PNEUMONIA, MULTIPLE Physical Exam Vital Signs: Temp Pulse Resp BP Pulse Ox 97.9 F 101 H 19 160/93 H 99 08/06/18 16:00 08/06/18 16:00 08/06/18 16:00 08/06/18 16:00 08/06/18 16:00 Intake & Output 08/05/18 08/06/18 08/07/18 06:59 06:59 06:59 Intake Total 606 1108 50 Output Total 100 Balance 606 1108 -50 Weight 51.6 kg 51.2 kg General appearance: PRESENT: no acute distress Eye exam: PRESENT: PERRLA Respiratory exam: PRESENT: rhonchi Cardiovascular exam: PRESENT: +S1, +S2 GI/Abdominal exam: PRESENT: soft Results Laboratory Results: 08/06/18 15:00 08/06/18 15:00 08/01/18 08/06/18 08/06/18 00:15 15:00 15:00 WBC 16.2 H RBC 3.22 L Hgb 10.4 L Hct 31.2 L MCV 97 MCH 32.3 MCHC 33.3 RDW 23.5 H Plt Count 46 L Seg Neutrophils % Not Reportable Lymphocytes % Not Reportable Monocytes % Not Reportable Eosinophils % Not Reportable Basophils % Not Reportable Absolute Neutrophils Not Reportable Absolute Lymphocytes Not Reportable Absolute Monocytes Not Reportable Absolute Eosinophils Not Reportable Absolute Basophils Not Reportable Sodium 144.0 Potassium 3.8 Chloride 102 Carbon Dioxide 36 H Anion Gap 6 BUN 33 H Creatinine 2.43 H Est GFR ( Amer) 24 L Est GFR (Non-Af Amer) 20 L Glucose 102 Calcium 10.3 H Total Bilirubin 0.6 AST 40 H ALT 14 Alkaline Phosphatase 110 Total Protein 5.7 L 5.8 L Albumin 2.8 L 3.1 L 07/31/18 16:50 Blood Blood Culture - Final NO GROWTH IN 5 DAYS 07/31/18 07/31/18 07/31/18 16:01 16:01 21:25 Creatine Kinase < 20 L < 20 L CK-MB (CK-2) < 0.22 Troponin I < 0.012 NT-Pro-B Natriuret Pep 5000 H 07/31/18 08/01/18 08/01/18 21:25 01:50 01:50 Creatine Kinase < 20 L CK-MB (CK-2) < 0.22 < 0.22 Troponin I < 0.012 < 0.012 NT-Pro-B Natriuret Pep 08/01/18 08/01/18 06:00 06:00 Creatine Kinase < 20 L CK-MB (CK-2) < 0.22 Troponin I < 0.012 NT-Pro-B Natriuret Pep Impressions: Chest CT 07/31/18 00:00 IMPRESSION: Bibasilar consolidation/atelectasis and bronchiectasis. These may represent chronic changes, however, acute pneumonia cannot be excluded. Possible tracheobronchomalacia. TECHNICAL DOCUMENTATION: Quality ID # 436: Final reports with documentation of one or more dose reduction techniques (e.g., Automated exposure control, adjustment of the mA and/or kV according to patient size, use of iterative reconstruction technique) copyright 2011 [employer]- All Rights Reserved Chest X-Ray 07/31/18 15:02 IMPRESSION: Unchanged bibasilar scarring or atelectasis. No new airspace opacity. Head CT 07/31/18 17:23 IMPRESSION: 1. Mild chronic microvascular ischemia with no acute intracranial imaging findings. 2. There are multiple lytic lesions in the calvarium that are new. Metastases versus an infiltrative process. 3. Extensive sinus disease. EVIDENCE OF ACUTE STROKE: NO. Skeletal Survey 08/01/18 00:00 IMPRESSION: Small lytic lesions in the distal right femur metaphysis and biparietal skull worrisome for myeloma or metastatic disease Body Scan Nuclear Medicine 08/02/18 00:00 IMPRESSION: There appear to be metastatic lesions in some anterior ribs. There is also intense uptake in the costochondral junctions. Is there history of trauma to the chest? Assessment & Plan - Diagnosis (1) Pneumonia Qualifiers: Pneumonia type: due to unspecified organism Laterality: unspecified laterality Lung location: unspecified part of lung Qualified Code(s): J18.9 - Pneumonia, unspecified organism Is this a current diagnosis for this admission?: Yes (2) Lytic bone lesion of right femur Is this a current diagnosis for this admission?: Yes (3) Chronic lymphocytic leukemia Is this a current diagnosis for this admission?: Yes (4) DNR (do not resuscitate) Is this a current diagnosis for this admission?: Yes (5) CKD (chronic kidney disease) stage 4, GFR 15-29 ml/min Is this a current diagnosis for this admission?: Yes (6) Plasma cell dyscrasia Is this a current diagnosis for this admission?: Yes Plan: She has evidence of plasma cell dyscrasia, bone marrow biopsy will be ordered, So clearly she may have 2 different cancer, CLL and also multiple myeloma and will consult with oncology
[2018-08-06] MEDS: FAMOTIDINE 20 MG TABLET PO SCH (22:24)
[2018-08-07] MEDS: IPRATROPIUM/ALBUTEROL 0.5-2.5 MG/3 ML AMPUL NEB SCH ×4 (02:01→20:09)
[2018-08-07] MEDS: ACETAMINOPHEN 325 MG TABLET PO PRN (02:30)
[2018-08-07] MEDS: BENZONATATE 100 MG CAPSULE PO PRN ×2 (03:38→19:25)
[2018-08-07] MEDS: AMLODIPINE BESYLATE 5 MG TABLET PO SCH (10:12)
[2018-08-07] MEDS: LEVETIRACETAM 500 MG TABLET PO SCH ×2 (10:42→22:26)
[2018-08-07] MEDS: DRONABINOL 2.5 MG CAPSULE PO SCH ×2 (10:42→22:25)
[2018-08-07] MEDS: BUDESONIDE/FORMOTEROL 160-4.5 MCG 60 PUFF/6 GM MDI IH SCH ×2 (10:42→22:33)
[2018-08-07] MEDS: MONTELUKAST SODIUM 10 MG TABLET PO SCH (10:42)
[2018-08-07] MEDS: METOPROLOL TARTRATE 25 MG TABLET PO SCH ×2 (10:42→22:26)
[2018-08-07] MEDS: CHOLECALCIFEROL (D3) 400 UNIT TABLET PO SCH (11:00)
[2018-08-07] MEDS: FLUTICASONE NASAL SPRAY 50 MCG/SPRY 120 SPRAY/16 GM NASL SCH ×2 (11:00→22:34)
[2018-08-07] MEDS: CALCITRIOL 0.25 MCG CAPSULE PO SCH (11:00)
[2018-08-07 16:38] LABS: GAMMA GLOBULIN UR 33.6 % (.); M-SPIKE % URINE 10.2 % (Not Observ); PROTEIN TOTAL URINE 17.6 mg/dL (Not Estab.)
[2018-08-07] MEDS: CEFTRIAXONE 1 GM/D5W RTU 1 GM/50 ML RTUPB IV SCH (17:11)
--- NOTE | 2018-08-07 18:29 | PDOC PROGRESS REPORT ---
Subjective Progress Note for:: 08/07/18 Subjective:: Patient declined bone marrow biopsy today because she does not feel well but she is open to bone marrow biopsy tomorrow Reason For Visit: PNEUMONIA, CLL, H/O MRSA PNEUMONIA, MULTIPLE Physical Exam Vital Signs: Temp Pulse Resp BP Pulse Ox 97.7 F 90 22 H 149/80 H 90 L 08/07/18 15:30 08/07/18 15:30 08/07/18 15:30 08/07/18 15:30 08/07/18 15:30 Intake & Output 08/06/18 08/07/18 08/08/18 06:59 06:59 06:59 Intake Total 1108 370 50 Output Total 250 Balance 1108 120 50 Weight 51.2 kg 50.1 kg General appearance: PRESENT: no acute distress Eye exam: PRESENT: PERRLA Respiratory exam: PRESENT: clear to auscultation sendy Cardiovascular exam: PRESENT: +S1, +S2 GI/Abdominal exam: PRESENT: soft Neurological exam: PRESENT: alert, CN II-XII grossly intact Results Laboratory Results: 08/06/18 15:00 08/06/18 15:00 08/01/18 06:00 Total Protein 5.7 L Albumin 2.8 L 07/31/18 07/31/18 07/31/18 16:01 16:01 21:25 Creatine Kinase < 20 L < 20 L CK-MB (CK-2) < 0.22 Troponin I < 0.012 NT-Pro-B Natriuret Pep 5000 H 07/31/18 08/01/18 08/01/18 21:25 01:50 01:50 Creatine Kinase < 20 L CK-MB (CK-2) < 0.22 < 0.22 Troponin I < 0.012 < 0.012 NT-Pro-B Natriuret Pep 08/01/18 08/01/18 06:00 06:00 Creatine Kinase < 20 L CK-MB (CK-2) < 0.22 Troponin I < 0.012 NT-Pro-B Natriuret Pep Impressions: Chest CT 07/31/18 00:00 IMPRESSION: Bibasilar consolidation/atelectasis and bronchiectasis. These may represent chronic changes, however, acute pneumonia cannot be excluded. Possible tracheobronchomalacia. TECHNICAL DOCUMENTATION: Quality ID # 436: Final reports with documentation of one or more dose reduction techniques (e.g., Automated exposure control, adjustment of the mA and/or kV according to patient size, use of iterative reconstruction technique) copyright 2011 [employer]- All Rights Reserved Chest X-Ray 07/31/18 15:02 IMPRESSION: Unchanged bibasilar scarring or atelectasis. No new airspace opacity. Head CT 07/31/18 17:23 IMPRESSION: 1. Mild chronic microvascular ischemia with no acute intracranial imaging findings. 2. There are multiple lytic lesions in the calvarium that are new. Metastases versus an infiltrative process. 3. Extensive sinus disease. EVIDENCE OF ACUTE STROKE: NO. Skeletal Survey 08/01/18 00:00 IMPRESSION: Small lytic lesions in the distal right femur metaphysis and biparietal skull worrisome for myeloma or metastatic disease Body Scan Nuclear Medicine 08/02/18 00:00 IMPRESSION: There appear to be metastatic lesions in some anterior ribs. There is also intense uptake in the costochondral junctions. Is there history of trauma to the chest? Assessment & Plan - Diagnosis (1) Pneumonia Qualifiers: Pneumonia type: due to unspecified organism Laterality: unspecified laterality Lung location: unspecified part of lung Qualified Code(s): J18.9 - Pneumonia, unspecified organism Is this a current diagnosis for this admission?: Yes (2) Lytic bone lesion of right femur Is this a current diagnosis for this admission?: Yes Plan: The differential diagnosis include multiple myeloma, chronic lymphocytic leukemia, will request serum protein electrophoresis, urine protein electrophoresis, serum light chain concentration/Bence-Kaminski protein in the urine.Patient has wants to be DNR statusShe does not want mechanical ventilation, chest compression (3) Chronic lymphocytic leukemia Is this a current diagnosis for this admission?: Yes (4) DNR (do not resuscitate) Is this a current diagnosis for this admission?: Yes (5) CKD (chronic kidney disease) stage 4, GFR 15-29 ml/min Is this a current diagnosis for this admission?: Yes (6) Plasma cell dyscrasia Is this a current diagnosis for this admission?: Yes Plan: She has evidence of plasma cell dyscrasia, bone marrow biopsy will be ordered, So clearly she may have 2 different cancer, CLL and also multiple myeloma and will consult with oncology
[2018-08-07] MEDS: ALBUTEROL SULFATE HFA (90 MCG/PUFF) 200 PUFF/8.5 GM MDI IH PRN (19:29)
[2018-08-07] MEDS: FAMOTIDINE 20 MG TABLET PO SCH (22:26)
[2018-08-08] MEDS: IPRATROPIUM/ALBUTEROL 0.5-2.5 MG/3 ML AMPUL NEB SCH ×4 (02:19→20:11)
[2018-08-08] MEDS: FLUTICASONE NASAL SPRAY 50 MCG/SPRY 120 SPRAY/16 GM NASL SCH ×2 (12:20→22:55)
[2018-08-08] MEDS: BENZONATATE 100 MG CAPSULE PO PRN (12:20)
[2018-08-08] MEDS: MONTELUKAST SODIUM 10 MG TABLET PO SCH (12:20)
[2018-08-08] MEDS: METOPROLOL TARTRATE 25 MG TABLET PO SCH ×2 (12:20→22:56)
[2018-08-08] MEDS: AMLODIPINE BESYLATE 5 MG TABLET PO SCH (12:20)
[2018-08-08] MEDS: BUDESONIDE/FORMOTEROL 160-4.5 MCG 60 PUFF/6 GM MDI IH SCH ×2 (12:21→22:55)
[2018-08-08] MEDS: CHOLECALCIFEROL (D3) 400 UNIT TABLET PO SCH (12:21)
[2018-08-08] MEDS: CALCITRIOL 0.25 MCG CAPSULE PO SCH (12:21)
[2018-08-08] MEDS: DRONABINOL 2.5 MG CAPSULE PO SCH (12:21)
[2018-08-08] MEDS: LEVETIRACETAM 500 MG TABLET PO SCH ×2 (12:21→22:56)
--- NOTE | 2018-08-08 19:51 | PDOC PROGRESS REPORT ---
Subjective Progress Note for:: 08/08/18 Subjective:: Patient seen by the bedside, she requires noninvasive positive pressure ventilation last night and this morning Reason For Visit: PNEUMONIA, CLL, H/O MRSA PNEUMONIA, MULTIPLE Physical Exam Vital Signs: Temp Pulse Resp BP Pulse Ox 97.9 F 96 22 H 177/93 H 96 08/08/18 15:24 08/08/18 15:24 08/08/18 15:24 08/08/18 15:24 08/08/18 15:57 Intake & Output 08/07/18 08/08/18 08/09/18 06:59 06:59 06:59 Intake Total 370 370 Output Total 250 Balance 120 370 Weight 50.1 kg 50 kg General appearance: PRESENT: no acute distress Eye exam: PRESENT: PERRLA Respiratory exam: PRESENT: rhonchi Cardiovascular exam: PRESENT: +S1, +S2 GI/Abdominal exam: PRESENT: soft Neurological exam: PRESENT: alert Results Laboratory Results: 08/06/18 15:00 08/06/18 15:00 07/31/18 07/31/18 07/31/18 16:01 16:01 21:25 Creatine Kinase < 20 L < 20 L CK-MB (CK-2) < 0.22 Troponin I < 0.012 NT-Pro-B Natriuret Pep 5000 H 07/31/18 08/01/18 08/01/18 21:25 01:50 01:50 Creatine Kinase < 20 L CK-MB (CK-2) < 0.22 < 0.22 Troponin I < 0.012 < 0.012 NT-Pro-B Natriuret Pep 08/01/18 08/01/18 06:00 06:00 Creatine Kinase < 20 L CK-MB (CK-2) < 0.22 Troponin I < 0.012 NT-Pro-B Natriuret Pep Impressions: Chest CT 07/31/18 00:00 IMPRESSION: Bibasilar consolidation/atelectasis and bronchiectasis. These may represent chronic changes, however, acute pneumonia cannot be excluded. Possible tracheobronchomalacia. TECHNICAL DOCUMENTATION: Quality ID # 436: Final reports with documentation of one or more dose reduction techniques (e.g., Automated exposure control, adjustment of the mA and/or kV according to patient size, use of iterative reconstruction technique) copyright 2011 [employer]- All Rights Reserved Chest X-Ray 07/31/18 15:02 IMPRESSION: Unchanged bibasilar scarring or atelectasis. No new airspace opacity. Head CT 07/31/18 17:23 IMPRESSION: 1. Mild chronic microvascular ischemia with no acute intracranial imaging findings. 2. There are multiple lytic lesions in the calvarium that are new. Metastases versus an infiltrative process. 3. Extensive sinus disease. EVIDENCE OF ACUTE STROKE: NO. Skeletal Survey 08/01/18 00:00 IMPRESSION: Small lytic lesions in the distal right femur metaphysis and biparietal skull worrisome for myeloma or metastatic disease Body Scan Nuclear Medicine 08/02/18 00:00 IMPRESSION: There appear to be metastatic lesions in some anterior ribs. There is also intense uptake in the costochondral junctions. Is there history of trauma to the chest? Assessment & Plan - Diagnosis (1) Pneumonia Qualifiers: Pneumonia type: due to unspecified organism Laterality: unspecified laterality Lung location: unspecified part of lung Qualified Code(s): J18.9 - Pneumonia, unspecified organism Is this a current diagnosis for this admission?: Yes (2) Lytic bone lesion of right femur Is this a current diagnosis for this admission?: Yes Plan: The differential diagnosis include multiple myeloma, chronic lymphocytic leuke duong, will request serum protein electrophoresis, urine protein electrophoresis, serum light chain concentration/Bence-Kaminski protein in the urine.Patient has wants to be DNR statusShe does not want mechanical ventilation, chest compression (3) Chronic lymphocytic leukemia Is this a current diagnosis for this admission?: Yes (4) DNR (do not resuscitate) Is this a current diagnosis for this admission?: Yes (5) CKD (chronic kidney disease) stage 4, GFR 15-29 ml/min Is this a current diagnosis for this admission?: Yes (6) Plasma cell dyscrasia Is this a current diagnosis for this admission?: Yes Plan: She has evidence of plasma cell dyscrasia, bone marrow biopsy will be ordered, So clearly she may have 2 different cancer, CLL and also multiple myeloma
[2018-08-08] MEDS: FAMOTIDINE 20 MG TABLET PO SCH (22:56)
[2018-08-09] MEDS: IPRATROPIUM/ALBUTEROL 0.5-2.5 MG/3 ML AMPUL NEB SCH ×4 (02:22→21:38)
[2018-08-09] MEDS: LEVETIRACETAM 500 MG TABLET PO SCH ×2 (09:10→22:16)
[2018-08-09] MEDS: METOPROLOL TARTRATE 25 MG TABLET PO SCH ×2 (09:11→22:15)
[2018-08-09] MEDS: AMLODIPINE BESYLATE 5 MG TABLET PO SCH (09:11)
[2018-08-09] MEDS: CHOLECALCIFEROL (D3) 400 UNIT TABLET PO SCH (09:11)
[2018-08-09] MEDS: FLUTICASONE NASAL SPRAY 50 MCG/SPRY 120 SPRAY/16 GM NASL SCH ×2 (09:11→22:24)
[2018-08-09] MEDS: CALCITRIOL 0.25 MCG CAPSULE PO SCH (09:12)
[2018-08-09] MEDS: BUDESONIDE/FORMOTEROL 160-4.5 MCG 60 PUFF/6 GM MDI IH SCH ×2 (09:12→22:24)
[2018-08-09] MEDS: MONTELUKAST SODIUM 10 MG TABLET PO SCH (09:12)
--- NOTE | 2018-08-09 21:00 | PDOC PROGRESS REPORT ---
Subjective Progress Note for:: 08/09/18 Subjective:: The bone marrow biopsy was not done, the urine electrophoresis was positive for Bence-Kaminski proteins, consistent with light chains myeloma, the serum protein electrophoresis was positive for myeloma proteins Reason For Visit: PNEUMONIA, CLL, H/O MRSA PNEUMONIA, MULTIPLE Physical Exam Vital Signs: Temp Pulse Resp BP Pulse Ox 98.1 F 92 24 H 171/91 H 100 08/09/18 15:45 08/09/18 15:45 08/09/18 15:45 08/09/18 15:45 08/09/18 15:45 Intake & Output 08/08/18 08/09/18 08/10/18 06:59 06:59 06:59 Intake Total 370 100 100 Balance 370 100 100 Weight 50 kg 48 kg General appearance: PRESENT: no acute distress Eye exam: PRESENT: PERRLA Respiratory exam: PRESENT: clear to auscultation sendy Cardiovascular exam: PRESENT: +S1, +S2 GI/Abdominal exam: PRESENT: soft Neurological exam: PRESENT: alert Results Laboratory Results: 08/06/18 15:00 08/06/18 15:00 07/31/18 07/31/18 07/31/18 16:01 16:01 21:25 Creatine Kinase < 20 L < 20 L CK-MB (CK-2) < 0.22 Troponin I < 0.012 NT-Pro-B Natriuret Pep 5000 H 07/31/18 08/01/18 08/01/18 21:25 01:50 01:50 Creatine Kinase < 20 L CK-MB (CK-2) < 0.22 < 0.22 Troponin I < 0.012 < 0.012 NT-Pro-B Natriuret Pep 08/01/18 08/01/18 06:00 06:00 Creatine Kinase < 20 L CK-MB (CK-2) < 0.22 Troponin I < 0.012 NT-Pro-B Natriuret Pep Impressions: Chest CT 07/31/18 00:00 IMPRESSION: Bibasilar consolidation/atelectasis and bronchiectasis. These may represent chronic changes, however, acute pneumonia cannot be excluded. Possible tracheobronchomalacia. TECHNICAL DOCUMENTATION: Quality ID # 436: Final reports with documentation of one or more dose reduction techniques (e.g., Automated exposure control, adjustment of the mA and/or kV according to patient size, use of iterative reconstruction technique) copyright 2011 [employer]- All Rights Reserved Chest X-Ray 07/31/18 15:02 IMPRESSION: Unchanged bibasilar scarring or atelectasis. No new airspace opacity. Head CT 07/31/18 17:23 IMPRESSION: 1. Mild chronic microvascular ischemia with no acute intracranial imaging findings. 2. There are multiple lytic lesions in the calvarium that are new. Metastases versus an infiltrative process. 3. Extensive sinus disease. EVIDENCE OF ACUTE STROKE: NO. Skeletal Survey 08/01/18 00:00 IMPRESSION: Small lytic lesions in the distal right femur metaphysis and biparietal skull worrisome for myeloma or metastatic disease Body Scan Nuclear Medicine 08/02/18 00:00 IMPRESSION: There appear to be metastatic lesions in some anterior ribs. There is also intense uptake in the costochondral junctions. Is there history of trauma to the chest? Assessment & Plan - Diagnosis (1) Pneumonia Qualifiers: Pneumonia type: due to unspecified organism Laterality: unspecified laterality Lung location: unspecified part of lung Qualified Code(s): J18.9 - Pneumonia, unspecified organism Is this a current diagnosis for this admission?: Yes (2) Lytic bone lesion of right femur Is this a current diagnosis for this admission?: Yes (3) Chronic lymphocytic leukemia Is this a current diagnosis for this admission?: Yes (4) DNR (do not resuscitate) Is this a current diagnosis for this admission?: Yes (5) CKD (chronic kidney disease) stage 4, GFR 15-29 ml/min Is this a current diagnosis for this admission?: Yes (6) Plasma cell dyscrasia Is this a current diagnosis for this admission?: Yes Plan: she needs bone marrow biopsy ,consult oncology
[2018-08-09] MEDS: FAMOTIDINE 20 MG TABLET PO SCH (22:15)
[2018-08-10] MEDS: IPRATROPIUM/ALBUTEROL 0.5-2.5 MG/3 ML AMPUL NEB SCH ×4 (05:27→20:02)
[2018-08-10] MEDS: AMLODIPINE BESYLATE 5 MG TABLET PO SCH (10:38)
[2018-08-10] MEDS: LEVETIRACETAM 500 MG TABLET PO SCH ×2 (10:38→21:35)
[2018-08-10] MEDS: FLUTICASONE NASAL SPRAY 50 MCG/SPRY 120 SPRAY/16 GM NASL SCH ×2 (10:38→21:34)
[2018-08-10] MEDS: CALCITRIOL 0.25 MCG CAPSULE PO SCH (10:39)
[2018-08-10] MEDS: MONTELUKAST SODIUM 10 MG TABLET PO SCH (10:39)
[2018-08-10] MEDS: CHOLECALCIFEROL (D3) 400 UNIT TABLET PO SCH (10:39)
[2018-08-10] MEDS: METOPROLOL TARTRATE 25 MG TABLET PO SCH ×2 (10:39→21:35)
[2018-08-10] MEDS: BUDESONIDE/FORMOTEROL 160-4.5 MCG 60 PUFF/6 GM MDI IH SCH ×2 (10:39→21:35)
--- NOTE | 2018-08-10 18:01 | PDOC PROGRESS REPORT ---
Subjective Progress Note for:: 08/10/18 Subjective:: , Patient seen by the bedside, the urine electrophoresis was positive for Bence- Kaminski protein suggesting light chain multiple myeloma, bone marrow biopsy yet to be done., Nurses said patient is pocketing food she is not swallowing the food, this is worrisome, speech evaluation is already ordered, overall patient condition is poor Reason For Visit: PNEUMONIA, CLL, H/O MRSA PNEUMONIA, MULTIPLE Physical Exam Vital Signs: Temp Pulse Resp BP Pulse Ox 97.4 F 97 21 H 163/94 H 100 08/10/18 15:42 08/10/18 15:42 08/10/18 15:42 08/10/18 15:42 08/10/18 15:42 Intake & Output 08/09/18 08/10/18 08/11/18 06:59 06:59 06:59 Intake Total 100 100 237 Balance 100 100 237 Weight 48 kg 47 kg General appearance: PRESENT: no acute distress Eye exam: PRESENT: PERRLA Respiratory exam: PRESENT: clear to auscultation sendy Cardiovascular exam: PRESENT: +S1, +S2 GI/Abdominal exam: PRESENT: soft Neurological exam: PRESENT: alert Results Laboratory Results: 08/06/18 15:00 08/06/18 15:00 07/31/18 07/31/18 07/31/18 16:01 16:01 21:25 Creatine Kinase < 20 L < 20 L CK-MB (CK-2) < 0.22 Troponin I < 0.012 NT-Pro-B Natriuret Pep 5000 H 07/31/18 08/01/18 08/01/18 21:25 01:50 01:50 Creatine Kinase < 20 L CK-MB (CK-2) < 0.22 < 0.22 Troponin I < 0.012 < 0.012 NT-Pro-B Natriuret Pep 08/01/18 08/01/18 06:00 06:00 Creatine Kinase < 20 L CK-MB (CK-2) < 0.22 Troponin I < 0.012 NT-Pro-B Natriuret Pep Impressions: Chest CT 07/31/18 00:00 IMPRESSION: Bibasilar consolidation/atelectasis and bronchiectasis. These may represent chronic changes, however, acute pneumonia cannot be excluded. Possible tracheobronchomalacia. TECHNICAL DOCUMENTATION: Quality ID # 436: Final reports with documentation of one or more dose reduction techniques (e.g., Automated exposure control, adjustment of the mA and/or kV according to patient size, use of iterative reconstruction technique) copyright 2011 [employer]- All Rights Reserved Chest X-Ray 07/31/18 15:02 IMPRESSION: Unchanged bibasilar scarring or atelectasis. No new airspace opacity. Head CT 07/31/18 17:23 IMPRESSION: 1. Mild chronic microvascular ischemia with no acute intracranial imaging findings. 2. There are multiple lytic lesions in the calvarium that are new. Metastases versus an infiltrative process. 3. Extensive sinus disease. EVIDENCE OF ACUTE STROKE: NO. Skeletal Survey 08/01/18 00:00 IMPRESSION: Small lytic lesions in the distal right femur metaphysis and biparietal skull worrisome for myeloma or metastatic disease Body Scan Nuclear Medicine 08/02/18 00:00 IMPRESSION: There appear to be metastatic lesions in some anterior ribs. There is also intense uptake in the costochondral junctions. Is there history of trauma to the chest? Assessment & Plan - Diagnosis (1) Pneumonia Qualifiers: Pneumonia type: due to unspecified organism Laterality: unspecified laterality Lung location: unspecified part of lung Qualified Code(s): J18.9 - Pneumonia, unspecified organism Is this a current diagnosis for this admission?: Yes (2) Lytic bone lesion of right femur Is this a current diagnosis for this admission?: Yes (3) Chronic lymphocytic leukemia Is this a current diagnosis for this admission?: Yes (4) DNR (do not resuscitate) Is this a current diagnosis for this admission?: Yes (5) CKD (chronic kidney disease) stage 4, GFR 15-29 ml/min Is this a current diagnosis for this admission?: Yes (6) Plasma cell dyscrasia Is this a current diagnosis for this admission?: Yes Plan: She has light chain multiple 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
--- NOTE | 2018-08-10 19:51 | RADIOLOGY REPORT (SQ) ---
EXAM DESCRIPTION: MRI HEAD WITHOUT COMPLETED DATE/TIME: 08/10/2018 7:23 pm REASON FOR STUDY: ENCEPHALOPATHY COMPARISON: 05/15/2018 TECHNIQUE: Multiplanar imaging includes non-contrasted diffusion with ADC map sequences. Images stor ed on PACS. LIMITATIONS: None. FINDINGS: DIFFUSION IMAGING: Negative for acute or sub-acute infarction. OTHER: No other significant finding. IMPRESSION: Negative for acute or sub-acute infarction. EVIDENCE OF ACUTE STROKE: NO. TECHNICAL DOCUMENTATION: JOB ID: [id number] [place]-72 2010 [employer]- All Rights Reserved Reading location - IP/workstation name: [email or web address]
[2018-08-10] MEDS: FAMOTIDINE 20 MG TABLET PO SCH (21:35)
[2018-08-11] MEDS: IPRATROPIUM/ALBUTEROL 0.5-2.5 MG/3 ML AMPUL NEB SCH ×4 (02:24→20:38)
[2018-08-11] MEDS: AMLODIPINE BESYLATE 5 MG TABLET PO SCH (09:24)
[2018-08-11] MEDS: FLUTICASONE NASAL SPRAY 50 MCG/SPRY 120 SPRAY/16 GM NASL SCH ×2 (09:30→23:26)
[2018-08-11] MEDS: CALCITRIOL 0.25 MCG CAPSULE PO SCH (11:14)
[2018-08-11] MEDS: MONTELUKAST SODIUM 10 MG TABLET PO SCH (11:14)
[2018-08-11] MEDS: LEVETIRACETAM 500 MG TABLET PO SCH ×2 (11:14→23:27)
[2018-08-11] MEDS: METOPROLOL TARTRATE 25 MG TABLET PO SCH ×2 (11:14→23:27)
[2018-08-11] MEDS: BUDESONIDE/FORMOTEROL 160-4.5 MCG 60 PUFF/6 GM MDI IH SCH ×2 (11:14→23:26)
[2018-08-11] MEDS: CHOLECALCIFEROL (D3) 400 UNIT TABLET PO SCH (11:14)
[2018-08-11] MEDS ORDERED: LABETALOL HCL INJ 20 MG/4 ML DISP.SYRIN IV PRN (14:32)
[2018-08-11] MEDS ORDERED: MORPHINE SULFATE 10 MG/ML INJ INJ PRN (14:34)
--- NOTE | 2018-08-11 15:10 | PDOC PROGRESS REPORT ---
Subjective Progress Note for:: 08/11/18 Subjective:: , Patient seen by the bedside, the urine electrophoresis was positive for Bence- Kaminski protein suggesting light chain multiple myeloma, bone marrow biopsy yet to be done., Nurses said patient is pocketing food she is not swallowing the food, this is worrisome, speech evaluation is already ordered, overall patient condition is poor , MRI brain was done yesterday, there is no acute infarct of the brain ,she is not taking her medication orally ,the medications are t ransitioned to IV Reason For Visit: PNEUMONIA, CLL, H/O MRSA PNEUMONIA, MULTIPLE Physical Exam Vital Signs: Temp Pulse Resp BP Pulse Ox 97.6 F 114 H 22 H 156/108 H 99 08/11/18 11:14 08/11/18 11:14 08/11/18 11:14 08/11/18 11:14 08/11/18 11:14 Intake & Output 08/10/18 08/11/18 08/12/18 06:59 06:59 06:59 Intake Total 100 237 Balance 100 237 Weight 47 kg 46.1 kg General appearance: PRESENT: no acute distress Eye exam: PRESENT: PERRLA Respiratory exam: PRESENT: clear to auscultation sendy Cardiovascular exam: PRESENT: +S1, +S2 GI/Abdominal exam: PRESENT: soft Neurological exam: PRESENT: alert Results Laboratory Results: 08/06/18 15:00 08/06/18 15:00 08/09/18 22:32 Sputum Gram Stain - Final 07/31/18 07/31/18 07/31/18 16:01 16:01 21:25 Creatine Kinase < 20 L < 20 L CK-MB (CK-2) < 0.22 Troponin I < 0.012 NT-Pro-B Natriuret Pep 5000 H 07/31/18 08/01/18 08/01/18 21:25 01:50 01:50 Creatine Kinase < 20 L CK-MB (CK-2) < 0.22 < 0.22 Troponin I < 0.012 < 0.012 NT-Pro-B Natriuret Pep 08/01/18 08/01/18 06:00 06:00 Creatine Kinase < 20 L CK-MB (CK-2) < 0.22 Troponin I < 0.012 NT-Pro-B Natriuret Pep Impressions: Chest CT 07/31/18 00:00 IMPRESSION: Bibasilar consolidation/atelectasis and bronchiectasis. These may represent chronic changes, however, acute pneumonia cannot be excluded. Possible tracheobronchomalacia. TECHNICAL DOCUMENTATION: Quality ID # 436: Final reports with documentation of one or more dose reduction techniques (e.g., Automated exposure control, adjustment of the mA and/or kV according to patient size, use of iterative reconstruction technique) copyright 2011 [employer]- All Rights Reserved Chest X-Ray 07/31/18 15:02 IMPRESSION: Unchanged bibasilar scarring or atelectasis. No new airspace opacity. Head CT 07/31/18 17:23 IMPRESSION: 1. Mild chronic microvascular ischemia with no acute intracranial imaging findings. 2. There are multiple lytic lesions in the calvarium that are new. Metastases versus an infiltrative process. 3. Extensive sinus disease. EVIDENCE OF ACUTE STROKE: NO. Skeletal Survey 08/01/18 00:00 IMPRESSION: Small lytic lesions in the distal right femur metaphysis and biparietal skull worrisome for myeloma or metastatic disease Body Scan Nuclear Medicine 08/02/18 00:00 IMPRESSION: There appear to be metastatic lesions in some anterior ribs. There is also intense uptake in the costochondral junctions. Is there history of trauma to the chest? Head MRI 08/10/18 00:00 IMPRESSION: Negative for acute or sub-acute infarction. EVIDENCE OF ACUTE STROKE: NO. Assessment & Plan - Diagnosis (1) Pneumonia Qualifiers: Pneumonia type: due to unspecified organism Laterality: unspecified laterality Lung location: unspecified part of lung Qualified Code(s): J18.9 - Pneumonia, unspecified organism Is this a current diagnosis for this admission?: Yes (2) Lytic bone lesion of right femur Is this a current diagnosis for this admission?: Yes (3) Chronic lymphocytic leukemia Is this a current diagnosis for this admission?: Yes (4) DNR (do not resuscitate) Is this a current diagnosis for this admission?: Yes (5) CKD (chronic kidney disease) stage 4, GFR 15-29 ml/min Is this a current diagnosis for this admission?: Yes (6) Plasma cell dyscrasia Is this a current diagnosis for this admission?: Yes (7) Encephalopathy Is this a current diagnosis for this admission?: Yes - Plan Summary Plan Summary: Transition on p.o. medication to IV drugs
[2018-08-11] MEDS: LEVETIRACETAM 500 MG/NACL-ISO 500 MG/100 ML RTUPB IV SCH (18:20)
[2018-08-11] MEDS: FAMOTIDINE 20 MG TABLET PO SCH (23:27)
[2018-08-12] MEDS: IPRATROPIUM/ALBUTEROL 0.5-2.5 MG/3 ML AMPUL NEB SCH ×4 (02:50→20:14)
[2018-08-12] MEDS: LEVETIRACETAM 500 MG/NACL-ISO 500 MG/100 ML RTUPB IV SCH ×2 (05:52→17:04)
[2018-08-12 07:12] LABS: MEAN CORPUSCULAR HEMOGLOBIN 32.5 pg (27.0-33.4); MEAN CORPUSCULAR HGB CONC 32.3 g/dL (32.0-36.0); RED BLOOD COUNT 3.67 10^6/uL (3.72-5.28); RED CELL DISTRIBUTION WIDTH 24.8 % (11.5-14.0)
[2018-08-12 07:39] LABS: ANION GAP 8 (5-19); BLOOD UREA NITROGEN 56 mg/dL (7-20); CARBON DIOXIDE 38 mmol/L (22-30); CHLORIDE 118 mmol/L (98-107); GLUCOSE 96 mg/dL (75-110); POTASSIUM 3.7 mmol/L (3.6-5.0); SODIUM 163.8 mmol/L (137-145)
[2018-08-12 07:50] LABS: CALCIUM 13.1 mg/dL (8.4-10.2)
[2018-08-12] MEDS ORDERED: NORMAL SALINE 1000 ML 1,000 ML IV PRN (08:04)
[2018-08-12] MEDS ORDERED: PAMIDRONATE DISODIUM INJ 30 MG/10 ML VIAL IV ONE (08:05)
[2018-08-12 08:20] LABS: INTERNATIONAL RATION (INR) 0.98; PROTHROMBIN TIME 13.4 SEC (11.4-15.4)
[2018-08-12] MEDS: AMLODIPINE BESYLATE 5 MG TABLET PO SCH (08:26)
[2018-08-12 08:37] LABS: MEAN CORPUSCULAR VOLUME 101 fl (80-97); WHITE BLOOD COUNT 18.8 10^3/uL (4.0-10.5)
[2018-08-12 08:47] LABS: PLATELET COUNT 27 10^3/uL (150-450)
[2018-08-12] MEDS: METOPROLOL TARTRATE 25 MG TABLET PO SCH ×2 (09:45→22:43)
[2018-08-12] MEDS: CHOLECALCIFEROL (D3) 400 UNIT TABLET PO SCH (09:45)
[2018-08-12] MEDS: FLUTICASONE NASAL SPRAY 50 MCG/SPRY 120 SPRAY/16 GM NASL SCH ×2 (09:45→22:42)
[2018-08-12] MEDS: CALCITRIOL 0.25 MCG CAPSULE PO SCH (09:45)
[2018-08-12] MEDS: LEVETIRACETAM 500 MG TABLET PO SCH ×2 (09:45→22:43)
[2018-08-12] MEDS: MONTELUKAST SODIUM 10 MG TABLET PO SCH (09:45)
[2018-08-12] MEDS: BUDESONIDE/FORMOTEROL 160-4.5 MCG 60 PUFF/6 GM MDI IH SCH ×2 (09:45→22:43)
[2018-08-12] MEDS ORDERED: PAMIDRONATE DISODIUM 90 MG in NORMAL SALINE 250 ML IV ONE (11:30)
[2018-08-12 13:42] LABS: PATH REVIEW PATHOLOGIST REVIEWED
--- NOTE | 2018-08-12 18:16 | PDOC PROGRESS REPORT ---
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 She has extremely poor performance status, she is not a candidate for any aggressive chemotherapy with intent to cure. She was seen by the treating oncologist she recommended hospice/comfort care at this point a vacuum. The sputum culture grew polymicrobial including MRSA and gram-negative organisms this is all possibly colonization of the upper airway. The bone marrow biopsy was not done because severe thrombocytopenia Reason For Visit: PNEUMONIA, CLL, H/O MRSA PNEUMONIA, MULTIPLE Physical Exam Vital Signs: Temp Pulse Resp BP Pulse Ox 97.3 F 121 H 20 137/84 H 96 08/12/18 14:52 08/12/18 14:52 08/12/18 14:52 08/12/18 14:52 08/12/18 14:52 Intake & Output 08/11/18 08/12/18 08/13/18 06:59 06:59 06:59 Intake Total 237 218 470 Balance 237 218 470 Weight 46.1 kg 45.6 kg General appearance: PRESENT: no acute distress Eye exam: PRESENT: PERRLA Respiratory exam: PRESENT: clear to auscultation sendy Cardiovascular exam: PRESENT: +S1, +S2 GI/Abdominal exam: PRESENT: soft Results Laboratory Results: 08/12/18 06:05 08/12/18 06:05 08/12/18 08/12/18 08/12/18 06:05 06:05 08:30 WBC 18.8 H RBC 3.67 L Hgb 12.0 Hct 37.0 MCV 101 H D MCH 32.5 MCHC 32.3 RDW 24.8 H Plt Count 27 L* Sodium 163.8 H Potassium 3.7 Chloride 118 H Carbon Dioxide 38 H Anion Gap 8 BUN 56 H Creatinine 2.36 H Est GFR ( Amer) 25 L Est GFR (Non-Af Amer) 20 L Glucose 96 Calcium 13.1 H* PTH Intact 7.4 L 08/09/18 22:32 Sputum Gram Stain - Final 08/09/18 22:32 Sputum Sputum Culture - Final Mrsa (Meth Resis Staph Aureus) Pseudomonas Aeruginosa Citrobacter Freundii Yeast, Not Winifred Albicans Normal Josy Absent 07/31/18 07/31/18 07/31/18 16:01 16:01 21:25 Creatine Kinase < 20 L < 20 L CK-MB (CK-2) < 0.22 Troponin I < 0.012 NT-Pro-B Natriuret Pep 5000 H 07/31/18 08/01/18 08/01/18 21:25 01:50 01:50 Creatine Kinase < 20 L CK-MB (CK-2) < 0.22 < 0.22 Troponin I < 0.012 < 0.012 NT-Pro-B Natriuret Pep 08/01/18 08/01/18 06:00 06:00 Creatine Kinase < 20 L CK-MB (CK-2) < 0.22 Troponin I < 0.012 NT-Pro-B Natriuret Pep Impressions: Chest CT 07/31/18 00:00 IMPRESSION: Bibasilar consolidation/atelectasis and bronchiectasis. These may represent chronic changes, however, acute pneumonia cannot be excluded. Possible tracheobronchomalacia. TECHNICAL DOCUMENTATION: Quality ID # 436: Final reports with documentation of one or more dose reduction techniques (e.g., Automated exposure control, adjustment of the mA and/or kV according to patient size, use of iterative reconstruction technique) copyright 2011 [employer]- All Rights Reserved Chest X-Ray 07/31/18 15:02 IMPRESSION: Unchanged bibasilar scarring or atelectasis. No new airspace opacity. Head CT 07/31/18 17:23 IMPRESSION: 1. Mild chronic microvascular ischemia with no acute intracranial imaging findings. 2. There are multiple lytic lesions in the calvarium that are new. Metastases versus an infiltrative process. 3. Extensive sinus disease. EVIDENCE OF ACUTE STROKE: NO. Skeletal Survey 08/01/18 00:00 IMPRESSION: Small lytic lesions in the distal right femur metaphysis and biparietal skull worrisome for myeloma or metastatic disease Body Scan Nuclear Medicine 08/02/18 00:00 IMPRESSION: There appear to be metastatic lesions in some anterior ribs. There is also intense uptake in the costochondral junctions. Is there history of trauma to the chest? Head MRI 08/10/18 00:00 IMPRESSION: Negative for acute or sub-acute infarction. EVIDENCE OF ACUTE STROKE: NO. Assessment & Plan - Diagnosis (1) Pneumonia Qualifiers: Pneumonia type: due to unspecified organism Laterality: unspecified laterality Lung location: unspecified part of lung Qualified Code(s): J18.9 - Pneumonia, unspecified organism Is this a current diagnosis for this admission?: Yes (2) Lytic bone lesion of right femur Is this a current diagnosis for this admission?: Yes (3) Chronic lymphocytic leukemia Is this a current diagnosis for this admission?: Yes (4) DNR (do not resuscitate) Is this a current diagnosis for this admission?: Yes (5) CKD (chronic kidney disease) stage 4, GFR 15-29 ml/min Is this a current diagnosis for this admission?: Yes (6) Plasma cell dyscrasia Is this a current diagnosis for this admission?: Yes (7) Encephalopathy Is this a current diagnosis for this admission?: Yes (8) Hypercalcemia of malignancy Is this a current diagnosis for this admission?: Yes Plan: She was given pamidronate 90 mg IV and also normal saline (9) Thrombocytopenia Is this a current diagnosis for this admission?: Yes (10) CLL (chronic lymphoid leukemia) with failed remission Is this a current diagnosis for this admission?: Yes (11) Metabolic encephalopathy Is this a current diagnosis for this admission?: Yes
[2018-08-12 22:15] VITALS: BP 115/70
[2018-08-12] MEDS: FAMOTIDINE 20 MG TABLET PO SCH (22:43)
[2018-08-13] MEDS: IPRATROPIUM/ALBUTEROL 0.5-2.5 MG/3 ML AMPUL NEB SCH ×3 (02:17→13:01)
[2018-08-13] MEDS: LEVETIRACETAM 500 MG/NACL-ISO 500 MG/100 ML RTUPB IV SCH (06:07)
[2018-08-13] MEDS: AMLODIPINE BESYLATE 5 MG TABLET PO SCH (09:56)
[2018-08-13] MEDS: LEVETIRACETAM 500 MG TABLET PO SCH (09:56)
[2018-08-13] MEDS: FLUTICASONE NASAL SPRAY 50 MCG/SPRY 120 SPRAY/16 GM NASL SCH (09:56)
[2018-08-13] MEDS: MONTELUKAST SODIUM 10 MG TABLET PO SCH (09:57)
[2018-08-13] MEDS: CALCITRIOL 0.25 MCG CAPSULE PO SCH (09:57)
[2018-08-13] MEDS: CHOLECALCIFEROL (D3) 400 UNIT TABLET PO SCH (09:57)
[2018-08-13] MEDS: METOPROLOL TARTRATE 25 MG TABLET PO SCH (09:57)
[2018-08-13] MEDS: BUDESONIDE/FORMOTEROL 160-4.5 MCG 60 PUFF/6 GM MDI IH SCH (09:57)
--- NOTE | 2018-08-13 14:40 | CONSULTATION REPORT E ---
Consultation Report NAME: JANET ABBOTT : 1945 AGE: 72Y DATE: 08/13/2018 ROOM: 422 A TO: GABRIELLE SMITH M.D. FROM: ERUM HENAO M.D. Requesting Physician REASON FOR REFERRAL: CLL. HISTORY OF PRESENT ILLNESS: The patient is a 73-year-old woman with CLL. She had recurrence with right submandibular soft tissue swelling. She has been on previous chemotherapy regimens, including Rituxan and bendamustine, later switched to Zydelig and Rituxan in April of 2018. She was admitted to [facility] with respiratory failure during the month of May. She recovered and was discharged home. She has had multiple hospital admissions over the last year. She was admitted this time also with altered mental status, failure to thrive, and is currently being treated for Pseudomonas infection. She was seen at the bedside. She was drowsy. She was not arousal. HOSPITAL COURSE: On exam, she still has the right submandibular adenopathy. Lower extremities have no edema. Her CAT scans on this admission and MRI of the head August 10 were negative for acute or subacute infection, new lesions described. Bone scan August 02, 2018 had shown possible metastatic lesions involving the anterior (read?). Skeletal survey August 01: Small lytic lesions, distal right femur, metastases, worrisome for metastatic disease or myeloma. CT head without contrast showed the same in the calvarium. Chest x-ray: Bibasilar scarring, no atelectasis. CT chest without contrast July 31, 2018: Bibasilar consolidation, atelectasis, and bronchiectasis, possible chronic changes, acute pneumonia could not be excluded. Her labs during this hospitalization show a white count of 18, hemoglobin 12, platelet count 27. Peripheral blood smear shows increased blasts, about 10% to 15%. IMPRESSION AND PLAN: The patient is a 73-year-old woman who has a history of CLL. She appears to have transformed possibly to an acute leukemia with increased blasts. Unfortunately she has had multiple infections that probably compromised her health status. She has failure to thrive and she has been losing weight, especially since the last hospitalization. Her prognosis from the acute lymphocytic or lymphoblastic transformation does not carry a good prognosis. She is not a candidate for additional chemotherapy agents. I would suggest comfort care, DNR, and hospice at this stage. Her sister was at the bedside and I discussed this with her in detail. I thank you for this consultation and allowing me to be part of her care. DICTATING PHYSICIAN: GABRIELLE SMITH M.D. [id number] PHY#: [id number] ID: [id number] JOB#: [id number] ACCT: [id number] cc:GABRIELLE SMITH M.D. >
--- NOTE | 2018-08-13 19:18 | Death Summary ---
Summary Date : 08/13/18 Time of :: 15:00 Autopsy: No Resuscitation Status: Do Not Resuscitate - Final Diagnosis (1) Pneumonia Is this a current diagnosis for this admission?: Yes (2) Chronic lymphocytic leukemia Is this a current diagnosis for this admission?: Yes (3) Lytic bone lesion of right femur Is this a current diagnosis for this admission?: Yes (4) DNR (do not resuscitate) Is this a current diagnosis for this admission?: Yes (5) CKD (chronic kidney disease) stage 4, GFR 15-29 ml/min Is this a current diagnosis for this admission?: Yes (6) Plasma cell dyscrasia Is this a current diagnosis for this admission?: Yes (7) Encephalopathy Is this a current diagnosis for this admission?: Yes (8) Hypercalcemia of malignancy Is this a current diagnosis for this admission?: Yes (9) Thrombocytopenia Is this a current diagnosis for this admission?: Yes (10) CLL (chronic lymphoid leukemia) with failed remission Is this a current diagnosis for this admission?: Yes (11) Metabolic encephalopathy Is this a current diagnosis for this admission?: Yes Hospital Course:: Patient with a history of chronic lymphocytic leukemia with history of MRSA, gra m-negative pneumonia, chronic 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 On this admission she was found to have lytic bone lesions this prompted evaluation for plasma cell dyscrasias, the urine electrophoresis was positive for Bence-Kaminski protein consistent with light chain myeloma the serum protein electrophoresis was positive for M spike but the concentration was below the expected for multiple myeloma. Patient is severely immunocompromised with multiple hospital admission the sputum culture grew polymicrobial agent including MRSA, Pseudomonas Proteus most likely this is chronic colonization of the respiratory tract. On this admission she was made a DNR status, after consultation with family and also treating oncologist it was decided to transition her care to comfort care, she was seen today by hospice, while the hospice nurse was dis cussing with family patient
== END 2018-08-13 15:00 | DRG 193 ==
LOC: ER 14:52 → EH 18:19 → 4W 21:00
PROVIDERS: ADMIT Internal Medicine; ATTEND Internal Medicine
DX: J18.9 Pneumonia, unspecified organism (principal); G93.41 Metabolic encephalopathy; C91.10 Chronic lymphocytic leukemia of B-cell type not having achieved remission; C34.90 Malignant neoplasm of unspecified part of unspecified bronchus or lung; N39.0 Urinary tract infection, site not specified; N18.4 Chronic kidney disease, stage 4 (severe); Z66 Do not resuscitate; M89.9 Disorder of bone, unspecified; D75.9 Disease of blood and blood-forming organs, unspecified; I48.0 Paroxysmal atrial fibrillation; I12.9 Hypertensive chronic kidney disease with stage 1 through stage 4 chronic kidney disease, or unspecified chronic kidney disease; J44.9 Chronic obstructive pulmonary disease, unspecified; E83.52 Hypercalcemia; D69.6 Thrombocytopenia, unspecified; B96.5 Pseudomonas (aeruginosa) (mallei) (pseudomallei) as the cause of diseases classified elsewhere; M19.90 Unspecified osteoarthritis, unspecified site; Z53.09 Procedure and treatment not carried out because of other contraindication; Z86.14 Personal history of Methicillin resistant Staphylococcus aureus infection; Z79.51 Long term (current) use of inhaled steroids; Z79.52 Long term (current) use of systemic steroids; Z79.899 Other long term (current) drug therapy; Z22.322 Carrier or suspected carrier of Methicillin resistant Staphylococcus aureus
CPT/HCPCS: 36415; 70450; 70551; 71045; 71250; 77075; 78306; 80048; 80053; 80061; 80307; 81001; 82140; 82150; 82550; 82553; 82570; 83690; 83735; 83880; 83970; 84100; 84156; 84165; 84166; 84439; 84443; 84484; 85025; 85027; 85610; 85730; 86320; 86335; 87040; 87070; 87077; 87086; 87088; 87186; 87205; 93005; 93010; 94640; 94660; 96374; 99291; A9270-GY; A9561; J0696; J1953; J2270; J2430; J3370; J3490; J7030; J7050; J7060; J7620; Q9969